=== PATIENT | male | born 1950 | race Caucasian/White ===

== ENCOUNTER 2023-11-27 14:43 | Inpatient (IN) | payer OTHER, SELFPAY ==
[2023-11-27] VITALS (32 sets, daily range): BP systolic 98–154; BP diastolic 52–114; PULSE 2–65; BMI 34.0
[2023-11-27 12:25] LABS: % Basophils 0.5 % (0-2); % Eosinophils 2.1 % (0-6); % Monocytes 8.3 % (1.7-9.3); % Neutrophils 71.1 % (42.2-75.2); Absolute Basophils 0.1 10^3/uL (0-0.2); Absolute Eosinophils 0.2 10^3/uL (0-0.7); Absolute Immature Granulocytes 0.1 10^3/uL (0-0.05); Absolute Neutrophils 8.3 10^3/uL (1.4-6.5); Hematocrit 33.4 % (39.0-52.0); Hemoglobin 11.3 g/dL (13.0-18.0); Mean Corp Hgb Conc. 33.8 g/dL (33.0-37.0); Mean Corpuscular Hgb 31.6 pg (27.0-31.0); Mean Corpuscular Volume 93.3 fL (80.0-94.0); Nucleated Red Blood Cells % 0 % (-); Red Blood Cell Count 3.58 10^6/uL (4.70-6.10); Red Cell Dist. Width 14.1 % (11.5-14.5); White Blood Cell Count 11.6 10^3/uL (4.8-10.8)
--- NOTE | 2023-11-27 12:26 | ED.GENMED ---
History of Present Illness
<Chuckie Livingston PA-C - Last Filed: 11/27/23 17:22>
General
Chief Complaint: Change in Mental Status
Time Seen by Provider: 11/27/23 12:07
Travel History
Have you had any contact with someone who has COVID-19?: No
Do you have any symptoms of coronavirus? Fever > 100 degrees, chills, cough, shortness of breath, sore throat, loss of taste or smell, muscle aches, or headache?: No
History of Present Illness
History of Present Illness:
73-year-old male with history of COPD, complete heart block status post pacemaker, hypertension, and CHF presents the emergency department via EMS due to cough for the past several days. He apparently had an episode of slurred speech and lateral
tingling at 11:00 this morning and the facility was concerned for stroke. On arrival the patient is oriented fully and states he has no tingling, does feel fatigued however. He reports a wet cough for the past several days, had an outpatient chest
x-ray apparently earlier this week that was negative. He denies any fevers or shortness of breath but was noted to have saturations in the low 80% range on room air. He denies any leg swelling or known weight gain.
Past History
<Chuckie Livingston PA-C - Last Filed: 11/27/23 17:22>
Past History
ED Past Medical History: Arrthythmia (Atrial fib), Asthma, CHF, COPD, HTN, IDDM and Other (Sleep apnea uses CPAP, )
ED Past Surgical History: Cardiac (Pacemaker), Orthopedic (Right hip surgery, Back surgery, ) and Tonsilectomy
Social History
Tobacco: Non-smoker
Alcohol: None
Personal: Single
Living: with family (Sister)
Family History
Family History: Unable to obtain
Review of Systems
<Chuckie Livingston PA-C - Last Filed: 11/27/23 17:22>
Review of Systems
Allergies reviewed?: Yes
All Other Systems: ROS reviewed and negative except as documented in HPI and ROS
Phy Exam
<Chuckie Livingston PA-C - Last Filed: 11/27/23 17:22>
Physical Exam
Physical Exam:
GEN: Fatigued but easily aroused, no distress
Eyes: PERRLA, EOMs intact, no scleral icterus
HENT: NCAT, oral mucosa moist
Lungs: Bibasilar rhonchi, some transmitted upper airway sounds, no wheezes
Cardiac: RRR, no M/R/G, no peripheral edema. Radial pulses 2+ bilat
Abdomen: S, NT, ND, NABS, no masses or hepatosplenomegaly
Neuro: Lethargic but easily aroused, oriented fully
MSK: No gross deformity or ecchymosis. No edema. No digital clubbing
Skin: No rashes, petechiae. Normal color, no pallor or jaundice.
Psych: Calm, cooperative, proper hygiene
Course
<Chuckie Livingston PA-C - Last Filed: 11/27/23 17:22>
Orders/Labs/Results
Orders:
Orders
11/27/23 12:05
Electrocardiogram (*1) Urgent
Reason for Study: Fatigue / Weakness
EKG- Treatment ONCE
11/27/23 12:13
Basic Metabolic Panel Urgent
Complete Blood Count/With Diff Urgent
Pro-BNP [NT-proBNP] Urgent
11/27/23 12:23
COVID-19 Antigen Urgent
Source: Nasal Swab
Lactic Acid Urgent
Blood Culture Routine
CHAD Source: Blood/Venous
Specimen Description:
Influenza A+B Rapid Molecular Urgent
CHAD Source: Nasal Swab
Specimen Description:
11/27/23 12:24
Venous Blood Gas Urgent
%Oxygen/Room Air: 4L
11/27/23 12:47
CR Chest - 2 Views Urgent
Comment:
Reason For Exam: SOB
11/27/23 13:15
Azithromycin 500 mg/250 ml [Zithromax Infusion] 500 mg in 250 ml IV NOW
CefTRIAXone [Rocephin] 1,000 mg IV NOW STA
11/27/23 13:18
Bipap [RESP] Urgent
Patient to use own unit?: No
Inspiratory Pressure (cm H2O): 14
Expiratory Pressure (cm H2O): 6
11/27/23 13:44
MethylPREDNISolone PF [Solu-Medrol Pf] 125 mg IV NOW STA
11/27/23 13:56
Blood Culture Routine
CHAD Source: Blood/Venous
Specimen Description:
11/27/23 13:57
CT Chest W/o Iv Contrast Urgent
Comment:
Reason For Exam: hypoxia
11/27/23 14:12
Urinalysis Reflex To Culture Routine
Sputum Culture [Respiratory Culture/Gram Stain] Routine
CHAD Source: Sputum
Specimen Description:
11/27/23 14:14
Admit/Transfer Patient As Directed
Co-Sign Provider:
Level of Care: Inpatient admission
Assign to:: ICU
Physician / Group: ambrose baker
Diagnosis: hypoxic resp failure confusion concern pna, hypercarbia,johanne/ckd 3b
Reason for Hospitalization: hypoxic resp failure concern pna, hypercarbia,johanne/ckd 3b
Expected length of stay greater than two midnights?: Yes
ELOS- Estimated Length of Stay in days: 4
I certify the patient meets the requirements for IP care: Yes
Code Status As Directed
Resuscitation Status: Full Code
11/27/23 14:17
Procalcitonin Urgent
PCT Algorithmm Indication: Respiratory
11/27/23 14:19
0.9% Sodium Chloride 1000 ml [Nss] 1,000 ml IV BOLUS
11/27/23 14:30
PULMONARY CONSULT Routine
Consulting Provider: Jhoan Kaba
Was physician already notified: Yes
Reason for consult: hyerpcapnic hypoxic resp failure
11/27/23 15:15
ABG [Arterial Blood Gas] Urgent
%Oxygen/Room Air: bipap
Comment: hypoxia
11/27/23 16:00
Cefepime HCl [Maxipime] 1,000 mg IV Q12H
VANCOMYCIN Pharmacy to Dose [VANCOCIN Pharmacy to Dose] 1 each Pharmacy To Prepare [Call Pharmacy To Prepare] 0 ml IV PER PROTOCOL
Abnormal Lab Results
11/27/23 11/27/23
12:13 12:24
WBC 11.6 H 10^3/uL
(4.8-10.8)
RBC 3.58 L 10^6/uL
(4.70-6.10)
Hgb 11.3 L g/dL
(13.0-18.0)
Hct 33.4 L %
(39.0-52.0)
MCH 31.6 H pg
(27.0-31.0)
Abs Immat Gran (auto) 0.1 H 10^3/uL
(0-0.05)
Absolute Neuts (auto) 8.3 H 10^3/uL
(1.4-6.5)
Absolute Monos (auto) 1.0 H 10^3/uL
(0.1-0.6)
Immature Gran % 1.0 H %
(0-0.5)
Lymphocytes % 17.0 L %
(20.5-51.1)
VBG pH 7.29 L
(7.32-7.43)
VBG pCO2 67 H mmHg
(35-48)
VBG pO2 61 H mmHg
(30-50)
VBG HCO3 32.2 H mmol/L
(27)
BUN 46 H mg/dl
(9-20)
Creatinine 1.9 H mg/dL
(0.7-1.3)
Glucose 201 H mg/dl
(70-99)
11/27/23 12:13
11/27/23 12:13
Vital Signs
Initial and Last Documented VS:
Initial Vital Signs
Pulse Resp Pulse Ox
64 21 96
11/27/23 12:04 11/27/23 12:04 11/27/23 12:04
Last Documented Vital Signs
Temp Pulse Resp BP Pulse Ox
99.3 F 58 16 120/62 98
11/27/23 12:06 11/27/23 17:07 11/27/23 17:07 11/27/23 17:07 11/27/23 17:07
<Keith Paulino MD - Last Filed: 11/27/23 16:45>
Orders/Labs/Results
Orders:
Orders
11/27/23 12:05
Electrocardiogram (*1) Urgent
Reason for Study: Fatigue / Weakness
EKG- Treatment ONCE
11/27/23 12:13
Basic Metabolic Panel Urgent
Complete Blood Count/With Diff Urgent
Pro-BNP [NT-proBNP] Urgent
11/27/23 12:23
COVID-19 Antigen Urgent
Source: Nasal Swab
Lactic Acid Urgent
Blood Culture Routine
CHAD Source: Blood/Venous
Specimen Description:
Influenza A+B Rapid Molecular Urgent
CHAD Source: Nasal Swab
Specimen Description:
11/27/23 12:24
Venous Blood Gas Urgent
%Oxygen/Room Air: 4L
11/27/23 12:47
CR Chest - 2 Views Urgent
Comment:
Reason For Exam: SOB
11/27/23 13:15
Azithromycin 500 mg/250 ml [Zithromax Infusion] 500 mg in 250 ml IV NOW
CefTRIAXone [Rocephin] 1,000 mg IV NOW STA
11/27/23 13:18
Bipap [RESP] Urgent
Patient to use own unit?: No
Inspiratory Pressure (cm H2O): 14
Expiratory Pressure (cm H2O): 6
11/27/23 13:44
MethylPREDNISolone PF [Solu-Medrol Pf] 125 mg IV NOW STA
11/27/23 13:56
Blood Culture Routine
CHAD Source: Blood/Venous
Specimen Description:
11/27/23 13:57
CT Chest W/o Iv Contrast Urgent
Comment:
Reason For Exam: hypoxia
11/27/23 14:12
Urinalysis Reflex To Culture Routine
Sputum Culture [Respiratory Culture/Gram Stain] Routine
CHAD Source: Sputum
Specimen Description:
11/27/23 14:14
Admit/Transfer Patient As Directed
Co-Sign Provider:
Level of Care: Inpatient admission
Assign to:: ICU
Physician / Group: ambrose baker
Diagnosis: hypoxic resp failure confusion concern pna, hypercarbia,johanne/ckd 3b
Reason for Hospitalization: hypoxic resp failure concern pna, hypercarbia,johanne/ckd 3b
Expected length of stay greater than two midnights?: Yes
ELOS- Estimated Length of Stay in days: 4
I certify the patient meets the requirements for IP care: Yes
Code Status As Directed
Resuscitation Status: Full Code
11/27/23 14:17
Procalcitonin Urgent
PCT Algorithmm Indication: Respiratory
11/27/23 14:19
0.9% Sodium Chloride 1000 ml [Nss] 1,000 ml IV BOLUS
11/27/23 14:30
PULMONARY CONSULT Routine
Consulting Provider: Jhoan Kaba
Was physician already notified: Yes
Reason for consult: hyerpcapnic hypoxic resp failure
11/27/23 15:15
ABG [Arterial Blood Gas] Urgent
%Oxygen/Room Air: bipap
Comment: hypoxia
11/27/23 16:00
Cefepime HCl [Maxipime] 1,000 mg IV Q12H
VANCOMYCIN Pharmacy to Dose [VANCOCIN Pharmacy to Dose] 1 each Pharmacy To Prepare [Call Pharmacy To Prepare] 0 ml IV PER PROTOCOL
Abnormal Lab Results
11/27/23 11/27/23
12:13 12:24
WBC 11.6 H 10^3/uL
(4.8-10.8)
RBC 3.58 L 10^6/uL
(4.70-6.10)
Hgb 11.3 L g/dL
(13.0-18.0)
Hct 33.4 L %
(39.0-52.0)
MCH 31.6 H pg
(27.0-31.0)
Abs Immat Gran (auto) 0.1 H 10^3/uL
(0-0.05)
Absolute Neuts (auto) 8.3 H 10^3/uL
(1.4-6.5)
Absolute Monos (auto) 1.0 H 10^3/uL
(0.1-0.6)
Immature Gran % 1.0 H %
(0-0.5)
Lymphocytes % 17.0 L %
(20.5-51.1)
VBG pH 7.29 L
(7.32-7.43)
VBG pCO2 67 H mmHg
(35-48)
VBG pO2 61 H mmHg
(30-50)
VBG HCO3 32.2 H mmol/L
(22-27)
BUN 46 H mg/dl
(9-20)
Creatinine 1.9 H mg/dL
(0.7-1.3)
Glucose 201 H mg/dl
(70-99)
11/27/23 12:13
11/27/23 12:13
Vital Signs
Initial and Last Documented VS:
Initial Vital Signs
Pulse Resp Pulse Ox
64 21 96
11/27/23 12:04 11/27/23 12:04 11/27/23 12:04
Last Documented Vital Signs
Temp Pulse Resp BP Pulse Ox
99.3 F 58 16 120/62 98
11/27/23 12:06 11/27/23 17:07 11/27/23 17:07 11/27/23 17:07 11/27/23 17:07
Procedures
<Chuckie Livingston PA-C - Last Filed: 11/27/23 17:22>
Intubations
Procedure completed by: Chuckie Livingston PA-C
Method of Intubation: glidescope
Tube size (cm): 8.0
Placement confirmed by: auscutation, CXR, capnography and direct visualization
Breath sounds after intubation: equal
Intubation complications: no complications
<Chuckie Livingstno PA-C - Last Filed: 11/27/23 17:22>
MDM/Problems Addressed
MDM/Problems Addressed:
Patient presenting from nursing facility with several days of URI type symptoms. On arrival [facility] notes that he had slurred speech and unilateral paresthesias however the patient denies this, states that he has felt fatigued for several
days. Apparently had an outpatient chest x-ray that was negative for pneumonia. Patient's lung exam is limited by poor inspiration however no overt wheezing is heard, VBG notes slight acidosis with hypercapnia thus the patient is initiated on
BiPAP. Empiric IV antibiotics and steroids initiated due to the patient's significant hypoxemia. He is anticoagulated thus I do not suspect PE. Does not appear volume overloaded to suggest acute CHF. After patient was admitted to the hospital
service he became increasingly attended while remaining in the emergency department and ultimately required intubation. Upgraded to ICU level of care
<Chuckie Livingston PA-C - Last Filed: 11/27/23 17:22>
*Critical Care Note
Total Time (30-74mins, 75-104mins- exclusive of procedures): 90 minutes
comment:
Critical care time: 90 minutes
Critical care time was exclusive of: Separately billable procedures, treating other patients, and teaching time
Critical care was necessary to treat or prevent imminent or life-threatening deterioration of the following conditions: Acute respiratory failure with hypoxia and hypercapnia
Critical care time spent personally by me on the following activities:
[x] Review of old charts
[x] Obtaining history from patient or surrogate
[x] Ordering and review of the laboratory studies
[x] Ordering and review of radiographic studies
[x] Ordering and performing treatments and interventions
[x] Patient patient's response to treatment
[x] Development of treatment plan with patient or surrogate
<Chuckie Livingston PA-C - Last Filed: 11/27/23 17:22>
Update Note
Update Note:
1615: Called, patient increasingly obtunded compared to prior. Already has been admitted to the hospitalist service to the IMU however awaiting bed placement. Patient is now minimally arousable to sternal rub. Respiratory notified, will obtain
ABG but will plan for intubation
1645: Patient intubated successfully on first pass, chest x-ray shows good placement however repeat imaging reviewed by myself shows left upper lobe/retrocardiac density that is new compared to prior. Would be atypical for aspiration however this
is considered in the setting of BiPAP use. Patient's sister updated by phone regarding his status
ED Attending Note
<Chuckie Livingston PA-C - Last Filed: 11/27/23 17:22>
-
Portions of this chart may have been created with voice recognition software.� Occasional wrong word or��sound alike� substitutions may have occurred due to the inherent limitations of voice recognition software.
<Keith Paulino MD - Last Filed: 11/27/23 16:45>
ED Attending Note
Patient seen and examined by attending physician: Yes
ED Attending Note:
I have seen and evaluated the patient with a [id number] encounter. I have spoken to the advance practicer provider and involved in the medical history, the physical exam, medical decision making.
Evaluation and management service: agree unless noted differently below.
Results interpretation: agree unless noted differently below.
Focused HPI: 73-year-old male with history as documented presents from SNF for slurred speech and fatigue, cough for the past few days. Reported generalized fatigue.
Physical exam: Somewhat lethargic but arousable, vital signs normal. Rhonchorous breath sounds. No notable edema.
Medical Decision Makin-year-old male presents for cough and slurred speech and lethargy. Labs sent off including a CBC which shows a slight leukocytosis, CMP which shows baseline renal function with a creatinine of 1.9. He had a VBG which
showed CO2 retention, suspect some element of COPD. He was placed on BiPAP and admitted to hospital service. After admission mental status work is worsening becoming increasingly lethargic and difficult to arouse. Decision made to
intubate�patient intubated by physicians workers compensation claims assistant with me at the bedside. Pulmonology, surface lay out technician, hospitalist all came to bedside to assess and level of care upgraded.
Discharge Plan
Departure
Patient Disposition: Admit
Date of Disposition: 11/27/23
Time of Disposition: 13:48
Admit to: IMU
Presentation/result/management discussed w/ accepting MD/DO: Hospitalist
Discharge Problem:
Acute respiratory failure with hypoxia and hypercapnia
Interventions
Interventions:
*Risk Screen - Suicide Last Done: 11/27/23 12:11
*General Assessment Last Done: 11/27/23 12:49
*Neglect/Abuse Screening Last Done: 11/27/23 12:11
ED- Fall Risk Assessment Last Done: 11/27/23 12:48
ED- Pulmonary Assessment Last Done: 11/27/23 17:17
ED-Psychological Assessment Last Done: 11/27/23 12:50
ED- Neurological Assessment Last Done: 11/27/23 12:07
ED- Cardiac Assessment Last Done: 11/27/23 12:09
[2023-11-27 12:42] LABS: Venous Blood Gas HCO3 32.2 mmol/L (22-27); Venous Blood Gas O2 Sat % 86.8 %; Venous Blood Gas pCO2 67 mmHg (35-48); Venous Blood Gas pH 7.29 (7.32-7.43); Venous Blood Gas pO2 61 mmHg (30-50)
[2023-11-27 12:47] LABS: NT-proBNP 319 pg/ml
[2023-11-27 12:48] LABS: Blood Urea Nitrogen 46 mg/dl (9-20); Calcium 8.4 mg/dl (8.4-10.2); Carbon Dioxide 29 mmol/L (22-30); Chloride 104 mmol/L (98-107); Glucose 201 mg/dl (70-99); Sodium 138 mmol/L (135-145); eGFR 36.33
[2023-11-27 12:56] LABS: Lactic Acid 0.9 mmol/L (0.7-2.0)
[2023-11-27 12:59] LABS: COVID-19 Antigen Negative (Negative)
--- NOTE | 2023-11-27 13:54 | HPS.HSE ---
Addendum entered and electronically signed by Ramon Betts MD 11/27/23 14:48:
I saw and examined the patient.
The SLEEVE MAKER or PA's note was reviewed and I agree with the note.
Comment: 73-year-old male who presents with cough and hypoxia.
127/56, 57, 24, 99.3 F, 96% bipap 14/6, 4L O2
NAD, lethargic but arousable, NCAT
RRR, normal S1/S2
CTAB anteriorly
WBC 11.6, Hb 11.3
Cr 1.9
VB.29/67/61
CXR: Low lung volumes with moderate elevation of the right hemidiaphragm. No focal airspace disease. No pleural effusions.
Acute hypoxemic and hypercapnic respiratory failure:
-No obvious source of infection. For now we will continue antibiotics.
-Check CT scan of the chest (w/o IV contrast with NAOMI and PE being less likely as pt on therapeutic anticoagulation)
-Check ABG
-Consult pulmonary
Original Note:
Family Physician
-
Family Physician: Woody Rodney
Chief Complaint
-
Cough times several days, hypoxia
History of Present Illness
73-year-old male [facility] a [facility] cough for the past several days he was noted to have O2 saturation in the low 80%. He also reported episode of slurred speech with tingling at 11 AM this morning and his facility was
concerned about a stroke he however denies current symptoms but does report fatigue along with a headache for the past few days a wet productive cough of unclear color and short of breath. He reports he is too tired to answer more questions. He
denies sore throat, chest pain, palpitations, abdominal pain, nausea, vomiting, diarrhea, urinary symptoms.
PMH left retroperitoneal hematoma June 2023 with blood loss anemia, CKD 3B, DM 2, diabetic neuropathy, combined diastolic/systolic CHF, COPD, asthma, sleep apnea, third-degree heart block status post permanent pacemaker, paroxysmal A-fib, HTN,
chronic constipation obesity, nonambulatory
Medical History
Past Medical History
Past Medical History: Reports Other (diabetes, left hip pain with ambulatory dysfunction, chronic back pain, third-degree heart block status post permanent pacemaker, paroxysmal atrial fibrillation, hypertension, combined diastolic/systolic CHF,
COPD, asthma, sleep apnea, chronic constipation)
Additional Past Medical History:
left retroperitoneal hematoma June 2023 with blood loss anemia
Past Surgical History: Reports Other
Additional Past Surgical History:
Pacemaker�third-degree heart block
Right hip surgery
L4-L5 laminectomy
Tonsillectomy
Social History
Tobacco: Non-smoker
Alcohol: None
Drug: None
Family History
Family History: Unable to Obtain
Allergies / Home Medications
Allergies reflects when Allergies were last updated in [facility].
Home Medications with original date entered in [facility]
Allergy/Medication List:
Allergies
Allergy/AdvReac Type Severity Reaction Status Date / Time
No Known Allergies Allergy Verified 05/21/23 11:51
Home Medications
atorvastatin 10 mg tablet (Lipitor) 10 mg PO HS High cholesterol 09/04/22
escitalopram oxalate 20 mg tablet (Lexapro) 20 mg PO DAILY Depression 09/04/22
fluticasone 100 mcg-salmeterol 50 mcg/dose blistr powdr for inhalation (Wixela Inhub) 1 inh inhalation R BID Lung/breathing issues 09/05/22
loperamide 2 mg tablet (Imodium A-D) 2 mg PO BID PRN diarrhea 09/05/22
furosemide 40 mg tablet 40 mg PO DAILY #0 tabs 09/10/22
apixaban 5 mg tablet (Eliquis) 5 mg PO BID Blood thinner #30 tabs 05/06/23
gabapentin 300 mg capsule 300 mg PO BID Pain 06/12/23
docusate sodium 100 mg capsule 100 mg PO BID #0 caps 06/24/23
polyethylene glycol 3350 17 gram oral powder packet (HealthyLax) 17 g PO DAILY #0 ea 06/24/23
oxycodone 5 mg tablet 5 mg PO BID #4 tabs 06/26/23
acetaminophen 325 mg tablet (Tylenol) 650 mg PO Q4HPRN PRN mild pain 11/27/23
aluminum-mag hydroxide-simethicone 225 mg-200 mg-25 mg/5 mL oral susp 30 ml PO DAILYPRN PRN reflux 11/27/23
bisacodyl 10 mg rectal suppository (Dulcolax (bisacodyl)) 10 mg UT DAILYPRN PRN if no bm afte mom 11/27/23
buspirone 10 mg tablet 10 mg PO BID 11/27/23
carboxymethylcellulose 0.5 %-glycerin 0.9 % eye drops (Refresh Optive) 2 drp BOTH EYES BID 11/27/23
carvedilol 3.125 mg tablet 6.25 mg PO BID 11/27/23
hydralazine 25 mg tablet 25 mg PO TID 11/27/23
magnesium hydroxide 400 mg/5 mL oral suspension (Milk of Magnesia) 2,400 mg PO DAILYPRN PRN constipation 11/27/23
ondansetron HCl 4 mg tablet 4 mg PO Q6HPRN PRN nausea 11/27/23
pantoprazole 40 mg tablet,delayed release (Protonix) 40 mg PO DAILY 11/27/23
sennosides 8.6 mg tablet (senna) 17.2 mg PO BIDPRN PRN constipation 11/27/23
sodium phosphates 19 gram-7 gram/118 mL enema (Fleet Enema) 118 ml UT DAILYPRN PRN if no bm aftr dulcolax 11/27/23
valsartan 80 mg tablet 80 mg PO BID 11/27/23
Review of Systems
-
History Source: Patient
A 12 point ROS was completed and negative except as noted: Yes
Constitutional: Reports Fatigue; Denies Fever or Chills
EENT: Denies Sore Throat or Runny Nose
Respiratory: Reports Cough and Trouble Breathing
Cardiac: Denies Chest Pain, Diaphoresis, Palpitations or Syncope
Abdomen/GI: Denies Abdominal Pain, Nausea, Vomiting, Diarrhea, Constipated, Bloody Stools or Black Stools
: Denies Dysuria, Frequency, Flank Pain, Incontinence, Difficulty Voiding or Urgency
Musculoskeletal: Denies Joint Pain or Edema
Skin: Denies Itching or Rash
Neurological: Reports Weakness (Generalized); Denies Dizzy or Headache
Endocrine: Reports No Symptoms
Hematologic/Lymphatic: Reports No Symptoms
Psych: Reports Calm
Physical Exam
Vital Signs
Vital Signs
Temp Pulse Resp BP Pulse Ox
99.3 F 57 24 127/56 96
11/27/23 12:06 11/27/23 12:30 11/27/23 12:30 11/27/23 12:06 11/27/23 12:30
Physical Exam
General: Obese and Other (Lethargic male); No Pain or Fever
HEENT: NormoCephalic, Anicteric, PERRLA, Shell Conjunctivae, No Ptosis and Oxygen (BiPAP in place)
Respiratory: Rhonchi (Right upper/right middle lobe); No Wheezes or Rales
Cardiac: S1/S2 and Other (Paced on the monitor); No Murmur, Rub, Gallop or Peripheral Edema
Breast: Deferred by me
GI: Soft, Non Tender, Non Distended, Normal Bowel Sounds and No Hepatosplenomegaly
Rectal: Deferred by Provider
Genito-urinary: Deferred by me
Musculoskeletal: No Clubbing, No Cyanosis and No Edema
Skin: Warm and Dry; No Rash
Neuro: No Sensory Deficits and Other (Drowsy but oriented to name does answer some questions but states he is too tired to answer any more); No Slurred Speech, Facial Droop or Tremors
Psych: Calm
Laboratory Results
-
11/27/23 12:13
02/22/24 12:13
Laboratory Results
Lactic Acid 0.9 mmol/L (0.7-2.0) 11/27/23 12:23
Total Bilirubin Cancelled 11/27/23 12:13
AST Cancelled 11/27/23 12:13
ALT Cancelled 11/27/23 12:13
Alkaline Phosphatase Cancelled 11/27/23 12:13
Data Reviewed
-
CT Scan: Report Reviewed by me
Lab Data: Labs Reviewed by me
Impression/Plan
-
Impression/plan:
Admit to IMU
#Acute hypoxic hypercapnic respiratory failure unclear etiology concern poss PNa
Reported low 80% RA, 96% on BiPAP support, afebrile 99.3
COVID�flu negative
-Check CT chest
-Continue BiPAP support
-Consult pulmonary
-Blood cultures x 2, sputum culture, UA WORKFORCE DEVELOPMENT SPECIALIST
-IV Rocephin, IV Zithromax given in ER will change to IV vancomycin IV cefepime
-Speech swallow eval
PT/OT/case management eval
CXR: Low lung volumes with moderate elevation of the right hemidiaphragm
#Hypotension/Benign HTN 2/2 to volume depletion from diuretics
98/65 > 107/68
Hold carvedilol, Lasix 40 mg daily, hydralazine 25 mg 3 times daily, valsartan 80 mg twice daily
#NAOMI on CKD stage IIIb 2/2 to volume depletion from diuretics
Creat 1.9/bun 46 baseline creat 1.08 June 2023
Hold Lasix 40 mg daily
-IV NSS 1 L in ER then continue IV NSS 60 cc/h monitor LYNDON
#Combined diastolic/systolic CHF
I/O, daily weights
Follows with [facility]
2D echo 09/06/2022: EF 55 to 60%, normal LVS LVSF, trace MR, trace TR
#Paroxysmal A-fib
-Continue Eliquis
-Continue carvedilol 3.125 mg twice daily
EKG atrial sensed ventricular paced rhythm 59 bpm, QTc 485 MS no change from June 2023
#Permanent pacemaker�third-degree heart block
#DM2 with diabetic neuropathy
Accu-Cheks with SSI, check HgbA1c
-Continue gabapentin 300 mg twice daily
#COPD�no acute exacerbation
-Continue inhalers
#Asthma�no acute exacerbation
-cont inhalers
#Sleep apnea
-Patient uses BiPAP
#Fall with left retroperitoneal hematoma June 2023/blood loss anemia
Did receive 1 unit of blood at that time
#Hx back pain
#Spinal stimulator, laminectomies L4-L5
-Hold oxycodone 5 mg twice daily for drowsiness
#Chronic constipation
-Continue bowel regimen
#Depression
-Continue Lexapro 20 mg daily
#Obesity due to excess calorie consumption
-Weight loss recommended
DVT prophylaxis
Continue HOUSEKEEPER HEAD Eliquis
Full code
[2023-11-27] MEDS: ROCEPHIN 1000 MG IV (14:02)
[2023-11-27] MEDS: ZITHROMAX INFUSION 250 IV (14:05)
[2023-11-27] MEDS: SOLU-MEDROL PF 125 MG IV (14:12)
[2023-11-27] MEDS: NSS 1000 IV ×2 (14:45→19:52)
[2023-11-27 14:58] LABS: Procalcitonin 0.08 ng/ml (0.0-0.25)
[2023-11-27 15:25] LABS: B.E. 3.5 mmol/L; HCO3 29.1 mmol/L (21-28); O2 Saturation % 98.9 % (94-98); PCO2 48 mmHg (35-48); PO2 154 mmHg (83-108); pH 7.39 (7.35-7.45)
--- NOTE | 2023-11-27 15:36 | PHA.VAN.IN ---
Assessment
- Assessment
Renal Function: Appears elevated from baseline (SCR 1.3 in Jun 2023)
Plan
- Plan
Initial / Loading Dose: 2000mg - administration pending
Maintenance Regimen: dosing by level
Monitoring: random 11/28 0600
MRSA Screen: Ordered per protocol
Pharmacokinetics Vancomycin I
- -
Patient Age: 73
Patient Sex: Male
Vancomycin Day #: 1
Indication: Pulmonary/Respiratory
Requesting Provider: Jaguar Rojo
Pertinent Antimicrobial Allergies:
NKDA
Height / Weight:
Height 5 ft 11 in
Actual Weight 113.2 kg
Pertinent Past Medical History: BMI ~35
- Vital Signs / Lab Results
Temp Pulse Resp BP Pulse Ox
99.3 F 53 18 110/72 96
11/27/23 12:06 11/27/23 15:35 11/27/23 15:35 11/27/23 15:35 11/27/23 15:35
Lab Results - Hematology
11/27/23
12:13
WBC 11.6 H
Lab Results - Chemistry
11/27/23
12:13
BUN 46 H
Creatinine 1.9 H
Albumin Cancelled
11/27/23
12:23
Lactic Acid 0.9
Microbiology Results
11/27/23 12:23 Influenza Types A & B (RAJ) - Final
Nasal Swab Negative for Influenza A & B, NAAT
Negative results must be combined with clinical observations
and patient history.
Nucleic Acid Amplification test (NAAT)performed on the
[employer] platform.
--- NOTE | 2023-11-27 15:46 | CM ---
Addendum entered by Lesly Echeverria 11/27/23 15:52:
Per chart review as recently as 2022 patient had been at [facility] and was verbalizing that he was Short term care and wanted to return home with his sister. When patient able to discuss wishes will need to review.
Original Note:
Patient is a LTC patient at [facility]. CM spoke with the admissions person at [facility] to confirm. Patient was at [facility] in 2022 and did need auth at that time. No transfer form available for review at this time. Patient has
CPAP at facility. Plan is for patient to return to SNF when medically appropriate. CM will continue to follow for discharge planning needs.
Plan; return to SNF pending auth
[2023-11-27] MEDS: MAXIPIME 1000 MG IV (15:52)
[2023-11-27] MEDS: STERILE WATER FOR INJECTION 10 ML IV (15:52)
[2023-11-27] MEDS: VANCOCIN 540 MG IV (15:57)
[2023-11-27] MEDS: SUBLIMAZE 100 MCG IV ×2 (16:43→16:58)
--- NOTE | 2023-11-27 16:43 | CON.INTV ---
Addendum entered and electronically signed by Nima Dejesus MD 11/27/23 17:19:
Ventilator setting reviewed
Wean FiO2 down to 40%
Repeat ABG upon arrival to ICU and in a.m.
Avoid overventilation
Send tracheal culture
Original Note:
Consultation
Consultation Request
Date/Time Consultation Requested: 11/27
Date/Time Consultation Performed: 11/27
Reason for Consultation: Critical care
Medical History
-
History of Present Illness:
History obtained from the chart, patient currently being intubated. 73-year-old male with history of underlying asthma, sleep apnea on CPAP, atrial fibrillation with heart failure, history of multiple falls who presents with increased upper
respiratory symptoms for the past few days and hypoxia from the snf. ED records suggest slurred speech, tingling. Patient developed progressive obtundation, lethargy despite noninvasive ventilation and pCO2 level of 48. Patient was
intubated in the ED. Upon arrival to the ED, pulse 64, breathing at 21, 96%. Cultures were obtained, patient was given antibiotics and methylprednisolone. Chest x-ray revealed chronically elevated right hemidiaphragm with no obvious acute
findings. We are asked to help from critical care standpoint
.
PMH: Diabetes, atrial fibrillation, heart failure, third-degree heart block with pacemaker, hypertension, history of asthma, sleep apnea on CPAP in the past, history of multiple falls, retroperitoneal hematoma with anemia 2022, right hip surgery,
laminectomy, tonsillectomy
Past Medical History
Past Medical History: None (See above)
Past Surgical History: None (See above)
Social History
Tobacco: Non-smoker
Alcohol: None
Drug: None
Living: Care Home
Family History
Family History: Unable to Obtain
Allergies / Home Medications
Allergies
Allergy/AdvReac Type Severity Reaction Status Date / Time
No Known Allergies Allergy Verified 05/21/23 11:51
Home Medications
Medication Instructions Recorded Confirmed Last Taken Type
atorvastatin 10 mg tablet (Lipitor) 10 mg PO HS High cholesterol 09/04/22 11/27/23 Unknown History
escitalopram oxalate 20 mg tablet 20 mg PO DAILY Depression 09/04/22 11/27/23 Unknown History
(Lexapro)
fluticasone 100 mcg-salmeterol 50 1 inh inhalation R BID 09/05/22 11/27/23 Unknown History
mcg/dose blistr powdr for Lung/breathing issues
inhalation (Wixela Inhub)
loperamide 2 mg tablet (Imodium 2 mg PO BID PRN diarrhea 09/05/22 11/27/23 Unknown History
A-D)
furosemide 40 mg tablet 40 mg PO DAILY #0 tabs 09/10/22 11/27/23 Unknown Rx
apixaban 5 mg tablet (Eliquis) 5 mg PO BID Blood thinner #30 tabs 05/06/23 11/27/23 Unknown Rx
gabapentin 300 mg capsule 300 mg PO BID Pain 06/12/23 11/27/23 Unknown History
docusate sodium 100 mg capsule 100 mg PO BID #0 caps 06/24/23 11/27/23 Unknown Rx
polyethylene glycol 3350 17 gram 17 g PO DAILY #0 ea 06/24/23 11/27/23 Unknown Rx
oral powder packet (HealthyLax)
oxycodone 5 mg tablet 5 mg PO BID #4 tabs 06/26/23 11/27/23 Unknown Rx
acetaminophen 325 mg tablet 650 mg PO Q4HPRN PRN mild pain 11/27/23 11/27/23 Unknown History
(Tylenol)
aluminum-mag hydroxide-simethicone 30 ml PO DAILYPRN PRN reflux 11/27/23 11/27/23 Unknown History
225 mg-200 mg-25 mg/5 mL oral susp
bisacodyl 10 mg rectal suppository 10 mg [place] DAILYPRN PRN if no bm 11/27/23 11/27/23 Unknown History
(Dulcolax (bisacodyl)) afte mom
buspirone 10 mg tablet 10 mg PO BID 11/27/23 11/27/23 Unknown History
carboxymethylcellulose 0.5 2 drp BOTH EYES BID 11/27/23 11/27/23 Unknown History
%-glycerin 0.9 % eye drops
(Refresh Optive)
carvedilol 3.125 mg tablet 6.25 mg PO BID 11/27/23 11/27/23 Unknown History
hydralazine 25 mg tablet 25 mg PO TID 11/27/23 11/27/23 Unknown History
magnesium hydroxide 400 mg/5 mL 2,400 mg PO DAILYPRN PRN 11/27/23 11/27/23 Unknown History
oral suspension (Milk of Magnesia) constipation
ondansetron HCl 4 mg tablet 4 mg PO Q6HPRN PRN nausea 11/27/23 11/27/23 Unknown History
pantoprazole 40 mg tablet,delayed 40 mg PO DAILY 11/27/23 11/27/23 Unknown History
release (Protonix)
sennosides 8.6 mg tablet (senna) 17.2 mg PO BIDPRN PRN constipation 11/27/23 11/27/23 Unknown History
sodium phosphates 19 gram-7 118 ml [place] DAILYPRN PRN if no bm 11/27/23 11/27/23 Unknown History
gram/118 mL enema (Fleet Enema) aftr dulcolax
valsartan 80 mg tablet 80 mg PO BID 11/27/23 11/27/23 Unknown History
Review of Systems
-
Unable to Obtain full review of systems at this time due to: Patient Intubation
Vitals / Labs / Diagnostic Testing
Vital Signs
Temp Pulse Resp BP Pulse Ox
99.3 F 65 18 110/65 99
11/27/23 12:06 11/27/23 16:35 11/27/23 16:35 11/27/23 16:35 11/27/23 16:35
Lab Data
11/27/23 12:13
11/27/23 12:13
Laboratory Results
11/27/23
15:15
pH 7.39
pCO2 48
pO2 154 H
HCO3 29.1 H
O2 Delivery Level
Microbiology
11/27/23 12:23 Nasal Swab Influenza Types A & B (RAJ) - Final
Negative for Influenza A & B, NAAT
Negative results must be combined with clinical observations
and patient history.
Nucleic Acid Amplification test (NAAT)performed on the
[employer] platform.
Diagnostic Testing:
Physical Exam
-
HEENT: Normocephalic
Cardiovascular: S1/S2, Regular Rhythm, Murmur (n), Rub (n) and Peripheral Edema (tr)
Respiratory: Wheeze (n), Rales (n), Rhonchi (n), Non-Labored Respirations, Other (Decreased at base) and Other (ET tube)
GI: Soft and Non Distended
Neurology: Other (Sedated, post intubation)
Skin: Other (No rash, no clubbing, no cyanosis)
General: Comfortable (Lying flat)
Assessment
-
73-year-old male with history of hypertension, atrial fibrillation on anticoagulation, asthma, sleep apnea on CPAP therapy snf resident who presents with URI symptoms for few days. Patient was also noted to be hypoxic, lethargic,
progressive lethargy despite BiPAP therapy. Patient was intubated in the ER. We are asked to help from critical care standpoint 11/27/2023
Acute respiratory failure
Intubated in ED, 11/27/2023
Hypercapnia suspected
Leukocytosis
Questionable left lower lobe pneumonia on repeat imaging
Renal insufficiency, creatinine 1.9
CKD
Hyperglycemia
Conditions present prior to admission
History of Retroperitoneal hematoma June 2023
Hemorrhagic shock
Recurrent falls/ambulatory dysfunction
Chronic atrial fibrillation on Eliquis
Hypertension/hyperlipidemia
Diabetes type 2.�
Heart failure-diastolic and systolic
Third-degree heart block status post PPM
EARL on CPAP 9 cm.�
Chronic constipation.
Cholelithiasis
Right hip surgery.� Spinal stimulator.� Laminectomy.� Right shakir femur.� Tonsillectomy
[facility] resident
Plan/recommendations
At this time, patient remains critically ill
Presented with increased lethargy, upper respiratory symptoms, questionable hypoxia.
Became progressively lethargic despite noninvasive ventilation and pCO2 level of 48 which is likely compensated
Patient was intubated at the bedside in the ED
Follow-up chest x-ray revealed questionable left lower lobe pneumonia per my review, appropriate ET tube
Moving forward
Continue with current management including antibiotics for pneumonia. Patient resides at snf
Received Zithromax, Rocephin, vancomycin, cefepime
Influenza negative, blood cultures pending
Will send tracheal culture postintubation
Repeat potassium levels, received succinylcholine/etomidate for intubation
Initial sample hemolyzed
Patient with chronically elevated right hemidiaphragm per prior imaging
Target 6 cc/kg Vt
Following airway pressures
Avoid overventilation
Await head imaging to rule out intracranial process
Less likely thromboembolic disease, remains on Eliquis for atrial fibrillation
Reviewed with primary service, critical care nursing, respiratory care, ED nurse
Reviewed with pharmacy
TCCT 35 min
[2023-11-27] MEDS: DIPRIVAN 100 IV ×3 (17:00→23:56)
[2023-11-27 18:33] LABS: INR 1.89; PT 21.9 Sec (11.4-14.6); Potassium 4.2 mmol/L (3.5-5.1)
[2023-11-27 18:34] LABS: APTT 42.5 Sec (23.4-35.0)
[2023-11-27 19:49] LABS: Urine Albumin Trace (Neg - Trace); Urine Bilirubin Negative (Negative); Urine Character Clear (Clear); Urine Color Yellow; Urine Glucose Negative (Negative); Urine Ketone Negative (Negative); Urine Leukocyte Negative (Negative); Urine Nitrite Negative (Negative); Urine Occult Blood Negative (Negative); Urine Urobilinogen Negative (Neg - 1+)
[2023-11-27 20:04] LABS: Glucose - Point of Care 202 mg/dl (70-99)
[2023-11-27] MEDS: ADVAIR HFA 45/21 MCG INHALER 4 PUFF INH (20:08)
[2023-11-27] MEDS: NOVOLOG FLEXPEN 3 UNITS SC (20:11)
--- NOTE | 2023-11-27 20:15 | PTCARENOTE ---
Addendum entered by Debra Harper RN 11/27/23 21:39:
ICU SPEECH THERAPIST confirmed OGT placement via CXR.
Original Note:
received patient from ER at change of shift. pupils b/l 2mm brisk. propofol gtt infusing through PIV. V paced on monitor, HR in 60s. BP stable, see VS. temp 98F. #8 ETT, 24 at lip. AC 16-500-5-60%. rhonchi breath sounds noted. blood tinged
secretions through ETT. + bowel sounds.
1930- b/l soft wrist restraints placed. OGT inserted, CXR ordered by ICU SPEECH THERAPIST. temp sensing silverman catheter inserted, 500ml initial output. UA, MRSA, sputum sent. labs sent. CHG bath. plan of care ongoing.
[2023-11-27 20:39] LABS: Triglycerides 81 mg/dl (10-149)
[2023-11-27] MEDS: SUBLIMAZE 50 MCG IV ×2 (22:35→23:56)
[2023-11-27] MEDS: BUSPAR 10 MG TUBE (22:44)
[2023-11-27] MEDS: LIPITOR 10 MG TUBE (22:44)
[2023-11-27] MEDS: NEURONTIN 300 MG TUBE (22:44)
[2023-11-27] MEDS: ELIQUIS 5 MG TUBE (22:44)
[2023-11-27] MEDS: COLACE LIQUID 100 MG TUBE (22:44)
[2023-11-27] MEDS: REFRESH EYE DROPS (PF) 2 DROPS BOTH EYES (22:44)
[2023-11-27 23:36] LABS: Glucose - Point of Care 235 mg/dl (70-99)
[2023-11-27] MEDS: SUBLIMAZE 100 IV (23:57)
[2023-11-28] VITALS (25 sets, daily range): BP systolic 89–148; BP diastolic 42–77; BMI 34.0
[2023-11-28] MEDS: NOVOLOG FLEXPEN-MODERATE RESISTANCE 3 UNITS SC ×3 (00:16→17:32)
--- NOTE | 2023-11-28 00:19 | PTCARENOTE ---
Addendum entered by Debra Harper RN 11/28/23 02:04:
ICU FARM MACHINERY ENGINE MECHANIC updated sister via phone. [place] updated as well.
Original Note:
patient reassessed. prop and fent gtts infusing. vent settings unchanged, moderate amount of blood tinged secretions. oral care and suction provided. patient repositioned. plan of care ongoing.
[2023-11-28] MEDS: DIPRIVAN 100 IV ×5 (03:18→20:00)
[2023-11-28] MEDS: STERILE WATER FOR INJECTION 10 ML IV ×2 (03:18→15:09)
[2023-11-28] MEDS: MAXIPIME 2000 MG IV ×2 (03:18→15:09)
[2023-11-28 03:51] LABS: % Basophils 0.3 % (0-2); % Immature Granulocytes 3.1 % (0-0.5); % Lymphocytes 9.7 % (20.5-51.1); % Monocytes 1.9 % (1.7-9.3); Absolute Immature Granulocytes 0.3 10^3/uL (0-0.05); Absolute Lymphocytes 0.9 10^3/uL (1.2-3.4); Absolute Monocytes 0.2 10^3/uL (0.1-0.6); Absolute Neutrophils 7.7 10^3/uL (1.4-6.5); Hematocrit 30.5 % (39.0-52.0); Hemoglobin 10.8 g/dL (13.0-18.0); Mean Corp Hgb Conc. 35.4 g/dL (33.0-37.0); Mean Corpuscular Volume 87.6 fL (80.0-94.0); Mean Platelet Volume 13.4 fL (7.4-10.4); Nucleated Red Blood Cells % 0 % (-); Platelet Count 145 10^3/uL (130-400); Red Blood Cell Count 3.48 10^6/uL (4.70-6.10); Red Cell Dist. Width 13.7 % (11.5-14.5)
[2023-11-28 04:08] LABS: ALT (SGPT) 11 U/L (0-50); AST (SGOT) 14 U/L (17-59); Albumin 2.9 g/dl (3.5-5.0); Alkaline Phosphatase 68 U/L (38-126); Blood Urea Nitrogen 48 mg/dl (9-20); Calcium 8.6 mg/dl (8.4-10.2); Carbon Dioxide 24 mmol/L (22-30); Chloride 106 mmol/L (98-107); Estimated Creatinine Clearance 47 ml/min; Glucose 254 mg/dl (70-99); Potassium 3.6 mmol/L (3.5-5.1); Sodium 139 mmol/L (135-145); Total Bilirubin 0.8 mg/dl (0.2-1.3); Total Protein 6.3 g/dl (6.3-8.2); eGFR 41.52
[2023-11-28 04:18] LABS: B.E. 1.5 mmol/L; HCO3 24.2 mmol/L (21-28); O2 Saturation % 98.6 % (94-98); PCO2 31 mmHg (35-48); PO2 119 mmHg (83-108)
[2023-11-28 04:21] LABS: O2 Therapy 40%
[2023-11-28 04:53] LABS: Vancomycin Random 17.7 ug/ml
--- NOTE | 2023-11-28 05:08 | PTCARENOTE ---
patient reassessed. AM labs and ABG sent. vent settings adjusted: AC 14-500-5-40%. oral care and suction provided. breath sounds clear, slightly diminished. silverman care done. pt repositioned, pillows under extremities, restraints on. plan of care
ongoing.
[2023-11-28] MEDS: NOVOLOG FLEXPEN-MODERATE RESISTANCE 5 UNITS SC (05:23)
--- NOTE | 2023-11-28 07:15 | W.PN.INTV ---
Today's Communication / Plan
Recommendations
Transition to ASV
ABG in a.m.
Increase IV fluids, boluses as needed
May require PICC line
Follow hemoptysis
Replete potassium
Start tube feeds
Assessment
-
73-year-old male with history of hypertension, atrial fibrillation on anticoagulation, asthma, sleep apnea on CPAP therapy custodial resident who presents with URI symptoms for few days. Patient was also noted to be hypoxic, lethargic,
progressive lethargy despite BiPAP therapy. Patient was intubated in the ER. We are asked to help from critical care standpoint 11/27/2023
Acute respiratory failure
Intubated in ED, 11/27/2023
Hypercapnia suspected
Leukocytosis
Left lower lobe pneumonia
Intermittent hemoptysis
Renal insufficiency, creatinine 1.9
CKD
Hyperglycemia
Conditions present prior to admission
History of Retroperitoneal hematoma June 2023
Hemorrhagic shock
Right adrenal mass, stable compared to June 2023
Suspected adenoma per imaging
Recurrent falls/ambulatory dysfunction
Chronic atrial fibrillation on Eliquis
Hypertension/hyperlipidemia
Diabetes type 2.�
Heart failure-diastolic and systolic
Third-degree heart block status post PPM
EARL on CPAP 9 cm.�
Chronic constipation.
Cholelithiasis
Right hip surgery.� Spinal stimulator.� Laminectomy.� Right shakir femur.� Tonsillectomy
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
Plan/recommendations
At this time, patient remains critically ill, ventilator dependent
Marginal blood pressure noted, not requiring pressors
Lactate improved
Presented with increased lethargy, upper respiratory symptoms, questionable hypoxia.
Became progressively lethargic despite noninvasive ventilation and pCO2 level of 48 which is likely compensated
Patient was intubated at the bedside in the ED
Follow-up chest x-ray revealed questionable left lower lobe pneumonia per my review, appropriate ET tube
Moving forward
Continue with current management including antibiotics for pneumonia. Patient resides at custodial
Remains on cefepime/vancomycin. Discontinue vancomycin if MRSA negative
Follow cultures
Hemoptysis noted, on Eliquis
Follow clinically
Currently on volume-cycled ventilation
AC 14/500/5/40%
Plateau pressure 16
ABG 7.50/31/119
Avoid overventilation, transition to ASV 80%
ABG in the a.m.
No plans for weaning/extubation today
Follow electrolytes
Start tube feeds
Head CT without acute findings
Increased lethargy/obtundation likely secondary to sepsis/left lower lobe pneumonia
This is confirmed on CT imaging
Less likely thromboembolic disease, remains on Eliquis for atrial fibrillation
Reviewed with pharmacy, critical care nursing, respiratory care
TCCT 31 min
Subjective Dataa
Subjective Data
Date of Service:
Date of Service: November 28, 2023
Subjective:
Patient remains critically ill, on mechanical ventilation. Mild to moderate secretions through the night noted, bloody at times. Patient awakens with sedation vacation, moves all extremities. Marginal blood pressure noted. Urine output adequate
Objective Data
Data Reviewed
Vital Signs / I&O / Oxygen:
Vital Signs
Temp Pulse Resp BP Pulse Ox
96.8 F L 50 14 109/45 96
11/28/23 03:05 11/28/23 07:00 11/28/23 07:00 11/28/23 07:00 11/28/23 06:45
Intake and Output
11/27/23 11/28/23 11/29/23
06:59 06:59 06:59
Intake Total 1093.2 / 1093.2
Output Total 1300 / 1300
Balance -206.8 / -206.8
SaO2 [A/C] 97
SaO2 96
Nasal Cannula flow liters per 4
minute
Physical Exam
General: Comfortable and Other (Large neck)
HEENT: Normocephalic and Anicteric
Cardiovascular: S1-S2, Regular Rhythm, Murmur (n), Rub (n) and Peripheral Edema (tr)
Respiratory: Wheeze (n), Crackles (n), Rhonchi (n), ET Tube and Other (Decreased breath sounds)
GI: Soft, Non Distended and Other (OG tube)
Neurology: Lethargic (Sedated but moves all extremities during sedation vacation)
Skin: Cyanosis (n), Jaundice (n) and Rash (n)
Labs/Micro/Reports
Lab Data
11/28/23 03:29
11/28/23 03:29
Laboratory Results
11/27/23 11/27/23 11/27/23
15:15 16:22 18:05
PT 21.9 H
INR 1.89
APTT 42.5 H
pH 7.39 Cancelled
pCO2 48 Cancelled
pO2 154 H Cancelled
HCO3 29.1 H Cancelled
O2 Delivery Level Cancelled
11/28/23
04:05
PT
INR
APTT
pH 7.50 H
pCO2 31 L
pO2 119 H
HCO3 24.2
O2 Delivery Level 40%
Microbiology
11/27/23 19:42 Nose Nasal Screen MRSA (PCR) - Final
MRSA not detected - performed by PCR methodology.
11/27/23 12:23 Nasal Swab Influenza Types A & B (RAJ) - Final
Negative for Influenza A & B, NAAT
Negative results must be combined with clinical observations
and patient history.
Nucleic Acid Amplification test (NAAT)performed on the
[employer] platform.
[2023-11-28] MEDS: PROTONIX IV 40 MG IV (07:28)
[2023-11-28] MEDS: REFRESH EYE DROPS (PF) 2 DROPS BOTH EYES ×2 (07:29→20:08)
[2023-11-28] MEDS: BUSPAR 10 MG TUBE ×2 (07:29→20:08)
[2023-11-28] MEDS: NSS (PRESERVATIVE FREE) 10 ML IV (07:29)
[2023-11-28] MEDS: NEURONTIN 300 MG TUBE ×2 (07:29→20:09)
[2023-11-28] MEDS: ELIQUIS 5 MG TUBE ×2 (07:29→20:08)
[2023-11-28] MEDS: LEXAPRO 20 MG TUBE (07:29)
[2023-11-28] MEDS: COLACE LIQUID 100 MG TUBE ×2 (07:30→20:08)
[2023-11-28] MEDS: MIRALAX 17 GRAMS TUBE (07:30)
[2023-11-28] MEDS: ADVAIR HFA 45/21 MCG INHALER 4 PUFF INH ×2 (07:38→20:03)
--- NOTE | 2023-11-28 08:37 | PTCARENOTE ---
Addendum entered by Courtney Botello RN 11/28/23 09:18:
update to patient sister on phone. she was very tearful, states she will not be coming in to visit as 'I cannot see him like that'
Original Note:
report received, assessments per work list. sedated on propofol and fentanyl infusions. diprivan decreased per RASS. no nonverbal pain cues. monitor av pace, ett#8@24. settings adjustment to ASV by RT. ett suctions for thick bloody sputum. coarse
breath sounds anteriorly. diminished posteriorly. OGT placement verified by air auscultation, to LIS draining yellow brown fluid. clamped after medications. abdomen soft. hypoactive bowel sounds. silverman in place draining yellow urine. wrist
restraints maintained for patient safety
[2023-11-28 09:27] LABS: Glycohemoglobin (HgbA1c) 6.5 % (4.0-5.6)
[2023-11-28] MEDS: SUBLIMAZE 50 MCG IV ×3 (09:45→17:36)
--- NOTE | 2023-11-28 11:28 | W.PN.HOSP.TC ---
Today's Communication/Plan
-
see bold
Assessment / Plan
Assessment / Plan
Gen: NAD, intubated/sedated, NCAT
CV: RRR, +S1/S2, no m/r/g.
Resp: CTAB, no rales, wheezes, or rhonchi.
Abd: +BS, soft, NT, ND
Skin: No rashes.
Neuro: sedated
Psych: sedated
11/27/23 19:42 Nose Nasal Screen MRSA (PCR) - Final
MRSA not detected - performed by PCR methodology.
11/27/23 12:23 Nasal Swab Influenza Types A & B (RAJ) - Final
Negative for Influenza A & B, NAAT
Negative results must be combined with clinical observations
and patient history.
Nucleic Acid Amplification test (NAAT)performed on the
[employer] platform.
CXR 11/28/23: Low lung volumes with moderate elevation of the right hemidiaphragm. No focal airspace disease. No pleural effusions.
CT chest: Parenchymal lung opacities within the left lung as described, most likely representing pneumonia. There may also be a component of atelectasis. Radiographic follow-up is advised to assess for clearing and exclude underlying neoplasia.
Patchy groundglass pneumonitis in the right upper lobe, which is likely patchy pneumonia. Confluent and band shaped parenchymal opacity within the right lower lung, most likely atelectasis, although a component of pneumonia in this region is also
possible. Possible trace amount of posterior left pleural fluid. No significant right pleural effusion. Right adrenal gland mass, stable from CT of the abdomen and pelvis of June 23, 2023, and most likely an adenoma.
Acute hypoxemic and hypercapnic respiratory failure due to L-sided PNA:
-Currently on ASV, had sedation vacation today as per discussion with nursing
-sedation with propofol/fentanyl
-Flu/COVID NEG
-Currently on Vanco/Cefepime. With MRSA screen NEG can likely stop Vanco. Procal noted but continue abx for now.
-pulm/CC following
Hypotension:
-h/o essential HTN, home antihypertensives are on hold
NAOMI on CKD stage IIIb:
-Cr improving with IVFs
Chronic HFpEF:
-reasonable to update echo
Paroxysmal A-fib: cont Eliquis
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
DM2 with diabetic neuropathy: a1c 6.5%, Start Lantus 12U, cont SSI/accuchecks
Asthma and COPD: cont Advair
EARL: uses BIPAP HS
Fall with left retroperitoneal hematoma in June 2023
h/o back pain s/p spinal stimulator, laminectomies L4-L5
Chronic constipation: Cont Miralax
Depression: Cont Buspar/Lexapro
Obesity due to excess calories: Affects all aspects of care, encourage weight loss
Discussed with Dr. Dejesus.
FULL/Eliquis
Total critical care time spent = 35 min
Anticipated Discharge: > 48 hours
Subjective/Interval History
-
Date of Service: November 28, 2023
Objective Data
-
Labs:
Laboratory Results
11/28/23 11/28/23
03:29 04:05
WBC 9.0
Hgb 10.8 L
Hct 30.5 L
Plt Count 145
HCO3 24.2
Sodium 139
Potassium 3.6
Chloride 106
Carbon Dioxide 24
BUN 48 H
Creatinine 1.7 H
Glucose 254 H
Calcium 8.6
Total Bilirubin 0.8
AST 14 L
ALT 11
Alkaline Phosphatase 68
Vital Signs:
Vital Signs
Temp Pulse Resp BP Pulse Ox
97.1 F 51 12 113/49 97
11/28/23 08:00 11/28/23 11:15 11/28/23 11:15 11/28/23 10:00 11/28/23 11:15
I&O
11/27/23 11/28/23 11/29/23
06:59 06:59 06:59
Intake Total 1093.2 / 1188.7 918.0 / 918.0
Output Total 1300 / 1300 245 / 245
Balance -206.8 / -111.3 673.0 / 673.0
[2023-11-28] MEDS: LR 1000 IV ×2 (11:30→20:03)
[2023-11-28 11:39] LABS: Glucose - Point of Care 223 mg/dl (70-99)
--- NOTE | 2023-11-28 11:49 | PTCARENOTE ---
sedation vacation per work list documentation. patient followed simple commands, moved arms and legs with strength, but became agitated, attempting to pull out ETT, biting and tonguing tube. unable to redirect. increased nonverbal pain cues. prn
dose fentanyl given. Diprivan resumed per work list. reassessed. continues to suction for thick bloody sputum. repositioned. reviewed AccuCheck results with ICU pharmacist. wrist restraints maintained for patient safety
--- NOTE | 2023-11-28 12:52 | CM ---
CM following re: discharge planning.
Discussed in Rounds, reviewed pt's chart, met with pt and spoke to pt's sister Kyra over the phone. per Rounds meeting, pt is intubated in ED yesterday 11/27/2023 due to Acute respiratory failure, remains intubated, continue supportive care.
CM spoke to pt's sister Kyra and she confirmed that pt is a longterm care resident at [facility], uses a walker during therapy sessions and mostly uses a wheelchair.
CM spoke to [facility] liaison and she confirmed that pt is a [place] supervisor care resident, on Medicaid 15 day bed hold and pt will be accepted back when medically stable. Per [facility] liaison, an auth will require if pt needs skilled
services. Per liaison, an auth can be initiated if skilled services indicated and pt will be accepted with pending auth number.
D/C plan: return back to [facility] when medically stable.
CM will follow with discharge plan updates as hospitalization progresses
--- NOTE | 2023-11-28 13:44 | PTCARENOTE ---
tube feeds initiated as per orders
--- NOTE | 2023-11-28 15:46 | PTCARENOTE ---
Addendum entered by Courtney Botello RN 11/28/23 16:20:
Security Professional updated with decrease in urine output
Original Note:
patient reassessed. fentanyl bolus given for increased nonverbal pain cues. propofol adjustment per RASS. hypothermic, radiation engineer updated. Dmitry hugger applied. wrist restraints maintained for patient safety
[2023-11-28 17:30] LABS: Glucose - Point of Care 219 mg/dl (70-99)
--- NOTE | 2023-11-28 17:48 | PTCARENOTE ---
temp@goal,diprivan per work list. medicated with fentanyl for nonverbal pain cues
--- NOTE | 2023-11-28 20:00 | PTCARENOTE ---
Resumed care of pt laying in bed intubated, sedated on vent. Pt opens eyes to voice and tactile stimulation. Pt able to nod head, and follow simple commands. HR in the 50's AV paced on the monitor. POX 98% with #8.0 ETT to 24cm to right lip on
current vent settings ASV 80%, Peep 5, FIO2 40%. Lungs dec, course anterior. Pt suctioned for mod thick blood tinged secretions, clear secretions orally. OGT in place infusing Osmolite 1.2 @10ml/hr 25ml.flush. 110ml residual noted at this time, will
monitor. + bowel, round obese abd. Temp sensing Lewis in place draining yellow urine. Face flushed. Skin intact. + 1 generalized anasarca. Palpable peripheral pulses present. Right AC int infusing Fentanyl gtt @25mcg/hr, Propofol @20mcg/kg/hr. Left
hand Int infusing LR @100ml/hr. B/L wrist restraints in place per pt safety. Pt repositioned. No issues to report at this time. Will continue to monitor.
[2023-11-28] MEDS: LIPITOR 10 MG TUBE (22:58)
[2023-11-28] MEDS: LANTUS 0.119999999999999996 UNITS SC (23:00)
[2023-11-28] MEDS: NOVOLOG FLEXPEN-MODERATE RESISTANCE 1 UNITS SC (23:01)
[2023-11-28 23:11] LABS: Glucose - Point of Care 153 mg/dl (70-99)
[2023-11-29] VITALS (28 sets, daily range): BP systolic 96–175; BP diastolic 45–83; BMI 35.1
--- NOTE | 2023-11-29 00:30 | PTCARENOTE ---
Urine output dropping off. Bp dropping. Waqar BOYKIN notified. Orders obtained, see MAR. No other changes in assessment noted at this time. Will continue to monitor.
[2023-11-29] MEDS: NSS 1000 IV (01:02)
[2023-11-29] MEDS: DIPRIVAN 100 IV ×3 (01:56→17:37)
[2023-11-29] MEDS: MAXIPIME 2000 MG IV ×2 (03:18→15:50)
[2023-11-29] MEDS: STERILE WATER FOR INJECTION 10 ML IV ×2 (03:18→15:51)
[2023-11-29 03:59] LABS: B.E. 1.2 mmol/L; HCO3 24.9 mmol/L (21-28); O2 Saturation % 98.4 % (94-98); PCO2 35 mmHg (35-48); PO2 107 mmHg (83-108); pH 7.46 (7.35-7.45)
--- NOTE | 2023-11-29 04:00 | PTCARENOTE ---
BP now improved. Urine output has picked up. Complete bed bath provided. Pt continues to follow commands, nods head, denies pain. No other changes in assessment noted at this time. Will continue to monitor.
[2023-11-29 04:01] LABS: O2 Therapy ASV 80%/ 40%
[2023-11-29 04:40] LABS: % Basophils 0.5 % (0-2); % Eosinophils 0.7 % (0-6); % Immature Granulocytes 1.6 % (0-0.5); % Lymphocytes 18.5 % (20.5-51.1); % Monocytes 6.3 % (1.7-9.3); % Neutrophils 72.4 % (42.2-75.2); Absolute Basophils 0.1 10^3/uL (0-0.2); Absolute Eosinophils 0.1 10^3/uL (0-0.7); Absolute Immature Granulocytes 0.2 10^3/uL (0-0.05); Absolute Monocytes 0.7 10^3/uL (0.1-0.6); Absolute Neutrophils 7.8 10^3/uL (1.4-6.5); Hematocrit 28.4 % (39.0-52.0); Hemoglobin 9.8 g/dL (13.0-18.0); Mean Corp Hgb Conc. 34.5 g/dL (33.0-37.0); Mean Corpuscular Volume 89.9 fL (80.0-94.0); Mean Platelet Volume 13.2 fL (7.4-10.4); Nucleated Red Blood Cells % 0 % (-); Platelet Count 151 10^3/uL (130-400); Red Blood Cell Count 3.16 10^6/uL (4.70-6.10); White Blood Cell Count 10.8 10^3/uL (4.8-10.8)
[2023-11-29 05:01] LABS: ALT (SGPT) 10 U/L (0-50); AST (SGOT) 12 U/L (17-59); Albumin 2.6 g/dl (3.5-5.0); Alkaline Phosphatase 58 U/L (38-126); Blood Urea Nitrogen 47 mg/dl (9-20); Carbon Dioxide 24 mmol/L (22-30); Chloride 111 mmol/L (98-107); Estimated Creatinine Clearance 54 ml/min; Glucose 128 mg/dl (70-99); Potassium 3.7 mmol/L (3.5-5.1); Sodium 139 mmol/L (135-145); Total Bilirubin 0.5 mg/dl (0.2-1.3); Total Protein 5.6 g/dl (6.3-8.2); eGFR 48.25
[2023-11-29] MEDS: NOVOLOG FLEXPEN-MODERATE RESISTANCE SC ×4 (05:44→23:04)
[2023-11-29] MEDS: LR 1000 IV ×2 (05:44→15:51)
[2023-11-29 05:56] LABS: Glucose - Point of Care 131 mg/dl (70-99)
--- NOTE | 2023-11-29 07:11 | W.PN.INTV ---
Today's Communication / Plan
Recommendations
CPAP intermittently throughout the day
Continue antibiotics
Continue IV fluids, follow urine output
Follow cultures
Rest on ASV overnight
Chest x-ray, ABG in a.m.
Assessment
-
73-year-old male with history of hypertension, atrial fibrillation on anticoagulation, asthma, sleep apnea on CPAP therapy group home resident who presents with URI symptoms for few days. Patient was also noted to be hypoxic, lethargic,
progressive lethargy despite BiPAP therapy. Patient was intubated in the ER. We are asked to help from critical care standpoint 11/27/2023
Acute respiratory failure
Intubated in ED, 11/27/2023
Hypercapnia suspected
Leukocytosis
Left lower lobe pneumonia
Intermittent hemoptysis
Renal insufficiency, creatinine 1.9
CKD
Hyperglycemia
Conditions present prior to admission
History of Retroperitoneal hematoma June 2023
Hemorrhagic shock
Right adrenal mass, stable compared to June 2023
Suspected adenoma per imaging
Recurrent falls/ambulatory dysfunction
Chronic atrial fibrillation on Eliquis
Hypertension/hyperlipidemia
Diabetes type 2.�
Heart failure-diastolic and systolic
Third-degree heart block status post PPM
EARL on CPAP 9 cm.�
Chronic constipation.
Cholelithiasis
Right hip surgery.� Spinal stimulator.� Laminectomy.� Right shakir femur.� Tonsillectomy
[facility]ail resident
Plan/recommendations
At this time, patient remains critically ill, ventilator dependent
Marginal blood pressure noted, Improved
Urine output improved, continues with IV fluids
Lactate improved
Presented with increased lethargy, upper respiratory symptoms, questionable hypoxia.
Became progressively lethargic despite noninvasive ventilation and pCO2 level of 48 which is likely compensated
Patient was intubated at the bedside in the ED
Tolerating spontaneous breathing
Moving forward
Continue with current management including antibiotics for pneumonia. Patient resides at group home
Remains on cefepime
Follow cultures, negative to date
Hemoptysis noted, on Eliquis. Bloody secretions noted with suction
Follow clinically
Repeat chest x-ray in a.m.
Currently on volume-cycled ventilation
ASV 80% / 5/40%
ABG 7.46/35/107
Intermittent CPAP throughout the day but no plans for extubation given significant secretions
Chest x-ray in a.m., rest on ASV 80%
Follow electrolytes
Continue tube feeds
Head CT without acute findings
Increased lethargy/obtundation likely secondary to sepsis/left lower lobe pneumonia
This is confirmed on CT imaging
Less likely thromboembolic disease, remains on Eliquis for atrial fibrillation
Reviewed with critical care nursing, respiratory care
TCCT 31 min
Subjective Dataa
Subjective Data
Date of Service:
Date of Service: November 29, 2023
Subjective:
Patient remains intubated. Significant secretions noted. Tolerating spontaneous breathing. Remains on ASV mode
Objective Data
Data Reviewed
Vital Signs / I&O / Oxygen:
Vital Signs
Temp Pulse Resp BP Pulse Ox
97.2 F 50 15 166/83 96
11/29/23 04:00 11/29/23 06:00 11/29/23 06:00 11/29/23 06:00 11/29/23 06:00
Intake and Output
11/28/23 11/29/23 11/30/23
06:59 06:59 06:59
Intake Total 1093.2 / 1188.7 4927.6 / 4927.6
Output Total 1300 / 1300 1240 / 1240
Balance -206.8 / -111.3 3687.6 / 3687.6
SaO2 [ASV] 98
SaO2 [A/C] 97
SaO2 96
Nasal Cannula flow liters per 4
minute
Physical Exam
General: Comfortable and Other (Large neck)
HEENT: Normocephalic and Anicteric
Cardiovascular: S1-S2, Regular Rhythm, Murmur (n), Rub (n) and Peripheral Edema (tr)
Respiratory: Wheeze (n), Crackles (n), Rhonchi (n), ET Tube and Other (Decreased breath sounds)
GI: Soft, Non Distended and Other (OG tube)
Neurology: Lethargic (Sedated but moves all extremities during sedation vacation)
Skin: Cyanosis (n), Jaundice (n) and Rash (n)
Labs/Micro/Reports
Lab Data
11/29/23 04:08
11/29/23 04:08
Laboratory Results
11/29/23
03:54
pH 7.46 H
pCO2 35
pO2 107
HCO3 24.9
O2 Delivery Level Asv 80%/ 40%
Microbiology
11/27/23 13:56 Blood/Venous Blood Culture - Preliminary
No Growth in 24 hours- Final report to follow
11/27/23 12:23 Blood/Venous Blood Culture - Preliminary
No Growth in 24 hours- Final report to follow
11/27/23 19:42 Endotracheal Respiratory Culture - Preliminary
NO GROWTH
11/27/23 19:42 Endotracheal Gram Stain - Preliminary
11/27/23 19:42 Nose Nasal Screen MRSA (PCR) - Final
MRSA not detected - performed by PCR methodology.
11/27/23 12:23 Nasal Swab Influenza Types A & B (RAJ) - Final
Negative for Influenza A & B, NAAT
Negative results must be combined with clinical observations
and patient history.
Nucleic Acid Amplification test (NAAT)performed on the
[employer] platform.
[2023-11-29] MEDS: ADVAIR HFA 45/21 MCG INHALER 4 PUFF INH ×2 (07:53→17:53)
[2023-11-29] MEDS: LEXAPRO 20 MG TUBE (07:56)
[2023-11-29] MEDS: BUSPAR 10 MG TUBE ×2 (07:56→19:51)
[2023-11-29] MEDS: NEURONTIN 300 MG TUBE ×2 (07:56→19:50)
[2023-11-29] MEDS: COLACE LIQUID 100 MG TUBE ×2 (07:56→19:50)
[2023-11-29] MEDS: ELIQUIS 5 MG TUBE ×2 (07:56→19:50)
[2023-11-29] MEDS: MIRALAX 17 GRAMS TUBE (07:56)
[2023-11-29] MEDS: PROTONIX IV 40 MG IV (07:56)
[2023-11-29] MEDS: REFRESH EYE DROPS (PF) 2 DROPS BOTH EYES ×2 (07:56→19:51)
[2023-11-29] MEDS: NSS (PRESERVATIVE FREE) 10 ML IV (07:57)
--- NOTE | 2023-11-29 08:19 | W.PN.HOSP.TC ---
Today's Communication/Plan
-
see bold
Assessment / Plan
Assessment / Plan
Gen: NAD, intubated/sedated, NCAT
CV: zafar, reg rhythm, +S1/S2, no m/r/g.
Resp: CTAB anteriorly, no rales, wheezes, or rhonchi.
Abd: remains +BS, soft, NT, ND
Skin: No rashes.
Neuro: sedated
Psych: sedated
11/27/23 13:56 Blood/Venous Blood Culture - Preliminary
No Growth in 24 hours- Final report to follow
11/27/23 12:23 Blood/Venous Blood Culture - Preliminary
No Growth in 24 hours- Final report to follow
11/27/23 19:42 Endotracheal Respiratory Culture - Preliminary
NO GROWTH
11/27/23 19:42 Endotracheal Gram Stain - Preliminary
11/27/23 19:42 Nose Nasal Screen MRSA (PCR) - Final
MRSA not detected - performed by PCR methodology.
11/27/23 12:23 Nasal Swab Influenza Types A & B (RAJ) - Final
Negative for Influenza A & B, NAAT
Negative results must be combined with clinical observations
and patient history.
Nucleic Acid Amplification test (NAAT)performed on the
[employer] platform.
CXR 11/28/23: Low lung volumes with moderate elevation of the right hemidiaphragm. No focal airspace disease. No pleural effusions.
CT chest: Parenchymal lung opacities within the left lung as described, most likely representing pneumonia. There may also be a component of atelectasis. Radiographic follow-up is advised to assess for clearing and exclude underlying neoplasia.
Patchy groundglass pneumonitis in the right upper lobe, which is likely patchy pneumonia. Confluent and band shaped parenchymal opacity within the right lower lung, most likely atelectasis, although a component of pneumonia in this region is also
possible. Possible trace amount of posterior left pleural fluid. No significant right pleural effusion. Right adrenal gland mass, stable from CT of the abdomen and pelvis of June 23, 2023, and most likely an adenoma.
Echo: Left ventricle is mildly dilated mild concentric remodeling and low normal left
�ventricular systolic function. Mild global hypokinesis. Left ventricular
�ejection fraction is 50%. Normal diastolic function.
�Normal right ventricular size and function. Pacer wire seen in right ventricle.
�Normal atria.
�Aortic sclerosis without stenosis.
�No other significant valve abnormalities.
�The IVC is dilated and does not collapse due to mechanical ventilation.
�No evidence of pulmonary hypertension.
�
�Compared to prior study of 09/06/2022, the left ventricle is now mildly dilated
�with global hypokinesis.� The ejection fraction has fallen from 55-60% to 50%.
Acute hypoxemic and hypercapnic respiratory failure due to L-sided PNA:
-Currently on ASV, had sedation vacation today as per discussion with nursing
-sedation with propofol
-Flu/COVID NEG
-Cont Cefepime. Procal noted but continue abx for now.
-pulm/CC following
Hypotension:
-h/o essential HTN, home antihypertensives are on hold
-BP has improved.
-restart Coreg
NAOMI on CKD stage IIIb:
-Cr improving with IVFs
Chronic HFpEF:
-Echo 11/28/23 as above, notable for for mildly dilated LV with global hypokinesis and worsening EF to 50% compared to prior
Paroxysmal A-fib: cont Eliquis
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
DM2 with diabetic neuropathy: a1c 6.5%, cont Lantus/SSI/accuchecks
Asthma and COPD: cont Advair
EARL: uses BIPAP HS
Fall with left retroperitoneal hematoma in June 2023
h/o back pain s/p spinal stimulator, laminectomies L4-L5
Chronic constipation: Cont Miralax
Depression: Cont Buspar/Lexapro
Obesity due to excess calories: Affects all aspects of care, encourage weight loss
FULL/Eliquis
Total critical care time spent = 31 min
Anticipated Discharge: > 48 hours
Subjective/Interval History
-
Date of Service: November 29, 2023
Intubated/sedated.
Objective Data
-
Labs:
Laboratory Results
11/29/23 11/29/23
03:54 04:08
WBC 10.8
Hgb 9.8 L
Hct 28.4 L
Plt Count 151
HCO3 24.9
Sodium 139
Potassium 3.7
Chloride 111 H
Carbon Dioxide 24
BUN 47 H
Creatinine 1.5 H
Glucose 128 H
Calcium 8.0 L
Total Bilirubin 0.5
AST 12 L
ALT 10
Alkaline Phosphatase 58
Vital Signs:
Vital Signs
Temp Pulse Resp BP Pulse Ox
97.0 F 65 11 166/83 98
11/29/23 07:38 11/29/23 08:09 11/29/23 08:09 11/29/23 06:00 11/29/23 08:09
I&O
11/28/23 11/29/23 11/30/23
06:59 06:59 06:59
Intake Total 1093.2 / 1188.7 4927.6 / 4927.6
Output Total 1300 / 1300 1240 / 1240
Balance -206.8 / -111.3 3687.6 / 3687.6
[2023-11-29] MEDS: COREG 6.25 MG PO ×2 (09:00→19:50)
--- NOTE | 2023-11-29 09:20 | PTCARENOTE ---
Rec'd pt at 0700. Pt lightly sedate on vent on Propofol/Fentanyl gtts. Opens eyes to verbal stimuli, nods head appropriately to questions. Follows simple commands, SHELBY with gen weakness. Monitor AV-paced. Lungs sct coarse/dim, pox 98% on 40% fio2.
Abd large/round. +BS. Lewis draining yellow urine. 0820-sedation decreased for SBT. Pt placed on 5/5/40%. Pt's sister updated via phone this am.
[2023-11-29 12:03] LABS: Glucose - Point of Care 130 mg/dl (70-99)
--- NOTE | 2023-11-29 12:41 | PTCARENOTE ---
Pt with increased agitation, banging on siderails and grabbing at nursing staff. TV dropping into 200's. Pt placed back on ASV setting, sedation resumed. Pt nodding appropriately to questions and updated on current situation.
[2023-11-29] MEDS: SUBLIMAZE 100 IV (15:51)
[2023-11-29 18:10] LABS: Glucose - Point of Care 124 mg/dl (70-99)
--- NOTE | 2023-11-29 19:55 | PTCARENOTE ---
Received pt. at 1900. Pt. currently in bed. Intubated and sedated. Arousable. Nods appropriately and following simple commands. Heart rhythm AV paced. BP hypertensive, scheduled dose of Coreg given. Ventilator settings verified. Lungs sound coarse
and diminished. OG tube in place, tube feeds running per order. Lewis catheter in place, draining without urine. Skin as documented. Discussed plan of care. Vital signs stable at this time.
[2023-11-29] MEDS: LIPITOR 10 MG TUBE (21:33)
[2023-11-29] MEDS: LANTUS 0.119999999999999996 UNITS SC (23:08)
[2023-11-29 23:16] LABS: Glucose - Point of Care 103 mg/dl (70-99)
[2023-11-30] VITALS (25 sets, daily range): BP systolic 88–152; BP diastolic 39–92; BMI 35.9
--- NOTE | 2023-11-30 00:07 | PTCARENOTE ---
Pt. assessment unchanged. Appears comfortable at this time. Ventilator settings are unchanged. Hygiene care performed. Vital signs stable at this time.
[2023-11-30] MEDS: DIPRIVAN 100 IV ×2 (01:08→11:42)
[2023-11-30] MEDS: LR 1000 IV ×3 (01:12→20:31)
[2023-11-30] MEDS: MAXIPIME 2000 MG IV ×2 (04:09→16:19)
[2023-11-30] MEDS: STERILE WATER FOR INJECTION 10 ML IV ×2 (04:09→16:19)
--- NOTE | 2023-11-30 04:19 | PTCARENOTE ---
Pt. assessment remains unchanged. AM labs drawn. Vital signs stable at this time.
[2023-11-30 04:24] LABS: % Eosinophils 2.3 % (0-6); % Lymphocytes 30.7 % (20.5-51.1); % Monocytes 7.5 % (1.7-9.3); % Neutrophils 55.5 % (42.2-75.2); Absolute Basophils 0.1 10^3/uL (0-0.2); Absolute Eosinophils 0.2 10^3/uL (0-0.7); Absolute Immature Granulocytes 0.2 10^3/uL (0-0.05); Absolute Lymphocytes 2.5 10^3/uL (1.2-3.4); Absolute Monocytes 0.6 10^3/uL (0.1-0.6); Absolute Neutrophils 4.4 10^3/uL (1.4-6.5); Hematocrit 28.5 % (39.0-52.0); Hemoglobin 9.9 g/dL (13.0-18.0); Mean Corp Hgb Conc. 34.7 g/dL (33.0-37.0); Mean Corpuscular Hgb 30.6 pg (27.0-31.0); Mean Platelet Volume 12.7 fL (7.4-10.4); Nucleated Red Blood Cells % 0 % (-); Platelet Count 147 10^3/uL (130-400); Red Blood Cell Count 3.24 10^6/uL (4.70-6.10); Red Cell Dist. Width 13.8 % (11.5-14.5)
[2023-11-30 04:29] LABS: HCO3 25.1 mmol/L (21-28); O2 Saturation % 98.5 % (94-98); PCO2 33 mmHg (35-48); PO2 101 mmHg (83-108); pH 7.49 (7.35-7.45)
[2023-11-30 05:16] LABS: ALT (SGPT) < 10 U/L (0-50); AST (SGOT) 19 U/L (17-59); Albumin 2.3 g/dl (3.5-5.0); Alkaline Phosphatase 35 U/L (38-126); Blood Urea Nitrogen 45 mg/dl (9-20); Calcium 8.3 mg/dl (8.4-10.2); Carbon Dioxide 25 mmol/L (22-30); Chloride 108 mmol/L (98-107); Estimated Creatinine Clearance 68 ml/min; Glucose 108 mg/dl (70-99); Potassium 3.9 mmol/L (3.5-5.1); Sodium 137 mmol/L (135-145); Total Bilirubin 0.7 mg/dl (0.2-1.3); Total Protein 5.6 g/dl (6.3-8.2); Triglycerides 114 mg/dl (10-149); eGFR > 60.00
[2023-11-30] MEDS: NOVOLOG FLEXPEN-MODERATE RESISTANCE SC ×4 (05:26→23:25)
--- NOTE | 2023-11-30 07:17 | W.PN.INTV ---
Today's Communication / Plan
Recommendations
CPAP wean throughout the day
Continue IV fluids. Creatinine improved
Still with significant secretions
Continue antibiotics
Possible SBT in a.m.
Assessment
-
73-year-old male with history of hypertension, atrial fibrillation on anticoagulation, asthma, sleep apnea on CPAP therapy [facility] who presents with URI symptoms for few days. Patient was also noted to be hypoxic, lethargic,
progressive lethargy despite BiPAP therapy. Patient was intubated in the ER. We are asked to help from critical care standpoint 11/27/2023
Acute respiratory failure
Intubated in ED, 11/27/2023
Hypercapnia suspected
Leukocytosis
Left lower lobe pneumonia
Intermittent hemoptysis
Renal insufficiency, creatinine 1.9
CKD
Hyperglycemia
Anemia
Conditions present prior to admission
History of Retroperitoneal hematoma June 2023
Hemorrhagic shock
Right adrenal mass, stable compared to June 2023
Suspected adenoma per imaging
Recurrent falls/ambulatory dysfunction
Chronic atrial fibrillation on Eliquis
Hypertension/hyperlipidemia
Diabetes type 2.�
Heart failure-diastolic and systolic
Third-degree heart block status post PPM
EARL on CPAP 9 cm.�
Chronic constipation.
Cholelithiasis
Right hip surgery.� Spinal stimulator.� Laminectomy.� Right shakir femur.� Tonsillectomy
intermediate resident
Plan/recommendations
At this time, patient remains critically ill, ventilator dependent
Tolerated CPAP for few hours on 11/29, then became agitated, increase secretions
Marginal blood pressure noted, Improved
Urine output improved, creatinine improved from admission 1.9, down to 1.2
Lactate improved
Presented with increased lethargy, upper respiratory symptoms, questionable hypoxia.
Became progressively lethargic despite noninvasive ventilation and pCO2 level of 48 which is likely compensated
Still with secretions
Moving forward
Continue with current management including antibiotics for pneumonia. [facility]
Remains on cefepime
Follow cultures, negative to date
Hemoptysis noted, on Eliquis. Bloody secretions noted with suction
Chest x-ray with poor lung volumes, left lower lobe pneumonia per my review
Currently on volume-cycled ventilation
Transition to CPAP throughout the day, 8
Rest on ASV 80%/5/40%
ABG 7. 49/33/101
Avoid overventilation
Possible SBT in the a.m.
Follow electrolytes
Continue tube feeds
OG tube in place
Head CT without acute findings
Increased lethargy/obtundation likely secondary to sepsis/left lower lobe pneumonia
This is confirmed on CT imaging
Patient does move all extremities, following commands with sedation vacation
Less likely thromboembolic disease, remains on Eliquis for atrial fibrillation
Reviewed with critical care nursing, respiratory care
TCCT 31 min
Subjective Dataa
Subjective Data
Date of Service:
Date of Service: November 30, 2023
Subjective:
Patient remains critically ill, ventilator dependent. Still with significant secretions, occasionally bloody. Tolerate CPAP for few hours yesterday, transition back to ASV due to rapid shallow breathing, agitation. Patient does open eyes and
follow commands
Objective Data
Data Reviewed
Vital Signs / I&O / Oxygen:
Vital Signs
Temp Pulse Resp BP Pulse Ox
97.9 F 50 11 108/60 99
11/30/23 04:00 11/30/23 06:30 11/30/23 06:30 11/30/23 06:00 11/30/23 06:30
Intake and Output
11/29/23 11/30/23 12/01/23
06:59 06:59 06:59
Intake Total 4927.6 / 5078.3 3547.9 / 3547.9
Output Total 1240 / 1320 1960 / 1960
Balance 3687.6 / 3758.3 1587.9 / 1587.9
SaO2 [CPAP/PSV] 99
SaO2 [ASV] 98
SaO2 [A/C] 97
SaO2 99
Nasal Cannula flow liters per 4
minute
Physical Exam
General: Comfortable and Other (Large neck)
HEENT: Normocephalic and Anicteric
Cardiovascular: S1-S2, Regular Rhythm, Murmur (n), Rub (n) and Peripheral Edema (tr)
Respiratory: Wheeze (n), Crackles (n), Rhonchi (n), ET Tube and Other (Decreased breath sounds)
GI: Soft, Non Distended (Obese), Non Tender and Other (OG tube)
Neurology: No Motor Deficits (Moves all extremities) and Lethargic (Follows commands, opens eyes, nods appropriately)
Skin: Cyanosis (n), Jaundice (n) and Rash (n)
Labs/Micro/Reports
Lab Data
11/30/23 03:55
11/30/23 03:55
Laboratory Results
11/30/23
04:17
pH 7.49 H
pCO2 33 L
pO2 101
HCO3 25.1
O2 Delivery Level
Microbiology
11/27/23 13:56 Blood/Venous Blood Culture - Preliminary
No Growth in 48 hours- Final report to follow
11/27/23 19:42 Endotracheal Respiratory Culture - Preliminary
11/27/23 19:42 Endotracheal Gram Stain - Preliminary
11/27/23 12:23 Blood/Venous Blood Culture - Preliminary
No Growth in 48 hours- Final report to follow
11/27/23 19:42 Nose Nasal Screen MRSA (PCR) - Final
MRSA not detected - performed by PCR methodology.
11/27/23 12:23 Nasal Swab Influenza Types A & B (RAJ) - Final
Negative for Influenza A & B, NAAT
Negative results must be combined with clinical observations
and patient history.
Nucleic Acid Amplification test (NAAT)performed on the
[employer] platform.
[2023-11-30] MEDS: PROTONIX IV 40 MG IV (07:38)
[2023-11-30] MEDS: NSS (PRESERVATIVE FREE) 10 ML IV (07:38)
[2023-11-30] MEDS: COLACE LIQUID 100 MG TUBE ×2 (07:38→20:29)
[2023-11-30] MEDS: NEURONTIN 300 MG TUBE ×2 (07:38→20:29)
[2023-11-30] MEDS: ELIQUIS 5 MG TUBE ×2 (07:39→20:24)
[2023-11-30] MEDS: REFRESH EYE DROPS (PF) 2 DROPS BOTH EYES ×2 (07:39→20:23)
[2023-11-30] MEDS: MIRALAX 17 GRAMS TUBE (07:39)
[2023-11-30] MEDS: BUSPAR 10 MG TUBE ×2 (07:39→20:24)
[2023-11-30] MEDS: LEXAPRO 20 MG TUBE (07:39)
[2023-11-30] MEDS: COREG 6.25 MG PO ×2 (07:39→20:24)
[2023-11-30] MEDS: ADVAIR HFA 45/21 MCG INHALER 4 PUFF INH ×2 (07:54→20:41)
--- NOTE | 2023-11-30 08:14 | W.PN.HOSP.TC ---
Today's Communication/Plan
-
see bold
Assessment / Plan
Assessment / Plan
Gen: NAD, intubated/sedated but opens eyes, NCAT
Eyes: EOMI, no scleral icterus
CV: remains zafar, reg rhythm, +S1/S2, no m/r/g.
Resp: CTAB anteriorly, no rales, wheezes, or rhonchi.
Abd: remains +BS, soft, NT, ND
Skin: No rashes.
Neuro: opens eyes
Psych: sedated
11/27/23 13:56 Blood/Venous Blood Culture - Preliminary
No Growth in 48 hours- Final report to follow
11/27/23 19:42 Endotracheal Respiratory Culture - Preliminary
11/27/23 19:42 Endotracheal Gram Stain - Preliminary
11/27/23 12:23 Blood/Venous Blood Culture - Preliminary
No Growth in 48 hours- Final report to follow
11/27/23 19:42 Nose Nasal Screen MRSA (PCR) - Final
MRSA not detected - performed by PCR methodology.
11/27/23 12:23 Nasal Swab Influenza Types A & B (RAJ) - Final
Negative for Influenza A & B, NAAT
Negative results must be combined with clinical observations
and patient history.
Nucleic Acid Amplification test (NAAT)performed on the
[employer] platform.
CXR 11/28/23: Low lung volumes with moderate elevation of the right hemidiaphragm. No focal airspace disease. No pleural effusions.
CT chest: Parenchymal lung opacities within the left lung as described, most likely representing pneumonia. There may also be a component of atelectasis. Radiographic follow-up is advised to assess for clearing and exclude underlying neoplasia.
Patchy groundglass pneumonitis in the right upper lobe, which is likely patchy pneumonia. Confluent and band shaped parenchymal opacity within the right lower lung, most likely atelectasis, although a component of pneumonia in this region is also
possible. Possible trace amount of posterior left pleural fluid. No significant right pleural effusion. Right adrenal gland mass, stable from CT of the abdomen and pelvis of June 23, 2023, and most likely an adenoma.
Echo: Left ventricle is mildly dilated mild concentric remodeling and low normal left
�ventricular systolic function. Mild global hypokinesis. Left ventricular
�ejection fraction is 50%. Normal diastolic function.
�Normal right ventricular size and function. Pacer wire seen in right ventricle.
�Normal atria.
�Aortic sclerosis without stenosis.
�No other significant valve abnormalities.
�The IVC is dilated and does not collapse due to mechanical ventilation.
�No evidence of pulmonary hypertension.
�
�Compared to prior study of 09/06/2022, the left ventricle is now mildly dilated
�with global hypokinesis.� The ejection fraction has fallen from 55-60% to 50%.
Acute hypoxemic and hypercapnic respiratory failure due to L-sided PNA:
-Currently on ASV, had sedation vacation today as per discussion with nursing
-sedation with propofol
-Flu/COVID NEG
-Cont Cefepime. Procal noted but continue abx for now.
-pulm/CC following
Hypotension:
-h/o essential HTN, home antihypertensives were held on admission
-BP improved and Coreg was restarted. Cont with hold parameters (noting SBPs 80-90s on 11/30/23).
NAOIM on CKD stage IIIb:
-Cr improving with IVFs
Chronic HFpEF:
-Echo 11/28/23 as above, notable for for mildly dilated LV with global hypokinesis and worsening EF to 50% compared to prior
Paroxysmal A-fib: cont Eliquis
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
DM2 with diabetic neuropathy: a1c 6.5%, cont Lantus/SSI/accuchecks
Asthma and COPD: cont Advair
EARL: uses BIPAP HS
Fall with left retroperitoneal hematoma in June 2023
h/o back pain s/p spinal stimulator, laminectomies L4-L5
Chronic constipation: Cont Miralax
Depression: Cont Buspar/Lexapro
Obesity due to excess calories: Affects all aspects of care, encourage weight loss
RN updated
FULL/Eliquis
Total critical care time spent = 32 min
Anticipated Discharge: > 48 hours
Subjective/Interval History
-
Date of Service: November 30, 2023
Intubated, sedated but opens eyes.
Objective Data
-
Labs:
Laboratory Results
11/30/23 11/30/23
03:55 04:17
WBC 8.0
Hgb 9.9 L
Hct 28.5 L
Plt Count 147
HCO3 25.1
Sodium 137
Potassium 3.9
Chloride 108 H
Carbon Dioxide 25
BUN 45 H
Creatinine 1.2
Glucose 108 H
Calcium 8.3 L
Total Bilirubin 0.7
AST 19
ALT < 10
Alkaline Phosphatase 35 L
Vital Signs:
Vital Signs
Temp Pulse Resp BP Pulse Ox
97.9 F 76 25 152/92 98
11/30/23 07:56 11/30/23 07:40 11/30/23 07:40 11/30/23 07:40 11/30/23 07:47
I&O
11/29/23 11/30/23 12/01/23
06:59 06:59 06:59
Intake Total 4927.6 / 5078.3 3547.9 / 3547.9
Output Total 1240 / 1320 1959 / 1960
Balance 3687.6 / 3758.3 1587.9 / 1587.9
--- NOTE | 2023-11-30 09:26 | PTCARENOTE ---
Rec'd pt at 0700. Pt lightly sedate on Propofol/Fentanyl gtts on vent. Eyes are open, pt anxious and attempting to pull at ETT. Able to verbally calm pt, instructed not to pull at any tubes/wires. Reoriented pt to current situation. Pt nods head
appropriately. Monitor AV-paced 50's. Lungs dim right base, few fine rales left base. Pox 97% on 40% fio2. Pt desaturated to 86% with repositioning/turning, recovered quickly once HOB elevated. Pt suctioned for large amts thick greene, blood tinged
secretions via ETT. +BS, abd soft/nt. Tolerating tube feeds via OGT. Lewis draining yellow urine. 08-Pt placed on SBT 5/5/40%.
[2023-11-30 11:54] LABS: Glucose - Point of Care 117 mg/dl (70-99)
--- NOTE | 2023-11-30 12:53 | PTCARENOTE ---
Pt continues on SBT without issue, no changes in assessment. Pt's sister updated via phone.
--- NOTE | 2023-11-30 16:17 | PTCARENOTE ---
~1330-pt placed back on ASV setting d/t apnea ventilation
[2023-11-30 17:11] LABS: Glucose - Point of Care 108 mg/dl (70-99)
[2023-11-30] MEDS: LIPITOR 10 MG TUBE (20:23)
--- NOTE | 2023-11-30 21:13 | PTCARENOTE ---
Pt received at 19:00. Intubated and sedated on propofol and fentanyl as ordered. RASS = 0 to -1, Ox1-2. Nods head appropriately and follows simple commands. 100% AV paced, HR 50. #8 ETT @ 24cm, repositioned from R to L. Breath sounds coarse,
thick/greene/blood tinged secretions via ETT. ASV 80%, 40% FiO2, +5. OGT in place, infusing TF as ordered, no residuals. Lewis in place, clear yellow urine. Safe environment maintained, plan of care ongoing.
[2023-11-30] MEDS: LANTUS 0.119999999999999996 UNITS SC (22:36)
[2023-11-30 23:29] LABS: Glucose - Point of Care 135 mg/dl (70-99)
[2023-12-01] VITALS (30 sets, daily range): BP systolic 110–188; BP diastolic 55–92; PULSE 2–75; BMI 36.4
[2023-12-01] MEDS: DIPRIVAN 100 IV (00:19)
[2023-12-01] MEDS: STERILE WATER FOR INJECTION 10 ML IV ×2 (04:11→16:53)
[2023-12-01] MEDS: MAXIPIME 2000 MG IV ×2 (04:12→16:53)
[2023-12-01] MEDS: SUBLIMAZE 50 MCG IV (04:23)
--- NOTE | 2023-12-01 04:28 | PTCARENOTE ---
Pt agitated, CPOT = 8. Suctioned for large amount of thick greene/blood tinged secretions via ETT. PRN fentanyl given and gtt titrated as ordered.
[2023-12-01 04:31] LABS: % Basophils 0.7 % (0-2); % Eosinophils 4.2 % (0-6); % Immature Granulocytes 6.1 % (0-0.5); % Lymphocytes 23.2 % (20.5-51.1); % Monocytes 7.3 % (1.7-9.3); % Neutrophils 58.5 % (42.2-75.2); Absolute Basophils 0.1 10^3/uL (0-0.2); Absolute Eosinophils 0.3 10^3/uL (0-0.7); Absolute Immature Granulocytes 0.4 10^3/uL (0-0.05); Absolute Lymphocytes 1.7 10^3/uL (1.2-3.4); Absolute Monocytes 0.5 10^3/uL (0.1-0.6); Absolute Neutrophils 4.2 10^3/uL (1.4-6.5); Hematocrit 27.6 % (39.0-52.0); Hemoglobin 9.7 g/dL (13.0-18.0); Mean Corp Hgb Conc. 35.1 g/dL (33.0-37.0); Mean Corpuscular Hgb 31.2 pg (27.0-31.0); Mean Corpuscular Volume 88.7 fL (80.0-94.0); Mean Platelet Volume 12.6 fL (7.4-10.4); Nucleated Red Blood Cells % 0 % (-); Platelet Count 145 10^3/uL (130-400); Red Blood Cell Count 3.11 10^6/uL (4.70-6.10); Red Cell Dist. Width 13.8 % (11.5-14.5); White Blood Cell Count 7.2 10^3/uL (4.8-10.8)
[2023-12-01 04:48] LABS: ALT (SGPT) < 10 U/L (0-50); AST (SGOT) 13 U/L (17-59); Albumin 2.3 g/dl (3.5-5.0); Alkaline Phosphatase 55 U/L (38-126); Blood Urea Nitrogen 39 mg/dl (9-20); Calcium 8.2 mg/dl (8.4-10.2); Carbon Dioxide 25 mmol/L (22-30); Chloride 106 mmol/L (98-107); Estimated Creatinine Clearance 69 ml/min; Glucose 117 mg/dl (70-99); Potassium 3.7 mmol/L (3.5-5.1); Sodium 137 mmol/L (135-145); Total Bilirubin 0.7 mg/dl (0.2-1.3); Total Protein 5.3 g/dl (6.3-8.2); eGFR > 60.00
[2023-12-01] MEDS: SUBLIMAZE 100 IV (04:57)
[2023-12-01] MEDS: NOVOLOG FLEXPEN-MODERATE RESISTANCE SC ×4 (05:00→23:32)
[2023-12-01] MEDS: LR 1000 IV ×2 (06:31→16:53)
[2023-12-01] MEDS: ADVAIR HFA 45/21 MCG INHALER 4 PUFF INH (07:28)
--- NOTE | 2023-12-01 08:20 | W.PN.INTV ---
Today's Communication / Plan
Recommendations
CPAP wean throughout the day
Still with significant secretions --> start chest PT with mucomyst and DuoNebs TID
Continue antibiotics
outpatient sleep study
Assessment
-
73-year-old male with history of hypertension, atrial fibrillation on anticoagulation, asthma, sleep apnea on CPAP therapy assisted resident who presents with URI symptoms for few days. Patient was also noted to be hypoxic, lethargic,
progressive lethargy despite BiPAP therapy. Patient was intubated in the ER. We are asked to help from critical care standpoint 11/27/2023
Acute respiratory failure on mechanical ventilation
Intubated in ED, 11/27/2023
Hypercapnia suspected
Leukocytosis
Left lower lobe pneumonia with spuutm Cx growing H flu (beta-lactamase negative)
Intermittent hemoptysis
Renal insufficiency, creatinine 1.9 - improving
CKD
Hyperglycemia
Anemia
Obesity and at risk for EARL
Conditions present prior to admission
History of Retroperitoneal hematoma June 2023
Hemorrhagic shock
Right adrenal mass, stable compared to June 2023
Suspected adenoma per imaging
Recurrent falls/ambulatory dysfunction
Chronic atrial fibrillation on Eliquis
Hypertension/hyperlipidemia
Diabetes type 2.�
Heart failure-diastolic and systolic
Third-degree heart block status post PPM
EARL on CPAP 9 cm.�
Chronic constipation.
Cholelithiasis
Right hip surgery.� Spinal stimulator.� Laminectomy.� Right shakir femur.� Tonsillectomy
group home resident
Plan/recommendations
At this time, patient remains critically ill, ventilator dependent --> will perform SAT/SBT today with plans to extubate to BiPAP
Titrate FiO2 to maintain SpO2 >90-94%
Once extubated, extubate to BiPAP and continue BiPAP with sleep
Presented with increased lethargy, upper respiratory symptoms, questionable hypoxia.
Became progressively lethargic despite noninvasive ventilation and pCO2 level of 48 which is likely compensated
Still with secretions albeit much improved
Moving forward
Continue with current management including antibiotics for pneumonia. Patient resides at assisted
Remains on cefepime - would give 7-10 days worth
Follow cultures - blood CX showing NGTD; sputum Cx grew H flu with negative beta lactamase
Hemoptysis noted, on Eliquis. Bloody secretions (mild) noted with suction
Chest x-ray with poor lung volumes, left lower lobe pneumonia
Once extubated, start mucomyst with chest PT and Duonebs TID
Currently on volume-cycled ventilation
Drop PS from 8/5 to 5/5 and plan to extubate to BiPAP 12/5
Follow electrolytes and replete K>4, Mg>2
Continue tube feeds
OG tube in place
Head CT without acute findings
Increased lethargy/obtundation likely secondary to sepsis/lower lobe pneumonia
This is confirmed on CT imaging
Patient does move all extremities, following commands with sedation vacation
Less likely thromboembolic disease, remains on Eliquis for atrial fibrillation
Reviewed with critical care nursing, respiratory care and patient's bedside RN.
Critical care statement: A total of 40 minutes of critical care time was provided for this patient today. This includes management of unstable vital signs, evaluation of the patient at bedside, reviewing the patient's pertinent medical records
including radiographs, microbiology, laboratory evaluations, and discussion with primary team, consultants, pharmacy, nutrition, physical therapy, case management, charge nurse, critical care nursing, and respiratory therapy.
Data:
CXR 11-30-2023:
1. � Large bilateral lower lobe airspace consolidations consistent with SEVERE BILATERAL LOWER LOBE PNEUMONIA which appears unchanged.
2. � Moderately decreased bilateral lung volumes.
3. � Mild cardiomegaly.
4. � Endotracheal and nasogastric tubes remaining in normal position.
5. � Left-sided cardiac pacemaker in place.
CT Chest without IV contrast 11-27-2023:
Parenchymal lung opacities within the left lung as described, most likely representing pneumonia. There may also be a component of atelectasis. Radiographic follow-up is advised to assess for clearing and exclude underlying neoplasia.
Patchy groundglass pneumonitis in the right upper lobe, which is likely patchy pneumonia.
Confluent and band shaped parenchymal opacity within the right lower lung, most likely atelectasis, although a component of pneumonia in this region is also possible.
Possible trace amount of posterior left pleural fluid. No significant right pleural effusion.
Right adrenal gland mass, stable from CT of the abdomen and pelvis of June 23, 2023, and most likely an adenoma.
Subjective Dataa
Subjective Data
Date of Service:
Date of Service: December 01, 2023
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
Subjective:
Seen this AM. Sedation off since at - prop off at 9AM, fentanyl off at 915AM. On pressure support now (05/10) since 10:14AM. Secretions are moderate, greene/blood-tinged and thick. He is answering my questions appropriately but sometimes stares
into my face without responding to my yes/no questions. He is following commands though. Denies chest pain, denies shortness of breath, denies fevers or chills.
Review of Systems
General: Other (Negative unless mentioned above)
Objective Data
Data Reviewed
Vital Signs / I&O / Oxygen:
Vital Signs
Temp Pulse Resp BP Pulse Ox
99.1 F 50 15 110/55 98
12/01/23 07:22 12/01/23 07:48 12/01/23 07:48 12/01/23 06:00 12/01/23 07:48
Intake and Output
11/30/23 12/01/23 12/02/23
06:59 06:59 06:59
Intake Total 3547.9 / 3692.0 3463.4 / 3463.4
Output Total 1959 / 1999 1135 / 1135
Balance 1587.9 / 1692.0 2328.4 / 2328.4
SaO2 [CPAP/PSV] 97
SaO2 [ASV] 99
SaO2 [A/C] 97
SaO2 98
Nasal Cannula flow liters per 4
minute
Physical Exam
General: Comfortable and Other (Thick neck)
HEENT: Normocephalic and Anicteric
Cardiovascular: S1-S2, Murmur (n), Rub (n) and Peripheral Edema (no LE edema b/l)
Respiratory: Wheeze (n), Crackles (n), Rhonchi (bilaterally), Non-Labored Respirations, ET Tube and Other (Decreased breath sounds with reduced inspiratory effort)
GI: Soft, Non Distended (Obese), Non Tender and Other (OG tube)
Neurology: No Motor Deficits (Moves all extremities) and Lethargic (Follows commands, opens eyes, nods appropriately)
Skin: Warm, Dry, Cyanosis (n), Jaundice (n) and Rash (n)
Labs/Micro/Reports
Lab Data
12/01/23 04:15
12/01/23 04:15
Microbiology
11/27/23 13:56 Blood/Venous Blood Culture - Preliminary
No Growth in 72 hours- Final report to follow
11/27/23 19:42 Endotracheal Respiratory Culture - Final
Haemophilus influenzae
11/27/23 19:42 Endotracheal Gram Stain - Final
11/27/23 12:23 Blood/Venous Blood Culture - Preliminary
No Growth in 72 hours- Final report to follow
11/27/23 19:42 Nose Nasal Screen MRSA (PCR) - Final
MRSA not detected - performed by PCR methodology.
[2023-12-01] MEDS: BUSPAR 10 MG TUBE (09:03)
[2023-12-01] MEDS: COREG 6.25 MG PO (09:03)
[2023-12-01] MEDS: MIRALAX 17 GRAMS TUBE (09:03)
[2023-12-01] MEDS: COLACE LIQUID 100 MG TUBE (09:04)
[2023-12-01] MEDS: ELIQUIS 5 MG TUBE (09:04)
[2023-12-01] MEDS: NEURONTIN 300 MG TUBE (09:04)
[2023-12-01] MEDS: LEXAPRO 20 MG TUBE (09:04)
[2023-12-01] MEDS: PROTONIX IV 40 MG IV (09:05)
[2023-12-01] MEDS: REFRESH EYE DROPS (PF) 2 DROPS BOTH EYES ×2 (09:05→20:34)
[2023-12-01] MEDS: NSS (PRESERVATIVE FREE) 10 ML IV (09:05)
--- NOTE | 2023-12-01 10:21 | PTCARENOTE ---
Received pt with eyes closed.Eyes open to voice.Pt follows commands.Nods/shakes head appropriately.100% AV paced.IVF infusing.Propofol and Fentanyl gtts on hold for spontaneous awakening and SBT. #8 ETT to vent.Respiratory therapist has placed pt on
SBT 8/5 40%.Coarse breath sounds noted.Suctioned for moderate amount thick greene secretions.POX 98%OGT [place] with tube feedings.No BM.Lewis draining yellow urine.Left upper arm edematous. made aware.Plan of care discussed with pt.
[2023-12-01 11:44] LABS: Glucose - Point of Care 111 mg/dl (70-99)
--- NOTE | 2023-12-01 11:53 | PTCARENOTE ---
Pt assessed.No change in assessment noted.Pt is more awake and interactive with nodding/shaking hi head to questions.Pt placed in chair position to increase pt participation with SBT.
[2023-12-01] MEDS: ROBITUSSIN PO ×3 (12:51→21:27)
[2023-12-01] MEDS: ROBITUSSIN 200 MG PO (12:51)
--- NOTE | 2023-12-01 14:10 | PTCARENOTE ---
Pt's sister Kyra called into ICU requesting update.Plan of care discussed.
--- NOTE | 2023-12-01 14:35 | W.PN.HOSP.TC ---
Today's Communication/Plan
-
continue vent wean
continue IV Abx
Assessment / Plan
Assessment / Plan
Assessment:
Acute hypoxemic and hypercapnic respiratory failure due to severe bilateral LL PNA
- currently on ASV, weaning sedation with possible extubation today.
- wean sedation.
- Flu/COVID NEG.
- cont Cefepime, day 4. Procal noted but continue abx for now.
- pulm/CC following.
Hypotension:
- h/o essential HTN, home antihypertensives were held on admission.
- BP improved and Coreg was restarted. Cont with hold parameters.
NAOMI on CKD stage IIIb:
- Cr improving with IVFs.
Chronic HFpEF:
- echo 11/28/23 as above, notable for for mildly dilated LV with global hypokinesis and worsening EF to 50% compared to prior.
Paroxysmal A-fib: cont Eliquis.
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
DM2 with diabetic neuropathy: a1c 6.5%, cont Lantus/SSI/accu-checks.
Asthma and COPD: cont Advair.
EARL: uses BIPAP HS.
Fall with left retroperitoneal hematoma in June 2023.
h/o back pain s/p spinal stimulator, laminectomies L4-L5.
Chronic constipation: Cont Miralax.
Depression: Cont Buspar/Lexapro.
Obesity due to excess calories: Affects all aspects of care, encourage weight loss.
DVT ppx: Eliquis
Code: Full
Total Critical Care Time 36 minutes. I was immediately available to the patient and staff. I personally examined, reviewed labs, diagnostic images/reports, interpretations, treatment plans, discussed patient care with other providers and family or
caregivers (if patient is unable to make decisions), entered orders as appropriate and documented the medical record.
Anticipated Discharge: > 48 hours
Subjective/Interval History
-
Date of Service: December 01, 2023
remains intubated, plans for weaning continue today
Objective Data
-
Labs:
Laboratory Results
12/01/23
04:15
WBC 7.2
Hgb 9.7 L
Hct 27.6 L
Plt Count 145
Sodium 137
Potassium 3.7
Chloride 106
Carbon Dioxide 25
BUN 39 H
Creatinine 1.2
Glucose 117 H
Calcium 8.2 L
Total Bilirubin 0.7
AST 13 L
ALT < 10
Alkaline Phosphatase 55
Vital Signs:
Vital Signs
Temp Pulse Resp BP Pulse Ox
99.2 F 54 21 159/78 98
12/01/23 11:22 12/01/23 14:05 12/01/23 14:05 12/01/23 14:00 12/01/23 14:05
I&O
11/30/23 12/01/23 12/02/23
06:59 06:59 06:59
Intake Total 3547.9 / 3692.0 3463.4 / 3575.0 832.3 / 832.3
Output Total 1959 1135 / 1185 445 / 445
Balance 1587.9 / 1692.0 2328.4 / 2390.0 387.3 / 387.3
Physical Exam
-
General: No Apparent Distress and Intubated
HEENT: Normocephalic and Atraumatic
Respiratory: Rhonchi
Cardiac: Regular Rhythm and S1/S2
GI: Soft
Neuro: Awake
Psych: Calm
Data Reviewed
-
Critical Care Time (in minutes): 32
Labs: Labs Reviewed by me
--- NOTE | 2023-12-01 15:55 | PTCARENOTE ---
Pt assessed.No change in assessment noted.Incontinent brown soft stool.ABG completed by RT.
[2023-12-01 16:03] LABS: B.E. -0.7 mmol/L; HCO3 25.4 mmol/L (21-28); PCO2 47 mmHg (35-48); PO2 107 mmHg (83-108); pH 7.34 (7.35-7.45)
--- NOTE | 2023-12-01 17:08 | PTCARENOTE ---
1640-Dr Jenkins at bedside.Pt extubated.Oral [place] tube discontinued at this time.Restraints removed.Pt is able to say his name.cough is weak.Pt encouraged to cough and deep breath.Pt is tolerating BiPAP at this time.
[2023-12-01 17:57] LABS: Glucose - Point of Care 114 mg/dl (70-99)
[2023-12-01] MEDS: DUONEB 3 ML INH (19:45)
[2023-12-01] MEDS: ADVAIR HFA 45/21 MCG INHALER 2 PUFF INH (19:45)
[2023-12-01] MEDS: MUCOMYST 10% 2 ML INH (19:46)
--- NOTE | 2023-12-01 20:00 | PTCARENOTE ---
manager assessment, pt oriented to self, unsure of time/place/situation, forgetful. AFSANEH. Vpaced HR 80s, RA IV x 2 WNL- IVF infusing per work list. pt requesting break from bipap- RT at bedside/placed pt on 3LNC. Lewis draining adequate amt yellow urine.
pt extubated earlier today and NGT was removed at same time- Dr Rivas aware pt night time meds will be held tonight & BDoughertyNP placed order for IV labetalol. mouth care done, call jimenez with patient, bed alarm on.
[2023-12-01] MEDS: COLACE LIQUID TUBE (20:33)
[2023-12-01] MEDS: BUSPAR TUBE (20:33)
[2023-12-01] MEDS: COREG PO (20:33)
[2023-12-01] MEDS: TRANDATE 10 MG IV (20:34)
[2023-12-01] MEDS: NEURONTIN TUBE (20:34)
[2023-12-01] MEDS: ELIQUIS TUBE (20:34)
[2023-12-01] MEDS: LIPITOR TUBE (21:27)
[2023-12-01 23:40] LABS: Glucose - Point of Care 107 mg/dl (70-99)
[2023-12-01] MEDS: LANTUS SC (23:42)
[2023-12-02] VITALS (29 sets, daily range): BP systolic 118–156; BP diastolic 56–86; PULSE 2–78; O2SAT 94–95; BMI 35.8
[2023-12-02] MEDS: LANTUS 0.0599999999999999978 UNITS SC (00:35)
--- NOTE | 2023-12-02 04:00 | PTCARENOTE ---
no changes in pt assessment.
[2023-12-02] MEDS: MAXIPIME 2000 MG IV (05:00)
[2023-12-02] MEDS: STERILE WATER FOR INJECTION 10 ML IV (05:00)
[2023-12-02 06:08] LABS: Hematocrit 29.6 % (39.0-52.0); Hemoglobin 10.1 g/dL (13.0-18.0); Mean Corp Hgb Conc. 34.1 g/dL (33.0-37.0); Mean Corpuscular Hgb 31.1 pg (27.0-31.0); Mean Corpuscular Volume 91.1 fL (80.0-94.0); Mean Platelet Volume 12.6 fL (7.4-10.4); Platelet Count 144 10^3/uL (130-400); Red Blood Cell Count 3.25 10^6/uL (4.70-6.10); Red Cell Dist. Width 13.4 % (11.5-14.5); White Blood Cell Count 7.2 10^3/uL (4.8-10.8)
[2023-12-02 06:29] LABS: Blood Urea Nitrogen 27 mg/dl (9-20); Calcium 8.2 mg/dl (8.4-10.2); Carbon Dioxide 26 mmol/L (22-30); Chloride 109 mmol/L (98-107); Estimated Creatinine Clearance 70 ml/min; Glucose 87 mg/dl (70-99); Potassium 4.2 mmol/L (3.5-5.1); Sodium 137 mmol/L (135-145); eGFR > 60.00
[2023-12-02] MEDS: NOVOLOG FLEXPEN-MODERATE RESISTANCE SC ×3 (06:34→15:45)
--- NOTE | 2023-12-02 08:28 | W.PN.INTV ---
Today's Communication / Plan
Recommendations
BiPAP with sleep
Compelte 10 days of Abx
Chest PT with mucomyst and DuoNebs TID
Obtain outpatient pulmonary medical records - physician's he saw were in [place] --> sister in not sure which doctors that the pt was seeing.
Downgrade out of ICU to telemetry. Pulmonary to follow along briefly, mainly to assure smooth transition back to halfway on BiPAP due to obesity hypoventilation syndrome/hypercapneic respiratory failure.
Assessment
-
73-year-old male with history of hypertension, atrial fibrillation on anticoagulation, asthma, sleep apnea on CPAP therapy halfway resident who presents with URI symptoms for few days. Patient was also noted to be hypoxic, lethargic,
progressive lethargy despite BiPAP therapy. Patient was intubated in the ER. We are asked to help from critical care standpoint 11/27/2023
Acute respiratory failure s/p mechanical ventilation
Intubated in ED, 11/27/2023 ---> extubated 12/01/2023
Hypercapnia suspected to be culprit
Leukocytosis
Left lower lobe pneumonia with sputum Cx growing H flu (beta-lactamase negative)
Intermittent hemoptysis
Renal insufficiency, creatinine 1.9 - improving
CKD
Hyperglycemia
Anemia
Obesity and at risk for EARL
Conditions present prior to admission
History of Retroperitoneal hematoma June 2023
Hemorrhagic shock
Right adrenal mass, stable compared to June 2023
Suspected adenoma per imaging
Recurrent falls/ambulatory dysfunction
Chronic atrial fibrillation on Eliquis
Hypertension/hyperlipidemia
Diabetes type 2.�
Heart failure-diastolic and systolic
Third-degree heart block status post PPM
EARL on CPAP 9 cm.�
Chronic constipation.
Cholelithiasis
Right hip surgery.� Spinal stimulator.� Laminectomy.� Right shakir femur.� Tonsillectomy
long-term resident
Plan/recommendations
At this time, patient has markedly improved, was extubated on 12/01/2023 and is on minimal supplemental oxygen, awake, alert with improving cough
Titrate supplemental oxygen flow rate to maintain SpO2 >90-94%
Patient needs to wear BiPAP with sleep for suspected obesity hypoventilation syndrome
I will check repeat venous blood gas in the morning to assess if his pCO2 is stable on BiPAP
Presented with increased lethargy, upper respiratory symptoms, questionable hypoxia.
Became progressively lethargic despite noninvasive ventilation and pCO2 level of 48 which is likely compensated
He apparently has sleep apnea and was previously on CPAP at 9 cmH2O --> he had been seeing physicians that were in [place], but after speaking with him and his sister, patient wants to transition his care to here. The sister, Kyra, did not
know exactly who his physicians were that he was seeing or who was managing his EARL.
I will arrange for outpatient office follow-up with us in the office and we will need his outpatient medical records as well.
Continue with current management including antibiotics for pneumonia. Patient resides at halfway
This AM he remained on cefepime - can narrow ABx down to Amoxicillin and will complete total of 10 days Abx
Follow cultures - blood CX showing NGTD; sputum Cx grew H flu with negative beta lactamase
Hemoptysis noted, on Eliquis. Bloody secretions (mild) noted with suction --> this has improved s/p extubation
Chest x-ray with poor lung volumes, left lower lobe pneumonia
Continue mucomyst with chest PT and Duonebs TID
Follow electrolytes and replete K>4, Mg>2
QUILL LAYER today --> passed; PO diet ordered
Reviewed with critical care nursing, respiratory care and patient's bedside RN.
His 'other doctors' were in [place] - will try to get medical records, caden for his EARL and CPAP.
Dispo: Downgrade out of ICU to telemetry. Pulmonary to follow along briefly, mainly to assure smooth transition back to halfway on BiPAP due to obesity hypoventilation syndrome/hypercapneic respiratory failure. I also spoke with social work
as the patient/sister want to know if the pt can be transferred back to a different facility as they 'hate [facility].'
Data:
CXR 11-30-2023:
1. � Large bilateral lower lobe airspace consolidations consistent with SEVERE BILATERAL LOWER LOBE PNEUMONIA which appears unchanged.
2. � Moderately decreased bilateral lung volumes.
3. � Mild cardiomegaly.
4. � Endotracheal and nasogastric tubes remaining in normal position.
5. � Left-sided cardiac pacemaker in place.
CT Chest without IV contrast 11-27-2023:
Parenchymal lung opacities within the left lung as described, most likely representing pneumonia. There may also be a component of atelectasis. Radiographic follow-up is advised to assess for clearing and exclude underlying neoplasia.
Patchy groundglass pneumonitis in the right upper lobe, which is likely patchy pneumonia.
Confluent and band shaped parenchymal opacity within the right lower lung, most likely atelectasis, although a component of pneumonia in this region is also possible.
Possible trace amount of posterior left pleural fluid. No significant right pleural effusion.
Right adrenal gland mass, stable from CT of the abdomen and pelvis of June 23, 2023, and most likely an adenoma.
Subjective Dataa
Subjective Data
Date of Service:
Date of Service: December 02, 2023
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
Subjective:
Seen this AM. Joshua is out. BP 147/69. He is on 2 L/min nasal cannula, saturating 97%. Heart rate 64. He wore his BiPAP overnight. He is awake, alert, and not confused this morning. Has a minimal cough.
Review of Systems
General: Other (Negative unless mentioned above)
Objective Data
Data Reviewed
Vital Signs / I&O / Oxygen:
Vital Signs
Temp Pulse Resp BP Pulse Ox
98.5 F 58 21 156/68 98
12/02/23 07:44 12/02/23 08:53 12/02/23 08:53 12/02/23 06:00 12/02/23 08:53
Intake and Output
12/01/23 12/02/23 12/03/23
06:59 06:59 06:59
Intake Total 3463.4 / 3575.0 2031.3 / 2031.3
Output Total 1135 / 1185 1994
Balance 2328.4 / 2390.0 37.3 / 37.3
SaO2 [CPAP/PSV] 98
SaO2 [ASV] 98
SaO2 [A/C] 97
SaO2 98
Nasal Cannula flow liters per 2
minute
Physical Exam
General: Comfortable and Other (Thick neck)
HEENT: Normocephalic and Anicteric
Cardiovascular: S1-S2, Murmur (n), Rub (n) and Peripheral Edema (no LE edema b/l)
Respiratory: Wheeze (n), Crackles (bilateral anterior lung sharma), Rhonchi (negative) and Non-Labored Respirations
GI: Soft, Non Distended (Obese) and Non Tender
Neurology: Awake, Alert, Oriented and No Motor Deficits (Moves all extremities)
Skin: Warm, Dry, Cyanosis (n), Jaundice (n) and Rash (n)
Labs/Micro/Reports
Lab Data
12/02/23 05:33
12/02/23 05:33
Laboratory Results
12/01/23
15:55
pH 7.34 L
pCO2 47
pO2 107
HCO3 25.4
O2 Delivery Level
Microbiology
11/27/23 13:56 Blood/Venous Blood Culture - Preliminary
No Growth in 4 days- Final report to follow
11/27/23 12:23 Blood/Venous Blood Culture - Preliminary
No Growth in 4 days- Final report to follow
11/27/23 19:42 Endotracheal Respiratory Culture - Final
Haemophilus influenzae
11/27/23 19:42 Endotracheal Gram Stain - Final
[2023-12-02] MEDS: LR 1000 IV (08:31)
[2023-12-02] MEDS: DUONEB 3 ML INH ×3 (08:38→20:55)
[2023-12-02] MEDS: MUCOMYST 10% 2 ML INH ×3 (08:38→20:56)
[2023-12-02] MEDS: ADVAIR HFA 45/21 MCG INHALER 2 PUFF INH ×2 (08:38→20:55)
[2023-12-02] MEDS: REFRESH EYE DROPS (PF) 2 DROPS BOTH EYES ×2 (08:43→20:25)
[2023-12-02] MEDS: PROTONIX IV 40 MG IV (08:43)
[2023-12-02] MEDS: NSS (PRESERVATIVE FREE) 10 ML IV (08:43)
--- NOTE | 2023-12-02 10:00 | PTCARENOTE ---
Pt awake and alert. Mentation seems to be improving. He is asking appropriate questions regarding his care. Right upper arm #20g protective catheter and right AC#20g protective catheter flushed and patent. Right AC with LR@50ml/hr. Weak pedal
pulses. Trace anasarca. Lungs diminished. Moist non-productive cough. BiPap mask removed and placed on 3 liters nasal cannula by respiratory therapist. He was informed of the plan of care regarding advancing his diet, and discharge planning and
removal of his Lewis catheter. Incontinent of BM, he reports that he does not know when he needs to have a BM but is able to tell when he has to urinate. Partial bath given, repositioned in the bed. He tolerated ice chips and sips of water with
straw. Swallowed 2 small pills whole. He verbalized that he has no problems with eating or swallowing his foods. Safe environment maintained.Will continue supportive care.
[2023-12-02] MEDS: COREG 6.25 MG PO ×2 (10:27→20:26)
[2023-12-02] MEDS: ROBITUSSIN 200 MG PO ×4 (10:28→22:02)
[2023-12-02 12:09] LABS: Glucose - Point of Care 104 mg/dl (70-99)
[2023-12-02] MEDS: LEXAPRO 20 MG PO (12:28)
[2023-12-02] MEDS: ELIQUIS 5 MG PO ×2 (12:28→22:02)
--- NOTE | 2023-12-02 12:43 | PTCARENOTE ---
No changes. Pt's sister has been updated over the phone. He was provided an update regarding his diet and the plan for continuing his medications.
--- NOTE | 2023-12-02 12:57 | PTOTSP ---
ST Dysphagia tx/Follow up session
Mild oral dysphagia
Pt received awake/alert oriented x2-3 with cues. Extubated to BIPAP 12/01 now on nasal cannula 3Lo2. Respirations appear even/unlabored and SPO2 maintained >94% throughout session. Vocal quality is clear with adequate intensity. Per RN took meds
whole with sips of water without difficulty. HOB raised upright for PO trials of puree, regular solids and thin liquids. Demo mildly prolonged yet effective mastication and bolus was orally cleared. Thin liquids by straw serial sips there as subtle
throat clearing after swallow. This was eliminated with small/single sips.
Recommend
1. Regular Solids and Thin liquids - small/single sips only
2. Aspiration precautions and meal set up with feeding assist as needed
3. Small bites, small/single sips and slow rate
4. Meds whole/single with sips of water
5. METAL HANGING HELPER following; monitor diet tolerance, strategy training/education as indicated
Spoke w/ RN re: eval findings and recommendations
[2023-12-02] MEDS: BUSPAR TUBE (13:04)
[2023-12-02] MEDS: ELIQUIS TUBE (13:06)
[2023-12-02] MEDS: COLACE LIQUID TUBE (13:06)
[2023-12-02] MEDS: LEXAPRO TUBE (13:07)
[2023-12-02] MEDS: MIRALAX TUBE (13:07)
[2023-12-02] MEDS: NEURONTIN TUBE (13:07)
--- NOTE | 2023-12-02 15:08 | CM ---
CM following re: discharge planning.
Discussed in Rounds, reviewed pt's chart, met with pt. Per Rounds meeting pt extubated yesterday, currently requires 2L NC of O2, continue supportive care.
Pt is a [facility] care resident, on Medicaid 15 day bed hold and pt will be accepted back when medically stable. Per [facility] liaison, an auth will require if pt needs skilled services. Per liaison, an auth can be initiated if skilled
services indicated and pt will be accepted with pending auth number.
CM faxed pt's clinical to [facility] for a review.
D/C plan: return back to [facility] when medically stable.
CM will follow with discharge plan updates as hospitalization progresses
--- NOTE | 2023-12-02 15:43 | PTCARENOTE ---
Sister Kyra called again for update. She was informed that he is eating, and worked with PT/OT and sat up on the side of the bed. She was also notified that Dr. Rivas was going to call her with a physician update.
[2023-12-02 15:47] LABS: Glucose - Point of Care 107 mg/dl (70-99)
[2023-12-02] MEDS: AMOXIL 1000 MG PO ×2 (16:59→22:02)
--- NOTE | 2023-12-02 16:59 | W.PN.HOSP.TC ---
Today's Communication/Plan
-
transfer OOICU
Assessment / Plan
Assessment / Plan
Assessment:
Acute hypoxemic and hypercapnic respiratory failure due to severe bilateral LL PNA
- s/p extubation 12/01 afternoon
- wean sedation.
- Flu/COVID NEG.
- Cefepime changed to Amox 1 gm po q8h. Procal noted (0.08)but continue abx for now.
- pulm/CC following.
Hypotension:
- h/o essential HTN, home antihypertensives were held on admission.
- BP improved and Coreg was restarted. Cont with hold parameters.
NAOMI on CKD stage IIIb:
- off IVFs. Better 01/11.
Chronic HFpEF:
- echo 11/28/23 as above, notable for for mildly dilated LV with global hypokinesis and worsening EF to 50% compared to prior.
Paroxysmal A-fib: cont Eliquis.
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
DM2 with diabetic neuropathy: a1c 6.5%, cont Lantus/SSI/accu-checks.
Asthma and COPD: cont Advair.
EARL: uses BIPAP HS.
Fall with left retroperitoneal hematoma in June 2023.
h/o back pain s/p spinal stimulator, laminectomies L4-L5.
Chronic constipation: Cont Miralax.
Depression: Cont Buspar/Lexapro.
Obesity due to excess calories: Affects all aspects of care, encourage weight loss.
DVT ppx: Eliquis
Code: Full
transfer OOICU
PT/OT
Call placed to sisterKyra to update
Anticipated Discharge: > 48 hours
Subjective/Interval History
-
Date of Service: December 02, 2023
Pt extubated, appears comfortable
Objective Data
-
Labs:
Laboratory Results
12/02/23
05:33
WBC 7.2
Hgb 10.1 L
Hct 29.6 L
Plt Count 144
Sodium 137
Potassium 4.2
Chloride 109 H
Carbon Dioxide 26
BUN 27 H
Creatinine 1.2
Glucose 87
Calcium 8.2 L
Vital Signs:
Vital Signs
Temp Pulse Resp BP Pulse Ox
99.3 F 58 25 146/73 95
12/02/23 15:11 12/02/23 15:30 12/02/23 15:30 12/02/23 14:01 12/02/23 15:30
I&O
12/01/23 12/02/23 12/03/23
06:59 06:59 06:59
Intake Total 3463.4 / 3575.0 2032.3 / 2082.3 200 / 200
Output Total 1135 / 1185 1994 / 1994 380 / 380
Balance 2328.4 / 2390.0 37.3 / 87.3 -180 / -180
Review of Systems
-
History Source: Patient and Coordinated Provider
Constitutional: Denies Fever (hypothermia resolved)
Respiratory: Reports Cough and Trouble Breathing (much improved)
Cardiac: Reports No Symptoms; Denies Chest Pain
Abdomen/GI: Reports No Symptoms
Musculoskeletal: Reports No Symptoms
Neuro: Reports No Symptoms
Physical Exam
-
General: Well Developed, Well Nourished and No Apparent Distress
HEENT: Normocephalic, Atraumatic and Moist Mucous Membranes
Respiratory: Rales (bibasilar rales); Negative Wheezes or Rhonchi (resolved)
Cardiac: Regular Rhythm and S1/S2
GI: Soft, Nontender and Nondistended
Musculoskeletal: No Clubbing, No Cyanosis and No Edema
--- NOTE | 2023-12-02 20:00 | PTCARENOTE ---
rec`d pt at 1900 laying bed. pt does not know year or place, but knows self and dari RN names. moves all 4 extrem. afebrile. baseline zafar HR. 50-60s. 2 peripheral lines, rt FA 20 and Rt U FA 20. both capped. 2L NC satting at 98% moist non
productive cough. incontinent of BM and urine. immeasurable of both urine and BM. call jimenez in reach. safe environment maintained.
[2023-12-02] MEDS: BUSPAR 10 MG PO (20:26)
[2023-12-02] MEDS: NEURONTIN 300 MG PO (20:26)
[2023-12-02] MEDS: COLACE PO (20:34)
[2023-12-02] MEDS: LIPITOR 10 MG PO (22:02)
[2023-12-03] VITALS (19 sets, daily range): BP systolic 131–157; BP diastolic 57–135; PULSE 2–58; BMI 35.8
--- NOTE | 2023-12-03 00:18 | PTCARENOTE ---
pt reassessed. no changes in pt assessment. pt laying comfortably.
[2023-12-03 04:35] LABS: Venous Blood Gas HCO3 28.6 mmol/L (22-27); Venous Blood Gas O2 Sat % 83.9 %; Venous Blood Gas pCO2 53 mmHg (35-48); Venous Blood Gas pH 7.34 (7.32-7.43); Venous Blood Gas pO2 54 mmHg (30-50)
[2023-12-03 04:44] LABS: Hematocrit 29.6 % (39.0-52.0); Hemoglobin 10.3 g/dL (13.0-18.0); Mean Corp Hgb Conc. 34.8 g/dL (33.0-37.0); Mean Corpuscular Hgb 30.9 pg (27.0-31.0); Mean Corpuscular Volume 88.9 fL (80.0-94.0); Mean Platelet Volume 12.2 fL (7.4-10.4); Platelet Count 139 10^3/uL (130-400); Red Blood Cell Count 3.33 10^6/uL (4.70-6.10); Red Cell Dist. Width 13.4 % (11.5-14.5); White Blood Cell Count 7.8 10^3/uL (4.8-10.8)
[2023-12-03 04:45] LABS: Venous Blood Gas O2 Therapy 2L/MIN
[2023-12-03 05:17] LABS: Blood Urea Nitrogen 25 mg/dl (9-20); Calcium 8.6 mg/dl (8.4-10.2); Carbon Dioxide 27 mmol/L (22-30); Chloride 104 mmol/L (98-107); Estimated Creatinine Clearance 75 ml/min; Glucose 105 mg/dl (70-99); Sodium 136 mmol/L (135-145); eGFR > 60.00
[2023-12-03] MEDS: DUONEB 3 ML INH ×3 (07:39→21:31)
[2023-12-03] MEDS: MUCOMYST 10% 2 ML INH ×3 (07:39→21:31)
[2023-12-03] MEDS: NOVOLOG FLEXPEN-MODERATE RESISTANCE SC ×2 (07:39→16:18)
[2023-12-03] MEDS: ADVAIR HFA 45/21 MCG INHALER 2 PUFF INH ×2 (07:39→21:31)
[2023-12-03] MEDS: COREG 6.25 MG PO ×2 (07:40→19:39)
[2023-12-03] MEDS: LASIX 40 MG PO (07:40)
[2023-12-03] MEDS: ELIQUIS 5 MG PO ×2 (07:40→19:39)
[2023-12-03] MEDS: NEURONTIN 300 MG PO ×2 (07:40→19:39)
[2023-12-03] MEDS: LEXAPRO 20 MG PO (07:40)
[2023-12-03] MEDS: AMOXIL 1000 MG PO ×3 (07:40→20:50)
[2023-12-03] MEDS: PROTONIX 40 MG PO (07:40)
[2023-12-03] MEDS: REFRESH EYE DROPS (PF) 2 DROPS BOTH EYES ×2 (07:40→19:39)
[2023-12-03] MEDS: ROBITUSSIN 200 MG PO ×3 (07:41→20:50)
[2023-12-03] MEDS: BUSPAR 10 MG PO ×2 (07:41→19:39)
[2023-12-03] MEDS: COLACE PO ×2 (07:41→19:43)
[2023-12-03 07:50] LABS: Glucose - Point of Care 112 mg/dl (70-99)
--- NOTE | 2023-12-03 09:05 | PTCARENOTE ---
Pt awake and alert. Mentation seems to be improving. He is asking appropriate questions regarding his care. Right upper arm #20g protective catheter and right AC#20g protective catheter flushed and patent. Weak pedal pulses. Trace anasarca. Lungs
with rhonchi. Moist non-productive cough. BiPap mask removed and placed on 2 liters nasal cannula by respiratory therapist. He was informed of the plan of care regarding advancing his diet, and discharge planning. Incontinent of urine and BM, he
reports that he does not know when he needs to have a BM but is able to tell when he has to urinate. Partial bath given, repositioned in the bed. Requesting consult with cardiology to have PPM interrogated but unable to state why it's necessary.
Hospitalist notified. Safe environment maintained.Will continue supportive care.
--- NOTE | 2023-12-03 09:25 | W.PN.PUL3 ---
Today's Communication / Plan
-
BiPAP with sleep
Complete 10 days of Abx
Chest PT with mucomyst and DuoNebs TID
Obtain outpatient pulmonary medical records�- physician's he saw were apparently in [place] --> sister and patient not sure which doctors that the pt was seeing. I will arrange for outpatient follow up with me in [facility] office
Pulmonary to continue to briefly follow along, mainly to ensure a smooth transition back to assisted on BiPAP due to obesity hypoventilation syndrome/hypercapneic respiratory failure.
Assessment
-
73-year-old male with history of hypertension, atrial fibrillation on anticoagulation, asthma, sleep apnea on CPAP therapy assisted resident who presents with URI symptoms for few days.� Patient was also noted to be hypoxic, lethargic,
progressive lethargy despite BiPAP therapy.� Patient was intubated in the ER.� We are asked to help from critical care standpoint 11/27/2023
Acute respiratory failure s/p mechanical ventilation
Intubated in ED, 11/27/2023 ---> extubated 12/01/2023
Hypercapnia suspected to be culprit
Leukocytosis - resolved
Lower lobe and posterior upper lobe pneumonia with sputum Cx growing H flu (beta-lactamase negative)
Intermittent hemoptysis
Suspected bronchomalacia in lower lobes
Renal insufficiency, creatinine 1.9 - improving
CKD
Hyperglycemia
Anemia
Obesity and at risk for EARL
Conditions present prior to admission
History of Retroperitoneal hematoma June 2023
Hemorrhagic shock
Right adrenal mass, stable compared to June 2023
Suspected adenoma per imaging
Recurrent falls/ambulatory dysfunction
Chronic atrial fibrillation on Eliquis
Hypertension/hyperlipidemia
Diabetes type 2.�
Heart failure-diastolic and systolic
Third-degree heart block status post PPM
EARL on CPAP 9 cmH2O --> he cannot tell me where initial sleep study done or who has been managing his EARL
Chronic constipation.
Cholelithiasis
Right hip surgery.� Spinal stimulator.� Laminectomy.� Right shakir femur.� Tonsillectomy
[facility] resident
Plan/recommendations
Titrate supplemental oxygen flow rate to maintain SpO2 >90-94%
Patient needs to wear BiPAP with sleep�for suspected obesity hypoventilation syndrome
He previously diagnosed obstructive sleep apnea and was previously on CPAP @ 9 cmH2O --> he had been seeing physicians that were in [place], but after speaking with him and his sister, patient wants to transition his care to here.� The sister,
Kyra, nor the patient knows who his physicians were that he was seeing or who was managing his EARL.
I will arrange for outpatient office follow-up with us in the office�and we will need his outpatient medical records as well.
If unable to locate his baseline sleep study then he may need a repeat, perhaps best would be a split-night
Continue with current management including antibiotics for pneumonia.
Yesterday AM he remained on cefepime,and ABx were narrowed to Amoxicillin to�complete total of 10 days Abx
Follow cultures - blood CX showing NGTD; sputum Cx grew H flu with negative beta lactamase
Hemoptysis noted, on Eliquis.� Bloody secretions (mild) noted with suction --> this has improved s/p extubation
Chest x-ray with poor lung volumes, left lower lobe pneumonia
Multifocal PNA seen on Ct chest
Continue mucomyst with chest PT and Duonebs TID
Follow electrolytes and replete K>4, Mg>2
INFLATED PAD BUFFER on 12/02 --> passed; PO diet ordered
Reviewed with critical care nursing, respiratory care and patient's bedside RN.
His 'other doctors' were in [place] - will try to get medical records, caden for his EARL and CPAP.
Pulmonary to follow along briefly, mainly to assure smooth transition back to assisted on BiPAP due to obesity hypoventilation syndrome/hypercapneic respiratory failure.� I also will speak with social work as the patient/sister want to know if
the pt can be transferred back to a different facility as they 'hate [facility].'
Data:
CXR 12-03-2023:
Discontinued endotracheal tube and nasogastric tube.
Improved aeration in the retrocardiac left lower lobe with probable minor residual atelectasis.
CXR 11-30-2023:
1. � Large bilateral lower lobe airspace consolidations consistent with SEVERE BILATERAL LOWER LOBE PNEUMONIA which appears unchanged.
2. � Moderately decreased bilateral lung volumes.
3. � Mild cardiomegaly.
4. � Endotracheal and nasogastric tubes remaining in normal position.
5. � Left-sided cardiac pacemaker in place.
CT Chest without IV contrast 11-27-2023:
Parenchymal lung opacities within the left lung as described, most likely representing pneumonia. There may also be a component of atelectasis. Radiographic follow-up is advised to assess for clearing and exclude underlying neoplasia.
Patchy groundglass pneumonitis in the right upper lobe, which is likely patchy pneumonia.
Confluent and band shaped parenchymal opacity within the right lower lung, most likely atelectasis, although a component of pneumonia in this region is also possible.
Possible trace amount of posterior left pleural fluid. No significant right pleural effusion.
Right adrenal gland mass, stable from CT of the abdomen and pelvis of June 23, 2023, and most likely an adenoma.
Subjective Data
-
Date of Service:
Date of Service: December 03, 2023
Chief Complaint: Pulmonary Follow Up
Subjective:
Patient seen this morning and he is doing well. Wore BiPAP overnight on settings / bled with 3L/min. He is currently on 2 L/min nasal cannula, he says he feels well. No acute events reported overnight.
Review of Systems
General: Other (Negative unless mentioned above)
Objective Data
Data Reviewed
Vital Signs / I&O / Oxygen:
Vital Signs
Temp Pulse Resp BP Pulse Ox
98.7 F 65 22 154/135 96
12/03/23 07:31 12/03/23 08:30 12/03/23 08:30 12/03/23 08:01 12/03/23 08:30
Intake and Output
12/02/23 12/03/23 12/04/23
06:59 06:59 06:59
Intake Total 2.3 / 2.3 440 / 440 240 / 240
Output Total 1994 380 / 380
Balance 37.3 / 87.3 60 / 60 240 / 240
SaO2 [CPAP/PSV] 98
SaO2 [ASV] 98
SaO2 [A/C] 97
SaO2 96
Nasal Cannula flow liters per 2
minute
Physical Exam
General: Comfortable
HEENT: Normocephalic and Anicteric
Cardiovascular: S1-S2 and Peripheral Edema (negative)
Respiratory: Wheeze (negative), Crackles (Bilaterally mainly in posterior lung sharma) and Non-Labored Respirations
GI: Soft, Non Distended, Non Tender, Normal Bowel Sounds and Other (abdominal obesity)
Neurology: Awake, Alert and Tremors (negative)
Skin: Warm and Dry
Labs/Micro/Reports
Lab Data
12/03/23 04:30
12/03/23 04:30
Microbiology
11/27/23 13:56 Blood/Venous Blood Culture - Final
No Growth - Final Report
11/27/23 12:23 Blood/Venous Blood Culture - Final
No Growth - Final Report
11/27/23 19:42 Endotracheal Respiratory Culture - Final
Haemophilus influenzae
11/27/23 19:42 Endotracheal Gram Stain - Final
[2023-12-03 12:17] LABS: Glucose - Point of Care 220 mg/dl (70-99)
[2023-12-03] MEDS: NOVOLOG FLEXPEN-MODERATE RESISTANCE 3 UNITS SC (12:59)
--- NOTE | 2023-12-03 15:36 | W.PN.HOSP.TC ---
Today's Communication/Plan
-
wean O2
continue Abx
DC planning to SNF
Assessment / Plan
Assessment / Plan
Assessment:
Acute hypoxemic and hypercapnic respiratory failure due to severe bilateral LL PNA
- s/p extubation 12/01 afternoon
- Flu/COVID NEG.
- Cefepime changed to Amox 1 gm po q8h. Procal noted (0.08)but continue abx for now.
- repeat CXR improving
- pulm/CC following.
Hypotension:
- h/o essential HTN, home antihypertensives were held on admission.
- BP improved and Coreg was restarted. Cont with hold parameters.
NAOMI on CKD stage IIIb:
- improved on IVF, now stopped
Chronic HFpEF:
- echo 11/28/23 as above, notable for for mildly dilated LV with global hypokinesis and worsening EF to 50% compared to prior.
Paroxysmal A-fib: cont Eliquis.
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
DM2 with diabetic neuropathy: a1c 6.5%, cont Lantus/SSI/accu-checks.
Asthma and COPD: cont Advair.
EARL: uses BIPAP HS.
Fall with left retroperitoneal hematoma in June 2023.
h/o back pain s/p spinal stimulator, laminectomies L4-L5.
Chronic constipation: Cont Miralax.
Depression: Cont Buspar/Lexapro.
Obesity due to excess calories: Affects all aspects of care, encourage weight loss.
DVT ppx: Eliquis
Code: Full
Anticipated Discharge: > 48 hours
Subjective/Interval History
-
Date of Service: December 03, 2023
denies any complaints, on 2L NC
Objective Data
-
Labs:
Laboratory Results
12/03/23
04:30
WBC 7.8
Hgb 10.3 L
Hct 29.6 L
Plt Count 139
Sodium 136
Potassium 4.0
Chloride 104
Carbon Dioxide 27
BUN 25 H
Creatinine 1.1
Glucose 105 H
Calcium 8.6
Vital Signs:
Vital Signs
Temp Pulse Resp BP Pulse Ox
98.2 F 64 25 138/82 96
12/03/23 11:33 12/03/23 14:30 12/03/23 14:30 12/03/23 13:58 12/03/23 14:30
I&O
12/02/23 12/03/23 12/04/23
06:59 06:59 06:59
Intake Total 2.3 / 2.3 440 / 440 240 / 240
Output Total 1994 / 1994 380 / 380
Balance 37.3 / 87.3 60 / 60 240 / 240
Physical Exam
-
General: No Apparent Distress
HEENT: Normocephalic and Atraumatic
Respiratory: Negative Wheezes or Rales
Cardiac: Regular Rhythm and S1/S2
GI: Soft
Genito-urinary: No Costovertebral Tender
Musculoskeletal: No Edema
Neuro: AO x 3
Hematologic / Lymphatic: No Lymphadenopathy
Psych: Calm
Data Reviewed
-
Total Time Spent with Patient (in minutes): 45
Labs: Labs Reviewed by me
--- NOTE | 2023-12-03 16:29 | PTCARENOTE ---
Called Kristen Picharod and requested CPAP belonging to pt to sent to hospital to evaluate for BiPAP mode. Pt and sister notified
[2023-12-03] MEDS: ROBITUSSIN PO (16:57)
--- NOTE | 2023-12-03 17:19 | CM ---
Patient is well known to rn field case manager from previous skilled placements, patient has been at [facility], [facility], [facility] and now patient was admitted from [facility]. Patient has his own CPAP
machine that [facility] will transport to hospital.
Plan; Return to [facility].
[2023-12-03] MEDS: MYCOSTATIN CREAM 1 APPLIC TOPICAL (19:42)
--- NOTE | 2023-12-03 20:00 | PTCARENOTE ---
rec`d pt at 1900, pt resting in bed. pt knows name and birthday, but hard time with where he is at. afebrile. zafar HR, upper 50s. 2 peripheral IVs. Rt FA 20 and Rt U FA 20. 2L NC satting at 97%. moist but non productive cough. incontinent of BM and
urine. 1x saturated pad of urine. skin moisture barrier placed on sacrum. call jimenez in reach, safe environment maintained.
[2023-12-03] MEDS: LIPITOR 10 MG PO (20:50)
[2023-12-03 23:42] LABS: Glucose - Point of Care 169 mg/dl (70-99)
[2023-12-04] VITALS (8 sets, daily range): BP systolic 132–164; BP diastolic 60–85; PULSE 2–55; BMI 35.2; BMI 35.5; BMI 35.9
--- NOTE | 2023-12-04 04:36 | PTCARENOTE ---
Addendum entered by Elizabeth Almaraz RN 12/04/23 04:41:
MD aware of pt`s decision.
Original Note:
pt reassessed. pt refused morning labs. pt educated on importance of blood work. pt still denied.
[2023-12-04] MEDS: PROTONIX 40 MG PO (07:12)
[2023-12-04] MEDS: NOVOLOG FLEXPEN-MODERATE RESISTANCE SC (07:12)
[2023-12-04] MEDS: ELIQUIS 5 MG PO ×2 (07:13→20:20)
[2023-12-04] MEDS: COLACE 100 MG PO ×2 (07:13→20:19)
[2023-12-04] MEDS: BUSPAR 10 MG PO ×2 (07:13→20:20)
[2023-12-04] MEDS: ROBITUSSIN 200 MG PO ×4 (07:13→21:50)
[2023-12-04] MEDS: LASIX 40 MG PO (07:13)
[2023-12-04] MEDS: COREG 6.25 MG PO ×2 (07:13→20:20)
[2023-12-04] MEDS: LEXAPRO 20 MG PO (07:13)
[2023-12-04] MEDS: NEURONTIN 300 MG PO ×2 (07:13→20:19)
[2023-12-04] MEDS: AMOXIL 1000 MG PO ×3 (07:13→21:50)
[2023-12-04] MEDS: REFRESH EYE DROPS (PF) 2 DROPS BOTH EYES ×2 (07:14→20:28)
[2023-12-04] MEDS: MYCOSTATIN CREAM 1 APPLIC TOPICAL ×2 (07:15→20:28)
[2023-12-04 07:23] LABS: Glucose - Point of Care 124 mg/dl (70-99)
[2023-12-04] MEDS: DUONEB 3 ML INH ×3 (07:44→19:17)
[2023-12-04] MEDS: MUCOMYST 10% 2 ML INH ×3 (07:44→19:17)
[2023-12-04] MEDS: ADVAIR HFA 45/21 MCG INHALER 2 PUFF INH ×2 (07:44→19:18)
--- NOTE | 2023-12-04 08:01 | PTCARENOTE ---
Received pt at 0700, pt resting in bed. A&O. afebrile. zafar HR, upper 50s. 2 peripheral IVs. Rt FA 20 and Rt U FA 20. RA with SpO2 94%. moist but non productive cough. incontinent of BM and urine. 1x saturated pad of urine. skin moisture barrier
placed on sacrum. call jimenez in reach, safe environment maintained.
--- NOTE | 2023-12-04 10:52 | CM ---
Addendum entered by Flakito Rainey 12/04/23 15:05:
According to pt will be ready for discharge tomorrow.
CM met with pt again and spoke to pt's sister Kyra and both are aware of pt's discharge to [facility] tomorrow. IMM reviewed, placed in chart, pt has a copy.
CM initiated an auth from [facility], spoke to home health care case manager Marti, pending auth number is [id number]. Requested pt's clinical faxed to provided fax number [phone].
CM spoke to [facility] liaison, pending auth number provided and she confirmed that pt is accepted for admission to [facility] with pending auth number due to pt is a intermediate care resident.
will arrange transportation BLS for tomorrow 12/05/23 with tentative cigar packer and picker time 11:00 a. m. [facility] completed and left with .
[facility] nursing report: [phone]
Discharge instructions fax: [phone]
D/C plan: [facility].
Addendum entered by Flakito Rainey 12/04/23 12:21:
[facility] liaison asked to initiate an auth for SNF level of care at [facility] closer to discharge and pt will be admitted with pending auth.
Original Note:
CM following re: discharge planning.
Reviewed pt's chart, met with pt.
According to Lithoduplicator Operator pt will need Bi-pap at his intermediate and pt does not want to return back to [facility].
CM had a long conversation with the pt. Pt did express his negative feelings regarding being a intermediate resident. pt stated he is hoping and planning to live in an independent apartment. Pt has been informed that this CM spoke to pt's sister
Kyra and she stated she will not be able to bring him home because she has own medical and physical issues. Pt stated he is aware and that's why he is looking for to live in an independent apartment.
Pt expressed to me his understanding that he cannot live in an apartment 'like this' because he needs a lot of care and pt expressed his desire to get better and when he is more independent then he will work on getting back to the community. CM
provided pt with informations regarding intermediate transition program, pt expressed his interest and pt has been notified that a older adult social work specialist at [facility] will start that process after pt stayed at the intermediate for 6 months. Pt stated
he has been living at [facility] since July 2023.
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 Pt stated that [facility]
brought him to [facility] for a tour and pt stated he did not like a 'culture there'. Pt expressed no preferences in nursing homes but pt asked he wants a 'nice one'. Pt mentioned [facility] [place] [facility] and pt was informed that [facility] [place] has no long
term care. Pt mentioned about [facility] and pt has been informed that usually [facility] has a waiting list and pt stated he will talk to his sister Kyra to put him on a waiting list at [facility].
At this point, pt agrees to return back to [facility] with a plan to start the process of intermediate transition program in January of this year and if pt does not qualified to return back to the community then pt will be on a waiting list
to get to [facility].
Updated pt's clinical faxed to [facility].
CM spoke to [facility] liaison regarding pt's concerns and the need of Bi-pap machine with 15/5 setting.
D/C plan: return back to [facility] for a ling term care with plans described above.
CM will follow to assist pt with discharge to [facility].
[2023-12-04 11:08] LABS: Glucose - Point of Care 226 mg/dl (70-99)
[2023-12-04 12:25] LABS: Glucose - Point of Care 135 mg/dl (70-99)
--- NOTE | 2023-12-04 12:39 | W.PN.HOSP.TC ---
Today's Communication/Plan
-
DC planning to SNF in 24 hours
Assessment / Plan
Assessment / Plan
Assessment:
Acute hypoxemic and hypercapnic respiratory failure due to severe bilateral LL PNA
- s/p extubation 12/01 afternoon
- Flu/COVID NEG.
- Cefepime changed to Amox 1 gm po q8h. Procal noted (0.08)but continue abx for now.
- repeat CXR improving
- pulm/CC following.
Hypotension:
- h/o essential HTN, home antihypertensives were held on admission.
- BP improved and Coreg was restarted. Cont with hold parameters.
NAMOI on CKD stage IIIb:
- improved on IVF, now stopped
Chronic HFpEF:
- echo 11/28/23 as above, notable for for mildly dilated LV with global hypokinesis and worsening EF to 50% compared to prior.
Paroxysmal A-fib: cont Eliquis.
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
DM2 with diabetic neuropathy: a1c 6.5%, cont Lantus/SSI/accu-checks.
Asthma and COPD: cont Advair.
EARL: uses BIPAP HS.
Fall with left retroperitoneal hematoma in June 2023.
h/o back pain s/p spinal stimulator, laminectomies L4-L5.
Chronic constipation: Cont Miralax.
Depression: Cont Buspar/Lexapro.
Obesity due to excess calories: Affects all aspects of care, encourage weight loss.
DVT ppx: Eliquis
Code: Full
Anticipated Discharge: Within 24 hours
Subjective/Interval History
-
Date of Service: December 04, 2023
improving, no complaints
Objective Data
-
Vital Signs:
Vital Signs
Temp Pulse Resp BP Pulse Ox
98.2 F 67 20 139/71 92
12/04/23 11:05 12/04/23 11:05 12/04/23 11:05 12/04/23 11:05 12/04/23 11:05
I&O
12/03/23 12/04/23 12/05/23
06:59 06:59 06:59
Intake Total 440 / 440 1290 / 1290
Output Total 380 / 380
Balance 60 / 60 1290 / 1290
Physical Exam
-
General: No Apparent Distress
HEENT: Normocephalic and Atraumatic
Respiratory: Negative Wheezes or Rales
Cardiac: Regular Rhythm and S1/S2
GI: Soft and Nontender
Genito-urinary: No Costovertebral Tender
Musculoskeletal: No Edema
Neuro: AO x 3
Psych: Calm
Data Reviewed
-
Total Time Spent with Patient (in minutes): 45
Labs: Labs Reviewed by me
--- NOTE | 2023-12-04 12:54 | W.PN.PUL3 ---
Today's Communication / Plan
-
Continue nocturnal BiPAP
Complete antibiotic therapy
May continue nebulizers while in the hospital
Continue outpatient inhalers upon discharge sign off
Assessment
-
73-year-old male with history of hypertension, atrial fibrillation on anticoagulation, asthma, sleep apnea on CPAP therapy alf resident who presents with URI symptoms for few days.� Patient was also noted to be hypoxic, lethargic,
progressive lethargy despite BiPAP therapy.� Patient was intubated in the ER.� We are asked to help from critical care standpoint 11/27/2023
Acute respiratory failure s/p mechanical ventilation
Intubated in ED, 11/27/2023 ---> extubated 12/01/2023
Hypercapnia suspected to be culprit
Leukocytosis - resolved
Lower lobe and posterior upper lobe pneumonia with sputum Cx growing H flu (beta-lactamase negative)
Intermittent hemoptysis
Suspected bronchomalacia in lower lobes
Renal insufficiency, creatinine 1.9 - improving
CKD
Hyperglycemia
Anemia
Obesity and at risk for EARL
Conditions present prior to admission
History of Retroperitoneal hematoma June 2023
Hemorrhagic shock
Right adrenal mass, stable compared to June 2023
Suspected adenoma per imaging
Recurrent falls/ambulatory dysfunction
Chronic atrial fibrillation on Eliquis
Hypertension/hyperlipidemia
Diabetes type 2.�
Heart failure-diastolic and systolic
Third-degree heart block status post PPM
EARL on CPAP 9 cmH2O --> he cannot tell me where initial sleep study done or who has been managing his EARL
Chronic constipation.
Cholelithiasis
Right hip surgery.� Spinal stimulator.� Laminectomy.� Right shakir femur.� Tonsillectomy
longterm resident
Plan/recommendations
Patient remains clinically improved since admission
Currently on room air
Afebrile.
-
Patient needs to wear BiPAP with sleep�for suspected obesity hypoventilation syndrome continue the current settings.
He previously diagnosed obstructive sleep apnea and was previously on CPAP @ 9 cmH2O --> he had been seeing physicians that were in [place], but after speaking with him and his sister, patient wants to transition his care to here.�
Prior conversations: The sister, Kyra, nor the patient knows who his physicians were that he was seeing or who was managing his EARL.
Will accommodate locally for further evaluation. May need to repeat a split-night study.
-
Continue antibiotics, seems to be responding well.
Yesterday AM he remained on cefepime,and ABx were narrowed to Amoxicillin to�complete total of 10 days Abx
Follow cultures - blood CX showing NGTD; sputum Cx grew H flu with negative beta lactamase
-
Hemoptysis noted, on Eliquis.� Bloody secretions (mild) noted with suction --> this has improved s/p extubation, denies hemoptysis.
Chest x-ray with poor lung volumes, left lower lobe pneumonia
Multifocal PNA seen on Ct chest
Continue mucomyst with chest PT and Duonebs TID while in the hospital.
-
His 'other doctors' were in [place] - will try to get medical records, caden for his EARL and CPAP.
-
No additional recommendation from the pulmonary perspective.
Continue with current care
Outpatient pulmonary follow-up.
-Sign off
Data:
CXR 12-03-2023:
Discontinued endotracheal tube and nasogastric tube.
Improved aeration in the retrocardiac left lower lobe with probable minor residual atelectasis.
CXR 11-30-2023:
1. � Large bilateral lower lobe airspace consolidations consistent with SEVERE BILATERAL LOWER LOBE PNEUMONIA which appears unchanged.
2. � Moderately decreased bilateral lung volumes.
3. � Mild cardiomegaly.
4. � Endotracheal and nasogastric tubes remaining in normal position.
5. � Left-sided cardiac pacemaker in place.
CT Chest without IV contrast 11-27-2023:
Parenchymal lung opacities within the left lung as described, most likely representing pneumonia. There may also be a component of atelectasis. Radiographic follow-up is advised to assess for clearing and exclude underlying neoplasia.
Patchy groundglass pneumonitis in the right upper lobe, which is likely patchy pneumonia.
Confluent and band shaped parenchymal opacity within the right lower lung, most likely atelectasis, although a component of pneumonia in this region is also possible.
Possible trace amount of posterior left pleural fluid. No significant right pleural effusion.
Right adrenal gland mass, stable from CT of the abdomen and pelvis of June 23, 2023, and most likely an adenoma.
Subjective Data
-
Date of Service:
Date of Service: December 04, 2023
Chief Complaint: Pulmonary Follow Up (Pneumonia/chronic hypercapnic respiratory failure)
Subjective:
No new complaints.
Tolerating BiPAP
Denies significant increased phlegm production
Review of Systems
General: Fever (n)
Cardiopulmonary: Dyspnea (none at rest)
GI: Abdominal Pain (n) and Nausea (n)
Neuro: Headache
Objective Data
Data Reviewed
Vital Signs / I&O / Oxygen:
Vital Signs
Temp Pulse Resp BP Pulse Ox
98.2 F 67 20 139/71 92
12/04/23 11:05 12/04/23 11:05 12/04/23 11:05 12/04/23 11:05 12/04/23 11:05
Intake and Output
12/03/23 12/04/23 12/05/23
06:59 06:59 06:59
Intake Total 440 / 440 1290 / 1290
Output Total 380 / 380
Balance 60 / 60 1290 / 1290
SaO2 [CPAP/PSV] 98
SaO2 [ASV] 98
SaO2 [A/C] 97
SaO2 92
Nasal Cannula flow liters per 2
minute
Physical Exam
General: Comfortable
HEENT: Normocephalic and Anicteric
Cardiovascular: S1-S2 and Peripheral Edema (negative)
Respiratory: Wheeze (negative), Crackles (Bilaterally mainly in posterior lung sharma) and Non-Labored Respirations
GI: Soft, Non Distended, Non Tender, Normal Bowel Sounds and Other (abdominal obesity)
Neurology: Awake, Alert and Tremors (negative)
Skin: Warm and Dry
Labs/Micro/Reports
Microbiology
11/27/23 13:56 Blood/Venous Blood Culture - Final
No Growth - Final Report
11/27/23 12:23 Blood/Venous Blood Culture - Final
No Growth - Final Report
[2023-12-04] MEDS: NOVOLOG FLEXPEN-MODERATE RESISTANCE 3 UNITS SC (13:02)
[2023-12-04 16:33] LABS: Hematocrit 30.5 % (39.0-52.0); Hemoglobin 10.6 g/dL (13.0-18.0); Mean Corp Hgb Conc. 34.8 g/dL (33.0-37.0); Mean Corpuscular Hgb 30.7 pg (27.0-31.0); Mean Corpuscular Volume 88.4 fL (80.0-94.0); Mean Platelet Volume 12.6 fL (7.4-10.4); Platelet Count 161 10^3/uL (130-400); Red Blood Cell Count 3.45 10^6/uL (4.70-6.10); Red Cell Dist. Width 13.5 % (11.5-14.5)
[2023-12-04 16:52] LABS: Blood Urea Nitrogen 21 mg/dl (9-20); Calcium 8.5 mg/dl (8.4-10.2); Carbon Dioxide 31 mmol/L (22-30); Chloride 101 mmol/L (98-107); Estimated Creatinine Clearance 64 ml/min; Glucose 117 mg/dl (70-99); Potassium 4.2 mmol/L (3.5-5.1); Sodium 135 mmol/L (135-145); eGFR 57.29
--- NOTE | 2023-12-04 17:29 | CM ---
Discharge Plan of Care: Return to [facility], anticipate on 12/05/23.
[2023-12-04 17:32] LABS: Glucose - Point of Care 184 mg/dl (70-99)
[2023-12-04] MEDS: NOVOLOG FLEXPEN-MODERATE RESISTANCE 1 UNITS SC (17:52)
--- NOTE | 2023-12-04 18:35 | PTCARENOTE ---
Received Cpap machine from [facility] and currently in pt's room. No cell phone was sent from [facility] as per ICU.
[2023-12-04] MEDS: LIPITOR 10 MG PO (21:50)
[2023-12-04 21:58] LABS: Glucose - Point of Care 140 mg/dl (70-99)
[2023-12-05 00:03] VITALS: PULSE 2; PULSE 61
--- NOTE | 2023-12-05 00:27 | RESPNOTE ---
pt very concerned about not being able to get own cpap machine converted to bipap before discharge
[2023-12-05 03:24] VITALS: BP 154/71
[2023-12-05 04:58] LABS: Hematocrit 28.3 % (39.0-52.0); Hemoglobin 9.8 g/dL (13.0-18.0); Mean Corp Hgb Conc. 34.6 g/dL (33.0-37.0); Mean Corpuscular Hgb 30.8 pg (27.0-31.0); Platelet Count 126 10^3/uL (130-400); Red Blood Cell Count 3.18 10^6/uL (4.70-6.10); Red Cell Dist. Width 13.2 % (11.5-14.5); White Blood Cell Count 7.1 10^3/uL (4.8-10.8)
[2023-12-05 05:18] LABS: Blood Urea Nitrogen 25 mg/dl (9-20); Calcium 8.3 mg/dl (8.4-10.2); Carbon Dioxide 31 mmol/L (22-30); Chloride 103 mmol/L (98-107); Estimated Creatinine Clearance 69 ml/min; Glucose 129 mg/dl (70-99); Potassium 3.8 mmol/L (3.5-5.1); Sodium 135 mmol/L (135-145); eGFR > 60.00
[2023-12-05 05:49] VITALS: BMI 35.6
[2023-12-05 06:00] VITALS: BMI 35.6
[2023-12-05] MEDS: DUONEB 3 ML INH (07:30)
[2023-12-05] MEDS: ADVAIR HFA 45/21 MCG INHALER 2 PUFF INH (07:30)
[2023-12-05 07:31] LABS: Glucose - Point of Care 118 mg/dl (70-99)
[2023-12-05] MEDS: MUCOMYST 10% 2 ML INH (07:31)
[2023-12-05] MEDS: NOVOLOG FLEXPEN-MODERATE RESISTANCE SC (07:59)
[2023-12-05] MEDS: ROBITUSSIN 200 MG PO (08:06)
[2023-12-05] MEDS: AMOXIL 1000 MG PO (08:06)
[2023-12-05] MEDS: COLACE 100 MG PO (08:06)
[2023-12-05] MEDS: COREG 6.25 MG PO (08:07)
[2023-12-05] MEDS: ELIQUIS 5 MG PO (08:08)
[2023-12-05] MEDS: BUSPAR 10 MG PO (08:08)
[2023-12-05] MEDS: LASIX 40 MG PO (08:08)
[2023-12-05] MEDS: PROTONIX 40 MG PO (08:08)
[2023-12-05] MEDS: NEURONTIN 300 MG PO (08:08)
[2023-12-05] MEDS: REFRESH EYE DROPS (PF) 2 DROPS BOTH EYES (08:08)
[2023-12-05] MEDS: LEXAPRO 20 MG PO (08:08)
[2023-12-05 08:12] VITALS: BP 186/93
[2023-12-05] MEDS: MYCOSTATIN CREAM 1 APPLIC TOPICAL (08:19)
--- NOTE | 2023-12-05 10:02 | W.PN.HOSP.TC ---
Today's Communication/Plan
-
dc back to SNF
Assessment / Plan
Assessment / Plan
Assessment:
Acute hypoxemic and hypercapnic respiratory failure due to severe bilateral LL PNA (H. Influenzae)
- s/p extubation 12/01 afternoon
- Flu/COVID NEG.
- finish Amoxicillin 1 gm po q8h x 10 total days
- repeat CXR improving
- pulmonary/CC following
Hypotension:
- h/o essential HTN, home antihypertensives were held on admission.
- BP improved and Coreg was restarted. Cont with hold parameters.
NAOMI on CKD stage IIIb:
- improved on IVF, now stopped
Chronic HFpEF:
- echo 11/28/23 as above, notable for for mildly dilated LV with global hypokinesis and worsening EF to 50% compared to prior.
Paroxysmal A-fib: cont Eliquis.
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
DM2 with diabetic neuropathy: a1c 6.5%, cont Lantus/SSI/accu-checks.
Asthma and COPD: cont Advair.
EARL: uses CPAP originally, now transition to BIPAP.
Fall with left retroperitoneal hematoma in June 2023.
h/o back pain s/p spinal stimulator, laminectomies L4-L5.
Chronic constipation: Cont Miralax.
Depression: Cont Buspar/Lexapro.
Obesity due to excess calories: Affects all aspects of care, encourage weight loss.
DVT ppx: Eliquis
Code: Full
More than 30 minutes spent in discharge including
Final examination of the patient
Summarizing hospital stay
Instructions for continuing care to all relevant caregivers
Preparation of discharge records, prescriptions, and referral forms
Total time spent (in minutes): 42
Anticipated Discharge: Today
Subjective/Interval History
-
Date of Service: December 05, 2023
no overnight events
Objective Data
-
Labs:
Laboratory Results
12/05/23
04:17
WBC 7.1
Hgb 9.8 L
Hct 28.3 L
Plt Count 126 L D
Sodium 135
Potassium 3.8
Chloride 103
Carbon Dioxide 31 H
BUN 25 H
Creatinine 1.2
Glucose 129 H
Calcium 8.3 L
Vital Signs:
Vital Signs
Temp Pulse Resp BP Pulse Ox
97.4 F 63 15 186/93 96
12/05/23 08:12 12/05/23 08:12 12/05/23 08:12 12/05/23 08:12 12/05/23 08:12
I&O
12/04/23 12/05/23 12/06/23
06:59 06:59 06:59
Intake Total 1290 / 1290 1600 / 1600
Balance 1290 / 1290 1600 / 1600
Physical Exam
-
General: No Apparent Distress
HEENT: Normocephalic and Atraumatic
Respiratory: Negative Wheezes or Rales
Cardiac: Regular Rhythm and S1/S2
GI: Soft
Genito-urinary: No Costovertebral Tender
Neuro: AO x 3
Hematologic / Lymphatic: No Lymphadenopathy
Psych: Calm
Data Reviewed
-
Total Time Spent with Patient (in minutes): 42
Labs: Labs Reviewed by me
--- NOTE | 2023-12-05 10:40 | W.DS.TRANS ---
DC Summary - [employer]
-
Discharge Instructions:
Discharge Diagnosis/Procedures H. Influenzae pneumonia requiring intubation
Diet 2 Gram Sodium,Low Fat
Activity As tolerated
Bathing Restrictions None
Instructions:
Stand-Alone Forms:
Changes to Home Medications: No
Discharge Medications:
DC Medications w/original date entered in [facility]
atorvastatin 10 mg tablet (Lipitor) 10 mg PO HS High cholesterol 09/04/22
escitalopram oxalate 20 mg tablet (Lexapro) 20 mg PO DAILY Depression 09/04/22
fluticasone 100 mcg-salmeterol 50 mcg/dose blistr powdr for inhalation (Wixela Inhub) 1 inh inhalation R BID Lung/breathing issues 09/05/22
loperamide 2 mg tablet (Imodium A-D) 2 mg PO BID PRN diarrhea 09/05/22
furosemide 40 mg tablet 40 mg PO DAILY #0 tabs 09/10/22
apixaban 5 mg tablet (Eliquis) 5 mg PO BID Blood thinner #30 tabs 05/06/23
gabapentin 300 mg capsule 300 mg PO BID Pain 06/12/23
docusate sodium 100 mg capsule 100 mg PO BID #0 caps 06/24/23
polyethylene glycol 3350 17 gram oral powder packet (HealthyLax) 17 g PO DAILY #0 ea 06/24/23
acetaminophen 325 mg tablet (Tylenol) 650 mg PO Q4HPRN PRN mild pain 11/27/23
aluminum-mag hydroxide-simethicone 225 mg-200 mg-25 mg/5 mL oral susp 30 ml PO DAILYPRN PRN reflux 11/27/23
bisacodyl 10 mg rectal suppository (Dulcolax (bisacodyl)) 10 mg WI DAILYPRN PRN if no bm afte mom 11/27/23
buspirone 10 mg tablet 10 mg PO BID Mental Health/Anxiety 11/27/23
carboxymethylcellulose 0.5 %-glycerin 0.9 % eye drops (Refresh Optive) 2 drp BOTH EYES BID Eye Condition 11/27/23
carvedilol 3.125 mg tablet 6.25 mg PO BID Blood Pressure 11/27/23
hydralazine 25 mg tablet 25 mg PO TID Blood Pressure 11/27/23
magnesium hydroxide 400 mg/5 mL oral suspension (Milk of Magnesia) 2,400 mg PO DAILYPRN PRN constipation 11/27/23
ondansetron HCl 4 mg tablet 4 mg PO Q6HPRN PRN nausea 11/27/23
pantoprazole 40 mg tablet,delayed release (Protonix) 40 mg PO DAILY Gastrointestinal Issue 11/27/23
sennosides 8.6 mg tablet (senna) 17.2 mg PO BIDPRN PRN constipation 11/27/23
sodium phosphates 19 gram-7 gram/118 mL enema (Fleet Enema) 118 ml WI DAILYPRN PRN if no bm aftr dulcolax 11/27/23
valsartan 80 mg tablet 80 mg PO BID Blood Pressure 11/27/23
amoxicillin 500 mg capsule 1,000 mg PO TID #12 caps 12/05/23
guaifenesin 100 mg/5 mL oral liquid (Siltussin SA) 200 mg (10 mL) PO QID PRN Congestion #473 mL 12/05/23
ipratropium 0.5 mg-albuterol 3 mg (2.5 mg base)/3 mL nebulization soln 3 ml inhalation R TID #90 mL 12/05/23
nystatin 100,000 unit/gram topical cream 1 applic topical BID #30 grams 12/05/23
oxycodone 5 mg tablet 5 mg PO BID #6 tabs 12/05/23
Home Medication Changes
Pending Results: No
Total time spent discharging patient (in min): 41
--- NOTE | 2023-12-05 12:29 | CM ---
Patient has been medically cleared for discharge back to [facility] for LTC. Transport scheduled.
== END 2023-12-05 11:48 | DRG 208 ==
LOC: 2 NORTH 14:43
PROVIDERS: Clinical Nurse Specialist Family Health; Internal Medicine Critical Care Medicine; Nurse Practitioner Primary Care; Physician Assistant; Radiology Diagnostic Radiology; ADMITTING PHYSICIAN Internal Medicine; ATTENDING PHYSICIAN Internal Medicine; CONSULT PHYSICIAN Internal Medicine Critical Care Medicine; EMERGENCY PHYSICIAN Emergency Medicine; FAMILY PHYSICIAN Internal Medicine
PROC: 5A1945Z Respiratory Ventilation, 24-96 Consecutive Hours (ICD-10-PCS; 2023-11-27)
PROC: 0BH17EZ Insertion of Endotracheal Airway into Trachea, Via Natural or Artificial Opening (ICD-10-PCS; 2023-11-27)
DX: J10.08 Influenza due to other identified influenza virus with other specified pneumonia (principal); J96.01 Acute respiratory failure with hypoxia; J96.02 Acute respiratory failure with hypercapnia; N17.9 Acute kidney failure, unspecified; I13.0 Hypertensive heart and chronic kidney disease with heart failure and stage 1 through stage 4 chronic kidney disease, or unspecified chronic kidney disease; J44.0 Chronic obstructive pulmonary disease with (acute) lower respiratory infection; N18.32 Chronic kidney disease, stage 3b; E11.22 Type 2 diabetes mellitus with diabetic chronic kidney disease; I48.0 Paroxysmal atrial fibrillation; E11.40 Type 2 diabetes mellitus with diabetic neuropathy, unspecified; E11.65 Type 2 diabetes mellitus with hyperglycemia; G47.33 Obstructive sleep apnea (adult) (pediatric); E66.09 Other obesity due to excess calories; Z79.01 Long term (current) use of anticoagulants; Z95.0 Presence of cardiac pacemaker; Z68.35 Body mass index [BMI] 35.0-35.9, adult; Z79.4 Long term (current) use of insulin
CPT/HCPCS: 36600; 70450; 71045; 71046; 71250; 74018; 80048; 80053; 80202; 81003; 82805; 82962; 83036; 83605; 83880; 84132; 84145; 84478; 85025; 85027; 85610; 85730; 87040; 87070; 87077; 87185; 87205; 87502; 87641; 87811; 92526; 92610; 93005; 93306; 93971; 94002; 94003; 94640; 94660; 94667; 94668; 96365; 96375; 97163; 97167; 99291; 99292

== ENCOUNTER 2024-01-22 19:22 | Inpatient (IN) | payer OTHER, SELFPAY ==
[2024-01-22] VITALS (8 sets, daily range): BP systolic 113–147; BP diastolic 57–91; PULSE 2–89; BMI 32.9
[2024-01-22 13:20] LABS: % Basophils 0.7 % (0-2); % Eosinophils 0.6 % (0-6); % Immature Granulocytes 0.7 % (0-0.5); % Lymphocytes 21.2 % (20.5-51.1); % Monocytes 9.9 % (1.7-9.3); % Neutrophils 66.9 % (42.2-75.2); Absolute Basophils 0.1 10^3/uL (0-0.2); Absolute Immature Granulocytes 0.1 10^3/uL (0-0.05); Absolute Lymphocytes 1.5 10^3/uL (1.2-3.4); Absolute Monocytes 0.7 10^3/uL (0.1-0.6); Absolute Neutrophils 4.9 10^3/uL (1.4-6.5); Hematocrit 38.9 % (39.0-52.0); Hemoglobin 13.8 g/dL (13.0-18.0); Mean Corp Hgb Conc. 35.5 g/dL (33.0-37.0); Mean Corpuscular Hgb 30.8 pg (27.0-31.0); Mean Corpuscular Volume 86.8 fL (80.0-94.0); Nucleated Red Blood Cells % 0 % (-); Platelet Count 222 10^3/uL (130-400); Red Blood Cell Count 4.48 10^6/uL (4.70-6.10); Red Cell Dist. Width 14.1 % (11.5-14.5); White Blood Cell Count 7.3 10^3/uL (4.8-10.8)
[2024-01-22 13:35] LABS: COVID-19 Antigen Negative (Negative)
[2024-01-22 13:38] LABS: Blood Urea Nitrogen 27 mg/dl (9-20); Calcium 9.3 mg/dl (8.4-10.2); Carbon Dioxide 29 mmol/L (22-30); Chloride 103 mmol/L (98-107); Glucose 152 mg/dl (70-99); Sodium 136 mmol/L (135-145); eGFR 57.29
--- NOTE | 2024-01-22 15:09 | ED.GENMED ---
History of Present Illness
General
Chief Complaint: Cough
Source: patient
Exam Limitations: none
Time Seen by Provider: 01/22/24 15:04
Nursing documentation reviewed up to this point in time: agreed with
Travel History
Have you had any contact with someone who has COVID-19?: No
Do you have any symptoms of coronavirus? Fever > 100 degrees, chills, cough, shortness of breath, sore throat, loss of taste or smell, muscle aches, or headache?: Yes
Symptoms:: cough
History of Present Illness
History of Present Illness:
Patient is a 73-year-old male has a past medical history of paroxysmal A-fib on Eliquis chronic heart failure chronic kidney disease asthma/COPD on Advair depression recently admitted in December 04 for acute hypoxic hypercapnic respiratory failure
due to bilateral pneumonia and was intubated. Patient presents today complaining of weakness diarrhea cough wheezing shortness of breath subjective fevers. Patient reports he was recently discharged from [facility] on Friday and went home to
his own apartment on Friday but since then has been very weak not able to get around and not feeling well.
Past History
Past History
ED Past Medical History: Arrthythmia (Atrial fib), Asthma, CHF, COPD, HTN, IDDM and Other (Sleep apnea uses CPAP, )
ED Past Surgical History: Cardiac (Pacemaker), Orthopedic (Right hip surgery, Back surgery, ) and Tonsilectomy
Social History
Tobacco: Non-smoker
Alcohol: None
Personal: Single
Living: with family (Sister)
Family History
Family History: Unable to obtain
Phy Exam
General Physical Exam
General Presentation: no apparent distress
General age: appears stated age
General Skin: warm and dry
General Habitus: normal
General Mental: alert
General Hydration: dry mucous membranes
Course
Orders/Labs/Results
Orders:
Orders
01/22/24 13:03
COVID-19 Antigen Urgent
Source: Nasal Swab
INF RAPID [Influenza A+B Rapid Molecular] Urgent
CHAD Source: Nasal Swab
Specimen Description:
01/22/24 13:14
Basic Metabolic Panel Urgent
Complete Blood Count/With Diff Urgent
NT-proBNP Urgent
Comment: ADD ON
01/22/24 Dinner
Cholesterol Lowering
At Your Request: Full Participation
Cholesterol Lowering: Sodium, 2 Gram
1800 greta/15 CHO Diabetic
01/22/24 15:47
Chest [CR Chest - 2 Views ] Urgent
Comment:
Reason For Exam: sob
01/22/24 15:49
Albuterol Nebs [Ventolin Nebules] 2.5 mg INH R NOW STA
01/22/24 15:50
Add On- LAB Urgent
Tests Added?: cardiac BNP
01/22/24 18:02
Dexamethasone Sod Phosphate [Decadron] 10 mg IV NOW STA
01/22/24 18:05
0.9% Sodium Chloride 250 ml [Nss] 250 ml IV BOLUS
01/22/24 18:11
Electrocardiogram (*1) Stat
Reason for Study: Other
Other Reason for Exam: chest pain
EKG- Treatment ONCE
01/22/24 18:17
Potassium Urgent
01/22/24 18:45
Admit/Transfer Patient As Directed
Co-Sign Provider:
Level of Care: Inpatient admission
Assign to:: Telemetry
Physician / Group: bahay mae
Diagnosis: acute asthmatic bronchitis
Reason for Telemetry: Arrhythmia
Date to Stop Telemetry: 01/25/24
Time to Stop Telemetry: 11:00
Reason for Hospitalization: acute asthmatic bronchitis
Expected length of stay greater than two midnights?: Yes
ELOS- Estimated Length of Stay in days: 3
I certify the patient meets the requirements for IP care: Yes
Code Status As Directed
Resuscitation Status: Full Code
01/22/24 18:51
PULMONARY CONSULT Routine
Consulting Provider: Jhoan Kaba
Was physician already notified: Yes
Reason for consult: ashtmatic bronchitis
01/22/24 18:54
STOOL [C difficile Antigen & Toxins] Routine
CHAD Source: Feces/Stool
Specimen Description:
Stool Culture Routine
CHAD Source: Feces/Stool
Specimen Description:
Stool For WBC Routine
CHAD Source: Feces/Stool
Specimen Description:
01/22/24 19:52
Acetaminophen [Tylenol] 650 mg PO Q4HPRN PRN
Bisacodyl [Dulcolax] 10 mg RECTAL [id number] PRN
Dextrose 50%-Water [Dextrose 50% Syringe] 12.5 grams IV [id number] PRN
Docusate W/Senna [Senokot-S] 1 tablet PO BIDPRN PRN
Glucagon [GlucaGen] 1 mg IM PRN PRN
Polyethylene Glycol Powder [Miralax] 17 grams PO DAILYPRN PRN
Tramadol HCl [Ultram] 50 mg PO BIDPRN PRN
01/22/24 19:52
Activity As Directed
Activity Level: With Assistance
Bedside Glucose Monitoring As Directed
Frequency: AC&HS
Additional Instructions:: Change to q6h if pt on TPN, tube feeding or not eating
Intake/ Output As Directed
Frequency: Per unit guidelines
Vital Signs As Directed
Frequency: Per unit guidelines
Weight As Directed
Frequency: Daily
Pulse Ox/spot Check [RESP] Routine
Quantity: 1
Ot Eval And Treat Routine
Pt Eval And Treat Routine
Activity Level: As Tolerated
01/22/24 20:00
Apixaban [Eliquis] 5 mg PO BID
Buspirone [Buspar] 10 mg PO BID
Carvedilol [Coreg] 6.25 mg PO BID
Fluticasone/Salmeterol 45/21 [Advair Hfa 45/21 Mcg Inhaler] 2 puff INH R BID
Gabapentin [Neurontin] 300 mg PO BID
Ipratropium/Albuterol Sulfate [Duoneb] 3 ml INH R QID
Valsartan [Diovan] 80 mg PO BID
01/22/24 22:00
Atorvastatin [Lipitor] 10 mg PO HS
HydrALAZINE [Apresoline] 25 mg PO TID
Bipap [RESP] Routine
Patient to use own unit?: No
Inspiratory Pressure (cm H2O): 15
Expiratory Pressure (cm H2O): 5
01/22/24 22:25
UA Reflex to Culture [Urinalysis Reflex To Culture] Urgent
Date Specimen was Collected: 01/22/24
Time Specimen was Collected: 22:23
01/23/24 02:00
Dexamethasone Sod Phosphate [Decadron] 4 mg IV Q8H
01/23/24 07:30
Insulin Aspart Corrective Low [Novolog Flexpen-Low Resistance] See Protocol SC AC
01/23/24 08:00
Escitalopram Oxalate [Lexapro] 20 mg PO DAILY
Furosemide [Lasix] 40 mg PO DAILY
Pantoprazole [Protonix] 40 mg PO DAILY
01/23/24 10:12
Basic Metabolic Panel IN AM
Complete Blood Count/With Diff IN AM
01/24/24 06:00
Basic Metabolic Panel IN AM
Complete Blood Count/With Diff IN AM
01/25/24 06:00
Basic Metabolic Panel IN AM
Complete Blood Count/With Diff IN AM
01/25/24 11:00
DC Protocol for Telemetry ONCE
Abnormal Lab Results
01/22/24
13:14
RBC 4.48 L 10^6/uL
(4.70-6.10)
Hct 38.9 L %
(39.0-52.0)
MPV 12.0 H fL
(7.4-10.4)
Abs Immat Gran (auto) 0.1 H 10^3/uL
(0-0.05)
Absolute Monos (auto) 0.7 H 10^3/uL
(0.1-0.6)
Immature Gran % 0.7 H %
(0-0.5)
Monocytes % 9.9 H %
(1.7-9.3)
BUN 27 H mg/dl
(9-20)
Glucose 152 H mg/dl
(70-99)
01/22/24 13:14
01/22/24 18:17
Vital Signs
Initial and Last Documented VS:
Initial Vital Signs
Temp Pulse Resp BP Pulse Ox
98.9 F 98 18 130/86 92
01/22/24 12:52 01/22/24 12:52 01/22/24 12:52 01/22/24 12:52 01/22/24 12:52
Last Documented Vital Signs
Temp Pulse Resp BP Pulse Ox
97.7 F 76 20 154/82 93
01/23/24 17:44 01/23/24 20:33 01/23/24 20:33 01/23/24 20:04 01/23/24 20:33
MDM/Problems Addressed
Differential Diagnosis Includes:
Not limited to viral syndrome, COVID, influenza, dehydration, CHF, COPD, electrolyte abnormality
MDM/Problems Addressed:
73 Y male presented to the ER for evaluation. Patient recently was in rehab discharged to an apartment on Friday but complains of feeling very weak cough chest tightness nausea vomiting diarrhea. He does have a history of COPD and on arrival has
some mild expiratory wheezing.
He complained of subjective fevers but was afebrile here with a normal white count chest x-ray done no acute findings consistent with pneumonia. X-ray reviewed with ED physician. Patient was given a nebulizer treatment here with steroids. Will
check urine BUN elevated at 27 however BNP also elevated we will hold off on fluids at this time. Will require admission likely COPD, viral syndrome, weakness. COPD CHF A-fib on anticoagulation
Chronic conditions affecting care:
afib on anticoagulation(), history of CHF on diuretics
*Critical Care Note
Total Time (30-74mins, 75-104mins- exclusive of procedures): Not Applicable
ED Attending Note
-
Portions of this chart may have been created with voice recognition software.� Occasional wrong word or��sound alike� substitutions may have occurred due to the inherent limitations of voice recognition software.
Discharge Plan
Departure
Patient Disposition: Admit
Date of Disposition: 01/22/24
Time of Disposition: 18:16
Admit to: Telemetry
Admit to doctor: hospitalist
Presentation/result/management discussed w/ accepting MD/DO: Hospitalist
Patient with high blood pressure during this ER visit?: Yes
Condition: Fair
Covid-19: Negative COVID-19
Discharge Problem:
Weakness, copd exacerbation
Interventions
Interventions:
*Risk Screen - Suicide Last Done: 01/22/24 16:10
*General Assessment Last Done: 01/22/24 16:10
*Neglect/Abuse Screening Last Done: 01/22/24 12:52
ED- Fall Risk Assessment Last Done: 01/23/24 17:02
*ED COVID-19 Vaccine History Last Done: 01/22/24 12:52
*Nursing Disposition Last Done: 01/23/24 17:02
ED- Pulmonary Assessment Last Done: 01/22/24 16:13
Discharge Date and Time
Discharge Date/Time: 01/23/24 17:03
[2024-01-22 16:20] LABS: NT-proBNP 8130 pg/ml
[2024-01-22] MEDS: VENTOLIN NEBULES 2.5 MG INH (16:22)
[2024-01-22] MEDS: DECADRON 10 MG IV (18:20)
--- NOTE | 2024-01-22 18:21 | HPS.HSE ---
Family Physician
-
Family Physician: Enrico Mar MD
Chief Complaint
-
Wheezing, productive cough, shortness of breath, nausea, diarrhea x 3 days
History of Present Illness
73-year-old male complaining of productive yellow cough, wheezing, shortness of breath, nausea, diarrhea x 3 days with subjective fevers. He was discharged from [facility] on Friday 3 days ago 01/19/2024 to his apartment but has not been
able to get around. He denies headache, sore throat, chest pain, palpitations, abdominal pain, vomiting, urinary symptoms. He had recent admission to 11/27/23- 12/05/23 for hypoxic/hypercapnic respiratory failure requiring brief episode of intubation
x 4 days, broad-spectrum antibiotics for haemophilus influenza respiratory cultures he completed 9-day course of amoxicillin was sent to [facility] on 2 L of oxygen, but is no longer on. He has past medical history of paroxysmal A-fib on Eliquis, chronic
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
constipation, depression, obesity
Medical History
Past Medical History
Past Medical History: Reports Other
Additional Past Medical History:
Hypoxic respiratory failure requiring intubation November 2023 with respiratory culture haemophilus influenza
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
Paroxysmal atrial fibrillation
Combined diastolic/systolic CHF
COPD
Asthma
Sleep apnea
HTN
DM2-diet controlled
left hip pain with ambulatory dysfunction
chronic back pain
chronic constipation
left retroperitoneal hematoma June 2023 with blood loss anemia
Past Surgical History: Reports Other
Additional Past Surgical History:
Pacemaker�third-degree heart block
Right hip surgery
L4-L5 laminectomy
Tonsillectomy
Social History
Tobacco: Non-smoker
Alcohol: None
Drug: None
Personal: Single
Living: Alone (Apartment)
Employment: Retired
Family History
Family History: Unable to Obtain
Allergies / Home Medications
Allergies reflects when Allergies were last updated in [employer].
Home Medications with original date entered in [employer]
Allergy/Medication List:
Allergies
Allergy/AdvReac Type Severity Reaction Status Date / Time
No Known Allergies Allergy Verified 05/21/23 11:51
Home Medications
atorvastatin 10 mg tablet (Lipitor) 10 mg PO HS High cholesterol 09/04/22
escitalopram oxalate 20 mg tablet (Lexapro) 20 mg PO DAILY Depression 09/04/22
fluticasone 100 mcg-salmeterol 50 mcg/dose blistr powdr for inhalation (Wixela Inhub) 1 inh inhalation R BID Lung/breathing issues 09/05/22
furosemide 40 mg tablet 40 mg PO DAILY #0 tabs 09/10/22
apixaban 5 mg tablet (Eliquis) 5 mg PO BID Blood thinner #30 tabs 05/06/23
gabapentin 300 mg capsule 300 mg PO BID Pain 06/12/23
buspirone 10 mg tablet 10 mg PO BID Mental Health/Anxiety 11/27/23
carvedilol 3.125 mg tablet 6.25 mg PO BID Blood Pressure 11/27/23
hydralazine 25 mg tablet 25 mg PO TID Blood Pressure 11/27/23
pantoprazole 40 mg tablet,delayed release (Protonix) 40 mg PO DAILY Gastrointestinal Issue 11/27/23
valsartan 80 mg tablet 80 mg PO BID Blood Pressure 11/27/23
polyethylene glycol 3350 17 gram oral powder packet (Miralax) 17 g PO DAILYPRN PRN constipation 01/22/24
tramadol 50 mg tablet 50 mg PO BIDPRN PRN moderate pains 01/22/24
Review of Systems
-
History Source: Patient
A 12 point ROS was completed and negative except as noted: Yes
Constitutional: Reports Fatigue; Denies Fever or Chills
EENT: Denies Sore Throat or Runny Nose
Respiratory: Reports Cough (Productive yellow in color) and Trouble Breathing (Shortness of breath, GODDARD)
Cardiac: Denies Chest Pain, Diaphoresis, Palpitations or Syncope
Abdomen/GI: Reports Nausea and Diarrhea (X 3 days); Denies Abdominal Pain, Vomiting, Constipated, Bloody Stools or Black Stools
: Denies Dysuria, Frequency, Flank Pain, Incontinence or Difficulty Voiding
Musculoskeletal: Denies Joint Pain or Edema
Skin: Denies Itching or Rash
Neurological: Reports Weakness (Generalized); Denies Dizzy or Headache
Endocrine: Reports No Symptoms
Hematologic/Lymphatic: Reports No Symptoms
Psych: Reports Calm
Physical Exam
Vital Signs
Vital Signs
Temp Pulse Resp BP Pulse Ox
98.9 F 98 18 130/86 96
01/22/24 12:52 01/22/24 12:52 01/22/24 12:52 01/22/24 12:52 01/22/24 16:13
Physical Exam
General: Conversant; No Pain, Fever or Chills
HEENT: NormoCephalic, Anicteric, Moist mucous membranes, PERRLA, [place] Conjunctivae and No Ptosis
Respiratory: Wheezes (Expiratory bilaterally throughout both lung sharma); No Rales or Rhonchi
Cardiac: S1/S2 and Regular Rhythm; No Murmur, Rub, Gallop or Peripheral Edema
GI: Soft, Non Tender, Non Distended, Normal Bowel Sounds and No Hepatosplenomegaly
Rectal: Deferred by Provider
Genito-urinary: Deferred by me
Musculoskeletal: No Clubbing, No Cyanosis and No Edema
Skin: Warm and Dry; No Rash
Neuro: AO x 3, No Motor Deficits, Nonfocal/grossly intact, Cranial Nerves Intact and No Sensory Deficits; No Slurred Speech, Facial Droop or Tremors
Psych: Calm
Laboratory Results
-
01/22/24 13:14
Laboratory Results
Total Bilirubin Cancelled 01/22/24 13:14
AST Cancelled 01/22/24 13:14
ALT Cancelled 01/22/24 13:14
Alkaline Phosphatase Cancelled 01/22/24 13:14
Impression/Plan
-
Impression/plan:
Inpatient telemetry
#Acute asthmatic bronchitis
COVID/flu negative
98.9, 130/86, 96% RA
-IV Decadron 4 mg every 8 hours
-Consult pulmonary
-DuoNebs scheduled and as needed
PT/OT/registered nurse hh case manager consult
#Reported diarrhea x 3 days
-If patient has diarrhea check stool WBC, stool culture, C. difficile
#Chronic CHF�combined/cardiomyopathy
BNP 8130, weight 110 kg <115 kg on 12/05/2023
I/O, daily weights
#COPD Hx no acute exacerbation
-Continue Wixela or equivalent
#HTN-benign
-Continue hydralazine, Coreg, valsartan
#Hx haemophilus influenza positive endotracheal source 11/27/2023
#Hx of hypoxic hypercapnic respiratory failure requiring 4 days intubation
-Completed course of broad-spectrum antibiotics, 9-day course of amoxicillin
#DM2-diet controlled
HgbA1c 6.10 November 2023
#CKD 3B
Creat 1.3 follow BMP
#HLD
-Continue atorvastatin 10 mg at bedtime
#Permanent Hnmmpoxym-Ksguo-lnsbrt heart block status post
#Pulmonary HTN
#Paroxysmal atrial fibrillation
-Continue Eliquis 5 mg twice daily, carvedilol 6.25 mg twice daily
#Sleep apnea
-On current BiPAP unclear settings was on prior CPAP setting 9
#Anxiety
-Continue Lexapro, BuSpar
#Chronic back pain
-Continue gabapentin 300 mg twice daily, tramadol 50 mg twice daily as needed
Obesity due to excess calorie consumption�BMI 32.9 kg
Weight loss recommended, healthy heart diet watch carbohydrates
Other PMH:
Left hip pain with Chronic ambulatory dysfunction
Chronic constipation-stool softeners
Left retroperitoneal bleed with hemorrhagic shock June 2023
DVT prophylaxis
Continue CH[facility] C[employer] SPECIALIST Eliquis 5 mg twice daily
Full code
--- NOTE | 2024-01-22 18:35 | PHANOTE ---
med rec note- patient does not know his medication and does not care for himself, he said his sister does most of given him his medication and helping. he stated that none of his medication changed his he left the residential couple days ago, but
amoxicillin 500mg tid with a on the list with a started date of 12/05/23 #12. he sated he does not have a Nebulizer or treatment meds for it. and does not recall if he has an inhaler.
--- NOTE | 2024-01-22 18:40 | W.PN.UPDATE ---
Update Note
Progress Note Update
Seen and examined by me independently in collaboration with the nurse practitioner Blanka.
Past medical history/social history/medication/allergies reviewed.
Lab data and imaging data reviewed.
Patient presents with progressive cough which he describes as bronchial cough. Associated phlegm which is mostly yellow in color. He started become short of breath with exertion and sometimes at rest. No orthopnea. No leg edema. Denies any
chest pain. He has pain in his abdomen from coughing.
He has got audible wheeze as well as expiratory wheeze on auscultation. No JVD. Trace lower extremity edema. His weight is lower than recent hospital stay( elevated BNP noted). Noted to have normal EF with LVH. No evidence of pneumonia.
Clinically sounds like asthma exacerbation. Start on steroids and nebulizers. Consult pulmonary.
Continue with his daily Lasix and home medication.
Follow weights closely.
[2024-01-22 18:44] LABS: Potassium 4.4 mmol/L (3.5-5.1)
[2024-01-22] MEDS: ADVAIR HFA 45/21 MCG INHALER 2 PUFF INH (21:05)
[2024-01-22] MEDS: DUONEB 3 ML INH (21:05)
[2024-01-22] MEDS: LIPITOR 10 MG PO (21:24)
[2024-01-22] MEDS: ELIQUIS 5 MG PO (21:24)
[2024-01-22] MEDS: NEURONTIN 300 MG PO (21:24)
[2024-01-22] MEDS: COREG 6.25 MG PO (21:25)
[2024-01-22] MEDS: DIOVAN 80 MG PO (21:25)
[2024-01-22 21:34] LABS: Glucose - Point of Care 225 mg/dl (70-99)
[2024-01-22] MEDS: TYLENOL 650 MG PO (21:46)
[2024-01-22] MEDS: APRESOLINE 25 MG PO (22:15)
[2024-01-22] MEDS: BUSPAR 10 MG PO (22:15)
[2024-01-22 22:41] LABS: Urine Albumin Trace (Neg - Trace); Urine Bilirubin Negative (Negative); Urine Character Clear (Clear); Urine Color Yellow; Urine Glucose Negative (Negative); Urine Ketone Negative (Negative); Urine Leukocyte Negative (Negative); Urine Nitrite Negative (Negative); Urine Occult Blood Negative (Negative); Urine Urobilinogen Negative (Neg - 1+)
[2024-01-23] VITALS (24 sets, daily range): BP systolic 93–154; BP diastolic 35–82; PULSE 2–85; BMI 32.7; BMI 33.0
[2024-01-23] MEDS: DECADRON 4 MG IV ×3 (01:49→16:51)
[2024-01-23 07:41] LABS: Glucose - Point of Care 240 mg/dl (70-99)
[2024-01-23] MEDS: ULTRAM 50 MG PO (07:45)
[2024-01-23] MEDS: NEURONTIN 300 MG PO ×2 (07:45→20:05)
[2024-01-23] MEDS: PROTONIX 40 MG PO (07:46)
[2024-01-23] MEDS: LEXAPRO 20 MG PO (07:46)
[2024-01-23] MEDS: APRESOLINE 25 MG PO ×3 (08:12→21:48)
[2024-01-23] MEDS: LASIX 40 MG PO (08:13)
[2024-01-23] MEDS: DIOVAN 80 MG PO ×2 (08:13→20:05)
[2024-01-23] MEDS: ELIQUIS 5 MG PO ×2 (08:13→20:06)
[2024-01-23] MEDS: NOVOLOG FLEXPEN-LOW RESISTANCE 2 UNITS SC ×2 (08:13→16:52)
[2024-01-23] MEDS: COREG 6.25 MG PO ×2 (08:13→20:05)
--- NOTE | 2024-01-23 09:43 | CON.PUL ---
Consultation
Consultation Request
Date/Time Consultation Requested: 01/22/2024 - 185
Date/Time Consultation Performed: 01/23/2024 - 939
Requesting Provider: LUCRETIA Edgar
Performing Provider: Rashel Rivas MD
Reason for Consultation: Asthmatic bronchitis
Medical History
-
Chief Complaint: SOB, wheezing and diarrhea x 3 days
History of Present Illness:
73-year-old male never smoker with past medical history of asthma with suspected COPD, EARL/OHS on nocturnal BiPAP, depression/anxiety and CAD who presents with cough, shortness of breath, abdominal discomfort with nausea/vomiting and diarrhea for
about 3 days. Significant vitals in the ER were SpO2 92% on room air and he was afebrile to 98.9 �F. Labs showed normal WBC of 7.3, eosinophils were 0, BUN 27, creatinine 1.3, glucose 152, proBNP elevated at 8130 (was 319 on 11/27/2023), urinalysis
was negative for evidence of UTI, COVID antigen was also negative. CXR was suggestive of left-sided pneumonia vs dense atelectasis. He was given nebulized albuterol + Decadron in the ER and admitted to the hospitalist service where he was started
on antibiotics. He has required between 0 and 2L/min since admission. Pulmonary service now consulted for additional management/recommendations.
Patient was seen in the ER and he was sitting in chair no acute distress. No diarrhea since admission. He currently feels okay breathing on room air, breathing comfortably. Still short of breath with exertion. He says that after he left his
correction that he went to his own apartment and was trying to live so low but he was unable to take care of himself due to severe shortness of breath with exertion and he was unable to bathe himself/do activities of daily living. He currently
denies chest pain, headache, abdominal pain, fevers or chills.
Of note patient follows with me in the [facility] office � last office visit on 01/08/2024 which was a post hospitalization visit. He was recently hospitalized from 11/2710/2023fter being intubated in the ER due to lethargy with hypoxia and suspected
hypercapnia. He was extubated 4 days later treated for multifocal pneumonia and sputum culture grew haemophilus influenza. He was started on BiPAP with sleep (changed from CPAP which he was doing at his correction prior to arrival), and in the
office he felt well but tired with persistent cough. He was taken Wixela at the time and still using his PAP at his correction. His plan was to leave his correction and go to a condo. Plan was also to repeat CT chest in several weeks as well
as PFTs prior to next visit in addition to 6MWT.
PMHx: History of pneumonia, ?COPD/asthma, chronic allergic conjunctivitis, EARL on BiPAP, CKD, depression, anxiety disorder
PSHx: Laminectomy, hip fracture repair, tonsillectomy, pacemaker implantation
Past Medical History
Past Medical History: Other (Above as per HPI)
Past Surgical History: Other (Above as per HPI)
Social History
Tobacco: Non-smoker
Alcohol: None
Drug: None
Family History
Family History: CAD (Mother), Diabetes (Follow), Hypertension (Father) and Other (Mother: CHF)
Allergies / Home Medications
Allergies
Allergy/AdvReac Type Severity Reaction Status Date / Time
No Known Allergies Allergy Verified 01/22/24 19:15
Home Medications
�Medication �Instructions �Recorded �Confirmed �Last Taken �Type
atorvastatin 10 mg tablet (Lipitor) 10 mg PO HS High cholesterol 09/04/22 01/22/24 01/21/24 History
escitalopram oxalate 20 mg tablet 20 mg PO DAILY Depression 09/04/22 01/22/24 01/22/24 History
(Lexapro)
fluticasone 100 mcg-salmeterol 50 1 inh inhalation R BID 09/05/22 01/22/24 01/21/24 History
mcg/dose blistr powdr for Lung/breathing issues
inhalation (Wixela Inhub)
furosemide 40 mg tablet 40 mg PO DAILY #0 tabs 12/06/22 04/18/24 04/18/24 Rx
apixaban 5 mg tablet (Eliquis) 5 mg PO BID Blood thinner #30 tabs 05/06/23 01/22/24 01/22/24 Rx
gabapentin 300 mg capsule 300 mg PO BID Pain 06/12/23 01/22/24 01/22/24 History
buspirone 10 mg tablet 10 mg PO BID Mental Health/Anxiety 11/27/23 01/22/24 01/22/24 History
carvedilol 3.125 mg tablet 6.25 mg PO BID Blood Pressure 11/27/23 01/22/24 01/22/24 History
hydralazine 25 mg tablet 25 mg PO TID Blood Pressure 11/27/23 01/22/24 01/22/24 History
pantoprazole 40 mg tablet,delayed 40 mg PO DAILY Gastrointestinal 11/27/23 01/22/24 01/22/24 History
release (Protonix) Issue
valsartan 80 mg tablet 80 mg PO BID Blood Pressure 11/27/23 01/22/24 01/22/24 History
polyethylene glycol 3350 17 gram 17 g PO DAILYPRN PRN constipation 01/22/24 01/22/24 Unknown History
oral powder packet (Miralax)
tramadol 50 mg tablet 50 mg PO BIDPRN PRN moderate pains 01/22/24 01/22/24 Unknown History
Review of Systems
-
History Source: Patient
All other systems: Negative unless noted
Vitals / Labs / Diagnostic Testing
Vital Signs
Temp Pulse Resp BP Pulse Ox
98.2 F 64 18 139/72 92
01/23/24 07:58 01/23/24 10:07 01/23/24 10:07 01/23/24 08:12 01/23/24 07:58
Lab Data
01/23/24 10:12
01/23/24 10:12
Microbiology
01/22/24 13:03 Nasal Swab Influenza Types A & B (RAJ) - Final
Negative for Influenza A & B, NAAT
Negative results must be combined with clinical observations
and patient history.
Nucleic Acid Amplification test (NAAT)performed on the
[employer] NOW platform.
Diagnostic Testing:
Physical Exam
-
HEENT: Normocephalic and Anicteric
Cardiovascular: S1/S2 and Peripheral Edema (trace ILIANA b/l)
Respiratory: Wheeze (Negative), Rales (Negative), Rhonchi (Bibasilar (L >R)), Non-Labored Respirations and Other (Turbulent airflow appreciated bilaterally)
GI: Soft, Non Tender, Normal Bowel Sounds and Other (Abdominal obesity)
Neurology: AO x 3 and Tremors (Negative)
Skin: Warm and Dry
General: Comfortable and Chills (Negative)
Assessment
-
Assessment: 73-year-old male never smoker with past medical history of asthma with suspected COPD, EARL/OHS on nocturnal BiPAP, depression/anxiety and CAD who presents with cough, shortness of breath, abdominal discomfort with nausea/vomiting and
diarrhea for about 3 days. Significant vitals in the ER were SpO2 92% on room air and he was afebrile to 98.9 �F. Labs showed normal WBC of 7.3, eosinophils were 0, BUN 27, creatinine 1.3, glucose 152, proBNP elevated at 8130 (was 319 on
11/27/2023), urinalysis was negative for evidence of UTI, COVID antigen was also negative. CXR was suggestive of left-sided pneumonia vs dense atelectasis. He was given nebulized albuterol + Decadron in the ER and admitted to the hospitalist
service where he was started on antibiotics. He has required between 0 and 2L/min since admission. Pulmonary service now consulted for additional management/recommendations.
Chronic conditions PRN PHYSICAL THERAPIST: History of pneumonia, ?COPD/asthma, chronic allergic conjunctivitis, EARL on BiPAP, CKD, depression, anxiety disorder, history of retroperitoneal hematoma c/b hemorrhagic shock (06/2023), right adrenal mass stable compared to
June 2023, recurrent falls/ambulatory dysfunction, chronic A-fib on Eliquis, hypertension/hyperlipidemia, DM type II, history of combined systolic and diastolic heart failure, third-degree heart block s/p PPM, EARL on CPAP at 9 cmH2O, chronic
constipation, cholelithiasis, spinal stimulator
Impression:
#Acute hypoxic respiratory failure due to suspected left-sided HAP with ADHF (markedly elevated pro-BNP compared to prior values) with suspected asthma exacerbation
#Left-sided HAP
#Hyperglycemia
#Diarrhea
#EARL/OHS on nocturnal BiPAP
#DM type II
#Hx of CHB s/p PPM
#A-fib on Eliquis
Plan:
- Continue Decadron and wean as tolerated � currently on 4 mg IV q8hr
- Continue with LABA/ICS with Advair 45/21mcg (rinse mouth afterwards)
- Currently on rocephin and doxy - considering his recent hospitalization, would cover Pseudomonas and check blood and sputum Cx, as well as urine antigens for legionella + Strep PNA
- Check MRSA swab and if negative then would change dxy to zithromax for coverage of atypical pathogens and anti-inflammatory effect
- Continue nocturnal BiPAP and can use during day if needed
- Considering pt has suspected PNA, would aim to keep net neutral for first 24-48 hrs, then would diurese more aggressively
- Maintain SpO2 >90-94% with supplemental O2 as needed
- Incentive spirometer
- Replete electrolytes with K>4, Mg>2
- Maintain euglycemia with goal BG >100 and <180
- prn nebulized bronchodilators
- DVT ppx: Eliquis
Pulmonary service will continue to follow along.
Total time spent today was 75 minutes for this encounter. Time includes reviewing laboratory test/imaging results, reviewing pertinent medical records, obtaining and reviewing medical history, performing an appropriate exam, ordering medications,
tests and procedures. Time also includes documentation of this encounter, coordinating patient care and communicating with other healthcare professionals. Total time does not include separately billed tests performed on this date of service.
Data:
CXR 01-22-2024:
1. Moderate-sized dense airspace consolidation in the posterior basilar segment of the left lower lobe. Diagnostic possibilities are (1) chronic or recurrent pneumonia or (2) dense atelectasis.
2. Severe elevation of the right hemidiaphragm which appears unchanged.
3. Mild cardiomegaly.
4. Left-sided cardiac pacemaker in place.
[2024-01-23] MEDS: ADVAIR HFA 45/21 MCG INHALER 2 PUFF INH ×2 (10:00→20:28)
[2024-01-23] MEDS: DUONEB 3 ML INH ×4 (10:00→20:28)
--- NOTE | 2024-01-23 10:14 | CM ---
Addendum entered by Ros Garcia RN 01/23/24 15:37:
CM received call from Kristal at [facility]. As per her discussions with [facility], patient had planned to to be LTC at . The facility found out that patient has a LTC policy. was requesting that the LTC policy be used to retro pay for his time
at . Patient and sister were not in agreement with that plan therefore patient was discharged to an apartment. Further, the LTC policy is paying patient's sister to stay with patient 9-5 as a caregiver. As per Kristal, sister was not available during
that time while Chaya was in the home.
Addendum entered by Ros Garcia RN 01/23/24 15:31:
CM confirmed that patient has been at [facility], [facility].
Addendum entered by Ros Garcia RN 01/23/24 15:27:
As per Portia at [facility], he was at for almost 6 months. He was abusive verbally to staff his entire stay. Social work/personal financial planner did feel that he cannot live on his own, but assisted him in finding the apartment he currently lives
in now. He was previously living with his sister, but was not able to return there at discharge.
Addendum entered by Ros Garcia RN 01/23/24 13:42:
[facility] will not accept back.
Original Note:
CM reviewed medical records. Patient is well known to this CM. NILDA spoke with SEGUNDO Giraldopractice physician from [facility] regarding patient's functional status at home. Field RN and PT feel that patient at this [facility] requires 24 hour supervision. Patient is
wheelchair bound and unable to safely transfer. Patient's sister is providing support, but is unable to provide 24 hour supervision. Chaya RN recommended home health aid services. Patient and sister declined services.
CM will plan for additional SNF stay.
[2024-01-23 10:23] LABS: % Basophils 0.2 % (0-2); % Lymphocytes 19.3 % (20.5-51.1); % Monocytes 5.6 % (1.7-9.3); % Neutrophils 73.9 % (42.2-75.2); Absolute Immature Granulocytes 0.1 10^3/uL (0-0.05); Absolute Monocytes 0.3 10^3/uL (0.1-0.6); Absolute Neutrophils 3.8 10^3/uL (1.4-6.5); Hematocrit 34.3 % (39.0-52.0); Hemoglobin 11.8 g/dL (13.0-18.0); Mean Corp Hgb Conc. 34.4 g/dL (33.0-37.0); Nucleated Red Blood Cells % 0 % (-); Platelet Count 166 10^3/uL (130-400); Red Blood Cell Count 3.81 10^6/uL (4.70-6.10); Red Cell Dist. Width 13.9 % (11.5-14.5); White Blood Cell Count 5.2 10^3/uL (4.8-10.8)
[2024-01-23 10:36] LABS: Blood Urea Nitrogen 31 mg/dl (9-20); Calcium 9.1 mg/dl (8.4-10.2); Carbon Dioxide 28 mmol/L (22-30); Chloride 101 mmol/L (98-107); Estimated Creatinine Clearance 58 ml/min; Glucose 225 mg/dl (70-99); Potassium 4.1 mmol/L (3.5-5.1); Sodium 137 mmol/L (135-145); eGFR 52.41
[2024-01-23 11:31] LABS: Glucose - Point of Care 261 mg/dl (70-99)
[2024-01-23] MEDS: NOVOLOG FLEXPEN-LOW RESISTANCE 3 UNITS SC (11:33)
[2024-01-23] MEDS: BUSPAR 10 MG PO ×2 (11:36→20:06)
[2024-01-23 11:47] LABS: Hepatitis C Antibody Negative (Negative)
--- NOTE | 2024-01-23 11:59 | W.PN.HOSP.TC ---
Today's Communication/Plan
-
add rocephin/doxy
cont steroids/nebs
await pulm
Assessment / Plan
Assessment / Plan
pt is a 73 year old male
Acute asthmatic bronchitis--likely due to pna--cont steroids--add cough med--add rocephin/doxy--CXR with LLL pna--COVID/flu negative--await pulm input--cont nebs--consider CT scan--pna could be residual from previous episode?
Reported diarrhea x 3 days--If patient has diarrhea check stool WBC, stool culture, C. difficile
Chronic CHF�combined/cardiomyopathy--does not appear to be in acute exacerbation--I/O, daily weights
COPD Hx no acute exacerbation--Continue Wixela or equivalent
Essential HTN--Continue hydralazine, Coreg, valsartan
Hx haemophilus influenza positive endotracheal source 11/27/2023/Hx of hypoxic hypercapnic respiratory failure requiring 4 days intubation--Completed course of broad-spectrum antibiotics, 9-day course of amoxicillin
DM2-diet controlled--HgbA1c 6.10 November 2023
CKD 3B--Creat 1.3 follow BMP
HLD--Continue atorvastatin 10 mg at bedtime
Permanent Pacemaker--Third-degree heart block status post
Pulmonary HTN
Paroxysmal atrial fibrillation---Continue Eliquis 5 mg twice daily, carvedilol 6.25 mg twice daily
Sleep apnea--On current BiPAP unclear settings was on prior CPAP setting 9
Anxiety--Continue Lexapro, BuSpar
Chronic back pain--Continue gabapentin 300 mg twice daily, tramadol 50 mg twice daily as needed
Obesity due to excess calorie consumption�BMI 32.9 kg--Weight loss recommended, healthy heart diet watch carbohydrates
Left hip pain with Chronic ambulatory dysfunction
Chronic constipation-stool softeners
Left retroperitoneal bleed with hemorrhagic shock June 2023
DVT prophylaxis--Continue PATIENT CONSUMER MARKETER Eliquis 5 mg twice daily
Code status--Full code
Anticipated Discharge: > 48 hours
Subjective/Interval History
-
Date of Service: January 23, 2024
pt not feeling well--coughing
Objective Data
-
Labs:
Laboratory Results
01/23/24
10:12
WBC 5.2
Hgb 11.8 L
Hct 34.3 L
Plt Count 166 D
Sodium 137
Potassium 4.1
Chloride 101
Carbon Dioxide 28
BUN 31 H
Creatinine 1.4 H
Glucose 225 H
Calcium 9.1
Vital Signs:
max temp for 24 hours
01/22/24
22:58
Temp 100 F
Vital Signs
Temp Pulse Resp BP Pulse Ox
98.6 F 62 18 121/60 94
01/23/24 11:41 01/23/24 11:45 01/23/24 11:45 01/23/24 11:41 01/23/24 11:41
I&O
01/22/24 01/23/24 01/24/24
06:59 06:59 06:59
Output Total 200 / 200
Balance -200 / -200
Review of Systems
-
All other systems: Reviewed and negative
Respiratory: Reports Cough and Trouble Breathing
Physical Exam
-
General: Well Developed, Well Nourished and No Apparent Distress
HEENT: Normocephalic, Atraumatic and Oxygen
Respiratory: Wheezes and Decreased Breath Sounds (left lower lung field)
Cardiac: Regular Rhythm, S1/S2 and Murmur
GI: Soft, Nontender, Nondistended and Normal Bowel Sounds
Musculoskeletal: No Clubbing, No Cyanosis and No Edema
Skin: Warm
Neuro: Awake
Psych: Calm
[2024-01-23] MEDS: VIBRAMYCIN 100 MG PO ×2 (13:55→20:05)
[2024-01-23] MEDS: ROCEPHIN 1000 MG IV (13:55)
[2024-01-23] MEDS: STERILE WATER FOR INJECTION 10 ML IV (13:56)
[2024-01-23 16:47] LABS: Glucose - Point of Care 231 mg/dl (70-99)
--- NOTE | 2024-01-23 17:55 | PTCARENOTE ---
Pt received from ED and placed on tele monitor. Pt is in a-fib, v-paced in 70's. Pt denies pain and SOB, in bed conversing with PCT and nurse.
[2024-01-23] MEDS: HYCODAN SYRUP 5 ML PO (20:06)
[2024-01-23 20:30] LABS: Procalcitonin 0.08 ng/ml (0.0-0.25)
[2024-01-23 21:15] LABS: Glucose - Point of Care 264 mg/dl (70-99)
[2024-01-23] MEDS: LIPITOR 10 MG PO (21:48)
[2024-01-24] VITALS (8 sets, daily range): BP systolic 123–166; BP diastolic 65–79; PULSE 2–72; BMI 33.3
[2024-01-24] MEDS: MELATONIN 5 MG PO (01:11)
[2024-01-24] MEDS: DECADRON 4 MG IV ×2 (01:11→10:17)
[2024-01-24] MEDS: HYCODAN SYRUP 5 ML PO (01:11)
[2024-01-24] MEDS: DUONEB 3 ML INH ×4 (07:56→19:24)
[2024-01-24] MEDS: ADVAIR HFA 45/21 MCG INHALER 2 PUFF INH ×2 (07:57→19:24)
[2024-01-24 08:14] LABS: Glucose - Point of Care 203 mg/dl (70-99)
[2024-01-24 08:31] LABS: % Basophils 0.1 % (0-2); % Eosinophils 0.1 % (0-6); % Immature Granulocytes 0.7 % (0-0.5); % Lymphocytes 12.9 % (20.5-51.1); % Monocytes 4.3 % (1.7-9.3); % Neutrophils 81.9 % (42.2-75.2); Absolute Immature Granulocytes 0.1 10^3/uL (0-0.05); Absolute Lymphocytes 1.1 10^3/uL (1.2-3.4); Absolute Monocytes 0.4 10^3/uL (0.1-0.6); Hematocrit 32.4 % (39.0-52.0); Hemoglobin 11.3 g/dL (13.0-18.0); Mean Corp Hgb Conc. 34.9 g/dL (33.0-37.0); Mean Corpuscular Hgb 30.7 pg (27.0-31.0); Mean Platelet Volume 12.2 fL (7.4-10.4); Nucleated Red Blood Cells % 0 % (-); Platelet Count 149 10^3/uL (130-400); Red Blood Cell Count 3.68 10^6/uL (4.70-6.10); Red Cell Dist. Width 13.6 % (11.5-14.5); White Blood Cell Count 8.6 10^3/uL (4.8-10.8)
[2024-01-24] MEDS: VIBRAMYCIN 100 MG PO (08:31)
[2024-01-24] MEDS: NEURONTIN 300 MG PO ×2 (08:31→20:12)
[2024-01-24] MEDS: DIOVAN 80 MG PO ×2 (08:35→20:12)
[2024-01-24] MEDS: LEXAPRO 20 MG PO (08:35)
[2024-01-24] MEDS: PROTONIX 40 MG PO (08:36)
[2024-01-24] MEDS: LASIX 40 MG PO (08:37)
[2024-01-24] MEDS: ELIQUIS 5 MG PO ×2 (08:37→20:13)
[2024-01-24] MEDS: BUSPAR 10 MG PO ×2 (08:37→20:13)
[2024-01-24] MEDS: APRESOLINE 25 MG PO ×3 (08:38→22:24)
[2024-01-24] MEDS: COREG 6.25 MG PO ×2 (08:38→20:13)
[2024-01-24] MEDS: NOVOLOG FLEXPEN-LOW RESISTANCE 2 UNITS SC ×2 (08:38→13:26)
[2024-01-24 08:39] LABS: ALT (SGPT) 14 U/L (0-50); AST (SGOT) 22 U/L (17-59); Albumin 3.6 g/dl (3.5-5.0); Alkaline Phosphatase 52 U/L (38-126); Blood Urea Nitrogen 42 mg/dl (9-20); Calcium 9.1 mg/dl (8.4-10.2); Carbon Dioxide 24 mmol/L (22-30); Chloride 101 mmol/L (98-107); Estimated Creatinine Clearance 63 ml/min; Glucose 192 mg/dl (70-99); Magnesium 1.8 mg/dl (1.6-2.3); Potassium 4.6 mmol/L (3.5-5.1); Sodium 133 mmol/L (135-145); Total Bilirubin 0.6 mg/dl (0.2-1.3); Total Protein 6.7 g/dl (6.3-8.2); eGFR 57.29
[2024-01-24 11:31] LABS: Glucose - Point of Care 229 mg/dl (70-99)
[2024-01-24] MEDS: ROCEPHIN 1000 MG IV (13:25)
[2024-01-24] MEDS: STERILE WATER FOR INJECTION 10 ML IV (13:26)
--- NOTE | 2024-01-24 15:07 | W.PN.HOSP.TC ---
Today's Communication/Plan
-
change abx per pulm
cont PT/OT
pt NOT on O2
d/c planning--may need SNF
Assessment / Plan
Assessment / Plan
pt is a 73 year old male
Acute asthmatic bronchitis--likely due to pna--cont steroids--add cough med--change rocephin/doxy to zosyn/zithromax per pulm to cover for pseudomonas and atypicals (MRSA negative)--CXR with LLL pna--COVID/flu negative--apprec pulm input--cont
nebs--consider CT scan
Chronic CHF�combined/cardiomyopathy--does not appear to be in acute exacerbation--I/O, daily weights
COPD Hx no acute exacerbation--Continue Wixela or equivalent
Essential HTN--Continue hydralazine, Coreg, valsartan
Hx haemophilus influenza positive endotracheal source 11/27/2023/Hx of hypoxic hypercapnic respiratory failure requiring 4 days intubation--Completed course of broad-spectrum antibiotics, 9-day course of amoxicillin
DM2-diet controlled--HgbA1c 6.10 November 2023
CKD 3B--Creat 1.3 follow BMP
HLD--Continue atorvastatin 10 mg at bedtime
Permanent Pacemaker--Third-degree heart block status post
Pulmonary HTN
Paroxysmal atrial fibrillation---Continue Eliquis 5 mg twice daily, carvedilol 6.25 mg twice daily
Sleep apnea--On current BiPAP unclear settings was on prior CPAP setting 9
Anxiety--Continue Lexapro, BuSpar
Chronic back pain--Continue gabapentin 300 mg twice daily, tramadol 50 mg twice daily as needed
Obesity due to excess calorie consumption�BMI 32.9 kg--Weight loss recommended, healthy heart diet watch carbohydrates
Left hip pain with Chronic ambulatory dysfunction
Chronic constipation-stool softeners
Left retroperitoneal bleed with hemorrhagic shock June 2023
Reported diarrhea x 3 days--none here --cancel check stool WBC, stool culture, C. difficile
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
Code status--Full code
Anticipated Discharge: > 48 hours
Subjective/Interval History
-
Date of Service: January 24, 2024
pt states he is 'not good' but spent at least 10 minutes on the phone while I was waiting to speak and exam him
Objective Data
-
Labs:
Laboratory Results
01/24/24
08:04
WBC 8.6
Hgb 11.3 L
Hct 32.4 L
Plt Count 149
Sodium 133 L
Potassium 4.6
Chloride 101
Carbon Dioxide 24
BUN 42 H
Creatinine 1.3
Glucose 192 H
Calcium 9.1
Total Bilirubin 0.6
AST 22
ALT 14
Alkaline Phosphatase 52
Vital Signs:
max temp for 24 hours
01/24/24
11:00
Temp 98.4 F
Vital Signs
Temp Pulse Resp BP Pulse Ox
98.4 F 72 18 123/67 94
01/24/24 11:00 01/24/24 11:44 01/24/24 11:44 01/24/24 11:00 01/24/24 11:00
I&O
01/23/24 01/24/24 01/25/24
06:59 06:59 06:59
Intake Total 240 / 240
Output Total 200 / 200
Balance -200 / -200 240 / 240
Review of Systems
-
All other systems: Reviewed and negative
Respiratory: Reports Cough
Physical Exam
-
General: Well Developed, Well Nourished and No Apparent Distress
HEENT: Normocephalic and Atraumatic; Negative Oxygen
Respiratory: Rhonchi
Cardiac: Regular Rhythm and S1/S2; Negative Murmur
GI: Soft, Nontender, Nondistended and Normal Bowel Sounds
Musculoskeletal: No Clubbing and No Cyanosis; Negative No Edema (2+ LE edema bilaterally)
Neuro: Awake
Psych: Calm
--- NOTE | 2024-01-24 15:36 | W.PN.PUL3 ---
Today's Communication / Plan
-
Atbs
BDs
CS
Assessment
-
Assessment: 73-year-old male never smoker with past medical history of asthma with suspected COPD, EARL/OHS on nocturnal BiPAP, depression/anxiety and CAD who presents with cough, shortness of breath, abdominal discomfort with nausea/vomiting and
diarrhea for about 3 days. Significant vitals in the ER were SpO2 92% on room air and he was afebrile to 98.9 �F. Labs showed normal WBC of 7.3, eosinophils were 0, BUN 27, creatinine 1.3, glucose 152, proBNP elevated at 8130 (was 319 on
11/27/2023), urinalysis was negative for evidence of UTI, COVID antigen was also negative. CXR was suggestive of left-sided pneumonia vs dense atelectasis. He was given nebulized albuterol + Decadron in the ER and admitted to the hospitalist
service where he was started on antibiotics. He has required between 0 and 2L/min since admission. Pulmonary service now consulted for additional management/recommendations.
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
June 2023, recurrent falls/ambulatory dysfunction, chronic A-fib on Eliquis, hypertension/hyperlipidemia, DM type II, history of combined systolic and diastolic heart failure, third-degree heart block s/p PPM, EARL on CPAP at 9 cmH2O, chronic
constipation, cholelithiasis, spinal stimulator
Impression:
#Acute hypoxic respiratory failure due to suspected left-sided HAP with ADHF (markedly elevated pro-BNP compared to prior values) with suspected asthma exacerbation
#Left-sided HAP
#Hyperglycemia
#Diarrhea
#EARL/OHS on nocturnal BiPAP
#DM type II
#Hx of CHB s/p PPM
#A-fib on Eliquis
Nonsmoker
Plan:
- On Decadron and wean as tolerated � currently on 4 mg IV q8hr, change to prednisone 40 mg starting 01-24, taper by 10 mg q3 d to off
- Continue with LABA/ICS with Advair 45/21mcg (rinse mouth afterwards)
- Initially on ceftriaxone/doxy - considering his recent hospitalization, would cover Pseudomonas and check blood cx (pending) and sputum Cx (not collected), as well as urine antigens for legionella + Strep PNA (not collected)
- MRSA swab negative, changed doxy to zithromax for coverage of atypical pathogens and anti-inflammatory effect
Complete 5 d course of atbs and d/c
Noted normal PCT on 01-22
- Continue nocturnal BiPAP and can use during day if needed. Already on BPAP at home for last 2 m, reports good compliance
- Considering pt has suspected PNA, would aim to keep net neutral for first 24-48 hrs, then would diurese more aggressively
- Maintain SpO2 >90-94% with supplemental O2 as needed
- Incentive spirometry
- Replete electrolytes with K>4, Mg>2
- Maintain euglycemia with goal BG >100 and <180
- prn nebulized bronchodilators
- DVT ppx: Eliquis
Reassured, per record review he is progressing well, explained to him that he does not need to be completely recovered and asymptomatic to be d/c
Will follow with [facility], office information left in chart
D/w patient in presence of RT
Data:
CXR 01-22-2024:
1. Moderate-sized dense airspace consolidation in the posterior basilar segment of the left lower lobe. Diagnostic possibilities are (1) chronic or recurrent pneumonia or (2) dense atelectasis.
2. Severe elevation of the right hemidiaphragm which appears unchanged.
3. Mild cardiomegaly.
4. Left-sided cardiac pacemaker in place.
Subjective Data
-
Date of Service:
Date of Service: January 24, 2024
Chief Complaint: Pulmonary Follow Up
Subjective:
Multiple complaints, does not feel well enough to go home yet
Able to speak in almost full sentences
Pulse oximetry at 97% on room air after nebulization treatment during my visit
Uses BiPAP at home for the last 2 months
Review of Systems
General: Fever (n), Sweats (n) and Chills
Cardiopulmonary: Dyspnea, Cough, Wheezing (n) and Hemoptysis (n)
GI: Abdominal Pain (n), Nausea (n) and Vomiting (n)
Neuro: Weakness
Objective Data
Data Reviewed
Vital Signs / I&O / Oxygen:
Vital Signs
Temp Pulse Resp BP Pulse Ox
98.4 F 72 18 123/67 94
01/24/24 11:00 01/24/24 11:44 01/24/24 11:44 01/24/24 11:00 01/24/24 11:00
Intake and Output
01/23/24 01/24/24 01/25/24
06:59 06:59 06:59
Intake Total 240 / 240
Output Total 200 / 200
Balance -200 / -200 240 / 240
SaO2 94
Nasal Cannula flow liters per 2
minute
Physical Exam
General: Respiratory Distress (trace)
HEENT: Normocephalic and Moist Mucous Membranes
Cardiovascular: Regular Rhythm, Murmur (n) and Peripheral Edema (trace pedal)
Respiratory: Wheeze (n), Rhonchi, Accessory Resp Muscle Use and Stridor (n)
GI: Soft, Non Distended and Non Tender
Neurology: Awake, AO x 3 and No Motor Deficits
Skin: Warm
Labs/Micro/Reports
Lab Data
01/24/24 08:04
01/24/24 08:04
Microbiology
01/22/24 22:25 Nose MRSA Screen - Final
No Methicillin Resistant Staphylococcus aureus isolated.
01/22/24 13:03 Nasal Swab Influenza Types A & B (RAJ) - Final
Negative for Influenza A & B, NAAT
Negative results must be combined with clinical observations
and patient history.
Nucleic Acid Amplification test (NAAT)performed on the
[employer] platform.
[2024-01-24] MEDS: ZITHROMAX 500 MG PO (16:24)
[2024-01-24] MEDS: ZOSYN 50 IV ×2 (16:24→22:23)
[2024-01-24 16:27] LABS: Glucose - Point of Care 329 mg/dl (70-99)
[2024-01-24] MEDS: NOVOLOG FLEXPEN-LOW RESISTANCE 4 UNITS SC (16:28)
[2024-01-24 21:37] LABS: Glucose - Point of Care 202 mg/dl (70-99)
[2024-01-24] MEDS: LIPITOR 10 MG PO (22:24)
[2024-01-25] MEDS: ZOSYN 50 IV ×4 (03:10→20:56)
[2024-01-25] MEDS: DUONEB 3 ML INH ×5 (03:32→19:28)
[2024-01-25 03:37] VITALS: BP 155/69
[2024-01-25] MEDS: LASIX 20 MG IV (04:44)
[2024-01-25] MEDS: HYCODAN SYRUP 5 ML PO ×2 (04:44→22:50)
--- NOTE | 2024-01-25 04:45 | PTCARENOTE ---
Pt calls and complains of shortness of breath. POX 94% on RA. On auscultation rhonchi is heard throughout, pt sounds congested. DENSITOMETRIST Kristal notified. Duoneb x1 ordered and pt experienced some relief from the treatment. Soon after pt calls again and
complains that he is choking and cannot breath. POX 93% on RA. SUSANA Giraldo notified again. Lasix 20mg IV given and CXR ordered for AM.
[2024-01-25 06:00] VITALS: BMI 33.3
[2024-01-25 07:21] LABS: Glucose - Point of Care 225 mg/dl (70-99)
[2024-01-25] MEDS: ZITHROMAX 500 MG PO (07:38)
[2024-01-25] MEDS: NEURONTIN 300 MG PO ×2 (07:38→20:49)
[2024-01-25] MEDS: LEXAPRO 20 MG PO (07:39)
[2024-01-25] MEDS: DIOVAN 80 MG PO ×2 (07:39→20:49)
[2024-01-25] MEDS: LASIX 40 MG PO (07:39)
[2024-01-25] MEDS: BUSPAR 10 MG PO ×2 (07:40→20:49)
[2024-01-25] MEDS: APRESOLINE 25 MG PO ×3 (07:40→20:55)
[2024-01-25] MEDS: ELIQUIS 5 MG PO ×2 (07:40→20:49)
[2024-01-25] MEDS: PROTONIX 40 MG PO (07:40)
[2024-01-25] MEDS: COREG 6.25 MG PO ×2 (07:41→20:49)
[2024-01-25] MEDS: DELTASONE 40 MG PO (07:41)
[2024-01-25] MEDS: NOVOLOG FLEXPEN-LOW RESISTANCE 2 UNITS SC ×2 (07:42→12:17)
[2024-01-25 07:48] LABS: % Basophils 0.2 % (0-2); % Eosinophils 0.2 % (0-6); % Immature Granulocytes 0.9 % (0-0.5); % Lymphocytes 17.3 % (20.5-51.1); % Monocytes 6.2 % (1.7-9.3); % Neutrophils 75.2 % (42.2-75.2); Absolute Immature Granulocytes 0.1 10^3/uL (0-0.05); Absolute Lymphocytes 1.7 10^3/uL (1.2-3.4); Absolute Monocytes 0.6 10^3/uL (0.1-0.6); Absolute Neutrophils 7.5 10^3/uL (1.4-6.5); Hematocrit 32.2 % (39.0-52.0); Mean Corp Hgb Conc. 34.2 g/dL (33.0-37.0); Mean Corpuscular Hgb 30.1 pg (27.0-31.0); Mean Corpuscular Volume 88.2 fL (80.0-94.0); Mean Platelet Volume 12.5 fL (7.4-10.4); Nucleated Red Blood Cells % 0 % (-); Platelet Count 161 10^3/uL (130-400); Red Blood Cell Count 3.65 10^6/uL (4.70-6.10); Red Cell Dist. Width 13.7 % (11.5-14.5)
[2024-01-25 07:51] LABS: NT-proBNP 726 pg/ml
[2024-01-25] MEDS: ADVAIR HFA 45/21 MCG INHALER 2 PUFF INH ×2 (07:53→19:28)
[2024-01-25 07:59] VITALS: BP 139/71
[2024-01-25 08:11] LABS: Blood Urea Nitrogen 44 mg/dl (9-20); Calcium 8.9 mg/dl (8.4-10.2); Carbon Dioxide 28 mmol/L (22-30); Chloride 98 mmol/L (98-107); Estimated Creatinine Clearance 59 ml/min; Glucose 206 mg/dl (70-99); Magnesium 1.6 mg/dl (1.6-2.3); Sodium 130 mmol/L (135-145); eGFR 52.41
[2024-01-25 12:14] LABS: Glucose - Point of Care 237 mg/dl (70-99)
[2024-01-25 13:09] VITALS: BP 151/76
--- NOTE | 2024-01-25 14:38 | W.PN.HOSP.TC ---
Today's Communication/Plan
-
await pulm
consider CT scan
Assessment / Plan
Assessment / Plan
pt is a 73 year old male
Acute asthmatic bronchitis--likely due to pna--cont steroids--add cough med--change rocephin/doxy to zosyn/zithromax per pulm to cover for pseudomonas and atypicals (MRSA negative)--CXR with LLL pna--COVID/flu negative--apprec pulm input--cont
nebs--consider CT scan, pt states he is no better
Chronic CHF�combined/cardiomyopathy--does not appear to be in acute exacerbation--I/O, daily weights
COPD Hx with acute exacerbation--Continue Wixela or equivalent
Essential HTN--Continue hydralazine, Coreg, valsartan
Hx haemophilus influenza positive endotracheal source 11/27/2023/Hx of hypoxic hypercapnic respiratory failure requiring 4 days intubation--Completed course of broad-spectrum antibiotics, 9-day course of amoxicillin
DM2-diet controlled--HgbA1c 6.10 November 2023
CKD 3B--Creat 1.3 follow BMP
HLD--Continue atorvastatin 10 mg at bedtime
Permanent Pacemaker--Third-degree heart block status post
Pulmonary HTN
Paroxysmal atrial fibrillation---Continue Eliquis 5 mg twice daily, carvedilol 6.25 mg twice daily
Sleep apnea--On current BiPAP unclear settings was on prior CPAP setting 9
Anxiety--Continue Lexapro, BuSpar
Chronic back pain--Continue gabapentin 300 mg twice daily, tramadol 50 mg twice daily as needed
Obesity due to excess calorie consumption�BMI 32.9 kg--Weight loss recommended, healthy heart diet watch carbohydrates
Left hip pain with Chronic ambulatory dysfunction
Chronic constipation-stool softeners
Left retroperitoneal bleed with hemorrhagic shock June 2023
Reported diarrhea x 3 days--none here --cancel check stool WBC, stool culture, C. difficile
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
Code status--Full code
Anticipated Discharge: > 48 hours
Subjective/Interval History
-
Date of Service: January 25, 2024
pt had episode of coughing and could not catch his breath
Objective Data
-
Labs:
Laboratory Results
01/25/24
07:09
WBC 10.0
Hgb 11.0 L
Hct 32.2 L
Plt Count 161
Sodium 130 L
Potassium 4.0
Chloride 98
Carbon Dioxide 28
BUN 44 H
Creatinine 1.4 H
Glucose 206 H
Calcium 8.9
Vital Signs:
max temp for 24 hours
01/24/24
22:22
Temp 98.2 F
Vital Signs
Temp Pulse Resp BP Pulse Ox
97.7 F 61 16 151/76 95
01/25/24 13:09 01/25/24 13:09 01/25/24 13:09 01/25/24 13:09 01/25/24 13:09
I&O
01/24/24 01/25/24 01/26/24
06:59 06:59 06:59
Intake Total 240 / 240 530 / 530
Balance 240 / 240 530 / 530
Review of Systems
-
All other systems: Reviewed and negative
Respiratory: Reports Cough and Trouble Breathing
Physical Exam
-
General: Well Developed, Well Nourished, No Apparent Distress and Obese
HEENT: Normocephalic and Atraumatic
Respiratory: Wheezes and Rhonchi
Cardiac: Regular Rhythm and S1/S2; Negative Murmur
GI: Soft, Nontender, Nondistended and Normal Bowel Sounds
Musculoskeletal: No Clubbing, No Cyanosis and No Edema
Neuro: Awake
[2024-01-25 16:00] VITALS: BP 164/80
[2024-01-25 16:34] LABS: Glucose - Point of Care 354 mg/dl (70-99)
[2024-01-25] MEDS: NOVOLOG FLEXPEN-LOW RESISTANCE 5 UNITS SC (16:41)
--- NOTE | 2024-01-25 17:02 | W.PN.PUL3 ---
Today's Communication / Plan
-
Atbs
CS
IS
AC
Assessment
-
Assessment: 73-year-old male never smoker with past medical history of asthma with suspected COPD, EARL/OHS on nocturnal BiPAP, depression/anxiety and CAD who presents with cough, shortness of breath, abdominal discomfort with nausea/vomiting and
diarrhea for about 3 days. Significant vitals in the ER were SpO2 92% on room air and he was afebrile to 98.9 �F. Labs showed normal WBC of 7.3, eosinophils were 0, BUN 27, creatinine 1.3, glucose 152, proBNP elevated at 8130 (was 319 on
11/27/2023), urinalysis was negative for evidence of UTI, COVID antigen was also negative. CXR was suggestive of left-sided pneumonia vs dense atelectasis. He was given nebulized albuterol + Decadron in the ER and admitted to the hospitalist
service where he was started on antibiotics. He has required between 0 and 2L/min since admission. Pulmonary service now consulted for additional management/recommendations.
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
June 2023, recurrent falls/ambulatory dysfunction, chronic A-fib on Eliquis, hypertension/hyperlipidemia, DM type II, history of combined systolic and diastolic heart failure, third-degree heart block s/p PPM, EARL on CPAP at 9 cmH2O, chronic
constipation, cholelithiasis, spinal stimulator
Impression:
#Acute hypoxic respiratory failure due to suspected left-sided HAP with ADHF (markedly elevated pro-BNP compared to prior values) with suspected asthma exacerbation
#Left-sided HAP
#Hyperglycemia
#Diarrhea
#EARL/OHS on nocturnal BiPAP
#DM type II
#Hx of CHB s/p PPM
#A-fib on Eliquis
Nonsmoker
Plan:
- On Decadron till changed to prednisone 40 mg starting 01-24, taper by 10 mg q3 d to off
- Continue with LABA/ICS with Advair 45/21mcg (rinse mouth afterwards)
- Initially on ceftriaxone/doxy -
Blood cx (NTD) and sputum Cx (not collected), as well as urine antigens for legionella + Strep PNA (not collected)
- MRSA swab negative
Currently on zosyn/azithromycin po since 01-23
Complete 5 d course of atbs, evaluate response
Noted normal PCT on 01-22
- Continue nocturnal BiPAP and can use during day if needed. Already on BPAP at home for last 2 m, reports good compliance
TTE 11-28-23: LVEF 50% with mild global hypokinesia, normal DD (LVEF was 55-60% on Sep 2022)
Continue diuresis
F/u CXR 01-24 with no acute changes, no clear cut infiltrate to my eye, moderate elevation R diaphragm which is chronic since at least Jul 2020
No major events reported overnight in spite of multiple complaints from patient: Feels very weak, intermittent cough still occurs with some difficulty tolerating, he is concerned about the results of the repeat chest x-ray, he is concerned by the
father that he had a pneumonia in late November into intubation
Review of records indicated patient remains afebrile, he is on room air, he is not hypotensive, He does not present leukocytosis. Answered all his questions and reassured him, will follow closely. No current indication for chest CT at this juncture
- Incentive spirometry
- Replete electrolytes with K>4, Mg>2
- Maintain euglycemia with goal BG >100 and <180
- prn nebulized bronchodilators
- DVT ppx: Eliquis AC
Reassured, per record review he is progressing well, explained to him that he does not need to be completely recovered and asymptomatic to be d/c
Will follow with [facility], office information left in chart
D/w patient in presence of RT
Data:
CXR 01-22-2024:
1. Moderate-sized dense airspace consolidation in the posterior basilar segment of the left lower lobe. Diagnostic possibilities are (1) chronic or recurrent pneumonia or (2) dense atelectasis.
2. Severe elevation of the right hemidiaphragm which appears unchanged.
3. Mild cardiomegaly.
4. Left-sided cardiac pacemaker in place.
Subjective Data
-
Date of Service:
Date of Service: January 25, 2024
Chief Complaint: Pulmonary Follow Up
Subjective:
No major events reported overnight in spite of multiple complaints from patient: Feels very weak, intermittent cough still occurs with some difficulty tolerating, he is concerned about the results of the repeat chest x-ray, he is concerned by the
father that he had a pneumonia in late November into intubation
Review of records indicated patient remains afebrile, he is on room air, he is not hypotensive, He does not present leukocytosis
Review of Systems
General: Fever (n), Sweats (n), Chills and Satisfactory Appetite
Cardiopulmonary: Dyspnea (n), Cough, Sputum Production, Wheezing and Orthopnea (n)
GI: Abdominal Pain (n), Nausea (n) and Vomiting
Neuro: Weakness
Genitourinary: Hematuria (n)
Objective Data
Data Reviewed
Vital Signs / I&O / Oxygen:
Vital Signs
Temp Pulse Resp BP Pulse Ox
97.3 F 62 16 164/80 96
01/25/24 16:00 01/25/24 16:00 01/25/24 16:00 01/25/24 16:37 01/25/24 16:00
Intake and Output
01/24/24 01/25/24 01/26/24
06:59 06:59 06:59
Intake Total 240 / 240 530 / 530
Balance 240 / 240 530 / 530
SaO2 96
Nasal Cannula flow liters per 2
minute
Physical Exam
General: Respiratory Distress (trace)
HEENT: Normocephalic and Moist Mucous Membranes
Cardiovascular: Regular Rhythm, Murmur (n) and Peripheral Edema (trace pedal)
Respiratory: Wheeze (n), Rhonchi, Accessory Resp Muscle Use and Stridor (n)
GI: Soft, Non Distended, Non Tender and Normal Bowel Sounds
Neurology: Awake, AO x 3 and No Motor Deficits
Skin: Warm
Labs/Micro/Reports
Lab Data
01/25/24 07:09
01/25/24 07:09
Microbiology
01/23/24 19:38 Blood/Venous Blood Culture - Preliminary
No Growth in 24 hours- Final report to follow
01/22/24 22:25 Nose MRSA Screen - Final
No Methicillin Resistant Staphylococcus aureus isolated.
01/22/24 13:03 Nasal Swab Influenza Types A & B (RAJ) - Final
Negative for Influenza A & B, NAAT
Negative results must be combined with clinical observations
and patient history.
Nucleic Acid Amplification test (NAAT)performed on the
[employer] platform.
[2024-01-25] MEDS: LIPITOR 10 MG PO (20:55)
[2024-01-25 21:35] LABS: Glucose - Point of Care 314 mg/dl (70-99)
[2024-01-25] MEDS: XANAX 0.25 MG PO (22:50)
[2024-01-25 23:07] VITALS: PULSE 2; PULSE 66
[2024-01-25 23:18] VITALS: BP 118/66
[2024-01-26] VITALS (8 sets, daily range): BP systolic 119–163; BP diastolic 53–86; PULSE 2–73; O2SAT 93; BMI 32.9
[2024-01-26] MEDS: ZOSYN 50 IV ×4 (03:05→21:23)
[2024-01-26] MEDS: DUONEB 3 ML INH ×4 (07:54→19:59)
[2024-01-26] MEDS: ADVAIR HFA 45/21 MCG INHALER 2 PUFF INH (07:55)
[2024-01-26 08:14] LABS: Glucose - Point of Care 198 mg/dl (70-99)
[2024-01-26] MEDS: NEURONTIN 300 MG PO ×2 (08:29→19:43)
[2024-01-26] MEDS: ZITHROMAX 500 MG PO (08:29)
[2024-01-26] MEDS: DIOVAN 80 MG PO ×2 (08:30→19:43)
[2024-01-26] MEDS: PROTONIX 40 MG PO (08:30)
[2024-01-26] MEDS: NOVOLOG FLEXPEN-LOW RESISTANCE 1 UNITS SC (08:30)
[2024-01-26] MEDS: DELTASONE 40 MG PO (08:30)
[2024-01-26] MEDS: ELIQUIS 5 MG PO ×2 (08:30→19:44)
[2024-01-26] MEDS: LEXAPRO 20 MG PO (08:31)
[2024-01-26] MEDS: APRESOLINE 25 MG PO ×3 (08:31→21:23)
[2024-01-26] MEDS: BUSPAR 10 MG PO ×2 (08:31→19:43)
[2024-01-26] MEDS: LASIX 40 MG PO (08:31)
[2024-01-26] MEDS: COREG 6.25 MG PO ×2 (08:31→19:44)
[2024-01-26] MEDS: HYCODAN SYRUP 5 ML PO ×2 (08:47→21:23)
--- NOTE | 2024-01-26 09:30 | PTCARENOTE ---
01/25- Patient is anxious and states, 'I want you to come in every so often to say hi and see how I'm doing.' Advised we will come in to see how our patients are doing, however please understand on a [facility] Floor we have 5-6 patients, so we will
come in as often as we can, but I cannot guarantee the regularity if it is for a checkin with no immediate need. Patient stated, 'well Jose A was kind and caring and was in my room at least every 15 minutes checking on me.' I stated, 'I
acknowledge that, but in Critical Care, a Nurse has a 1:2 patient ratio on average, as opposed to [facility]. I absolutely do care about you and will check on you, but amongst other patients needs as well.' He stated, 'Fuck other patients. Fuck 'em.'
I stated that's inappropriate, and let's try to understand eachother a little better. He stated, 'what happened to you? You were so sweet earlier, and now you're giving me difficulty. I want Jose A back.' Advised I'm sorry he feels that way, and
again, I will absolutely try my best to come in to check on him with regularity, but I don't want to make false promises as to time expectations. At that time, CM came in, and patient waved me away and started talking to CM.
[2024-01-26 10:44] LABS: Hematocrit 34.7 % (39.0-52.0); Hemoglobin 12.2 g/dL (13.0-18.0); Mean Corp Hgb Conc. 35.2 g/dL (33.0-37.0); Mean Corpuscular Volume 88.1 fL (80.0-94.0); Mean Platelet Volume 12.3 fL (7.4-10.4); Platelet Count 163 10^3/uL (130-400); Red Blood Cell Count 3.94 10^6/uL (4.70-6.10); Red Cell Dist. Width 13.9 % (11.5-14.5)
--- NOTE | 2024-01-26 12:24 | CM ---
account manager sales representative reviewed patient's chart and met with patient and reviewed physical therapy recommendations and provided a list of Medicare.gov options for rehab placement. Physical therapy are recommending skilled rehab for patient. Patient has
selected [facility], [facility], [facility] and [facility], caseworker protective services will send referrals to all of these facilities.
Plan; Skilled placement referrals sent, patient will need Auth from [facility].
[2024-01-26 13:15] LABS: Glucose - Point of Care 343 mg/dl (70-99)
[2024-01-26] MEDS: NOVOLOG FLEXPEN-LOW RESISTANCE 4 UNITS SC (13:16)
[2024-01-26 13:20] LABS: Blood Urea Nitrogen 41 mg/dl (9-20); Calcium 9.3 mg/dl (8.4-10.2); Carbon Dioxide 27 mmol/L (22-30); Chloride 99 mmol/L (98-107); Estimated Creatinine Clearance 51 ml/min; Glucose 161 mg/dl (70-99); Magnesium 1.7 mg/dl (1.6-2.3); Sodium 137 mmol/L (135-145); eGFR 44.65
--- NOTE | 2024-01-26 14:08 | W.PN.HOSP.TC ---
Today's Communication/Plan
-
cont current management
await pulm input
Assessment / Plan
Assessment / Plan
pt is a 73 year old male
Acute asthmatic bronchitis--likely due to pna--cont steroids--add cough med--change rocephin/doxy to zosyn/zithromax per pulm to cover for pseudomonas and atypicals (MRSA negative)--CXR with LLL pna--COVID/flu negative--apprec pulm input--cont
nebs--consider CT scan, pt states he is no better, will defer to pulm
Chronic CHF�combined/cardiomyopathy--does not appear to be in acute exacerbation--I/O, daily weights
COPD Hx with acute exacerbation--Continue Wixela or equivalent
Essential HTN--Continue hydralazine, Coreg, valsartan
Hx haemophilus influenza positive endotracheal source 11/27/2023/Hx of hypoxic hypercapnic respiratory failure requiring 4 days intubation--Completed course of broad-spectrum antibiotics, 9-day course of amoxicillin
DM2-diet controlled--HgbA1c 6.10 November 2023
CKD 3B--Creat 1.3 follow BMP
HLD--Continue atorvastatin 10 mg at bedtime
Permanent Pacemaker--Third-degree heart block status post
Pulmonary HTN
Paroxysmal atrial fibrillation---Continue Eliquis 5 mg twice daily, carvedilol 6.25 mg twice daily
Sleep apnea--On current BiPAP unclear settings was on prior CPAP setting 9
Anxiety--Continue Lexapro, BuSpar
Chronic back pain--Continue gabapentin 300 mg twice daily, tramadol 50 mg twice daily as needed
Obesity due to excess calorie consumption�BMI 32.9 kg--Weight loss recommended, healthy heart diet watch carbohydrates
Left hip pain with Chronic ambulatory dysfunction
Chronic constipation-stool softeners
Left retroperitoneal bleed with hemorrhagic shock June 2023
Reported diarrhea x 3 days--none here --cancel check stool WBC, stool culture, C. difficile
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
Code status--Full code
Anticipated Discharge: > 48 hours
Subjective/Interval History
-
Date of Service: January 26, 2024
pt c/o breathing is not good--not on O2
Objective Data
-
Labs:
Laboratory Results
01/26/24
10:27
WBC 11.0 H
Hgb 12.2 L
Hct 34.7 L
Plt Count 163
Sodium 137
Potassium 4.0
Chloride 99
Carbon Dioxide 27
BUN 41 H
Creatinine 1.6 H
Glucose 161 H
Calcium 9.3
Vital Signs:
max temp for 24 hours
01/25/24
23:18
Temp 98.4 F
Vital Signs
Temp Pulse Resp BP Pulse Ox
98.3 F 83 20 126/58 92
01/26/24 11:30 01/26/24 11:32 01/26/24 11:32 01/26/24 11:30 01/26/24 11:32
I&O
01/25/24 01/26/24 01/27/24
06:59 06:59 06:59
Intake Total 530 / 530 480 / 480
Balance 530 / 530 480 / 480
Review of Systems
-
All other systems: Reviewed and negative
Physical Exam
-
General: Well Developed, Well Nourished and No Apparent Distress
HEENT: Normocephalic and Atraumatic
Respiratory: Rhonchi
Cardiac: Regular Rhythm and S1/S2; Negative Murmur
GI: Soft, Nontender, Nondistended and Normal Bowel Sounds
Musculoskeletal: No Clubbing, No Cyanosis and No Edema
Neuro: Awake
--- NOTE | 2024-01-26 15:28 | W.PN.PUL3 ---
Today's Communication / Plan
-
Transition to nebulized therapy: Doubt good inhaler technique
Pulmicort/DuoNeb-May discharge on this medication.
Acapella device
Complete 5 days of antibiotics.
Will discharge on low-dose azithromycin 250 mg every other day for anti-inflammatory properties for 2 weeks after discharge.
Incentive spirometry
Increase activity as able
Continue BiPAP
No indication for CT of the chest, unlikely to shredding machine knife changer at this point. Currently not requiring oxygen supplementation. Discussed with patient.
Assessment
-
Assessment: 73-year-old male never smoker with past medical history of asthma with suspected COPD, EARL/OHS on nocturnal BiPAP, depression/anxiety and CAD who presents with cough, shortness of breath, abdominal discomfort with nausea/vomiting and
diarrhea for about 3 days. Significant vitals in the ER were SpO2 92% on room air and he was afebrile to 98.9 �F. Labs showed normal WBC of 7.3, eosinophils were 0, BUN 27, creatinine 1.3, glucose 152, proBNP elevated at 8130 (was 319 on
11/27/2023), urinalysis was negative for evidence of UTI, COVID antigen was also negative. CXR was suggestive of left-sided pneumonia vs dense atelectasis. He was given nebulized albuterol + Decadron in the ER and admitted to the hospitalist
service where he was started on antibiotics. He has required between 0 and 2L/min since admission. Pulmonary service now consulted for additional management/recommendations.
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
June 2023, recurrent falls/ambulatory dysfunction, chronic A-fib on Eliquis, hypertension/hyperlipidemia, DM type II, history of combined systolic and diastolic heart failure, third-degree heart block s/p PPM, EARL on CPAP at 9 cmH2O, chronic
constipation, cholelithiasis, spinal stimulator
Impression:
#Acute hypoxic respiratory failure due to suspected left-sided HAP with ADHF (markedly elevated pro-BNP compared to prior values) with suspected asthma exacerbation
#Left-sided HAP
#Hyperglycemia
#Diarrhea
#EARL/OHS on nocturnal BiPAP
#DM type II
#Hx of CHB s/p PPM
#A-fib on Eliquis
Nonsmoker
Plan:
Patient complaining that he does not feel back to baseline. Feels tired, debilitated, chest tightness due to coughing.
Short of breath.
Objectively: Patient hemodynamically stable, not requiring supplemental oxygen. Does not appear toxic.
Mild leukocytosis noted likely due to steroids.
Afebrile
chest x-ray 01/25/2024: Low lung volumes, right hemidiaphragm elevation. No large infiltrate.
-
Continue with current care for now:
Likely there is residual deconditioning on top of his morbid obesity, due to his recent hospital stay requiring intubation.
Continue prednisone 40 mg starting 01-24, taper by 10 mg q3 d to off
Will transition to nebulizer therapy: DuoNebs/Pulmicort-May discharge on this medication. I doubt this patient has good inhaler technique.
Holdold LABA/ICS with Advair 45/21mcg
Incentive spirometry
Physical therapy as tolerated.
-
continue antibiotics: All cultures negative.
Noted normal PCT on 01-22
- Initially on ceftriaxone/doxy -
Blood cx (NTD) and sputum Cx (not collected), as well as urine antigens for legionella + Strep PNA (not collected)
- MRSA swab negative
Currently on zosyn/azithromycin po since 01-23
Complete 5 d course of atbs, evaluate response
-
Continue nocturnal BiPAP and can use during day if needed. Already on BPAP at home for last 2 m, reports good compliance
Mentating well.
Decompensation of hypercapnia.
-
TTE 11-28-23: LVEF 50% with mild global hypokinesia, normal DD (LVEF was 55-60% on Sep 2022)
Continue diuresis
F/u CXR 01-24 with no acute changes, no clear cut infiltrate to my eye, moderate elevation R diaphragm which is chronic since at least Jul 2020
No major events reported overnight in spite of multiple complaints from patient: Feels very weak, intermittent cough still occurs with some difficulty tolerating, he is concerned about the results of the repeat chest x-ray, he is concerned by the
fact that he had a pneumonia in late November into intubation.
Review of records indicated patient remains afebrile, he is on room air, he is not hypotensive, He does not present leukocytosis. Answered all his questions and reassured him, will follow closely. No current indication for chest CT at this juncture,
unlikely to shredding machine knife changer at this point.
-
DVT ppx: Eliquis AC
Physical therapy/Occupational Therapy. As tolerated.
-
Dr. Lion updated patient in detail.
I doubt he will be able to live independently.
-
Dr. Thomson -Reassured, per record review he is progressing well, explained to him that he does not need to be completely recovered and asymptomatic to be d/c
Will follow with [facility], office information left in chart
D/w patient in presence of RT

Data:
CXR 01-22-2024:
1. Moderate-sized dense airspace consolidation in the posterior basilar segment of the left lower lobe. Diagnostic possibilities are (1) chronic or recurrent pneumonia or (2) dense atelectasis.
2. Severe elevation of the right hemidiaphragm which appears unchanged.
3. Mild cardiomegaly.
4. Left-sided cardiac pacemaker in place.
Subjective Data
-
Date of Service:
Date of Service: January 26, 2024
Chief Complaint: Pulmonary Follow Up
Subjective:
Patient reports that he still does not feel back to baseline.
Oxygen has been weaned off.
He remains afebrile.
Continues to have coughing. He feels debilitated.
Feels some chest tightness due to coughing.
No hemoptysis.
Review of Systems
Cardiopulmonary: Dyspnea, Dyspnea on Exertion and Cough
Objective Data
Data Reviewed
Vital Signs / I&O / Oxygen:
Vital Signs
Temp Pulse Resp BP Pulse Ox
98.3 F 83 20 126/58 92
01/26/24 11:30 01/26/24 11:32 01/26/24 11:32 01/26/24 11:30 01/26/24 11:32
Intake and Output
01/25/24 01/26/24 01/27/24
06:59 06:59 06:59
Intake Total 530 / 530 480 / 480
Balance 530 / 530 480 / 480
SaO2 92
Nasal Cannula flow liters per 2
minute
Physical Exam
General: Respiratory Distress (trace)
HEENT: Normocephalic and Moist Mucous Membranes
Cardiovascular: Regular Rhythm, Murmur (n) and Peripheral Edema (trace pedal)
Respiratory: Wheeze (n), Rhonchi, Accessory Resp Muscle Use and Stridor (n)
GI: Soft, Non Distended, Non Tender and Normal Bowel Sounds
Neurology: Awake, AO x 3 and No Motor Deficits
Skin: Warm
Labs/Micro/Reports
Lab Data
01/26/24 10:27
01/26/24 10:27
Microbiology
01/23/24 19:38 Blood/Venous Blood Culture - Preliminary
No Growth in 48 hours- Final report to follow
01/22/24 22:25 Nose MRSA Screen - Final
No Methicillin Resistant Staphylococcus aureus isolated.
[2024-01-26 16:07] LABS: Glucose - Point of Care 392 mg/dl (70-99)
[2024-01-26] MEDS: NOVOLOG FLEXPEN-LOW RESISTANCE 5 UNITS SC (16:11)
[2024-01-26] MEDS: ULTRAM 50 MG PO (16:13)
[2024-01-26] MEDS: PULMICORT 0.5 MG INH (19:59)
[2024-01-26] MEDS: REFRESH EYE DROPS (PF) 1 DROPS OPHTH (21:23)
[2024-01-26] MEDS: LIPITOR 10 MG PO (21:23)
[2024-01-26 21:30] LABS: Glucose - Point of Care 392 mg/dl (70-99)
[2024-01-26] MEDS: MELATONIN 5 MG PO (22:22)
[2024-01-27] VITALS (7 sets, daily range): BP systolic 124–165; BP diastolic 66–81; PULSE 2–55; BMI 33.1
[2024-01-27] MEDS: ZOSYN 50 IV ×4 (03:12→21:04)
[2024-01-27] MEDS: DUONEB 3 ML INH ×4 (07:16→19:56)
[2024-01-27] MEDS: PULMICORT 0.5 MG INH ×2 (07:16→19:55)
[2024-01-27 08:24] LABS: Glucose - Point of Care 280 mg/dl (70-99)
[2024-01-27 08:34] LABS: Hematocrit 31.7 % (39.0-52.0); Hemoglobin 11.1 g/dL (13.0-18.0); Mean Corpuscular Hgb 31.1 pg (27.0-31.0); Mean Corpuscular Volume 88.8 fL (80.0-94.0); Mean Platelet Volume 12.8 fL (7.4-10.4); Platelet Count 114 10^3/uL (130-400); Red Blood Cell Count 3.57 10^6/uL (4.70-6.10); Red Cell Dist. Width 13.8 % (11.5-14.5); White Blood Cell Count 8.7 10^3/uL (4.8-10.8)
[2024-01-27 09:26] LABS: Blood Urea Nitrogen 39 mg/dl (9-20); Calcium 8.9 mg/dl (8.4-10.2); Carbon Dioxide 27 mmol/L (22-30); Chloride 97 mmol/L (98-107); Estimated Creatinine Clearance 63 ml/min; Glucose 222 mg/dl (70-99); Magnesium 1.8 mg/dl (1.6-2.3); Potassium 3.9 mmol/L (3.5-5.1); Sodium 133 mmol/L (135-145); eGFR 57.29
[2024-01-27] MEDS: NOVOLOG FLEXPEN-LOW RESISTANCE 3 UNITS SC ×2 (10:33→12:40)
[2024-01-27] MEDS: ZITHROMAX 500 MG PO (10:35)
[2024-01-27] MEDS: LEXAPRO 20 MG PO (10:35)
[2024-01-27] MEDS: COREG 6.25 MG PO ×2 (10:35→19:50)
[2024-01-27] MEDS: BUSPAR 10 MG PO ×2 (10:35→19:44)
[2024-01-27] MEDS: ELIQUIS 5 MG PO ×2 (10:35→19:44)
[2024-01-27] MEDS: NEURONTIN 300 MG PO ×2 (10:35→19:44)
[2024-01-27] MEDS: DELTASONE 40 MG PO (10:35)
[2024-01-27] MEDS: PROTONIX 40 MG PO (10:35)
[2024-01-27] MEDS: LASIX 40 MG PO (10:35)
[2024-01-27] MEDS: APRESOLINE 25 MG PO ×3 (10:36→21:03)
[2024-01-27] MEDS: DIOVAN 80 MG PO ×2 (10:36→19:50)
[2024-01-27] MEDS: HYCODAN SYRUP 5 ML PO (10:56)
--- NOTE | 2024-01-27 11:39 | W.PN.PUL3 ---
Today's Communication / Plan
-
Continue nebulizer therapy after discharge budesonide/DuoNebs.
Hold inhalers
Continue secretion clearance interventions
Complete antibiotics tomorrow
After discharge okay to continue azithromycin 250 mg every other day for anti-inflammatory properties for 3 weeks.
Continue prednisone taper.
Continue BiPAP therapy
Physical therapy/Occupational Therapy-patient may need placement.
Hopefully discharge planning soon.
Assessment
-
Assessment: 73-year-old male never smoker with past medical history of asthma with suspected COPD, EARL/OHS on nocturnal BiPAP, depression/anxiety and CAD who presents with cough, shortness of breath, abdominal discomfort with nausea/vomiting and
diarrhea for about 3 days. Significant vitals in the ER were SpO2 92% on room air and he was afebrile to 98.9 �F. Labs showed normal WBC of 7.3, eosinophils were 0, BUN 27, creatinine 1.3, glucose 152, proBNP elevated at 8130 (was 319 on
11/27/2023), urinalysis was negative for evidence of UTI, COVID antigen was also negative. CXR was suggestive of left-sided pneumonia vs dense atelectasis. He was given nebulized albuterol + Decadron in the ER and admitted to the hospitalist
service where he was started on antibiotics. He has required between 0 and 2L/min since admission. Pulmonary service now consulted for additional management/recommendations.
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
June 2023, recurrent falls/ambulatory dysfunction, chronic A-fib on Eliquis, hypertension/hyperlipidemia, DM type II, history of combined systolic and diastolic heart failure, third-degree heart block s/p PPM, EARL on CPAP at 9 cmH2O, chronic
constipation, cholelithiasis, spinal stimulator
Impression:
#Acute hypoxic respiratory failure due to suspected left-sided HAP with ADHF (markedly elevated pro-BNP compared to prior values) with suspected asthma exacerbation
#Left-sided HAP
#Hyperglycemia
#Diarrhea
#EARL/OHS on nocturnal BiPAP
#DM type II
#Hx of CHB s/p PPM
#A-fib on Eliquis
Nonsmoker
Plan:
Patient complaining that he does not feel back to baseline. Feels tired, debilitated, chest tightness due to coughing.
Short of breath. Suspect deconditioning component.
Objectively: Continues to be hemodynamically stable, not requiring supplemental oxygen. Does not appear toxic.
Mild leukocytosis noted likely due to steroids.
Afebrile
Not significantly bronchospastic on exam.
chest x-ray 01/25/2024: Low lung volumes, right hemidiaphragm elevation. No large infiltrate.
-
Continue with current care for now:
Likely there is residual deconditioning on top of his morbid obesity, due to his recent hospital stay requiring intubation.
Continue prednisone 40 mg starting 01-24, taper by 10 mg q3 d to off
Continue nebulizer therapy: DuoNebs/Pulmicort-May discharge on this medication. I doubt this patient has good inhaler technique.
Holdold LABA/ICS with Advair 45/21mcg until he is significantly improved in the outpatient setting.
Incentive spirometry
Acapella devecie usage encoraged.
Physical therapy as tolerated.
Given ongoing coughing, will continue azithromycin 250 mg every other day for anti-inflammatory properties for about 3 weeks after discharge. For anti-inflammatory properties.
-
continue antibiotics: All cultures negative.
Noted normal PCT on 01-22
- Initially on ceftriaxone/doxy -
Blood cx (NTD) and sputum Cx (not collected), as well as urine antigens for legionella + Strep PNA (not collected)
- MRSA swab negative
Currently on zosyn/azithromycin po since 01-23
Complete 5 d course of atbs, evaluate response
-
Continue nocturnal BiPAP and can use during day if needed. Already on BPAP at home for last 2 m, reports good compliance
Mentating well.
-
TTE 11-28-23: LVEF 50% with mild global hypokinesia, normal DD (LVEF was 55-60% on Sep 2022)
Continue diuresis as able.
F/u CXR 01-24 with no acute changes, no clear cut infiltrate to my eye, moderate elevation R diaphragm which is chronic since at least Jul 2020
No major events reported overnight in spite of multiple complaints from patient: Feels very weak, intermittent cough still occurs with some difficulty tolerating Bipap, he is concerned about the results of the repeat chest x-ray, he is concerned by
the fact that he had a pneumonia in late November into intubation.
No current indication for chest CT at this juncture, unlikely to pack changer at this point.
Dr. Garcia and Dr. Lion have discussed this with patient in detail
-
DVT ppx: Eliquis AC
Physical therapy/Occupational Therapy. As tolerated.
-
Dr. Lion updated patient in detail. 01/27/2024
I doubt he will be able to live independently. May need placement.
-
Dr. Thomson -Reassured, per record review he is progressing well, explained to him that he does not need to be completely recovered and asymptomatic to be d/c
Will follow with [facility], office information left in chart.
At this point no additional recommendations.
Discussed with Dr. Wagner. Ready for discharge from the pulmonary perspective in the next 24 hours after antibiotics are completed.
Discussed with case managers 01/27/2024.
-

Data:
CXR 01-22-2024:
1. Moderate-sized dense airspace consolidation in the posterior basilar segment of the left lower lobe. Diagnostic possibilities are (1) chronic or recurrent pneumonia or (2) dense atelectasis.
2. Severe elevation of the right hemidiaphragm which appears unchanged.
3. Mild cardiomegaly.
4. Left-sided cardiac pacemaker in place.
Subjective Data
-
Date of Service:
Date of Service: January 27, 2024
Chief Complaint: Pulmonary Follow Up (Exertional dyspnea.)
Subjective:
Continues to complain coughing, short of breath. Feels debilitated.
Review of Systems
General: Fever (n)
Cardiopulmonary: Dyspnea, Dyspnea on Exertion and Cough
GI: Abdominal Pain (n), Nausea (n) and Vomiting (n)
Objective Data
Data Reviewed
Vital Signs / I&O / Oxygen:
Vital Signs
Temp Pulse Resp BP Pulse Ox
98.8 F 56 20 143/71 94
01/27/24 11:31 01/27/24 11:31 01/27/24 11:31 01/27/24 11:31 01/27/24 11:31
Intake and Output
01/26/24 01/27/24 01/28/24
06:59 06:59 06:59
Intake Total 480 / 480 1300 / 1300
Balance 480 / 480 1300 / 1300
SaO2 94
Nasal Cannula flow liters per 2
minute
Physical Exam
General: Respiratory Distress (trace)
HEENT: Normocephalic and Moist Mucous Membranes
Cardiovascular: Regular Rhythm, Murmur (n) and Peripheral Edema (trace pedal)
Respiratory: Wheeze (n), Rhonchi, Accessory Resp Muscle Use and Stridor (n)
GI: Soft, Non Distended, Non Tender and Normal Bowel Sounds
Neurology: Awake, AO x 3 and No Motor Deficits
Skin: Warm
Labs/Micro/Reports
Lab Data
01/27/24 08:04
01/27/24 08:04
Microbiology
01/23/24 19:38 Blood/Venous Blood Culture - Preliminary
No Growth in 72 hours- Final report to follow
01/22/24 22:25 Nose MRSA Screen - Final
No Methicillin Resistant Staphylococcus aureus isolated.
[2024-01-27 12:26] LABS: Glucose - Point of Care 228 mg/dl (70-99)
--- NOTE | 2024-01-27 14:29 | W.PN.HOSP.TC ---
Today's Communication/Plan
-
anticipate d/c
abx finish tomorrow
medically stable for d/c to SNF
Assessment / Plan
Assessment / Plan
pt is a 73 year old male
Acute asthmatic bronchitis--likely due to pna--cont steroids--add cough med--change rocephin/doxy to zosyn/zithromax per pulm to cover for pseudomonas and atypicals (MRSA negative)--CXR with LLL pna--COVID/flu negative--apprec pulm input--cont nebs--
Chronic CHF�combined/cardiomyopathy--does not appear to be in acute exacerbation--I/O, daily weights
COPD Hx with acute exacerbation--Continue Wixela or equivalent
Essential HTN--Continue hydralazine, Coreg, valsartan
Hx haemophilus influenza positive endotracheal source 11/27/2023/Hx of hypoxic hypercapnic respiratory failure requiring 4 days intubation--Completed course of broad-spectrum antibiotics, 9-day course of amoxicillin
DM2-diet controlled--HgbA1c 6.10 November 2023
CKD 3B--Creat 1.3 follow BMP
HLD--Continue atorvastatin 10 mg at bedtime
Permanent Pacemaker--Third-degree heart block status post
Pulmonary HTN
Paroxysmal atrial fibrillation---Continue Eliquis 5 mg twice daily, carvedilol 6.25 mg twice daily
Sleep apnea--On current BiPAP unclear settings was on prior CPAP setting 9
Anxiety--Continue Lexapro, BuSpar
Chronic back pain--Continue gabapentin 300 mg twice daily, tramadol 50 mg twice daily as needed
Obesity due to excess calorie consumption�BMI 32.9 kg--Weight loss recommended, healthy heart diet watch carbohydrates
Left hip pain with Chronic ambulatory dysfunction
Chronic constipation-stool softeners
Left retroperitoneal bleed with hemorrhagic shock June 2023
Reported diarrhea x 3 days--none here --cancel check stool WBC, stool culture, C. difficile
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
Code status--Full code
Anticipated Discharge: 24 - 48 hours
Subjective/Interval History
-
Date of Service: January 27, 2024
explained d/c --explained nothing further to offer here in hospital--ready to move to next level
Objective Data
-
Labs:
Laboratory Results
01/27/24
08:04
WBC 8.7
Hgb 11.1 L
Hct 31.7 L
Plt Count 114 L D
Sodium 133 L
Potassium 3.9
Chloride 97 L
Carbon Dioxide 27
BUN 39 H
Creatinine 1.3
Glucose 222 H
Calcium 8.9
Vital Signs:
max temp for 24 hours
01/26/24
19:30
Temp 99.6 F
Vital Signs
Temp Pulse Resp BP Pulse Ox
98.8 F 56 20 143/71 94
01/27/24 11:31 01/27/24 11:31 01/27/24 11:31 01/27/24 11:31 01/27/24 11:31
I&O
01/26/24 01/27/24 01/28/24
06:59 06:59 06:59
Intake Total 480 / 480 1300 / 1300
Balance 480 / 480 1300 / 1300
Review of Systems
-
All other systems: Reviewed and negative
Physical Exam
-
General: Well Developed, Well Nourished, No Apparent Distress and Obese
HEENT: Normocephalic and Atraumatic; Negative Oxygen
Respiratory: Clear to Auscultation; Negative Wheezes, Rales or Rhonchi
Cardiac: Regular Rhythm and S1/S2; Negative Murmur
GI: Soft, Nontender, Nondistended and Normal Bowel Sounds
Musculoskeletal: No Clubbing, No Cyanosis and No Edema
Neuro: Awake and Alert
Psych: Calm
--- NOTE | 2024-01-27 15:37 | CM ---
horse racing manager met with patient this am along with fire coordinator this am and reviewed discharge window caser also spoke with patient's physician and plan is for skilled placement on , window caser reached out to physical therapy and patient
will be seen tomorrow by physical therapy and window caser will submit Auth for [facility], window caser will also reach out to Brittany Bass as requested by patient, Patient has been at [facility] in past, along with Miryam caban,
[facility] and [facility], patient has been denied at [facility] due to insurance, patient made aware. Per [facility] patient has used 36 days at their facility window caser will updated Keri at [facility].
Plan; Skilled placement at [facility].
--- NOTE | 2024-01-27 16:00 | PN.CDI ---
CDI
- -
CDI:
Physician Documentation Request
Admit Date: 01/22/24 19:22
Dear Doctor Kristy ,
Please review the following and provide your response in the progress notes.
Clinical Indicators:
Pt admitted with LL Pneumonia / Acute asthmatic bronchitis
Sodium labs below/did get IVFs and has been on Lasix
Laboratory Tests
01/24/24 01/25/24 01/27/24
08:04 07:09 08:04
Sodium 133 L 130 L 133 L
Based on the above, could you clarify in the progress notes, the appropriate diagnosis, if significant, that supports the above abnormalities and additional evaluation, monitoring and/or treatment rendered:
Hyponatremia
Abnormal lab value only
Other
Use of terms such as suspected, likely, concern for, or probable (associated with a specific diagnosis that is being evaluated, monitored, or treated as if it exists) are acceptable and can be coded in the inpatient setting, when documented at the
time of discharge.
Thank you,
China Boyle RN
CDI Specialist
[place] [facility]
Please use your independent medical judgment in providing your response.
[2024-01-27 17:33] LABS: Glucose - Point of Care 246 mg/dl (70-99)
[2024-01-27] MEDS: NOVOLOG FLEXPEN-LOW RESISTANCE 2 UNITS SC (18:32)
[2024-01-27] MEDS: LIPITOR 10 MG PO (21:03)
[2024-01-27 21:34] LABS: Glucose - Point of Care 445 mg/dl (70-99)
[2024-01-27 22:12] LABS: Glucose 414 mg/dl (70-99)
[2024-01-27] MEDS: NOVOLOG FLEXPEN 6 UNITS SC (22:35)
[2024-01-27] MEDS: MELATONIN 5 MG PO (22:36)
[2024-01-28 00:45] LABS: Glucose - Point of Care 338 mg/dl (70-99)
[2024-01-28] MEDS: NOVOLOG FLEXPEN 4 UNITS SC (01:07)
[2024-01-28] MEDS: ZOSYN 50 IV ×4 (03:09→21:20)
[2024-01-28 04:16] VITALS: PULSE 4
[2024-01-28 06:00] VITALS: BMI 33.0
[2024-01-28 07:00] VITALS: BP 188/83
[2024-01-28 08:03] LABS: Glucose - Point of Care 234 mg/dl (70-99)
[2024-01-28] MEDS: PULMICORT 0.5 MG INH ×2 (08:10→19:58)
[2024-01-28] MEDS: DUONEB 3 ML INH ×4 (08:10→19:58)
[2024-01-28 08:41] VITALS: PULSE 72; O2SAT 98
[2024-01-28] MEDS: NOVOLOG FLEXPEN-LOW RESISTANCE 2 UNITS SC (09:06)
[2024-01-28] MEDS: NEURONTIN 300 MG PO ×2 (09:07→19:38)
[2024-01-28] MEDS: DIOVAN 80 MG PO ×2 (09:07→19:38)
[2024-01-28] MEDS: ELIQUIS 5 MG PO ×2 (09:07→19:38)
[2024-01-28] MEDS: PROTONIX 40 MG PO (09:07)
[2024-01-28] MEDS: BUSPAR 10 MG PO ×2 (09:08→19:38)
[2024-01-28] MEDS: APRESOLINE 25 MG PO ×3 (09:08→21:20)
[2024-01-28] MEDS: LEXAPRO 20 MG PO (09:08)
[2024-01-28] MEDS: COREG 6.25 MG PO (09:08)
[2024-01-28] MEDS: ZITHROMAX 500 MG PO (09:09)
[2024-01-28] MEDS: DELTASONE 40 MG PO (09:09)
[2024-01-28] MEDS: LASIX 40 MG PO (09:09)
[2024-01-28 10:54] LABS: Hematocrit 34.8 % (39.0-52.0); Hemoglobin 12.3 g/dL (13.0-18.0); Mean Corp Hgb Conc. 35.3 g/dL (33.0-37.0); Mean Corpuscular Hgb 30.7 pg (27.0-31.0); Mean Corpuscular Volume 86.8 fL (80.0-94.0); Mean Platelet Volume 12.5 fL (7.4-10.4); Platelet Count 175 10^3/uL (130-400); Red Blood Cell Count 4.01 10^6/uL (4.70-6.10); Red Cell Dist. Width 13.7 % (11.5-14.5); White Blood Cell Count 15.1 10^3/uL (4.8-10.8)
--- NOTE | 2024-01-28 11:28 | W.PN.PUL3 ---
Today's Communication / Plan
-
Plan for discharge:
Pulmicort twice a day
DuoNebs 3-4 times a day
Hold inhalers
Low-dose azithromycin 250 mg every other day.
BiPAP therapy
Antitussives
Mucolytic's
Outpatient pulmonary follow-up
Assessment
-
Assessment: 73-year-old male never smoker with past medical history of asthma with suspected COPD, EARL/OHS on nocturnal BiPAP, depression/anxiety and CAD who presents with cough, shortness of breath, abdominal discomfort with nausea/vomiting and
diarrhea for about 3 days. Significant vitals in the ER were SpO2 92% on room air and he was afebrile to 98.9 �F. Labs showed normal WBC of 7.3, eosinophils were 0, BUN 27, creatinine 1.3, glucose 152, proBNP elevated at 8130 (was 319 on
11/27/2023), urinalysis was negative for evidence of UTI, COVID antigen was also negative. CXR was suggestive of left-sided pneumonia vs dense atelectasis. He was given nebulized albuterol + Decadron in the ER and admitted to the hospitalist
service where he was started on antibiotics. He has required between 0 and 2L/min since admission. Pulmonary service now consulted for additional management/recommendations.
Chronic conditions COMMUTATOR PRESSER: History of pneumonia, ?COPD/asthma, chronic allergic conjunctivitis, EARL on BiPAP, CKD, depression, anxiety disorder, history of retroperitoneal hematoma c/b hemorrhagic shock (06/2023), right adrenal mass stable compared to
June 2023, recurrent falls/ambulatory dysfunction, chronic A-fib on Eliquis, hypertension/hyperlipidemia, DM type II, history of combined systolic and diastolic heart failure, third-degree heart block s/p PPM, EARL on CPAP at 9 cmH2O, chronic
constipation, cholelithiasis, spinal stimulator
Impression:
#Acute hypoxic respiratory failure due to suspected left-sided HAP with ADHF (markedly elevated pro-BNP compared to prior values) with suspected asthma exacerbation
#Left-sided HAP
#Hyperglycemia
#Diarrhea
#EARL/OHS on nocturnal BiPAP
#DM type II
#Hx of CHB s/p PPM
#A-fib on Eliquis
Nonsmoker
Plan:
Patient complaining that he does not feel back to baseline. Feels tired, debilitated, chest tightness due to coughing.
Short of breath. Suspect deconditioning component.
Patient was explained that the coughing and occasional chest tightness will persist for several days to weeks.
Not bronchospastic on exam 01/28/2024
Objectively: Continues to be hemodynamically stable, not requiring supplemental oxygen. Does not appear toxic.
Mild leukocytosis noted likely due to steroids.
Afebrile
chest x-ray 01/25/2024: Low lung volumes, right hemidiaphragm elevation. No large infiltrate.
-
Continue with current care for now:
Likely there is residual deconditioning on top of his morbid obesity, due to his recent hospital stay requiring intubation.
-
Continue prednisone 40 mg starting 01-24, taper by 10 mg q3 d to off
Continue nebulizer therapy: DuoNebs/Pulmicort-May discharge on this medication. I doubt this patient has good inhaler technique.
Holdold LABA/ICS with Advair 45/21mcg until he is significantly improved in the outpatient setting.
Incentive spirometry
Acapella devecie usage encoraged.
Physical therapy as tolerated.
Discharge on azithromycin 250 mg every other day for anti-inflammatory properties for about 3 weeks after discharge. For anti-inflammatory properties.
-
continue antibiotics: All cultures negative.
Noted normal PCT on 01-22
- Initially on ceftriaxone/doxy -
Blood cx (NTD) and sputum Cx (not collected), as well as urine antigens for legionella + Strep PNA (not collected)
- MRSA swab negative
Currently on zosyn/azithromycin po since 01-23
Complete antibiotics today 01/28/2024.
-
Continue nocturnal BiPAP and can use during day if needed. Already on BPAP at home for last 2 m, reports good compliance
Mentating well.
-
TTE 11-28-23: LVEF 50% with mild global hypokinesia, normal DD (LVEF was 55-60% on Sep 2022)
Continue diuresis as able.
F/u CXR 01-24 with no acute changes, no clear cut infiltrate to my eye, moderate elevation R diaphragm which is chronic since at least Jul 2020
No major events reported overnight in spite of multiple complaints from patient: Feels very weak, intermittent cough still occurs with some difficulty tolerating Bipap, he is concerned about the results of the repeat chest x-ray, he is concerned by
the fact that he had a pneumonia in late November into intubation.
No current indication for chest CT at this juncture, unlikely to chemical cell changer at this point.
Dr. Garcia and Dr. Lion have discussed this with patient in detail
-
DVT ppx: Eliquis AC
Physical therapy/Occupational Therapy. As tolerated.
-
Dr. Thomson -Reassured, per record review he is progressing well, explained to him that he does not need to be completely recovered and asymptomatic to be d/c
Will follow with [facility], office information left in chart.
At this point no additional recommendations.
Discussed with Dr. Wagner. Ready for discharge from the pulmonary perspective in the next 24 hours after antibiotics are completed.
Discussed with onsite case manager 01/27/2024.
-
Agree with discharge planning for
No additional recommendation from the pulmonary perspective
Outpatient pulmonary follow-up
Sign off

Data:
CXR 01-22-2024:
1. Moderate-sized dense airspace consolidation in the posterior basilar segment of the left lower lobe. Diagnostic possibilities are (1) chronic or recurrent pneumonia or (2) dense atelectasis.
2. Severe elevation of the right hemidiaphragm which appears unchanged.
3. Mild cardiomegaly.
4. Left-sided cardiac pacemaker in place.
Subjective Data
-
Date of Service:
Date of Service: January 28, 2024
Chief Complaint: Pulmonary Follow Up (Exertional dyspnea.)
Subjective:
Continues to report intermittent coughing
No significant phlegm production
Continues to feel debilitated
Discharge planning ongoing.
Review of Systems
Cardiopulmonary: Dyspnea (Chronic) and Cough (stable)
Objective Data
Data Reviewed
Vital Signs / I&O / Oxygen:
Vital Signs
Temp Pulse Resp BP Pulse Ox
97.8 F 60 17 188/83 94
01/28/24 07:00 01/28/24 09:07 01/28/24 08:13 01/28/24 09:07 01/28/24 08:40
Intake and Output
01/27/24 01/28/24 01/29/24
06:59 06:59 06:59
Intake Total 1300 / 1300 580 / 580
Balance 1300 / 1300 580 / 580
SaO2 94
Nasal Cannula flow liters per 2
minute
Physical Exam
General: Respiratory Distress (trace)
HEENT: Normocephalic and Moist Mucous Membranes
Cardiovascular: Regular Rhythm, Murmur (n) and Peripheral Edema (trace pedal)
Respiratory: Wheeze (n), Rhonchi, Accessory Resp Muscle Use and Stridor (n)
GI: Soft, Non Distended, Non Tender and Normal Bowel Sounds
Neurology: Awake, AO x 3 and No Motor Deficits
Skin: Warm
Labs/Micro/Reports
Lab Data
01/28/24 10:45
Microbiology
01/23/24 19:38 Blood/Venous Blood Culture - Preliminary
No Growth in 4 days- Final report to follow
[2024-01-28 12:02] LABS: Glucose - Point of Care 330 mg/dl (70-99)
[2024-01-28 12:07] LABS: Blood Urea Nitrogen 39 mg/dl (9-20); Calcium 9.2 mg/dl (8.4-10.2); Carbon Dioxide 28 mmol/L (22-30); Chloride 98 mmol/L (98-107); Estimated Creatinine Clearance 63 ml/min; Glucose 206 mg/dl (70-99); Magnesium 1.8 mg/dl (1.6-2.3); Potassium 4.2 mmol/L (3.5-5.1); Sodium 132 mmol/L (135-145); eGFR 57.29
[2024-01-28] MEDS: NOVOLOG FLEXPEN-LOW RESISTANCE 4 UNITS SC (12:25)
--- NOTE | 2024-01-28 13:43 | CM ---
Addendum entered by Portia Rehman 01/28/24 17:16:
Bed is available at [facility] tomorrow or Friday, submitted Auth to [employer] Pending ref # [id number] .
[facility] will not accept patient.
Original Note:
food and beverage operations manager reviewed patient's chart and spoke with patient today, patient asked for referrals to [facility] and [facility], per Renea at [facility] she has no beds available, no answer from [facility]. Patient refuses referrals
to [facility], [facility] and [facility], patient has been denied at [facility] due to insurance, patient aware, patient is not agreeable to [facility].
Per admissions at [facility] they can provide patient with a private room, tomorrow, bottle caser will proceed with obtaining auth.
Plan; Hopefully [facility] Pending approval
[2024-01-28 15:00] VITALS: BP 148/85
[2024-01-28 16:46] LABS: Glucose - Point of Care 421 mg/dl (70-99)
--- NOTE | 2024-01-28 16:57 | W.PN.HOSP.TC ---
Today's Communication/Plan
-
d/c Friday
Assessment / Plan
Assessment / Plan
pt is a 73 year old male
Acute asthmatic bronchitis--likely due to pna--cont steroids, wean as able--add cough med--change rocephin/doxy to zosyn/zithromax per pulm to cover for pseudomonas and atypicals (MRSA negative)--CXR with LLL pna--COVID/flu negative--apprec pulm
input--cont nebs--
Chronic CHF�combined/cardiomyopathy--does not appear to be in acute exacerbation--I/O, daily weights
COPD Hx with acute exacerbation--Continue Wixela or equivalent
Essential HTN--Continue hydralazine, Coreg, valsartan--adjust as needed
hyponatremia--not significant
Hx haemophilus influenza positive endotracheal source 11/27/2023/Hx of hypoxic hypercapnic respiratory failure requiring 4 days intubation--Completed course of broad-spectrum antibiotics, 9-day course of amoxicillin
DM2-diet controlled--HgbA1c 6.10 November 2023--blood sugars elevated due to steroids--add 5 units Lantus and increase to SS high dose
CKD 3B--Creat 1.3 follow BMP
HLD--Continue atorvastatin 10 mg at bedtime
Permanent Pacemaker--Third-degree heart block status post
Pulmonary HTN
Paroxysmal atrial fibrillation---Continue Eliquis 5 mg twice daily, carvedilol 6.25 mg twice daily
Sleep apnea--On current BiPAP unclear settings was on prior CPAP setting 9
Anxiety--Continue Lexapro, BuSpar
Chronic back pain--Continue gabapentin 300 mg twice daily, tramadol 50 mg twice daily as needed
Obesity due to excess calorie consumption�BMI 32.9 kg--Weight loss recommended, healthy heart diet watch carbohydrates
Left hip pain with Chronic ambulatory dysfunction
Chronic constipation-stool softeners
Left retroperitoneal bleed with hemorrhagic shock June 2023
Reported diarrhea x 3 days--none here --cancel check stool WBC, stool culture, C. difficile
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
Code status--Full code
Anticipated Discharge: 24 - 48 hours
Subjective/Interval History
-
Date of Service: January 28, 2024
pt obstinate about leaving when he is ready--says he is SOB despite talking nonstop
Objective Data
-
Labs:
Laboratory Results
01/28/24 01/28/24
10:45 16:50
WBC 15.1 H
Hgb 12.3 L
Hct 34.8 L
Plt Count 175 D
Sodium 132 L
Potassium 4.2
Chloride 98
Carbon Dioxide 28
BUN 39 H
Creatinine 1.3
Glucose 206 H Pending
Calcium 9.2
Vital Signs:
max temp for 24 hours
01/27/24
23:29
Temp 98.1 F
Vital Signs
Temp Pulse Resp BP Pulse Ox
98.3 F 96 16 148/85 93
01/28/24 15:00 01/28/24 16:44 01/28/24 16:22 01/28/24 16:44 01/28/24 15:00
I&O
01/27/24 01/28/24 01/29/24
06:59 06:59 06:59
Intake Total 1300 / 1300 580 / 580
Balance 1300 / 1300 580 / 580
Review of Systems
-
All other systems: Reviewed and negative
Respiratory: Reports Trouble Breathing
Physical Exam
-
General: Well Developed, Well Nourished and No Apparent Distress
HEENT: Normocephalic and Atraumatic; Negative Oxygen
Respiratory: Clear to Auscultation; Negative Wheezes, Rales, Rhonchi or Crackles
Cardiac: Regular Rhythm and S1/S2; Negative Murmur
GI: Soft, Nontender, Nondistended and Normal Bowel Sounds
Musculoskeletal: No Clubbing, No Cyanosis and No Edema
Neuro: Awake
[2024-01-28] MEDS: NOVOLOG FLEXPEN-LOW RESISTANCE 14 UNITS SC (17:36)
[2024-01-28 17:48] LABS: Glucose 439 mg/dl (70-99)
[2024-01-28 19:35] VITALS: BP 127/67
[2024-01-28] MEDS: COREG 12.5 MG PO (19:38)
[2024-01-28 20:47] LABS: Glucose - Point of Care 318 mg/dl (70-99)
[2024-01-28] MEDS: LANTUS 0.0500000000000000028 UNITS SC (21:21)
[2024-01-28] MEDS: LIPITOR 10 MG PO (21:21)
[2024-01-28 23:06] VITALS: BP 146/63
[2024-01-28] MEDS: HYCODAN SYRUP 5 ML PO (23:07)
[2024-01-28] MEDS: MELATONIN 5 MG PO (23:10)
[2024-01-29] VITALS (7 sets, daily range): BP systolic 125–174; BP diastolic 56–84; PULSE 2–71; O2SAT 98; BMI 33.0
[2024-01-29] MEDS: ZOSYN 50 IV ×4 (03:46→22:06)
[2024-01-29] MEDS: HYCODAN SYRUP 5 ML PO ×2 (05:44→20:27)
[2024-01-29 07:52] LABS: Glucose - Point of Care 225 mg/dl (70-99)
[2024-01-29] MEDS: DUONEB 3 ML INH ×4 (08:02→19:36)
[2024-01-29] MEDS: PULMICORT 0.5 MG INH ×2 (08:02→19:36)
[2024-01-29 08:31] LABS: Hematocrit 31.6 % (39.0-52.0); Mean Corp Hgb Conc. 34.8 g/dL (33.0-37.0); Mean Corpuscular Hgb 30.7 pg (27.0-31.0); Mean Corpuscular Volume 88.3 fL (80.0-94.0); Mean Platelet Volume 12.7 fL (7.4-10.4); Platelet Count 139 10^3/uL (130-400); Red Blood Cell Count 3.58 10^6/uL (4.70-6.10); Red Cell Dist. Width 13.9 % (11.5-14.5); White Blood Cell Count 12.2 10^3/uL (4.8-10.8)
[2024-01-29 09:00] LABS: Blood Urea Nitrogen 39 mg/dl (9-20); Calcium 8.9 mg/dl (8.4-10.2); Carbon Dioxide 32 mmol/L (22-30); Chloride 98 mmol/L (98-107); Estimated Creatinine Clearance 58 ml/min; Glucose 210 mg/dl (70-99); Magnesium 1.8 mg/dl (1.6-2.3); Potassium 4.1 mmol/L (3.5-5.1); Sodium 132 mmol/L (135-145); eGFR 52.41
[2024-01-29] MEDS: NOVOLOG FLEXPEN-HIGH RESISTANCE 4 UNITS SC ×2 (09:39→12:12)
[2024-01-29] MEDS: ZITHROMAX 500 MG PO (09:40)
[2024-01-29] MEDS: DELTASONE 30 MG PO (09:41)
[2024-01-29] MEDS: APRESOLINE 25 MG PO ×3 (09:42→22:06)
[2024-01-29] MEDS: DIOVAN 80 MG PO ×2 (09:43→19:34)
[2024-01-29] MEDS: PROTONIX 40 MG PO (09:43)
[2024-01-29] MEDS: NEURONTIN 300 MG PO ×2 (09:43→19:34)
[2024-01-29] MEDS: LASIX 40 MG PO (09:43)
[2024-01-29] MEDS: ELIQUIS 5 MG PO ×2 (09:44→19:33)
[2024-01-29] MEDS: COREG 12.5 MG PO ×2 (09:44→19:34)
[2024-01-29] MEDS: LEXAPRO 20 MG PO (09:44)
[2024-01-29] MEDS: BUSPAR 10 MG PO ×2 (09:44→19:34)
[2024-01-29 11:30] LABS: Glucose - Point of Care 213 mg/dl (70-99)
--- NOTE | 2024-01-29 13:36 | W.PN.HOSP.TC ---
Today's Communication/Plan
-
anticipate d/c to [facility] tomorrow
Assessment / Plan
Assessment / Plan
pt is a 73 year old male
Acute asthmatic bronchitis--likely due to pna--cont steroids, wean as able--add cough med--change rocephin/doxy to zosyn/zithromax per pulm to cover for pseudomonas and atypicals (MRSA negative)--CXR with LLL pna--COVID/flu negative--apprec pulm
input--cont nebs--
Chronic CHF�combined/cardiomyopathy--does not appear to be in acute exacerbation--I/O, daily weights
COPD Hx with acute exacerbation--Continue Wixela or equivalent
Essential HTN--Continue hydralazine, Coreg, valsartan--adjust as needed
hyponatremia--not significant
Hx haemophilus influenza positive endotracheal source 11/27/2023/Hx of hypoxic hypercapnic respiratory failure requiring 4 days intubation--Completed course of broad-spectrum antibiotics, 9-day course of amoxicillin
DM2-diet controlled--HgbA1c 6.10 November 2023--blood sugars elevated due to steroids--added 5 units Lantus and increase to SS high dose--sugars better
CKD 3B--Creat 1.3 follow BMP
HLD--Continue atorvastatin 10 mg at bedtime
Permanent Pacemaker--Third-degree heart block status post
Pulmonary HTN
Paroxysmal atrial fibrillation---Continue Eliquis 5 mg twice daily, carvedilol 6.25 mg twice daily
Sleep apnea--On current BiPAP unclear settings was on prior CPAP setting 9
Anxiety--Continue Lexapro, BuSpar
Chronic back pain--Continue gabapentin 300 mg twice daily, tramadol 50 mg twice daily as needed
Obesity due to excess calorie consumption�BMI 32.9 kg--Weight loss recommended, healthy heart diet watch carbohydrates
Left hip pain with Chronic ambulatory dysfunction
Chronic constipation-stool softeners
Left retroperitoneal bleed with hemorrhagic shock June 2023
Reported diarrhea x 3 days--none here --cancel check stool WBC, stool culture, C. difficile
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
Code status--Full code
Anticipated Discharge: Within 24 hours
Subjective/Interval History
-
Date of Service: January 29, 2024
no c/o
Objective Data
-
Labs:
Laboratory Results
01/29/24
07:47
WBC 12.2 H
Hgb 11.0 L
Hct 31.6 L
Plt Count 139 D
Sodium 132 L
Potassium 4.1
Chloride 98
Carbon Dioxide 32 H
BUN 39 H
Creatinine 1.4 H
Glucose 210 H
Calcium 8.9
Vital Signs:
max temp for 24 hours
01/28/24
15:00
Temp 98.3 F
Vital Signs
Temp Pulse Resp BP Pulse Ox
97.7 F 92 16 148/57 94
01/29/24 07:30 01/29/24 09:42 01/29/24 08:05 01/29/24 09:42 01/29/24 08:05
I&O
01/28/24 01/29/24 01/30/24
06:59 06:59 06:59
Intake Total 580 / 580 1220 / 1220
Balance 580 / 580 1220 / 1220
Review of Systems
-
All other systems: Reviewed and negative
Physical Exam
-
General: Well Developed, Well Nourished and No Apparent Distress
HEENT: Normocephalic and Atraumatic
Respiratory: Clear to Auscultation; Negative Wheezes or Rhonchi
Cardiac: Regular Rhythm and S1/S2; Negative Murmur
GI: Soft, Nontender, Nondistended and Normal Bowel Sounds
Musculoskeletal: No Clubbing, No Cyanosis and No Edema
Neuro: Awake and Alert
[2024-01-29 15:28] LABS: Glucose - Point of Care 332 mg/dl (70-99)
--- NOTE | 2024-01-29 16:04 | CM ---
TC viri Buckner at [facility], authorization still pending.
ref # [id number] .
Plan: [facility] Tomorrow
[2024-01-29] MEDS: NOVOLOG FLEXPEN-HIGH RESISTANCE 10 UNITS SC (16:16)
[2024-01-29 21:39] LABS: Glucose - Point of Care 400 mg/dl (70-99)
[2024-01-29] MEDS: MELATONIN 5 MG PO (22:06)
[2024-01-29] MEDS: LIPITOR 10 MG PO (22:06)
[2024-01-29] MEDS: LANTUS 0.0500000000000000028 UNITS SC (22:07)
[2024-01-29] MEDS: NOVOLOG FLEXPEN 10 UNITS SC (22:10)
[2024-01-30 00:25] LABS: Glucose - Point of Care 337 mg/dl (70-99)
[2024-01-30 03:31] VITALS: PULSE 2
[2024-01-30] MEDS: ZOSYN 50 IV ×4 (04:13→21:38)
[2024-01-30 05:36] VITALS: BMI 32.6
[2024-01-30 07:27] LABS: Hematocrit 32.7 % (39.0-52.0); Hemoglobin 11.2 g/dL (13.0-18.0); Mean Corp Hgb Conc. 34.3 g/dL (33.0-37.0); Mean Corpuscular Hgb 31.1 pg (27.0-31.0); Mean Corpuscular Volume 90.8 fL (80.0-94.0); Mean Platelet Volume 12.9 fL (7.4-10.4); Platelet Count 123 10^3/uL (130-400); Red Cell Dist. Width 13.9 % (11.5-14.5); White Blood Cell Count 11.3 10^3/uL (4.8-10.8)
[2024-01-30 07:30] VITALS: BP 190/90
[2024-01-30 07:47] LABS: Glucose - Point of Care 255 mg/dl (70-99)
[2024-01-30 07:57] LABS: Blood Urea Nitrogen 37 mg/dl (9-20); Calcium 8.8 mg/dl (8.4-10.2); Carbon Dioxide 31 mmol/L (22-30); Chloride 99 mmol/L (98-107); Estimated Creatinine Clearance 63 ml/min; Glucose 257 mg/dl (70-99); Magnesium 1.8 mg/dl (1.6-2.3); Potassium 4.1 mmol/L (3.5-5.1); Sodium 131 mmol/L (135-145); eGFR 57.29
[2024-01-30] MEDS: PULMICORT 0.5 MG INH ×2 (08:27→19:58)
[2024-01-30] MEDS: DUONEB 3 ML INH ×4 (08:27→19:58)
--- NOTE | 2024-01-30 09:06 | W.PN.HOSP.TC ---
Today's Communication/Plan
-
pt is medically stable to move to next level (SNF)
Assessment / Plan
Assessment / Plan
pt is a 73 year old male
Acute asthmatic bronchitis--likely due to pna--cont steroids, wean as able--add cough med--change rocephin/doxy to zosyn/zithromax per pulm to cover for pseudomonas and atypicals (MRSA negative), last dose of ABX today, transition to every other day
zithromax---COVID/flu negative--apprec pulm input--cont nebs--
Chronic CHF�combined/cardiomyopathy--does not appear to be in acute exacerbation--I/O, daily weights
COPD Hx with acute exacerbation--Continue Wixela or equivalent
Essential HTN--Continue hydralazine, Coreg, valsartan--adjust as needed, usually high in AM before meds
hyponatremia--not significant
Hx haemophilus influenza positive endotracheal source 11/27/2023/Hx of hypoxic hypercapnic respiratory failure requiring 4 days intubation--Completed course of broad-spectrum antibiotics, 9-day course of amoxicillin
DM2-diet controlled--HgbA1c 6.10 November 2023--blood sugars elevated due to steroids--increased lantus to 10 units SQ and added Aspart 5 units with meals--will need adjustments based on steroid wean and sugars
CKD 3B--Creat 1.3 follow BMP
HLD--Continue atorvastatin 10 mg at bedtime
Permanent Pacemaker--Third-degree heart block status post
Pulmonary HTN
Paroxysmal atrial fibrillation---Continue Eliquis 5 mg twice daily, carvedilol 6.25 mg twice daily
Sleep apnea--On current BiPAP unclear settings was on prior CPAP setting 9
Anxiety--Continue Lexapro, BuSpar
Chronic back pain--Continue gabapentin 300 mg twice daily, tramadol 50 mg twice daily as needed
Obesity due to excess calorie consumption�BMI 32.9 kg--Weight loss recommended, healthy heart diet watch carbohydrates
Left hip pain with Chronic ambulatory dysfunction
Chronic constipation-stool softeners
Left retroperitoneal bleed with hemorrhagic shock June 2023
Reported diarrhea x 3 days--none here --cancel check stool WBC, stool culture, C. difficile
DVT prophylaxis--Continue PUTTER IN Eliquis 5 mg twice daily
Code status--Full code
Anticipated Discharge: Today
Subjective/Interval History
-
Date of Service: January 30, 2024
pt finding excuses not to go to rehab
Objective Data
-
Labs:
Laboratory Results
01/30/24
06:41
WBC 11.3 H
Hgb 11.2 L
Hct 32.7 L
Plt Count 123 L
Sodium 131 L
Potassium 4.1
Chloride 99
Carbon Dioxide 31 H
BUN 37 H
Creatinine 1.3
Glucose 257 H
Calcium 8.8
Vital Signs:
max temp for 24 hours
01/29/24
23:22
Temp 98.6 F
Vital Signs
Temp Pulse Resp BP Pulse Ox
97.3 F 54 17 190/90 93
01/30/24 07:30 01/30/24 07:30 01/30/24 07:30 01/30/24 07:30 01/30/24 07:30
I&O
01/29/24 01/30/24 01/31/24
06:59 06:59 06:59
Intake Total 1220 / 1220 820 / 820
Balance 1220 / 1220 820 / 820
Review of Systems
-
All other systems: Reviewed and negative
Physical Exam
-
General: Well Developed, Well Nourished and No Apparent Distress
HEENT: Normocephalic, Atraumatic and Other (getting breathing treatment)
Respiratory: Clear to Auscultation; Negative Wheezes or Rhonchi
Cardiac: Regular Rhythm and S1/S2; Negative Murmur
GI: Soft, Nontender, Nondistended and Normal Bowel Sounds
Musculoskeletal: No Clubbing, No Cyanosis and No Edema
Neuro: Awake
Psych: Calm
[2024-01-30] MEDS: NOVOLOG FLEXPEN-HIGH RESISTANCE 7 UNITS SC ×2 (09:27→17:27)
[2024-01-30] MEDS: PROTONIX 40 MG PO (09:28)
[2024-01-30] MEDS: BUSPAR 10 MG PO ×2 (09:28→20:17)
[2024-01-30] MEDS: COREG 12.5 MG PO ×2 (09:29→20:18)
[2024-01-30] MEDS: APRESOLINE 25 MG PO ×3 (09:29→21:39)
[2024-01-30] MEDS: DIOVAN 80 MG PO ×2 (09:29→20:18)
[2024-01-30] MEDS: LASIX 40 MG PO (09:29)
[2024-01-30] MEDS: LEXAPRO 20 MG PO (09:30)
[2024-01-30] MEDS: ELIQUIS 5 MG PO ×2 (09:30→20:17)
[2024-01-30] MEDS: DELTASONE 30 MG PO (09:30)
[2024-01-30] MEDS: ZITHROMAX 500 MG PO (09:31)
[2024-01-30] MEDS: NEURONTIN 300 MG PO ×2 (09:31→20:18)
--- NOTE | 2024-01-30 09:35 | CM ---
Addendum entered by Portia Rehman 01/30/24 10:57:
Per physician advisor patient maybe denied skilled placement, therefore bottle caser will offer patient private pay options, (these options were offered to patient in past but patient refused to pay and provide financial information). Another
option will be for patient to return to home with visiting nurses and caregivers.
Original Note:
manufacturing finance manager reviewed patient's chart and received a call from patient's [facility] requesting a peer to peer, bottle caser provided peer to peer information to to physician advisor, Option 5 with a 1pm deadline for appeal.
Plan; Waiting on Auth for skilled placement at [facility] today.
[2024-01-30 12:17] LABS: Glucose - Point of Care 305 mg/dl (70-99)
[2024-01-30] MEDS: NOVOLOG FLEXPEN 5 UNITS SC ×2 (12:44→17:26)
[2024-01-30] MEDS: NOVOLOG FLEXPEN-HIGH RESISTANCE 10 UNITS SC (12:45)
[2024-01-30 15:30] VITALS: BP 150/84
--- NOTE | 2024-01-30 15:43 | CM ---
Call placed to [facility] Expedited Member Appeals ( prompt 3) in order to initiate an expedited member appeal on behalf of the patient. Spoke to Tara. Demographic information provided. She asked that clinical records be faxed to
, Number was read back and confirmed with Tara. Tara stated that a determination will be made within 72 hours of receipt of the record. Update to . Clinical record being faxed currently.
[2024-01-30 16:34] LABS: Glucose - Point of Care 268 mg/dl (70-99)
--- NOTE | 2024-01-30 17:05 | W.DCSUMMARY ---
Addendum entered and electronically signed by Lazarus Gray MD 02/04/24 10:28:
As noted below in discharge summary by Dr. Wagner is an addendum as the patient was required to stay until authorization for his rehab to [facility] [place] we continue to treat him for his bronchitic symptoms with expectorants for his harsh cough he
will need continued vigilance to make sure he uses incentive spirometry as he does have persisting atelectasis in his right lung but x-ray shows improvement and was obtain day prior to his discharge today otherwise. He should continue on a steroid
taper and every 48 hour Zithromax
Original Note:
Discharge Summary
Discharge Data
Date of Admission: 01/22/24
Date of Discharge: 01/30/24
-
Pending Results: No
Hospital Course
Primary care physician : Enrico Mar
Principal Discharge diagnosis : Acute asthmatic bronchitis and chronic obstructive pulmonary disease with exacerbation due to pneumonia, type 2 diabetes mellitus with elevated blood sugars due to steroids
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
pacemaker, pulmonary hypertension, paroxysmal atrial fibrillation, obstructive sleep apnea, anxiety, chronic back pain, obesity due to excess calories, chronic constipation, history of left retroperitoneal bleed in the past, left hip pain with
chronic ambulatory dysfunction
Hospital Course : Patient was a 73-year-old male complaining of productive yellow cough, wheezing, shortness of breath, nausea, diarrhea x 3 days with subjective fevers. He was discharged from [facility] on Friday01/19/2024 to his apartment
but has not been able to get around. He denied headache, sore throat, chest pain, palpitations, abdominal pain, vomiting, urinary symptoms. He had recent admission to 11/27/23- 12/05/23 for hypoxic/hypercapnic respiratory failure requiring brief
episode of intubation x 4 days, broad-spectrum antibiotics for haemophilus influenza respiratory cultures he completed 9-day course of amoxicillin was sent to [facility] on 2 L of oxygen, but is no longer on O2. Patient was admitted.
Problem #1: Acute asthmatic bronchitis with chronic obstructive pulmonary disease exacerbation due to pneumonia. Patient was admitted and seen in consultation by pulmonary. He was started on broad-spectrum antibiotics which included Rocephin and
doxycycline. He was then transitioned to Zosyn and Zithromax per pulmonary to cover for Pseudomonas and atypical coverage given his recent hospitalization and [facility] stay. Patient was weaned off oxygen. He was given nebulizers
and cough medications. COVID and flu were checked and were negative. He was started on steroids and he will continue his taper of steroids to off. His last dose of antibiotics was the day of discharge, 01/30/2024 with transition to every other day
Zithromax 250 mg.
Problem #2: Type 2 diabetes mellitus with elevated blood sugars due to steroids. Patient's blood sugars have been erratic due to his steroids. We had a long discussion regarding his steroid taper and the fact that I have started him on insulin at
this time. He is on standing nighttime Lantus and insulin 5 units with meals to assist management of the blood sugars in the range of 300s to 400s due to the steroids. I did explain to the patient that at the penitentiary facility they can
continue to cover his blood sugars with insulin if needed and likely he would come off insulin once his steroid taper was finished. Adjustments will need to be made to the insulin as he tapers his steroids.
Problem #3: All other medical issues. 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
hyperlipidemia, permanent pacemaker, pulmonary hypertension, paroxysmal atrial fibrillation, obstructive sleep apnea, anxiety, chronic back pain, obesity due to excess calories, chronic constipation, history of left retroperitoneal bleed in the
past, left hip pain with chronic ambulatory dysfunction. These medical issues were stable during his hospitalization. Medications were continued as able.
Patient was seen in consultation by physical therapy and Occupational Therapy. He has been told by pulmonary that he is no longer able to live alone as he was just discharged home from the [facility] facility and promptly returned. He has
been accepted at [facility] and is stable for discharge to go to [facility] at this time. Case management involved obtaining authorizations. If there are any questions regarding this dictation or his hospital stay, please not hesitate to call. Our
office number is [phone].
Time for discharge 40 minutes.
Discharge Plan
-
Patient Disposition: Alf/SNF
Discharge Diagnosis/Procedures: Acute asthmatic bronchitis from pneumonia, chronic mixed congestive heart failure without exacerbation, chronic obstructive pulmonary disease with exacerbation, essential hypertension, hyponatremia, type 2 diabetes
mellitus, chronic kidney disease stage IIIb, hyperlipidemia, permanent pacemaker, pulmonary hypertension, paroxysmal atrial fibrillation, sleep apnea, anxiety, chronic back pain, obesity due to excess calories, chronic constipation, history of left
retroperitoneal bleed
Condition: Good
Diet: Low Sodium and Diabetic, Carb Controlled
Activity: As tolerated
Driving Restrictions: As prior to admission
Bathing Restrictions: None
Referrals:
Rashel Rivas MD [Active] - in three to four weeks
Enrico Mar MD [Family Provider] - in less than 1 week
Prescriptions:
New
acetaminophen 325 mg Tablet
650 mg PO Q4HPRN PRN (Reason: mild pain/MALDONADO/temp> 100.4F) Qty: 0 0RF
carvedilol 12.5 mg Tablet
12.5 mg PO BID Qty: 10 0RF
ipratropium-albuterol 0.5 mg-3 mg(2.5 mg base)/3 mL Solution For Nebulization
3 ml inhalation R QID Qty: 0 0RF
hydralazine 25 mg Tablet
37.5 mg PO TID Qty: 0 0RF
sennosides-docusate sodium [Stool Softener-Stimulant Laxat] 8.6-50 mg Tablet
1 tab PO BIDPRN PRN (Reason: constipation) Qty: 0 0RF
bisacodyl 10 mg Suppository
10 mg NC [id number] PRN (Reason: constipation) Qty: 0 0RF
Refresh Classic (PF) 1.4-0.6 % Dropperette
1 drops ophthalmic (eye) QIDPRN PRN (Reason: dry eyes) Qty: 0 0RF
insulin aspart U-100 100 unit/mL (3 mL) Insulin Pen
5 unit SC AC Qty: 0 0RF
prednisone 20 mg Tablet
30 mg PO DAILY Qty: 0 0RF
Insulin Glargine Lantus [Lantus] 10 UNITS
Subcutaneous Insulin Syringe [Syringe-Insulin] 0 UNIT
As Directed mls/hr SC HS
Reason for use: Diabetes
Ordered By: Renetta Wagner MD
Last Taken: 01/29/24 22:07 0.05 mls
budesonide 0.5 mg/2 mL Suspension For Nebulization
0.5 mg inhalation R BID Qty: 0 0RF
melatonin 5 mg Tablet
5 mg PO HS Qty: 0 0RF
azithromycin 250 mg tablet
250 mg PO Q48H Qty: 6 0RF
Continued
atorvastatin [Lipitor] 10 mg Tablet
10 mg PO HS
escitalopram oxalate [Lexapro] 20 mg Tablet
20 mg PO DAILY
fluticasone propion-salmeterol [Wixela Inhub] 100-50 mcg/dose Blister With Device
1 inh INHALATION R BID
Eliquis 5 mg tablet
5 mg PO BID Qty: 30 0RF
gabapentin 300 mg capsule
300 mg PO BID
valsartan 80 mg Tablet
80 mg PO BID
pantoprazole [Protonix] 40 mg Tablet,Delayed Release (Dr/Ec)
40 mg PO DAILY
buspirone 10 mg Tablet
10 mg PO BID
tramadol 50 mg Tablet
50 mg PO BIDPRN PRN (Reason: moderate pains)
polyethylene glycol 3350 [Miralax] 17 gram Powder In Packet
17 g PO DAILYPRN PRN (Reason: constipation)
furosemide 40 mg Tablet
40 mg PO DAILY Qty: 0 0RF
Discontinued
hydralazine 25 mg Tablet
25 mg PO TID
carvedilol 3.125 mg tablet
6.25 mg PO BID
Discharge Orders:
Discharge Patient (As Directed); Ordered 01/30/24
Ordered By: Renetta Wagner
Discharge Date and Time
Print Language: BENGALI
[2024-01-30] MEDS: HYCODAN SYRUP 5 ML PO (20:17)
[2024-01-30] MEDS: LIPITOR 10 MG PO (20:18)
[2024-01-30] MEDS: MELATONIN 5 MG PO (21:38)
[2024-01-30] MEDS: LANTUS 0.100000000000000006 UNITS SC (21:38)
[2024-01-30 21:48] LABS: Glucose - Point of Care 338 mg/dl (70-99)
[2024-01-30] MEDS: NOVOLOG FLEXPEN 10 UNITS SC (22:40)
[2024-01-30 23:00] VITALS: BP 121/58
[2024-01-30 23:46] VITALS: PULSE 2; PULSE 62
[2024-01-31 00:40] VITALS: BP 126/54
[2024-01-31 00:45] LABS: Glucose - Point of Care 273 mg/dl (70-99)
[2024-01-31 03:40] VITALS: PULSE 2
[2024-01-31 06:00] VITALS: BMI 33.1
[2024-01-31 07:02] VITALS: BP 151/76
[2024-01-31 07:35] LABS: Glucose - Point of Care 224 mg/dl (70-99)
[2024-01-31] MEDS: DUONEB 3 ML INH ×4 (08:08→20:38)
[2024-01-31] MEDS: PULMICORT 0.5 MG INH ×2 (08:09→20:41)
[2024-01-31] MEDS: DELTASONE 30 MG PO (08:39)
[2024-01-31] MEDS: ZITHROMAX 250 MG PO (08:39)
[2024-01-31] MEDS: LASIX 40 MG PO (08:39)
[2024-01-31] MEDS: DIOVAN 80 MG PO ×2 (08:39→20:48)
[2024-01-31] MEDS: ELIQUIS 5 MG PO ×2 (08:39→20:49)
[2024-01-31] MEDS: BUSPAR 10 MG PO ×2 (08:39→20:52)
[2024-01-31] MEDS: NEURONTIN 300 MG PO ×2 (08:39→20:48)
[2024-01-31] MEDS: NOVOLOG FLEXPEN 8 UNITS SC ×3 (08:40→18:05)
[2024-01-31] MEDS: NOVOLOG FLEXPEN-HIGH RESISTANCE 4 UNITS SC ×3 (08:40→18:05)
[2024-01-31] MEDS: LEXAPRO 20 MG PO (08:40)
[2024-01-31] MEDS: PROTONIX 40 MG PO (08:40)
[2024-01-31] MEDS: COREG PO (08:41)
[2024-01-31] MEDS: APRESOLINE 25 MG PO ×3 (08:48→22:10)
[2024-01-31] MEDS: NOVOLOG FLEXPEN SC (09:09)
--- NOTE | 2024-01-31 09:36 | CM ---
validation manager continues to follow with patient progress and [employer] Expedited Member Appeal [phone] prompt 3, still in progress. per insurance they have 72 hours to make determination. validation manager will reach out to [facility] and let them
know that appeal is in progress and ask them to keep a bed for patient.
Plan; Await outcome of member appeal.
--- NOTE | 2024-01-31 10:24 | W.PN.HOSP.TC ---
Today's Communication/Plan
-
pt appealed insurance denial to SNF
cont current treatments
Assessment / Plan
Assessment / Plan
pt is a 73 year old male
Acute asthmatic bronchitis--likely due to pna--cont steroids, wean as per pulm--added cough med--change rocephin/doxy to zosyn/zithromax per pulm to cover for pseudomonas and atypicals (MRSA negative) finished, transitioned to every other day
zithromax---COVID/flu negative--apprec pulm input--cont nebs--
Chronic CHF�combined/cardiomyopathy--does not appear to be in acute exacerbation--I/O, daily weights
COPD Hx with acute exacerbation--Continue Wixela or equivalent
Essential HTN--Continue hydralazine, Coreg, valsartan--adjust as needed, usually high in AM before meds
hyponatremia--not significant
Hx haemophilus influenza positive endotracheal source 11/27/2023/Hx of hypoxic hypercapnic respiratory failure requiring 4 days intubation--Completed course of broad-spectrum antibiotics, 9-day course of amoxicillin
DM2-diet controlled--HgbA1c 6.10 November 2023--blood sugars elevated due to steroids--increased lantus to 15 units SQ and added Aspart 8 units with meals--will need adjustments based on steroid wean and sugars
CKD 3B--Creat 1.3 follow BMP
HLD--Continue atorvastatin 10 mg at bedtime
Permanent Pacemaker--Third-degree heart block status post
Pulmonary HTN
Paroxysmal atrial fibrillation---Continue Eliquis 5 mg twice daily, carvedilol 6.25 mg twice daily
Sleep apnea--On current BiPAP unclear settings was on prior CPAP setting 9
Anxiety--Continue Lexapro, BuSpar
Chronic back pain--Continue gabapentin 300 mg twice daily, tramadol 50 mg twice daily as needed
Obesity due to excess calorie consumption�BMI 32.9 kg--Weight loss recommended, healthy heart diet watch carbohydrates
Left hip pain with Chronic ambulatory dysfunction
Chronic constipation-stool softeners
Left retroperitoneal bleed with hemorrhagic shock June 2023
Reported diarrhea x 3 days--none here --cancel check stool WBC, stool culture, C. difficile
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
Code status--Full code
Anticipated Discharge: > 48 hours
Subjective/Interval History
-
Date of Service: January 31, 2024
pt still c/o congestion, cough
Objective Data
-
Vital Signs:
max temp for 24 hours
01/30/24
15:30
Temp 98.0 F
Vital Signs
Temp Pulse Resp BP Pulse Ox
97.8 F 57 16 151/76 96
01/31/24 07:02 01/31/24 08:41 01/31/24 08:14 01/31/24 07:02 01/31/24 08:14
I&O
01/30/24 01/31/24 02/01/24
06:59 06:59 06:59
Intake Total 820 / 820 840 / 840
Balance 820 / 820 840 / 840
Review of Systems
-
All other systems: Reviewed and negative
Respiratory: Reports Cough (congestion)
Physical Exam
-
General: Well Developed, Well Nourished and No Apparent Distress
HEENT: Normocephalic and Atraumatic
Respiratory: Rhonchi (coarse loose sounding)
Cardiac: Regular Rhythm and S1/S2; Negative Murmur
GI: Soft, Nontender, Nondistended and Normal Bowel Sounds
Musculoskeletal: No Clubbing, No Cyanosis and No Edema
[2024-01-31] MEDS: HYCODAN SYRUP 5 ML PO ×2 (10:27→20:52)
[2024-01-31 11:51] LABS: Glucose - Point of Care 249 mg/dl (70-99)
[2024-01-31 15:39] VITALS: BP 118/70
[2024-01-31 18:02] LABS: Glucose - Point of Care 230 mg/dl (70-99)
[2024-01-31] MEDS: MELATONIN 5 MG PO (20:49)
[2024-01-31] MEDS: LIPITOR 10 MG PO (20:49)
[2024-01-31] MEDS: COREG 12.5 MG PO (20:49)
[2024-01-31 21:12] LABS: Glucose - Point of Care 242 mg/dl (70-99)
[2024-01-31] MEDS: LANTUS 0.149999999999999994 UNITS SC (22:10)
[2024-01-31 23:40] VITALS: PULSE 2; PULSE 68
[2024-02-01 03:54] VITALS: PULSE 2
[2024-02-01 06:00] VITALS: BMI 33.1
[2024-02-01] MEDS: DELTASONE 30 MG PO (08:14)
[2024-02-01] MEDS: BUSPAR 10 MG PO ×2 (08:15→19:29)
[2024-02-01] MEDS: ELIQUIS 5 MG PO ×2 (08:15→19:30)
[2024-02-01] MEDS: LEXAPRO 20 MG PO (08:15)
[2024-02-01] MEDS: NEURONTIN 300 MG PO ×2 (08:16→19:29)
[2024-02-01] MEDS: COREG PO (08:16)
[2024-02-01] MEDS: DIOVAN 80 MG PO ×2 (08:16→19:30)
[2024-02-01] MEDS: APRESOLINE 25 MG PO ×3 (08:17→21:57)
[2024-02-01] MEDS: LASIX 40 MG PO (08:17)
[2024-02-01] MEDS: PROTONIX 40 MG PO (08:18)
[2024-02-01] MEDS: DUONEB 3 ML INH ×4 (08:25→20:40)
[2024-02-01] MEDS: PULMICORT 0.5 MG INH ×2 (08:25→20:40)
[2024-02-01 08:27] LABS: Glucose - Point of Care 209 mg/dl (70-99)
[2024-02-01 08:30] VITALS: BP 111/56
[2024-02-01] MEDS: NOVOLOG FLEXPEN 8 UNITS SC ×3 (09:54→17:44)
[2024-02-01] MEDS: NOVOLOG FLEXPEN-HIGH RESISTANCE 4 UNITS SC ×2 (09:54→13:10)
[2024-02-01 10:53] LABS: Blood Urea Nitrogen 35 mg/dl (9-20); Calcium 9.3 mg/dl (8.4-10.2); Carbon Dioxide 29 mmol/L (22-30); Chloride 100 mmol/L (98-107); Estimated Creatinine Clearance 68 ml/min; Glucose 174 mg/dl (70-99); Magnesium 1.8 mg/dl (1.6-2.3); Potassium 4.3 mmol/L (3.5-5.1); Sodium 132 mmol/L (135-145); eGFR > 60.00
--- NOTE | 2024-02-01 11:50 | W.PN.HOSP.TC ---
Today's Communication/Plan
-
waiting for insurance decisions
Assessment / Plan
Assessment / Plan
pt is a 73 year old male
Acute asthmatic bronchitis--likely due to pna--cont steroids, wean as per pulm--added cough med--change rocephin/doxy to zosyn/zithromax per pulm to cover for pseudomonas and atypicals (MRSA negative) finished, transitioned to every other day
zithromax---COVID/flu negative--apprec pulm input--cont nebs
Chronic CHF�combined/cardiomyopathy--does not appear to be in acute exacerbation--I/O, daily weights
COPD Hx with acute exacerbation--Continue Wixela or equivalent
Essential HTN--Continue hydralazine, Coreg, valsartan--adjust as needed, usually high in AM before meds
hyponatremia--not significant
Hx haemophilus influenza positive endotracheal source 11/27/2023/Hx of hypoxic hypercapnic respiratory failure requiring 4 days intubation--Completed course of broad-spectrum antibiotics, 9-day course of amoxicillin
DM2-diet controlled--HgbA1c 6.10 November 2023--blood sugars elevated due to steroids--increased lantus to 15 units SQ and added Aspart 8 units with meals--will need adjustments based on steroid wean and sugars
CKD 3B--Creat 1.3 follow BMP
HLD--Continue atorvastatin 10 mg at bedtime
Permanent Pacemaker--Third-degree heart block status post
Pulmonary HTN
Paroxysmal atrial fibrillation---Continue Eliquis 5 mg twice daily, carvedilol 6.25 mg twice daily
Sleep apnea--On current BiPAP unclear settings was on prior CPAP setting 9
Anxiety--Continue Lexapro, BuSpar
Chronic back pain--Continue gabapentin 300 mg twice daily, tramadol 50 mg twice daily as needed
Obesity due to excess calorie consumption�BMI 32.9 kg--Weight loss recommended, healthy heart diet watch carbohydrates
Left hip pain with Chronic ambulatory dysfunction
Chronic constipation-stool softeners
Left retroperitoneal bleed with hemorrhagic shock June 2023
Reported diarrhea x 3 days--none here --cancel check stool WBC, stool culture, C. difficile
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
Code status--Full code
Anticipated Discharge: 24 - 48 hours
Subjective/Interval History
-
Date of Service: February 01, 2024
pt wants imodium
Objective Data
-
Labs:
Laboratory Results
02/01/24
10:16
Sodium 132 L
Potassium 4.3
Chloride 100
Carbon Dioxide 29
BUN 35 H
Creatinine 1.2
Glucose 174 H
Calcium 9.3
Vital Signs:
max temp for 24 hours
01/31/24
15:39
Temp 97.9 F
Vital Signs
Temp Pulse Resp BP Pulse Ox
97.5 F 51 18 111/56 96
02/01/24 08:30 02/01/24 08:30 02/01/24 08:30 02/01/24 08:30 02/01/24 08:30
I&O
01/31/24 02/01/24 02/02/24
06:59 06:59 06:59
Intake Total 840 / 840 1320 / 1320
Balance 840 / 840 1320 / 1320
Review of Systems
-
All other systems: Reviewed and negative
Physical Exam
-
General: Well Developed, Well Nourished and No Apparent Distress
HEENT: Normocephalic and Atraumatic
Respiratory: Clear to Auscultation; Negative Wheezes or Rhonchi
Cardiac: Regular Rhythm and S1/S2; Negative Murmur
GI: Soft, Nontender, Nondistended and Normal Bowel Sounds
Musculoskeletal: No Clubbing, No Cyanosis and No Edema
Neuro: Awake
[2024-02-01 13:10] LABS: Glucose - Point of Care 234 mg/dl (70-99)
[2024-02-01] MEDS: IMODIUM 2 MG PO ×2 (13:10→19:29)
[2024-02-01 15:20] VITALS: BP 133/74
[2024-02-01 17:42] LABS: Glucose - Point of Care 369 mg/dl (70-99)
[2024-02-01] MEDS: NOVOLOG FLEXPEN-HIGH RESISTANCE 12 UNITS SC (17:43)
[2024-02-01] MEDS: DESENEX/MITRAZOL/ZEASORB 1 APPLIC TOPICAL (19:34)
[2024-02-01] MEDS: COREG 12.5 MG PO (19:34)
[2024-02-01 21:14] LABS: Glucose - Point of Care 262 mg/dl (70-99)
[2024-02-01] MEDS: LIPITOR 10 MG PO (21:51)
[2024-02-01] MEDS: LANTUS 0.149999999999999994 UNITS SC (21:51)
[2024-02-01] MEDS: MELATONIN 5 MG PO (21:52)
[2024-02-01] MEDS: HYCODAN SYRUP 5 ML PO (21:57)
[2024-02-01 22:42] VITALS: PULSE 2; PULSE 59
[2024-02-01 23:40] VITALS: BP 115/57
[2024-02-02 03:51] VITALS: PULSE 2
[2024-02-02 07:19] LABS: Hematocrit 32.9 % (39.0-52.0); Hemoglobin 11.3 g/dL (13.0-18.0); Mean Corp Hgb Conc. 34.3 g/dL (33.0-37.0); Mean Corpuscular Hgb 30.9 pg (27.0-31.0); Mean Corpuscular Volume 89.9 fL (80.0-94.0); Mean Platelet Volume 12.9 fL (7.4-10.4); Platelet Count 153 10^3/uL (130-400); Red Blood Cell Count 3.66 10^6/uL (4.70-6.10); Red Cell Dist. Width 14.3 % (11.5-14.5); White Blood Cell Count 12.6 10^3/uL (4.8-10.8)
[2024-02-02 08:00] VITALS: BP 155/69
[2024-02-02] MEDS: DUONEB 3 ML INH ×4 (08:15→19:54)
[2024-02-02] MEDS: PULMICORT 0.5 MG INH ×2 (08:15→19:54)
[2024-02-02 08:25] LABS: Blood Urea Nitrogen 39 mg/dl (9-20); Calcium 9.1 mg/dl (8.4-10.2); Carbon Dioxide 29 mmol/L (22-30); Chloride 100 mmol/L (98-107); Estimated Creatinine Clearance 63 ml/min; Glucose 186 mg/dl (70-99); Magnesium 1.8 mg/dl (1.6-2.3); Potassium 4.4 mmol/L (3.5-5.1); Sodium 132 mmol/L (135-145); eGFR 57.29
[2024-02-02 08:50] LABS: Glucose - Point of Care 152 mg/dl (70-99)
[2024-02-02] MEDS: NOVOLOG FLEXPEN 8 UNITS SC ×3 (09:18→18:11)
[2024-02-02] MEDS: NOVOLOG FLEXPEN-HIGH RESISTANCE 2 UNITS SC (09:18)
[2024-02-02] MEDS: DELTASONE 20 MG PO (09:19)
[2024-02-02] MEDS: APRESOLINE 25 MG PO ×3 (09:19→22:27)
[2024-02-02] MEDS: COREG 12.5 MG PO ×2 (09:19→20:34)
[2024-02-02] MEDS: BUSPAR 10 MG PO ×2 (09:19→20:26)
[2024-02-02] MEDS: DESENEX/MITRAZOL/ZEASORB 1 APPLIC TOPICAL ×2 (09:20→20:26)
[2024-02-02] MEDS: DIOVAN 80 MG PO (09:22)
[2024-02-02] MEDS: LASIX 40 MG PO (09:23)
[2024-02-02] MEDS: ZITHROMAX 250 MG PO (09:23)
[2024-02-02] MEDS: PROTONIX 40 MG PO (09:23)
[2024-02-02] MEDS: LEXAPRO 20 MG PO (09:23)
[2024-02-02] MEDS: ELIQUIS 5 MG PO ×2 (09:23→20:26)
[2024-02-02] MEDS: NEURONTIN 300 MG PO ×2 (09:23→20:27)
--- NOTE | 2024-02-02 09:49 | CM ---
medical reimbursement manager reviewed patient's chart still waiting on outcome of member appeal, telephonic case manager did reach out to Keri [phone] in admissions at [facility] and she will have a private room, for patient if appeal is successful, referral also
sent to [facility].
Plan; Waiting on the determination from member appeal on skilled placement at [facility].
--- NOTE | 2024-02-02 10:34 | W.PN.HOSP.TC ---
Today's Communication/Plan
-
Will keep 1 more day while awaiting insurance authorization
Add expectorant
Related to him not to be able to do much more in the hospital versus continuation of therapy as he goes to rehab does not require oxygen
Will continue on slow steroid taper
Assessment / Plan
Assessment / Plan
pt is a 73 year old male
Acute asthmatic bronchitis--likely due to pna--cont steroids, wean as per pulm--added cough med--change rocephin/doxy to zosyn/zithromax per pulm to cover for pseudomonas and atypicals (MRSA negative) finished, transitioned to every other day
zithromax---COVID/flu negative--apprec pulm input--cont nebs/add expectorant in the form of guaifenesin as still unable to produce sputum/encourage Acapella
Chronic CHF�combined/cardiomyopathy--does not appear to be in acute exacerbation--I/O, daily weights
COPD Hx with acute exacerbation--Continue Wixela or equivalent
Essential HTN--Continue hydralazine, Coreg, valsartan--adjust as needed, usually high in AM before meds
hyponatremia--not significant
Hx haemophilus influenza positive endotracheal source 11/27/2023/Hx of hypoxic hypercapnic respiratory failure requiring 4 days intubation--Completed course of broad-spectrum antibiotics, 9-day course of amoxicillin
DM2-diet controlled--HgbA1c 6.10 November 2023--blood sugars elevated due to steroids--increased lantus to 15 units SQ and added Aspart 8 units with meals--will need adjustments based on steroid wean and sugars
CKD 3B--Creat 1.3 follow BMP
HLD--Continue atorvastatin 10 mg at bedtime
Permanent Pacemaker--Third-degree heart block status post
Pulmonary HTN
Paroxysmal atrial fibrillation---Continue Eliquis 5 mg twice daily, carvedilol 6.25 mg twice daily
Sleep apnea--On current BiPAP unclear settings was on prior CPAP setting 9
Anxiety--Continue Lexapro, BuSpar
Chronic back pain--Continue gabapentin 300 mg twice daily, tramadol 50 mg twice daily as needed
Obesity due to excess calorie consumption�BMI 32.9 kg--Weight loss recommended, healthy heart diet watch carbohydrates
Left hip pain with Chronic ambulatory dysfunction
Chronic constipation-stool softeners
Left retroperitoneal bleed with hemorrhagic shock June 2023
Reported diarrhea x 3 days--none here --cancel check stool WBC, stool culture, C. difficile
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
Code status--Full code
Anticipated Discharge: Within 24 hours
Subjective/Interval History
-
Date of Service: February 02, 2024
Patient still with very hoarse cough that is remains quite congested but cannot produce sputum/he is anxious and states that he is now basically very to go to rehab I need at least 1 more day'.
Objective Data
-
Labs:
Laboratory Results
02/02/24
06:46
WBC 12.6 H
Hgb 11.3 L
Hct 32.9 L
Plt Count 153 D
Sodium 132 L
Potassium 4.4
Chloride 100
Carbon Dioxide 29
BUN 39 H
Creatinine 1.3
Glucose 186 H
Calcium 9.1
Vital Signs:
Vital Signs
Temp Pulse Resp BP Pulse Ox
97.6 F 57 20 115/57 98
02/01/24 23:40 02/01/24 23:40 02/01/24 23:40 02/01/24 23:40 02/01/24 23:40
I&O
02/01/24 02/02/24 02/03/24
06:59 06:59 06:59
Intake Total 1320 / 1320 1320 / 1320 520 / 520
Balance 1320 / 1320 1320 / 1320 520 / 520
Review of Systems
-
History Source: Patient
Constitutional: Reports No Symptoms
Respiratory: Reports Cough, Wheezing and Pleurisy
Physical Exam
-
General: Well Developed and Obese
HEENT: Normocephalic
Respiratory: Wheezes, Rales, Rhonchi and Crackles
Cardiac: Regular Rhythm
GI: Soft, Nontender and Nondistended
Skin: Warm and Dry
Neuro: Awake
Psych: Calm
Data Reviewed
-
Total Time Spent with Patient (in minutes): 45
Labs: Labs Reviewed by me (56)
[2024-02-02 12:18] LABS: Glucose - Point of Care 200 mg/dl (70-99)
[2024-02-02 12:33] VITALS: BMI 32.9
[2024-02-02] MEDS: NOVOLOG FLEXPEN-HIGH RESISTANCE 4 UNITS SC ×2 (13:06→18:10)
[2024-02-02] MEDS: MUCINEX 1200 MG PO ×2 (13:07→20:26)
[2024-02-02] MEDS: HYCODAN SYRUP 5 ML PO ×2 (13:14→22:27)
[2024-02-02 15:38] VITALS: BP 112/60
[2024-02-02] MEDS: DUONEB INH ×2 (15:39→16:23)
[2024-02-02 17:13] LABS: Glucose - Point of Care 215 mg/dl (70-99)
[2024-02-02] MEDS: DIOVAN PO (20:35)
[2024-02-02 22:26] LABS: Glucose - Point of Care 234 mg/dl (70-99)
[2024-02-02] MEDS: LANTUS 0.149999999999999994 UNITS SC (22:27)
[2024-02-02] MEDS: MELATONIN 5 MG PO (22:27)
[2024-02-02] MEDS: LIPITOR 10 MG PO (22:27)
[2024-02-02 23:00] VITALS: BP 121/59
[2024-02-02 23:45] VITALS: PULSE 2
[2024-02-03 04:16] VITALS: PULSE 2
[2024-02-03 05:59] VITALS: BMI 32.9
[2024-02-03] MEDS: PULMICORT 0.5 MG INH (07:45)
[2024-02-03] MEDS: DUONEB 3 ML INH ×3 (07:45→20:22)
[2024-02-03 07:58] LABS: Glucose - Point of Care 167 mg/dl (70-99)
[2024-02-03] MEDS: APRESOLINE 25 MG PO ×2 (08:24→21:36)
[2024-02-03] MEDS: COREG PO (08:25)
[2024-02-03] MEDS: BUSPAR 10 MG PO ×2 (08:25→19:27)
[2024-02-03] MEDS: DIOVAN 80 MG PO ×2 (08:25→19:32)
[2024-02-03] MEDS: DELTASONE 20 MG PO (08:25)
[2024-02-03] MEDS: LEXAPRO 20 MG PO (08:26)
[2024-02-03] MEDS: LASIX 40 MG PO (08:26)
[2024-02-03] MEDS: ELIQUIS 5 MG PO ×2 (08:26→19:27)
[2024-02-03] MEDS: ULTRAM 50 MG PO (08:26)
[2024-02-03] MEDS: PROTONIX 40 MG PO (08:26)
[2024-02-03] MEDS: MUCINEX 1200 MG PO ×2 (08:26→19:27)
[2024-02-03] MEDS: NEURONTIN 300 MG PO ×2 (08:26→19:27)
[2024-02-03] MEDS: DESENEX/MITRAZOL/ZEASORB 1 APPLIC TOPICAL ×2 (08:29→19:28)
[2024-02-03 08:43] VITALS: BP 149/75
[2024-02-03] MEDS: NOVOLOG FLEXPEN 8 UNITS SC ×3 (09:05→18:02)
[2024-02-03] MEDS: NOVOLOG FLEXPEN-HIGH RESISTANCE 2 UNITS SC ×2 (09:05→13:25)
[2024-02-03] MEDS: HYCODAN SYRUP 5 ML PO ×2 (10:49→21:36)
--- NOTE | 2024-02-03 11:02 | W.PN.HOSP.TC ---
Today's Communication/Plan
-
Still awaiting insurance authorization for his rehab
Continues to have a harsh cough
Latest chest x-ray continues to show improvement in left lower lobe possible pneumonia infiltrate
Will repeat chest x-ray
Assessment / Plan
Assessment / Plan
pt is a 73 year old male
Acute asthmatic bronchitis--likely due to pna--cont steroids, wean as per pulm--added cough med--change rocephin/doxy to zosyn/zithromax per pulm to cover for pseudomonas and atypicals (MRSA negative) finished, transitioned to every other day
zithromax---COVID/flu negative--apprec pulm input--cont nebs/add expectorant in the form of guaifenesin as still unable to produce sputum/encourage Acapella
Chronic CHF�combined/cardiomyopathy--does not appear to be in acute exacerbation--I/O, daily weights
COPD Hx with acute exacerbation--Continue Wixela or equivalent
Essential HTN--Continue hydralazine, Coreg, valsartan--adjust as needed, usually high in AM before meds
hyponatremia--not significant
Hx haemophilus influenza positive endotracheal source 11/27/2023/Hx of hypoxic hypercapnic respiratory failure requiring 4 days intubation--Completed course of broad-spectrum antibiotics, 9-day course of amoxicillin
DM2-diet controlled--HgbA1c 6.10 November 2023--blood sugars elevated due to steroids--increased lantus to 15 units SQ and added Aspart 8 units with meals--will need adjustments based on steroid wean and sugars
CKD 3B--Creat 1.3 follow BMP
HLD--Continue atorvastatin 10 mg at bedtime
Permanent Pacemaker--Third-degree heart block status post
Pulmonary HTN
Paroxysmal atrial fibrillation---Continue Eliquis 5 mg twice daily, carvedilol 6.25 mg twice daily
Sleep apnea--On current BiPAP unclear settings was on prior CPAP setting 9
Anxiety--Continue Lexapro, BuSpar
Chronic back pain--Continue gabapentin 300 mg twice daily, tramadol 50 mg twice daily as needed
Obesity due to excess calorie consumption�BMI 32.9 kg--Weight loss recommended, healthy heart diet watch carbohydrates
Left hip pain with Chronic ambulatory dysfunction
Chronic constipation-stool softeners
Left retroperitoneal bleed with hemorrhagic shock June 2023
Reported diarrhea x 3 days--none here --cancel check stool WBC, stool culture, C. difficile
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
Code status--Full code
Anticipated Discharge: Within 24 hours
Subjective/Interval History
-
Date of Service: February 03, 2024
Beverley is still having very harsh cough and congestion complains of intermittent chest pain when he takes a deep breath or when he coughs
Objective Data
-
Vital Signs:
Vital Signs
Temp Pulse Resp BP Pulse Ox
97.5 F 57 20 149/75 95
02/03/24 08:43 02/03/24 08:43 02/03/24 08:43 02/03/24 08:43 02/03/24 08:43
I&O
02/02/24 02/03/24 02/04/24
06:59 06:59 06:59
Intake Total 1320 / 1320 1900 / 1900
Balance 1320 / 1320 1900 / 1900
Physical Exam
-
General: Well Developed
Respiratory: Rhonchi
Cardiac: Regular Rhythm
GI: Soft
Data Reviewed
-
Total Time Spent with Patient (in minutes): 56
Labs: Labs Reviewed by me
[2024-02-03] MEDS: DUONEB INH (12:01)
[2024-02-03 12:33] LABS: Glucose - Point of Care 178 mg/dl (70-99)
[2024-02-03 15:45] VITALS: BP 106/62
[2024-02-03] MEDS: APRESOLINE PO (16:08)
[2024-02-03 16:57] LABS: Glucose - Point of Care 217 mg/dl (70-99)
[2024-02-03] MEDS: NOVOLOG FLEXPEN-HIGH RESISTANCE 4 UNITS SC (18:02)
[2024-02-03] MEDS: COREG 12.5 MG PO (19:32)
[2024-02-03 21:19] LABS: Glucose - Point of Care 261 mg/dl (70-99)
[2024-02-03] MEDS: LANTUS 0.149999999999999994 UNITS SC (21:35)
[2024-02-03] MEDS: MELATONIN 5 MG PO (21:36)
[2024-02-03] MEDS: LIPITOR 10 MG PO (21:36)
[2024-02-03 22:56] VITALS: PULSE 2; PULSE 75
[2024-02-04] VITALS: BP 130/66
[2024-02-04 02:18] VITALS: PULSE 2
[2024-02-04 06:00] VITALS: BMI 33.4
[2024-02-04 07:30] VITALS: BP 155/71
[2024-02-04 07:34] LABS: Glucose - Point of Care 161 mg/dl (70-99)
[2024-02-04] MEDS: DUONEB 3 ML INH (08:03)
[2024-02-04] MEDS: COREG 12.5 MG PO (09:32)
[2024-02-04] MEDS: LEXAPRO 20 MG PO (09:32)
[2024-02-04] MEDS: DELTASONE 20 MG PO (09:34)
[2024-02-04] MEDS: NEURONTIN 300 MG PO (09:35)
[2024-02-04] MEDS: PROTONIX 40 MG PO (09:35)
[2024-02-04] MEDS: APRESOLINE 25 MG PO (09:35)
[2024-02-04] MEDS: BUSPAR 10 MG PO (09:35)
[2024-02-04] MEDS: LASIX 40 MG PO (09:35)
[2024-02-04] MEDS: ZITHROMAX 250 MG PO (09:36)
[2024-02-04] MEDS: DIOVAN 80 MG PO (09:36)
[2024-02-04] MEDS: MUCINEX 1200 MG PO (09:36)
[2024-02-04] MEDS: NOVOLOG FLEXPEN 8 UNITS SC ×2 (09:36→13:16)
[2024-02-04] MEDS: DESENEX/MITRAZOL/ZEASORB 1 APPLIC TOPICAL (09:37)
[2024-02-04] MEDS: NOVOLOG FLEXPEN-HIGH RESISTANCE 2 UNITS SC ×2 (09:37→13:16)
[2024-02-04] MEDS: ELIQUIS 5 MG PO (09:37)
--- NOTE | 2024-02-04 10:13 | W.DS.TRANS ---
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
-
Discharge Instructions:
Discharge Diagnosis/Procedures Acute asthmatic bronchitis from pneumonia,
chronic mixed congestive heart failure without
exacerbation, chronic obstructive pulmonary
disease with exacerbation, essential
hypertension, hyponatremia, type 2 diabetes
mellitus, chronic kidney disease stage IIIb,
hyperlipidemia, permanent pacemaker, pulmonary
hypertension, paroxysmal atrial fibrillation,
sleep apnea, anxiety, chronic back pain, obesity
due to excess calories, chronic constipation,
history of left retroperitoneal bleed
Diet Diabetic, Carb Controlled,Low Sodium
Activity As tolerated
Driving Restrictions As prior to admission
Bathing Restrictions None
Instructions:
Stand-Alone Forms:
Changes to Home Medications: Yes
Discharge Medications:
DC Medications w/original date entered in [employer]
atorvastatin 10 mg tablet (Lipitor) 10 mg PO HS High cholesterol 09/04/22
escitalopram oxalate 20 mg tablet (Lexapro) 20 mg PO DAILY Depression 09/04/22
fluticasone 100 mcg-salmeterol 50 mcg/dose blistr powdr for inhalation (Wixela Inhub) 1 inh inhalation R BID Lung/breathing issues 09/05/22
apixaban 5 mg tablet (Eliquis) 5 mg PO BID Blood thinner #30 tabs 05/06/23
gabapentin 300 mg capsule 300 mg PO BID Pain 06/12/23
buspirone 10 mg tablet 10 mg PO BID Mental Health/Anxiety 11/27/23
pantoprazole 40 mg tablet,delayed release (Protonix) 40 mg PO DAILY Gastrointestinal Issue 11/27/23
valsartan 80 mg tablet 80 mg PO BID Blood Pressure 11/27/23
polyethylene glycol 3350 17 gram oral powder packet (Miralax) 17 g PO DAILYPRN PRN constipation 01/22/24
tramadol 50 mg tablet 50 mg PO BIDPRN PRN moderate pains 01/22/24
Insulin Glargine Lantus [Lantus] 10 units As Directed mls/hr SC HS Diabetes 01/30/24
acetaminophen 325 mg tablet 650 mg (2 x 325 mg) PO Q4HPRN PRN mild pain/MALDONADO/temp> 100.4F #0 tabs 01/30/24
azithromycin 250 mg tablet 250 mg PO Q48H Lung/breathing issues #6 tabs 01/30/24
bisacodyl 10 mg rectal suppository 10 mg CA [id number] PRN constipation #0 ea 01/30/24
budesonide 0.5 mg/2 mL suspension for nebulization 0.5 mg (2 mL) inhalation R BID #0 mL 01/30/24
carvedilol 12.5 mg tablet 12.5 mg PO BID Blood pressure #10 tabs 01/30/24
furosemide 40 mg tablet 40 mg PO DAILY Fluid retention/Swelling #0 tabs 01/30/24
hydralazine 25 mg tablet 37.5 mg (1.5 x 25 mg) PO TID Blood pressure #0 tabs 01/30/24
insulin aspart U-100 100 unit/mL (3 mL) subcutaneous pen 5 unit (0.05 mL) SC AC Diabetes #0 mL 01/30/24
ipratropium 0.5 mg-albuterol 3 mg (2.5 mg base)/3 mL nebulization soln 3 ml inhalation R QID Lung/breathing issues #0 mL 01/30/24
melatonin 5 mg tablet 5 mg PO HS insomnia #0 tabs 01/30/24
polyvinyl alcohol-povidone (PF) 1.4 %-0.6 % eye drops in a dropperette (Refresh Classic (PF)) 1 drops ophthalmic (eye) QIDPRN PRN dry eyes #0 ea 01/30/24
prednisone 20 mg tablet 30 mg (1.5 x 20 mg) PO DAILY Anti-inflammatory #0 tabs 01/30/24
sennosides 8.6 mg-docusate sodium 50 mg tablet (Stool Softener-Stimulant Laxative) 1 tab PO BIDPRN PRN constipation #0 tabs 01/30/24
Home Medication Changes
prednisone 20 mg tablet 30 mg (1.5 x 20 mg) PO DAILY Anti-inflammatory #0 tabs 01/30/24
sennosides 8.6 mg-docusate sodium 50 mg tablet (Stool Softener-Stimulant Laxative) 1 tab PO BIDPRN PRN constipation #0 tabs 01/30/24
Pending Results: No
[2024-02-04 10:50] LABS: Hematocrit 33.2 % (39.0-52.0); Hemoglobin 11.4 g/dL (13.0-18.0); Mean Corp Hgb Conc. 34.3 g/dL (33.0-37.0); Mean Corpuscular Hgb 30.7 pg (27.0-31.0); Mean Corpuscular Volume 89.5 fL (80.0-94.0); Platelet Count 161 10^3/uL (130-400); Red Blood Cell Count 3.71 10^6/uL (4.70-6.10); Red Cell Dist. Width 14.3 % (11.5-14.5); White Blood Cell Count 12.4 10^3/uL (4.8-10.8)
--- NOTE | 2024-02-04 11:37 | CM ---
Addendum entered by Portia Rehman 02/04/24 16:02:
Patient will need [facility], BiPAP information provided to Keri at [facility].
Original Note:
accounting office manager reached out to the member expedited appeal line and patient has been approved for 7 days skilled, plan is for patient to go to [facility] today, nurse outreach case manager spoke with Keri in admissions at [facility] and they have a private room
available for patient today.
[facility] Auth [phone], 7 days skilled 02/03-02/10
Report [phone]

Plan; 3pm ambulance to [facility] today.
[2024-02-04 12:43] LABS: Glucose - Point of Care 192 mg/dl (70-99)
[2024-02-04 13:28] LABS: Blood Urea Nitrogen 45 mg/dl (9-20); Calcium 8.8 mg/dl (8.4-10.2); Carbon Dioxide 25 mmol/L (22-30); Chloride 101 mmol/L (98-107); Estimated Creatinine Clearance 63 ml/min; Glucose 165 mg/dl (70-99); Potassium 4.7 mmol/L (3.5-5.1); Sodium 133 mmol/L (135-145); eGFR 57.29
[2024-02-04 15:15] VITALS: BP 119/58
== END 2024-02-04 15:28 | DRG 190 ==
LOC: 4 WEST ACU 19:22
PROVIDERS: Clinical Nurse Specialist Family Health; Emergency Medicine; Internal Medicine; Nurse Practitioner; ADMITTING PHYSICIAN Internal Medicine; ATTENDING PHYSICIAN Internal Medicine; CONSULT PHYSICIAN Internal Medicine Pulmonary Disease; EMERGENCY PHYSICIAN Emergency Medicine; FAMILY PHYSICIAN Internal Medicine
DX: J44.1 Chronic obstructive pulmonary disease with (acute) exacerbation (principal); J18.1 Lobar pneumonia, unspecified organism; J18.9 Pneumonia, unspecified organism; J45.902 Unspecified asthma with status asthmaticus; I13.0 Hypertensive heart and chronic kidney disease with heart failure and stage 1 through stage 4 chronic kidney disease, or unspecified chronic kidney disease; I50.42 Chronic combined systolic (congestive) and diastolic (congestive) heart failure; I42.9 Cardiomyopathy, unspecified; E66.2 Morbid (severe) obesity with alveolar hypoventilation; J44.0 Chronic obstructive pulmonary disease with (acute) lower respiratory infection; I48.0 Paroxysmal atrial fibrillation; N18.32 Chronic kidney disease, stage 3b; E11.65 Type 2 diabetes mellitus with hyperglycemia; I27.20 Pulmonary hypertension, unspecified; Z95.0 Presence of cardiac pacemaker; Z68.33 Body mass index [BMI] 33.0-33.9, adult
CPT/HCPCS: 71046; 80048; 80053; 81003; 82947; 82962; 83735; 83880; 84132; 84145; 85025; 85027; 86803; 87040; 87070; 87502; 87811; 93005; 94640; 94660; 96374; 97116; 97530; 97535; 99285

== ENCOUNTER 2024-04-09 21:12 | Observation (INO) | payer MEDICARE, OTHER, SELFPAY ==
[2024-04-09] VITALS (8 sets, daily range): BP systolic 97–140; BP diastolic 42–71; BMI 33.9; BMI 35.0
--- NOTE | 2024-04-09 18:56 | ED.GENMED ---
History of Present Illness
General
Chief Complaint: Abdominal Symptoms
Source: patient
Exam Limitations: none
Time Seen by Provider: 04/09/24 17:48
History of Present Illness
History of Present Illness:
73-year-old male with history of COPD CHF A-fib has a pacemaker presents with 2 days worth of uncontrollable diarrhea. He notes loose watery stools several times a day. He denies any blood in the stool. He lives by himself in an apartment. He
was here recently and discharged to rehab facility. He has been home from the rehab facility for about a week. He was here for pneumonia was on antibiotics. Is not currently on an antibiotic. No urinary symptoms. He also notes increased
swelling of his legs.
Past History
Past History
ED Past Medical History: Arrthythmia (Atrial fib), Asthma, CHF, COPD, HTN, IDDM and Other (Sleep apnea uses CPAP, )
ED Past Surgical History: Cardiac (Pacemaker), Orthopedic (Right hip surgery, Back surgery, ) and Tonsilectomy
Social History
Tobacco: Non-smoker
Alcohol: None
Personal: Single
Living: with family (Sister)
Family History
Family History: Unable to obtain
Phy Exam
Physical Exam
Physical Exam:
General obese unkempt male no acute respiratory distress
HEENT: Normocephalic atraumatic
Heart: Regular rate and rhythm no murmurs lungs: Breath sounds distant bilaterally secondary to body habitus
Extremities: Pitting edema bilateral lower extremity
Abdomen is soft nontender no guarding
Course
Orders/Labs/Results
Orders:
Orders
04/09/24 18:03
Interrogate Pacemaker- Treatment ONCE
STOOL [C difficile Antigen & Toxins] Urgent
CHAD Source: Feces/Stool
Specimen Description:
Stool Culture Urgent
CHAD Source: Feces/Stool
Specimen Description:
CR Chest - 2 Views Urgent
Comment:
Reason For Exam: cough
04/09/24 20:11
Complete Blood Count/With Diff Urgent
Comprehensive Metabolic Panel Urgent
NT-proBNP Urgent
Troponin I Urgent
Abnormal Lab Results
04/09/24
20:11
RBC 3.69 L 10^6/uL
(4.70-6.10)
Hgb 11.5 L g/dL
(13.0-18.0)
Hct 32.6 L %
(39.0-52.0)
MCH 31.2 H pg
(27.0-31.0)
RDW 14.9 H %
(11.5-14.5)
MPV 12.8 H fL
(7.4-10.4)
Absolute Neuts (auto) 7.2 H 10^3/uL
(1.4-6.5)
Lymphocytes % 18.0 L %
(20.5-51.1)
BUN 32 H mg/dl
(9-20)
Creatinine 1.8 H mg/dL
(0.7-1.3)
Glucose 157 H mg/dl
(70-99)
04/09/24 20:11
04/09/24 20:11
Vital Signs
Initial and Last Documented VS:
Initial Vital Signs
Pulse Resp Pulse Ox
64 16 93
04/09/24 15:32 04/09/24 15:32 04/09/24 15:32
Last Documented Vital Signs
Temp Pulse Resp BP Pulse Ox
98 F 62 15 110/55 92
04/09/24 15:33 04/09/24 19:00 04/09/24 19:00 04/09/24 18:00 04/09/24 19:00
MDM/Problems Addressed
Differential Diagnosis Includes:
Fatigue, diarrhea, shortness of breath and leg swelling. Presentation could be multifactorial. Recent hospitalization does put him at risk for C. difficile. Stool cultures will be ordered if provided. Patient does have edema in both legs
consider volume overload or CHF. Chest x-ray pending with BNP.
*Critical Care Note
Total Time (30-74mins, 75-104mins- exclusive of procedures): Not Applicable
Update Note
Update Note:
Patient with creatinine that is worse than usual. He has acute kidney injury. Stool studies not provided at this time. Chest x-ray clear. Patient very weak unable to function at home by himself. Will admit to hospital for acute kidney injury in
the setting of diarrhea. Stool studies pending
ED Attending Note
-
Portions of this chart may have been created with voice recognition software.� Occasional wrong word or��sound alike� substitutions may have occurred due to the inherent limitations of voice recognition software.
Discharge Plan
Departure
Patient Disposition: Admit
Date of Disposition: 04/09/24
Time of Disposition: 20:48
Admit to: Telemetry
Presentation/result/management discussed w/ accepting MD/DO: Hospitalist
Discharge Problem:
Diarrhea, NAOMI (acute kidney injury)
Prescriptions:
No Action
atorvastatin [Lipitor] 10 mg Tablet
10 mg PO HS
escitalopram oxalate [Lexapro] 20 mg Tablet
20 mg PO DAILY
fluticasone propion-salmeterol [Wixela Inhub] 100-50 mcg/dose Blister With Device
1 inh INHALATION R BID
Eliquis 5 mg tablet
5 mg PO BID Qty: 30 0RF
gabapentin 300 mg capsule
300 mg PO BID
valsartan 80 mg Tablet
80 mg PO BID
pantoprazole [Protonix] 40 mg Tablet,Delayed Release (Dr/Ec)
40 mg PO DAILY
buspirone 10 mg Tablet
10 mg PO BID
tramadol 50 mg Tablet
50 mg PO BIDPRN PRN (Reason: moderate pains)
polyethylene glycol 3350 [Miralax] 17 gram Powder In Packet
17 g PO DAILYPRN PRN (Reason: constipation)
acetaminophen 325 mg Tablet
650 mg PO Q4HPRN PRN (Reason: mild pain/MALDONADO/temp> 100.4F) Qty: 0 0RF
carvedilol 12.5 mg Tablet
12.5 mg PO BID Qty: 10 0RF
ipratropium-albuterol 0.5 mg-3 mg(2.5 mg base)/3 mL Solution For Nebulization
3 ml inhalation R QID Qty: 0 0RF
hydralazine 25 mg Tablet
37.5 mg PO TID Qty: 0 0RF
sennosides-docusate sodium [Stool Softener-Stimulant Laxat] 8.6-50 mg Tablet
1 tab PO BIDPRN PRN (Reason: constipation) Qty: 0 0RF
bisacodyl 10 mg Suppository
10 mg VA [id number] PRN (Reason: constipation) Qty: 0 0RF
Refresh Classic (PF) 1.4-0.6 % Dropperette
1 drops ophthalmic (eye) QIDPRN PRN (Reason: dry eyes) Qty: 0 0RF
insulin aspart U-100 100 unit/mL (3 mL) Insulin Pen
5 unit SC AC Qty: 0 0RF
prednisone 20 mg Tablet
30 mg PO DAILY Qty: 0 0RF
Insulin Glargine Lantus [Lantus] 10 UNITS
Subcutaneous Insulin Syringe [Syringe-Insulin] 0 UNIT
As Directed mls/hr SC HS
Reason for use: Diabetes
Ordered By: Renetta Wagner MD
Last Taken: Unknown
budesonide 0.5 mg/2 mL Suspension For Nebulization
0.5 mg inhalation R BID Qty: 0 0RF
melatonin 5 mg Tablet
5 mg PO HS Qty: 0 0RF
furosemide 40 mg Tablet
40 mg PO DAILY Qty: 0 0RF
azithromycin 250 mg tablet
250 mg PO Q48H Qty: 6 0RF
Referrals:
UNKNOWN - PT DOES,NOT KNOW [Family Provider] -
Interventions
Interventions:
*Risk Screen - Suicide Last Done: 04/09/24 15:35
*General Assessment Last Done: 04/09/24 15:35
*Neglect/Abuse Screening Last Done: 04/09/24 15:35
*ED COVID-19 Vaccine History Last Done: 04/09/24 15:35
PA-Ajebke-Xldgbyuona Assessment Last Done: 04/09/24 15:35
Discharge Date and Time
Print Language: FRENCH
[2024-04-09 20:16] LABS: % Basophils 0.6 % (0-2); % Immature Granulocytes 0.4 % (0-0.5); Absolute Basophils 0.1 10^3/uL (0-0.2); Absolute Eosinophils 0.1 10^3/uL (0-0.7); Absolute Lymphocytes 1.7 10^3/uL (1.2-3.4); Absolute Monocytes 0.5 10^3/uL (0.1-0.6); Absolute Neutrophils 7.2 10^3/uL (1.4-6.5); Hematocrit 32.6 % (39.0-52.0); Hemoglobin 11.5 g/dL (13.0-18.0); Mean Corp Hgb Conc. 35.3 g/dL (33.0-37.0); Mean Corpuscular Hgb 31.2 pg (27.0-31.0); Mean Corpuscular Volume 88.3 fL (80.0-94.0); Mean Platelet Volume 12.8 fL (7.4-10.4); Nucleated Red Blood Cells % 0 % (-); Platelet Count 201 10^3/uL (130-400); Red Blood Cell Count 3.69 10^6/uL (4.70-6.10); Red Cell Dist. Width 14.9 % (11.5-14.5); White Blood Cell Count 9.6 10^3/uL (4.8-10.8)
[2024-04-09 20:40] LABS: ALT (SGPT) 14 U/L (0-50); AST (SGOT) 18 U/L (17-59); Albumin 3.8 g/dl (3.5-5.0); Alkaline Phosphatase 76 U/L (38-126); Blood Urea Nitrogen 32 mg/dl (9-20); Calcium 8.8 mg/dl (8.4-10.2); Carbon Dioxide 29 mmol/L (22-30); Chloride 104 mmol/L (98-107); Estimated Creatinine Clearance 46 ml/min; Glucose 157 mg/dl (70-99); Potassium 3.9 mmol/L (3.5-5.1); Sodium 139 mmol/L (135-145); Total Bilirubin 1.2 mg/dl (0.2-1.3); Total Protein 6.4 g/dl (6.3-8.2); eGFR 38.77
[2024-04-09 20:44] LABS: NT-proBNP 312 pg/ml; Troponin I < 0.012 ng/ml
--- NOTE | 2024-04-09 21:06 | HPS.HSE ---
Family Physician
-
Family Physician: NOT KNOW UNKNOWN - PT DOES
Chief Complaint
-
diarrhea
History of Present Illness
73-year-old male past medical history of CHF, atrial fibrillation with pacemaker, COPD, hypertension, pulmonary hypertension, diabetes, sleep apnea, anxiety, chronic back pain, obesity, hyperlipidemia, sciatica presenting with multiple episodes of
watery diarrhea since yesterday night. He denies any blood in the stool. He has chills but denies fever. Nausea without vomiting. He has any abdominal pain apart from stomach rumbling. He denies any cough or shortness of breath. Denies any
urinary symptoms.
He has increased lower extremity edema. He denies gaining any weight and in fact has lost weight.
He complains of neck pain for the past few weeks since going to rehab. He also complains of chronic lower back pain despite laminectomy. He has been taking Tylenol and gabapentin for this.
He denies smoking alcohol use.
Medical History
Past Medical History
Past Medical History: Reports Other (CHF, atrial fibrillation with pacemaker, COPD, hypertension, pulmonary hypertension, diabetes, sleep apnea, anxiety, chronic back pain, obesity, hyperlipidemia, sciatica )
Past Surgical History: Reports Other (Cardiac (Pacemaker), Orthopedic (Right hip surgery, Back surgery, ) and Tonsilectomy)
Social History
Tobacco: Non-smoker
Alcohol: None
Drug: None
Family History
Family History: Not pertinent
Allergies / Home Medications
Allergies reflects when Allergies were last updated in [employer].
Home Medications with original date entered in [employer]
Allergy/Medication List:
Allergies
Allergy/AdvReac Type Severity Reaction Status Date / Time
No Known Allergies Allergy Verified 01/22/24 19:15
Home Medications
atorvastatin 10 mg tablet (Lipitor) 10 mg PO HS High cholesterol 09/04/22
escitalopram oxalate 20 mg tablet (Lexapro) 20 mg PO DAILY Depression 09/04/22
fluticasone 100 mcg-salmeterol 50 mcg/dose blistr powdr for inhalation (Wixela Inhub) 1 inh inhalation R BID Lung/breathing issues 09/05/22
apixaban 5 mg tablet (Eliquis) 5 mg PO BID Blood thinner #30 tabs 05/06/23
gabapentin 300 mg capsule 300 mg PO BID Pain 06/12/23
buspirone 10 mg tablet 10 mg PO BID Mental Health/Anxiety 11/27/23
pantoprazole 40 mg tablet,delayed release (Protonix) 40 mg PO DAILY Gastrointestinal Issue 11/27/23
valsartan 80 mg tablet 80 mg PO BID Blood Pressure 11/27/23
polyethylene glycol 3350 17 gram oral powder packet (Miralax) 17 g PO DAILYPRN PRN constipation 01/22/24
tramadol 50 mg tablet 50 mg PO BIDPRN PRN moderate pains 01/22/24
Insulin Glargine Lantus [Lantus] 10 units As Directed mls/hr SC HS Diabetes 01/30/24
acetaminophen 325 mg tablet 650 mg (2 x 325 mg) PO Q4HPRN PRN mild pain/MALDONADO/temp> 100.4F #0 tabs 01/30/24
azithromycin 250 mg tablet 250 mg PO Q48H Lung/breathing issues #6 tabs 01/30/24
bisacodyl 10 mg rectal suppository 10 mg DE [id number] PRN constipation #0 ea 01/30/24
budesonide 0.5 mg/2 mL suspension for nebulization 0.5 mg (2 mL) inhalation R BID #0 mL 01/30/24
carvedilol 12.5 mg tablet 12.5 mg PO BID Blood pressure #10 tabs 01/30/24
furosemide 40 mg tablet 40 mg PO DAILY Fluid retention/Swelling #0 tabs 01/30/24
hydralazine 25 mg tablet 37.5 mg (1.5 x 25 mg) PO TID Blood pressure #0 tabs 01/30/24
insulin aspart U-100 100 unit/mL (3 mL) subcutaneous pen 5 unit (0.05 mL) SC AC Diabetes #0 mL 01/30/24
ipratropium 0.5 mg-albuterol 3 mg (2.5 mg base)/3 mL nebulization soln 3 ml inhalation R QID Lung/breathing issues #0 mL 01/30/24
melatonin 5 mg tablet 5 mg PO HS insomnia #0 tabs 01/30/24
polyvinyl alcohol-povidone (PF) 1.4 %-0.6 % eye drops in a dropperette (Refresh Classic (PF)) 1 drops ophthalmic (eye) QIDPRN PRN dry eyes #0 ea 01/30/24
prednisone 20 mg tablet 30 mg (1.5 x 20 mg) PO DAILY Anti-inflammatory #0 tabs 01/30/24
sennosides 8.6 mg-docusate sodium 50 mg tablet (Stool Softener-Stimulant Laxative) 1 tab PO BIDPRN PRN constipation #0 tabs 01/30/24
Review of Systems
-
History Source: Patient
A 12 point ROS was completed and negative except as noted: Yes
Constitutional: Reports No Symptoms
EENT: Reports No Symptoms
Respiratory: Reports No Symptoms
Cardiac: Reports No Symptoms
Abdomen/GI: Reports See HPI
: Reports No Symptoms
Musculoskeletal: Reports No Symptoms
Skin: Reports No Symptoms
Neurological: Reports No Symptoms
Endocrine: Reports No Symptoms
Hematologic/Lymphatic: Reports No Symptoms
Psych: Reports No Symptoms
Physical Exam
Vital Signs
Vital Signs
Temp Pulse Resp BP Pulse Ox
98 F 62 15 110/55 92
04/09/24 15:33 04/09/24 19:00 04/09/24 19:00 04/09/24 18:00 04/09/24 19:00
Physical Exam
General: Well Developed, Well Nourished and No Apparent Distress
HEENT: NormoCephalic, Moist mucous membranes and Atraumatic
Respiratory: Clear
Cardiac: S1/S2, Regular Rhythm and Peripheral Edema; No Murmur or Rub
GI: Soft, Non Tender, Non Distended and Normal Bowel Sounds; No Organomegaly
Rectal: Deferred by Provider
Musculoskeletal: No Clubbing, No Cyanosis and No Edema
Skin: No Rash
Neuro: Nonfocal/grossly intact
Laboratory Results
-
04/09/24 20:11
04/09/24 20:11
Laboratory Results
Total Bilirubin 1.2 mg/dl (0.2-1.3) 04/09/24 20:11
AST 18 U/L (17-59) 04/09/24 20:11
ALT 14 U/L (0-50) 04/09/24 20:11
Alkaline Phosphatase 76 U/L (38-126) 04/09/24 20:11
Troponin I < 0.012 ng/ml 04/09/24 20:11
Data Reviewed
-
Lab Data: Labs Reviewed by me
Old Records: Reviewed
Impression/Plan
-
IMPRESSION:
PLAN:
# Acute gastroenteritis
-N.p.o.
-Stool culture, C. difficile pending
-IV fluids
-N.p.o., advance diet in the morning
# Acute kidney injury prerenal on CKD 3B
-IV fluids
-Hold Lasix
-Hold valsartan
COPD
-Continue inhalers
Obstructive sleep apnea
Chronic anemia
-Hemoglobin stable
Paroxysmal atrial fibrillation
-Continue Eliquis
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
Chronic HFpEF
-Cardiac BNP 300
-Not in heart failure despite increased lower extremity
Pulmonary hypertension
Essential hypertension
-Continue Coreg
-Continue hydralazine
Hyponatremia
Type 2 diabetes
-Hold Lantus for now
-Insulin sliding scale
Hyperlipidemia
-Continue statin
Anxiety
-Continue buspirone, Lexapro
Chronic back pain
-Continue tramadol
Obesity secondary to excess calories
Left hip pain with chronic ambulatory dysfunction
Chronic constipation
-Hold bowel regimen
History of left retroperitoneal bleeding hemorrhagic shock
Spinal stenosis/chronic back pain
-Continue Tylenol, gabapentin
Full code
DVT prophylaxis�Eliquis
N.p.o.
--- NOTE | 2024-04-09 21:26 | PHANOTE ---
Addendum entered by Kemar Roberts 04/09/24 22:40:
med rec shahana(04/09/24)-patient's sister called back to confirm medications. Med list confirmed, insulin dosage details were obtained, and confirmed tramadol was no longer taken.
Original Note:
med rec shahana(04/09/24)-patient did not know medications, states there is a list at home. Called sister, she did not know his meds and would not access the list until tomorrow. Med list was compiled using [employer] and [employer].
[2024-04-09] MEDS: NSS 1000 IV (22:41)
--- NOTE | 2024-04-09 23:06 | PTCARENOTE ---
Pt admitted to 2133 from ED. Pulled over to bed x 2. AAOx3, SHELBY. C/o chronic neck and back pain as well as stomach discomfort. Pt denies nausea. Incontinent of urine, pt states scrotum and buttocks 'feel itchy' and on assessment these areas appear
reddened. pt cleaned and new attends placed and barrier cream applied to buttocks, scrotum. Lower legs red with cellulitis R > L. weak pp b/l. Pt forgetful and unsure of medications, states his 'sister gives him his meds and the list should be
there'. Plan of care discussed, pt NPO with meds and sips allowed. Pt using call jimenez to make needs known.
[2024-04-09 23:38] LABS: Glucose - Point of Care 117 mg/dl (70-99)
[2024-04-10] MEDS: ELIQUIS 5 MG PO ×3 (00:31→21:46)
[2024-04-10] MEDS: TYLENOL 650 MG PO (00:31)
[2024-04-10] MEDS: BUSPAR 10 MG PO ×3 (00:31→21:46)
[2024-04-10] MEDS: COREG 12.5 MG PO ×3 (00:34→21:47)
[2024-04-10] MEDS: ADVAIR HFA 45/21 MCG INHALER INH (04:35)
[2024-04-10 06:00] VITALS: BMI 35.0
[2024-04-10 06:29] LABS: Glucose - Point of Care 114 mg/dl (70-99)
[2024-04-10] MEDS: ADVAIR HFA 45/21 MCG INHALER 2 PUFF INH ×2 (07:34→17:59)
[2024-04-10 07:40] VITALS: BP 128/69
[2024-04-10] MEDS: APRESOLINE 50 MG PO (08:33)
[2024-04-10] MEDS: LEXAPRO 20 MG PO (08:34)
[2024-04-10] MEDS: PROTONIX 40 MG PO (08:34)
[2024-04-10] MEDS: NSS 1000 IV (08:36)
[2024-04-10] MEDS: NOVOLOG FLEXPEN-LOW RESISTANCE SC (08:37)
--- NOTE | 2024-04-10 10:11 | W.PN.HOSP.TC ---
Addendum entered and electronically signed by Kemar Veras MD 04/10/24 23:45:
Attending Addendum-
I saw and evaluated the patient. I reviewed the resident�s note and agree with findings and plan as documented in the resident�s note. Sub: complains of pain in chronic back pain. Still with nonbloody diarrhea but improved denies abd pain N/V,
states he is starving Full 12 point ROS reviewed and negative except as documented Exam: Vitals reviewed in chart GEN-NAD heart RRR lungs clear abd soft LE no edema
Plan:
# Acute gastroenteritis
- advance diet
- Stool culture, C. difficile toxin neg ag pos (carrier)
- DC IV fluids
# Acute kidney injury on CKD 3a
- baseline @ 1.3
- IV fluids
- Hold Lasix
- Hold valsartan
# Hypokalemia-
- replete
- repeat BMP in am
# COPD
-Continue inhalers
# Obstructive sleep apnea
# Chronic anemia
-Hemoglobin stable
# Paroxysmal atrial fibrillation
-Continue Eliquis
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
# Chronic HFpEF
- Cardiac BNP 300
- Not in heart failure despite increased lower extremity
- restart lasix in am
- repeat BMP daily
# Pulmonary hypertension
# Essential hypertension
-Continue Coreg
-Continue hydralazine
# Hyponatremia
- resolved
# Type 2 diabetes
-advance diet
-restart lantus
-cont Insulin sliding scale
Hyperlipidemia
-Continue statin
Anxiety
-Continue buspirone, Lexapro
Chronic back pain
-Continue tramadol
Obesity secondary to excess calories
Left hip pain with chronic ambulatory dysfunction
Chronic constipation
-Hold bowel regimen
History of left retroperitoneal bleeding hemorrhagic shock
Spinal stenosis/chronic back pain/spinal stimulator
-Continue Tylenol, gabapentin
Full code
DVT prophylaxis�Eliquis
Dispo- DC home with HC soon
Time spent coordinating care, review of plan of care with resident, personally reviewed records in EMR, med rec, consults, notes, labs, radiology, d/w nursing � 55 mins
Original Note:
Today's Communication/Plan
-
Advance diet, monitor bowel movements
Assessment / Plan
Assessment / Plan
Impression:
Plan:
# Acute gastroenteritis
-Patient was n.p.o. overnight, transition to diabetic diet today at lunch
-Stool culture, C. difficile was negative for toxins but positive for C. difficile.
-Results mean patient does not have C. difficile infection
-Patient lives alone and will require support once discharged
-CM consult
# Acute kidney injury prerenal on CKD 3B
-Creatinine admission was 1.8 patient's baseline is 1.3
-Creatinine 1.6 today, improving
-Hold Lasix
-Hold valsartan
COPD
-Continue home meds
-Fluticasone/salmeterol 45 twice daily
Chronic anemia
-stable
-Hemoglobin was 11.5, 11 is patient's baseline
Paroxysmal atrial fibrillation
-[id number] score 5
-Continue Eliquis
Chronic HFpEF
-Cardiac BNP 300
-Third-degree heart block status post pacemaker
Essential hypertension
-Continue home meds
-Coreg 12.5 mg p.o. twice daily
-Hydralazine 50 mg p.o. 3 times daily
Hyponatremia
-138 resolved
Type 2 diabetes
-Patient restarted on home insulin regimen,
-Insulin glargine 15 units
-Sliding scale initiated
-Patient started on a diabetic diet
Hyperlipidemia
-Continue home meds
-Atorvastatin 10 mg p.o.
Anxiety
-Continue home meds
-Buspirone 10 mg p.o. twice daily, Lexapro 20 mg p.o.
Chronic back pain
-Home meds are tramadol 50 mg p.o. twice daily
-Continue home meds
Obesity secondary to excess calories
-Affects all aspects of care
Spinal stenosis/chronic back pain
-Pt takes Tylenol 650mg PO q4H PRN, gabapentin 300mg p.o BID
-continue home meds
Full code
DVT prophylaxis�Eliquis
Clear liquids
Anticipated Discharge: 24 - 48 hours
Subjective/Interval History
-
Date of Service: April 10, 2024
Patient admitted for observation
Objective Data
-
Labs:
Laboratory Results
04/10/24
06:00
WBC Pending
Hgb Pending
Hct Pending
Plt Count Pending
Sodium Pending
Potassium Pending
Chloride Pending
Carbon Dioxide Pending
BUN Pending
Creatinine Pending
Glucose Pending
Calcium Pending
Total Bilirubin Pending
AST Pending
ALT Pending
Alkaline Phosphatase Pending
Vital Signs:
Vital Signs
Temp Pulse Resp BP Pulse Ox
98.5 F 65 14 128/69 92
04/10/24 07:40 04/10/24 08:33 04/10/24 07:40 04/10/24 08:33 04/10/24 07:40
I&O
04/09/24 04/10/24 04/11/24
06:59 06:59 06:59
Intake Total 120 / 120
Balance 120 / 120
Review of Systems
-
History Source: Patient
Constitutional: Reports Weight Loss, Chills and Weakness; Denies Fever or Night Sweats
Respiratory: Reports No Symptoms; Denies Trouble Breathing
Cardiac: Reports No Symptoms; Denies Chest Pain or Diaphoresis
Abdomen/GI: Reports Nausea and Diarrhea; Denies Abdominal Pain or Vomiting
Genitourinary: Reports No Symptoms
Neuro: Reports No Symptoms
Physical Exam
-
General: Well Developed, Well Nourished, No Apparent Distress and Morbidly Obese
Respiratory: Clear to Auscultation; Negative Wheezes
Cardiac: Regular Rhythm and S1/S2
GI: Soft, Nontender, Nondistended and Normal Bowel Sounds
Skin: Rash (Bilateral rash on lower extremity, patient says chronic)
Neuro: Awake, Alert, Oriented and AO x 3
Psych: Calm
Data Reviewed
-
Diagnostic Radiology: Image personally visualized and interpreted, Report Reviewed by me and Discussed with Physician
Labs: Labs Reviewed by me and Discussed with Physician
[2024-04-10 11:40] LABS: Glucose - Point of Care 166 mg/dl (70-99)
[2024-04-10] MEDS: NOVOLOG FLEXPEN-LOW RESISTANCE 1 UNITS SC ×2 (12:30→17:33)
--- NOTE | 2024-04-10 14:06 | CM ---
Initial assessment completed with patient who lives alone in a 2nd floor apartment in elevator building with no steps to enter. HEAD [employer] GEOGRAPHY patient used a RW and has a W/CH. He requires assistance with chores and cooking. His sister provides services for
errands, chores and she prepares his meals. Patient has no in-home services other than his sister. Patient does not drive or work. No history of Psychiatric hospitalizations. He was recently in [facility]. Pharmacy is [facility] in
[place] and PCP is Dr. Alexander Mar in [place]. Will await PT recommendations for discharge Plan of Care.
[2024-04-10 14:33] LABS: % Basophils 0.9 % (0-2); % Eosinophils 1.6 % (0-6); % Immature Granulocytes 0.3 % (0-0.5); % Lymphocytes 33.2 % (20.5-51.1); % Monocytes 6.2 % (1.7-9.3); % Neutrophils 57.8 % (42.2-75.2); Absolute Basophils 0.1 10^3/uL (0-0.2); Absolute Eosinophils 0.1 10^3/uL (0-0.7); Absolute Lymphocytes 2.3 10^3/uL (1.2-3.4); Absolute Monocytes 0.4 10^3/uL (0.1-0.6); Hematocrit 30.6 % (39.0-52.0); Hemoglobin 10.4 g/dL (13.0-18.0); Mean Corpuscular Volume 91.1 fL (80.0-94.0); Nucleated Red Blood Cells % 0 % (-); Platelet Count 156 10^3/uL (130-400); Red Blood Cell Count 3.36 10^6/uL (4.70-6.10); Red Cell Dist. Width 14.8 % (11.5-14.5); White Blood Cell Count 6.9 10^3/uL (4.8-10.8)
[2024-04-10 14:45] LABS: ALT (SGPT) 14 U/L (0-50); AST (SGOT) 19 U/L (17-59); Albumin 3.4 g/dl (3.5-5.0); Alkaline Phosphatase 64 U/L (38-126); Blood Urea Nitrogen 27 mg/dl (9-20); Calcium 8.6 mg/dl (8.4-10.2); Carbon Dioxide 25 mmol/L (22-30); Chloride 105 mmol/L (98-107); Estimated Creatinine Clearance 50 ml/min; Glucose 205 mg/dl (70-99); Potassium 3.4 mmol/L (3.5-5.1); Sodium 138 mmol/L (135-145); Total Bilirubin 1.1 mg/dl (0.2-1.3); eGFR 44.65
[2024-04-10 15:40] VITALS: BP 105/54
[2024-04-10] MEDS: APRESOLINE PO ×2 (16:38→21:49)
[2024-04-10 16:46] LABS: Glucose - Point of Care 160 mg/dl (70-99)
[2024-04-10 21:03] LABS: Glucose - Point of Care 138 mg/dl (70-99)
[2024-04-10] MEDS: NEURONTIN 300 MG PO (21:46)
[2024-04-10] MEDS: ULTRAM 50 MG PO (21:46)
[2024-04-10] MEDS: LIPITOR 10 MG PO (22:01)
[2024-04-10] MEDS: LANTUS 0.15 UNITS SC (22:01)
[2024-04-10 23:00] VITALS: BP 130/56
[2024-04-10 23:20] VITALS: PULSE 2; PULSE 90
[2024-04-11 05:21] VITALS: PULSE 2; PULSE 91
[2024-04-11 06:00] VITALS: BMI 35.9
[2024-04-11 07:30] VITALS: BP 141/57
[2024-04-11] MEDS: ADVAIR HFA 45/21 MCG INHALER 2 PUFF INH ×2 (07:30→20:13)
[2024-04-11 08:02] LABS: Glucose - Point of Care 127 mg/dl (70-99)
[2024-04-11] MEDS: NOVOLOG FLEXPEN-LOW RESISTANCE SC ×2 (08:18→16:24)
[2024-04-11] MEDS: APRESOLINE 50 MG PO ×3 (08:19→21:52)
[2024-04-11] MEDS: PROTONIX 40 MG PO (08:20)
[2024-04-11] MEDS: NEURONTIN 300 MG PO ×2 (08:20→21:35)
[2024-04-11] MEDS: LEXAPRO 20 MG PO (08:21)
[2024-04-11] MEDS: COREG 12.5 MG PO ×2 (08:21→21:52)
[2024-04-11] MEDS: BUSPAR 10 MG PO ×2 (08:21→21:36)
[2024-04-11] MEDS: ULTRAM 50 MG PO ×2 (08:21→21:35)
[2024-04-11] MEDS: ELIQUIS 5 MG PO ×2 (08:21→21:36)
[2024-04-11] MEDS: REFRESH EYE DROPS (PF) 1 DROPS BOTH EYES (09:58)
--- NOTE | 2024-04-11 10:11 | W.PN.HOSP.TC ---
Addendum entered and electronically signed by Kemar Veras MD 04/12/24 00:05:
Attending Addendum-
I saw and evaluated the patient. I reviewed the resident�s note and agree with findings and plan as documented in the resident�s note. Sub: complains of pain in chronic back pain. Still with nonbloody diarrhea but improved. only 2 episodes, denies
abd pain N/V. 'I wanna stay till Friday. my legs are so swollen' Full 12 point ROS reviewed and negative except as documented Exam: Vitals reviewed in chart GEN-NAD heart RRR lungs clear abd soft LE b/l +1 edema
Plan:
# Acute gastroenteritis
- advance diet
- resolving
- Stool culture, C. difficile toxin neg ag pos (carrier)
- DC IV fluids
# Acute kidney injury on CKD 3a
- resolved
- baseline @ 1.3
- IV fluids
- restart Lasix
- restart valsartan
# Hypokalemia-
- resolved
- repeat BMP in am
# COPD
-Continue inhalers
# Obstructive sleep apnea
- cpap q hs
# Chronic anemia
-Hemoglobin stable
# Paroxysmal atrial fibrillation
-Continue Eliquis
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
# Chronic HFpEF
- Cardiac BNP 300
- Not in AE
- restart lasix
- repeat BMP daily
# Pulmonary hypertension
# Essential hypertension
-Continue Coreg
-Continue hydralazine
# Hyponatremia
- resolved
# Type 2 diabetes
-advance diet
-restarted Lantus
-cont Insulin sliding scale
Hyperlipidemia
-Continue statin
Anxiety
-Continue buspirone, Lexapro
Chronic back pain
-Continue tramadol
Obesity secondary to excess calories
Left hip pain with chronic ambulatory dysfunction
Chronic constipation
-Hold bowel regimen
History of left retroperitoneal bleeding hemorrhagic shock
Spinal stenosis/chronic back pain/spinal stimulator
-Continue Tylenol, gabapentin
Full code
DVT prophylaxis�Eliquis
Dispo- DC home with HC/VN in am d/w CM
Time spent coordinating care, review of plan of care with resident, personally reviewed records in EMR, med rec, consults, notes, labs, radiology, d/w nursing � 52 mins
Original Note:
Today's Communication/Plan
-
Continue to observation
Assessment / Plan
Assessment / Plan
Impression: 73-year-old man who presented with episode of acute gastroenteritis, as well as volume depletion secondary to diarrhea
Plan:
# Acute gastroenteritis
-Patient was n.p.o. first night, transition to diabetic diet. Patient tolerating diet well with no nausea or vomiting
-Stool culture, C. difficile was negative for toxins but positive for C. difficile.
-Results mean patient does not have C. difficile infection
-Patient lives alone and will require support once discharged
-CM consult
# Acute kidney injury, prerenal on CKD 3B
-Creatinine admission was 1.8 patient's baseline is 1.3
-Creatinine 1.6 today, improving
-Restart p.o. Lasix 40 mg p.o. once daily
-Hold valsartan
#Hypokalemia
-Replete
-Trend BMPs in a.m.
COPD
-Continue home meds
-Fluticasone/salmeterol 45 twice daily
Chronic anemia
-stable
-Hemoglobin was 10.4, 11 is patient's baseline
Paroxysmal atrial fibrillation
-[id number] score 5
-Continue Eliquis
Chronic HFpEF
-Cardiac BNP 300
-Third-degree heart block status post pacemaker
-Restart home p.o. Lasix
Essential hypertension
-Continue home meds
-Coreg 12.5 mg p.o. twice daily
-Hydralazine 50 mg p.o. 3 times daily
Hyponatremia
-138 resolved
Type 2 diabetes
-Patient restarted on home insulin regimen,
-Insulin glargine 15 units
-Sliding scale initiated
-Patient started on a diabetic diet
Hyperlipidemia
-Continue home meds
-Atorvastatin 10 mg p.o.
Anxiety
-Continue home meds
-Buspirone 10 mg p.o. twice daily, Lexapro 20 mg p.o.
Chronic back pain
-Home meds are tramadol 50 mg p.o. twice daily
-Continue home meds
Obesity secondary to excess calories
-Affects all aspects of care
Spinal stenosis/chronic back pain
-Pt takes Tylenol 650mg PO q4H PRN, gabapentin 300mg p.o BID
-continue home meds
Full code
DVT prophylaxis�Eliquis
Clear liquids
Anticipated Discharge: 24 - 48 hours
Subjective/Interval History
-
Date of Service: April 11, 2024
Patient tolerating diet well, no episodes of diarrhea this morning
Objective Data
-
Labs:
Laboratory Results
04/10/24 04/11/24
13:52 06:00
WBC 6.9 Pending
Hgb 10.4 L Pending
Hct 30.6 L Pending
Plt Count 156 D Pending
Sodium Pending
Potassium Pending
Chloride Pending
Carbon Dioxide Pending
BUN Pending
Creatinine Pending
Glucose Pending
Calcium Pending
Total Bilirubin Pending
AST Pending
ALT Pending
Alkaline Phosphatase Pending
Vital Signs:
Vital Signs
Temp Pulse Resp BP Pulse Ox
99.4 F 70 16 141/57 95
04/11/24 07:30 04/11/24 08:21 04/11/24 07:34 04/11/24 08:21 04/11/24 07:34
I&O
04/10/24 04/11/24 04/12/24
06:59 06:59 06:59
Intake Total 120 / 120 1080 / 1080
Balance 120 / 120 1080 / 1080
Review of Systems
-
History Source: Patient
Constitutional: Reports No Symptoms
Respiratory: Reports Trouble Breathing; Denies Cough
Cardiac: Reports No Symptoms
Abdomen/GI: Reports Abdominal Pain
Musculoskeletal: Reports Other (Patient reports back and neck pain, chronic)
Skin: Reports Rash
Neuro: Reports No Symptoms
Physical Exam
-
General: No Apparent Distress, Comfortable, Conversant and Morbidly Obese
Respiratory: Clear to Auscultation; Negative Wheezes
Cardiac: Regular Rhythm and S1/S2
GI: Soft, Nondistended, Normal Bowel Sounds and Tender
Skin: Warm, Dry and Rash
Neuro: Awake, Alert, Oriented and AO x 3
Psych: Calm and Intact Judgement/Insight
Data Reviewed
-
Diagnostic Radiology: Report Reviewed by me and Discussed with Physician
Labs: Labs Reviewed by me and Discussed with Physician
[2024-04-11 10:59] LABS: % Basophils 0.8 % (0-2); % Eosinophils 2.2 % (0-6); % Immature Granulocytes 0.3 % (0-0.5); % Lymphocytes 30.4 % (20.5-51.1); % Monocytes 7.3 % (1.7-9.3); Absolute Basophils 0.1 10^3/uL (0-0.2); Absolute Eosinophils 0.1 10^3/uL (0-0.7); Absolute Monocytes 0.5 10^3/uL (0.1-0.6); Absolute Neutrophils 3.8 10^3/uL (1.4-6.5); Hematocrit 28.7 % (39.0-52.0); Hemoglobin 10.1 g/dL (13.0-18.0); Mean Corp Hgb Conc. 35.2 g/dL (33.0-37.0); Mean Corpuscular Hgb 31.5 pg (27.0-31.0); Mean Corpuscular Volume 89.4 fL (80.0-94.0); Mean Platelet Volume 12.6 fL (7.4-10.4); Nucleated Red Blood Cells % 0 % (-); Platelet Count 140 10^3/uL (130-400); Red Blood Cell Count 3.21 10^6/uL (4.70-6.10); Red Cell Dist. Width 14.7 % (11.5-14.5); White Blood Cell Count 6.4 10^3/uL (4.8-10.8)
[2024-04-11 11:25] LABS: ALT (SGPT) 13 U/L (0-50); AST (SGOT) 17 U/L (17-59); Albumin 3.4 g/dl (3.5-5.0); Alkaline Phosphatase 60 U/L (38-126); Blood Urea Nitrogen 24 mg/dl (9-20); Calcium 8.5 mg/dl (8.4-10.2); Carbon Dioxide 26 mmol/L (22-30); Chloride 106 mmol/L (98-107); Estimated Creatinine Clearance 57 ml/min; Glucose 198 mg/dl (70-99); Potassium 4.4 mmol/L (3.5-5.1); Sodium 137 mmol/L (135-145); Total Bilirubin 0.7 mg/dl (0.2-1.3); Total Protein 5.8 g/dl (6.3-8.2); eGFR 52.41
[2024-04-11 12:00] LABS: Glucose - Point of Care 191 mg/dl (70-99)
[2024-04-11] MEDS: NOVOLOG FLEXPEN-LOW RESISTANCE 1 UNITS SC (12:35)
--- NOTE | 2024-04-11 14:57 | CM ---
Addendum entered by Genny Parker RN 04/11/24 16:10:
IMM signed and placed on chart. CM left voice message for the patient's sister with contact information for call back to main cm phone.
Original Note:
Reviewed the chart notes and spoke with the patient at the bedside. Patient would not work with PT today for an evaluation. The patient reports being current with VN. Referral sent to [facility] via [facility]. Patient provided with [facility]
transit brochure and application. Per patient, 'I don't need that. My sister arranges for transportation.' Brochure left at bedside. Per patient, his sister and her spouse assist the patient as needed. CM to reach out to patient's sister to
confirm discharge plan. CM continues to be available to patient/family and is monitoring medical plan for needs at discharge.
Plan: Discharge to home with VN services.
[2024-04-11 15:26] VITALS: BP 152/81
[2024-04-11] MEDS: LASIX 40 MG PO (15:27)
[2024-04-11 16:19] LABS: Glucose - Point of Care 118 mg/dl (70-99)
--- NOTE | 2024-04-11 17:23 | W.DCSUMMARY ---
Addendum entered and electronically signed by Mak De Jesus MD 04/17/24 07:53:
Read, reviewed, and agree. See same day progress note for additional details. Time spent coordinating care, DC planning, review of DC plan of care with resident, transition of care, review of records in EMR, med rec, consults, notes, d/w
consultants, nursing, family, and CM 40 mins
Original Note:
Documented by User: Rosalio Escobedo MD, Resident 04/15/24 16:13
Discharge Summary
Discharge Data
Date of Admission: 04/09/24
Date of Discharge: 04/15/24
-
Pending Results: No
Hospital Course
Discharging Physician :
Disposition :
Primary care physician :
Principal Discharge diagnosis :
Chronic Discharge diagnosis :
Hospital Course : 73-year-old male presented to the ED complaining of multiple episodes of watery diarrhea. His past medical history includes CHF atrial fibrillation with pacemaker COPD hypertension pulmonary hypertension diabetes sleep apnea
anxiety chronic back pain obesity hyperlipidemia and sciatica. Patient was kept n.p.o. his first night, and was transition to a diabetic diet the first day of his stay. Stool culture was positive for C. difficile but negative for C. difficile
toxin indicating that the patient is a carrier and not actively infected. Labs on admission also demonstrated a acute kidney injury, prerenal. Creatinine on admission was 1.8 patient's baseline is 1.3 nephrotoxic agents were held. Creatinine
improved to 1.4 on discharge. Patient also had hyponatremia on admission it has resolved at 138 on discharge. Patient was kept on home medications for COPD, atrial fibrillation, hypertension, type 2 diabetes, chronic back pain and neck pain,
hyperlipidemia, anxiety. Patient spoke to case management regarding setting up a home nurse for him. As well as setting up transport. Case management has finalized these plans and has given the patient all the relevant information he requires.
Patient will be discharged home.
Important imaging findings :
Procedure findings :
Discharge Plan
-
Patient Disposition: Home (Routine Discharge)
Discharge Diagnosis/Procedures: Acute gastroenteritis, acute kidney injury on CKD 3B, hypokalemia, COPD, obstructive sleep apnea, chronic anemia, paroxysmal atrial fibrillation, third-degree heart block SP pacemaker, chronic heart failure preserved
ejection fraction, pulmonary hypertension, essential hypertension, hyponatremia, type 2 diabetes, hyperlipidemia, anxiety, chronic back and neck pain, obesity
Condition: Good
Diet: No restrictions
Activity: No restrictions
Driving Restrictions: As prior to admission
Bathing Restrictions: None
Other Services: VN
Referrals:
Fadi Ha MD, Resident [Family Practice Resident Year2] - in less than 1 week
UNKNOWN - PT DOES,NOT KNOW [Family Provider] -
Prescriptions:
Continued
atorvastatin [Lipitor] 10 mg Tablet
10 mg PO HS
escitalopram oxalate [Lexapro] 20 mg Tablet
20 mg PO DAILY
fluticasone propion-salmeterol [Wixela Inhub] 100-50 mcg/dose Blister With Device
1 inh INHALATION R BID
Eliquis 5 mg tablet
5 mg PO BID Qty: 30 0RF
gabapentin 300 mg capsule
300 mg PO BID
pantoprazole [Protonix] 40 mg Tablet,Delayed Release (Dr/Ec)
40 mg PO DAILY
buspirone 10 mg Tablet
10 mg PO BID
carvedilol 12.5 mg Tablet
12.5 mg PO BID Qty: 10 0RF
furosemide 40 mg Tablet
40 mg PO DAILY Qty: 0 0RF
hydralazine 50 mg Tablet
50 mg PO TID
insulin lispro 100 unit/mL solution
0 sliding scale dose SC AC
Patient Comments:
04/09/24:141-180=4u,181-220=6u,221-260=8u,261-300=10u,301-350=12u,351-400=14u,401-500=16u
losartan 100 mg Tablet
100 mg PO DAILY
insulin glargine [Lantus Solostar U-100 Insulin] 100 unit/mL (3 mL) Insulin Pen
15 unit SC HS
Refresh Classic (PF) 1.4-0.6 % dropperette
1 drops BOTH EYES QIDPRN PRN (Reason: dry eyes)
Discharge Orders:
Discharge Patient (As Directed); Ordered 04/11/24
Ordered By: Rosalio Escobedo
Discharge Date and Time
Discharge Date/Time: 04/15/24 19:43
Print Language: INDONESIAN

Documented by User: Geovanny Hopson DO, Resident 04/14/24 07:18
Discharge Summary
Discharge Data
Date of Admission: 04/09/24
Date of Discharge: 04/14/24
-
Pending Results: No
Hospital Course
Discharging Physician : Rito Hopson
Disposition : rehab
Primary care physician : Dr Ha
Principal Discharge diagnosis : Acute gastroenteritis
Chronic Discharge diagnosis : Acute gastroenteritis, acute kidney injury on CKD 3B, hypokalemia, COPD, obstructive sleep apnea, chronic anemia, paroxysmal atrial fibrillation, third-degree heart block SP pacemaker, chronic heart failure preserved
ejection fraction, pulmonary hypertension, essential hypertension, hyponatremia, type 2 diabetes, hyperlipidemia, anxiety, chronic back and neck pain, obesity
Hospital Course : 73-year-old male presented to the ED complaining of multiple episodes of watery diarrhea. His past medical history includes CHF atrial fibrillation with pacemaker COPD hypertension pulmonary hypertension diabetes sleep apnea
anxiety chronic back pain obesity hyperlipidemia and sciatica. Patient was kept n.p.o. his first night, and was transition to a diabetic diet the first day of his stay. Stool culture was positive for C. difficile but negative for C. difficile
toxin indicating that the patient is a carrier and not actively infected. Labs on admission also demonstrated a acute kidney injury, prerenal. Creatinine on admission was 1.8 patient's baseline is 1.3 nephrotoxic agents were held. Creatinine
improved to 1.4 on discharge. Patient also had hyponatremia on admission it has resolved at 138 on discharge. Patient was kept on home medications for COPD, atrial fibrillation, hypertension, type 2 diabetes, chronic back pain and neck pain,
hyperlipidemia, anxiety. Patient spoke to case management regarding setting up a home nurse for him. As well as setting up transport. However it was decided he would be discharged to a rehab facility. Case management has finalized these plans and
has given the patient all the relevant information he requires. Patient will be discharged to a rehab facility.
Important imaging findings : 04/09/2024 chest x-ray findings are as follows:
Stable moderate elevation of the right hemidiaphragm. No focal consolidation, pleural effusion, or pneumothorax. Left cardiac conduction device. Stable enlargement of the cardiac silhouette. Chronic degenerative changes of the spine.
04/10/2024 abdominal x-ray findings are as follows:
Nonobstructive bowel gas pattern. No disproportionally dilated loops of small bowel or air-fluid levels. No significant colonic stool burden. No appreciable intraperitoneal free air.
A sacral stimulator device is in place. Moderate lumbar dextroscoliosis. Posterior lumbar laminectomy defects.
Procedure findings : Not applicable
Discharge Plan
-
Patient Disposition: Home (Routine Discharge)
Discharge Diagnosis/Procedures: Acute gastroenteritis, acute kidney injury on CKD 3B, hypokalemia, COPD, obstructive sleep apnea, chronic anemia, paroxysmal atrial fibrillation, third-degree heart block SP pacemaker, chronic heart failure preserved
ejection fraction, pulmonary hypertension, essential hypertension, hyponatremia, type 2 diabetes, hyperlipidemia, anxiety, chronic back and neck pain, obesity
Condition: Good
Diet: No restrictions
Activity: No restrictions
Driving Restrictions: As prior to admission
Bathing Restrictions: None
Other Services: VN
Referrals:
Fadi Ha MD, Resident [Family Practice Resident Year2] - in less than 1 week
UNKNOWN - PT DOES,NOT KNOW [Family Provider] -
Prescriptions:
Continued
atorvastatin [Lipitor] 10 mg Tablet
10 mg PO HS
escitalopram oxalate [Lexapro] 20 mg Tablet
20 mg PO DAILY
fluticasone propion-salmeterol [Wixela Inhub] 100-50 mcg/dose Blister With Device
1 inh INHALATION R BID
Eliquis 5 mg tablet
5 mg PO BID Qty: 30 0RF
gabapentin 300 mg capsule
300 mg PO BID
pantoprazole [Protonix] 40 mg Tablet,Delayed Release (Dr/Ec)
40 mg PO DAILY
buspirone 10 mg Tablet
10 mg PO BID
carvedilol 12.5 mg Tablet
12.5 mg PO BID Qty: 10 0RF
furosemide 40 mg Tablet
40 mg PO DAILY Qty: 0 0RF
hydralazine 50 mg Tablet
50 mg PO TID
insulin lispro 100 unit/mL solution
0 sliding scale dose SC AC
Patient Comments:
04/09/24:141-180=4u,181-220=6u,221-260=8u,261-300=10u,301-350=12u,351-400=14u,401-500=16u
losartan 100 mg Tablet
100 mg PO DAILY
insulin glargine [Lantus Solostar U-100 Insulin] 100 unit/mL (3 mL) Insulin Pen
15 unit SC HS
Refresh Classic (PF) 1.4-0.6 % dropperette
1 drops BOTH EYES QIDPRN PRN (Reason: dry eyes)
Discharge Orders:
Discharge Patient (As Directed); Ordered 04/11/24
Ordered By: Rosalio Escobedo
Discharge Date and Time
Discharge Date/Time: 04/15/24 19:43
Print Language: INDONESIAN

Documented by User: Mak De Jesus MD 04/17/24 07:52
Discharge Summary
Discharge Data
Date of Admission: 04/09/24
Date of Discharge: 04/15/24
Discharge Plan
-
Patient Disposition: Home (Routine Discharge)
Discharge Diagnosis/Procedures: Acute gastroenteritis, acute kidney injury on CKD 3B, hypokalemia, COPD, obstructive sleep apnea, chronic anemia, paroxysmal atrial fibrillation, third-degree heart block SP pacemaker, chronic heart failure preserved
ejection fraction, pulmonary hypertension, essential hypertension, hyponatremia, type 2 diabetes, hyperlipidemia, anxiety, chronic back and neck pain, obesity
Condition: Good
Diet: No restrictions
Activity: No restrictions
Driving Restrictions: As prior to admission
Bathing Restrictions: None
Other Services: VN
Referrals:
Fadi Ha MD, Resident [Family Practice Resident Year2] - in less than 1 week
UNKNOWN - PT DOES,NOT KNOW [Family Provider] -
Prescriptions:
Continued
atorvastatin [Lipitor] 10 mg Tablet
10 mg PO HS
escitalopram oxalate [Lexapro] 20 mg Tablet
20 mg PO DAILY
fluticasone propion-salmeterol [Wixela Inhub] 100-50 mcg/dose Blister With Device
1 inh INHALATION R BID
Eliquis 5 mg tablet
5 mg PO BID Qty: 30 0RF
gabapentin 300 mg capsule
300 mg PO BID
pantoprazole [Protonix] 40 mg Tablet,Delayed Release (Dr/Ec)
40 mg PO DAILY
buspirone 10 mg Tablet
10 mg PO BID
carvedilol 12.5 mg Tablet
12.5 mg PO BID Qty: 10 0RF
furosemide 40 mg Tablet
40 mg PO DAILY Qty: 0 0RF
hydralazine 50 mg Tablet
50 mg PO TID
insulin lispro 100 unit/mL solution
0 sliding scale dose SC AC
Patient Comments:
04/09/24:141-180=4u,181-220=6u,221-260=8u,261-300=10u,301-350=12u,351-400=14u,401-500=16u
losartan 100 mg Tablet
100 mg PO DAILY
insulin glargine [Lantus Solostar U-100 Insulin] 100 unit/mL (3 mL) Insulin Pen
15 unit SC HS
Refresh Classic (PF) 1.4-0.6 % dropperette
1 drops BOTH EYES QIDPRN PRN (Reason: dry eyes)
Discharge Orders:
Discharge Patient (As Directed); Ordered 04/11/24
Ordered By: Rosalio Escobedo
Discharge Date and Time
Discharge Date/Time: 04/15/24 19:43
Print Language: INDONESIAN
[2024-04-11] MEDS: LIPITOR 10 MG PO (21:35)
[2024-04-11 21:36] LABS: Glucose - Point of Care 150 mg/dl (70-99)
[2024-04-11] MEDS: LANTUS 0.15 UNITS SC (21:44)
[2024-04-11 22:35] VITALS: PULSE 2; PULSE 88
[2024-04-11 23:02] VITALS: BP 144/67
[2024-04-12 03:46] VITALS: PULSE 2; PULSE 86
[2024-04-12 06:00] VITALS: BMI 36.1
[2024-04-12 07:14] LABS: Glucose - Point of Care 118 mg/dl (70-99)
[2024-04-12] MEDS: NOVOLOG FLEXPEN-LOW RESISTANCE SC ×2 (07:49→16:59)
[2024-04-12] MEDS: ADVAIR HFA 45/21 MCG INHALER 2 PUFF INH ×2 (07:50→18:31)
[2024-04-12 07:55] VITALS: BP 143/58
[2024-04-12] MEDS: ZOFRAN 4 MG IV (08:27)
[2024-04-12] MEDS: NEURONTIN 300 MG PO ×2 (08:27→20:14)
[2024-04-12] MEDS: ULTRAM 50 MG PO ×2 (08:28→20:14)
[2024-04-12] MEDS: PROTONIX 40 MG PO (08:28)
[2024-04-12] MEDS: LASIX 40 MG PO (08:28)
[2024-04-12] MEDS: BUSPAR 10 MG PO ×2 (08:28→20:14)
[2024-04-12] MEDS: ELIQUIS 5 MG PO ×2 (08:28→20:13)
[2024-04-12] MEDS: LEXAPRO 20 MG PO (08:28)
[2024-04-12] MEDS: APRESOLINE 50 MG PO ×3 (08:29→22:06)
[2024-04-12] MEDS: COREG 12.5 MG PO ×2 (08:29→20:14)
[2024-04-12 08:30] LABS: % Basophils 1.1 % (0-2); % Eosinophils 2.4 % (0-6); % Immature Granulocytes 0.7 % (0-0.5); % Lymphocytes 24.6 % (20.5-51.1); % Monocytes 7.2 % (1.7-9.3); Absolute Basophils 0.1 10^3/uL (0-0.2); Absolute Eosinophils 0.2 10^3/uL (0-0.7); Absolute Immature Granulocytes 0.1 10^3/uL (0-0.05); Absolute Lymphocytes 1.8 10^3/uL (1.2-3.4); Absolute Monocytes 0.5 10^3/uL (0.1-0.6); Absolute Neutrophils 4.6 10^3/uL (1.4-6.5); Hematocrit 31.6 % (39.0-52.0); Hemoglobin 11.1 g/dL (13.0-18.0); Mean Corp Hgb Conc. 35.1 g/dL (33.0-37.0); Mean Corpuscular Hgb 31.4 pg (27.0-31.0); Mean Corpuscular Volume 89.5 fL (80.0-94.0); Mean Platelet Volume 12.8 fL (7.4-10.4); Nucleated Red Blood Cells % 0 % (-); Platelet Count 137 10^3/uL (130-400); Red Blood Cell Count 3.53 10^6/uL (4.70-6.10); Red Cell Dist. Width 14.6 % (11.5-14.5); White Blood Cell Count 7.2 10^3/uL (4.8-10.8)
--- NOTE | 2024-04-12 08:46 | PTCARENOTE ---
pt complaining of nausea this am . prn dose of zofran given and breakfast ordered. He was complaining of shortness of breath however his lungs are fairly clear with the exception of a little coarsness in the right base . made aware
[2024-04-12 08:56] LABS: ALT (SGPT) 12 U/L (0-50); AST (SGOT) 19 U/L (17-59); Albumin 3.5 g/dl (3.5-5.0); Alkaline Phosphatase 58 U/L (38-126); Blood Urea Nitrogen 26 mg/dl (9-20); Carbon Dioxide 26 mmol/L (22-30); Chloride 104 mmol/L (98-107); Estimated Creatinine Clearance 67 ml/min; Glucose 122 mg/dl (70-99); Potassium 4.2 mmol/L (3.5-5.1); Sodium 137 mmol/L (135-145); Total Bilirubin 0.7 mg/dl (0.2-1.3); Total Protein 6.2 g/dl (6.3-8.2); eGFR > 60.00
--- NOTE | 2024-04-12 09:36 | W.PN.HOSP.TC ---
Addendum entered and electronically signed by Mak De Jesus MD 04/12/24 17:05:
I saw and evaluated the patient. I reviewed the resident�s note and agree with findings and plan as documented in the resident�s note.
1. Acute gastroenteritis
C. difficile antigen positive
-Stool studies have been negative for any bladder pathology.
-Patient received antigen positive, toxin negative
-Diarrhea is improved no concern of active C. difficile infection. Continue monitoring
-Probiotic/Visbiome daily ordered
2. NAOMI
-cr of 1.8 at admission, down to 1.2 today, GFR of > 60
-presumed pre-renal in nature.
3. Hypokalemia
- Gi loss related
- replace as needed
4. Dyspnea
- patient not hypoxic. Lung exam is clear.
- CXR did not show any acute abnormalities
- possibly related to chronic debility/HF related
5. Chronic diastolic HF
- no signs of exacerbation
- maintain on oral lasix 40mg/d
- follow weight/cr
Awaiting discharge at this point. Discussed with shelter case manager sister who is a caregiver unable to come pick up man patient until tomorrow.
Patient would benefit with SNF/rehab but have declined
Original Note:
Today's Communication/Plan
-
Patient cleared from medical standpoint, patient refusing to leave as he wants to speak with case management. Will arrange
Assessment / Plan
Assessment / Plan
Impression: 73-year-old man who presented with episode of acute gastroenteritis, as well as volume depletion secondary to diarrhea
Plan:
# Viral acute gastroenteritis
-Resolved, no episodes of diarrhea reported
-Patient was n.p.o. first night, transition to diabetic diet. Patient tolerating diet well with no nausea or vomiting
-Stool culture, C. difficile was negative for toxins but positive for C. difficile.
-Results mean patient does not have C. difficile infection
-Patient lives alone and will require support once discharged
-CM consult, regarding transport. However patient states that his insurance will cover transport will ask case management to see patient today as this is the only issue keeping him in the hospital under observation
-Patient states multiple times he does not want to go home as he does not feel he can, all issues have resolved, medically he is cleared to be discharged
-Patient will be discharged tomorrow. His sister is unable to pick him up and care for him until Friday
-hardware engineering manager is working with patient to give him all the resources needed for outpatient follow up and transportation
# Acute kidney injury, prerenal on CKD 3B
-Creatinine admission was 1.8 patient's baseline is 1.3
-Creatinine 1.2 today, resolved
-Restarted p.o. Lasix 40 mg p.o. once daily, edema improving
-Restart valsartan
#Hypokalemia
-Resolved, 4.2 this a.m.
-Trend BMPs .
COPD
-Continue home meds
-Fluticasone/salmeterol 45 twice daily
Chronic anemia
-stable
-Hemoglobin was 10.4, 11 is patient's baseline
Paroxysmal atrial fibrillation
-[id number] score 5
-Continue Eliquis
Chronic HFpEF
-Cardiac BNP 300
-Third-degree heart block status post pacemaker
-Restart home p.o. Lasix
Essential hypertension
-Continue home meds
-Coreg 12.5 mg p.o. twice daily
-Hydralazine 50 mg p.o. 3 times daily
Hyponatremia
-137 resolved
Type 2 diabetes
-Patient restarted on home insulin regimen,
-Insulin glargine 15 units
-Sliding scale initiated
-Patient started on a diabetic diet
Hyperlipidemia
-Continue home meds
-Atorvastatin 10 mg p.o.
Anxiety
-Continue home meds
-Buspirone 10 mg p.o. twice daily, Lexapro 20 mg p.o.
Chronic back pain
-Home meds are tramadol 50 mg p.o. twice daily
-Continue home meds
Obesity secondary to excess calories
-Affects all aspects of care
Spinal stenosis/chronic back pain
-Pt takes Tylenol 650mg PO q4H PRN, gabapentin 300mg p.o BID
-continue home meds
Full code
DVT prophylaxis�Eliquis
Diabetic diet
Anticipated Discharge: Within 24 hours
Subjective/Interval History
-
Date of Service: April 12, 2024
No acute events overnight patient still reports short of breath and nausea, unchanged
Objective Data
-
Labs:
Laboratory Results
04/12/24
08:07
WBC 7.2
Hgb 11.1 L
Hct 31.6 L
Plt Count 137
Sodium 137
Potassium 4.2
Chloride 104
Carbon Dioxide 26
BUN 26 H
Creatinine 1.2
Glucose 122 H
Calcium 9.0
Total Bilirubin 0.7
AST 19
ALT 12
Alkaline Phosphatase 58
Vital Signs:
Vital Signs
Temp Pulse Resp BP Pulse Ox
97.4 F 76 16 143/58 96
04/12/24 07:55 04/12/24 08:29 04/12/24 07:58 04/12/24 08:29 04/12/24 07:58
I&O
04/11/24 04/12/24 04/13/24
06:59 06:59 06:59
Intake Total 1080 / 1080 1380 / 1380
Balance 1080 / 1080 1380 / 1380
Review of Systems
-
History Source: Patient
Constitutional: Reports Fatigue and Weakness
Respiratory: Reports Other (Patient reports subjectively short of breath, sats normal, none oxygen)
Cardiac: Reports No Symptoms
Abdomen/GI: Reports Nausea; Denies Abdominal Pain, Vomiting, Diarrhea or Bloody Stools
Musculoskeletal: Reports Edema
Skin: Reports Rash
Physical Exam
-
General: Well Developed, Well Nourished, No Apparent Distress, Comfortable and Morbidly Obese
Respiratory: Clear to Auscultation
Cardiac: Regular Rhythm and S1/S2
GI: Soft, Nontender, Nondistended and Normal Bowel Sounds
Musculoskeletal: Edema, Right Lower Extrem (+1, improving) and Edema, Left Lower Extrem (+1, improving)
Skin: Warm, Dry and Rash (Chronic cellulitis)
Neuro: Awake, Alert, Oriented and AO x 3
Psych: Intact Judgement/Insight and Depressed
[2024-04-12 11:56] VITALS: BP 107/56; PULSE 62
[2024-04-12 12:03] LABS: Glucose - Point of Care 173 mg/dl (70-99)
[2024-04-12] MEDS: NOVOLOG FLEXPEN-LOW RESISTANCE 1 UNITS SC (12:55)
[2024-04-12] MEDS: REFRESH EYE DROPS (PF) 1 DROPS BOTH EYES (12:58)
[2024-04-12 15:08] VITALS: BP 111/54
--- NOTE | 2024-04-12 16:10 | CM ---
CM reviewed pt with Dr De Jesus- ready for dc
Bedside update to pt and PT facundo balbuena reviewed
Pt refusing SNF placement- [facility]
Multiple calls with sister/Kyra
She is not available to assist with pt at home until tomorrow evening
Pt would be unsafe at home alone today- Dr De Jesus in agreement with dc tomorrow
Transportation discussed with sister
She is requesting BLS arranged- pt does not medically qualify today, Elieser/transport confirms
Sister noting WC van benefit through [facility] and limited availability to pay for WC ride
She will further discuss with family regarding transport
Per Elieser WC van is $90 private pay
Will accept [facility] auth if auth covers full cost of ride- CM will need to obtain, transport will not
Will also be willing to have pt private pay for difference between auth and cost of ride
Pt accepted by [facility] for [facility]
Discharge Disposition- SNF refusal, [facility] TBD
--- NOTE | 2024-04-12 16:54 | PTCARENOTE ---
Pt requesting to speak with case management tomorrow about why SNF was mentioned and if it was his sister that mentioned him to go to a SNF. Informed pt that the plan is to be d/c tomorrow with [facility] services.
[2024-04-12 16:59] LABS: Glucose - Point of Care 110 mg/dl (70-99)
[2024-04-12] MEDS: VISBIOME 1 CAP PO (16:59)
[2024-04-12 22:03] LABS: Glucose - Point of Care 195 mg/dl (70-99)
[2024-04-12] MEDS: LANTUS 0.15 UNITS SC (22:04)
[2024-04-12] MEDS: LIPITOR 10 MG PO (22:04)
[2024-04-12 22:30] VITALS: PULSE 2; PULSE 67
[2024-04-12 23:53] VITALS: BP 118/57
[2024-04-13] MEDS: TYLENOL 650 MG PO (02:01)
[2024-04-13 04:30] VITALS: PULSE 2
[2024-04-13 06:00] VITALS: BMI 36.0
[2024-04-13 07:04] LABS: Glucose - Point of Care 123 mg/dl (70-99)
[2024-04-13 07:35] VITALS: BP 121/57
[2024-04-13] MEDS: ADVAIR HFA 45/21 MCG INHALER 2 PUFF INH ×2 (08:00→20:52)
[2024-04-13] MEDS: NOVOLOG FLEXPEN-LOW RESISTANCE SC ×2 (08:13→16:30)
--- NOTE | 2024-04-13 09:10 | W.PN.HOSP.TC ---
Addendum entered and electronically signed by Mak De Jesus MD 04/13/24 14:44:
I saw and evaluated the patient. I reviewed the resident�s note and agree with findings and plan as documented in the resident�s note.
1. Acute gastroenteritis - resolved
C. difficile antigen positive
-Stool studies have been negative for any pathologic organism
-Patient Cdiff antigen positive, toxin negative
-Diarrhea is improved no concern of active C. difficile infection. Continue monitoring
-Probiotic/Visbiome daily ordered
2. NAOMI
-cr of 1.8 at admission, down to 1.2 today, GFR of > 60
-presumed pre-renal in nature.
3. Hypokalemia
- Gi loss related
- replace as needed
4. Dyspnea
- patient not hypoxic. Lung exam is clear.
- CXR did not show any acute abnormalities
- possibly related to chronic debility/HF related
5. Chronic diastolic HF
- no signs of exacerbation
- maintain on oral lasix 40mg/d
- follow weight/cr
Patient agreed to go SNF rehab before discharged home. Case management working on placement.
Original Note:
Today's Communication/Plan
-
Patient is medically cleared since Friday to leave, has been staying due to social issues. Plan to discharge to rehab facility
Assessment / Plan
Assessment / Plan
Impression: 73-year-old man who presented with episode of acute gastroenteritis, as well as volume depletion secondary to diarrhea
Plan:
# Viral acute gastroenteritis
-Resolved, no episodes of diarrhea reported
-Patient was n.p.o. first night, transition to diabetic diet. Patient tolerating diet well with no nausea or vomiting
-Stool culture, C. difficile was negative for toxins but positive for C. difficile.
-Results mean patient does not have C. difficile infection
-Patient lives alone and will require support once discharged
-CM consult, regarding transport. However patient states that his insurance will cover transport will ask case management to see patient today as this is the only issue keeping him in the hospital under observation
-Patient states multiple times he does not want to go home as he does not feel he can, all issues have resolved, medically he is cleared to be discharged
-Patient decided he would like to be transferred to a rehab facility instead of going
-Case management is working on finding him placement and to give him all the resources needed for outpatient follow up and transportation
# Acute kidney injury, prerenal on CKD 3B
-Creatinine admission was 1.8 patient's baseline is 1.3
-Creatinine 1.2 today, resolved
-Restarted p.o. Lasix 40 mg p.o. once daily, edema improved
-Home valsartan
#Hypokalemia
-Resolved.
COPD
-Continue home meds
-Fluticasone/salmeterol 45 twice daily
Chronic anemia
-stable
Paroxysmal atrial fibrillation
-[id number] score 5
-Continue Eliquis
Chronic HFpEF
-Cardiac BNP 300
-Third-degree heart block status post pacemaker
-home p.o. Lasix
Essential hypertension
-Continue home meds
-Coreg 12.5 mg p.o. twice daily
-Hydralazine 50 mg p.o. 3 times daily
Hyponatremia
- resolved
Type 2 diabetes
-Patient restarted on home insulin regimen,
-Insulin glargine 15 units
-Sliding scale initiated
-Patient started on a diabetic diet
Hyperlipidemia
-Continue home meds
-Atorvastatin 10 mg p.o.
Anxiety
-Continue home meds
-Buspirone 10 mg p.o. twice daily, Lexapro 20 mg p.o.
Chronic back pain
-Home meds are tramadol 50 mg p.o. twice daily
-Continue home meds
Obesity secondary to excess calories
-Affects all aspects of care
Spinal stenosis/chronic back pain
-Pt takes Tylenol 650mg PO q4H PRN, gabapentin 300mg p.o BID
-continue home meds
Full code
DVT prophylaxis�Eliquis
Diabetic diet
Anticipated Discharge: Within 24 hours
Subjective/Interval History
-
Date of Service: April 13, 2024
Patient states he is no longer feeling any symptoms
Objective Data
-
Vital Signs:
Vital Signs
Temp Pulse Resp BP Pulse Ox
98.5 F 62 18 121/57 92
04/13/24 07:35 04/13/24 07:35 04/13/24 07:35 04/13/24 07:35 04/13/24 07:35
I&O
04/12/24 04/13/24 04/14/24
06:59 06:59 06:59
Intake Total 1380 / 1380 1680 / 1680
Balance 1380 / 1380 1680 / 1680
Review of Systems
-
History Source: Patient
Constitutional: Reports No Symptoms
Respiratory: Reports No Symptoms
Cardiac: Reports No Symptoms
Abdomen/GI: Reports No Symptoms
Genitourinary: Reports No Symptoms
Physical Exam
-
General: Well Developed, No Apparent Distress, Comfortable and Morbidly Obese
Respiratory: Clear to Auscultation
Cardiac: Regular Rhythm and S1/S2
GI: Soft, Nontender, Nondistended and Normal Bowel Sounds
Musculoskeletal: Edema, Right Lower Extrem and Edema, Left Lower Extrem
Skin: Warm, Dry and Rash
Neuro: Awake, Alert, Oriented and AO x 3
Psych: Calm and Intact Judgement/Insight
[2024-04-13] MEDS: VISBIOME 1 CAP PO (09:23)
[2024-04-13] MEDS: PROTONIX 40 MG PO (09:23)
[2024-04-13] MEDS: ELIQUIS 5 MG PO ×2 (09:23→21:00)
[2024-04-13] MEDS: COREG 12.5 MG PO ×2 (09:23→21:00)
[2024-04-13] MEDS: APRESOLINE 50 MG PO ×2 (09:23→22:08)
[2024-04-13] MEDS: LASIX 40 MG PO (09:24)
[2024-04-13] MEDS: BUSPAR 10 MG PO ×2 (09:24→21:03)
[2024-04-13] MEDS: NEURONTIN 300 MG PO ×2 (09:24→21:00)
[2024-04-13] MEDS: ULTRAM 50 MG PO ×2 (09:24→21:00)
[2024-04-13] MEDS: LEXAPRO 20 MG PO (09:25)
[2024-04-13] MEDS: REFRESH EYE DROPS (PF) 1 DROPS BOTH EYES (09:28)
--- NOTE | 2024-04-13 10:54 | CM ---
Addendum entered by Genny Parker RN 04/13/24 13:58:
Referrals have been sent to area SNFs. All [facility] facilities will not accept patient; [facility], [facility], [facility] no beds; [facility] no contract; [facility] looking [facility] left on policy; [facility] awaiting response.
Original Note:
Reviewed the chart notes and spoke with the patient at the bedside. Patient was for discharge to home today with [facility], but now patient is requesting SNF/rehab. Referrals sent via [facility]. RN, attending and voice message left for sister with
regards to the above.
[2024-04-13 11:20] LABS: Glucose - Point of Care 224 mg/dl (70-99)
[2024-04-13 11:37] VITALS: BP 99/60
[2024-04-13] MEDS: NOVOLOG FLEXPEN-LOW RESISTANCE 2 UNITS SC (13:27)
[2024-04-13 15:57] VITALS: BP 107/60
[2024-04-13 16:15] LABS: Glucose - Point of Care 129 mg/dl (70-99)
[2024-04-13] MEDS: APRESOLINE PO (18:27)
[2024-04-13] MEDS: LANTUS 0.15 UNITS SC (21:04)
[2024-04-13 21:08] LABS: Glucose - Point of Care 176 mg/dl (70-99)
[2024-04-13] MEDS: LIPITOR 10 MG PO (22:08)
[2024-04-13 22:37] VITALS: PULSE 2; PULSE 83
[2024-04-13 23:25] VITALS: BP 118/54
[2024-04-14 03:40] VITALS: PULSE 2
[2024-04-14 06:00] VITALS: BMI 36.3
[2024-04-14 07:15] VITALS: BP 121/51
[2024-04-14 07:51] LABS: Glucose - Point of Care 121 mg/dl (70-99)
[2024-04-14] MEDS: NOVOLOG FLEXPEN-LOW RESISTANCE SC ×2 (07:53→17:29)
[2024-04-14] MEDS: ADVAIR HFA 45/21 MCG INHALER 2 PUFF INH ×2 (08:11→18:09)
[2024-04-14] MEDS: NEURONTIN 300 MG PO ×2 (08:51→20:13)
[2024-04-14] MEDS: PROTONIX 40 MG PO (08:51)
[2024-04-14] MEDS: ULTRAM 50 MG PO ×2 (08:51→20:13)
[2024-04-14] MEDS: BUSPAR 10 MG PO ×2 (08:51→20:13)
[2024-04-14] MEDS: VISBIOME 1 CAP PO (08:51)
[2024-04-14] MEDS: LEXAPRO 20 MG PO (08:51)
[2024-04-14] MEDS: ELIQUIS 5 MG PO ×2 (08:51→20:13)
[2024-04-14] MEDS: COREG PO (08:57)
[2024-04-14] MEDS: LASIX 40 MG PO (08:59)
[2024-04-14] MEDS: APRESOLINE 50 MG PO ×3 (08:59→21:47)
[2024-04-14] MEDS: REFRESH EYE DROPS (PF) 1 DROPS BOTH EYES (09:02)
[2024-04-14] MEDS: SENOKOT-S 1 TABLET PO (09:57)
[2024-04-14 12:44] LABS: Glucose - Point of Care 188 mg/dl (70-99)
[2024-04-14] MEDS: NOVOLOG FLEXPEN-LOW RESISTANCE 1 UNITS SC (13:03)
--- NOTE | 2024-04-14 13:32 | W.PN.HOSP.TC ---
Addendum entered and electronically signed by Mak De Jesus MD 04/14/24 15:26:
I saw and evaluated the patient. I reviewed the resident�s note and agree with findings and plan as documented in the resident�s note.
Patient complaining of having constipation at this point, last bowel movement was 3 days back.
I saw and evaluated the patient. I reviewed the resident�s note and agree with findings and plan as documented in the resident�s note.
1. Acute gastroenteritis - resolved
C. difficile antigen positive
-Stool studies have been negative for any pathologic organism
-Patient Cdiff antigen positive, toxin negative
-Diarrhea is improved no concern of active C. difficile infection. Continue monitoring
-Probiotic/Visbiome daily ordered
-Patient complaining feeling constipated today, provide Colace and monitor stool output. Avoid laxative.
2. NAOMI - resolved
-cr of 1.8 at admission, down to 1.2 today, GFR of > 60
-presumed pre-renal in nature.
3. Hypokalemia
- Gi loss related
- replace as needed
4. Dyspnea
- patient not hypoxic. Lung exam is clear.
- CXR did not show any acute abnormalities
- possibly related to chronic debility/HF related
5. Chronic diastolic HF
- no signs of exacerbation
- maintain on oral lasix 40mg/d
- follow weight/cr
Awaiting SNF replacement. Patient have been declined by multiple facilities due to previous behavior problems.
Discussed briefly with patient if unable to find SNF rehab will need to go home with home health care.
Original Note:
Today's Communication/Plan
-
Work on finding placement
Assessment / Plan
Assessment / Plan
Impression: 73-year-old man who presented with episode of acute gastroenteritis, as well as volume depletion secondary to diarrhea
Plan:
# Viral acute gastroenteritis
-Resolved, no episodes of diarrhea reported
-Patient was n.p.o. first night, transition to diabetic diet. Patient tolerating diet well with no nausea or vomiting
-Stool culture, C. difficile was negative for toxins but positive for C. difficile.
-Results mean patient does not have C. difficile infection
-Patient lives alone and will require support once discharged
-CM consult, regarding transport. However patient states that his insurance will cover transport will ask case management to see patient today as this is the only issue keeping him in the hospital under observation
-Patient states multiple times he does not want to go home as he does not feel he can, all issues have resolved, medically he is cleared to be discharged
-Patient decided he would like to be transferred to a rehab facility instead of home
-Rehab facilities have been denying him access due to issues he has caused in the past with them
-Case management is working on finding him placement and to give him all the resources needed for outpatient follow up and transportation
#Constipation
-Patient complains of constipation not having a bowel movement last 3 days
-P.o. docusate and senna was ordered as needed
# Acute kidney injury, prerenal on CKD 3B
-Creatinine admission was 1.8 patient's baseline is 1.3
-Creatinine 1.2
-Resolved
-Restarted p.o. Lasix 40 mg p.o. once daily, edema improved
-Home valsartan
#Hypokalemia
-Resolved.
COPD
-Continue home meds
-Fluticasone/salmeterol 45 twice daily
Chronic anemia
-stable
Paroxysmal atrial fibrillation
-[id number] score 5
-Continue Eliquis
Chronic HFpEF
-Cardiac BNP 300
-Third-degree heart block status post pacemaker
-home p.o. Lasix
Essential hypertension
-Continue home meds
-Patient's heart rates have been in the high 50s low 60s, Coreg was held this morning
-Coreg was decreased to 6.5 mg p.o. twice daily, with restrictions to not give if heart rate under 60 or systolics under 100
-Hydralazine 50 mg p.o. 3 times daily
Hyponatremia
- resolved
Type 2 diabetes
-Patient restarted on home insulin regimen,
-Insulin glargine 15 units
-Sliding scale initiated
-Patient started on a diabetic diet
Hyperlipidemia
-Continue home meds
-Atorvastatin 10 mg p.o.
Anxiety
-Continue home meds
-Buspirone 10 mg p.o. twice daily, Lexapro 20 mg p.o.
Chronic back pain
-Home meds are tramadol 50 mg p.o. twice daily
-Continue home meds
Obesity secondary to excess calories
-Affects all aspects of care
Spinal stenosis/chronic back pain
-Pt takes Tylenol 650mg PO q4H PRN, gabapentin 300mg p.o BID
-continue home meds
Full code
DVT prophylaxis�Eliquis
Diabetic diet
Anticipated Discharge: Today
Subjective/Interval History
-
Date of Service: April 14, 2024
Still working on social issues, was denied rehab by rehab facilities
Objective Data
-
Labs:
Checking labs every other day
Vital Signs:
Vital Signs
Temp Pulse Resp BP Pulse Ox
97.6 F 55 16 121/51 92
04/14/24 07:15 04/14/24 08:59 04/14/24 08:13 04/14/24 08:59 04/14/24 08:13
I&O
04/13/24 04/14/24 04/15/24
06:59 06:59 06:59
Intake Total 1679 / 1679
Balance 1680 / 0 2039
Review of Systems
-
History Source: Patient
Constitutional: Reports No Symptoms
Respiratory: Reports No Symptoms
Cardiac: Reports No Symptoms
Abdomen/GI: Reports Constipated
Genitourinary: Reports No Symptoms
Skin: Reports No Symptoms
Psych: Reports Depressed
Physical Exam
-
General: Well Developed, Well Nourished, No Apparent Distress, Comfortable and Morbidly Obese
Respiratory: Clear to Auscultation
Cardiac: Regular Rhythm
GI: Soft, Nontender, Nondistended and Normal Bowel Sounds
Skin: Warm, Dry and Lesions
Psych: Calm and Intact Judgement/Insight
[2024-04-14 15:40] VITALS: BP 124/58
--- NOTE | 2024-04-14 16:05 | CM ---
Reviewed the chart notes and spoke with the patient's sister via telephone and updated the patient at the bedside. [facility] has accepted the patient. Auth started with [facility] Plan [employer] [id number] effective 04/05/24;
Provider # [phone]; Member # [phone]. Received pended auth# [id number]. Per shipping services sales representative, UR team will reach out to for further clinicals. CM requested fax number for clinicals, they are unable to provide. Need to wait until UR
team reaches out to . CM continues to be available to patient/family and is monitoring medical plan for needs at discharge.
Plan: Discharge to [facility] once auth obtained. Per shipping services sales representative, no transport benefit under his policy.
[2024-04-14 16:58] LABS: Glucose - Point of Care 112 mg/dl (70-99)
[2024-04-14] MEDS: COREG 6.25 MG PO (20:13)
[2024-04-14 21:46] LABS: Glucose - Point of Care 158 mg/dl (70-99)
[2024-04-14] MEDS: LIPITOR 10 MG PO (21:46)
[2024-04-14] MEDS: LANTUS 0.15 UNITS SC (21:46)
[2024-04-14 22:15] VITALS: PULSE 2; PULSE 74
[2024-04-14 23:33] VITALS: BP 131/60
[2024-04-15 03:34] VITALS: PULSE 2; PULSE 77
[2024-04-15 05:39] VITALS: BMI 36.5
[2024-04-15 07:35] VITALS: BP 120/50
[2024-04-15] MEDS: ADVAIR HFA 45/21 MCG INHALER 2 PUFF INH (07:37)
[2024-04-15 07:47] LABS: Glucose - Point of Care 98 mg/dl (70-99)
[2024-04-15] MEDS: NOVOLOG FLEXPEN-LOW RESISTANCE SC ×2 (07:52→17:30)
--- NOTE | 2024-04-15 09:28 | W.PN.HOSP.TC ---
Addendum entered and electronically signed by Mak De Jesus MD 04/16/24 08:21:
I saw and evaluated the patient. I reviewed the resident�s note and agree with findings and plan as documented in the resident�s note.
Please see update note from today for further comments.
Original Note:
Today's Communication/Plan
-
Discharge with placement to rehab
Assessment / Plan
Assessment / Plan
Impression: 73-year-old man who presented with episode of acute gastroenteritis, as well as volume depletion secondary to diarrhea
Plan:
# Viral acute gastroenteritis
-Resolved, no episodes of diarrhea reported
-Patient was n.p.o. first night, transition to diabetic diet. Patient tolerating diet well with no nausea or vomiting
-Stool culture, C. difficile was negative for toxins but positive for C. difficile.
-Results mean patient does not have C. difficile infection
-Patient lives alone and will require support once discharged
-CM consult, regarding transport. However patient states that his insurance will cover transport will ask case management to see patient today as this is the only issue keeping him in the hospital under observation
-Patient states multiple times he does not want to go home as he does not feel he can, all issues have resolved, medically he is cleared to be discharged
-Patient decided he would like to be transferred to a rehab facility instead of home
-Placement was found for patient, he will be discharged
-Case management is working on finding him placement and to give him all the resources needed for outpatient follow up and transportation
#Constipation
-Patient complains of constipation not having a bowel movement last 3 days
-P.o. docusate and senna was ordered as needed
# Acute kidney injury, prerenal on CKD 3B
-Creatinine admission was 1.8 patient's baseline is 1.3
-Creatinine 1.2
-Resolved
-Restarted p.o. Lasix 40 mg p.o. once daily, edema improved
-Home valsartan
#Hypokalemia
-Resolved.
COPD
-Continue home meds
-Fluticasone/salmeterol 45 twice daily
Chronic anemia
-stable
Paroxysmal atrial fibrillation
-[id number] score 5
-Continue Eliquis
Chronic HFpEF
-Cardiac BNP 300
-Third-degree heart block status post pacemaker
-home p.o. Lasix
Essential hypertension
-Continue home meds
-Patient's heart rates have been in the high 50s low 60s, Coreg was held this morning
-Coreg was decreased to 6.5 mg p.o. twice daily, with restrictions to not give if heart rate under 60 or systolics under 100
-Hydralazine 50 mg p.o. 3 times daily
Hyponatremia
- resolved
Type 2 diabetes
-Patient restarted on home insulin regimen,
-Insulin glargine 15 units
-Sliding scale initiated
-Patient started on a diabetic diet
Hyperlipidemia
-Continue home meds
-Atorvastatin 10 mg p.o.
Anxiety
-Continue home meds
-Buspirone 10 mg p.o. twice daily, Lexapro 20 mg p.o.
Chronic back pain
-Home meds are tramadol 50 mg p.o. twice daily
-Continue home meds
Obesity secondary to excess calories
-Affects all aspects of care
Spinal stenosis/chronic back pain
-Pt takes Tylenol 650mg PO q4H PRN, gabapentin 300mg p.o BID
-continue home meds
Full code
DVT prophylaxis�Eliquis
Diabetic diet
Anticipated Discharge: Today
Subjective/Interval History
-
Date of Service: April 15, 2024
No acute events overnight, placement has been found
Objective Data
-
Labs:
Laboratory Results
04/15/24
07:17
WBC Pending
Hgb Pending
Hct Pending
Plt Count Pending
Sodium Pending
Potassium Pending
Chloride Pending
Carbon Dioxide Pending
BUN Pending
Creatinine Pending
Glucose Pending
Calcium Pending
Vital Signs:
Vital Signs
Temp Pulse Resp BP Pulse Ox
98.2 F 62 18 120/50 94
04/15/24 07:35 04/15/24 07:39 04/15/24 07:39 04/15/24 07:35 04/15/24 07:39
I&O
04/14/24 04/15/24 04/16/24
06:59 06:59 06:59
Intake Total 2039 1560 / 1560
Balance 2039 1560 / 1560
Review of Systems
-
History Source: Patient
Constitutional: Reports No Symptoms
Respiratory: Reports No Symptoms
Cardiac: Reports No Symptoms
Abdomen/GI: Reports No Symptoms
Skin: Reports No Symptoms
Physical Exam
-
General: Well Developed, Well Nourished, No Apparent Distress, Comfortable and Obese
Respiratory: Clear to Auscultation
Cardiac: Regular Rhythm and S1/S2
GI: Soft, Nontender, Nondistended and Normal Bowel Sounds
Musculoskeletal: No Edema
Skin: Warm and Dry
Neuro: Awake, Alert, Oriented and AO x 3
Psych: Calm and Intact Judgement/Insight
[2024-04-15] MEDS: NEURONTIN 300 MG PO ×2 (09:38→19:13)
[2024-04-15] MEDS: ULTRAM 50 MG PO ×2 (09:39→19:13)
[2024-04-15] MEDS: ELIQUIS 5 MG PO ×2 (09:39→19:13)
[2024-04-15] MEDS: BUSPAR 10 MG PO ×2 (09:39→19:13)
[2024-04-15] MEDS: PROTONIX 40 MG PO (09:39)
[2024-04-15] MEDS: APRESOLINE 50 MG PO ×2 (09:39→15:04)
[2024-04-15] MEDS: VISBIOME 1 CAP PO (09:40)
[2024-04-15] MEDS: COREG 6.25 MG PO ×2 (09:40→19:13)
[2024-04-15] MEDS: LASIX 40 MG PO (09:40)
[2024-04-15] MEDS: LEXAPRO 20 MG PO (09:40)
--- NOTE | 2024-04-15 09:48 | CM ---
Addendum entered by Genny Parker RN 04/15/24 16:40:
Updated patient and his sister Kyra of plan for discharge ciara to [facility].
Addendum entered by Genny Parker RN 04/15/24 16:14:
Auth received from [facility] for [facility] starting 04/15-04/19; NRD 04/19 fax clinicals to [facility] ([phone]); Auth [id number]; Ref# [id number]
Call report to: [phone]
Fax report to: [phone]
Medical necessity and transport form on chart.
Original Note:
Received voice message from [facility] requesting clinicals be faxed to ([phone]). Faxed. Reference #[id number].
Plan: Discharge to [facility] once auth obtained.
[2024-04-15 12:19] LABS: Glucose - Point of Care 210 mg/dl (70-99)
[2024-04-15] MEDS: NOVOLOG FLEXPEN-LOW RESISTANCE 2 UNITS SC (12:19)
--- NOTE | 2024-04-15 13:48 | W.PN.UPDATE ---
Update Note
Progress Note Update
I saw and evaluated the patient. I reviewed the resident�s note and agree with findings and plan as documented in the resident�s note.
Patient had a bowel movement after getting docusate/senna yesterday still have some bloating and feels stool is hard to pass.
1. Acute gastroenteritis - resolved
C. difficile antigen positive
-Stool studies have been negative for any pathologic organism
-Patient C-diff antigen positive, toxin negative
-Diarrhea is improved no concern of active C. difficile infection. Continue monitoring
-Probiotic/Visbiome daily ordered
-Patient had bowel yesterday although still feels not completely relieved. Providing MiraLAX
2. NAOMI - resolved
-cr of 1.8 at admission, down to 1.2 today, GFR of > 60
-presumed pre-renal in nature.
3. Hypokalemia
- Gi loss related
- replace as needed
4. Dyspnea
- patient not hypoxic. Lung exam is clear.
- CXR did not show any acute abnormalities
- possibly related to chronic debility/HF related
5. Chronic diastolic HF
- no signs of exacerbation
- Weight trending upward, 115kg. giving extra dose of IV lasix 40mg x1 for evening.
Awaiting SNF placement. [facility] will accept pending insurance approval
[2024-04-15 15:00] VITALS: BP 145/55
[2024-04-15] MEDS: MIRALAX 17 GRAMS PO (15:04)
[2024-04-15] MEDS: LASIX 40 MG IV (15:07)
[2024-04-15 17:24] LABS: Glucose - Point of Care 115 mg/dl (70-99)
--- NOTE | 2024-04-15 17:45 | PTCARENOTE ---
pt d/c to [facility]. transport to come at 1930 to take patient to [facility]. Called and gave report . Informed nurse 2000 meds will be given prior to transport.
[2024-04-15 18:15] VITALS: BP 137/56
[2024-04-15] MEDS: REFRESH EYE DROPS (PF) 1 DROPS BOTH EYES (19:18)
== END 2024-04-15 19:43 ==
LOC: 2 NORTH 21:12
PROVIDERS: Physician Assistant; ADMITTING PHYSICIAN Hospitalist; ATTENDING PHYSICIAN Hospitalist; EMERGENCY PHYSICIAN Emergency Medicine
DX: K52.9 Noninfective gastroenteritis and colitis, unspecified (principal); N18.32 Chronic kidney disease, stage 3b; D64.9 Anemia, unspecified; I48.0 Paroxysmal atrial fibrillation; I44.2 Atrioventricular block, complete; I50.32 Chronic diastolic (congestive) heart failure; G47.33 Obstructive sleep apnea (adult) (pediatric); J44.9 Chronic obstructive pulmonary disease, unspecified; E11.9 Type 2 diabetes mellitus without complications; I27.20 Pulmonary hypertension, unspecified; E78.5 Hyperlipidemia, unspecified; G89.29 Other chronic pain; F41.9 Anxiety disorder, unspecified; E87.1 Hypo-osmolality and hyponatremia; K59.09 Other constipation; M25.552 Pain in left hip; R26.2 Difficulty in walking, not elsewhere classified; E87.6 Hypokalemia; E66.01 Morbid (severe) obesity due to excess calories; M41.9 Scoliosis, unspecified; M54.50 Low back pain, unspecified; R60.0 Localized edema; N17.9 Acute kidney failure, unspecified; I13.0 Hypertensive heart and chronic kidney disease with heart failure and stage 1 through stage 4 chronic kidney disease, or unspecified chronic kidney disease; E11.22 Type 2 diabetes mellitus with diabetic chronic kidney disease; Z68.36 Body mass index [BMI] 36.0-36.9, adult; Z95.0 Presence of cardiac pacemaker; Z87.01 Personal history of pneumonia (recurrent); Z79.01 Long term (current) use of anticoagulants; Z79.51 Long term (current) use of inhaled steroids; Z79.52 Long term (current) use of systemic steroids; Z79.4 Long term (current) use of insulin; Z75.1 Person awaiting admission to adequate facility elsewhere; Z60.2 Problems related to living alone
CPT/HCPCS: 71046; 74018; 80053; 82962; 83036; 83880; 84484; 85025; 87045; 87046; 87070; 87077; 87324; 87427; 87449; 94640; 94660; 97162; 97530; 99285

== ENCOUNTER 2024-05-16 23:44 | Inpatient (IN) | payer MEDICARE, SELFPAY ==
[2024-05-16 18:39] VITALS: BP 113/45
[2024-05-16 18:56] VITALS: BMI 38.2
--- NOTE | 2024-05-16 19:19 | ED.GENMED ---
History of Present Illness
General
Chief Complaint: Chest Pain
Source: patient
Exam Limitations: none
Time Seen by Provider: 05/16/24 18:43
History of Present Illness
History of Present Illness:
This is a 73 year old male that comes in by EMS with c/o chest pain. States that he was up in the wheelchair today and then he was in bed when he started with chest pain and squeezing. States that he was sweating profusely. States that he feels SOB,
nauseated and had diarrhea. Denies any fever, chills, abd pain, vomiting, headache, dizziness, urinary burning.
Spoke with patient sister Kyra. States that she was there in the morning and gave him his morning medication. When she went back in the afternoon he was in bed and he was out of it. States that he was very lethargic and c/o pain. States that he
was just discharge form the group home on .
Past History
Past History
ED Past Medical History: Arrthythmia (Atrial fib), Asthma, CHF, COPD, HTN, IDDM, VA (Denies) and Other (Sleep apnea uses CPAP, Neuropathy, PNA, )
ED Past Surgical History: Cardiac (Pacemaker for III degree heart blocl), Orthopedic (Right hip surgery, Back surgery, ) and Tonsilectomy
Social History
Tobacco: Non-smoker
Alcohol: None
Personal: Single
Living: with family (Sister)
Family History
Family History: Unable to obtain
Review of Systems
Review of Systems
All Other Systems: ROS reviewed and negative except as documented in HPI and ROS
Constitutional: Reports no symptoms; Denies fever or chills
EENT: Reports no symptoms
Respiratory: Reports trouble breathing; Denies cough
Cardiac: Reports chest pain
ABD/GI: Reports nausea and diarrhea; Denies abdominal pain or vomiting
: Reports no symptoms; Denies dysuria, frequency or urgency
Musculoskeletal: Reports no symptoms
Skin: Reports no symptoms
Neurological: Reports no symptoms; Denies dizzy or headache
Psychiatric: Reports no symptoms
Phy Exam
General Physical Exam
General Presentation: no apparent distress
General age: appears stated age
General Skin: warm and dry
General Habitus: debilitated and elderly
General Mental: alert and other (Patient is very Lethargic, arouses with name called )
General Hydration: dry mucous membranes
ENT Exam
ENT Exam: TM's normal, pharynx normal and neck supple
Eye Exam
Eye Exam: EOMI
Cardiovascular Exam
Cardiovascular Exam: regular rate/rhythm and normal peripheral pulses
Pulmonary Exam
Pulmonary Exam: lungs clear, no respiratory distress, no rales, chest non tender, no crackles, no rhonchi, no wheezing and no cough
Gastrointestinal Exam
Gastrointestinal Exam: normal bowel sounds, non tender, soft, no organomegaly, no pulsatile mass, non distended and other (obese)
Musculoskeletal Exam
Musculoskeletal Exam: full ROM and edema (slight ankle and lower leg nonpitting edema)
Skin Exam
Skin Exam: normal color, warm/dry and no petechia
Psychiatric Exam
Psychiatric Exam: other (Lethargic but arousable. )
Scores
Heart Score for Chest Pain Patients
STEMI patient?: No
History: Moderately Suspicious
ECG: Normal
Age: >/= 65 years
Risk Factors: >/= 3 Risk Factors or History of CAD
Troponin: >1 - <3 x Normal Limit
Heart Score for Chest Pain Patients: 6
Heart Score Risk: 20.3% MACE over next 6 weeks
Course
Orders/Labs/Results
Orders:
Orders
05/16/24 18:51
Electrocardiogram (*1) Urgent
Reason for Study: Chest Pain
EKG- Treatment ONCE
05/16/24 19:18
CR Chest - 2 Views Urgent
Comment:
Reason For Exam: Chest pain, SOB
05/16/24 19:19
0.9% Sodium Chloride 500 ml [Nss] 500 ml IV BOLUS
05/16/24 19:25
Basic Metabolic Panel Urgent
Complete Blood Count/With Diff Urgent
05/16/24 19:45
Lactic Acid Urgent
Hkbuo-Udch-Syaczhz Urgent
Comment: ADD ON
Potassium Urgent
Comment: ADD ON
Procalcitonin Urgent
Troponin I Urgent
05/16/24 20:55
CT Head W/o Iv Contrast Urgent
Comment:
Reason For Exam: Change in mental status
05/16/24 22:24
Urinalysis Reflex To Culture Urgent
Date Specimen was Collected: 05/16/24
Time Specimen was Collected: 22:21
05/16/24 22:45
Electrocardiogram (*1) Urgent
Reason for Study: Chest Pain
Other Reason for Exam: Repeat with Troponin
EKG- Treatment ONCE
Troponin I Urgent
Abnormal Lab Results
05/16/24 05/16/24
19:25 19:45
RBC 3.77 L 10^6/uL
(4.70-6.10)
Hgb 12.1 L g/dL
(13.0-18.0)
Hct 32.7 L %
(39.0-52.0)
MCH 32.1 H pg
(27.0-31.0)
RDW 14.6 H %
(11.5-14.5)
MPV 12.1 H fL
(7.4-10.4)
Abs Immat Gran (auto) 0.1 H 10^3/uL
(0-0.05)
Absolute Neuts (auto) 8.0 H 10^3/uL
(1.4-6.5)
Absolute Lymphs (auto) 1.1 L 10^3/uL
(1.2-3.4)
Immature Gran % 1.1 H %
(0-0.5)
Neutrophils % 81.3 H %
(42.2-75.2)
Lymphocytes % 11.2 L %
(20.5-51.1)
BUN 31 H mg/dl
(9-20)
Troponin I 0.043 H* ng/ml
05/16/24 19:25
05/16/24 19:45
H/H slightly low, Dehydration. Troponin elevation. Lactic acid normal at 0.8, Procalcitonin 0.05
Vital Signs
Initial and Last Documented VS:
Initial Vital Signs
Temp Pulse Resp BP Pulse Ox
97.3 F 72 20 113/45 93
05/16/24 18:39 05/16/24 18:39 05/16/24 18:39 05/16/24 18:39 05/16/24 18:39
Last Documented Vital Signs
Temp Pulse Resp BP Pulse Ox
97.3 F 61 19 139/66 94
05/16/24 18:39 05/16/24 20:00 05/16/24 20:00 05/16/24 20:00 05/16/24 20:00
MDM/Problems Addressed
Differential Diagnosis Includes:
Coronary syndrome,
MDM/Problems Addressed:
This is a 73 year old male that is brought in by EMS. States that he was in bed when he started with chest pain and squeezing. states that he is SOB, nauseated and had diarrhea.
Will check labs, give IV fluids. Chest x-ray and urine. Patient is very lethargic and will fall back to sleep very easily.
Back into see patient. Patent is much more awake at this time. Explained that he will be admitted as his Troponin is elevated. States that he still feels SOB but is not having any chest discomfort. Hospitalist notified about admission.
Repeat ECG- Rate 73, AV paced. left axis.
Chronic conditions affecting care: DM and CAD
Acute Exacerbation and/or Progression of Chronic Illness: CAD
*Radiology
Radiology exam reviewed: preliminary read by ED provider (Chest- cardiomegaly, Negative for acute disease. ) and radiology read reviewed (Chest-stable moderate elevation right hemidiaphragm. Lungs appear clear radiographically. CT head-NO evidence
of acute intracranial abnormality. )
*Pulse Oximetry
Patient hypoxic: no
*EKG
Interpreted by ED Provider?: Yes
Heart Rate: 56
Rate: bradycardiac
Rhythm: ventricular paced
Nichols: left axis deviation
*Adoption Manager Interpretation
Rate: normal
Heart Rate: 67
Rhythm: sinus
*Critical Care Note
Total Time (30-74mins, 75-104mins- exclusive of procedures): Not Applicable
ED Attending Note
-
Portions of this chart may have been created with voice recognition software.� Occasional wrong word or��sound alike� substitutions may have occurred due to the inherent limitations of voice recognition software.
Discharge Plan
Departure
Patient Disposition: Admit
Date of Disposition: 05/16/24
Time of Disposition: 22:33
Admit to: Telemetry
Presentation/result/management discussed w/ accepting MD/DO: Hospitalist
Patient with high blood pressure during this ER visit?: Yes
Condition: Good
Covid-19: Not Applicable
Discharge Problem:
Chest pain, Elevated troponin, Shortness of breath
Prescriptions:
No Action
atorvastatin [Lipitor] 10 mg Tablet
10 mg PO HS
escitalopram oxalate [Lexapro] 20 mg Tablet
20 mg PO DAILY
fluticasone propion-salmeterol [Wixela Inhub] 100-50 mcg/dose Blister With Device
1 inh INHALATION R BID
Eliquis 5 mg tablet
5 mg PO BID Qty: 30 0RF
gabapentin 300 mg capsule
300 mg PO BID
pantoprazole [Protonix] 40 mg Tablet,Delayed Release (Dr/Ec)
40 mg PO DAILY
buspirone 10 mg Tablet
10 mg PO BID
carvedilol 12.5 mg Tablet
12.5 mg PO BID Qty: 10 0RF
furosemide 40 mg Tablet
40 mg PO DAILY Qty: 0 0RF
hydralazine 50 mg Tablet
50 mg PO TID
insulin lispro 100 unit/mL solution
0 sliding scale dose SC AC
Patient Comments:
04/09/24:141-180=4u,181-220=6u,221-260=8u,261-300=10u,301-350=12u,351-400=14u,401-500=16u
losartan 100 mg Tablet
100 mg PO DAILY
insulin glargine [Lantus Solostar U-100 Insulin] 100 unit/mL (3 mL) Insulin Pen
15 unit SC HS
Refresh Classic (PF) 1.4-0.6 % dropperette
1 drops BOTH EYES QIDPRN PRN (Reason: dry eyes)
Referrals:
UNKNOWN - PT DOES,NOT KNOW [Family Provider] -
Interventions
Interventions:
*Risk Screen - Suicide Last Done: 05/16/24 18:39
*General Assessment Last Done: 05/16/24 18:39
*Neglect/Abuse Screening Last Done: 05/16/24 18:39
ED- Fall Risk Assessment Last Done: 05/16/24 19:54
*ED COVID-19 Vaccine History Last Done: 05/16/24 19:56
ED- Cardiac Assessment Last Done: 05/16/24 19:54
Discharge Date and Time
Print Language: ITALIAN
[2024-05-16 19:31] LABS: % Basophils 0.7 % (0-2); % Eosinophils 0.6 % (0-6); % Immature Granulocytes 1.1 % (0-0.5); % Lymphocytes 11.2 % (20.5-51.1); % Monocytes 5.1 % (1.7-9.3); % Neutrophils 81.3 % (42.2-75.2); Absolute Basophils 0.1 10^3/uL (0-0.2); Absolute Eosinophils 0.1 10^3/uL (0-0.7); Absolute Immature Granulocytes 0.1 10^3/uL (0-0.05); Absolute Lymphocytes 1.1 10^3/uL (1.2-3.4); Absolute Monocytes 0.5 10^3/uL (0.1-0.6); Hematocrit 32.7 % (39.0-52.0); Hemoglobin 12.1 g/dL (13.0-18.0); Mean Corpuscular Hgb 32.1 pg (27.0-31.0); Mean Corpuscular Volume 86.7 fL (80.0-94.0); Mean Platelet Volume 12.1 fL (7.4-10.4); Nucleated Red Blood Cells % 0 % (-); Platelet Count 184 10^3/uL (130-400); Red Blood Cell Count 3.77 10^6/uL (4.70-6.10); Red Cell Dist. Width 14.6 % (11.5-14.5); White Blood Cell Count 9.9 10^3/uL (4.8-10.8)
[2024-05-16 19:32] LABS: Glucose - Point of Care 82 mg/dl (70-99)
[2024-05-16 19:48] LABS: Blood Urea Nitrogen 31 mg/dl (9-20); Calcium 9.1 mg/dl (8.4-10.2); Carbon Dioxide 25 mmol/L (22-30); Chloride 106 mmol/L (98-107); Estimated Creatinine Clearance 64 ml/min; Glucose 72 mg/dl (70-99); Sodium 137 mmol/L (135-145); eGFR 57.29
[2024-05-16] MEDS: NSS 500 IV (19:57)
[2024-05-16 20:00] VITALS: BP 139/66
[2024-05-16 20:03] LABS: Lactic Acid 0.8 mmol/L (0.7-2.0)
--- NOTE | 2024-05-16 20:08 | EDRN ---
All blood work obtained. L upper arm #20g unable to infuse ivf. [facility] called for IV access and will be down.
[2024-05-16 20:17] LABS: ALT (SGPT) 13 U/L (0-50); AST (SGOT) 25 U/L (17-59); Albumin 4.1 g/dl (3.5-5.0); Alkaline Phosphatase 72 U/L (38-126); Direct Bilirubin 0.2 mg/dl (0.0-0.4); Potassium 3.9 mmol/L (3.5-5.1); Total Bilirubin 0.9 mg/dl (0.2-1.3); Total Protein 6.8 g/dl (6.3-8.2)
[2024-05-16 20:19] LABS: Troponin I 0.043 ng/ml
[2024-05-16 20:20] LABS: Procalcitonin 0.05 ng/ml (0.0-0.25)
--- NOTE | 2024-05-16 20:57 | EDRN ---
Zoran from [facility] inserted #22g L ACF and restarted IVF. Infiltrated IV removed by Zoran, RN
[2024-05-16 22:27] VITALS: BP 143/64
[2024-05-16 22:32] LABS: Urine Albumin Trace (Neg - Trace); Urine Bilirubin Negative (Negative); Urine Character Clear (Clear); Urine Color Yellow; Urine Glucose Negative (Negative); Urine Ketone Negative (Negative); Urine Leukocyte Negative (Negative); Urine Nitrite Negative (Negative); Urine Occult Blood Negative (Negative); Urine Urobilinogen Negative (Neg - 1+)
[2024-05-16 23:00] VITALS: BP 155/68
--- NOTE | 2024-05-16 23:14 | HPS.HSE ---
Family Physician
-
Family Physician: NOT KNOW UNKNOWN - PT DOES
Chief Complaint
-
SOB
History of Present Illness
73 year old male that comes in by EMS with c/o chest pain. It was Stated that he was up in the wheelchair today and then he was in bed and started to have chest pain and a chest squeezing feeling. He Stated that he was sweating profusely, that he
felt SOB, nauseated and had diarrhea. He Denies any fever, chills, abd pain, vomiting, headache, dizziness, urinary burning. At the time of my interview, he had no chest pain or SOB.
The ED Spoke with patient's sister Kyra. She stated that 'she was there in the morning and gave him his morning medication. When she went back in the afternoon he was in bed and he was out of it. States that he was very lethargic and c/o pain.
States that [facility]'
Medical History
Past Medical History
Past Medical History: Reports Other
Additional Past Medical History:
Arrthythmia (Atrial fib),
Asthma,
CHF,
COPD,
essential HTN,
IDDM,
Sleep apnea uses CPAP,
Neuropathy,
PNA
Pacemaker for III degree heart block
Right hip surgery,
Back surgery,
Tonsilectomy
Past Surgical History: Reports Other
Additional Past Surgical History:
See above
Social History
Tobacco: Non-smoker
Alcohol: None
Drug: None
Family History
Family History: Not pertinent
Allergies / Home Medications
Allergies reflects when Allergies were last updated in [facility].
Home Medications with original date entered in [facility]
Allergy/Medication List:
Allergies
Allergy/AdvReac Type Severity Reaction Status Date / Time
No Known Allergies Allergy Verified 05/16/24 18:50
Home Medications
atorvastatin 10 mg tablet (Lipitor) 10 mg PO HS High cholesterol 09/04/22
escitalopram oxalate 20 mg tablet (Lexapro) 20 mg PO DAILY Depression 09/04/22
fluticasone 100 mcg-salmeterol 50 mcg/dose blistr powdr for inhalation (Wixela Inhub) 1 inh inhalation R BID Lung/breathing issues 09/05/22
apixaban 5 mg tablet (Eliquis) 5 mg PO BID Blood thinner #30 tabs 05/06/23
gabapentin 300 mg capsule 300 mg PO BID Pain 06/12/23
buspirone 10 mg tablet 10 mg PO BID Mental Health/Anxiety 11/27/23
pantoprazole 40 mg tablet,delayed release (Protonix) 40 mg PO DAILY Gastrointestinal Issue 11/27/23
carvedilol 12.5 mg tablet 12.5 mg PO BID Blood pressure #10 tabs 01/30/24
furosemide 40 mg tablet 40 mg PO DAILY Fluid retention/Swelling #0 tabs 01/30/24
hydralazine 50 mg tablet 50 mg PO TID Blood Pressure 04/09/24
insulin glargine 100 unit/mL (3 mL) subcutaneous pen (Lantus Solostar U-100 Insulin) 15 unit SC HS Diabetes 04/09/24
insulin lispro 100 unit/mL subcutaneous solution 0 sliding scale dose SC AC Diabetes 04/09/24
losartan 100 mg tablet 100 mg PO DAILY Blood Pressure 04/09/24
polyvinyl alcohol-povidone (PF) 1.4 %-0.6 % eye drops in a dropperette (Refresh Classic (PF)) 1 drops BOTH EYES QIDPRN PRN dry eyes 04/09/24
Review of Systems
-
History Source: Patient
A 12 point ROS was completed and negative except as noted: Yes
Physical Exam
Vital Signs
Vital Signs
Temp Pulse Resp BP Pulse Ox
97.3 F 99 20 155/68 93
05/16/24 18:39 05/16/24 23:00 05/16/24 23:00 08/11/24 23:00 05/16/24 23:00
Physical Exam
General: Well Developed, Well Nourished, No Apparent Distress, Comfortable and Obese
HEENT: [place] Conjunctivae, Nose Appears Normal and Ears Appear Normal
Respiratory: Clear
Cardiac: S1/S2 and Regular Rhythm
GI: Soft, Non Tender and Non Distended
Musculoskeletal: No Clubbing, No Cyanosis and No Edema
Skin: Warm and Dry; No Rash
Neuro: Awake, Alert and Oriented
Psych: Calm
Laboratory Results
-
05/16/24 19:25
05/16/24 19:45
Laboratory Results
Lactic Acid 0.8 mmol/L (0.7-2.0) 05/16/24 19:45
Total Bilirubin 0.9 mg/dl (0.2-1.3) 05/16/24 19:45
AST 25 U/L (17-59) 05/16/24 19:45
ALT 13 U/L (0-50) 05/16/24 19:45
Alkaline Phosphatase 72 U/L (38-126) 05/16/24 19:45
Troponin I 0.043 ng/ml H* 05/16/24 19:45
Data Reviewed
-
Lab Data: Labs Reviewed by me
Impression/Plan
-
IMPRESSION:
73 man with recent chest pain and SOB, now pain free.
troponin 0.043
H/H 12.1/32.7 (at baseline level)
BUN/Creat 31/1.3 (at baseline)
pro greta low
CXR: Stable moderate elevation right hemidiaphragm. Lungs appear clear radiographically.
ECG: Atrial-sensed ventricular-paced rhythm
Head CT:
Moderate ventricular dilation is present, which appears slightly greater than the degree of sulcal dilation and atrophy.
The callosal angle appears normal. Findings are stable from previous examination.
Please correlate with any clinical signs or symptoms that would suggest normal pressure hydrocephalus.
No abnormal extra-axial collection is identified.
The visualized paranasal sinuses appear clear. The mastoid air cells appear clear.
IMPRESSION:
No evidence of acute intracranial abnormality.
PLAN:
1. Chest pain - now resolved, with elevated troponin
Telemetry
Cycle troponin
Aspirin
Cardiology consult in AM ([facility], Jair)
2. Diabetes - continue insulin
3. CHF - check echo in am
4. Home meds & PMH - continue home meds
Full code
VCD for DVTp
[2024-05-16 23:29] LABS: Troponin I 0.047 ng/ml
[2024-05-17] VITALS (10 sets, daily range): BP systolic 93–171; BP diastolic 49–91; PULSE 2; BMI 35.6
--- NOTE | 2024-05-17 02:10 | PTCARENOTE ---
ax3- no chest pain apaced- afebrile bp wit htn- repeat ekg and troponin done and sent to lab- chf packet given. pt is weak and can take a few steps with walker but mostly wheel chair bound- inc of bowel and bladder- attends on
--- NOTE | 2024-05-17 02:21 | PTCARENOTE ---
pt unable to verify home med list- said he will ask his sister to find it at his apt and bring it in
[2024-05-17 02:29] LABS: Troponin I 0.045 ng/ml
[2024-05-17 04:24] LABS: Hematocrit 30.1 % (39.0-52.0); Hemoglobin 10.6 g/dL (13.0-18.0); Mean Corp Hgb Conc. 35.2 g/dL (33.0-37.0); Mean Corpuscular Hgb 32.2 pg (27.0-31.0); Mean Corpuscular Volume 91.5 fL (80.0-94.0); Mean Platelet Volume 12.2 fL (7.4-10.4); Platelet Count 144 10^3/uL (130-400); Red Blood Cell Count 3.29 10^6/uL (4.70-6.10); Red Cell Dist. Width 14.2 % (11.5-14.5); White Blood Cell Count 8.9 10^3/uL (4.8-10.8)
[2024-05-17 04:41] LABS: Blood Urea Nitrogen 33 mg/dl (9-20); Calcium 8.9 mg/dl (8.4-10.2); Carbon Dioxide 29 mmol/L (22-30); Chloride 103 mmol/L (98-107); Estimated Creatinine Clearance 61 ml/min; Glucose 112 mg/dl (70-99); Potassium 3.5 mmol/L (3.5-5.1); Sodium 136 mmol/L (135-145); eGFR 52.41
[2024-05-17 04:51] LABS: Troponin I 0.049 ng/ml
[2024-05-17] MEDS: ADVAIR HFA 45/21 MCG INHALER 2 PUFF INH ×2 (07:33→20:19)
--- NOTE | 2024-05-17 08:34 | CON.CAR ---
Addendum entered and electronically signed by Kirk Serrano MD 05/18/24 07:48:
I saw and examined the patient.
The SENIOR WRITER's note was reviewed and I agree with the note.
Comment: 73-year-old male (known to Dr. Adam), with CAD, paroxysmal atrial fibrillation, SSS status post PPM (Medtronic), HFrEF with recovered EF, type 2 diabetes mellitus, CKD stage 3, gout, and EARL who presented to the emergency department with
chest pain. It is unclear etiology of CP, however, given increased weight and flat troponin likely nonischemic myocardial injury. We will diurese and see how he feels.
- Diuresis
Original Note:
Consultation
Consultation Request
Date/Time Consultation Requested: 05/17/2024 01:00
Date/Time Consultation Performed: 05/17/2024 08:30
Requesting Provider: Dr. Grubbs
Performing Provider: LUCRETIA Castro for Dr. Serrano
Reason for Consultation: Chest discomfort
Medical History
-
Chief Complaint: Chest pain
History of Present Illness:
Wisam Connolly is a 73-year-old male (known to Dr. Adam), with CAD, paroxysmal atrial fibrillation, SSS status post PPM (Medtronic), HFrEF with recovered EF, type 2 diabetes mellitus, CKD stage 3, gout, and EARL who presented to the emergency
department with chest pain. He was recently discharged from [facility]. His sister, Kyra, was assisting him back to bed from his wheelchair when he endorsed chest pain. He reported it as a squeezing sensation. Later in the afternoon, he was
very lethargic. He had associated diaphoresis, shortness of breath, nausea, and diarrhea. At the time of his arrival to the emergency department he had no chest pain and no shortness of breath. He was found to have an abnormal troponin.
Past Medical History
Past Medical History: Arrhythmias (Paroxysmal atrial fibrillation, SSS status post PPM), CAD, CHF, COPD, HTN, Hypercholesterolemia, IDDM, Renal Failure (Stage III) and Other (EARL)
Past Surgical History: Orthopedic and Tonsilectomy
Social History
Tobacco: Non-Smoker
Alcohol: None
Drug: None
Personal: Single
Living: With Family
Employment: Retired
Family History
Family History: Reviewed & Not Pertinent
Allergies / Home Medications
Allergy/AdvReac Type Severity Reaction Status Date / Time
No Known Allergies Allergy Verified 05/16/24 18:50
�Medication �Instructions �Recorded �Confirmed �Type
atorvastatin 10 mg tablet (Lipitor) 10 mg PO HS High cholesterol 09/04/22 04/09/24 History
escitalopram oxalate 20 mg tablet 20 mg PO DAILY Depression 09/04/22 04/09/24 History
(Lexapro)
fluticasone 100 mcg-salmeterol 50 1 inh inhalation R BID 09/05/22 04/09/24 History
mcg/dose blistr powdr for Lung/breathing issues
inhalation (Wixela Inhub)
apixaban 5 mg tablet (Eliquis) 5 mg PO BID Blood thinner #30 tabs 05/06/23 04/09/24 Rx
gabapentin 300 mg capsule 300 mg PO BID Pain 06/12/23 04/09/24 History
buspirone 10 mg tablet 10 mg PO BID Mental Health/Anxiety 11/27/23 04/09/24 History
pantoprazole 40 mg tablet,delayed 40 mg PO DAILY Gastrointestinal 11/27/23 04/09/24 History
release (Protonix) Issue
carvedilol 12.5 mg tablet 12.5 mg PO BID Blood pressure #10 01/30/24 04/09/24 Rx
tabs
furosemide 40 mg tablet 40 mg PO DAILY Fluid 01/30/24 04/09/24 Rx
retention/Swelling #0 tabs
hydralazine 50 mg tablet 50 mg PO TID Blood Pressure 04/09/24 04/09/24 History
insulin glargine 100 unit/mL (3 15 unit SC HS Diabetes 04/09/24 04/09/24 History
mL) subcutaneous pen (Lantus
Solostar U-100 Insulin)
insulin lispro 100 unit/mL 0 sliding scale dose SC AC Diabetes 04/09/24 04/09/24 History
subcutaneous solution
losartan 100 mg tablet 100 mg PO DAILY Blood Pressure 04/09/24 04/09/24 History
polyvinyl alcohol-povidone (PF) 1 drops BOTH EYES QIDPRN PRN dry 04/09/24 04/09/24 History
1.4 %-0.6 % eye drops in a eyes
dropperette (Refresh Classic (PF))
Review of Systems
-
History Source: Patient
All other systems: Negative unless noted
Constitutional: Weight Gain
EENT: No Symptoms
Respiratory: No Symptoms
Cardiac: No Symptoms
Abdomen/GI: No Symptoms
: No Symptoms
Musculoskeletal: Edema
Skin: No Symptoms
Neurological: No Symptoms
Endocrine: No Symptoms
Hematologic/Lymphatic: No Symptoms
Physical Exam
Vital Signs
Temp Pulse Resp BP Pulse Ox
98.3 F 78 16 171/80 94
05/17/24 07:00 05/17/24 07:35 05/17/24 07:00 05/17/24 07:00 05/17/24 07:35
Lab Results
05/17/24 04:05
05/17/24 04:05
Troponin I 0.049 ng/ml H* 05/17/24 04:05
Physical Exam
General: Well Developed, Well Nourished, No Apparent Distress and Comfortable
HEENT: Normocephalic, Anicteric and Moist Mucous Membranes
Respiratory: Clear and Non Labored Respirations
Cardiac: S1/S2, Regular Rhythm and Peripheral Edema
Breast: Deferred by me
GI: Soft, Non Tender, Non Distended and Normal Bowel Sounds
Rectal: Deferred by Provider
Genito-urinary: No Costovertebral Tender
Musculoskeletal: No Clubbing, No Cyanosis and No Edema
Skin: Warm and Dry
Neuro: AO x 3
Hematologic/Lymphatic: No Lymphadenopathy
Psych: Calm
Impression / Plan
-
BACKGROUND: 73M with CAD, paroxysmal atrial fibrillation, SSS status post PPM (Medtronic), HFrEF with recovered EF, type 2 diabetes mellitus, CKD stage 3, gout, and EARL who presented to the emergency department with chest pain.
Manager Multimedia: Dr. Adam
HFmrEF, acute on chronic
-He is his highest documented weight with LE edema
-Tubgrips
-Case Mgmt to moser SGLT2i
-Furosemide 40mg IV x 1 today and follow
-Daily weight, I/Os, and BMP
-Update TTE
Abnormal troponin,type unknown, perhaps in the setting of acute HF
-Chest pain free
-Troponins remain flat
CAD
-[facility] 2020: There is a 50% lesion in the ostium of a small D1. There is a 90% lesion in the ostium of D2. Both diagonals are sub 2 millimeter vessels.
-Continue medical management
Persistent atrial fibrillation
-No plans for rhythm control for now
-Oral Anticoagulation: Eliquis 5mg BID, denies missed doses and abnormal bleeding
-[id number]: score at least 6 (Heart failure, HTN, age 75 or more, Diabetes Mellitus, Vascular disease)
HTN
-BP elevated this morning, follow
CKD, Stage 3
Type II DM, Hgba1c improved, 6.0% last month
Anemia of chronic disease
SSS, S/p Medtronic PPM
Data Reviewed
-
EKG: Report Reviewed by me (Atrial sensed ventricular paced rhythm, rate 82)
Radiology: Report Reviewed by me (CXR: Stable moderate elevation right hemidiaphragm. Lungs appear clear radiographically.)
CT Scan: Report Reviewed by me (Head: No evidence of acute intracranial abnormality.)
Medical Tests (Nuc Med, Echo etc): Report Reviewed by me (Prior echocardiogram as above)
Labs: Labs Reviewed by me
Old Records: Reviewed
[2024-05-17] MEDS: LASIX 40 MG PO (08:50)
[2024-05-17] MEDS: LOW STRENGTH ASPIRIN 324 MG PO (08:50)
[2024-05-17] MEDS: NEURONTIN 300 MG PO ×2 (08:51→19:28)
[2024-05-17] MEDS: PROTONIX 40 MG PO (08:51)
[2024-05-17] MEDS: APRESOLINE 50 MG PO ×3 (08:51→23:26)
[2024-05-17] MEDS: COZAAR 100 MG PO (08:51)
[2024-05-17] MEDS: BUSPAR 10 MG PO ×2 (08:52→19:28)
[2024-05-17] MEDS: COREG 12.5 MG PO ×2 (08:53→19:31)
[2024-05-17] MEDS: ELIQUIS PO (08:53)
[2024-05-17] MEDS: NOVOLOG FLEXPEN SC (08:53)
[2024-05-17] MEDS: LEXAPRO 20 MG PO (08:53)
[2024-05-17] MEDS: REFRESH EYE DROPS (PF) 1 DROPS BOTH EYES ×2 (08:55→19:31)
--- NOTE | 2024-05-17 09:41 | VNURNOTE ---
Chart reviewed, patient current [facility], PT, OT. Will continue to follow hospital course.
--- NOTE | 2024-05-17 09:57 | W.PN.HOSP.TC ---
Today's Communication/Plan
-
see bold
Assessment / Plan
Assessment / Plan
HPI: 73 year old male that comes in by EMS with c/o chest pain. It was Stated that he was up in the wheelchair today and then he was in bed and started to have chest pain and a chest squeezing feeling. He Stated that he was sweating profusely, that
he felt SOB, nauseated and had diarrhea. He Denies any fever, chills, abd pain, vomiting, headache, dizziness, urinary burning. At the time of my interview, he had no chest pain or SOB.
#Acute on chronic heart failure with preserved ejection fraction
Appreciate cardiology input, treat with IV Lasix, trend creatinine, trend daily weights
Echo EF 60-65%
#Elevated troponin, in the setting of heart failure
Denies chest pain currently, continue to trend
#Coronary artery disease
Continue Eliquis, statin, Coreg
#Persistent atrial fibrillation
Continue Eliquis 5 mg twice a day, Coreg
#Benign essential hypertension
Continue hydralazine, losartan, Coreg
#Hyperlipidemia
Continue statin
#Type 2 diabetes
Continue Jardiance, insulin
#Obesity due to excess calories
Affects all aspects of care
DVT prophylaxis�Eliquis
Full code
Total time spent to see the patient on the floor, examine the patient, review data and lab results, discuss treatment plan with patient, nursing staff around 40 minutes.
Physical Exam
General: Morbidly obese, no acute distress
HEENT: Normocephalic, Atraumatic, EOMI, MMM
Respiratory: Diminished breath sounds at the bases
Cardiac: Normal S1/S2, Regular Rate and Rhythm
GI: Soft, Nontender, Nondistended, Normal Bowel Sounds
Extremities: No Clubbing, Cyanosis
Bilateral lower extremity edema noted
Neuro: Nonfocal/Grossly Intact
Psych: Calm, Cooperative
Derm: No Visible lesions
Anticipated Discharge: > 48 hours
Subjective/Interval History
-
Date of Service: May 17, 2024
Patient denies chest pain. He reports shortness of breath at rest and with activity. No fever, no vomiting, no coughing.
Objective Data
-
Labs:
Laboratory Results
05/17/24
04:05
WBC 8.9
Hgb 10.6 L
Hct 30.1 L
Plt Count 144 D
Sodium 136
Potassium 3.5
Chloride 103
Carbon Dioxide 29
BUN 33 H
Creatinine 1.4 H
Glucose 112 H
Calcium 8.9
Vital Signs:
Vital Signs
Temp Pulse Resp BP Pulse Ox
98.3 F 78 16 171/80 94
05/17/24 07:00 05/17/24 08:50 05/17/24 07:00 05/17/24 08:50 05/17/24 07:35
I&O
05/16/24 05/17/24 05/18/24
06:59 06:59 06:59
Intake Total 720 / 720
Balance 720 / 720
[2024-05-17 10:44] LABS: Glycohemoglobin (HgbA1c) 5.8 % (4.0-5.6)
[2024-05-17 11:42] LABS: Glucose - Point of Care 132 mg/dl (70-99)
[2024-05-17] MEDS: NOVOLOG FLEXPEN 1 UNITS SC ×2 (12:04→17:36)
--- NOTE | 2024-05-17 14:26 | PTCARENOTE ---
Pt called for nurse c/o feeling sob. Breathing is unlabored and he is speaking in full sentences. SPO2 93% room air. BP is 98/54.
--- NOTE | 2024-05-17 15:30 | CM ---
java manager reviewed patient's chart and met with patient and patient lives alone in a 2nd floor apartment at [facility], this is an elevator accessible building. Patient is independent with adl's and uses a walker with ambulation along
with w/c, patient states his sister does all his shopping, and assists him with errands. Kathy is current with [facility]. Patient has been skilled several times in past last facility was [facility]. Patient does not want to return to
skilled patient wants to return to home with [facility] when stable, patient is asking for list of PCP's which employment case manager has provided.
Pharmacy: [facility]
Plan; Home with [facility] when stable.
[2024-05-17 16:40] LABS: Glucose - Point of Care 224 mg/dl (70-99)
[2024-05-17 16:48] LABS: NT-proBNP 2120 pg/ml
[2024-05-17] MEDS: TYLENOL 650 MG PO (19:28)
[2024-05-17] MEDS: ELIQUIS 5 MG PO (19:28)
[2024-05-17] MEDS: TIGAN 200 MG IM (19:54)
[2024-05-17 20:10] LABS: Troponin I 0.034 ng/ml
[2024-05-17] MEDS: LASIX 20 MG IV (21:54)
[2024-05-17] MEDS: LIPITOR 10 MG PO (21:55)
[2024-05-17 22:01] LABS: Glucose - Point of Care 138 mg/dl (70-99)
[2024-05-17] MEDS: LANTUS 0.15 UNITS SC (22:23)
--- NOTE | 2024-05-17 22:51 | PTCARENOTE ---
summary of events- change of shift pt sob nauseas with chest pressure-htn- notified wood flour miller.. wood flour miller ordered ekg troponins -Tigan troponins negative- ekg unchanged- lasix ordered see dec. pt remains with chest pressure-but no longer sob. reported to wood flour miller
--- NOTE | 2024-05-17 23:33 | PTCARENOTE ---
placed on bipap- pt expressed feeling better after Lasix but remains with slight chest pressure
[2024-05-18] VITALS (10 sets, daily range): BP systolic 92–173; BP diastolic 43–83; PULSE 2–64; O2SAT 96; BMI 35.2
--- NOTE | 2024-05-18 05:31 | PTCARENOTE ---
pt sleeping in bed for the last few hours with bipap on - diuresed after lasix- multiple wet attends- arousable . no additional complaints
[2024-05-18 07:01] LABS: Blood Urea Nitrogen 35 mg/dl (9-20); Calcium 8.8 mg/dl (8.4-10.2); Carbon Dioxide 32 mmol/L (22-30); Chloride 102 mmol/L (98-107); Estimated Creatinine Clearance 56 ml/min; Glucose 110 mg/dl (70-99); Potassium 3.5 mmol/L (3.5-5.1); Sodium 138 mmol/L (135-145); eGFR 48.25
[2024-05-18 07:07] LABS: Glucose - Point of Care 117 mg/dl (70-99)
[2024-05-18] MEDS: ADVAIR HFA 45/21 MCG INHALER 2 PUFF INH ×2 (07:26→22:04)
[2024-05-18] MEDS: NOVOLOG FLEXPEN SC (08:48)
[2024-05-18] MEDS: ELIQUIS 5 MG PO ×2 (08:49→20:29)
[2024-05-18] MEDS: LEXAPRO 20 MG PO (08:50)
[2024-05-18] MEDS: BUSPAR 10 MG PO ×2 (08:50→20:28)
[2024-05-18] MEDS: NEURONTIN 300 MG PO ×2 (08:50→20:29)
[2024-05-18] MEDS: JARDIANCE 10 MG PO (08:50)
[2024-05-18] MEDS: COZAAR 100 MG PO (08:50)
[2024-05-18] MEDS: COREG 12.5 MG PO ×2 (08:50→20:54)
[2024-05-18] MEDS: APRESOLINE 50 MG PO ×3 (08:50→22:31)
[2024-05-18] MEDS: PROTONIX 40 MG PO (08:50)
--- NOTE | 2024-05-18 09:21 | W.PN.HOSP.TC ---
Today's Communication/Plan
-
see bold
Assessment / Plan
Assessment / Plan
HPI: 73 year old male that comes in by EMS with c/o chest pain. It was Stated that he was up in the wheelchair today and then he was in bed and started to have chest pain and a chest squeezing feeling. He Stated that he was sweating profusely, that
he felt SOB, nauseated and had diarrhea. He Denies any fever, chills, abd pain, vomiting, headache, dizziness, urinary burning. At the time of my interview, he had no chest pain or SOB.
#Acute on chronic heart failure with preserved ejection fraction
Echo EF 60-65%
Appreciate cardiology input, treat with IV Lasix, trend creatinine, trend daily weights
Compression stockings to the lower extremities
PT rec SNF
#Dysphagia
Consult SPL
#Sore throat
Check COVID
#Elevated troponin, in the setting of heart failure
Denies chest pain currently, continue to trend
#Coronary artery disease
Continue Eliquis, statin, Coreg
#Persistent atrial fibrillation
Continue Eliquis 5 mg twice a day, Coreg
#Benign essential hypertension
Continue hydralazine, losartan, Coreg
#Hyperlipidemia
Continue statin
#Type 2 diabetes
Continue Jardiance, insulin
#Obesity due to excess calories
Affects all aspects of care
DVT prophylaxis�Eliquis
Full code
Total time spent to see the patient on the floor, examine the patient, review data and lab results, discuss treatment plan with patient, nursing staff around 50 minutes.
Physical Exam
General: Morbidly obese, no acute distress
HEENT: Normocephalic, Atraumatic, EOMI, MMM
Respiratory: Diminished breath sounds at the bases
Cardiac: Normal S1/S2, Regular Rate and Rhythm
GI: Soft, Nontender, Nondistended, Normal Bowel Sounds
Extremities: No Clubbing, Cyanosis
Bilateral lower extremity edema noted
Neuro: Nonfocal/Grossly Intact
Psych: Calm, Cooperative
Anticipated Discharge: > 48 hours
Subjective/Interval History
-
Date of Service: May 18, 2024
Patient reports having an episode of feeling food was stuck in his throat this morning. He continues to be short of breath. No fever, no vomiting.
Objective Data
-
Labs:
Laboratory Results
05/18/24
06:13
Sodium 138
Potassium 3.5
Chloride 102
Carbon Dioxide 32 H
BUN 35 H
Creatinine 1.5 H
Glucose 110 H
Calcium 8.8
Vital Signs:
Vital Signs
Temp Pulse Resp BP Pulse Ox
98.0 F 61 18 173/74 96
05/18/24 07:08 05/18/24 07:30 05/18/24 07:30 05/18/24 07:08 05/18/24 07:30
I&O
05/17/24 05/18/24 05/19/24
06:59 06:59 06:59
Intake Total 720 / 720 600 / 600
Balance 720 / 720 600 / 600
[2024-05-18] MEDS: REFRESH EYE DROPS (PF) 1 DROPS BOTH EYES (09:54)
[2024-05-18 11:58] LABS: Glucose - Point of Care 215 mg/dl (70-99)
--- NOTE | 2024-05-18 12:27 | PTOTSP ---
SPEECH THERAPY SWALLOW EVALUATION:
Patient exhibits grossly functional oropharyngeal swallow at this time. Patient remains at risk for aspiration given report of fluctuating respiratory status and intermittent periods of shortness of breath. Reported history of globus sensation with
dry solids, though none indicated at this time. Recommend continue Regular texture solids, with patient to select soft/moist items and avoid hard/dry items, and thin liquids. Medications whole with liquid as best tolerated. Aspiration precautions:
Assist with set-up; Supervision with meals to monitor for signs of aspiration; Upright positioning; Small sips/bites; Slow rate of intake; Do not eat when short of breath; Take breaks for breathing; Alternate textures and intersperse liquids;
Monitor CXR and labs. D/c oral diet if any decline in mental or respiratory status. Could consider Outpatient VSE given occasional complaints of globus sensation with dry solids. ST to follow at the acute care level, assess diet tolerance and modify
as appropriate, determine indication for instrumental assessment of swallowing (VSE) at the acute care level, provide education regarding aspiration risks and precautions.
RECOMMEND:
1) Regular texture solids, with patient to select soft/moist items and avoid hard/dry items, and thin liquids
2) Medications whole with liquid as best tolerated
3) Aspiration precautions: Assist with set-up; Supervision with meals to monitor for signs of aspiration; Upright positioning; Small sips/bites; Slow rate of intake; Do not eat when short of breath; Take breaks for breathing; Alternate textures and
intersperse liquids; Monitor CXR and labs. D/c oral diet if any decline in mental or respiratory status
4) Could consider Outpatient VSE given occasional complaints of globus sensation with dry solids
5) ST to follow at the acute care level, determine indication for instrumental assessment of swallowing (VSE) at the acute care level
[2024-05-18 12:48] LABS: COVID-19 Antigen Negative (Negative)
[2024-05-18] MEDS: NOVOLOG FLEXPEN 1 UNITS SC ×2 (13:11→17:43)
--- NOTE | 2024-05-18 13:18 | W.PN.CD ---
Today's Communication / Plan
-
Continue diuresis
Add SGLT2-I if copay allows
Impression / Plan
-
Background: 73M with CAD, paroxysmal atrial fibrillation, SSS status post PPM (Medtronic), HFrEF with recovered EF, type 2 diabetes mellitus, CKD stage 3, gout, and EARL who presented to the emergency department with chest pain. Seal Mixing Operator:
Jair
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
- Weight down 1.5 kg
-He is his highest documented weight with LE edema
-Tubgrips
-Case Mgmt to moser SGLT2i
-Furosemide 40mg IV x 1 today and follow
-Daily weight, I/Os, and BMP
-Updated TTE 05/17/2024: LVEF 60-65%, mild cLVH, no signif vavle disease, right heart pressure could not be estimated
- Cath 07/2020: PCWP 23, RA 15, PA 60/30. Mild CAD
Abnormal troponin => Nonischemic myocardial injury with heart failure
CAD
-LHC 07/2020: 50% small D1. 90% small D2
-Continue medical management
Persistent atrial fibrillation
-No plans for rhythm control for now
-Oral Anticoagulation: Eliquis 5mg BID, denies missed doses and abnormal bleeding
-[id number]: score at least 6 (Heart failure, HTN, age 75 or more, Diabetes Mellitus, Vascular disease)
HTN
-BP elevated this morning, follow
CKD, Stage 3
Type II DM, Hgba1c improved, 6.0% last month
Anemia of chronic disease
Heart block, S/p Medtronic PPM
Subjective: Feels better
Physical Exam
Vital Signs/Labs
Vital Signs
Temp Pulse Resp BP Pulse Ox
98.1 F 62 16 92/43 99
05/18/24 11:53 05/18/24 11:53 05/18/24 11:53 05/18/24 11:53 05/18/24 11:53
05/17/24 05/18/24 05/19/24
06:59 06:59 06:59
Actual Weight 119.068 kg 117.526 kg
05/17/24 04:05
05/18/24 06:13
05/17/24 05/17/24
04:05 04:05
Moi-S-Oxexgesuvyy Pept 0 Cancelled
LAB Results
05/16/24 05/16/24 05/16/24
19:25 19:45 22:59
Troponin I Cancelled 0.043 H* 0.047 H*
05/17/24 05/17/24 05/17/24
01:46 04:05 07:04
Troponin I 0.045 H* 0.049 H* Cancelled
05/17/24
19:33
Troponin I 0.034
Physical Exam
Constitutional: No acute distress
EENT: Anicteric
Cardiovascular: Rhythm & rate is regular and Pedal edema is absent
Respiratory: Respiratory effort normal and Lungs clear to auscul.
GI: Soft and Distention absent
Neuro/Psych: Alert
Data Reviewed
-
Date of Service: May 18, 2024
--- NOTE | 2024-05-18 13:54 | CM ---
Chart reviewed and patient reports that he plans on returning to home when stable, back to his apartment at [facility], per patient he has [facility] and private care givers at home, patient requested a list of PCP's which renal case manager provided
and also a dentist. manager maritime reached out to [place] [phone].
manager maritime spoke with patient's sister, Kyra who assists with discharge, per patient's sister Kyra patient has transport with [facility] [phone] but transport company needs 3-54 days notice of transport.
Plan; Home with [facility] and private caregivers when stable, will await PT/OT evaluations.
[2024-05-18] MEDS: LASIX 40 MG IV (14:36)
[2024-05-18 16:42] LABS: Glucose - Point of Care 193 mg/dl (70-99)
[2024-05-18 22:26] LABS: Glucose - Point of Care 115 mg/dl (70-99)
[2024-05-18] MEDS: LIPITOR 10 MG PO (22:28)
[2024-05-18] MEDS: LANTUS 0.15 UNITS SC (22:33)
[2024-05-19] VITALS (7 sets, daily range): BP systolic 114–142; BP diastolic 48–79; PULSE 2–68; BMI 35.0
--- NOTE | 2024-05-19 06:40 | PTCARENOTE ---
At change of shift, pt reported 'chest pressure' that felt like 'bricks on my chest' which pt reports is the same 'chest pressure' he has felt since 'before coming into the hospital.' O2 88-89% on RA. Pt placed on O2 2L NC. O2 97% on 2L NC. Notified
LUCRETIA Goetz. No new orders at this time. Reassessed pt's 'chest pressure.' Pt talking on phone. Pt shows no signs of distress. Updated LUCRETIA Goetz. No new orders at this time. Throughout the night, pt reported 'slight chest pressure'
or 'chest discomfort.' Plan of care ongoing.
[2024-05-19] MEDS: ADVAIR HFA 45/21 MCG INHALER 2 PUFF INH ×2 (08:12→20:05)
--- NOTE | 2024-05-19 08:37 | W.PN.HOSP.TC ---
Today's Communication/Plan
-
see bold
Assessment / Plan
Assessment / Plan
HPI: 73 year old male that comes in by EMS with c/o chest pain. It was Stated that he was up in the wheelchair today and then he was in bed and started to have chest pain and a chest squeezing feeling. He Stated that he was sweating profusely, that
he felt SOB, nauseated and had diarrhea. He Denies any fever, chills, abd pain, vomiting, headache, dizziness, urinary burning. At the time of my interview, he had no chest pain or SOB.
#Acute on chronic heart failure with preserved ejection fraction
Echo EF 60-65%
Appreciate cardiology input, treat with IV Lasix as per cards, trend creatinine, trend daily weights
Compression stockings to the lower extremities
PT rec SNF, pt declines
#Dysphagia
Cleared by SPL for regular solids, thin liquids
Patient counseled to select moist/soft foods
#Sore throat
COVID-negative, ordered lozenges
#Elevated troponin, in the setting of heart failure
Denies chest pain currently, continue to trend
#Coronary artery disease
Continue Eliquis, statin, Coreg
#Persistent atrial fibrillation
Continue Eliquis 5 mg twice a day, Coreg
#Benign essential hypertension
Continue losartan, Coreg
Blood pressure drops when getting hydralazine, will change hydralazine to as needed
#Hyperlipidemia
Continue statin
#Type 2 diabetes
Continue Jardiance, insulin
#Obesity due to excess calories
Affects all aspects of care
DVT prophylaxis�Eliquis
Full code
Updated sister on phone 05/19
Total time spent to see the patient on the floor, examine the patient, review data and lab results, discuss treatment plan with patient, nursing staff around 51 minutes.
Physical Exam
General: Morbidly obese, no acute distress
HEENT: Normocephalic, Atraumatic, EOMI, MMM
Respiratory: Diminished breath sounds at the bases
Cardiac: Normal S1/S2, Regular Rate and Rhythm
GI: Soft, Nontender, Nondistended, Normal Bowel Sounds
Extremities: No Clubbing, Cyanosis
Bilateral lower extremity edema noted
Neuro: Nonfocal/Grossly Intact
Psych: Calm, Cooperative
Anticipated Discharge: > 48 hours
Subjective/Interval History
-
Date of Service: May 19, 2024
Patient continues to report shortness of breath, unchanged from admission. He still has a sore throat. No fever, no vomiting.
Objective Data
-
Labs:
Laboratory Results
05/19/24
06:00
Sodium Pending
Potassium Pending
Chloride Pending
Carbon Dioxide Pending
BUN Pending
Creatinine Pending
Glucose Pending
Calcium Pending
Vital Signs:
Vital Signs
Temp Pulse Resp BP Pulse Ox
98.2 F 55 16 114/51 97
05/19/24 03:31 05/19/24 08:13 05/19/24 08:13 05/19/24 03:31 05/19/24 08:13
I&O
05/18/24 05/19/24 05/20/24
06:59 06:59 06:59
Intake Total 600 / 600 1140 / 1140
Balance 600 / 600 1140 / 1140
[2024-05-19] MEDS: NEURONTIN 300 MG PO ×2 (09:01→20:19)
[2024-05-19] MEDS: COZAAR 100 MG PO (09:01)
[2024-05-19] MEDS: PROTONIX 40 MG PO (09:01)
[2024-05-19] MEDS: COREG 12.5 MG PO ×2 (09:02→20:32)
[2024-05-19] MEDS: BUSPAR 10 MG PO ×2 (09:02→20:19)
[2024-05-19] MEDS: LEXAPRO 20 MG PO (09:02)
[2024-05-19] MEDS: ELIQUIS 5 MG PO ×2 (09:02→20:19)
[2024-05-19] MEDS: JARDIANCE 10 MG PO (09:02)
[2024-05-19] MEDS: LASIX 40 MG IV (09:02)
[2024-05-19 09:05] LABS: Glucose - Point of Care 119 mg/dl (70-99)
[2024-05-19] MEDS: NOVOLOG FLEXPEN 1 UNITS SC ×2 (09:06→13:15)
[2024-05-19] MEDS: REFRESH EYE DROPS (PF) 1 DROPS BOTH EYES (09:11)
[2024-05-19] MEDS: APRESOLINE PO (09:18)
[2024-05-19 13:10] LABS: Glucose - Point of Care 203 mg/dl (70-99)
[2024-05-19] MEDS: ANESTHETIC LOZENGE 1 LOZENGE PO (13:15)
[2024-05-19 13:35] LABS: Blood Urea Nitrogen 39 mg/dl (9-20); Calcium 8.8 mg/dl (8.4-10.2); Carbon Dioxide 33 mmol/L (22-30); Chloride 98 mmol/L (98-107); Estimated Creatinine Clearance 53 ml/min; Glucose 182 mg/dl (70-99); Potassium 3.8 mmol/L (3.5-5.1); Sodium 136 mmol/L (135-145); eGFR 44.65
--- NOTE | 2024-05-19 15:09 | CM ---
Chart reviewed and rn case manager discussed with patient's sister skilled placement as recommended by physical therapy. Patient and patient's sister declined skilled placement. Plan is to home with [facility] and private caregivers, patient needs transport
from insurance
Per sister, Kyra, patient has transport with [place] [phone] but transport company needs 3-4 days notice to set up transport.
Plan; Home with [facility] and Private caregivers. closing manager provided patient with a list of PCP's and dentist in area as requested.
[2024-05-19 16:12] LABS: Glucose - Point of Care 117 mg/dl (70-99)
--- NOTE | 2024-05-19 16:43 | W.PN.CD ---
Today's Communication / Plan
-
Let's continue IV diuresis today and tomorrow and then likely move to po
Check cost of SGLT2-I
Impression / Plan
-
Background: 73M with CAD, paroxysmal atrial fibrillation, SSS status post PPM (Medtronic), HFrEF with recovered EF, type 2 diabetes mellitus, CKD stage 3, gout, and EARL who presented to the emergency department with chest pain. Any Commodity Sales Deliverer:
Jair
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
- Admit weight 120.8 kg. Now weight is 117.1 kg
- Case Mgmt to moser SGLT2i => I placed consult today ()
- Furosemide 40mg IV daily
- Daily weight, I/Os, and BMP
- Updated Echo 05/17/2024: LVEF 60-65%, mild cLVH, no signif vavle disease, right heart pressure could not be estimated
- Cath 07/2020: PCWP 23, RA 15, PA 60/30. Mild CAD
Abnormal troponin => Nonischemic myocardial injury with heart failure
CAD
-C 07/2020: 50% small D1. 90% small D2
-Continue medical management
Persistent atrial fibrillation
- No plans for rhythm control for now
- Oral Anticoagulation: Eliquis 5mg BID, denies missed doses and abnormal bleeding
- [id number]: score at least 6 (Heart failure, HTN, age 75 or more, Diabetes Mellitus, Vascular disease)
HTN
-BP elevated this morning, follow
CKD, Stage 3
Type II DM, Hgba1c improved, 6.0% last month
Anemia of chronic disease
Heart block, S/p Medtronic PPM
Subjective: Feels better
Physical Exam
Vital Signs/Labs
Vital Signs
Temp Pulse Resp BP Pulse Ox
98.2 F 68 18 128/65 94
05/19/24 14:52 05/19/24 14:52 05/19/24 14:52 05/19/24 14:52 05/19/24 14:52
05/18/24 05/19/24 05/20/24
06:59 06:59 06:59
Actual Weight 117.526 kg 117.1 kg
05/17/24 04:05
05/19/24 12:31
05/17/24 05/17/24
04:05 04:05
Tmo-D-Obfdfqqmaip Pept 2120 Cancelled
LAB Results
05/16/24 05/16/24 05/16/24
19:25 19:45 22:59
Troponin I Cancelled 0.043 H* 0.047 H*
05/17/24 05/17/24 05/17/24
01:46 04:05 07:04
Troponin I 0.045 H* 0.049 H* Cancelled
05/17/24
19:33
Troponin I 0.034
Physical Exam
Constitutional: No acute distress
Cardiovascular: Rhythm & rate is regular and Pedal edema is absent
Respiratory: Respiratory effort normal and Lungs clear to auscul.
GI: Soft and Distention absent
Neuro/Psych: Alert
Data Reviewed
-
Date of Service: May 19, 2024
[2024-05-19] MEDS: NOVOLOG FLEXPEN 2 UNITS SC (17:17)
[2024-05-19 20:52] LABS: Glucose - Point of Care 137 mg/dl (70-99)
[2024-05-19] MEDS: LANTUS 0.15 UNITS SC (22:25)
[2024-05-19] MEDS: LIPITOR 10 MG PO (22:25)
[2024-05-20] VITALS (9 sets, daily range): BP systolic 110–150; BP diastolic 49–71; PULSE 2–111; O2SAT 97; BMI 35.0
--- NOTE | 2024-05-20 07:46 | W.PN.CD ---
Today's Communication / Plan
-
labs
increase diuretic to IV BID daily
follow labs
Impression / Plan
-
Background: 73M with CAD, paroxysmal atrial fibrillation, SSS status post PPM (Medtronic), HFrEF with recovered EF, type 2 diabetes mellitus, CKD stage 3, gout, and EARL who presented to the emergency department with chest pain. Pediatrics Physician:
Jair
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
- Admit weight 120.8 kg. Now weight is 117.1 kg but no further decline or symptomatic improvement
- Case Mgmt to moser SGLT2i => I placed consult today ()
- Furosemide 40mg IV daily-->Increase to BID---he had been refusing labs, but aggreed today
- Daily weight, I/Os, and BMP
- Updated Echo 05/17/2024: LVEF 60-65%, mild cLVH, no signif vavle disease, right heart pressure could not be estimated
- Cath 07/2020: PCWP 23, RA 15, PA 60/30. Mild CAD
Abnormal troponin => Nonischemic myocardial injury with heart failure
-chronic,atypical constant chest pain (worse when sitting up, plueritic, constant)
-consider noninvasive evaluation when op
CAD
-LHC 07/2020: 50% small D1. 90% small D2
-Continue medical management
Persistent atrial fibrillation
- No plans for rhythm control for now
- Oral Anticoagulation: Eliquis 5mg BID, denies missed doses and abnormal bleeding
- [id number]: score at least 6 (Heart failure, HTN, age 75 or more, Diabetes Mellitus, Vascular disease)
HTN
-BP elevated this morning, follow
CKD, Stage 3
Type II DM, Hgba1c improved, 6.0% last month
Anemia of chronic disease
Heart block, S/p Medtronic PPM
Subjective: Feels no better than arrival, sob cp--(worse when sitting up, plueritic, constant), sputum production.l
Physical Exam
Vital Signs/Labs
Vital Signs
Temp Pulse Resp BP Pulse Ox
97.6 F 57 16 131/49 96
05/20/24 03:13 05/20/24 03:13 05/20/24 03:13 05/20/24 03:13 05/20/24 03:13
05/19/24 05/20/24 05/21/24
06:59 06:59 06:59
Actual Weight 117.1 kg 117.084 kg
05/17/24 04:05
05/17/24 05/17/24
04:05 04:05
Pas-Z-Rdnditvynel Pept 2120 Cancelled
LAB Results
05/17/24 05/17/24
07:04 19:33
Troponin I Cancelled 0.034
Physical Exam
Constitutional: No acute distress
Cardiovascular: Rhythm & rate is regular, JVD pressure is normal, Systolic murmur absent, Diastolic murmur absent and Pedal edema present (trace bl)
Respiratory: Respiratory effort normal, Lungs clear to auscul., Wheeze Absent, Crackles Absent and Rhonchi Absent
Neuro/Psych: AO x 3
Data Reviewed
-
Date of Service: May 20, 2024
EKG: Other (tele paced)
[2024-05-20] MEDS: ADVAIR HFA 45/21 MCG INHALER 2 PUFF INH ×2 (07:53→20:04)
[2024-05-20 08:04] LABS: Glucose - Point of Care 121 mg/dl (70-99)
[2024-05-20] MEDS: NOVOLOG FLEXPEN 2 UNITS SC ×3 (08:27→17:15)
[2024-05-20] MEDS: LASIX 40 MG IV ×2 (08:27→16:28)
[2024-05-20] MEDS: BUSPAR 10 MG PO ×2 (08:28→20:15)
[2024-05-20] MEDS: PROTONIX 40 MG PO (08:28)
[2024-05-20] MEDS: NEURONTIN 300 MG PO ×2 (08:28→20:15)
[2024-05-20] MEDS: ELIQUIS 5 MG PO ×2 (08:28→20:15)
[2024-05-20] MEDS: JARDIANCE 10 MG PO (08:28)
[2024-05-20] MEDS: COREG 12.5 MG PO ×2 (08:28→20:16)
[2024-05-20] MEDS: COZAAR 100 MG PO (08:28)
[2024-05-20] MEDS: LEXAPRO 20 MG PO (08:28)
--- NOTE | 2024-05-20 08:58 | W.PN.HOSP.TC ---
Today's Communication/Plan
-
see bold
Assessment / Plan
Assessment / Plan
HPI: 73 year old male that comes in by EMS with c/o chest pain. It was Stated that he was up in the wheelchair today and then he was in bed and started to have chest pain and a chest squeezing feeling. He Stated that he was sweating profusely, that
he felt SOB, nauseated and had diarrhea. He Denies any fever, chills, abd pain, vomiting, headache, dizziness, urinary burning. At the time of my interview, he had no chest pain or SOB.
#Acute on chronic heart failure with preserved ejection fraction
Echo EF 60-65%
Appreciate cardiology input, Lasix increased to 40 mg IV twice daily as per cardiology
Trend creatinine, trend daily weights
Compression stockings to the lower extremities
PT rec SNF, pt declines
#Dysphagia
Cleared by SPL for regular solids, thin liquids
Patient counseled to select moist/soft foods
#Sore throat
COVID-negative, ordered lozenges
#Elevated troponin, in the setting of heart failure
Denies chest pain currently, continue to trend
#Coronary artery disease
Continue Eliquis, statin, Coreg
#Persistent atrial fibrillation
Continue Eliquis 5 mg twice a day, Coreg
#Benign essential hypertension
Continue losartan, Coreg
Blood pressure drops when getting hydralazine, changed hydralazine to as needed
#Hyperlipidemia
Continue statin
#Type 2 diabetes
Continue Jardiance, insulin
#Obesity due to excess calories
Affects all aspects of care
DVT prophylaxis�Eliquis
Full code
Updated sister on phone 05/19
Total time spent to see the patient on the floor, examine the patient, review data and lab results, discuss treatment plan with patient, nursing staff around 40 minutes.
Physical Exam
General: Morbidly obese, no acute distress
HEENT: Normocephalic, Atraumatic, EOMI, MMM
Respiratory: Diminished breath sounds at the bases
Cardiac: Normal S1/S2, Regular Rate and Rhythm
GI: Soft, Nontender, Nondistended, Normal Bowel Sounds
Extremities: No Clubbing, Cyanosis
Bilateral lower extremity edema noted
Neuro: Nonfocal/Grossly Intact
Psych: Calm, Cooperative
Anticipated Discharge: > 48 hours
Subjective/Interval History
-
Date of Service: May 20, 2024
Patient continues to feel short of breath, minimally improved from prior. He also complains of mucus. No fever, no vomiting.
Objective Data
-
Labs:
Laboratory Results
05/20/24
06:00
Sodium Pending
Potassium Pending
Chloride Pending
Carbon Dioxide Pending
BUN Pending
Creatinine Pending
Glucose Pending
Calcium Pending
Vital Signs:
Vital Signs
Temp Pulse Resp BP Pulse Ox
97.6 F 55 16 150/71 97
05/20/24 03:13 05/20/24 07:58 05/20/24 07:58 05/20/24 08:28 05/20/24 07:58
I&O
05/19/24 05/20/24 05/21/24
06:59 06:59 06:59
Intake Total 1140 / 1140 240 / 240
Balance 1140 / 1140 240 / 240
[2024-05-20 10:30] LABS: Blood Urea Nitrogen 39 mg/dl (9-20); Calcium 8.8 mg/dl (8.4-10.2); Carbon Dioxide 32 mmol/L (22-30); Chloride 100 mmol/L (98-107); Estimated Creatinine Clearance 53 ml/min; Glucose 130 mg/dl (70-99); Potassium 3.8 mmol/L (3.5-5.1); Sodium 137 mmol/L (135-145); eGFR 44.65
[2024-05-20 12:07] LABS: Glucose - Point of Care 192 mg/dl (70-99)
[2024-05-20] MEDS: MUCINEX 600 MG PO ×2 (12:09→20:15)
--- NOTE | 2024-05-20 15:01 | CM ---
Patient seen today.
Increased diuretic to IV BID.
CM consult completed for cost of Farxiga & Jardiance.
Farxiga 10mg & Jardiance 10mg fully covered under patient's benefits-TT to Dr. Keith Adam.
Notified patient of no cost.
PLAN: Discharge when medically stable with [facility], private caregivers.
Per sister, Kyra, patient has transport with [facility] [phone] but transport company needs 3-4 days notice to set up transport.
[2024-05-20 17:02] LABS: Glucose - Point of Care 104 mg/dl (70-99)
[2024-05-20 21:11] LABS: Glucose - Point of Care 160 mg/dl (70-99)
[2024-05-20] MEDS: LANTUS 0.15 UNITS SC (21:36)
[2024-05-20] MEDS: LIPITOR 10 MG PO (21:36)
[2024-05-21] VITALS (7 sets, daily range): BP systolic 96–120; BP diastolic 45–78; PULSE 2; BMI 34.8
[2024-05-21] MEDS: ADVAIR HFA 45/21 MCG INHALER 2 PUFF INH (07:30)
[2024-05-21 08:11] LABS: Glucose - Point of Care 105 mg/dl (70-99)
--- NOTE | 2024-05-21 08:53 | W.PN.HOSP.TC ---
Today's Communication/Plan
-
Increase Mucinex
Capella valve
Consult pulmonology
Assessment / Plan
Assessment / Plan
HPI: 73 year old male that comes in by EMS with c/o chest pain. It was Stated that he was up in the wheelchair today and then he was in bed and started to have chest pain and a chest squeezing feeling. He Stated that he was sweating profusely, that
he felt SOB, nauseated and had diarrhea. He Denies any fever, chills, abd pain, vomiting, headache, dizziness, urinary burning. At the time of my interview, he had no chest pain or SOB.
#Acute on chronic heart failure with preserved ejection fraction
Echo EF 60-65%
Appreciate cardiology input, Lasix increased to 40 mg IV twice daily as per cardiology
Trend creatinine, trend daily weights
Compression stockings to the lower extremities
PT rec SNF, pt declines
#Persistent shortness of breath
#Productive cough
Increase Mucinex to 1200 twice daily, Acapella valve
Check sputum culture, consult pulmonology
#Dysphagia
Cleared by SPL for regular solids, thin liquids, VSE neg
Patient counseled to select moist/soft foods
#Sore throat
COVID-negative, ordered lozenges
#Elevated troponin, in the setting of heart failure
Denies chest pain currently, continue to trend
#Coronary artery disease
Continue Eliquis, statin, Coreg
#Persistent atrial fibrillation
Continue Eliquis 5 mg twice a day, Coreg
#Benign essential hypertension
Continue losartan, Coreg
Blood pressure drops when getting hydralazine, changed hydralazine to as needed
#Hyperlipidemia
Continue statin
#Type 2 diabetes
Continue Jardiance, insulin
#Obesity due to excess calories
Affects all aspects of care
DVT prophylaxis�Eliquis
Full code
Updated sister on phone 05/21
Total time spent to see the patient on the floor, examine the patient, review data and lab results, discuss treatment plan with patient, nursing staff around 50 minutes.
Physical Exam
General: Morbidly obese, no acute distress
HEENT: Normocephalic, Atraumatic, EOMI, MMM
Respiratory: Diminished breath sounds at the bases
Cardiac: Normal S1/S2, Regular Rate and Rhythm
GI: Soft, Nontender, Nondistended, Normal Bowel Sounds
Extremities: No Clubbing, Cyanosis
Bilateral lower extremity edema noted
Neuro: Nonfocal/Grossly Intact
Psych: Calm, Cooperative
Anticipated Discharge: > 48 hours
Subjective/Interval History
-
Date of Service: May 21, 2024
Patient complains that he is having a lot of mucus, and his breathing is worse today. No fever, no vomiting.
Objective Data
-
Labs:
Laboratory Results
05/21/24
06:00
Sodium Pending
Potassium Pending
Chloride Pending
Carbon Dioxide Pending
BUN Pending
Creatinine Pending
Glucose Pending
Calcium Pending
Vital Signs:
Vital Signs
Temp Pulse Resp BP Pulse Ox
97.3 F 60 14 119/78 96
05/21/24 03:20 05/21/24 07:34 05/21/24 07:34 05/21/24 03:20 05/21/24 03:20
I&O
05/20/24 05/21/24 05/22/24
06:59 06:59 06:59
Intake Total 240 / 240 1320 / 1320
Balance 240 / 240 1320 / 1320
[2024-05-21] MEDS: REFRESH EYE DROPS (PF) 1 DROPS BOTH EYES (09:34)
[2024-05-21] MEDS: MUCINEX 600 MG PO (09:36)
[2024-05-21] MEDS: COREG 12.5 MG PO ×2 (09:36→20:27)
[2024-05-21] MEDS: ELIQUIS 5 MG PO ×2 (09:36→20:28)
[2024-05-21] MEDS: BUSPAR 10 MG PO ×2 (09:36→20:27)
[2024-05-21] MEDS: PROTONIX 40 MG PO (09:36)
[2024-05-21] MEDS: NEURONTIN 300 MG PO ×2 (09:36→20:28)
[2024-05-21] MEDS: NOVOLOG FLEXPEN 2 UNITS SC ×3 (09:36→17:08)
[2024-05-21] MEDS: JARDIANCE 10 MG PO (09:37)
[2024-05-21] MEDS: LASIX 40 MG IV ×2 (09:37→17:05)
[2024-05-21] MEDS: LEXAPRO 20 MG PO (09:37)
[2024-05-21] MEDS: COZAAR 100 MG PO (09:37)
[2024-05-21] MEDS: TYLENOL 650 MG PO (09:40)
[2024-05-21 09:56] LABS: Blood Urea Nitrogen 47 mg/dl (9-20); Calcium 8.8 mg/dl (8.4-10.2); Carbon Dioxide 32 mmol/L (22-30); Chloride 99 mmol/L (98-107); Estimated Creatinine Clearance 53 ml/min; Glucose 110 mg/dl (70-99); Magnesium 1.8 mg/dl (1.6-2.3); Phosphorus 3.6 mg/dl (2.5-4.5); Sodium 136 mmol/L (135-145); eGFR 44.65
--- NOTE | 2024-05-21 11:00 | PTOTSP ---
Speech Language Pathology
VIDEOFLUOROSCOPIC SWALLOWING EXAMINATION (VSE) completed. Overall, pt with functional oropharyngeal swallow. Occasionally transient penetration noted, which fully cleared. No aspiration noted. Of note, coughing noted during study in absence of
aspiration.
Recommend:
(1) Continue regular solids/thin liquids
(2) General aspiration precautions
(3) Meds as tolerated
(4) If symptoms persist, can consider OP GI consult
(5) FISH EGG PACKER to sign off. Please reconsult as indicated.
--- NOTE | 2024-05-21 11:29 | W.PN.CD ---
Today's Communication / Plan
-
Consider pulmonary eval
Agree with pBNP check but with climbing BUN/Cr may not be accurate
Continue BID Lasix 60 bid for a bit longer but watch BUN/Cr
Impression / Plan
-
Background: 73M with CAD, paroxysmal atrial fibrillation, SSS status post PPM (Medtronic), HFrEF with recovered EF, type 2 diabetes mellitus, CKD stage 3, gout, and EARL who presented to the emergency department with chest pain. Caddy:
Jair
Dyspnea
- given lack of change in symptoms with 4 kg diuresis I agree with checking CXR
- Consider pulmonary evaluation
- Elevated left hemidiaphragm noted, he is on Eliquis at AFib dose so Pulm Embolus seems less likely
HFmrEF => HFimprovedEF, acute on chronic
- Admit weight 120.8 kg. Now weight is 116.26 but little to no real symptomatic improvement (diuretic increased on 05/20/2024)
- SGLT2i are no cost, he is now on Jardiance
- Furosemide now at 60 IV BID
- Daily weight, I/Os, and BMP
- Updated Echo 05/17/2024: LVEF 60-65%, mild cLVH, no signif vavle disease, right heart pressure could not be estimated
- Cath 07/2020: PCWP 23, RA 15, PA 60/30. Mild CAD
Abnormal troponin => Nonischemic myocardial injury with heart failure
-chronic,atypical constant chest pain (worse when sitting up, plueritic, constant)
-consider noninvasive evaluation when outpatient
CAD
-LHC 07/2020: 50% small D1. 90% small D2
-Continue medical management
Persistent atrial fibrillation
- No plans for rhythm control for now
- Oral Anticoagulation: Eliquis 5mg BID, denies missed doses and abnormal bleeding
- [id number]: score at least 6 (Heart failure, HTN, age 75 or more, Diabetes Mellitus, Vascular disease)
HTN
-BP elevated this morning, follow
CKD, Stage 3
Type II DM, Hgba1c improved, 6.0% last month
Anemia of chronic disease
Heart block, S/p Medtronic PPM
Subjective: Feels no better than arrival, sob cp--(worse when sitting up, plueritic, constant), sputum production.l
Physical Exam
Vital Signs/Labs
Vital Signs
Temp Pulse Resp BP Pulse Ox
97.9 F 60 14 120/58 98
05/21/24 07:00 05/21/24 07:34 05/21/24 07:34 05/21/24 07:00 05/21/24 10:31
05/20/24 05/21/24 05/22/24
06:59 06:59 06:59
Actual Weight 117.084 kg 116.261 kg
05/17/24 04:05
05/21/24 09:13
Magnesium 1.8 mg/dl (1.6-2.3) 05/21/24 09:13
05/17/24 05/17/24
04:05 04:05
Geg-B-Jsujxacmvxx Pept 2119 Cancelled
Physical Exam
Constitutional: No acute distress
EENT: Anicteric
Cardiovascular: Rhythm & rate is regular and Pedal edema is absent
Respiratory: Respiratory effort normal and Lungs clear to auscul.
GI: Soft and Distention absent
Neuro/Psych: Alert
Data Reviewed
-
Date of Service: May 21, 2024
[2024-05-21 12:09] LABS: Glucose - Point of Care 213 mg/dl (70-99)
[2024-05-21 12:37] LABS: NT-proBNP 107 pg/ml
--- NOTE | 2024-05-21 15:27 | CON.PUL ---
Consultation
Consultation Request
Date/Time Consultation Requested: 05/21
Date/Time Consultation Performed: 05/21
Reason for Consultation: COPD
Medical History
-
History of Present Illness:
History obtained from the patient, reviewing both inpatient and outpatient records. Patient is a 73-year-old male with complex medical history, recently discharged 04/15/2024 for renal insufficiency. He returns to the ED with chest pain on
05/16/2024. This was associated with diaphoresis, shortness of breath, nausea. Patient was also lethargic per family. Upon arrival to [facility], afebrile, pulse 72, breathing at 20, blood pressure 113/45, 93%. Patient had elevated
troponin. EKG with paced rhythm. Patient admitted, echocardiogram obtained which was normal and cardiology consulted. Hospital course reviewed. Patient was diuresed with Lasix, aspiration was ruled out. COVID study negative. Due to persistent
shortness of breath, we are asked to comment on his pulmonary process 05/21/2024.
Patient states he has shortness of breath with minimal activity at home. He also feels that his gait is unstable, lightheaded. He gets occasional chest discomfort, denies pleurisy, cough, hemoptysis. He does not have oxygen therapy at home. He
is unaware of any weight changes, admits to increased lower extremity swelling.
.
PMH: History of pneumonia, COPD/asthma, sleep apnea obesity hypoventilation on nocturnal BiPAP, diabetes, complete heart block with pacemaker, atrial fibrillation, CKD, depression/anxiety, history of retroperitoneal hematoma with hemorrhagic shock
June 2023, right adrenal mass, history of multiple falls, hypertension/hyperlipidemia, history of heart failure. History of spinal stimulator, history of laminectomy, hip fracture repair, tonsillectomy
Past Medical History
Past Medical History: None (See above)
Past Surgical History: None (See above)
Social History
Tobacco: Non-smoker
Alcohol: None
Drug: None
Personal: Single
Living: Alone
Employment: Retired
Family History
Family History: Other (Mother with coronary disease, father with hypertension, both . Negative for lung disease. No children. 1 sister healthy)
Allergies / Home Medications
Allergies
Allergy/AdvReac Type Severity Reaction Status Date / Time
No Known Allergies Allergy Verified 05/16/24 18:50
Home Medications
�Medication �Instructions �Recorded �Confirmed �Last Taken �Type
atorvastatin 10 mg tablet (Lipitor) 10 mg PO HS High cholesterol 09/04/22 04/09/24 04/08/24 22:00 History
escitalopram oxalate 20 mg tablet 20 mg PO DAILY Depression 09/04/22 04/09/24 04/09/24 08:00 History
(Lexapro)
fluticasone 100 mcg-salmeterol 50 1 inh inhalation R BID 09/05/22 04/09/24 01/21/24 History
mcg/dose blistr powdr for Lung/breathing issues
inhalation (Wixela Inhub)
apixaban 5 mg tablet (Eliquis) 5 mg PO BID Blood thinner #30 tabs 05/06/23 04/09/24 04/09/24 08:00 Rx
gabapentin 300 mg capsule 300 mg PO BID Pain 06/12/23 04/09/24 04/09/24 08:00 History
buspirone 10 mg tablet 10 mg PO BID Mental Health/Anxiety 11/27/23 04/09/24 04/09/24 08:00 History
pantoprazole 40 mg tablet,delayed 40 mg PO DAILY Gastrointestinal 11/27/23 04/09/24 04/09/24 08:00 History
release (Protonix) Issue
carvedilol 12.5 mg tablet 12.5 mg PO BID Blood pressure #10 01/30/24 04/09/24 04/09/24 08:00 Rx
tabs
furosemide 40 mg tablet 40 mg PO DAILY Fluid 01/30/24 04/09/24 04/09/24 08:00 Rx
retention/Swelling #0 tabs
hydralazine 50 mg tablet 50 mg PO TID Blood Pressure 04/09/24 04/09/24 04/09/24 14:00 History
insulin glargine 100 unit/mL (3 15 unit SC HS Diabetes 04/09/24 04/09/24 Unknown History
mL) subcutaneous pen (Lantus
Solostar U-100 Insulin)
insulin lispro 100 unit/mL 0 sliding scale dose SC AC Diabetes 04/09/24 04/09/24 Unknown History
subcutaneous solution
losartan 100 mg tablet 100 mg PO DAILY Blood Pressure 04/09/24 04/09/24 04/09/24 08:00 History
polyvinyl alcohol-povidone (PF) 1 drops BOTH EYES QIDPRN PRN dry 04/09/24 04/09/24 Unknown History
1.4 %-0.6 % eye drops in a eyes
dropperette (Refresh Classic (PF))
Review of Systems
-
All other systems: Negative unless noted
Vitals / Labs / Diagnostic Testing
Vital Signs
Temp Pulse Resp BP Pulse Ox
99.2 F 58 20 103/48 95
05/21/24 15:00 05/21/24 15:00 05/21/24 15:00 05/21/24 15:00 05/21/24 15:00
Lab Data
05/17/24 04:05
05/21/24 09:13
Diagnostic Testing:
Physical Exam
-
HEENT: Normocephalic, Anicteric and Other (Large neck)
Cardiovascular: S1/S2, Regular Rhythm, Murmur (n), Rub (n) and Peripheral Edema (tr)
Respiratory: Wheeze (n), Rales (Decreased right base, mild crackles right midlung), Rhonchi (n), Non-Labored Respirations and Other (No wheezing)
GI: Soft, Non Distended (Morbidly obese) and Non Tender
Neurology: Awake, Alert and No Motor Deficits (Able to sit up without assistance)
Skin: Good Color and Other (No clubbing, no cyanosis or rash)
General: Comfortable (Speaking comfortably)
Assessment
-
73-year-old male with complex medical history, sleep apnea obesity hypoventilation on nocturnal BiPAP, history of atrial fibrillation, heart failure, bilateral pneumonia November 2023, presents with worsening shortness of breath. Thought to be in
heart failure, diuresed aggressively since hospital stay, weight down 4 kg. Patient with persistent shortness of breath. We are asked to comment on pulmonary process 05/21/2024
Acute hypoxic respiratory insufficiency
Admission saturation 94% on room air
Suspected congestive heart failure
Diastolic dysfunction, normal EF
Elevated proBNP, now improved
Acute renal insufficiency, creatinine 1.6
Likely in the setting of diuresis, admission creatinine 1.3
Anemia
Elevated right hemidiaphragm
Appears to be persistent since 2019, per my review
Recent bilateral pneumonia November 2023
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
COPD/asthma
chronic allergic conjunctivitis
EARL on BiPAP
CKD
Depression/Anxiety disorder
History of retroperitoneal hematoma c/b hemorrhagic shock (06/2023)
Right adrenal mass stable compared to June 2023
Recurrent falls/ambulatory dysfunction
Chronic A-fib on Eliquis
Hypertension/hyperlipidemia
DM type II
Third-degree heart block s/p PPM
Chronic constipation
Cholelithiasis
Spinal stimulator, history of laminectomy
Plan/recommendations
At this time, patient with complex medical history.
I suspect his symptoms are multifactorial
Salient features include persistent subjective dyspnea despite adequate diuresis, chronically elevated right hemidiaphragm, recent bilateral pneumonia November.
Differential is broad
Low suspicion for thromboembolic disease given chronic anticoagulation
Cannot rule out underlying mass, given appearance of prior CT chest in November
Moving forward
Check lower extremity Dopplers
Check bedside spirometry
Will eventually require CT chest to confirm resolution of bilateral nodular/masslike pneumonia from November
Will eventually require SNIFF test to assess diaphragmatic function on the right
There is no wheezing on exam therefore no indication for steroids or aggressive nebulized therapy at this time
Recent echocardiogram with normal biventricular function, normal pressure
The above was reviewed along with the patient and all questions answered. We will follow
[2024-05-21] MEDS: VENTOLIN NEBULES 2.5 MG INH (16:24)
[2024-05-21 16:57] LABS: Glucose - Point of Care 111 mg/dl (70-99)
[2024-05-21] MEDS: MUCINEX 1200 MG PO (20:28)
[2024-05-21] MEDS: LIPITOR 10 MG PO (20:29)
[2024-05-21] MEDS: ADVAIR HFA 45/21 MCG INHALER INH (21:18)
[2024-05-21 22:20] LABS: Glucose - Point of Care 172 mg/dl (70-99)
[2024-05-21] MEDS: LANTUS 0.15 UNITS SC (22:24)
[2024-05-21] MEDS: ANESTHETIC LOZENGE 1 LOZENGE PO (22:30)
[2024-05-22] VITALS (10 sets, daily range): BP systolic 107–143; BP diastolic 50–81; PULSE 2–81; O2SAT 94; BMI 34.8
[2024-05-22] MEDS: BUSPAR 10 MG PO ×2 (07:41→20:50)
[2024-05-22] MEDS: NEURONTIN 300 MG PO ×2 (07:41→20:51)
[2024-05-22] MEDS: PROTONIX 40 MG PO (07:41)
[2024-05-22] MEDS: JARDIANCE 10 MG PO (07:42)
[2024-05-22] MEDS: COZAAR 100 MG PO (07:42)
[2024-05-22] MEDS: MUCINEX 1200 MG PO ×2 (07:42→20:50)
[2024-05-22] MEDS: COREG 12.5 MG PO ×2 (07:42→20:50)
[2024-05-22] MEDS: ELIQUIS 5 MG PO ×2 (07:42→20:50)
[2024-05-22] MEDS: LEXAPRO 20 MG PO (07:43)
[2024-05-22] MEDS: LASIX 40 MG IV (07:43)
[2024-05-22 07:45] LABS: Glucose - Point of Care 129 mg/dl (70-99)
[2024-05-22] MEDS: HYCODAN SYRUP 5 ML PO ×2 (07:54→12:33)
[2024-05-22] MEDS: NOVOLOG FLEXPEN 2 UNITS SC ×3 (07:58→17:48)
[2024-05-22] MEDS: ADVAIR HFA 45/21 MCG INHALER 2 PUFF INH ×2 (08:25→20:17)
--- NOTE | 2024-05-22 11:57 | W.PN.PUL3 ---
Today's Communication / Plan
-
RLD due to obesity, sedentary lifestyle
Add IS, encouraged OOB
PT/OT, patient has been refusing
I reviewed his results with him and answered all questions
Home O2 eval
Assessment
-
73-year-old male with complex medical history, sleep apnea obesity hypoventilation on nocturnal BiPAP, history of atrial fibrillation, heart failure, bilateral pneumonia November 2023, presents with worsening shortness of breath. Thought to be in
heart failure, diuresed aggressively since hospital stay, weight down 4 kg. Patient with persistent shortness of breath. We are asked to comment on pulmonary process 05/21/2024
Acute hypoxic respiratory insufficiency
Admission saturation 94% on room air
Suspected congestive heart failure
Diastolic dysfunction, normal EF
Elevated proBNP, now improved
Acute renal insufficiency, creatinine 1.6
Likely in the setting of diuresis, admission creatinine 1.3
Anemia
Elevated right hemidiaphragm, chronic since 2019
Recent bilateral pneumonia November 2023
SOB, multifactorial
Restrictive lung disease likely related to body habitus
Obesity BMI 34
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
COPD/asthma
Chronic allergic conjunctivitis
EARL on BiPAP
CKD
Depression/Anxiety disorder
History of retroperitoneal hematoma c/b hemorrhagic shock (06/2023)
Right adrenal mass stable compared to June 2023
Recurrent falls/ambulatory dysfunction
Chronic A-fib on Eliquis
Hypertension/hyperlipidemia
DM type II
Third-degree heart block s/p PPM
Chronic constipation
Cholelithiasis
Spinal stimulator, history of laminectomy
Plan/recommendations
At this time, patient with complex medical history.
I suspect his SOB multifactorial
Salient features include persistent subjective dyspnea despite adequate diuresis, chronically elevated right hemidiaphragm, recent bilateral pneumonia November.
Spirometry showing severe restriction
BMI 34
Suspect RLD due to obesity, sedentary lifestyle, deconditioning with chronic elevated RHD
I reviewed this with pateint, has been refusing to get OOB/work with PT
Imaging showing low lung volumes but no acute findings
Lower extremity Dopplers-neg
There is no wheezing on exam therefore no indication for steroids or aggressive nebulized therapy at this time
Continue nebs/inhalers
Repeat PFT as OP
Recent echocardiogram with normal biventricular function, normal pressure
ProBNP neg, procal neg
The above was reviewed along with the patient and all questions answered
Home O2 eval
Diagnostic Data
Chest X-Ray: 05/21/24- Low lung volumes. No active pulmonary process.
CT Scan: CHEST 05/22/24- No CT evidence for an acute cardiopulmonary process. Low lung volumes with scattered mild bilateral subsegmental atelectasis. Moderate elevation of the right hemidiaphragm.
LE duplex 05/21/24- No evidence of deep venous thrombosis bilaterally.
Echo: 05/17/24- LV size and function with no regional wall motion abnormality. LVEF is approximately 60 to 65% by Villalpando's method of discs. Mild concentric LVH. Normal right ventricular size and function. No significant valvular disease. Compared
to prior from November 28, 2023, overall LV function is normal 60-65% previously low normal at approximately 50%.
[place] 05/21/24- FEV1 1.0L 31%, FVC 1.37L 32%, ratio 73. Post FEV1 1.02L 32% no BD response
Reports and relevant images were personally reviewed.
Subjective Data
-
Date of Service:
Date of Service: May 22, 2024
Chief Complaint: Pulmonary Follow Up
Subjective:
no new events ON
remains on 2L NC
still SOB, rarely gets OOB
Objective Data
Data Reviewed
Vital Signs / I&O / Oxygen:
Vital Signs
Temp Pulse Resp BP Pulse Ox
97.7 F 59 18 126/61 94
05/22/24 11:23 05/22/24 11:23 05/22/24 11:23 05/22/24 11:23 05/22/24 11:23
Intake and Output
05/21/24 05/22/24 05/23/24
06:59 06:59 06:59
Intake Total 1320 / 1320 1320 / 1320
Balance 1320 / 1320 1320 / 1320
SaO2 94
Nasal Cannula flow liters per 3
minute
Physical Exam
General: Comfortable and Other (NAD, obese)
HEENT: Normocephalic, Anicteric and Moist Mucous Membranes
Cardiovascular: S1-S2, Regular Rhythm and Peripheral Edema (trace)
Respiratory: Rhonchi and Non-Labored Respirations
GI: Soft, Non Distended and Non Tender
Neurology: Awake, Alert, Oriented, AO x 3 and No Motor Deficits
Skin: Warm, Dry and Good Color
--- NOTE | 2024-05-22 12:19 | W.PN.CD ---
Today's Communication / Plan
-
Home lasix tomorrow
Likely R/LHC on Friday for ongoing breathing and chest heaviness
Impression / Plan
-
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
Dyspnea
- given lack of change in symptoms with 4 kg diuresis I agree with checking CXR
- Consider pulmonary evaluation
- Elevated left hemidiaphragm noted, he is on Eliquis at AFib dose so Pulm Embolus seems less likely
HFmrEF => HFimprovedEF, acute on chronic
Is not clear that his heart failure is contributing to his shortness of breath and chest heaviness. His BNP is now normal which would indicate heart failure has improved. However, given his obesity it is difficult to assess his accurate volume
status. I discussed possible right and left heart cath.
- Admit weight 120.8 kg. Now weight is 116.26 but little to no real symptomatic improvement (diuretic increased on 05/20/2024)
- SGLT2i are no cost, he is now on Jardiance
- Switch to lasix daily, BNP is now normal
- possible R/LHC Friday if ongoing symptoms
- Daily weight, I/Os, and BMP
- Updated Echo 05/17/2024: LVEF 60-65%, mild cLVH, no signif vavle disease, right heart pressure could not be estimated
- Cath 07/2020: PCWP 23, RA 15, PA 60/30. Mild CAD
Abnormal troponin => Nonischemic myocardial injury with heart failure
-chronic,atypical constant chest pain (worse when sitting up, plueritic, constant)
-consider noninvasive evaluation when outpatient
CAD
-LHC 07/2020: 50% small D1. 90% small D2
-Continue medical management
Persistent atrial fibrillation
- No plans for rhythm control for now
- Oral Anticoagulation: Eliquis 5mg BID, denies missed doses and abnormal bleeding
- [id number]: score at least 6 (Heart failure, HTN, age 75 or more, Diabetes Mellitus, Vascular disease)
HTN
-BP elevated this morning, follow
CKD, Stage 3
Type II DM, Hgba1c improved, 6.0% last month
Anemia of chronic disease
Heart block, S/p Medtronic PPM
Subjective: Continues with sputum production and SOB and on/off chest heaviness
Physical Exam
Vital Signs/Labs
Vital Signs
Temp Pulse Resp BP Pulse Ox
97.7 F 59 18 126/61 94
05/22/24 11:23 05/22/24 11:23 05/22/24 11:23 05/22/24 11:23 05/22/24 11:23
05/21/24 05/22/24 05/23/24
06:59 06:59 06:59
Actual Weight 256 lb 5 oz 256 lb 3 oz
Magnesium 1.8 mg/dl (1.6-2.3) 05/21/24 09:13
05/17/24 05/17/24 05/21/24
04:05 04:05 09:13
Czz-R-Fmvwcpyftca Pept 0 Cancelled 107
Physical Exam
Constitutional: No acute distress
Cardiovascular: Rhythm/rate is irregular
Respiratory: Respiratory effort normal and Lungs clear to auscul.
GI: Soft
Neuro/Psych: AO x 3
Data Reviewed
-
Date of Service: May 22, 2024
EKG: Tracing Personally Visualized and interpreted (af)
Echo: Report Reviewed by me
Labs: Labs Reviewed by me
[2024-05-22 12:26] LABS: % Basophils 0.8 % (0-2); % Eosinophils 2.5 % (0-6); % Immature Granulocytes 0.8 % (0-0.5); % Lymphocytes 22.1 % (20.5-51.1); % Monocytes 11.2 % (1.7-9.3); % Neutrophils 62.5 % (42.2-75.2); Absolute Basophils 0.1 10^3/uL (0-0.2); Absolute Eosinophils 0.1 10^3/uL (0-0.7); Absolute Immature Granulocytes 0.1 10^3/uL (0-0.05); Absolute Lymphocytes 1.3 10^3/uL (1.2-3.4); Absolute Monocytes 0.7 10^3/uL (0.1-0.6); Absolute Neutrophils 3.7 10^3/uL (1.4-6.5); Hematocrit 30.6 % (39.0-52.0); Hemoglobin 10.5 g/dL (13.0-18.0); Mean Corp Hgb Conc. 34.3 g/dL (33.0-37.0); Mean Corpuscular Volume 90.4 fL (80.0-94.0); Mean Platelet Volume 12.7 fL (7.4-10.4); Nucleated Red Blood Cells % 0 % (-); Platelet Count 129 10^3/uL (130-400); Red Blood Cell Count 3.35 10^6/uL (4.70-6.10); Red Cell Dist. Width 14.3 % (11.5-14.5)
[2024-05-22 12:26] LABS: Glucose - Point of Care 180 mg/dl (70-99)
--- NOTE | 2024-05-22 12:56 | CM ---
Patient seen bedside.
Continue with oxygen 3 liters.
PT/OT continues to recommend skilled rehab.
Patient declines skilled rehab, agreeable to return home with private care givers and [facility].
CT chest, possible cath Friday.
PLAN: Discharge when medically stable with [facility], private caregivers.
Per sister, Kyra, patient has transport with [place] [phone] but transport company needs 3-4 days notice to set up transport.
--- NOTE | 2024-05-22 13:11 | W.PN.HOSP.TC ---
Today's Communication/Plan
-
see bold
Assessment / Plan
Assessment / Plan
HPI: 73 year old male that comes in by EMS with c/o chest pain. It was Stated that he was up in the wheelchair today and then he was in bed and started to have chest pain and a chest squeezing feeling. He Stated that he was sweating profusely, that
he felt SOB, nauseated and had diarrhea. He Denies any fever, chills, abd pain, vomiting, headache, dizziness, urinary burning. At the time of my interview, he had no chest pain or SOB.
#Persistent shortness of breath
#Productive cough
Increased Mucinex to 1200 twice daily, Acapella valve
Chest CT negative, shows low lung with atelectasis and elevation of the right hemidiaphragm
Appreciate pulmonology input, suspect restrictive lung disease
Recommend ambulation, weight loss
#Acute on chronic heart failure with preserved ejection fraction
#Chest heaviness
05/17/24 Echo EF 60-65%, 07/2020 cath PCWP 23, RA 15, PA 60/30. Mild CAD
Appreciate cardiology input, status post Lasix 40 mg IV twice daily, changed to home Lasix dose 40 mg p.o. daily
Cardiology recommending right and left heart cath on Friday if patient continues to have symptoms
Trend creatinine, trend daily weights
Compression stockings to the lower extremities
PT rec SNF, pt declines
#Dysphagia
Cleared by SPL for regular solids, thin liquids, VSE neg
Patient counseled to select moist/soft foods
#Sore throat
COVID-negative, ordered lozenges
#Elevated troponin, in the setting of heart failure
Denies chest pain currently, continue to trend
#Coronary artery disease
Continue Eliquis, statin, Coreg
#Persistent atrial fibrillation
Continue Eliquis 5 mg twice a day, Coreg
#Benign essential hypertension
Continue losartan, Coreg
Blood pressure drops when getting hydralazine, changed hydralazine to as needed
#Hyperlipidemia
Continue statin
#Type 2 diabetes
Continue Jardiance, insulin
#Obesity due to excess calories
Affects all aspects of care
DVT prophylaxis�Eliquis
Full code
Updated sister on phone 05/22
Total time spent to see the patient on the floor, examine the patient, review data and lab results, discuss treatment plan with patient, nursing staff around 55 minutes.
Physical Exam
General: Morbidly obese, no acute distress
HEENT: Normocephalic, Atraumatic, EOMI, MMM
Respiratory: Diminished breath sounds at the bases
Cardiac: Normal S1/S2, Regular Rate and Rhythm
GI: Soft, Nontender, Nondistended, Normal Bowel Sounds
Extremities: No Clubbing, Cyanosis
Bilateral lower extremity edema noted
Neuro: Nonfocal/Grossly Intact
Psych: Calm, Cooperative
Anticipated Discharge: > 48 hours
Subjective/Interval History
-
Date of Service: May 22, 2024
Patient reports continued shortness of breath and chest heaviness. He also reports hard stools, had a bowel movement yesterday. No fever, no vomiting.
Objective Data
-
Labs:
Laboratory Results
05/22/24
06:00
WBC Pending
Hgb Pending
Hct Pending
Plt Count Pending
Sodium Pending
Potassium Pending
Chloride Pending
Carbon Dioxide Pending
BUN Pending
Creatinine Pending
Glucose Pending
Calcium Pending
Vital Signs:
Vital Signs
Temp Pulse Resp BP Pulse Ox
98.2 F 62 16 119/81 93
05/22/24 03:00 05/22/24 03:00 05/22/24 03:00 05/22/24 03:00 05/22/24 03:00
I&O
05/21/24 05/22/24 05/23/24
06:59 06:59 06:59
Intake Total 1320 / 1320 1320 / 1320
Balance 1320 / 1320 1320 / 1320
[2024-05-22] MEDS: MIRALAX 17 GRAMS PO (16:02)
[2024-05-22 17:48] LABS: Glucose - Point of Care 106 mg/dl (70-99)
[2024-05-22] MEDS: LIPITOR 10 MG PO (20:51)
[2024-05-22 21:02] LABS: Blood Urea Nitrogen 47 mg/dl (9-20); Carbon Dioxide 30 mmol/L (22-30); Chloride 96 mmol/L (98-107); Estimated Creatinine Clearance 52 ml/min; Glucose 149 mg/dl (70-99); Potassium 4.3 mmol/L (3.5-5.1); Sodium 135 mmol/L (135-145); eGFR 44.65
[2024-05-22 21:14] LABS: Procalcitonin 0.06 ng/ml (0.0-0.25)
[2024-05-22 21:27] LABS: Glucose - Point of Care 168 mg/dl (70-99)
[2024-05-22] MEDS: LANTUS 0.15 UNITS SC (22:09)
[2024-05-22] MEDS: ANESTHETIC LOZENGE 1 LOZENGE PO (22:14)
[2024-05-23] VITALS (7 sets, daily range): BP systolic 92–142; BP diastolic 47–68; PULSE 2; BMI 34.8
[2024-05-23] MEDS: PROTONIX 40 MG PO (07:01)
[2024-05-23] MEDS: BUSPAR 10 MG PO ×2 (07:01→19:57)
[2024-05-23] MEDS: ELIQUIS 5 MG PO ×2 (07:01→19:57)
[2024-05-23] MEDS: MUCINEX 1200 MG PO ×2 (07:01→19:57)
[2024-05-23] MEDS: LASIX 40 MG PO (07:01)
[2024-05-23] MEDS: COZAAR 100 MG PO (07:01)
[2024-05-23] MEDS: NEURONTIN 300 MG PO ×2 (07:01→19:57)
[2024-05-23] MEDS: HYCODAN SYRUP 5 ML PO ×2 (07:01→12:15)
[2024-05-23] MEDS: JARDIANCE 10 MG PO (07:02)
[2024-05-23] MEDS: COREG 12.5 MG PO ×2 (07:03→19:57)
[2024-05-23 07:49] LABS: Glucose - Point of Care 125 mg/dl (70-99)
[2024-05-23] MEDS: ADVAIR HFA 45/21 MCG INHALER 2 PUFF INH ×2 (07:54→20:18)
[2024-05-23] MEDS: NOVOLOG FLEXPEN 2 UNITS SC ×2 (08:19→12:15)
[2024-05-23] MEDS: MIRALAX 17 GRAMS PO (08:20)
[2024-05-23] MEDS: LEXAPRO 20 MG PO (08:20)
--- NOTE | 2024-05-23 08:26 | W.PN.HOSP.TC ---
Today's Communication/Plan
-
see bold
Assessment / Plan
Assessment / Plan
HPI: 73 year old male that comes in by EMS with c/o chest pain. It was Stated that he was up in the wheelchair today and then he was in bed and started to have chest pain and a chest squeezing feeling. He Stated that he was sweating profusely, that
he felt SOB, nauseated and had diarrhea. He Denies any fever, chills, abd pain, vomiting, headache, dizziness, urinary burning. At the time of my interview, he had no chest pain or SOB.
#Persistent shortness of breath
#Restrictive lung disease
Multifactorial, due to to restrictive lung disease, deconditioning, obesity
Chest CT negative, shows low lung with atelectasis and elevation of the right hemidiaphragm
Appreciate pulmonology input, recommend PT, incentive spirometry, weight loss
These recommendations were conveyed to patient and his sister, they report understanding
#Acute on chronic heart failure with preserved ejection fraction
#Chest heaviness
05/17/24 Echo EF 60-65%, 07/2020 cath PCWP 23, RA 15, PA 60/30. Mild CAD
Appreciate cardiology input, status post Lasix 40 mg IV twice daily, changed to home Lasix dose 40 mg p.o. daily
Cardiology recommending right and left heart cath on Friday if patient continues to have symptoms
Trend creatinine, trend daily weights
Compression stockings to the lower extremities
#Elevated troponin, in the setting of heart failure
Cardiology suspects nonischemic myocardial injury
#Sore throat
#Productive cough
COVID-negative, ordered lozenges
Increased Mucinex to 1200 twice daily, Acapella valve
#Coronary artery disease
Continue Eliquis, statin, Coreg
#Persistent atrial fibrillation
Continue Eliquis 5 mg twice a day, Coreg
#Benign essential hypertension
Continue losartan, Coreg
Blood pressure drops when getting hydralazine, changed hydralazine to as needed
#Dysphagia
Cleared by SPL for regular solids, thin liquids, VSE neg
Patient counseled to select moist/soft foods
#Constipation
Started MiraLAX
#Hyperlipidemia
Continue statin
#Type 2 diabetes
Continue Jardiance, insulin
#Obesity due to excess calories
Affects all aspects of care
DVT prophylaxis�Eliquis
Full code
Dispo - PT rec SNF, pt declines. Wishes to go home with home care
Updated sister on phone 05/22
Total time spent to see the patient on the floor, examine the patient, review data and lab results, discuss treatment plan with patient, nursing staff around 50 minutes.
Physical Exam
General: Morbidly obese, no acute distress
HEENT: Normocephalic, Atraumatic, EOMI, MMM
Respiratory: Diminished breath sounds at the bases
Cardiac: Normal S1/S2, Regular Rate and Rhythm
GI: Soft, Nontender, Nondistended, Normal Bowel Sounds
Extremities: No Clubbing, Cyanosis
Bilateral lower extremity edema noted
Neuro: Nonfocal/Grossly Intact
Psych: Calm, Cooperative
Anticipated Discharge: 24 - 48 hours
Subjective/Interval History
-
Date of Service: May 22, 2024
Patient reports his shortness of breath is the same, unchanged. Denies chest heaviness. No fever, no vomiting.
Objective Data
-
Labs:
Laboratory Results
05/22/24 05/22/24
12:05 12:22
WBC 6.0
Hgb 10.5 L
Hct 30.6 L
Plt Count 129 L
Sodium Cancelled Pending
Potassium Cancelled Pending
Chloride Cancelled Pending
Carbon Dioxide Cancelled Pending
BUN Cancelled Pending
Creatinine Cancelled Pending
Glucose Cancelled Pending
Calcium Cancelled Pending
Vital Signs:
Vital Signs
Temp Pulse Resp BP Pulse Ox
97.7 F 59 18 126/61 94
05/22/24 11:23 05/22/24 11:23 05/22/24 11:23 05/22/24 11:23 05/22/24 11:23
I&O
05/21/24 05/22/24 05/23/24
06:59 06:59 06:59
Intake Total 1320 / 1320 1320 / 1320
Balance 1320 / 1320 1320 / 1320
--- NOTE | 2024-05-23 10:44 | W.PN.CD ---
Today's Communication / Plan
-
NPO after midnight R/[facility] tomorrow
Impression / Plan
-
Background: 73M with CAD, paroxysmal atrial fibrillation, SSS status post PPM (Medtronic), HFrEF with recovered EF, type 2 diabetes mellitus, CKD stage 3, gout, and EARL who presented to the emergency department with chest pain. 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
Jair
Dyspnea
- given lack of change in symptoms with 4 kg diuresis I agree with checking CXR
- pulm consulted
- Elevated left hemidiaphragm noted, he is on Eliquis at AFib dose so Pulm Embolus seems less likely
HFmrEF => HFimprovedEF, acute on chronic
Is not clear that his heart failure is contributing to his shortness of breath and chest heaviness. His BNP is now normal which would indicate heart failure has improved. However, given his obesity it is difficult to assess his accurate volume
status. I discussed possible right and left heart cath.
- Admit weight 120.8 kg. Now weight is 116.26 but little to no real symptomatic improvement (diuretic increased on 05/20/2024)
- SGLT2i are no cost, he is now on Jardiance
- Switch to lasix daily, BNP is now normal
- R/[facility] Friday
- Daily weight, I/Os, and BMP
- Updated Echo 05/17/2024: LVEF 60-65%, mild cLVH, no signif vavle disease, right heart pressure could not be estimated
- Cath 07/2020: PCWP 23, RA 15, PA 60/30. Mild CAD
Abnormal troponin => Nonischemic myocardial injury with heart failure
-chronic,atypical constant chest pain (worse when sitting up, plueritic, constant)
-consider noninvasive evaluation when outpatient
CAD
-[facility] 07/2020: 50% small D1. 90% small D2
-Continue medical management
Persistent atrial fibrillation
- No plans for rhythm control for now
- Oral Anticoagulation: Eliquis 5mg BID, denies missed doses and abnormal bleeding
- [id number]: score at least 6 (Heart failure, HTN, age 75 or more, Diabetes Mellitus, Vascular disease)
HTN
-BP elevated this morning, follow
CKD, Stage 3
Type II DM, Hgba1c improved, 6.0% last month
Anemia of chronic disease
Heart block, S/p Medtronic PPM
Subjective: No difference in symptoms discussed RHC/LHC tomorrow
Physical Exam
Vital Signs/Labs
Vital Signs
Temp Pulse Resp BP Pulse Ox
99.9 F 63 16 95/59 96
05/23/24 07:57 05/23/24 07:57 05/23/24 07:57 05/23/24 07:57 05/23/24 08:00
05/22/24 05/23/24 05/24/24
06:59 06:59 06:59
Actual Weight 256 lb 3 oz 256 lb 5 oz
05/22/24 12:05
Magnesium 1.8 mg/dl (1.6-2.3) 05/21/24 09:13
05/17/24 05/17/24 05/21/24
04:05 04:05 09:13
Uxk-Z-Fozbttyzljg Pept 2120 Cancelled 107
Physical Exam
Constitutional: No acute distress
Cardiovascular: Rhythm & rate is regular (paced)
Respiratory: Respiratory effort normal and Lungs clear to auscul.
GI: Soft
Neuro/Psych: AO x 3
Data Reviewed
-
Date of Service: May 23, 2024
EKG: Tracing Personally Visualized and interpreted (paced)
Echo: Report Reviewed by me
Labs: Labs Reviewed by me
[2024-05-23] MEDS: REFRESH EYE DROPS (PF) 1 DROPS BOTH EYES (10:49)
--- NOTE | 2024-05-23 11:39 | W.PN.PUL3 ---
Today's Communication / Plan
-
Home O2 eval showing no need for O2 set up, O2 darryn 90%
Encouraged further OOB, PT eval
Cardiac cath planning in AM
Assessment
-
73-year-old male with complex medical history, sleep apnea obesity hypoventilation on nocturnal BiPAP, history of atrial fibrillation, heart failure, bilateral pneumonia November 2023, presents with worsening shortness of breath. Thought to be in
heart failure, diuresed aggressively since hospital stay, weight down 4 kg. Patient with persistent shortness of breath. We are asked to comment on pulmonary process 05/21/2024
Acute hypoxic respiratory insufficiency
Admission saturation 94% on room air
Suspected congestive heart failure
Diastolic dysfunction, normal EF
Elevated proBNP, now improved
Acute renal insufficiency, creatinine 1.6
Likely in the setting of diuresis, admission creatinine 1.3
Anemia
Elevated right hemidiaphragm, chronic since 2019
Recent bilateral pneumonia November 2023
SOB, multifactorial
Restrictive lung disease likely related to body habitus
Obesity BMI 34
Chronic conditions RN ACLS
COPD/asthma
Chronic allergic conjunctivitis
EARL on BiPAP
CKD
Depression/Anxiety disorder
History of retroperitoneal hematoma c/b hemorrhagic shock (06/2023)
Right adrenal mass stable compared to June 2023
Recurrent falls/ambulatory dysfunction
Chronic A-fib on Eliquis
Hypertension/hyperlipidemia
DM type II
Third-degree heart block s/p PPM
Chronic constipation
Cholelithiasis
Spinal stimulator, history of laminectomy
Plan/recommendations
At this time, patient with complex medical history.
I suspect his SOB multifactorial
Salient features include persistent subjective dyspnea despite adequate diuresis, chronically elevated right hemidiaphragm, recent bilateral pneumonia November.
Spirometry showing severe restriction
BMI 34
Suspect RLD due to obesity, sedentary lifestyle, deconditioning with chronic elevated RHD
I reviewed this with pateint, has been refusing to get OOB/work with PT
Did well last 24 hours, tried to get OOB with PT
Home O2 eval showed--92% on RA, 90% on ambulation, total distance was 25 feet
Does not require O2
I encouraged him to continue getting OOB/ambulating everyday
Imaging showing low lung volumes but no acute findings
Lower extremity Dopplers-neg
There is no wheezing on exam therefore no indication for steroids or aggressive nebulized therapy at this time
Continue nebs/inhalers
Repeat PFT as OP
Recent echocardiogram with normal biventricular function, normal pressure
ProBNP neg, procal neg
Plan for cath tomorrow
The above was reviewed along with the patient and all questions answered
Diagnostic Data
Chest X-Ray: 05/21/24- Low lung volumes. No active pulmonary process.
CT Scan: CHEST 05/22/24- No CT evidence for an acute cardiopulmonary process. Low lung volumes with scattered mild bilateral subsegmental atelectasis. Moderate elevation of the right hemidiaphragm.
LE duplex 05/21/24- No evidence of deep venous thrombosis bilaterally.
Echo: 05/17/24- LV size and function with no regional wall motion abnormality. LVEF is approximately 60 to 65% by Villalpando's method of discs. Mild concentric LVH. Normal right ventricular size and function. No significant valvular disease. Compared
to prior from November 28, 2023, overall LV function is normal 60-65% previously low normal at approximately 50%.
[place] 05/21/24- FEV1 1.0L 31%, FVC 1.37L 32%, ratio 73. Post FEV1 1.02L 32% no BD response
Reports and relevant images were personally reviewed.
Subjective Data
-
Date of Service:
Date of Service: May 23, 2024
Chief Complaint: Pulmonary Follow Up
Subjective:
No further events ON, remains on O2
SOB ongoing, but better
Objective Data
Data Reviewed
Vital Signs / I&O / Oxygen:
Vital Signs
Temp Pulse Resp BP Pulse Ox
99.2 F 60 18 100/56 94
05/23/24 11:35 05/23/24 11:35 05/23/24 11:35 05/23/24 11:35 05/23/24 11:35
Intake and Output
05/22/24 05/23/24 05/24/24
06:59 06:59 06:59
Intake Total 1320 / 1320 1040 / 1040
Balance 1320 / 1320 1040 / 1040
SaO2 94
Nasal Cannula flow liters per 2
minute
Physical Exam
General: Comfortable and Other (NAD, obese)
HEENT: Normocephalic, Anicteric and Moist Mucous Membranes
Cardiovascular: S1-S2, Regular Rhythm and Peripheral Edema (trace)
Respiratory: Rhonchi and Non-Labored Respirations
GI: Soft, Non Distended and Non Tender
Neurology: Awake, Alert, Oriented, AO x 3 and No Motor Deficits
Skin: Warm, Dry and Good Color
Labs/Micro/Reports
Lab Data
05/22/24 12:05
[2024-05-23 12:06] LABS: Glucose - Point of Care 169 mg/dl (70-99)
[2024-05-23] MEDS: TYLENOL 650 MG PO ×2 (13:56→19:58)
[2024-05-23] MEDS: NOVOLOG FLEXPEN SC (15:59)
[2024-05-23 17:47] LABS: Glucose - Point of Care 148 mg/dl (70-99)
[2024-05-23 21:09] LABS: Glucose - Point of Care 154 mg/dl (70-99)
[2024-05-23] MEDS: LANTUS 0.15 UNITS SC (21:44)
[2024-05-23] MEDS: LIPITOR 10 MG PO (21:44)
[2024-05-24] VITALS (9 sets, daily range): BP systolic 107–147; BP diastolic 54–82; PULSE 2–71; BMI 35.2
--- NOTE | 2024-05-24 07:39 | W.PN.CD ---
Today's Communication / Plan
-
right and left heart cath today
Impression / Plan
-
Background: 73M with CAD, paroxysmal atrial fibrillation on Eliquis, SSS status post PPM (Medtronic), HFrEF with recovered EF, type 2 diabetes mellitus, CKD stage 3, gout, and EARL who presented to the emergency department with chest pain and
hypoxia, now with persistent symptoms despite diuresis. Protocol Manager: Dr. Adam
Dyspnea
- given lack of change in symptoms with 4 kg diuresis I agree with checking CXR
- pulm consulted - recommendation appreciated
- Elevated left hemidiaphragm noted, he is on Eliquis at AFib dose so Pulm Embolus seems less likely
HFmrEF => HFimprovedEF, acute on chronic
Is not clear that his heart failure is contributing to his shortness of breath and chest heaviness. His BNP is now normal which would indicate heart failure has improved. However, given his obesity it is difficult to assess his accurate volume
status. Will perform right and left heart catheterization to evaluate filling pressures and evaluate progressive CAD as possible contributor to symptoms.
- Admit weight 120.8 kg. Now weight is 116.26 but little to no real symptomatic improvement (diuretic increased on 05/20/2024)
- SGLT2i are no cost, he is now on Jardiance
- continue lasix daily, BNP is now normal
- R/C Friday; continue NPO and hold eliquis
- Daily weight, I/Os, and BMP
- Updated Echo 05/17/2024: LVEF 60-65%, mild cLVH, no significant valve disease, right heart pressure could not be estimated
- Cath 07/2020: PCWP 23, RA 15, PA 60/30. Mild CAD
CAD
Abnormal troponin, likely Type II MD (nonischemic myocardial injury in setting of acute on chronic diastolic heart failure)
-chronic,atypical constant chest pain (worse when sitting up, plueritic, constant)
-given persistent symptoms will evalute with cath today
-[facility] 07/2020: 50% small D1. 90% small D2
-Continue medical management
Persistent atrial fibrillation
- No plans for rhythm control for now
- Oral Anticoagulation: Eliquis 5mg BID, hodling now will resume day after cath
- [id number]: score at least 6 (Heart failure, HTN, age 75 or more, Diabetes Mellitus, Vascular disease)
HTN
-continue GDMT
CKD, Stage 3
-1.6 up from 1.3 at baseline
-plan for use of minimal dye during coronary angiography today
Type II DM, Hgba1c improved, 6.0% last month
Anemia of chronic disease
Heart block, S/p Medtronic PPM
Subjective: No difference in symptoms
Physical Exam
Vital Signs/Labs
Vital Signs
Temp Pulse Resp BP Pulse Ox
36.4 C 52 18 130/54 94
05/24/24 03:00 05/24/24 03:00 05/24/24 03:00 05/24/24 03:00 05/24/24 03:00
05/23/24 05/24/24 05/25/24
06:59 06:59 06:59
Actual Weight 116.261 kg 117.48 kg
05/22/24 12:05
05/23/24 06:00
Magnesium 1.8 mg/dl (1.6-2.3) 05/21/24 09:13
05/17/24 05/17/24 05/21/24
04:05 04:05 09:13
Kuo-K-Oijlszgsgte Pept 2120 Cancelled 107
Physical Exam
Constitutional: No acute distress and Comfortable
Cardiovascular: Rhythm & rate is regular, Pedal edema is absent, Systolic murmur absent, Diastolic murmur absent and Other (JVD unable to be assessed due to habitus)
Respiratory: Wheeze Absent, Crackles Absent, Rhonchi Absent and Other (decreased lung sounds at bases)
Neuro/Psych: Alert, Oriented and AO x 3
Data Reviewed
-
Date of Service: May 24, 2024
Medical Decision Making: Reviewed Test Results
EKG: Tracing Personally Visualized and interpreted
Echo: Tracing Personally Visualized and interpreted
X-Ray/CT/US/MRI/NUC/PET: Image Personally Visualized and interpreted
Labs: Labs Reviewed by me
[2024-05-24 07:45] LABS: Glucose - Point of Care 133 mg/dl (70-99)
[2024-05-24] MEDS: ADVAIR HFA 45/21 MCG INHALER 2 PUFF INH ×2 (08:24→19:23)
[2024-05-24] MEDS: MIRALAX 17 GRAMS PO (08:25)
[2024-05-24] MEDS: LEXAPRO 20 MG PO (08:26)
[2024-05-24] MEDS: NEURONTIN 300 MG PO ×2 (08:26→20:18)
[2024-05-24] MEDS: MUCINEX 1200 MG PO ×2 (08:26→20:17)
[2024-05-24] MEDS: COREG 12.5 MG PO ×2 (08:26→20:20)
[2024-05-24] MEDS: COZAAR 100 MG PO (08:26)
[2024-05-24] MEDS: JARDIANCE 10 MG PO (08:26)
[2024-05-24] MEDS: PROTONIX 40 MG PO (08:26)
[2024-05-24] MEDS: BUSPAR 10 MG PO ×2 (08:26→20:18)
[2024-05-24] MEDS: NOVOLOG FLEXPEN 2 UNITS SC (08:27)
[2024-05-24] MEDS: LASIX 40 MG PO ×2 (08:27→14:32)
[2024-05-24] MEDS: ELIQUIS PO ×2 (08:27→08:38)
--- NOTE | 2024-05-24 09:45 | W.PN.PUL.V3 ---
Today's Communication / Plan
-
BiPAP.
Wean FiO2.
Diuresis.
Right and left heart catheterization.
Outpatient pulmonary follow-up
Assessment
-
73-year-old male with complex medical history, sleep apnea obesity hypoventilation on nocturnal BiPAP, history of atrial fibrillation, heart failure, bilateral pneumonia November 2023, presents with worsening shortness of breath. Thought to be in
heart failure, diuresed aggressively since hospital stay, weight down 4 kg. Patient with persistent shortness of breath. We are asked to comment on pulmonary process 05/21/2024
Acute hypoxic respiratory insufficiency
Admission saturation 94% on room air
Suspected congestive heart failure
Diastolic dysfunction, normal EF
Elevated proBNP, now improved
Acute renal insufficiency, creatinine 1.6
Likely in the setting of diuresis, admission creatinine 1.3
Anemia
Elevated right hemidiaphragm, chronic since 2019
Recent bilateral pneumonia November 2023
SOB, multifactorial
Restrictive lung disease likely related to body habitus
Obesity BMI 34
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
COPD/asthma
Chronic allergic conjunctivitis
EARL on BiPAP
CKD
Depression/Anxiety disorder
History of retroperitoneal hematoma c/b hemorrhagic shock (06/2023)
Right adrenal mass stable compared to June 2023
Recurrent falls/ambulatory dysfunction
Chronic A-fib on Eliquis
Hypertension/hyperlipidemia
DM type II
Third-degree heart block s/p PPM
Chronic constipation
Cholelithiasis
Spinal stimulator, history of laminectomy
Plan/recommendations
Respiratory status is relatively stable.
Continue supplemental option-attempt to wean.
BiPAP at night-tolerating well.
Aspiration precautions-speech therapy followed patient
Nebulizers if needed-currently not bronchospastic.
Cardiology evaluation. Ongoing-correspondence reviewed.
Diuresis as tolerated.
Monitor renal function, electrolytes, weight, and lower extremity edema.
Replacement electrolytes as needed.
Continues with anticoagulation-on Eliquis
Atrial fibrillation. Rate control.
Right and left heart catheterization 05/24/24.
Reviewed with nursing
Outpatient pulmonary [id number]. Figueroa-last seen 01/08/24-no-show April 2024-needs follow-up with PFTs, BiPAP compliance
Diagnostic Data
Chest X-Ray: 05/21/24- Low lung volumes. No active pulmonary process.
CT Scan: CHEST 05/22/24- No CT evidence for an acute cardiopulmonary process. Low lung volumes with scattered mild bilateral subsegmental atelectasis. Moderate elevation of the right hemidiaphragm.
LE duplex 05/21/24- No evidence of deep venous thrombosis bilaterally.
Echo: 05/17/24- LV size and function with no regional wall motion abnormality. LVEF is approximately 60 to 65% by Villalpando's method of discs. Mild concentric LVH. Normal right ventricular size and function. No significant valvular disease. Compared
to prior from November 28, 2023, overall LV function is normal 60-65% previously low normal at approximately 50%.
[place] 05/21/24- FEV1 1.0L 31%, FVC 1.37L 32%, ratio 73. Post FEV1 1.02L 32% no BD response
Reports and relevant images were personally reviewed.
Subjective Data
-
Date of Service:
Date of Service: May 24, 2024
Chief Complaint: Pulmonary Follow Up
Subjective:
Complains of some chest pressure, shortness of breath at rest and minimal exertion, no pleurisy, chest congestion, productive cough, or abdominal pain
Review of Systems
General: Other ( per HPI)
Objective Data
Data Reviewed
Vital Signs / I&O:
Vital Signs
Temp Pulse Resp BP Pulse Ox
98.4 F 69 16 147/74 95
05/24/24 07:05 05/24/24 08:27 05/24/24 08:27 05/24/24 08:27 05/24/24 08:27
Intake and Output
05/23/24 05/24/24 05/25/24
06:59 06:59 06:59
Intake Total 1040 / 1040 480 / 480
Balance 1040 / 1040 480 / 480
SaO2: 95
Nasal Cannula flow liters per minute: 2
Physical Exam
General: Respiratory Distress (n), Comfortable and Other (NAD, obese)
HEENT: Normocephalic, Anicteric and Moist Mucous Membranes
Cardiovascular: Regular Rhythm and Peripheral Edema (trace)
Respiratory: Wheeze (n), Crackles ( rare basilar), Rhonchi, Non-Labored Respirations, Accessory Resp Muscle Use (n) and Stridor (n)
GI: Soft, Non Distended and Non Tender
Neurology: Awake, Alert, Oriented, AO x 3 and No Motor Deficits
Skin: Warm, Good Color, Cyanosis (n), Jaundice (n) and Rash (n)
Labs/Micro/Reports
Lab Data
05/22/24 12:05
05/23/24 06:00
--- NOTE | 2024-05-24 11:26 | CM ---
supply chain development manager reviewed patient's chart and per updated notes patient is for possible right and left heart cath today. Plan remains for patient to return to home with [facility] and private caregivers, per patient's sister, Kyra, , she will be
available on Friday to assist with discharge if patient is discharged on Friday.
Per sister, Kyra, patient has transport with [employer] [phone] but transport company needs 3-4 days notice to set up transport
Plan; Home with [facility] and private duty caregivers.
[2024-05-24 11:46] LABS: Glucose - Point of Care 118 mg/dl (70-99)
[2024-05-24] MEDS: NOVOLOG FLEXPEN SC ×2 (11:52→16:01)
--- NOTE | 2024-05-24 13:58 | W.PN.HOSP.TC ---
Today's Communication/Plan
-
cardiac cath
Assessment / Plan
Assessment / Plan
73yo M with PMHx of EARL, HFpEF, CAD, persistent Afib on eliquis, HTN, HLD, DM, wheelchair dependent 2/2 morbid obesity came with chest pain and dyscomfort, managed for CHF exacerbation, planned for cardiac cath on 05/24/24 Lasix switched to PO on the
same date by Cardio
A/P:
#Acute on chronic HFpEF exacerbation
#Non-ischemic myocardial injury
#Hx of CAD
#persistent Afib s/p PPM
Daily weiught, lasix, follow electrolytes
Echo repeated: preserved EF with pulmonary HTN
Cardiology follows: L and R heart cath for 05/24/24
Cont ELiuqis (held for procedure, restart in 24-48h depending on cardiology), rate control and telemetry
#Mild anemia
#Recurrent mild thrombocytopenia
Follow CBC
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
follow Cr
#R hemidiaphragm elevation
#Restrictive lung disease
#EARL
Pulm follows
cont CPAP
#Small R nephrolithiasis
#R adrenal adenoma
outpatient w/u for hormonal secretion and MRI recommended
#DM type 2 with nephropathy
Insulin SS, DM diet, Accuchecks
#HLD
#Anxiety d/o
#Morbid obesity with BMI
cont home meds
advise to decrease calorie intake
DVT ppx Eliquis
Full code
I have spent at least 37min reviewing chart,test results, direct patient care
Anticipated Discharge: > 48 hours
Subjective/Interval History
-
Date of Service: May 24, 2024
Objective Data
-
Vital Signs:
Vital Signs
Temp Pulse Resp BP Pulse Ox
98.8 F 85 17 143/82 98
05/24/24 11:00 05/24/24 11:00 05/24/24 11:00 05/24/24 11:00 05/24/24 11:00
I&O
05/23/24 05/24/24 05/25/24
06:59 06:59 06:59
Intake Total 1040 / 1040 480 / 480
Balance 1040 / 1040 480 / 480
Review of Systems
-
History Source: Patient
All other systems: Reviewed and negative
Physical Exam
-
General: No Apparent Distress and Obese
HEENT: Moist Mucous Membranes
Respiratory: Clear to Auscultation
GI: Soft, Nontender and Nondistended
Genito-urinary: No Costovertebral Tender
Musculoskeletal: No Clubbing, No Cyanosis and No Edema
Skin: Warm
Neuro: Awake, Alert, Oriented and AO x 3
Psych: Calm
--- NOTE | 2024-05-24 14:59 | ITS.CL.CATH ---
[employer] Medical Assistant - Catheterization
Cardiac Catheterization
Procedure Report:
CARDIAC CATHETERIZATION REPORT
Date of Procedure: 05/24/2024
Referring: Kirk Serrano M.D.
Indication: Chest pressure, determination of volume status.
PROCEDURE:
1. Right heart catheterization.
2. Left heart catheterization.
3. Coronary angiography.
4. Successful IFR of the mid RCA.
ACCESS:
6 Monegasque right radial artery.
5 Monegasque right antecubital vein using a modified Seldinger technique under ultrasound guidance.
CATHETERS:
1. 5 Monegasque balloon wedge.
2. 5 Monegasque JL 3.5.
3. 5 Monegasque JR4.
4. 6 Monegasque JR4 guiding catheter.
HEMODYNAMIC DATA
Weight (kg): 117.5
AO (s/d/x mmHg): 126/60/80
LV (s/x mmHg): 129/21
PCWP (a/v/x mmHg): 26/30/25
PA (s/d/x mmHg): 65/30/42
RV (s/x mmHg): 65/14
RA (a/v/x mmHg): 17/18/15
SVC SvO2 (%): 54.9
PA SvO2 (%): 56.1
SaO2 (%): 85.4
Hbg (g/dL): 10.9
CO (L/min): 6.29
CI (L/min/m2): 2.64
TPG (mmHg): 17
PVR (Petersen Units): 2.70
SVR (dynes*seconds*cm^-5): 827
AVO2 Diff (Volume %): 4.34
AV gradient (x, mmHg): None.
AV area (cm2): Normal.
LEFT VENTRICULOGRAPHY: Not performed.
CORONARY ANGIOGRAPHY
Dominance: Right.
Left Main: Normal size, bifurcating vessel. There is no coronary artery disease.
LAD: Normal size vessel giving rise to 2 diagonals before wrapping around the LAD. The proximal vessel has dense exterior calcification. There are luminal irregularities in the distal LAD there are 70% lesions in the ostia of both diagonals,
relatively improved compared to prior study in 2019.
Ramus: Congenitally absent.
Circumflex: Large size, nondominant vessel giving rise to 1 obtuse marginal. There are minor luminal irregularities with moderate exterior calcification.
RCA: Normal size, dominant vessel. There is a 60-70% lesion in the proximal/mid vessel.
INTERVENTIONS
1. Successful IFR of the 60-70% proximal/mid RCA lesion, demonstrating nonocclusive disease (IFR = 0.93).
Narrative:
The decision was made to perform physiologic testing. The diagnostic catheter was removed over a wire and exchanged for a(n) 6 Monegasque JR4 guiding catheter. The guiding catheter was advanced into the ascending aorta and seated in the right coronary
artery. Additional heparin was given to obtain an ACT greater than 250 seconds. An iFR wire was zeroed outside of the body, then inserted into the guiding sheath. The wire was advanced and the transducer was normalized just outside of the guiding
catheter tip. The wire was advanced into the mid RCA, beyond the 60-70% proximal/mid RCA lesion. Three iFR measurements were taken. The lesion was determined to be nonocclusive (0.93). Pullback was performed, confirming fidelity of measurement.
The IFR wire was withdrawn and the catheter was removed over a standard J-wire.
Closure Device: Vascular band for the right radial artery, manual pressure for the right antecubital vein.
Radiation dose (mGy): 488.44
DAP (cm2.Gy): 41.1942
Fluoroscopy time (minutes): 4.6
Sedation time (minutes): 24
CONCLUSIONS:
1. Right dominant circulation with dense external calcification of the proximal LAD, 70% lesions in the ostia of both diagonals, improved from prior diagnostic study in 2019 and a nonocclusive 60-70% lesion in the proximal/mid RCA (IFR = 0.93).
2. Moderate to severely elevated filling pressures (LVEDP = 21 mmHg, PCWP = 25 mmHg at 117.5 kg).
3. Severe postcapillary pulmonary hypertension (PA = 65/30/42 mmHg, PCWP = 25 mmHg, PVR = 2.70 Petersen units).
RECOMMENDATIONS:
1. Expectant management after cardiac catheterization via right radial/antecubital approach.
2. Limited weight bearing on the right wrist for one week.
3. Increase furosemide to 80 mg p.o. daily and monitor response.
4. Guideline directed medical therapy as hemodynamics will tolerate.
5. Aggressive primary prevention and risk modification given documented atherosclerosis and coronary artery calcification.
6. The patient may benefit from SGLT2 inhibitors.
Copy to: Kirk Serrano M.D., Woody Rodney M.D., Keith Adam M.D.
Jose Adorno DO, FACC, FACP
[2024-05-24 16:00] LABS: Glucose - Point of Care 120 mg/dl (70-99)
[2024-05-24] MEDS: LIPITOR 10 MG PO (20:18)
[2024-05-24] MEDS: ELIQUIS 5 MG PO (20:18)
[2024-05-24 21:39] LABS: Glucose - Point of Care 175 mg/dl (70-99)
[2024-05-24] MEDS: HYCODAN SYRUP 5 ML PO (21:39)
[2024-05-24] MEDS: LANTUS 0.15 UNITS SC (21:40)
[2024-05-25] VITALS (10 sets, daily range): BP systolic 84–124; BP diastolic 42–64; PULSE 2–82; O2SAT 97; BMI 34.2
--- NOTE | 2024-05-25 07:15 | PTCARENOTE ---
Hematoma 10 cm x 1.5 cm noted to side of right brachial site during post cardiac cath site checks. IVU nurses came up to assess site and pressed site for 15 minutes in which afterward area was soft with a small area still hard. RN reached out to
Dr. Adam deputy insurance commissioner for cardiology and informed him of the above. New order for CBC to be drawn at noon. Continue to monitor site.
[2024-05-25] MEDS: ADVAIR HFA 45/21 MCG INHALER 2 PUFF INH ×2 (08:11→20:25)
[2024-05-25 08:23] LABS: Glucose - Point of Care 109 mg/dl (70-99)
[2024-05-25] MEDS: COZAAR 100 MG PO (08:30)
[2024-05-25] MEDS: COREG 12.5 MG PO ×2 (08:30→20:25)
[2024-05-25] MEDS: BUSPAR 10 MG PO ×2 (08:30→20:25)
[2024-05-25] MEDS: LEXAPRO 20 MG PO (08:31)
[2024-05-25] MEDS: MUCINEX 1200 MG PO ×2 (08:31→20:25)
[2024-05-25] MEDS: NEURONTIN 300 MG PO ×2 (08:31→20:25)
[2024-05-25] MEDS: JARDIANCE 10 MG PO (08:31)
[2024-05-25] MEDS: PROTONIX 40 MG PO (08:31)
[2024-05-25] MEDS: MIRALAX 17 GRAMS PO (08:31)
[2024-05-25] MEDS: LASIX 80 MG PO (08:31)
[2024-05-25] MEDS: ELIQUIS 5 MG PO ×2 (08:31→20:26)
--- NOTE | 2024-05-25 09:17 | W.PN.PUL.V3 ---
Today's Communication / Plan
-
BiPAP at night
Diuresis
Wean oxygen
Increase activity
Outpatient pulmonary follow-up
Assessment
-
73-year-old male with complex medical history, sleep apnea obesity hypoventilation on nocturnal BiPAP, history of atrial fibrillation, heart failure, bilateral pneumonia November 2023, presents with worsening shortness of breath. Thought to be in
heart failure, diuresed aggressively since hospital stay, weight down 4 kg. Patient with persistent shortness of breath. We are asked to comment on pulmonary process 05/21/2024
Acute hypoxic respiratory insufficiency
Admission saturation 94% on room air
Suspected congestive heart failure
Diastolic dysfunction, normal EF
Elevated proBNP, now improved
Acute renal insufficiency, creatinine 1.6
Likely in the setting of diuresis, admission creatinine 1.3
Anemia
Elevated right hemidiaphragm, chronic since 2019
Recent bilateral pneumonia November 2023
SOB, multifactorial
Restrictive lung disease likely related to body habitus
Obesity BMI 34
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
COPD/asthma
Chronic allergic conjunctivitis
EARL on BiPAP
CKD
Depression/Anxiety disorder
History of retroperitoneal hematoma c/b hemorrhagic shock (06/2023)
Right adrenal mass stable compared to June 2023
Recurrent falls/ambulatory dysfunction
Chronic A-fib on Eliquis
Hypertension/hyperlipidemia
DM type II
Third-degree heart block s/p PPM
Chronic constipation
Cholelithiasis
Spinal stimulator, history of laminectomy
Plan
Pulmonary condition remained stable
Continue supplemental option-attempt to wean-it does not have home oxygen
Assess discharge supplemental oxygen needs prior to discharge
BiPAP at night-tolerating well.
Aspiration precautions-speech therapy followed patient
Nebulizers if needed-currently not bronchospastic.
Cardiology evaluation ongoing-correspondence reviewed.
Diuresis as tolerated-especially in light of right heart catheterization findings
Monitor renal function, electrolytes, weight, and lower extremity edema.
Replacement electrolytes as needed.
Continues with anticoagulation-on Eliquis
Atrial fibrillation rate control
Right and left heart catheterization 05/24/24-RA 17, PA 65, PCWP-26, 70% distal LAD lesion with successful IFR of the 70% proximal/mid RCA lesion-lesion was determined to be nonocclusive-no intervention performed
Reviewed with nursing
Outpatient pulmonary sratzz-tm-[facility]-last seen 01/08/24-no-show April 2024-needs follow-up with PFTs, BiPAP compliance
Diagnostic Data
Chest X-Ray: 05/21/24- Low lung volumes. No active pulmonary process.
CT Scan: CHEST 05/22/24- No CT evidence for an acute cardiopulmonary process. Low lung volumes with scattered mild bilateral subsegmental atelectasis. Moderate elevation of the right hemidiaphragm.
LE duplex 05/21/24- No evidence of deep venous thrombosis bilaterally.
Echo: 05/17/24- LV size and function with no regional wall motion abnormality. LVEF is approximately 60 to 65% by Villalpando's method of discs. Mild concentric LVH. Normal right ventricular size and function. No significant valvular disease. Compared
to prior from November 28, 2023, overall LV function is normal 60-65% previously low normal at approximately 50%.
[place] 05/21/24- FEV1 1.0L 31%, FVC 1.37L 32%, ratio 73. Post FEV1 1.02L 32% no BD response
Reports and relevant images were personally reviewed.
Subjective Data
-
Date of Service:
Date of Service: May 25, 2024
Chief Complaint: Pulmonary Follow Up and Dyspnea Follow Up
Subjective:
Tolerated BiPAP, no complaints of shortness of breath, productive cough, chest pain, abdominal pain
Review of Systems
General: Other (Per HPI)
Objective Data
Data Reviewed
Vital Signs / I&O:
Vital Signs
Temp Pulse Resp BP Pulse Ox
98.2 F 75 18 123/57 95
05/25/24 03:15 05/25/24 08:12 05/25/24 08:12 05/25/24 07:10 05/25/24 08:12
Intake and Output
05/24/24 05/25/24 05/26/24
06:59 06:59 06:59
Intake Total 480 / 480 480 / 480
Balance 480 / 480 480 / 480
SaO2: 95
Nasal Cannula flow liters per minute: 1.5
Physical Exam
General: Respiratory Distress (n), Comfortable and Other (NAD, obese)
HEENT: Normocephalic, Anicteric and Moist Mucous Membranes
Cardiovascular: Regular Rhythm and Peripheral Edema (trace)
Respiratory: Wheeze (n), Crackles ( rare basilar), Rhonchi, Non-Labored Respirations, Accessory Resp Muscle Use (n) and Stridor (n)
GI: Soft, Non Distended and Non Tender
Neurology: Awake, Alert, Oriented, AO x 3 and No Motor Deficits
Skin: Warm, Good Color, Cyanosis (n), Jaundice (n) and Rash (n)
[2024-05-25] MEDS: NOVOLOG FLEXPEN 2 UNITS SC ×3 (09:18→19:11)
--- NOTE | 2024-05-25 09:19 | W.PN.CD ---
Today's Communication / Plan
-
cont. oral lasix 80 PO with goal 500 cc negative
Impression / Plan
-
Background: 73M with CAD, paroxysmal atrial fibrillation on Eliquis, SSS status post PPM (Medtronic), HFrEF with recovered EF, type 2 diabetes mellitus, CKD stage 3, gout, and EARL who presented to the emergency department with chest pain and
hypoxia, now with persistent symptoms despite diuresis. Cardiac catheterization was performed yesterday which demonstrated no new obstructive coronary artery disease and elevated biventricular filling pressures.
Dyspnea
HFmrEF => HFimprovedEF, acute on chronic
- likely multifactorial with contributions from chronic HFpEF and primary pulmonary disease. His BNP is now normal which would indicate heart failure has improved. His PCWP was 25 on cath yesterday, abnormal but not dramatically elevated for his
degree of symptoms. Will continue diuresis with 80 PO lasix daily for goal 500 negative daily. Appreciate pulmonary recs.
- SGLT2i are no cost, he is now on Jardiance
- Daily weight, I/Os, and BMP
- Updated Echo 05/17/2024: LVEF 60-65%, mild cLVH, no significant valve disease, right heart pressure could not be estimated
- Cath 07/2020: PCWP 23, RA 15, PA 60/30. Mild CAD
- Cath 05/24/2024: PA 15, PCWP 25, no new obstructive CAD
CAD
- Abnormal troponin, likely Type II IA (nonischemic myocardial injury in setting of acute on chronic diastolic heart failure), no new obstructive lesions on cath 05/24/24
- Continue medical management with atorvastatin, no asa in setting of eliquis with chronic cad
- recheck lipid panel (last in system from 2019)
Persistent atrial fibrillation
- No plans for rhythm control for now
- Oral Anticoagulation: Eliquis 5mg BID
- [id number]: score at least 6 (Heart failure, HTN, age 75 or more, Diabetes Mellitus, Vascular disease)
HTN, controlled
-continue GDMT
CKD, Stage 3
-1.6 up from 1.3 at baseline, continue to monitor
Type II DM, Hgba1c improved, 6.0% last month
Anemia of chronic disease
Heart block, S/p Medtronic PPM
Subjective: No difference in symptoms today. Cath site looks intact and clean, some miles hematoma near the brachial vein site that is soft and minimally tender.
Physical Exam
Vital Signs/Labs
Vital Signs
Temp Pulse Resp BP Pulse Ox
36.8 C 75 18 123/57 95
05/25/24 03:15 05/25/24 08:12 05/25/24 08:12 05/25/24 07:10 05/25/24 09:17
05/24/24 05/25/24 05/26/24
06:59 06:59 06:59
Actual Weight 117.48 kg 114.305 kg
Magnesium 1.8 mg/dl (1.6-2.3) 05/21/24 09:13
05/17/24 05/17/24 05/21/24
04:05 04:05 09:13
Rsl-M-Mivfjztsctx Pept 0 Cancelled 107
Physical Exam
Constitutional: No acute distress, Comfortable and Confusion
Cardiovascular: Rhythm & rate is regular
Respiratory: Respiratory effort normal
GI: Soft and Distention absent
Neuro/Psych: Alert, Oriented and AO x 3
Other: Cath Site (cdi, mild hematoma at brachial vein site that is non-tender and soft)
Data Reviewed
-
Date of Service: May 25, 2024
Medical Decision Making: Reviewed Test Results, Tests Ordered and Test Interpretation
EKG: Tracing Personally Visualized and interpreted
Medical Tests (PFT, Pathology etc): Image Personally Visualized and interpreted
Labs: Labs Reviewed by me
[2024-05-25] MEDS: HYCODAN SYRUP 5 ML PO (09:53)
[2024-05-25] MEDS: REFRESH EYE DROPS (PF) 1 DROPS BOTH EYES (09:55)
[2024-05-25 12:22] LABS: Glucose - Point of Care 188 mg/dl (70-99)
--- NOTE | 2024-05-25 13:49 | PTCARENOTE ---
Pt refused to have blood work done today. 'Did you see what they did to my arm? This was not from the cardiac procedure.' Dr. Aguilar made aware.
--- NOTE | 2024-05-25 14:31 | W.PN.HOSP.TC ---
Today's Communication/Plan
-
Repeat XR
labs in AM - today patient declined
Assessment / Plan
Assessment / Plan
73yo M with PMHx of EARL, HFpEF, CAD, persistent Afib on eliquis, HTN, HLD, DM, wheelchair dependent 2/2 morbid obesity came with chest pain and dyscomfort, managed for CHF exacerbation, cardiac cath done on 05/24/24 Lasix switched to PO on the same
date by Cardio due to non-obstructive disease. Due to lack of home support and poor ambulatory performance will need to start with STR.
A/P:
#Acute on chronic HFpEF exacerbation
#Non-ischemic myocardial injury
#Hx of CAD
#persistent Afib s/p PPM
Daily weiught, lasix, follow electrolytes
Echo repeated: preserved EF with pulmonary HTN
Cardiology follows: L and R heart cath for 05/24/24
Cont ELiuqis (held for procedure, restart in 24-48h depending on cardiology), rate control and telemetry
#Mild anemia
#Recurrent mild thrombocytopenia
Follow CBC
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
follow Cr
#Cough
most likely bronchitis
repeat XR
doxy empirically for immunomodulatory and antiinflammatory properties
#R hemidiaphragm elevation
#Restrictive lung disease
#EARL
Pulm follows
cont CPAP
#Small R nephrolithiasis
#R adrenal adenoma
outpatient w/u for hormonal secretion and MRI recommended
#DM type 2 with nephropathy
Insulin SS, DM diet, Accuchecks
#HLD
#Anxiety d/o
#Morbid obesity with BMI
cont home meds
advise to decrease calorie intake
DVT ppx Eliquis
Full code
I have spent at least 37min reviewing chart,test results, direct patient care
Anticipated Discharge: Within 24 hours
Subjective/Interval History
-
Date of Service: May 25, 2024
Objective Data
-
Labs:
Laboratory Results
05/25/24
12:00
WBC Pending
Hgb Pending
Hct Pending
Plt Count Pending
Vital Signs:
Vital Signs
Temp Pulse Resp BP Pulse Ox
97.8 F 54 18 113/53 95
05/25/24 11:00 05/25/24 14:28 05/25/24 14:28 05/25/24 14:28 05/25/24 11:00
I&O
05/24/24 05/25/24 05/26/24
06:59 06:59 06:59
Intake Total 480 / 480 480 / 480
Balance 480 / 480 480 / 480
Review of Systems
-
History Source: Patient
All other systems: Reviewed and negative
Respiratory: Reports Cough
Physical Exam
-
General: Well Nourished and No Apparent Distress
Respiratory: Clear to Auscultation; Negative Wheezes
Cardiac: Regular Rhythm
GI: Soft, Nontender and Nondistended
Genito-urinary: No Costovertebral Tender
Musculoskeletal: No Clubbing, No Cyanosis and No Edema
Skin: Warm
Neuro: Awake, Alert and Oriented
Psych: Calm
--- NOTE | 2024-05-25 15:03 | CM ---
Addendum entered by Lesly Echeverria 05/25/24 15:48:
[facility] indicated patient left on 05/14/24 and requested referral. Pending acceptance patient would need auth. CM will send referral
Original Note:
Patient seen at bedside. Patient requesting transfer to SNF and requested CM call patient sister. Patient sister requested referral to [facility], where he was recently a patient.Patient sister states that the caregivers she had hired may not be
available for approx a week and she is not available this weekend. CM will call and make referral. Patient open to any facility in local area. CM will continue to follow for discharge planning needs.
Plan; home with caregivers/VN vs SNF;pending referrals and auth
[2024-05-25] MEDS: NOVOLOG FLEXPEN SC (17:43)
[2024-05-25 19:04] LABS: Glucose - Point of Care 128 mg/dl (70-99)
[2024-05-25] MEDS: VIBRAMYCIN 100 MG PO (20:25)
[2024-05-25] MEDS: LIPITOR 10 MG PO (20:25)
[2024-05-25 21:12] LABS: Glucose - Point of Care 204 mg/dl (70-99)
[2024-05-25] MEDS: LANTUS 0.15 UNITS SC (21:18)
[2024-05-26] VITALS (8 sets, daily range): BP systolic 117–132; BP diastolic 57–65; PULSE 2–57; BMI 34.7
--- NOTE | 2024-05-26 03:16 | DOWNTIME ---
There was a [employer] Client [employer]s Specialist Downtime on 05/26/2024 from 0100 to 05/26/2024 at 0252. Downtime documentation of patient's care, including medication administrations, has been reconciled in the electronic record per guidelines. Refer to the
patient's paper chart under the miscellaneous tab to see printed paper medication records and downtime forms.
[2024-05-26 08:23] LABS: Glucose - Point of Care 120 mg/dl (70-99)
[2024-05-26] MEDS: ADVAIR HFA 45/21 MCG INHALER 2 PUFF INH ×2 (08:25→20:19)
--- NOTE | 2024-05-26 08:59 | W.PN.PUL.V3 ---
Today's Communication / Plan
-
Wean oxygen
BiPAP at night
Gentle diuresis
Outpatient pulmonary follow-up
Assessment
-
73-year-old male with complex medical history, sleep apnea obesity hypoventilation on nocturnal BiPAP, history of atrial fibrillation, heart failure, bilateral pneumonia November 2023, presents with worsening shortness of breath. Thought to be in
heart failure, diuresed aggressively since hospital stay, weight down 4 kg. Patient with persistent shortness of breath. We are asked to comment on pulmonary process 05/21/2024
Acute hypoxic respiratory insufficiency
Admission saturation 94% on room air
Suspected congestive heart failure
Diastolic dysfunction, normal EF
Elevated proBNP, now improved
Acute renal insufficiency, creatinine 1.6
Likely in the setting of diuresis, admission creatinine 1.3
Anemia
Elevated right hemidiaphragm, chronic since 2019
Recent bilateral pneumonia November 2023
SOB, multifactorial
Restrictive lung disease likely related to body habitus
Obesity BMI 34
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
COPD/asthma
Chronic allergic conjunctivitis
EARL on BiPAP
CKD
Depression/Anxiety disorder
History of retroperitoneal hematoma c/b hemorrhagic shock (06/2023)
Right adrenal mass stable compared to June 2023
Recurrent falls/ambulatory dysfunction
Chronic A-fib on Eliquis
Hypertension/hyperlipidemia
DM type II
Third-degree heart block s/p PPM
Chronic constipation
Cholelithiasis
Spinal stimulator, history of laminectomy
Plan
Pulmonary condition remained stable
Continue supplemental option-attempt to wean-it does not have home oxygen
Assess discharge supplemental oxygen needs prior to discharge
BiPAP at night-tolerating well.
Aspiration precautions-speech therapy followed patient
Nebulizers if needed-currently not bronchospastic.
Chest x-ray 05/25/2024-unchanged, probable atelectasis left lower lobe and marked elevation right hemidiaphragm
Cardiology evaluation ongoing-correspondence reviewed.
Diuresis as tolerated-especially in light of right heart catheterization findings
Monitor renal function, electrolytes, weight, and lower extremity edema.
Replacement electrolytes as needed.
Continues with anticoagulation-on Eliquis
Atrial fibrillation rate control
Right and left heart catheterization 05/24/24-RA 17, PA 65, PCWP-26, 70% distal LAD lesion with successful IFR of the 70% proximal/mid RCA lesion-lesion was determined to be nonocclusive-no intervention performed
Reviewed with nursing
Outpatient pulmonary ilrduc-wt-[facility]e. Figu[facility]-last seen 01/08/24-no-show April 2024-needs follow-up with PFTs, BiPAP compliance
Diagnostic Data
Chest X-Ray: 05/21/24- Low lung volumes. No active pulmonary process.
CT Scan: CHEST 05/22/24- No CT evidence for an acute cardiopulmonary process. Low lung volumes with scattered mild bilateral subsegmental atelectasis. Moderate elevation of the right hemidiaphragm.
LE duplex 05/21/24- No evidence of deep venous thrombosis bilaterally.
Echo: 05/17/24- LV size and function with no regional wall motion abnormality. LVEF is approximately 60 to 65% by Villalpando's method of discs. Mild concentric LVH. Normal right ventricular size and function. No significant valvular disease. Compared
to prior from November 28, 2023, overall LV function is normal 60-65% previously low normal at approximately 50%.
Mj 05/21/24- FEV1 1.0L 31%, FVC 1.37L 32%, ratio 73. Post FEV1 1.02L 32% no BD response
Reports and relevant images were personally reviewed.
Subjective Data
-
Date of Service:
Date of Service: May 26, 2024
Chief Complaint: Pulmonary Follow Up and Dyspnea Follow Up
Subjective:
Tolerated BiPAP, no complaints of increased shortness of breath, chest pain, chest congestion, productive cough or abdominal pain
Review of Systems
General: Other (Per HPI)
Objective Data
Data Reviewed
Vital Signs / I&O:
Vital Signs
Temp Pulse Resp BP Pulse Ox
97.4 F 73 16 119/59 97
05/26/24 07:30 05/26/24 08:27 05/26/24 08:27 05/26/24 07:30 05/26/24 08:27
Intake and Output
05/25/24 05/26/24 05/27/24
06:59 06:59 06:59
Intake Total 480 / 480 400 / 400
Output Total 600 / 600
Balance 480 / 480 -200 / -200
SaO2: 97
Nasal Cannula flow liters per minute: 1.5
Physical Exam
General: Respiratory Distress (n), Comfortable and Other (NAD, obese)
HEENT: Normocephalic, Anicteric and Moist Mucous Membranes
Cardiovascular: Regular Rhythm and Peripheral Edema (trace)
Respiratory: Wheeze (n), Crackles ( rare basilar), Rhonchi, Non-Labored Respirations, Accessory Resp Muscle Use (n) and Stridor (n)
GI: Soft, Non Distended and Non Tender
Neurology: Awake, Alert, Oriented, AO x 3 and No Motor Deficits
Skin: Warm, Good Color, Cyanosis (n), Jaundice (n) and Rash (n)
[2024-05-26] MEDS: VIBRAMYCIN 100 MG PO ×2 (10:02→20:00)
[2024-05-26] MEDS: PROTONIX 40 MG PO (10:02)
[2024-05-26] MEDS: MUCINEX 1200 MG PO ×2 (10:02→19:59)
[2024-05-26] MEDS: MIRALAX 17 GRAMS PO (10:02)
[2024-05-26] MEDS: NEURONTIN 300 MG PO ×2 (10:02→19:59)
[2024-05-26] MEDS: COZAAR 100 MG PO (10:02)
--- NOTE | 2024-05-26 10:02 | W.PN.CD ---
Today's Communication / Plan
-
Continue daily Lasix 80 mg
If weight climbs we will go to Lasix 80 BID
I wont add Aldactone as pt has significant transportation issues and follow up BMP likely challenging
- If he goes to SNF I would add Aldactone and plan for BMP q 2 weeks for 4-6 weeks and then q 3 months
Impression / Plan
-
Background: 73M with CAD, paroxysmal atrial fibrillation on Eliquis, AV block, complete, status post PPM (Medtronic), HFrEF => HFimproved EF/with recovered EF, type 2 diabetes mellitus, CKD stage 3, gout, and EARL who presented to the emergency
department with chest pain and hypoxia, now with persistent symptoms despite diuresis. Cardiac catheterization was performed 05/24/2024 which demonstrated no new obstructive coronary artery disease and elevated biventricular filling pressures.
Dyspnea
- Multifactorial but clearly HF is a significant component
- Left diaphragm elevation
HFmrEF => HFimprovedEF, acute on chronic
- pBNP is now normal which would indicate heart failure has improved.
- His PCWP was 25 on cath 05/24/2024, abnormal
- Lets pick a goal weight of 115.5 kg (hospital scale)
- SGLT2i are no cost, he is now on Jardiance
- Daily weight, I/Os, and BMP
- Wry-A-Goacajwwudq is now normal 2119 => 107!!!
- Updated Echo 05/17/2024: LVEF 60-65%, mild cLVH, no significant valve disease, right heart pressure could not be estimated
- Cath 07/2020: PCWP 23, RA 15, PA 60/30. Mild CAD
- Cath 05/24/2024: Weight (kg):117.5, RA 15, PCWP 25, PA 65/30; no new obstructive CAD
CAD
- Abnormal troponin =>nonischemic myocardial injury in setting of acute on chronic diastolic heart failure
- no new obstructive lesions on cath 05/24/24
- Continue medical management with atorvastatin, no asa in setting of Eliquis with chronic cad
- I ordered a lipid panel
Persistent atrial fibrillation
- He is in Sinus with V tracking, AFib seems paroxysmal
- Oral Anticoagulation: Eliquis 5mg BID
- [id number]: score at least 6 (Heart failure, HTN, age 75 or more, Diabetes Mellitus, Vascular disease)
HTN, controlled
CKD, Stage 3
-1.6 up from 1.3 at baseline, continue to monitor
Type II DM, Hgba1c improved, 6.0% last month
Anemia of chronic disease
Heart block, S/p Medtronic PPM
Subjective: No difference in symptoms today. Cath site looks intact and clean, some miles hematoma near the brachial vein site that is soft and minimally tender.
Physical Exam
Vital Signs/Labs
Vital Signs
Temp Pulse Resp BP Pulse Ox
97.4 F 73 16 119/59 97
05/26/24 07:30 05/26/24 08:27 05/26/24 08:27 05/26/24 07:30 05/26/24 08:59
05/25/24 05/26/24 05/27/24
06:59 06:59 06:59
Actual Weight 114.305 kg 115.893 kg
Magnesium 1.8 mg/dl (1.6-2.3) 05/21/24 09:13
05/17/24 05/17/24 05/21/24
04:05 04:05 09:13
Esh-K-Zdmcqpxchdp Pept 0 Cancelled 107
Physical Exam
Constitutional: No acute distress
Cardiovascular: Rhythm & rate is regular and Pedal edema is absent
Respiratory: Respiratory effort normal and Lungs clear to auscul. (decrease left base)
GI: Soft and Distention absent
Neuro/Psych: Alert
Data Reviewed
-
Date of Service: May 26, 2024
[2024-05-26] MEDS: LASIX 80 MG PO (10:03)
[2024-05-26] MEDS: NOVOLOG FLEXPEN 2 UNITS SC ×3 (10:03→17:13)
[2024-05-26] MEDS: COREG 12.5 MG PO ×2 (10:03→19:59)
[2024-05-26] MEDS: JARDIANCE 10 MG PO (10:03)
[2024-05-26] MEDS: LEXAPRO 20 MG PO (10:03)
[2024-05-26] MEDS: BUSPAR 10 MG PO ×2 (10:03→19:59)
[2024-05-26] MEDS: ELIQUIS 5 MG PO ×2 (10:03→19:59)
[2024-05-26] MEDS: REFRESH EYE DROPS (PF) 1 DROPS BOTH EYES (10:13)
--- NOTE | 2024-05-26 11:42 | W.PN.HOSP.TC ---
Addendum entered and electronically signed by Polo Duran MD 05/26/24 13:08:
Mild recurrent thrombocytopenia - since January 2024 - reasonable outpatient hematology referral
Single episode of leukopenia - monitor
Chronic anemia - outpatient PCP workup
Original Note:
Today's Communication/Plan
-
cont diuresis as per cardio
Assessment / Plan
Assessment / Plan
73yo M with PMHx of EARL, HFpEF, CAD, persistent Afib on eliquis, HTN, HLD, DM, wheelchair dependent 2/2 morbid obesity came with chest pain and discomfort, managed for CHF exacerbation, cardiac cath done on 05/24/24 Lasix switched to PO on the same
date by Cardio due to non-obstructive disease, however no significant weight loss and dyspnea still persists, so diuretics to be adjusted. Due to lack of home support and poor ambulatory performance will need to start with STR.
Most likely patient has multifactorial SOB with CHF, recent pneumonia and restrictive lung disease combination
A/P:
#Acute on chronic HFpEF exacerbation
#Non-ischemic myocardial injury
#Hx of CAD
#persistent Afib s/p PPM
Daily weight, lasix, follow electrolytes
Echo repeated: preserved EF with pulmonary HTN
Cardiology follows: L and R heart cath for 05/24/24
Cont Eliquis (held for procedure, restart in 24-48h depending on cardiology), rate control and telemetry
#Mild anemia
#Recurrent mild thrombocytopenia
Follow CBC
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
follow Cr
#Cough
most likely bronchitis
repeat XR
doxy empirically for immunomodulatory and antiinflammatory properties
#R hemidiaphragm elevation
#Restrictive lung disease
#EARL
Pulm follows
cont CPAP
#Small R nephrolithiasis
#R adrenal adenoma
outpatient w/u for hormonal secretion and MRI recommended
#DM type 2 with nephropathy
Insulin SS, DM diet, Accuchecks
#HLD
#Anxiety d/o
#Morbid obesity with BMI
cont home meds
advise to decrease calorie intake
DVT ppx Eliquis
Full code
I have spent at least 37min reviewing chart,test results, direct patient care
Anticipated Discharge: > 48 hours
Subjective/Interval History
-
Date of Service: May 26, 2024
Objective Data
-
Labs:
Laboratory Results
05/26/24
06:00
WBC Pending
Hgb Pending
Hct Pending
Plt Count Pending
Sodium Pending
Potassium Pending
Chloride Pending
Carbon Dioxide Pending
BUN Pending
Creatinine Pending
Glucose Pending
Calcium Pending
Total Bilirubin Pending
AST Pending
ALT Pending
Alkaline Phosphatase Pending
Vital Signs:
Vital Signs
Temp Pulse Resp BP Pulse Ox
97.8 F 59 16 120/57 97
05/26/24 11:29 05/26/24 11:29 05/26/24 11:29 05/26/24 11:29 05/26/24 08:59
I&O
05/25/24 05/26/24 05/27/24
06:59 06:59 06:59
Intake Total 480 / 480 400 / 400
Output Total 600 / 600
Balance 480 / 480 -200 / -200
Review of Systems
-
History Source: Patient
All other systems: Reviewed and negative
Respiratory: Reports Other (excessive mucus)
Physical Exam
-
General: Well Developed, Well Nourished, No Apparent Distress and Obese
HEENT: Normocephalic and Atraumatic
Respiratory: Clear to Auscultation
Cardiac: Regular Rhythm
GI: Soft, Nontender and Nondistended
Musculoskeletal: No Clubbing, No Cyanosis, Edema, Right Lower Extrem and Edema, Left Lower Extrem
Skin: Warm
Neuro: Awake, Alert, Oriented and AO x 3
[2024-05-26 12:03] LABS: ACT-LR - POC > 397 Seconds (116-155)
[2024-05-26 12:06] LABS: Glucose - Point of Care 204 mg/dl (70-99)
[2024-05-26 12:27] LABS: % Basophils 0.3 % (0-2); % Eosinophils 2.7 % (0-6); % Immature Granulocytes 0.5 % (0-0.5); % Lymphocytes 29.8 % (20.5-51.1); % Monocytes 9.9 % (1.7-9.3); % Neutrophils 56.8 % (42.2-75.2); Absolute Eosinophils 0.1 10^3/uL (0-0.7); Absolute Lymphocytes 1.1 10^3/uL (1.2-3.4); Absolute Monocytes 0.4 10^3/uL (0.1-0.6); Absolute Neutrophils 2.1 10^3/uL (1.4-6.5); Hemoglobin 10.1 g/dL (13.0-18.0); Mean Corp Hgb Conc. 34.8 g/dL (33.0-37.0); Mean Corpuscular Hgb 30.9 pg (27.0-31.0); Mean Corpuscular Volume 88.7 fL (80.0-94.0); Mean Platelet Volume 12.9 fL (7.4-10.4); Nucleated Red Blood Cells % 0 % (-); Platelet Count 122 10^3/uL (130-400); Red Blood Cell Count 3.27 10^6/uL (4.70-6.10); Red Cell Dist. Width 14.3 % (11.5-14.5); White Blood Cell Count 3.7 10^3/uL (4.8-10.8)
[2024-05-26 12:56] LABS: ALT (SGPT) 14 U/L (0-50); AST (SGOT) 19 U/L (17-59); Albumin 3.5 g/dl (3.5-5.0); Alkaline Phosphatase 56 U/L (38-126); Blood Urea Nitrogen 47 mg/dl (9-20); Calcium 8.7 mg/dl (8.4-10.2); Carbon Dioxide 32 mmol/L (22-30); Chloride 99 mmol/L (98-107); Estimated Creatinine Clearance 49 ml/min; Glucose 187 mg/dl (70-99); HDL Cholesterol 31 mg/dl; LDL Cholesterol, Calculated 41 mg/dl; Magnesium 1.9 mg/dl (1.6-2.3); Potassium 4.2 mmol/L (3.5-5.1); Sodium 135 mmol/L (135-145); Total Bilirubin 0.5 mg/dl (0.2-1.3); Total Cholesterol 88 mg/dl (50-199); Total Protein 6.2 g/dl (6.3-8.2); Triglyceride 84 mg/dl (10-149); Very Low Density Lipoprotein 16 mg/dl (0-30); eGFR 41.52
--- NOTE | 2024-05-26 13:14 | CM ---
deployment manager reviewed patient's chart and met with patient and patient is agreeable to skilled placement at [facility], [facility] and [facility], referrals sent.
Plan; Possible skilled placement, needs Auth.
Per sister, Kyra, patient has transport with [place] [phone] but transport company needs 3-4 days notice to set up transport
[2024-05-26 17:03] LABS: Glucose - Point of Care 102 mg/dl (70-99)
[2024-05-26] MEDS: TYLENOL 650 MG PO (18:03)
[2024-05-26] MEDS: LIPITOR 10 MG PO (20:00)
[2024-05-26] MEDS: HYCODAN SYRUP 5 ML PO (20:07)
[2024-05-26 21:27] LABS: Glucose - Point of Care 179 mg/dl (70-99)
[2024-05-26] MEDS: LANTUS 0.15 UNITS SC (21:28)
[2024-05-27 03:39] VITALS: BP 127/65
[2024-05-27 05:11] VITALS: PULSE 2
[2024-05-27 06:00] VITALS: BMI 34.8
[2024-05-27 07:20] LABS: Glucose - Point of Care 84 mg/dl (70-99)
[2024-05-27 07:30] VITALS: BP 124/62
[2024-05-27] MEDS: NOVOLOG FLEXPEN SC (08:19)
[2024-05-27] MEDS: NEURONTIN 300 MG PO ×2 (08:20→19:53)
[2024-05-27] MEDS: LEXAPRO 20 MG PO (08:21)
[2024-05-27] MEDS: VIBRAMYCIN 100 MG PO ×2 (08:21→19:54)
[2024-05-27] MEDS: MUCINEX 1200 MG PO ×2 (08:21→19:53)
[2024-05-27] MEDS: LASIX 80 MG PO (08:21)
[2024-05-27] MEDS: PROTONIX 40 MG PO (08:21)
[2024-05-27] MEDS: ELIQUIS 5 MG PO ×2 (08:22→19:53)
[2024-05-27] MEDS: COREG 12.5 MG PO ×2 (08:22→19:53)
[2024-05-27] MEDS: BUSPAR 10 MG PO ×2 (08:22→19:53)
[2024-05-27] MEDS: COZAAR 100 MG PO (08:22)
[2024-05-27] MEDS: JARDIANCE 10 MG PO (08:22)
[2024-05-27] MEDS: MIRALAX 17 GRAMS PO (08:23)
[2024-05-27 08:25] VITALS: BMI 34.8
[2024-05-27] MEDS: ADVAIR HFA 45/21 MCG INHALER 2 PUFF INH (08:56)
--- NOTE | 2024-05-27 10:11 | W.PN.PUL.V3 ---
Today's Communication / Plan
-
Changed to nebulizers
Increase activity
Diuresis as tolerated
Outpatient pulmonary follow-up
Assessment
-
73-year-old male with complex medical history, sleep apnea obesity hypoventilation on nocturnal BiPAP, history of atrial fibrillation, heart failure, bilateral pneumonia November 2023, presents with worsening shortness of breath. Thought to be in
heart failure, diuresed aggressively since hospital stay, weight down 4 kg. Patient with persistent shortness of breath. We are asked to comment on pulmonary process 05/21/2024
Acute hypoxic respiratory insufficiency
Admission saturation 94% on room air
Suspected congestive heart failure
Diastolic dysfunction, normal EF
Elevated proBNP, now improved
Acute renal insufficiency, creatinine 1.6
Likely in the setting of diuresis, admission creatinine 1.3
Anemia
Elevated right hemidiaphragm, chronic since 2019
Recent bilateral pneumonia November 2023
SOB, multifactorial
Restrictive lung disease likely related to body habitus
Obesity BMI 34
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
COPD/asthma
Chronic allergic conjunctivitis
EARL on BiPAP
CKD
Depression/Anxiety disorder
History of retroperitoneal hematoma c/b hemorrhagic shock (06/2023)
Right adrenal mass stable compared to June 2023
Recurrent falls/ambulatory dysfunction
Chronic A-fib on Eliquis
Hypertension/hyperlipidemia
DM type II
Third-degree heart block s/p PPM
Chronic constipation
Cholelithiasis
Spinal stimulator, history of laminectomy
Plan
Pulmonary condition remained stable
Continue supplemental option-attempt to wean-he does not have home oxygen
Assess discharge supplemental oxygen needs prior to discharge
BiPAP at night-tolerating well.
Aspiration precautions-speech therapy followed patient
Currently on inhalers-would like nebulizers-discontinue Advair
Begin Pulmicort and DuoNebs-reviewed with TRANSPORT TANK TECHNICIAN
Mucinex 1200 mg twice daily
Chest x-ray 05/25/2024-unchanged, probable atelectasis left lower lobe and marked elevation right hemidiaphragm
Cardiology evaluation ongoing-correspondence reviewed.
Diuresis as tolerated-especially in light of right heart catheterization findings
Monitor renal function, electrolytes, weight, and lower extremity edema.
Replacement electrolytes as needed.
Continues with anticoagulation-on Eliquis
Atrial fibrillation rate control
Right and left heart catheterization 05/24/24-RA 17, PA 65, PCWP-26, 70% distal LAD lesion with successful IFR of the 70% proximal/mid RCA lesion-lesion was determined to be nonocclusive-no intervention performed
DVT prophylaxis-on Eliquis
GI prophylaxis-on pantoprazole
Reviewed with nursing
Outpatient pulmonary [id number]-last seen 01/08/24-no-show April 2024-needs follow-up with PFTs, BiPAP compliance
Diagnostic Data
Chest X-Ray: 05/21/24- Low lung volumes. No active pulmonary process.
CT Scan: CHEST 05/22/24- No CT evidence for an acute cardiopulmonary process. Low lung volumes with scattered mild bilateral subsegmental atelectasis. Moderate elevation of the right hemidiaphragm.
LE duplex 05/21/24- No evidence of deep venous thrombosis bilaterally.
Echo: 05/17/24- LV size and function with no regional wall motion abnormality. LVEF is approximately 60 to 65% by Villalpando's method of discs. Mild concentric LVH. Normal right ventricular size and function. No significant valvular disease. Compared
to prior from November 28, 2023, overall LV function is normal 60-65% previously low normal at approximately 50%.
[place] 05/21/24- FEV1 1.0L 31%, FVC 1.37L 32%, ratio 73. Post FEV1 1.02L 32% no BD response
Reports and relevant images were personally reviewed.
Subjective Data
-
Date of Service:
Date of Service: May 27, 2024
Chief Complaint: Pulmonary Follow Up and Dyspnea Follow Up
Subjective:
Tolerating BiPAP at night, no complaints of increasing shortness of breath, still has an annoying cough mostly nonproductive, wants nebulizers instead of inhalers, no chest pain, abdominal pain or increased lower extremity swelling
Review of Systems
General: Other (Per HPI)
Objective Data
Data Reviewed
Vital Signs / I&O:
Vital Signs
Temp Pulse Resp BP Pulse Ox
97.4 F 56 16 124/62 95
05/27/24 07:30 05/27/24 08:56 05/27/24 08:56 05/27/24 07:30 05/27/24 08:56
Intake and Output
05/26/24 05/27/24 05/28/24
06:59 06:59 06:59
Intake Total 400 / 400 840 / 840
Output Total 600 / 600
Balance -200 / -200 840 / 840
SaO2: 95
Nasal Cannula flow liters per minute: 1.5
Physical Exam
General: Respiratory Distress (n), Comfortable and Other (NAD, obese)
HEENT: Normocephalic, Anicteric and Moist Mucous Membranes
Cardiovascular: Regular Rhythm and Peripheral Edema (trace)
Respiratory: Wheeze (n), Crackles ( rare basilar), Rhonchi, Non-Labored Respirations, Accessory Resp Muscle Use (n) and Stridor (n)
GI: Soft, Non Distended and Non Tender
Neurology: Awake, Alert, Oriented, AO x 3 and No Motor Deficits
Skin: Warm, Good Color, Cyanosis (n), Jaundice (n) and Rash (n)
[2024-05-27 11:39] LABS: Glucose - Point of Care 192 mg/dl (70-99)
--- NOTE | 2024-05-27 11:40 | W.PN.HOSP.TC ---
Today's Communication/Plan
-
cont mgmt as per cardiology
Assessment / Plan
Assessment / Plan
73yo M with PMHx of EARL, HFpEF, CAD, persistent Afib on eliquis, HTN, HLD, DM, wheelchair dependent 2/2 morbid obesity came with chest pain and discomfort, managed for CHF exacerbation, cardiac cath done on 05/24/24 Lasix switched to PO on the same
date by Cardio due to non-obstructive disease, however no significant weight loss and dyspnea still persists, so diuretics to be adjusted. Due to lack of home support and poor ambulatory performance will need to start with STR.
Most likely patient has multifactorial SOB with CHF, recent pneumonia and restrictive lung disease combination
A/P:
#Acute on chronic HFpEF exacerbation
#Non-ischemic myocardial injury
#Hx of CAD
#persistent Afib s/p PPM
Daily weight, lasix, follow electrolytes
Echo repeated: preserved EF with pulmonary HTN
Cardiology follows: L and R heart cath for 05/24/24
Cont Eliquis (held for cardiac cath), rate control and telemetry
#Mild anemia
#Recurrent mild thrombocytopenia
Follow CBC
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
follow Cr
#Cough
most likely bronchitis
repeat XR
doxy empirically for immunomodulatory and antiinflammatory properties
#R hemidiaphragm elevation
#Restrictive lung disease
#EARL
Pulm follows
cont CPAP
#Small R nephrolithiasis
#R adrenal adenoma
outpatient w/u for hormonal secretion and MRI recommended
#DM type 2 with nephropathy
Insulin SS, DM diet, Accuchecks
#HLD
#Anxiety d/o
#Morbid obesity with BMI
cont home meds
advise to decrease calorie intake
DVT ppx Eliquis
Full code
I have spent at least 37min reviewing chart,test results, direct patient care
Anticipated Discharge: Within 24 hours
Subjective/Interval History
-
Date of Service: May 27, 2024
Objective Data
-
Labs:
Laboratory Results
05/27/24
06:00
WBC Pending
Hgb Pending
Hct Pending
Plt Count Pending
Sodium Pending
Potassium Pending
Chloride Pending
Carbon Dioxide Pending
BUN Pending
Creatinine Pending
Glucose Pending
Calcium Pending
Total Bilirubin Pending
AST Pending
ALT Pending
Alkaline Phosphatase Pending
Vital Signs:
Vital Signs
Temp Pulse Resp BP Pulse Ox
97.4 F 56 16 124/62 95
05/27/24 07:30 05/27/24 08:56 05/27/24 08:56 05/27/24 07:30 05/27/24 10:12
I&O
05/26/24 05/27/24 05/28/24
06:59 06:59 06:59
Intake Total 400 / 400 840 / 840
Output Total 600 / 600
Balance -200 / -200 840 / 840
Physical Exam
-
General: No Apparent Distress
HEENT: Normocephalic and Atraumatic
Respiratory: Clear to Auscultation
Cardiac: Regular Rhythm
GI: Soft
Musculoskeletal: No Clubbing, No Cyanosis and No Edema
Psych: Calm
--- NOTE | 2024-05-27 12:00 | CM ---
Chart reviewed and recommendation is for skilled placement, patient has been accepted at [facility], case therapist to proceed with Auth, per patient he would also like case therapist to make referrals to [facility] and [facility],
referrals sent to both facilities.
Plan; Hopefully skilled placement at [facility], needs Auth.
[2024-05-27] MEDS: NOVOLOG FLEXPEN 2 UNITS SC ×2 (12:02→16:57)
[2024-05-27] MEDS: DUONEB 3 ML INH ×2 (15:13→19:48)
[2024-05-27 15:43] VITALS: BP 118/52
[2024-05-27 16:36] LABS: Glucose - Point of Care 133 mg/dl (70-99)
[2024-05-27] MEDS: PULMICORT 0.5 MG INH (19:48)
[2024-05-27] MEDS: LIPITOR 10 MG PO (19:54)
[2024-05-27 21:31] LABS: Glucose - Point of Care 191 mg/dl (70-99)
[2024-05-27] MEDS: LANTUS 0.15 UNITS SC (22:01)
[2024-05-27 23:25] VITALS: BP 131/54
[2024-05-28] VITALS (7 sets, daily range): BP systolic 101–150; BP diastolic 39–69; PULSE 2–62; BMI 34.7
[2024-05-28] MEDS: PULMICORT 0.5 MG INH (07:45)
[2024-05-28] MEDS: DUONEB 3 ML INH (07:45)
[2024-05-28 07:57] LABS: Glucose - Point of Care 96 mg/dl (70-99)
[2024-05-28] MEDS: PROTONIX 40 MG PO (09:26)
[2024-05-28] MEDS: VIBRAMYCIN 100 MG PO ×2 (09:26→20:33)
[2024-05-28] MEDS: MUCINEX 1200 MG PO ×2 (09:28→20:33)
[2024-05-28] MEDS: COREG 12.5 MG PO ×2 (09:28→20:33)
[2024-05-28] MEDS: NEURONTIN 300 MG PO ×2 (09:28→20:33)
[2024-05-28] MEDS: LEXAPRO 20 MG PO (09:29)
[2024-05-28] MEDS: LASIX 80 MG PO (09:29)
[2024-05-28] MEDS: BUSPAR 10 MG PO ×2 (09:29→20:33)
[2024-05-28] MEDS: JARDIANCE 10 MG PO (09:29)
[2024-05-28] MEDS: COZAAR 100 MG PO (09:29)
[2024-05-28] MEDS: NOVOLOG FLEXPEN 2 UNITS SC ×3 (09:29→18:31)
[2024-05-28] MEDS: ELIQUIS 5 MG PO ×2 (09:29→20:33)
[2024-05-28] MEDS: MIRALAX 17 GRAMS PO (09:30)
--- NOTE | 2024-05-28 09:56 | W.PN.PUL.V3 ---
Today's Communication / Plan
-
Nebulizers
Wean oxygen
Gentle diuresis
SNF rehab likely
Assessment
-
73-year-old male with complex medical history, sleep apnea obesity hypoventilation on nocturnal BiPAP, history of atrial fibrillation, heart failure, bilateral pneumonia November 2023, presents with worsening shortness of breath. Thought to be in
heart failure, diuresed aggressively since hospital stay, weight down 4 kg. Patient with persistent shortness of breath. We are asked to comment on pulmonary process 05/21/2024
Acute hypoxic respiratory insufficiency
Admission saturation 94% on room air
Suspected congestive heart failure
Diastolic dysfunction, normal EF
Elevated proBNP, now improved
Acute renal insufficiency, creatinine 1.6
Likely in the setting of diuresis, admission creatinine 1.3
Anemia
Elevated right hemidiaphragm, chronic since 2019
Recent bilateral pneumonia November 2023
SOB, multifactorial
Restrictive lung disease likely related to body habitus
Obesity BMI 34
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
COPD/asthma
Chronic allergic conjunctivitis
EARL on BiPAP
CKD
Depression/Anxiety disorder
History of retroperitoneal hematoma c/b hemorrhagic shock (06/2023)
Right adrenal mass stable compared to June 2023
Recurrent falls/ambulatory dysfunction
Chronic A-fib on Eliquis
Hypertension/hyperlipidemia
DM type II
Third-degree heart block s/p PPM
Chronic constipation
Cholelithiasis
Spinal stimulator, history of laminectomy
Plan
Pulmonary condition continues to be stable
Continue supplemental option-attempt to wean-he does not have home oxygen
Assess discharge supplemental oxygen needs prior to discharge
BiPAP at night-tolerating well.
Aspiration precautions-speech therapy followed patient
Currently on inhalers-would like nebulizers-discontinue Advair
Begin Pulmicort and DuoNebs-reviewed with CARE ATTENDANT
Mucinex 1200 mg twice daily
Chest x-ray 05/25/2024-unchanged, probable atelectasis left lower lobe and marked elevation right hemidiaphragm
Cardiology evaluation ongoing-correspondence reviewed.
Diuresis as tolerated-especially in light of right heart catheterization findings
Monitor renal function, electrolytes, weight, and lower extremity edema.
Replacement electrolytes as needed.
Continues with anticoagulation-on Eliquis
Atrial fibrillation rate control
Right and left heart catheterization 05/24/24-RA 17, PA 65, PCWP-26, 70% distal LAD lesion with successful IFR of the 70% proximal/mid RCA lesion-lesion was determined to be nonocclusive-no intervention performed
DVT prophylaxis-on Eliquis
GI prophylaxis-on pantoprazole
Likely will be discharged temporary SNF rehab prior to going back to his apartment-patient somewhat reluctant and wants to stay to see Dr. Rivas - explained he is ICU doc and if patient still here Friday he will see him
Reviewed with nursing as well as case management
Outpatient pulmonary [id number]-last seen 01/08/24-no-show April 2024-needs follow-up with PFTs, BiPAP compliance
Diagnostic Data
Chest X-Ray: 05/21/24- Low lung volumes. No active pulmonary process.
CT Scan: CHEST 05/22/24- No CT evidence for an acute cardiopulmonary process. Low lung volumes with scattered mild bilateral subsegmental atelectasis. Moderate elevation of the right hemidiaphragm.
LE duplex 05/21/24- No evidence of deep venous thrombosis bilaterally.
Echo: 05/17/24- LV size and function with no regional wall motion abnormality. LVEF is approximately 60 to 65% by Villalpando's method of discs. Mild concentric LVH. Normal right ventricular size and function. No significant valvular disease. Compared
to prior from November 28, 2023, overall LV function is normal 60-65% previously low normal at approximately 50%.
[place] 05/21/24- FEV1 1.0L 31%, FVC 1.37L 32%, ratio 73. Post FEV1 1.02L 32% no BD response
Reports and relevant images were personally reviewed.
Subjective Data
-
Date of Service:
Date of Service: May 28, 2024
Chief Complaint: Pulmonary Follow Up and Dyspnea Follow Up
Subjective:
Still feels like he has some wheezing, no chest pain, minimal productive cough, no abdominal pain, wants to stay till Friday
Review of Systems
General: Other (Per HPI)
Objective Data
Data Reviewed
Vital Signs / I&O:
Vital Signs
Temp Pulse Resp BP Pulse Ox
97.7 F 67 18 148/69 95
05/28/24 07:00 05/28/24 09:28 05/28/24 07:49 05/28/24 09:28 05/28/24 07:49
Intake and Output
05/27/24 05/28/24 05/29/24
06:59 06:59 06:59
Intake Total 840 / 840 1140 / 1140
Balance 840 / 840 1140 / 1140
SaO2: 95
Nasal Cannula flow liters per minute: 1.5
Physical Exam
General: Respiratory Distress (n), Comfortable and Other (NAD, obese)
HEENT: Normocephalic, Anicteric and Moist Mucous Membranes
Cardiovascular: Regular Rhythm and Peripheral Edema (trace)
Respiratory: Wheeze (n), Crackles ( rare basilar), Rhonchi, Non-Labored Respirations, Accessory Resp Muscle Use (n) and Stridor (n)
GI: Soft, Non Distended and Non Tender
Neurology: Awake, Alert, Oriented, AO x 3 and No Motor Deficits
Skin: Warm, Good Color, Cyanosis (n), Jaundice (n) and Rash (n)
Labs/Micro/Reports
Lab Data
05/27/24 06:00
05/27/24 06:00
[2024-05-28 10:34] LABS: COVID-19 Antigen Positive (Negative)
--- NOTE | 2024-05-28 11:01 | CM ---
Chart reviewed and caser up spoke with patient and physician, per patient he does not want to go to a skilled facility as he just left [facility], patient wants to return to home with caregivers, per sister caregivers will be
contacted when she returns. Patient resides at [facility]. Physical therapy are recommending skilled and referrals were sent to [facility], [facility] and [facility]. Per [facility] patient's insurance is out of network
and they cannot accept, same with [facility] they cannot accept patient's insurance. [facility] will not accept patient. Per admissions [facility] will accept patient.
Plan; Kathy want's to return to home with caregivers and VN.
[2024-05-28 11:37] LABS: Glucose - Point of Care 219 mg/dl (70-99)
--- NOTE | 2024-05-28 13:17 | W.PN.HOSP.TC ---
Today's Communication/Plan
-
ID for newly positive COVID-19
Assessment / Plan
Assessment / Plan
73yo M with PMHx of EARL, HFpEF, CAD, persistent Afib on eliquis, HTN, HLD, DM, wheelchair dependent 2/2 morbid obesity came with chest pain and discomfort, managed for CHF exacerbation, cardiac cath done on 05/24/24 Lasix switched to PO on the same
date by Cardio due to non-obstructive disease, however no significant weight loss and dyspnea still persists, so diuretics to be adjusted. Due to lack of home support and poor ambulatory performance will need to start with STR.
Most likely patient has multifactorial SOB with CHF, recent pneumonia and restrictive lung disease combination
After roommate tested positive for COVID-19 - patient also was found positive on 05/28/24
A/P:
#COVID-19
Without pneumonia or hypoxia'
follow inflammatory markers
ID for assistance for treatment options as multiple interactions between Paxilovid and patient current meds
No indication for steroids
Monitor for hypoxia
#Acute on chronic HFpEF exacerbation - resolved
#Non-ischemic myocardial injury
#Hx of CAD
#persistent Afib s/p PPM
Daily weight, lasix, follow electrolytes
Echo repeated: preserved EF with pulmonary HTN
Cardiology follows: L and R heart cath for 05/24/24
Cont Eliquis (held for cardiac cath), rate control and telemetry
#Mild anemia
#Recurrent mild thrombocytopenia
Follow CBC
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
follow Cr
#Cough
most likely bronchitis
repeat XR
doxy empirically for immunomodulatory and antiinflammatory properties
#R hemidiaphragm elevation
#Restrictive lung disease
#EARL
Pulm follows
cont CPAP
#Small R nephrolithiasis
#R adrenal adenoma
outpatient w/u for hormonal secretion and MRI recommended
#DM type 2 with nephropathy
Insulin SS, DM diet, AccuCheck
#HLD
#Anxiety d/o
#Morbid obesity with BMI
cont home meds
advise to decrease calorie intake
DVT ppx Eliquis
Full code
I have spent at least 57min reviewing chart,test results, direct patient care and detailed discussion with family
Anticipated Discharge: 24 - 48 hours
Subjective/Interval History
-
Date of Service: May 28, 2024
Objective Data
-
Vital Signs:
Vital Signs
Temp Pulse Resp BP Pulse Ox
97.7 F 67 18 148/69 94
05/28/24 07:00 05/28/24 09:28 05/28/24 07:49 05/28/24 09:28 05/28/24 11:41
I&O
05/27/24 05/28/24 05/29/24
06:59 06:59 06:59
Intake Total 840 / 840 1140 / 1140
Balance 840 / 840 1140 / 1140
Review of Systems
-
History Source: Patient
All other systems: Reviewed and negative
Physical Exam
-
General: No Apparent Distress
HEENT: Moist Mucous Membranes
Respiratory: Clear to Auscultation
Cardiac: Regular Rhythm
GI: Soft and Nondistended
Musculoskeletal: No Clubbing and No Edema
Skin: Warm
Neuro: Awake, Alert, Oriented, AO x 3 and No Motor Deficits
[2024-05-28] MEDS: DUONEB INH (14:19)
[2024-05-28] MEDS: ProAIR HFA INHALER 2 PUFF INH ×2 (15:38→19:59)
--- NOTE | 2024-05-28 15:54 | CON.ID ---
Consultation
-
Date/Time Consultation Requested: 05/28/2024 1038
Date/Time Consultation Performed: 05/28/2024 1515
Requesting Provider: Dr. Duran
Performing Provider: Dr. Garcia
Reason for Consultation: COVID-19
Chief Complaint / Past History
History of Present Illness
Wisam Connolly is a 73-year-old man being evaluated at the request of Dr. Duran regarding positive COVID testing. History is obtained from chart review, along with patient interview.
Patient initially presented to [facility] on 05/16/2024 for evaluation of chest pain following the development of chest discomfort earlier in the day with a squeezing type feeling. At that time, he reported diaphoresis, shortness of breath
and had an episode of diarrhea. He denied any fevers or chills, abdominal pain or vomiting.
Hospital course was significant for workup of this chest pain, and he was felt to have an exacerbation of CHF. During his hospital stay he has remained afebrile. He has had persistent shortness of breath, and today COVID testing was found to be
positive. Infectious Diseases is asked to comment upon any necessary therapy.
Patient reports no fevers since admission, but does have a cough. He has remained afebrile. He notes no change in shortness of breath, cough or sputum production since admission. Nursing reports that his prior roommate (who was discharged either
today or yesterday) developed fever, and was tested for COVID-19, found to be positive, prompting testing for Mr. Connolly.
Past History
Additional Past Medical History:
Sleep apnea (nocturnal BiPAP)
A-fib
CHF
COPD/asthma
CKD
Anxiety/depression
HTN
DM type II
Additional Past Surgical History:
Spinal stimulator placement
Hip fracture repair
Tonsillectomy
Allergy History:
No Known Allergies Allergy (Verified 05/16/24 18:50)
Medications Reviewed: Yes
Current Antibiotics:
Doxycycline
Social History
Tobacco: Non-Smoker
Alcohol: None
Drug: None
Personal: Single
Living: Alone
Employment: Retired
Family History
Family History: Not Pertinent
Review of Systems
Vital Signs
Temp Pulse Resp BP Pulse Ox
97.7 F 67 18 148/69 94
05/28/24 07:00 05/28/24 09:28 05/28/24 07:49 05/28/24 09:28 05/28/24 11:41
Physical Exam
Physical Exam
Constitutional: No Acute Distress, Comfortable, Chronically Ill and Obese
Eyes: No Conjunctival Hemorrhage
Cardiovascular: Regular Rate and S1/S2; Negative S3/S4
Pulmonary: Coarse and Non Labored; Negative Wheezes, Rales or Rhonchi
Gastrointestinal: Soft, Non Tender and Non Distended
Extremities: Negative Cyanosis or Erythema
Skin: Negative Rash or Jaundice
Neurological: Awake and Alert
Psychological: Calm
.
Lab / Diagnostic Study Results
05/27/24 06:00
05/27/24 06:00
Abs Immat Gran (auto) Cancelled 05/27/24 06:00
Absolute Neuts (auto) Cancelled 05/27/24 06:00
Absolute Lymphs (auto) Cancelled 05/27/24 06:00
Absolute Monos (auto) Cancelled 05/27/24 06:00
Absolute Basos (auto) Cancelled 05/27/24 06:00
Immature Gran % Cancelled 05/27/24 06:00
Neutrophils % Cancelled 05/27/24 06:00
Lymphocytes % Cancelled 05/27/24 06:00
Monocytes % Cancelled 05/27/24 06:00
Eosinophils % Cancelled 05/27/24 06:00
Basophils % Cancelled 05/27/24 06:00
Lactic Acid 0.8 mmol/L (0.7-2.0) 05/16/24 19:45
Procalcitonin 0.06 ng/ml (0.0-0.25) 05/22/24 20:37
Microbiology Results
Laboratory Tests
05/28/24
10:07
SARS-CoV-2 Antigen Positive A
Imaging:
05/25/2024 CXR (portable): Marked elevation of the right hemidiaphragm which is unchanged from prior. Heart appears mildly enlarged. Likely atelectasis in left lower lobe. No acute infiltrates noted.
Assessment / Plan
COVID-19 positive
Respiratory insufficiency
CHF exacerbation
NAOMI on CKD
Sleep apnea (nocturnal BiPAP)
A-fib
COPD/asthma
CKD
Anxiety/depression
HTN
DM type II
Recommendations:
Patient relatively asymptomatic, and it is difficult to know when he first turned positive for COVID-19. Overall shortness of breath is not appreciably changed since admission.
I have offered molnupiravir to the patient, and he is accepting. Will initiate today. Continue with COVID-19 isolation.
Monitor respiratory status.
Can likely discontinue further doxycycline.
Given normal pulse ox on room air, I am not sure of any benefit to the addition of steroids, but will defer to the Pulmonary service.
[2024-05-28 16:34] LABS: Glucose - Point of Care 144 mg/dl (70-99)
--- NOTE | 2024-05-28 18:00 | PTCARENOTE ---
Met with patient to discuss inappropriate sexual comments that he is making to staff and about staff. Also discussed inappropriate physical contact with one of the nursing staff. Enforced to patient that these comments, behaviors and physical
contact is impeding the staffs ability to provide care to him and that he is making them uncomfortable and that the behavior is to stop immediately. He initially stated 'yeah, yeah, I have had this conversation before' then he stated ' I guess they
can't keep secrets and have to tell you everything'. He denied physical contact and accused this designer/writer of 'slander'. I asked him if he understood what I was saying and again enforced that he may not make any comments to any staff, male or female to
or about other staff inappropriately. All conversations and behaviors are to be professional and appropriate for patient and caregiver. He stated 'then I want all men to care for me'.
[2024-05-28] MEDS: MOLNUPIRAVIR (EUA) 800 MG PO (18:31)
[2024-05-28] MEDS: LIPITOR 10 MG PO (20:33)
[2024-05-28] MEDS: HYCODAN SYRUP 5 ML PO (20:33)
[2024-05-28 21:14] LABS: Glucose - Point of Care 175 mg/dl (70-99)
[2024-05-28] MEDS: LANTUS 0.15 UNITS SC (21:26)
[2024-05-29 03:45] VITALS: PULSE 2; PULSE 68
[2024-05-29 06:00] VITALS: BMI 34.7
[2024-05-29 07:00] VITALS: BP 112/74
[2024-05-29 07:13] LABS: % Basophils 0.6 % (0-2); % Eosinophils 2.7 % (0-6); % Lymphocytes 38.9 % (20.5-51.1); % Monocytes 7.3 % (1.7-9.3); % Neutrophils 49.5 % (42.2-75.2); Absolute Eosinophils 0.1 10^3/uL (0-0.7); Absolute Immature Granulocytes 0.1 10^3/uL (0-0.05); Absolute Monocytes 0.4 10^3/uL (0.1-0.6); Absolute Neutrophils 2.6 10^3/uL (1.4-6.5); Hematocrit 30.8 % (39.0-52.0); Hemoglobin 10.3 g/dL (13.0-18.0); Mean Corp Hgb Conc. 33.4 g/dL (33.0-37.0); Mean Corpuscular Volume 89.8 fL (80.0-94.0); Mean Platelet Volume 12.8 fL (7.4-10.4); Nucleated Red Blood Cells % 0 % (-); Platelet Count 115 10^3/uL (130-400); Red Blood Cell Count 3.43 10^6/uL (4.70-6.10); White Blood Cell Count 5.2 10^3/uL (4.8-10.8)
[2024-05-29] MEDS: SPIRIVA RESPIMAT 2.5 MCG 2 PUFF INH (07:30)
[2024-05-29] MEDS: ProAIR HFA INHALER 2 PUFF INH ×4 (07:31→20:09)
[2024-05-29 07:45] LABS: ALT (SGPT) 37 U/L (0-50); AST (SGOT) 33 U/L (17-59); Albumin 3.5 g/dl (3.5-5.0); Alkaline Phosphatase 59 U/L (38-126); Blood Urea Nitrogen 43 mg/dl (9-20); Calcium 8.9 mg/dl (8.4-10.2); Carbon Dioxide 33 mmol/L (22-30); Chloride 103 mmol/L (98-107); Estimated Creatinine Clearance 52 ml/min; Glucose 79 mg/dl (70-99); Potassium 4.2 mmol/L (3.5-5.1); Sodium 144 mmol/L (135-145); Total Bilirubin 0.6 mg/dl (0.2-1.3); Total Protein 6.3 g/dl (6.3-8.2); eGFR 44.65
[2024-05-29 07:50] LABS: C-Reactive Protein < 5.00 mg/L (0.0-10.00)
[2024-05-29 07:57] LABS: Erythrocyte Sed Rate 36 mm/hour (0-20)
[2024-05-29 08:02] LABS: Glucose - Point of Care 89 mg/dl (70-99)
[2024-05-29] MEDS: COREG 12.5 MG PO ×2 (09:24→19:54)
[2024-05-29] MEDS: LEXAPRO 20 MG PO (09:24)
[2024-05-29] MEDS: PROTONIX 40 MG PO (09:25)
[2024-05-29] MEDS: NEURONTIN 300 MG PO ×2 (09:25→19:54)
[2024-05-29] MEDS: COZAAR 100 MG PO (09:26)
[2024-05-29] MEDS: BUSPAR 10 MG PO ×2 (09:26→19:54)
[2024-05-29] MEDS: LASIX 80 MG PO (09:26)
[2024-05-29] MEDS: ELIQUIS 5 MG PO ×2 (09:27→19:54)
[2024-05-29] MEDS: MIRALAX 17 GRAMS PO (09:27)
[2024-05-29] MEDS: JARDIANCE 10 MG PO (09:27)
[2024-05-29] MEDS: NOVOLOG FLEXPEN SC (09:35)
[2024-05-29] MEDS: TYLENOL 650 MG PO (09:58)
[2024-05-29] MEDS: VIBRAMYCIN PO (09:58)
[2024-05-29] MEDS: MUCINEX PO (09:58)
[2024-05-29] MEDS: ROBITUSSIN DM 10 ML PO (09:58)
[2024-05-29] MEDS: MOLNUPIRAVIR (EUA) 800 MG PO ×2 (09:59→19:54)
--- NOTE | 2024-05-29 11:07 | W.PN.PUL3 ---
Today's Communication / Plan
-
Symbicort and spiriva
Start prednisone taper
Molnupiravir as per ID
Goal SpO2 88-95%
Mucinex
Gentle diuresis
PT rec'd skilled rehab
Outpatient follow up with Dr. Rivas s/p discharge
Assessment
-
73-year-old male with complex medical history, sleep apnea obesity hypoventilation on nocturnal BiPAP, history of atrial fibrillation, heart failure, bilateral pneumonia November 2023, presents with worsening shortness of breath. Thought to be in
heart failure, diuresed aggressively since hospital stay, weight down 4 kg. Patient with persistent shortness of breath. We are asked to comment on pulmonary process 05/21/2024
Impression:
Acute hypoxic respiratory insufficiency
Admission saturation 94% on room air
COVID-19 pneumonia
Suspected congestive heart failure
Diastolic dysfunction, normal EF
Elevated proBNP, now improved
Acute renal insufficiency, creatinine 1.6
Likely in the setting of diuresis, admission creatinine 1.3
Anemia
Elevated right hemidiaphragm, chronic since 2019
Recent bilateral pneumonia November 2023
SOB, multifactorial likely due to COPD/asthma exacerbation in the setting of COVID-19 pneumonia infection
Restrictive lung disease likely related to body habitus
Obesity BMI 34
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
COPD/asthma
Chronic allergic conjunctivitis
EARL on BiPAP
CKD
Depression/Anxiety disorder
History of retroperitoneal hematoma c/b hemorrhagic shock (06/2023)
Right adrenal mass stable compared to June 2023
Recurrent falls/ambulatory dysfunction
Chronic A-fib on Eliquis
Hypertension/hyperlipidemia
DM type II
Third-degree heart block s/p PPM
Chronic constipation
Cholelithiasis
Spinal stimulator, history of laminectomy
Plan
Pulmonary condition continues to be stable, and he is on room air breathing comfortably currently, although still has cough with productive phlegm and shortness of breath with activity
Keep SpO2 88-95%
Assess discharge supplemental oxygen needs prior to discharge via ambulatory pulse oximetry
BiPAP at 16/8cmH2O at with sleep
Aspiration precautions-speech therapy followed patient
Currently on inhalers- start Symbicort and continue Spiriva; unable to do nebs given recent Dx of Covid-19
Mucinex 1200 mg twice daily
Start prednisone taper
ID consulted given recent diagnosis of COVID-19
- Continue with molnupiravir
Cardiology evaluation ongoing-correspondence reviewed.
Diuresis as tolerated-especially in light of right heart catheterization findings showing PCWP: 25mmHg with PVR 2.7, TP (indicating pre and post capillary PH)
Monitor renal function, electrolytes, weight, and lower extremity edema.
Replacement electrolytes as needed.
Continues with anticoagulation-on Eliquis
Atrial fibrillation rate control
Right and left heart catheterization 05/24/24-RA 17, PA 65, PCWP-26, 70% distal LAD lesion with successful IFR of the 70% proximal/mid RCA lesion-lesion was determined to be nonocclusive-no intervention performed
DVT prophylaxis-on Eliquis
GI prophylaxis-on pantoprazole
Likely will be discharged temporary SNF rehab prior to going back to his apartment-patient somewhat reluctant and wants to stay to see Dr. Rivas - explained he is ICU doc and if patient still here Friday he will see him
Reviewed with nursing as well as case management
Outpatient pulmonary [id number]. Figueroa-last seen 01/08/24-no-show April 2024-needs follow-up with PFTs, BiPAP compliance
Pulmonary service will continue to follow along while patient remains hospitalized.
Total time spent today was 35 minutes for this encounter. Time includes reviewing laboratory test/imaging results, reviewing pertinent medical records, obtaining and reviewing medical history, performing an appropriate exam, ordering medications,
tests and procedures. Time also includes documentation of this encounter, coordinating patient care and communicating with other healthcare professionals. Total time does not include separately billed tests performed on this date of service.
Diagnostic Data
Chest X-Ray: 05/21/24- Low lung volumes. No active pulmonary process.
CT Scan: CHEST 05/22/24- No CT evidence for an acute cardiopulmonary process. Low lung volumes with scattered mild bilateral subsegmental atelectasis. Moderate elevation of the right hemidiaphragm.
LE duplex 05/21/24- No evidence of deep venous thrombosis bilaterally.
Echo: 05/17/24- LV size and function with no regional wall motion abnormality. LVEF is approximately 60 to 65% by Villalpando's method of discs. Mild concentric LVH. Normal right ventricular size and function. No significant valvular disease. Compared
to prior from November 28, 2023, overall LV function is normal 60-65% previously low normal at approximately 50%.
[place] 05/21/24- FEV1 1.0L 31%, FVC 1.37L 32%, ratio 73. Post FEV1 1.02L 32% no BD response
Reports and relevant images were personally reviewed.
Subjective Data
-
Date of Service:
Date of Service: May 29, 2024
Chief Complaint: Pulmonary Follow Up and Dyspnea Follow Up
Subjective:
Seen and evaluated today. Has a barking cough with mucus production; still feels chest heaviness. Wore BiPAP overnight on 21/05. He denies MALDONADO, abdominal pain, fevers or chills.
Review of Systems
General: Other (Negative unless mentioned above)
Objective Data
Data Reviewed
Vital Signs / I&O / Oxygen:
Vital Signs
Temp Pulse Resp BP Pulse Ox
98.2 F 53 18 112/74 96
05/29/24 07:00 05/29/24 09:26 05/29/24 07:41 05/29/24 09:26 05/29/24 07:41
Intake and Output
05/28/24 05/29/24 05/30/24
06:59 06:59 06:59
Intake Total 1140 / 1140 1620 / 1620
Balance 1140 / 1140 1620 / 1620
SaO2 96
Nasal Cannula flow liters per 1.5
minute
Physical Exam
General: Respiratory Distress (n), Comfortable and Other (NAD, obese)
HEENT: Normocephalic, Anicteric and Moist Mucous Membranes
Cardiovascular: S1-S2 and Peripheral Edema (trace)
Respiratory: Wheeze (n), Crackles ( rare basilar), Non-Labored Respirations, Accessory Resp Muscle Use (n), Stridor (n) and Other (Coarse BS bilaterally)
GI: Soft, Distended (Abdominal obesity), Non Tender and Normal Bowel Sounds
Neurology: AO x 3 and Tremors (n)
Skin: Warm, Dry, Cyanosis (n), Jaundice (n) and Rash (n)
Labs/Micro/Reports
Lab Data
05/29/24 06:48
05/29/24 06:48
[2024-05-29 11:33] LABS: Glucose - Point of Care 162 mg/dl (70-99)
[2024-05-29] MEDS: MYCOSTATIN ORAL SUSPENSION 5 ML PO ×3 (12:23→21:03)
--- NOTE | 2024-05-29 13:11 | W.PN.HOSP.TC ---
Today's Communication/Plan
-
COnt diuresis
start Robitussin
If cough worsens - repeat imaging
watch for hypoxia
CM cont attempts to place
Assessment / Plan
Assessment / Plan
73yo M with PMHx of EARL, HFpEF, CAD, persistent Afib on eliquis, HTN, HLD, DM, wheelchair dependent 2/2 morbid obesity came with chest pain and discomfort, managed for CHF exacerbation, cardiac cath done on 05/24/24 Lasix switched to PO on the same
date by Cardio due to non-obstructive disease, however no significant weight loss and dyspnea still persists, so diuretics to be adjusted. Due to lack of home support and poor ambulatory performance will need to start with STR.
Most likely patient has multifactorial SOB with CHF, recent pneumonia and restrictive lung disease combination
After roommate tested positive for COVID-19 - patient also was found positive on 05/28/24. molnupiravir started by ID
A/P:
#COVID-19
Without pneumonia or hypoxia'
follow inflammatory markers
ID started molnupiravir
No indication for steroids
Monitor for hypoxia
#Acute on chronic HFpEF exacerbation - resolved
#Non-ischemic myocardial injury
#Hx of CAD
#persistent Afib s/p PPM
Daily weight, lasix, follow electrolytes
Echo repeated: preserved EF with pulmonary HTN
Cardiology follows: L and R heart cath for 05/24/24
Cont Eliquis (held for cardiac cath), rate control and telemetry
#Mild anemia
#Recurrent mild thrombocytopenia
Follow CBC
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
follow Cr
#Cough
most likely bronchitis
repeat XR
doxy empirically for immunomodulatory and antiinflammatory properties
#R hemidiaphragm elevation
#Restrictive lung disease
#EARL
Pulm follows
cont CPAP
#Small R nephrolithiasis
#R adrenal adenoma
outpatient w/u for hormonal secretion and MRI recommended
#DM type 2 with nephropathy
Insulin SS, DM diet, AccuCheck
#HLD
#Anxiety d/o
#Morbid obesity with BMI
cont home meds
advise to decrease calorie intake
DVT ppx Eliquis
Full code
I have spent at least 57min reviewing chart,test results, direct patient care and detailed discussion with family
Anticipated Discharge: 24 - 48 hours
Subjective/Interval History
-
Date of Service: May 29, 2024
Objective Data
-
Labs:
Laboratory Results
05/29/24
06:48
WBC 5.2
Hgb 10.3 L
Hct 30.8 L
Plt Count 115 L
Sodium 144 D
Potassium 4.2
Chloride 103
Carbon Dioxide 33 H
BUN 43 H
Creatinine 1.6 H
Glucose 79
Calcium 8.9
Total Bilirubin 0.6
AST 33
ALT 37
Alkaline Phosphatase 59
Vital Signs:
Vital Signs
Temp Pulse Resp BP Pulse Ox
98.2 F 53 18 112/74 96
05/29/24 07:00 05/29/24 09:26 05/29/24 07:41 05/29/24 09:26 05/29/24 07:41
I&O
05/28/24 05/29/24 05/30/24
06:59 06:59 06:59
Intake Total 1140 / 1140 1620 / 1620
Balance 1140 / 1140 1620 / 1620
Review of Systems
-
History Source: Patient
All other systems: Reviewed and negative
Respiratory: Reports Cough
Physical Exam
-
General: No Apparent Distress
HEENT: Normocephalic and Atraumatic
Respiratory: Clear to Auscultation
Cardiac: Regular Rhythm
GI: Soft, Nontender and Nondistended
Genito-urinary: No Costovertebral Tender
Musculoskeletal: No Clubbing, No Cyanosis and No Edema
Neuro: Awake, Alert, Oriented and AO x 3
Psych: Calm
[2024-05-29] MEDS: NOVOLOG FLEXPEN 2 UNITS SC ×2 (13:15→18:11)
[2024-05-29 15:31] VITALS: BP 118/64
[2024-05-29 16:55] LABS: Glucose - Point of Care 122 mg/dl (70-99)
[2024-05-29 19:50] VITALS: BP 140/65
[2024-05-29] MEDS: MUCINEX 1200 MG PO (21:03)
[2024-05-29] MEDS: DELTASONE 50 MG PO (21:03)
[2024-05-29] MEDS: LIPITOR 10 MG PO (21:03)
[2024-05-29] MEDS: LANTUS 0.15 UNITS SC (21:03)
[2024-05-29 21:13] LABS: Glucose - Point of Care 203 mg/dl (70-99)
[2024-05-29 23:00] VITALS: BP 135/59
[2024-05-29 23:35] VITALS: PULSE 2; PULSE 70
[2024-05-30 02:27] VITALS: PULSE 2
[2024-05-30 06:00] VITALS: BMI 34.5
[2024-05-30 07:05] VITALS: BP 181/89
[2024-05-30] MEDS: ProAIR HFA INHALER 2 PUFF INH ×4 (07:19→20:25)
[2024-05-30] MEDS: SYMBICORT 160/4.5 MCG INHALER 2 PUFF INH ×2 (07:20→20:25)
[2024-05-30] MEDS: ROBITUSSIN DM 10 ML PO (07:28)
[2024-05-30 07:36] LABS: Glucose - Point of Care 186 mg/dl (70-99)
[2024-05-30] MEDS: SPIRIVA RESPIMAT 2.5 MCG 2 PUFF INH (08:00)
[2024-05-30] MEDS: MUCINEX 1200 MG PO ×2 (10:26→19:36)
[2024-05-30] MEDS: PROTONIX 40 MG PO (10:26)
[2024-05-30] MEDS: DELTASONE 50 MG PO (10:26)
[2024-05-30] MEDS: NEURONTIN 300 MG PO ×2 (10:26→19:36)
[2024-05-30] MEDS: MYCOSTATIN ORAL SUSPENSION 5 ML PO ×4 (10:26→21:32)
[2024-05-30] MEDS: LASIX 80 MG PO (10:27)
[2024-05-30] MEDS: ELIQUIS 5 MG PO ×2 (10:27→19:37)
[2024-05-30] MEDS: BUSPAR 10 MG PO ×2 (10:27→19:36)
[2024-05-30] MEDS: JARDIANCE 10 MG PO (10:28)
[2024-05-30] MEDS: LEXAPRO 20 MG PO (10:28)
[2024-05-30] MEDS: NOVOLOG FLEXPEN 2 UNITS SC ×3 (10:29→17:19)
[2024-05-30] MEDS: COZAAR 100 MG PO (10:29)
[2024-05-30] MEDS: COREG 12.5 MG PO ×2 (10:29→19:37)
[2024-05-30] MEDS: MIRALAX 17 GRAMS PO (10:32)
[2024-05-30] MEDS: MOLNUPIRAVIR (EUA) 800 MG PO ×2 (10:38→19:36)
--- NOTE | 2024-05-30 10:46 | W.PN.PUL3 ---
Today's Communication / Plan
-
Symbicort and spiriva
Continue prednisone taper
Molnupiravir as per ID
Goal SpO2 88-95%
Mucinex
Gentle diuresis
PT rec'd skilled rehab
Outpatient follow up with Dr. Rivas s/p discharge
Assessment
-
73-year-old male with complex medical history, sleep apnea obesity hypoventilation on nocturnal BiPAP, history of atrial fibrillation, heart failure, bilateral pneumonia November 2023, presents with worsening shortness of breath. Thought to be in
heart failure, diuresed aggressively since hospital stay, weight down 4 kg. Patient with persistent shortness of breath. We are asked to comment on pulmonary process 05/21/2024
Impression:
Acute hypoxic respiratory insufficiency
Admission saturation 94% on room air
COVID-19 pneumonia
Suspected congestive heart failure
Diastolic dysfunction, normal EF
Elevated proBNP, now improved
Acute renal insufficiency, creatinine 1.6
Likely in the setting of diuresis, admission creatinine 1.3
Anemia
Elevated right hemidiaphragm, chronic since 2019
Recent bilateral pneumonia November 2023
SOB, multifactorial likely due to COPD/asthma exacerbation in the setting of COVID-19 pneumonia infection
Restrictive lung disease likely related to body habitus
Obesity BMI 34
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
COPD/asthma
Chronic allergic conjunctivitis
EARL on BiPAP
CKD
Depression/Anxiety disorder
History of retroperitoneal hematoma c/b hemorrhagic shock (06/2023)
Right adrenal mass stable compared to June 2023
Recurrent falls/ambulatory dysfunction
Chronic A-fib on Eliquis
Hypertension/hyperlipidemia
DM type II
Third-degree heart block s/p PPM
Chronic constipation
Cholelithiasis
Spinal stimulator, history of laminectomy
Plan
Pulmonary condition continues to be stable, and he is on room air breathing comfortably currently, although still has cough with productive phlegm and shortness of breath with activity
Keep SpO2 88-95%
Assess discharge supplemental oxygen needs prior to discharge via ambulatory pulse oximetry
BiPAP at 16/8cmH2O at with sleep
Aspiration precautions-speech therapy followed patient
Currently on inhalers- continue Symbicort and Spiriva; unable to do nebs given recent Dx of Covid-19
Mucinex 1200 mg twice daily
Continue prednisone taper
ID consulted given recent diagnosis of COVID-19
- Continue with molnupiravir
Cardiology evaluation ongoing-correspondence reviewed.
Diuresis as tolerated-especially in light of right heart catheterization findings showing PCWP: 25mmHg with PVR 2.7, TP (indicating pre and post capillary PH)
Monitor renal function, electrolytes, weight, and lower extremity edema.
Replacement electrolytes as needed.
Continues with anticoagulation-on Eliquis
Atrial fibrillation rate control
Right and left heart catheterization 05/24/24-RA 17, PA 65, PCWP-26, 70% distal LAD lesion with successful IFR of the 70% proximal/mid RCA lesion-lesion was determined to be nonocclusive-no intervention performed
DVT prophylaxis-on Eliquis
GI prophylaxis-on pantoprazole
Likely will be discharged to temporary SNF rehab prior to going back to his apartment-patient somewhat reluctant.
Reviewed with nursing as well as case management
Outpatient pulmonary [id number]. Figueroa-last seen 01/08/24-no-show April 2024-needs follow-up with PFTs, BiPAP compliance
Pulmonary service will continue to follow along while patient remains hospitalized.
Total time spent today was 35 minutes for this encounter. Time includes reviewing laboratory test/imaging results, reviewing pertinent medical records, obtaining and reviewing medical history, performing an appropriate exam, ordering medications,
tests and procedures. Time also includes documentation of this encounter, coordinating patient care and communicating with other healthcare professionals. Total time does not include separately billed tests performed on this date of service.
Diagnostic Data
Chest X-Ray: 05/21/24- Low lung volumes. No active pulmonary process.
CT Scan: CHEST 05/22/24- No CT evidence for an acute cardiopulmonary process. Low lung volumes with scattered mild bilateral subsegmental atelectasis. Moderate elevation of the right hemidiaphragm.
LE duplex 05/21/24- No evidence of deep venous thrombosis bilaterally.
Echo: 05/17/24- LV size and function with no regional wall motion abnormality. LVEF is approximately 60 to 65% by Villalpando's method of discs. Mild concentric LVH. Normal right ventricular size and function. No significant valvular disease. Compared
to prior from November 28, 2023, overall LV function is normal 60-65% previously low normal at approximately 50%.
[place] 05/21/24- FEV1 1.0L 31%, FVC 1.37L 32%, ratio 73. Post FEV1 1.02L 32% no BD response
Reports and relevant images were personally reviewed.
Subjective Data
-
Date of Service:
Date of Service: May 30, 2024
Chief Complaint: Pulmonary Follow Up and Dyspnea Follow Up
Subjective:
Seen and evaluated today at bedside. Sleeping in no acute distress. Easily arousable and answering questions appropriately. Wore BiPAP overnight on 21/05. On room air breathing comfortably, saturating 96%. Afebrile overnight. Still has cough,
denies chest pain. Also denies MALDONADO, abdominal pain, fevers or chills.
Review of Systems
General: Other (Negative unless mentioned above)
Objective Data
Data Reviewed
Vital Signs / I&O / Oxygen:
Vital Signs
Temp Pulse Resp BP Pulse Ox
98.1 F 60 16 181/89 96
05/30/24 07:05 05/30/24 10:27 05/30/24 07:28 05/30/24 10:27 05/30/24 07:28
Intake and Output
05/29/24 05/30/24 05/31/24
06:59 06:59 06:59
Intake Total 1620 / 1620 1080 / 1080 480 / 480
Balance 1620 / 1620 1080 / 1080 480 / 480
SaO2 96
Nasal Cannula flow liters per 1.5
minute
Physical Exam
General: Respiratory Distress (n), Comfortable and Other (NAD, obese)
HEENT: Normocephalic, Anicteric and Moist Mucous Membranes
Cardiovascular: S1-S2 and Peripheral Edema (trace)
Respiratory: Wheeze (n), Crackles (Rare basilar), Non-Labored Respirations, Accessory Resp Muscle Use (n), Stridor (n) and Other (Coarse BS bilaterally)
GI: Soft, Distended (Abdominal obesity), Non Tender and Normal Bowel Sounds
Neurology: AO x 3 and Tremors (n)
Skin: Warm, Dry, Cyanosis (n), Jaundice (n) and Rash (n)
[2024-05-30 11:09] LABS: ALT (SGPT) 35 U/L (0-50); AST (SGOT) 30 U/L (17-59); Albumin 4.2 g/dl (3.5-5.0); Alkaline Phosphatase 64 U/L (38-126); Blood Urea Nitrogen 41 mg/dl (9-20); Calcium 9.5 mg/dl (8.4-10.2); Carbon Dioxide 28 mmol/L (22-30); Chloride 102 mmol/L (98-107); Estimated Creatinine Clearance 60 ml/min; Glucose 189 mg/dl (70-99); Potassium 4.9 mmol/L (3.5-5.1); Sodium 140 mmol/L (135-145); Total Bilirubin 0.8 mg/dl (0.2-1.3); eGFR 52.41
[2024-05-30 11:16] LABS: Hematocrit 33.9 % (39.0-52.0); Hemoglobin 12.3 g/dL (13.0-18.0); Mean Corp Hgb Conc. 36.3 g/dL (33.0-37.0); Mean Corpuscular Volume 85.4 fL (80.0-94.0); Mean Platelet Volume 12.4 fL (7.4-10.4); Platelet Count 134 10^3/uL (130-400); Red Blood Cell Count 3.97 10^6/uL (4.70-6.10); Red Cell Dist. Width 13.6 % (11.5-14.5); White Blood Cell Count 5.5 10^3/uL (4.8-10.8)
[2024-05-30 11:21] LABS: Procalcitonin < 0.05 ng/ml (0.0-0.25)
[2024-05-30 11:41] LABS: % Basophils 0.4 % (0-2); % Immature Granulocytes 2.2 % (0-0.5); % Lymphocytes 13.5 % (20.5-51.1); % Monocytes 1.6 % (1.7-9.3); % Neutrophils 82.3 % (42.2-75.2); Absolute Immature Granulocytes 0.1 10^3/uL (0-0.05); Absolute Lymphocytes 0.7 10^3/uL (1.2-3.4); Absolute Monocytes 0.1 10^3/uL (0.1-0.6); Absolute Neutrophils 4.5 10^3/uL (1.4-6.5); Nucleated Red Blood Cells % 0 % (-)
[2024-05-30 12:14] LABS: Glucose - Point of Care 244 mg/dl (70-99)
[2024-05-30] MEDS: REFRESH EYE DROPS (PF) 1 DROPS BOTH EYES (12:25)
--- NOTE | 2024-05-30 12:51 | W.PN.HOSP.TC ---
Today's Communication/Plan
-
staroid taper and CM for d/c - still attempting STR placement
Assessment / Plan
Assessment / Plan
73yo M with PMHx of EARL, HFpEF, CAD, persistent Afib on eliquis, HTN, HLD, DM, wheelchair dependent 2/2 morbid obesity came with chest pain and discomfort, managed for CHF exacerbation, cardiac cath done on 05/24/24 Lasix switched to PO on the same
date by Cardio due to non-obstructive disease, however no significant weight loss and dyspnea still persists, so diuretics to be adjusted. Due to lack of home support and poor ambulatory performance will need to start with STR.
Most likely patient has multifactorial SOB with CHF, recent pneumonia and restrictive lung disease combination
After roommate tested positive for COVID-19 - patient also was found positive on 05/28/24. molnupiravir started by ID
A/P:
#COVID-19
Without pneumonia or hypoxia
follow inflammatory markers - no significant elevation, Procalcitonin WNL
ID started molnupiravir
Monitor for hypoxia
#Acute on chronic HFpEF exacerbation - resolved
#Non-ischemic myocardial injury
#Hx of CAD
#persistent Afib s/p PPM
Daily weight, lasix, follow electrolytes
Echo repeated: preserved EF with pulmonary HTN
Cardiology follows: L and R heart cath for 05/24/24
Cont Eliquis (held for cardiac cath), rate control and telemetry
#Mild anemia
#Recurrent mild thrombocytopenia
Follow CBC
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
follow Cr
#Cough
most likely bronchitis
repeat XR
doxy empirically for immunomodulatory and antiinflammatory properties
#R hemidiaphragm elevation
#Restrictive lung disease
#EARL
Pulm follows: started steroid taper
cont CPAP
#Small R nephrolithiasis
#R adrenal adenoma
outpatient w/u for hormonal secretion and MRI recommended
#DM type 2 with nephropathy
Insulin SS, DM diet, AccuCheck
#HLD
#Anxiety d/o
#Morbid obesity with BMI
cont home meds
advise to decrease calorie intake
DVT ppx Eliquis
Full code
I have spent at least 57min reviewing chart,test results, direct patient care and detailed discussion with family
Anticipated Discharge: Within 24 hours
Subjective/Interval History
-
Date of Service: May 30, 2024
Objective Data
-
Labs:
Laboratory Results
05/30/24
10:39
WBC 5.5
Hgb 12.3 L
Hct 33.9 L
Plt Count 134
Sodium 140
Potassium 4.9
Chloride 102
Carbon Dioxide 28
BUN 41 H
Creatinine 1.4 H
Glucose 189 H
Calcium 9.5
Total Bilirubin 0.8
AST 30
ALT 35
Alkaline Phosphatase 64
Vital Signs:
Vital Signs
Temp Pulse Resp BP Pulse Ox
98.1 F 67 16 181/89 96
05/30/24 07:05 05/30/24 11:10 05/30/24 11:10 05/30/24 10:27 05/30/24 11:10
I&O
05/29/24 05/30/24 05/31/24
06:59 06:59 06:59
Intake Total 1620 / 1620 1080 / 1080 480 / 480
Balance 1620 / 1620 1080 / 1080 480 / 480
Review of Systems
-
History Source: Patient
All other systems: Reviewed and negative
Physical Exam
-
General: Well Developed
HEENT: Normocephalic and Atraumatic
Respiratory: Clear to Auscultation
Cardiac: Regular Rhythm
GI: Soft, Nontender and Nondistended
Musculoskeletal: No Clubbing, No Cyanosis and No Edema
Neuro: Awake, Alert, Oriented and AO x 3
Psych: Calm
[2024-05-30 15:05] VITALS: BP 145/59
[2024-05-30 16:40] LABS: Glucose - Point of Care 272 mg/dl (70-99)
[2024-05-30 19:30] VITALS: BP 159/65
[2024-05-30 21:01] LABS: Glucose - Point of Care 280 mg/dl (70-99)
[2024-05-30] MEDS: LIPITOR 10 MG PO (21:32)
[2024-05-30] MEDS: LANTUS 0.15 UNITS SC (21:33)
[2024-05-30] MEDS: APRESOLINE 50 MG PO (22:43)
[2024-05-30 23:00] VITALS: BP 164/74
[2024-05-31] VITALS (7 sets, daily range): BP systolic 140–169; BP diastolic 59–82; PULSE 2; O2SAT 95; BMI 35.9
[2024-05-31 07:33] LABS: Glucose - Point of Care 185 mg/dl (70-99)
[2024-05-31] MEDS: MOLNUPIRAVIR (EUA) 800 MG PO ×2 (08:03→20:30)
[2024-05-31] MEDS: NOVOLOG FLEXPEN 2 UNITS SC ×3 (08:03→17:18)
[2024-05-31] MEDS: MYCOSTATIN ORAL SUSPENSION 5 ML PO ×4 (08:03→22:17)
[2024-05-31] MEDS: BUSPAR 10 MG PO ×2 (08:04→20:20)
[2024-05-31] MEDS: PROTONIX 40 MG PO (08:04)
[2024-05-31] MEDS: ELIQUIS 5 MG PO ×2 (08:04→20:20)
[2024-05-31] MEDS: JARDIANCE 10 MG PO (08:04)
[2024-05-31] MEDS: MUCINEX 1200 MG PO ×2 (08:04→20:20)
[2024-05-31] MEDS: NEURONTIN 300 MG PO ×2 (08:04→20:20)
[2024-05-31] MEDS: MIRALAX 17 GRAMS PO (08:05)
[2024-05-31] MEDS: DELTASONE 40 MG PO (08:05)
[2024-05-31] MEDS: LEXAPRO 20 MG PO (08:05)
[2024-05-31] MEDS: LASIX 80 MG PO (08:05)
[2024-05-31] MEDS: COZAAR 100 MG PO (08:06)
[2024-05-31] MEDS: COREG 12.5 MG PO ×2 (08:06→20:24)
--- NOTE | 2024-05-31 08:16 | W.PN.HOSP.TC ---
Today's Communication/Plan
-
Cleared by pulmonology for discharge today
Assessment / Plan
Assessment / Plan
73yo M with PMHx of EARL, HFpEF, CAD, persistent Afib on eliquis, HTN, HLD, DM, wheelchair dependent 2/2 morbid obesity came with chest pain and discomfort, managed for CHF exacerbation, cardiac cath done on 05/24/24 Lasix switched to PO on the same
date by Cardio due to non-obstructive disease, however no significant weight loss and dyspnea still persists, so diuretics to be adjusted. Due to lack of home support and poor ambulatory performance will need to start with STR.
Most likely patient has multifactorial SOB with CHF, recent pneumonia and restrictive lung disease combination
After roommate tested positive for COVID-19 - patient also was found positive on 05/28/24. molnupiravir started by ID
A/P:
#COVID-19
Without pneumonia or hypoxia
follow inflammatory markers - no significant elevation, Procalcitonin WNL
ID started molnupiravir through 06/01
Monitor for hypoxia
#Acute on chronic HFpEF exacerbation - resolved
#Non-ischemic myocardial injury
#Hx of CAD
#persistent Afib s/p PPM
Daily weight, lasix, follow electrolytes
Echo repeated: preserved EF with pulmonary HTN
Cardiology follows: L and R heart cath for 05/24/24 showing elevated filling pressures, pulmonary hypertension
Cardiology recommends increasing Lasix 80 mg p.o. daily, started Jardiance
Cont Eliquis, rate control and telemetry
#Mild anemia
#Recurrent mild thrombocytopenia
Follow CBC
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
follow Cr
#Cough
most likely bronchitis
repeat XR
doxy empirically for immunomodulatory and antiinflammatory properties
#R hemidiaphragm elevation
#Restrictive lung disease
#EARL
Pulm follows: started steroid taper
cont CPAP
#Small R nephrolithiasis
#R adrenal adenoma
outpatient w/u for hormonal secretion and MRI recommended
#DM type 2 with nephropathy
Insulin SS, DM diet, AccuCheck
#HLD
#Anxiety d/o
#Morbid obesity with BMI
cont home meds
advise to decrease calorie intake
DVT prophylaxis�Eliquis
Full code
Total time spent to see the patient on the floor, examine the patient, review data and lab results, discuss treatment plan with patient, nursing staff around 38 minutes.
Physical Exam
General: Morbidly obese, no acute distress
HEENT: Normocephalic, Atraumatic, EOMI, MMM
Respiratory: Diminished breath sounds at the bases
Cardiac: Normal S1/S2, Regular Rate and Rhythm
GI: Soft, Nontender, Nondistended, Normal Bowel Sounds
Extremities: No Clubbing, Cyanosis
Bilateral lower extremity edema noted
Neuro: Nonfocal/Grossly Intact
Psych: Calm, Cooperative
Anticipated Discharge: Within 24 hours
Subjective/Interval History
-
Date of Service: May 31, 2024
Patient's breathing is overall improved. No fever, no vomiting.
Objective Data
-
Vital Signs:
Vital Signs
Temp Pulse Resp BP Pulse Ox
98.3 F 88 19 169/82 95
05/31/24 07:34 05/31/24 08:06 05/31/24 07:34 05/31/24 08:06 05/31/24 07:34
I&O
05/30/24 05/31/24 06/01/24
06:59 06:59 06:59
Intake Total 1080 / 1080 720 / 720
Balance 1080 / 1080 720 / 720
[2024-05-31] MEDS: SPIRIVA RESPIMAT 2.5 MCG 2 PUFF INH (08:41)
[2024-05-31] MEDS: SYMBICORT 160/4.5 MCG INHALER 2 PUFF INH ×2 (08:41→19:22)
[2024-05-31] MEDS: ProAIR HFA INHALER 2 PUFF INH ×4 (08:41→19:21)
--- NOTE | 2024-05-31 10:32 | W.PN.PUL3 ---
Today's Communication / Plan
-
Remain stable on RA, off O2
PT/OT continued
COVID treatment/isolation, from my perspective can continue supportive care at home/quarantine per guidelines
Discharge planning per team, explained to patient appropriateness of discharge/he does not wish to leave
Further OP pulmonary FU with Dr Rivas
We will sign off at this time, please call with questions
Assessment
-
73-year-old male with complex medical history, sleep apnea obesity hypoventilation on nocturnal BiPAP, history of atrial fibrillation, heart failure, bilateral pneumonia November 2023, presents with worsening shortness of breath. Thought to be in
heart failure, diuresed aggressively since hospital stay, weight down 4 kg. Patient with persistent shortness of breath. We are asked to comment on pulmonary process 05/21/2024
Impression:
Acute hypoxic respiratory insufficiency
Admission saturation 94% on room air
COVID-19 pneumonia
Suspected congestive heart failure
Diastolic dysfunction, normal EF
Elevated proBNP, now improved
Acute renal insufficiency, creatinine 1.6
Likely in the setting of diuresis, admission creatinine 1.3
Anemia
Elevated right hemidiaphragm, chronic since 2019
Recent bilateral pneumonia November 2023
SOB, multifactorial likely due to COPD/asthma exacerbation in the setting of COVID-19 pneumonia infection
Restrictive lung disease likely related to body habitus
Obesity BMI 34
Chronic conditions TERMINAL GAUGER:
COPD/asthma
Chronic allergic conjunctivitis
EARL on BiPAP
CKD
Depression/Anxiety disorder
History of retroperitoneal hematoma c/b hemorrhagic shock (06/2023)
Right adrenal mass stable compared to June 2023
Recurrent falls/ambulatory dysfunction
Chronic A-fib on Eliquis
Hypertension/hyperlipidemia
DM type II
Third-degree heart block s/p PPM
Chronic constipation
Cholelithiasis
Spinal stimulator, history of laminectomy
Plan
Pulmonary condition continues to be stable, and he is on room air breathing comfortably currently, although still has cough with productive phlegm and shortness of breath with activity
Keep SpO2 88-95%
Assess discharge supplemental oxygen needs prior to discharge via ambulatory pulse oximetry
BiPAP at 16/8cmH2O at with sleep
Aspiration precautions-speech therapy followed patient
Currently on inhalers- continue Symbicort and Spiriva; unable to do nebs given recent Dx of Covid-19
Mucinex 1200 mg twice daily
Continue prednisone taper
ID consulted given recent diagnosis of COVID-19
Continue with molnupiravir
Cardiology evaluation ongoing-correspondence reviewed.
Diuresis as tolerated-especially in light of right heart catheterization findings showing PCWP: 25mmHg with PVR 2.7, TP (indicating pre and post capillary PH)
Monitor renal function, electrolytes, weight, and lower extremity edema.
Replacement electrolytes as needed.
Continues with anticoagulation-on Eliquis
Atrial fibrillation rate control
Right and left heart catheterization 05/24/24-RA 17, PA 65, PCWP-26, 70% distal LAD lesion with successful IFR of the 70% proximal/mid RCA lesion-lesion was determined to be nonocclusive-no intervention performed
DVT prophylaxis-on Eliquis
GI prophylaxis-on pantoprazole
Likely will be discharged to temporary SNF rehab prior to going back to his apartment-patient somewhat reluctant.
Reviewed with nursing as well as case management
Outpatient pulmonary [facility]-last seen 01/08/24-no-show April 2024-needs follow-up with PFTs, BiPAP compliance
Discharge planning per team
Diagnostic Data
Chest X-Ray: 05/21/24- Low lung volumes. No active pulmonary process.
CT Scan: CHEST 05/22/24- No CT evidence for an acute cardiopulmonary process. Low lung volumes with scattered mild bilateral subsegmental atelectasis. Moderate elevation of the right hemidiaphragm.
LE duplex 05/21/24- No evidence of deep venous thrombosis bilaterally.
Echo: 05/17/24- LV size and function with no regional wall motion abnormality. LVEF is approximately 60 to 65% by Villalpando's method of discs. Mild concentric LVH. Normal right ventricular size and function. No significant valvular disease. Compared
to prior from November 28, 2023, overall LV function is normal 60-65% previously low normal at approximately 50%.
[place] 05/21/24- FEV1 1.0L 31%, FVC 1.37L 32%, ratio 73. Post FEV1 1.02L 32% no BD response
Reports and relevant images were personally reviewed.
-----
Total time spent today was 45 minutes for this encounter. Time includes reviewing laboratory test/imaging results, reviewing pertinent medical records, obtaining and reviewing medical history, performing an appropriate exam, ordering medications,
tests and procedures. Time also includes documentation of this encounter, coordinating patient care and communicating with other healthcare professionals. Total time does not include separately billed tests performed on this date of service.
Subjective Data
-
Date of Service:
Date of Service: May 31, 2024
Chief Complaint: Pulmonary Follow Up and Dyspnea Follow Up
Subjective:
no new complaints, issues
remains stable on RA
Objective Data
Data Reviewed
Vital Signs / I&O / Oxygen:
Vital Signs
Temp Pulse Resp BP Pulse Ox
98.3 F 89 20 169/82 95
05/31/24 07:34 05/31/24 08:55 05/31/24 08:55 05/31/24 08:06 05/31/24 08:55
Intake and Output
05/30/24 05/31/24 06/01/24
06:59 06:59 06:59
Intake Total 1080 / 1080 720 / 720
Balance 1080 / 1080 720 / 720
SaO2 95
Nasal Cannula flow liters per 1.5
minute
Physical Exam
General: Respiratory Distress (n), Comfortable and Other (NAD, obese)
HEENT: Normocephalic, Anicteric and Moist Mucous Membranes
Cardiovascular: S1-S2 and Peripheral Edema (trace)
Respiratory: Clear, Wheeze (n), Non-Labored Respirations, Accessory Resp Muscle Use (n), Stridor (n) and Other (Coarse BS bilaterally)
GI: Soft, Distended (Abdominal obesity), Non Tender and Normal Bowel Sounds
Neurology: AO x 3 and Tremors (n)
Skin: Warm, Dry, Cyanosis (n), Jaundice (n) and Rash (n)
Labs/Micro/Reports
Lab Data
05/30/24 10:39
05/30/24 10:39
[2024-05-31] MEDS: REFRESH EYE DROPS (PF) 1 DROPS BOTH EYES (11:19)
[2024-05-31 11:25] LABS: Glucose - Point of Care 263 mg/dl (70-99)
--- NOTE | 2024-05-31 13:11 | CM ---
assistant community manager reached out to patient's sister who stated that patient needs to go to a skilled facility as she is unable to set up caregivers given that patient is now COVID+ options were reviewed and patient cannot go to [facility] or [facility] due
to patient's insurance, Kathy is refusing referrals to [facility] will not accept patient back, referrals sent to [facility], [facility] and will await determination.
Plan; Skilled placement.
--- NOTE | 2024-05-31 13:46 | W.PN.ID1 ---
Date of Service
Date of Service: May 31, 2024
Today's Communication
Complete current course of molnupiravir
Assessment / Plan
COVID-19 positive
Respiratory insufficiency
CHF exacerbation
NAOMI on CKD
Sleep apnea (nocturnal BiPAP)
A-fib
COPD/asthma
CKD
Anxiety/depression
HTN
DM type II
Recommendations:
Patient has overall relatively minimal COVID-19 disease symptomatology.
Complete a 5-day course of molnupiravir (on 06/02/2024)
Monitor respiratory status.
Little more to offer from a Infectious Disease standpoint at this time.
Will follow along with you peripherally while the patient remains hospitalized.
Chief Complaint
-: Other (Covid-19)
Subjective / Review of Systems
Review of Systems: No Fever, No Chills, Cough and No Sputum Production
Vital Signs / Physical Exam
Vital Signs
Vital Signs
Temp Pulse Resp BP Pulse Ox
98.3 F 57 20 153/62 95
05/31/24 07:34 05/31/24 11:35 05/31/24 08:55 05/31/24 11:35 05/31/24 08:55
Physical Exam
Constitutional: No Acute Distress, Comfortable and Non-toxic
Eyes: No Conjunctival Hemorrhage and Sclera Anicteric
Cardiovascular: Regular Rate and S1/S2; Negative S3/S4
Pulmonary: Clear and Non Labored
Neurological: Awake and Alert
Psychological: Calm
Objective Data
Lab Data
Lab Results
05/30/24 10:39
05/30/24 10:39
ESR 36 mm/hour (0-20) H 05/29/24 06:48
Estimated Creat Clear 60 ml/min 05/30/24 10:39
Lactic Acid 0.8 mmol/L (0.7-2.0) 05/16/24 19:45
Total Bilirubin 0.8 mg/dl (0.2-1.3) 05/30/24 10:39
AST 30 U/L (17-59) 05/30/24 10:39
ALT 35 U/L (0-50) 05/30/24 10:39
Alkaline Phosphatase 64 U/L (38-126) 05/30/24 10:39
C-Reactive Protein < 5.00 mg/L (0.0-10.00) 05/29/24 06:48
Most recent labs reviewed.
Laboratory Tests
05/28/24
10:07
SARS-CoV-2 Antigen Positive A
Imaging:
05/25/2024 CXR (portable): Marked elevation of the right hemidiaphragm which is unchanged from prior. Heart appears mildly enlarged. Likely atelectasis in left lower lobe. No acute infiltrates noted.
[2024-05-31 17:12] LABS: Glucose - Point of Care 277 mg/dl (70-99)
[2024-05-31 21:12] LABS: Glucose - Point of Care 299 mg/dl (70-99)
[2024-05-31] MEDS: LIPITOR 10 MG PO (22:15)
[2024-05-31] MEDS: LANTUS 0.15 UNITS SC (22:18)
[2024-06-01 00:37] VITALS: PULSE 2
[2024-06-01 05:50] VITALS: BMI 36.3
[2024-06-01 07:36] VITALS: BP 177/86
[2024-06-01] MEDS: SPIRIVA RESPIMAT 2.5 MCG 2 PUFF INH (08:17)
[2024-06-01] MEDS: ProAIR HFA INHALER 2 PUFF INH ×4 (08:17→21:39)
[2024-06-01] MEDS: SYMBICORT 160/4.5 MCG INHALER 2 PUFF INH ×2 (08:18→21:39)
[2024-06-01 08:36] LABS: Glucose - Point of Care 137 mg/dl (70-99)
[2024-06-01] MEDS: NOVOLOG FLEXPEN 2 UNITS SC ×3 (08:40→16:19)
[2024-06-01] MEDS: COREG 12.5 MG PO ×2 (08:41→22:44)
[2024-06-01] MEDS: DELTASONE 40 MG PO (08:41)
[2024-06-01] MEDS: LEXAPRO 20 MG PO (08:41)
[2024-06-01] MEDS: MOLNUPIRAVIR (EUA) 800 MG PO ×2 (08:41→22:40)
[2024-06-01] MEDS: PROTONIX 40 MG PO (08:41)
[2024-06-01] MEDS: MYCOSTATIN ORAL SUSPENSION 5 ML PO ×4 (08:41→22:41)
[2024-06-01] MEDS: NEURONTIN 300 MG PO ×2 (08:41→22:40)
[2024-06-01] MEDS: BUSPAR 10 MG PO ×2 (08:42→22:39)
[2024-06-01] MEDS: MUCINEX 1200 MG PO ×2 (08:42→22:40)
[2024-06-01] MEDS: ELIQUIS 5 MG PO ×2 (08:42→22:39)
[2024-06-01] MEDS: MIRALAX 17 GRAMS PO (08:42)
[2024-06-01] MEDS: JARDIANCE 10 MG PO (08:42)
[2024-06-01] MEDS: COZAAR 100 MG PO (08:42)
[2024-06-01] MEDS: LASIX 80 MG PO (08:42)
--- NOTE | 2024-06-01 09:08 | W.PN.HOSP.TC ---
Today's Communication/Plan
-
Discharge to short-term rehab when bed available
Assessment / Plan
Assessment / Plan
73yo M with PMHx of EARL, HFpEF, CAD, persistent Afib on eliquis, HTN, HLD, DM, wheelchair dependent 2/2 morbid obesity came with chest pain and discomfort, managed for CHF exacerbation, cardiac cath done on 05/24/24 Lasix switched to PO on the same
date by Cardio due to non-obstructive disease, however no significant weight loss and dyspnea still persists, so diuretics to be adjusted. Due to lack of home support and poor ambulatory performance will need to start with STR.
Most likely patient has multifactorial SOB with CHF, recent pneumonia and restrictive lung disease combination
After roommate tested positive for COVID-19 - patient also was found positive on 05/28/24. molnupiravir started by ID
A/P:
#COVID-19
Without pneumonia or hypoxia
follow inflammatory markers - no significant elevation, Procalcitonin WNL
ID started molnupiravir through 06/01
Monitor for hypoxia
#Acute on chronic HFpEF exacerbation - resolved
#Non-ischemic myocardial injury
#Hx of CAD
#persistent Afib s/p PPM
Daily weight, lasix, follow electrolytes
Echo repeated: preserved EF with pulmonary HTN
Cardiology follows: L and R heart cath for 05/24/24 showing elevated filling pressures, pulmonary hypertension
Cardiology recommends increasing Lasix 80 mg p.o. daily, started Jardiance
Cont Eliquis, rate control and telemetry
#Mild anemia
#Recurrent mild thrombocytopenia
Follow CBC
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
follow Cr
#Cough
most likely bronchitis
repeat XR
doxy empirically for immunomodulatory and antiinflammatory properties
#R hemidiaphragm elevation
#Restrictive lung disease
#EARL
Appreciate pulmonology input, continue CPAP, continue steroid taper
#Small R nephrolithiasis
#R adrenal adenoma
Outpatient w/u for hormonal secretion and MRI recommended
#DM type 2 with nephropathy
Insulin SS, DM diet, AccuCheck
#HLD
#Anxiety d/o
#Morbid obesity with BMI
cont home meds
advise to decrease calorie intake
DVT prophylaxis�Eliquis
Full code
Total time spent to see the patient on the floor, examine the patient, review data and lab results, discuss treatment plan with patient, nursing staff around 36 minutes.
Physical Exam
General: Morbidly obese, no acute distress
HEENT: Normocephalic, Atraumatic, EOMI, MMM
Respiratory: Diminished breath sounds at the bases
Cardiac: Normal S1/S2, Regular Rate and Rhythm
GI: Soft, Nontender, Nondistended, Normal Bowel Sounds
Extremities: No Clubbing, Cyanosis
Bilateral lower extremity edema noted
Neuro: Nonfocal/Grossly Intact
Psych: Calm, Cooperative
Anticipated Discharge: Within 24 hours
Subjective/Interval History
-
Date of Service: June 01, 2024
Patient's shortness of breath is at baseline. No fever, no vomiting.
Objective Data
-
Vital Signs:
Vital Signs
Temp Pulse Resp BP Pulse Ox
98.2 F 51 18 177/86 94
06/01/24 07:36 06/01/24 08:42 06/01/24 08:20 06/01/24 08:42 06/01/24 08:20
I&O
05/31/24 06/01/24 06/02/24
06:59 06:59 06:59
Intake Total 720 / 720 1800 / 1800
Balance 720 / 720 1800 / 1800
--- NOTE | 2024-06-01 10:44 | CM ---
Addendum entered by Portia Rehman 06/01/24 16:49:
Patient has been accepted by [facility] and [facility], patient is asking for referral to [facility].
Original Note:
field party manager reviewed patient's chart and spoke with patient by phone, patient continues on isolation, case folder reviewed options for skilled placement as patient states he needs skilled placement and sister says that caregivers cannot care for
patient while COVID +, multiple referrals sent including [facility], [facility], [facility], [facility], [facility], [facility] [place], [facility] and [facility] and they have all denied patient, case
field party manager offered to make referrals to [facility] and [place] however patient declined, case folder reached out to [facility], [facility] and [facility] and faxed a referrals.
Patient has been accepted at [facility], private room, patient is not sure about facility and wants to review.
Plan; To follow for skilled placement prior to returning to home to his apartment.
[2024-06-01] MEDS: APRESOLINE 50 MG PO (11:24)
[2024-06-01] MEDS: REFRESH EYE DROPS (PF) 1 DROPS BOTH EYES (11:24)
[2024-06-01 11:31] LABS: Glucose - Point of Care 257 mg/dl (70-99)
[2024-06-01 13:15] VITALS: BP 118/64; PULSE 60; O2SAT 94
[2024-06-01 16:19] LABS: Glucose - Point of Care 322 mg/dl (70-99)
[2024-06-01 16:22] VITALS: BP 144/65
[2024-06-01 20:49] LABS: Glucose - Point of Care 331 mg/dl (70-99)
[2024-06-01] MEDS: LANTUS 0.15 UNITS SC (22:39)
[2024-06-01] MEDS: LIPITOR 10 MG PO (22:39)
[2024-06-01 23:30] VITALS: BP 165/67
[2024-06-02 00:32] VITALS: PULSE 2
[2024-06-02 05:44] VITALS: BMI 36.7
[2024-06-02 07:50] VITALS: BP 153/75
[2024-06-02 08:19] LABS: Glucose - Point of Care 139 mg/dl (70-99)
[2024-06-02] MEDS: SYMBICORT 160/4.5 MCG INHALER 2 PUFF INH ×2 (08:26→20:55)
[2024-06-02] MEDS: SPIRIVA RESPIMAT 2.5 MCG 2 PUFF INH (08:26)
[2024-06-02] MEDS: ProAIR HFA INHALER 2 PUFF INH ×4 (08:26→20:55)
--- NOTE | 2024-06-02 09:15 | W.PN.HOSP.TC ---
Today's Communication/Plan
-
Discharge to short-term rehab when bed available
Assessment / Plan
Assessment / Plan
73yo M with PMHx of EARL, HFpEF, CAD, persistent Afib on eliquis, HTN, HLD, DM, wheelchair dependent 2/2 morbid obesity came with chest pain and discomfort, managed for CHF exacerbation, cardiac cath done on 05/24/24 Lasix switched to PO on the same
date by Cardio due to non-obstructive disease, however no significant weight loss and dyspnea still persists, so diuretics to be adjusted. Due to lack of home support and poor ambulatory performance will need to start with STR.
Most likely patient has multifactorial SOB with CHF, recent pneumonia and restrictive lung disease combination
After roommate tested positive for COVID-19 - patient also was found positive on 05/28/24. molnupiravir started by ID
A/P:
#COVID-19
Without pneumonia or hypoxia
follow inflammatory markers - no significant elevation, Procalcitonin WNL
ID started molnupiravir through 06/01
Continue isolation for 10 days through 06/06
Medically stable for discharge to short-term rehab when bed available
#Acute on chronic HFpEF exacerbation - resolved
#Non-ischemic myocardial injury
#Hx of CAD
#persistent Afib s/p PPM
Daily weight, lasix, follow electrolytes
Echo repeated: preserved EF with pulmonary HTN
Cardiology follows: L and R heart cath for 05/24/24 showing elevated filling pressures, pulmonary hypertension
Cardiology recommends increasing Lasix 80 mg p.o. daily, started Jardiance
Cont Eliquis, rate control and telemetry
#Mild anemia
#Recurrent mild thrombocytopenia
Follow CBC
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
follow Cr
#Cough
most likely bronchitis
repeat XR
doxy empirically for immunomodulatory and antiinflammatory properties
#R hemidiaphragm elevation
#Restrictive lung disease
#EARL
Appreciate pulmonology input, continue CPAP, continue steroid taper
#Small R nephrolithiasis
#R adrenal adenoma
Outpatient w/u for hormonal secretion and MRI recommended
#DM type 2 with nephropathy
Insulin SS, DM diet, Lantus, novolog, AccuCheck
Increase NovoLog
#HLD
#Anxiety d/o
#Morbid obesity with BMI
cont home meds
advise to decrease calorie intake
DVT prophylaxis�Eliquis
Full code
Total time spent to see the patient on the floor, examine the patient, review data and lab results, discuss treatment plan with patient, nursing staff around 39 minutes.
Physical Exam
General: Morbidly obese, no acute distress
HEENT: Normocephalic, Atraumatic, EOMI, MMM
Respiratory: Diminished breath sounds at the bases
Cardiac: Normal S1/S2, Regular Rate and Rhythm
GI: Soft, Nontender, Nondistended, Normal Bowel Sounds
Extremities: No Clubbing, Cyanosis
Bilateral lower extremity edema noted
Neuro: Nonfocal/Grossly Intact
Psych: Calm, Cooperative
Anticipated Discharge: Within 24 hours
Subjective/Interval History
-
Date of Service: June 02, 2024
Patient complains of continued cough and congestion. No fever, no vomiting.
Objective Data
-
Vital Signs:
Vital Signs
Temp Pulse Resp BP Pulse Ox
98.0 F 60 16 153/75 95
06/02/24 07:50 06/02/24 08:35 06/02/24 08:35 06/02/24 07:50 06/02/24 08:35
I&O
06/01/24 06/02/24 06/03/24
06:59 06:59 06:59
Intake Total 1800 / 1800 1440 / 1440
Balance 1800 / 1800 1440 / 1440
[2024-06-02] MEDS: MOLNUPIRAVIR (EUA) 800 MG PO (09:47)
[2024-06-02] MEDS: PROTONIX 40 MG PO (09:48)
[2024-06-02] MEDS: MUCINEX 1200 MG PO ×2 (09:48→20:33)
[2024-06-02] MEDS: LASIX 80 MG PO (09:48)
[2024-06-02] MEDS: MYCOSTATIN ORAL SUSPENSION 5 ML PO ×5 (09:48→21:35)
[2024-06-02] MEDS: NEURONTIN 300 MG PO ×2 (09:49→20:33)
[2024-06-02] MEDS: DELTASONE 30 MG PO (09:49)
[2024-06-02] MEDS: JARDIANCE 10 MG PO (09:49)
[2024-06-02] MEDS: ELIQUIS 5 MG PO ×2 (09:50→20:33)
[2024-06-02] MEDS: COZAAR 100 MG PO (09:50)
[2024-06-02] MEDS: COREG 12.5 MG PO ×2 (09:50→20:40)
[2024-06-02] MEDS: BUSPAR 10 MG PO ×2 (09:50→20:51)
[2024-06-02] MEDS: LEXAPRO 20 MG PO (09:51)
[2024-06-02] MEDS: MIRALAX 17 GRAMS PO (09:51)
[2024-06-02] MEDS: NOVOLOG FLEXPEN 2 UNITS SC ×2 (09:53→12:00)
--- NOTE | 2024-06-02 11:36 | CM ---
merchandise team manager continues to follow with patient progress and patient has been accepted at 2 skilled facilities, admissions at [facility] have been following patient and can provide a private room. Patient's other option is to return to home with
[facility], and private caregivers, when patient reached his therapy goals and is off COVID isolation.
Plan; Home with [facility] and private caregivers v's skilled placement at [facility], patient is refusing [facility] as an option alone with [facility] at according to Medicare.gov compare they both have one star.
[2024-06-02 11:48] LABS: Glucose - Point of Care 318 mg/dl (70-99)
[2024-06-02] MEDS: REFRESH EYE DROPS (PF) 1 DROPS BOTH EYES ×2 (14:06→20:34)
[2024-06-02 15:24] VITALS: BP 131/67
[2024-06-02 17:10] LABS: Glucose - Point of Care 242 mg/dl (70-99)
[2024-06-02] MEDS: NOVOLOG FLEXPEN 4 UNITS SC (17:54)
[2024-06-02] MEDS: NOVOLOG FLEXPEN-MODERATE RESISTANCE 3 UNITS SC (17:55)
--- NOTE | 2024-06-02 19:55 | PTCARENOTE ---
Pt had an episode of vomiting. STAPLING MACHINE OPERATOR was contacted (Abad Goetz) for nausea medications. IV medication ordered, however, pt refused to have IV placed pt stated 'They just took this out, the IV hurts too much'. PO nausea meds ordered and given (tums
and reglan). Pt also complains of Left sided chest pressure, respiratory therapist at bedside to administer breathing treatment. Pt also appears upset, calling nursing station multiple times stating he only wants Jim RN to be his nurse. Pt educated
on why he is not able to choose a specific nurse. Pt comfortable in bed, chest pressure resolved after breathing treatment, vomiting subsided.
[2024-06-02 20:00] VITALS: BMI 36.7
[2024-06-02] MEDS: TUMS EX (EXTRA STRENGTH) CHEWABLE 1 TABLET PO (20:50)
[2024-06-02] MEDS: LIPITOR 10 MG PO (20:54)
[2024-06-02] MEDS: LANTUS 0.15 UNITS SC (21:00)
[2024-06-02 21:02] LABS: Glucose - Point of Care 224 mg/dl (70-99)
[2024-06-02] MEDS: REGLAN 5 MG PO (21:23)
[2024-06-02 23:28] VITALS: PULSE 2; PULSE 71
[2024-06-02 23:53] VITALS: BP 140/69
[2024-06-03 06:00] VITALS: BMI 36.5
[2024-06-03] MEDS: ProAIR HFA INHALER 2 PUFF INH (06:27)
[2024-06-03] MEDS: SPIRIVA RESPIMAT 2.5 MCG 2 PUFF INH (06:27)
[2024-06-03] MEDS: SYMBICORT 160/4.5 MCG INHALER 2 PUFF INH ×2 (06:27→20:37)
[2024-06-03 07:50] VITALS: BP 145/69
--- NOTE | 2024-06-03 08:12 | W.PN.HOSP.TC ---
Today's Communication/Plan
-
Discharge to short-term rehab
Assessment / Plan
Assessment / Plan
73yo M with PMHx of EARL, HFpEF, CAD, persistent Afib on eliquis, HTN, HLD, DM, wheelchair dependent 2/2 morbid obesity came with chest pain and discomfort, managed for CHF exacerbation, cardiac cath done on 05/24/24 Lasix switched to PO on the same
date by Cardio due to non-obstructive disease, however no significant weight loss and dyspnea still persists, so diuretics to be adjusted. Due to lack of home support and poor ambulatory performance will need to start with STR.
Most likely patient has multifactorial SOB with CHF, recent pneumonia and restrictive lung disease combination
After roommate tested positive for COVID-19 - patient also was found positive on 05/28/24. molnupiravir started by ID
A/P:
#COVID-19
Without pneumonia or hypoxia
follow inflammatory markers - no significant elevation, Procalcitonin WNL
Seen by ID, patient has completed molnupiravir
Continue isolation for 10 days through 06/06
Medically stable for discharge to short-term rehab today
#Acute on chronic HFpEF exacerbation - resolved
#Non-ischemic myocardial injury
#Hx of CAD
#Persistent Afib s/p PPM
Daily weight, lasix, follow electrolytes
Echo repeated: preserved EF with pulmonary HTN
Cardiology follows: L and R heart cath for 05/24/24 showing elevated filling pressures, pulmonary hypertension
Cardiology recommends increasing Lasix 80 mg p.o. daily, started Jardiance
Cont Eliquis, coreg
#Mild anemia
#Recurrent mild thrombocytopenia
Follow CBC
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
follow Cr
#Cough
most likely bronchitis
repeat XR
doxy empirically for immunomodulatory and antiinflammatory properties
#R hemidiaphragm elevation
#Restrictive lung disease
#EARL
Appreciate pulmonology input, continue CPAP, continue steroid taper
#Small R nephrolithiasis
#R adrenal adenoma
Outpatient w/u for hormonal secretion and MRI recommended
#DM type 2 with nephropathy
Insulin SS, DM diet, Lantus, novolog, AccuCheck
Increased NovoLog
#HLD
#Anxiety d/o
#Morbid obesity with BMI
cont home meds
advise to decrease calorie intake
DVT prophylaxis�Eliquis
Full code
Anticipated Discharge: Today
Subjective/Interval History
-
Date of Service: June 03, 2024
Objective Data
-
Vital Signs:
Vital Signs
Temp Pulse Resp BP Pulse Ox
98 F 77 18 140/69 92
06/02/24 23:53 06/03/24 06:32 06/03/24 06:32 06/02/24 23:53 06/03/24 06:32
I&O
06/02/24 06/03/24 06/04/24
06:59 06:59 06:59
Intake Total 1440 / 1440 1140 / 1140
Balance 1440 / 1440 1140 / 1140
[2024-06-03 08:31] LABS: Glucose - Point of Care 139 mg/dl (70-99)
[2024-06-03] MEDS: NOVOLOG FLEXPEN 4 UNITS SC ×3 (09:40→17:39)
[2024-06-03] MEDS: NOVOLOG FLEXPEN-MODERATE RESISTANCE SC (09:40)
[2024-06-03] MEDS: DELTASONE 30 MG PO (09:41)
[2024-06-03] MEDS: COREG 12.5 MG PO ×2 (09:42→20:30)
[2024-06-03] MEDS: MUCINEX 1200 MG PO (09:42)
[2024-06-03] MEDS: MIRALAX 17 GRAMS PO (09:42)
[2024-06-03] MEDS: LASIX 80 MG PO (09:43)
[2024-06-03] MEDS: LEXAPRO 20 MG PO (09:44)
[2024-06-03] MEDS: BUSPAR 10 MG PO ×2 (09:44→20:31)
[2024-06-03] MEDS: COZAAR 100 MG PO (09:44)
[2024-06-03] MEDS: PROTONIX 40 MG PO (09:45)
[2024-06-03] MEDS: ELIQUIS 5 MG PO ×2 (09:46→20:31)
[2024-06-03] MEDS: JARDIANCE 10 MG PO (09:46)
[2024-06-03] MEDS: NEURONTIN 300 MG PO ×2 (09:47→20:31)
--- NOTE | 2024-06-03 10:01 | CM ---
Addendum entered by Portia Rehman 06/03/24 10:35:
IMM completed and signed at 10am, 06/03/24, waiting on determination from [facility].
Original Note:
membership manager reviewed patient's chart and reached out to physician to confirm that patient is cleared for discharge, egg caser spoke with patient and spoke with admissions at [facility] and they can accept patient. Patient is now asking for
egg caser to recontact [facility], egg caser spoke with Elza in admissions at [facility] and will await confirmation that there is a bed available for patient today. membership manager will then need to obtain Auth.
Plan; Skilled placement at [facility] or [facility] today.
--- NOTE | 2024-06-03 10:32 | W.DCSUMMARY ---
Discharge Summary
Discharge Data
Date of Admission: 05/16/24
Date of Discharge: 06/05/24
-
Pending Results: No
Hospital Course
Discharge diagnosis:
Chronic shortness of breath, multifactorial in nature
Acute hypoxic respiratory insufficiency
Acute coronavirus infection
Restrictive lung disease
Obstructive sleep apnea
Acute heart failure with preserved ejection fraction
Persistent atrial fibrillation on Eliquis
Nonischemic myocardial injury
Coronary artery disease
Type 2 diabetes
Mild anemia
Mild thrombocytopenia
Stage III chronic kidney disease
Right adrenal adenoma
Anxiety
Obesity due to excess calories
Consults: Pulmonology, cardiology, ID
Procedures:
05/24/2024
1. Right dominant circulation with dense external calcification of the proximal LAD, 70% lesions in the ostia of both diagonals, improved from prior diagnostic study in 2019 and a nonocclusive 60-70% lesion in the proximal/mid RCA (IFR = 0.93).
2. Moderate to severely elevated filling pressures (LVEDP = 21 mmHg, PCWP = 25 mmHg at 117.5 kg).
3. Severe postcapillary pulmonary hypertension (PA = 65/30/42 mmHg, PCWP = 25 mmHg, PVR = 2.70 Petersen units).
RECOMMENDATIONS:
1. Expectant management after cardiac catheterization via right radial/antecubital approach.
2. Limited weight bearing on the right wrist for one week.
3. Increase furosemide to 80 mg p.o. daily and monitor response.
4. Guideline directed medical therapy as hemodynamics will tolerate.
5. Aggressive primary prevention and risk modification given documented atherosclerosis and coronary artery calcification.
6. The patient may benefit from SGLT2 inhibitors.
Hospital course:
73-year-old male with a past medical history of persistent atrial fibrillation on Eliquis, heart failure with a preserved ejection fraction, stage III chronic kidney disease, restrictive lung disease, obstructive sleep apnea, coronary artery
disease, type 2 diabetes, and obesity was admitted for shortness of breath.
Patient was seen in conjunction with cardiology, and treated for acute heart failure with a preserved ejection fraction. He was diuresed with IV Lasix. Patient's hypoxia resolved. He had an elevated troponin from nonischemic myocardial injury.
He has a history of coronary artery disease. He underwent right and left heart catheterization on 05/24/2024, showing stable coronary artery disease and elevated filling pressures. He is usually on Lasix 40 mg p.o. daily at home. Cardiology
recommends increasing his home Lasix dose to 80 mg p.o. daily, and adding Jardiance.
Patient also has obstructive sleep apnea, and restrictive lung disease. He was seen in conjunction with pulmonology. His roommate was found to have acute coronavirus. He tested positive for coronavirus on 05/28/2024. Pulmonology started him on a
steroid taper. Patient was seen in conjunction with ID, and treated with molnupiravir.
Patient completed his course of molnupiravir in the hospital. He needs to isolate through 06/06/24.
Patient's multiple medical conditions have been optimized. Pulmonology recommends he be discharged on a steroid taper. He is to continue using his BiPAP at night. He needs to follow-up with his primary care doctor in 1 week, pulmonology in the
office in 2-3 weeks, and cardiology as well.
Disposition: Short-term rehab
Discharge planning: Required 65 minutes
Discharge Plan
-
Patient Disposition: Senior Living/SNF
Discharge Diagnosis/Procedures: Acute coronavirus infection, acute heart failure with a preserved ejection fraction, coronary artery disease, restrictive lung disease, obstructive sleep apnea, right adrenal adenoma, type 2 diabetes, obesity due to
excess calories, anxiety, atrial fibrillation on Eliquis
Condition: Fair
Diet: 2 Gram Sodium and Diabetic, Carb Controlled
Activity: As tolerated
Specialty Instructions: Weigh Daily- Call MD for wt gain/loss 3 lbs overnight/5 lbs in 1 week
Activity Restrictions/Additional Instructions:
Continue isolation for 10 days through 06/06.
Continue nystatin through 06/11.
Take prednisone 20mg daily x2 days, 10mg daily x3days.
Continue using your BiPAP at night, settings 21/05.
You have a right adrenal adenoma, this is usually a benign mass.
We recommend adrenal MRI outpatient, this can be done with your primary care doctor.
Follow-up with your primary care doctor 1 week after you leave rehab.
Stand Alone Forms: DC Instructions- Cath/EP Lab
Referrals:
Chelo Stanley NP [Specified Professional Personl] - 06/22/24 11:00 am (Cardiology followup appointment)
Rashel Rivas MD [Active] - in two to three weeks
(or DIRECTOR OF EARLY CHILDHOOD
needs PFT)
Woody Rodney MD [Non-Admitting Privileges] - in one week
UNKNOWN - PT DOES,NOT KNOW [Family Provider] -
Prescriptions:
New
Jardiance 10 mg Tablet
10 mg PO DAILY Qty: 0 0RF
polyethylene glycol 3350 [HealthyLax] 17 gram Powder In Packet
17 g PO DAILY Qty: 0 0RF
furosemide 80 mg Tablet
80 mg PO DAILY Qty: 0 0RF
nystatin 100,000 unit/mL Suspension
5 ml PO QID 9 Days Qty: 180 0RF
prednisone 10 mg tablet
10 mg PO .TAPER Qty: 14 0RF
Rx Instructions:
20mg daily x3days, 10mg daily x3days.
Continued
atorvastatin [Lipitor] 10 mg Tablet
10 mg PO HS
escitalopram oxalate [Lexapro] 20 mg Tablet
20 mg PO DAILY
fluticasone propion-salmeterol [Wixela Inhub] 100-50 mcg/dose Blister With Device
1 inh INHALATION R BID
Eliquis 5 mg tablet
5 mg PO BID Qty: 30 0RF
gabapentin 300 mg capsule
300 mg PO BID
pantoprazole [Protonix] 40 mg Tablet,Delayed Release (Dr/Ec)
40 mg PO DAILY
buspirone 10 mg Tablet
10 mg PO BID
carvedilol 12.5 mg Tablet
12.5 mg PO BID Qty: 10 0RF
hydralazine 50 mg Tablet
50 mg PO TID
insulin lispro 100 unit/mL solution
0 sliding scale dose SC AC
Patient Comments:
04/09/24:141-180=4u,181-220=6u,221-260=8u,261-300=10u,301-350=12u,351-400=14u,401-500=16u
losartan 100 mg Tablet
100 mg PO DAILY
insulin glargine [Lantus Solostar U-100 Insulin] 100 unit/mL (3 mL) Insulin Pen
15 unit SC HS
Refresh Classic (PF) 1.4-0.6 % dropperette
1 drops BOTH EYES QIDPRN PRN (Reason: dry eyes)
Discontinued
furosemide 40 mg Tablet
40 mg PO DAILY Qty: 0 0RF
Discharge Orders:
Discharge Patient (As Directed); Ordered 06/03/24
Ordered By: Maurisio Edgar
Discharge Date and Time
Discharge Date/Time: 06/05/24 20:07
Print Language: POLISH
[2024-06-03] MEDS: ProAIR HFA INHALER INH (10:53)
[2024-06-03] MEDS: MYCOSTATIN ORAL SUSPENSION 5 ML PO ×3 (12:06→21:06)
[2024-06-03] MEDS: REFRESH EYE DROPS (PF) 1 DROPS BOTH EYES ×2 (12:06→20:31)
[2024-06-03 12:10] LABS: Glucose - Point of Care 235 mg/dl (70-99)
[2024-06-03] MEDS: NOVOLOG FLEXPEN-MODERATE RESISTANCE 3 UNITS SC (12:32)
--- NOTE | 2024-06-03 15:32 | PTCARENOTE ---
patient shaved by Director of [facility].
[2024-06-03 15:44] VITALS: BP 145/67
[2024-06-03 16:34] LABS: Glucose - Point of Care 256 mg/dl (70-99)
[2024-06-03] MEDS: NOVOLOG FLEXPEN-MODERATE RESISTANCE 5 UNITS SC (17:40)
[2024-06-03] MEDS: LIPITOR 10 MG PO (21:04)
[2024-06-03] MEDS: REGLAN 5 MG PO (21:04)
[2024-06-03 21:12] LABS: Glucose - Point of Care 267 mg/dl (70-99)
[2024-06-03] MEDS: LANTUS 0.15 UNITS SC (21:13)
[2024-06-03 23:10] VITALS: PULSE 2; PULSE 67
[2024-06-03] MEDS: APRESOLINE 50 MG PO (23:13)
[2024-06-03 23:22] VITALS: BP 162/88
[2024-06-04 01:01] VITALS: BP 146/75
[2024-06-04 04:50] VITALS: BMI 35.6
[2024-06-04 07:30] VITALS: BP 164/76
[2024-06-04] MEDS: SPIRIVA RESPIMAT 2.5 MCG 2 PUFF INH (08:10)
[2024-06-04] MEDS: SYMBICORT 160/4.5 MCG INHALER 2 PUFF INH ×2 (08:10→20:07)
--- NOTE | 2024-06-04 08:42 | W.PN.HOSP.TC ---
Today's Communication/Plan
-
Discharge to short-term rehab tomorrow
Assessment / Plan
Assessment / Plan
73yo M with PMHx of EARL, HFpEF, CAD, persistent Afib on eliquis, HTN, HLD, DM, wheelchair dependent 2/2 morbid obesity came with chest pain and discomfort, managed for CHF exacerbation, cardiac cath done on 05/24/24 Lasix switched to PO on the same
date by Cardio due to non-obstructive disease, however no significant weight loss and dyspnea still persists, so diuretics to be adjusted. Due to lack of home support and poor ambulatory performance will need to start with STR.
Most likely patient has multifactorial SOB with CHF, recent pneumonia and restrictive lung disease combination
After roommate tested positive for COVID-19 - patient also was found positive on 05/28/24. molnupiravir started by ID
A/P:
#COVID-19
Without pneumonia or hypoxia
follow inflammatory markers - no significant elevation, Procalcitonin WNL
Seen by ID, patient has completed molnupiravir
Continue isolation for 10 days through 06/06
Medically stable for discharge to short-term rehab
#Acute on chronic HFpEF exacerbation - resolved
#Non-ischemic myocardial injury
#Hx of CAD
#Persistent Afib s/p PPM
Daily weight, lasix, follow electrolytes
Echo repeated: preserved EF with pulmonary HTN
Cardiology follows: L and R heart cath for 05/24/24 showing elevated filling pressures, pulmonary hypertension
Cardiology recommends increasing Lasix 80 mg p.o. daily, started Jardiance
Cont Eliquis, coreg
#Mild anemia
#Recurrent mild thrombocytopenia
Follow CBC
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
follow Cr
#Cough
most likely bronchitis
repeat XR
doxy empirically for immunomodulatory and antiinflammatory properties
#R hemidiaphragm elevation
#Restrictive lung disease
#EARL
Appreciate pulmonology input, continue CPAP, continue steroid taper
#Small R nephrolithiasis
#R adrenal adenoma
Outpatient w/u for hormonal secretion and MRI recommended
#DM type 2 with nephropathy
Insulin SS, DM diet, Lantus, novolog, AccuCheck
Increased NovoLog
#HLD
#Anxiety d/o
#Morbid obesity with BMI
cont home meds
advise to decrease calorie intake
DVT prophylaxis�Eliquis
Full code
Total time spent to see the patient on the floor, examine the patient, review data and lab results, discuss treatment plan with patient, nursing staff around 35 minutes.
Physical Exam
General: Obese, no acute distress
HEENT: Normocephalic, Atraumatic, EOMI, MMM
Respiratory: Diminished breath sounds at the bases
Cardiac: Normal S1/S2, Regular Rate and Rhythm
GI: Soft, Nontender, Nondistended, Normal Bowel Sounds
Extremities: No Clubbing, Cyanosis
Bilateral lower extremity edema noted
Neuro: Nonfocal/Grossly Intact
Psych: Calm, Cooperative
Derm: No Visible lesions
Anticipated Discharge: Within 24 hours
Subjective/Interval History
-
Date of Service: June 04, 2024
No acute events. Continues to have chest congestion and cough. No fever, no vomiting.
Objective Data
-
Vital Signs:
Vital Signs
Temp Pulse Resp BP Pulse Ox
98.2 F 53 16 146/75 95
06/03/24 23:22 06/04/24 08:30 06/04/24 08:30 06/04/24 01:01 06/04/24 08:30
I&O
06/03/24 06/04/24 06/05/24
06:59 06:59 06:59
Intake Total 1140 / 1140 1140 / 1140
Balance 1140 / 1140 1140 / 1140
[2024-06-04 09:10] LABS: Glucose - Point of Care 123 mg/dl (70-99)
[2024-06-04 09:31] VITALS: BP 164/76
[2024-06-04] MEDS: NEURONTIN 300 MG PO ×2 (09:59→21:42)
[2024-06-04] MEDS: MYCOSTATIN ORAL SUSPENSION 5 ML PO ×4 (09:59→21:42)
[2024-06-04] MEDS: PROTONIX 40 MG PO (09:59)
[2024-06-04] MEDS: COZAAR 100 MG PO (09:59)
[2024-06-04] MEDS: DELTASONE 20 MG PO (09:59)
[2024-06-04] MEDS: COREG 12.5 MG PO ×2 (10:00→21:46)
[2024-06-04] MEDS: LEXAPRO 20 MG PO (10:00)
[2024-06-04] MEDS: BUSPAR 10 MG PO ×2 (10:00→21:42)
[2024-06-04] MEDS: ELIQUIS 5 MG PO ×2 (10:00→21:42)
[2024-06-04] MEDS: NOVOLOG FLEXPEN-MODERATE RESISTANCE SC (10:00)
[2024-06-04] MEDS: JARDIANCE 10 MG PO (10:00)
[2024-06-04] MEDS: LASIX 80 MG PO (10:00)
[2024-06-04] MEDS: NOVOLOG FLEXPEN 4 UNITS SC ×2 (10:01→13:00)
[2024-06-04] MEDS: MIRALAX 17 GRAMS PO (10:01)
[2024-06-04] MEDS: REFRESH EYE DROPS (PF) 1 DROPS BOTH EYES ×2 (10:02→17:58)
--- NOTE | 2024-06-04 12:01 | CM ---
Addendum entered by Portia Rehman 06/04/24 15:10:
Auth received from [facility] and per Magdy in admissions at [facility] isolation room available for patient tomorrow. Per Magdy they have wireless patient phones.
Auth is for 5 days 06/04/24-06/08/24 Auth [id number], follow up with Chelo Maza [phone], . Auth provided to Magdy in admissions at [facility].
[facility]
Report [phone]

Original Note:
desktop support manager continues to follow with patient and after many conversations with [facility] Angel Valdez, their decision from their cooperate office is that they cannot accept patient, porter sample case spoke with patient and had a long conversation on skilled
options, and at this time the only facility that will accept patient is [facility] in [place], patient is agreeable to this facility. desktop support manager reached out to Magdy at [facility] and he can accept patient tomorrow with private room,
Magdy will need patient's BiPAP settings which will be provided, porter sample case reached out to [facility] and faxed all clinicals to , Pending ref # [id number].
Plan; Skilled placement at [facility], pending Auth ref # [id number]
[2024-06-04 12:27] LABS: Glucose - Point of Care 248 mg/dl (70-99)
[2024-06-04] MEDS: NOVOLOG FLEXPEN-MODERATE RESISTANCE 3 UNITS SC (13:03)
[2024-06-04 15:00] VITALS: BP 110/62
[2024-06-04 17:25] LABS: Glucose - Point of Care 348 mg/dl (70-99)
[2024-06-04] MEDS: NOVOLOG FLEXPEN 5 UNITS SC (17:56)
[2024-06-04] MEDS: NOVOLOG FLEXPEN-MODERATE RESISTANCE 7 UNITS SC (17:57)
[2024-06-04 21:22] LABS: Glucose - Point of Care 228 mg/dl (70-99)
[2024-06-04] MEDS: LIPITOR 10 MG PO (21:42)
[2024-06-04] MEDS: LANTUS 0.15 UNITS SC (21:43)
[2024-06-04 21:47] VITALS: BP 133/67
[2024-06-04 23:36] VITALS: PULSE 2; PULSE 62
[2024-06-05 06:00] VITALS: BMI 35.3
--- NOTE | 2024-06-05 08:13 | W.PN.HOSP.TC ---
Today's Communication/Plan
-
Has SNF bed and authorization for today, medically stable for discharge since Thursday 05/31
Over 70 referrals have been sent, multiple nursing facilities will not take patient back due to inappropriate behavior
Patient has been informed that he has been discharged, he can appeal if he wishes
Assessment / Plan
Assessment / Plan
73yo M with PMHx of EARL, HFpEF, CAD, persistent Afib on eliquis, HTN, HLD, DM, wheelchair dependent 2/2 morbid obesity came with chest pain and discomfort, managed for CHF exacerbation, cardiac cath done on 05/24/24 Lasix switched to PO on the same
date by Cardio due to non-obstructive disease, however no significant weight loss and dyspnea still persists, so diuretics to be adjusted. Due to lack of home support and poor ambulatory performance will need to start with STR.
Most likely patient has multifactorial SOB with CHF, recent pneumonia and restrictive lung disease combination
After roommate tested positive for COVID-19 - patient also was found positive on 05/28/24. molnupiravir started by ID
A/P:
#COVID-19
Without pneumonia or hypoxia
follow inflammatory markers - no significant elevation, Procalcitonin WNL
Seen by ID, patient has completed molnupiravir
Continue isolation for 10 days through 06/06
Has SNF bed and authorization for today, medically stable for discharge since Thursday 05/31
Over 70 referrals have been sent, multiple nursing facilities will not take patient back due to inappropriate behavior
Patient has been informed that he has been discharged, he can appeal if he wishes
#Acute on chronic HFpEF exacerbation - resolved
#Non-ischemic myocardial injury
#Hx of CAD
#Persistent Afib s/p PPM
Daily weight, lasix, follow electrolytes
Echo repeated: preserved EF with pulmonary HTN
Cardiology follows: L and R heart cath for 05/24/24 showing elevated filling pressures, pulmonary hypertension
Cardiology recommends increasing Lasix 80 mg p.o. daily, started Jardiance
Cont Eliquis, coreg
#Mild anemia
#Recurrent mild thrombocytopenia
Follow CBC
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
follow Cr
#Cough
most likely bronchitis
repeat XR
doxy empirically for immunomodulatory and antiinflammatory properties
#R hemidiaphragm elevation
#Restrictive lung disease
#EARL
Appreciate pulmonology input, continue CPAP, continue steroid taper
#Small R nephrolithiasis
#R adrenal adenoma
Outpatient w/u for hormonal secretion and MRI recommended
#DM type 2 with nephropathy
Insulin SS, DM diet, Lantus, novolog, AccuCheck
Increased NovoLog
#HLD
#Anxiety d/o
#Morbid obesity with BMI
cont home meds
advise to decrease calorie intake
DVT prophylaxis�Eliquis
Full code
Total time spent to see the patient on the floor, examine the patient, review data and lab results, discuss treatment plan with patient, nursing staff around 45 minutes.
Physical Exam
General: Obese, no acute distress
HEENT: Normocephalic, Atraumatic, EOMI, MMM
Respiratory: Diminished breath sounds at the bases
Cardiac: Normal S1/S2, Regular Rate and Rhythm
GI: Soft, Nontender, Nondistended, Normal Bowel Sounds
Extremities: No Clubbing, Cyanosis
Bilateral lower extremity edema noted, much improved from admission
Neuro: Nonfocal/Grossly Intact
Anticipated Discharge: Today
Subjective/Interval History
-
Date of Service: June 05, 2024
Continues to cough, and report mild shortness of breath. No fever, no vomiting.
Objective Data
-
Vital Signs:
Vital Signs
Temp Pulse Resp BP Pulse Ox
97.8 F 62 16 133/67 96
06/04/24 21:47 06/04/24 21:47 06/04/24 21:47 06/04/24 21:47 06/04/24 21:47
I&O
06/04/24 06/05/24 06/06/24
06:59 06:59 06:59
Intake Total 1140 / 1140 1440 / 1440
Balance 1140 / 1140 1440 / 1440
[2024-06-05 08:22] LABS: Glucose - Point of Care 131 mg/dl (70-99)
[2024-06-05] MEDS: SPIRIVA RESPIMAT 2.5 MCG 2 PUFF INH (08:35)
[2024-06-05] MEDS: SYMBICORT 160/4.5 MCG INHALER 2 PUFF INH (08:35)
[2024-06-05 09:02] VITALS: BP 184/86
--- NOTE | 2024-06-05 09:04 | CM ---
Addendum entered by Flakito Rainey 06/05/24 15:10:
After long meetings and discussions with the pt all long day and with the great support of SEGUNDO Archer, pt made the decision not to go with an [facility] process and pt agrees with going to [facility]. Pt expressed his appreciation and he stated he
will need help with navigation of his next level of care soon because per pt physically is not that great, his apartment lease is up in January 2025 and he is not planning to renew his lease and he will looking for to move to a senior citizen
apartment. 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 Per pt, his sister will not be able to help him and he will need some community based services. CM explained to the pt that social director at [facility] will be working with him on
community based living options.
Again, pt freely expressed his agreement to go to [facility] today and he requested to leave the hospital around 8:00 p.m.
CM spoke to [facility] information technology coordinator Zane [phone] and he is aware of pt's decision to go to [facility] and it confirmed that pt is accepted for admission.
arranged transportation with Acute care ambulance BLS with picking tech time 8:00 p.m. [facility] completed and left with
[facility] nursing report: [phone]
Discharge instructions fax: [phone]
D/C plan: [facility] today
Addendum entered by Flakito Rainey 06/05/24 10:32:
Per RN pt made a strong request to see a bottle caser.
CM met with the pt. From first minutes pt yelled: 'i never gave my permission to go to [facility], that place is garbage, all negative reviews, don's even try to convince me to go to that place, I deserve a better one'. CM attempted to explain
to the pt regarding people's perceptions of SNFs but pt irritability has been increased to the highest level and pt's did not accept any approaches that can make him calmer and in a very angry way pt stated again: 'I will not to go to that [facility]
'.
In a very polite way, CM asked which SNF he would prefer to go. Pt requested following SNFs: [facility], [facility] SNF and [facility] SNF.
CM spoke to [facility] SN[facility] information technology coordinator Oriana and she stated that pt was before at [facility] and they will not accept the pt for a new admission and a referral has been denied.
CM spoke to [facility] SN[facility] information technology coordinator Angelo and she stated that a referral has been denied.
From [facility] SNF denied a referral.
CM met with prt again to explaine that all requested SNFs have denied a referral. pt expressed to me his high frustration, yelled with a threat to [facility] those SNF that denied him. CM explained to the pt that SNFs have a right to deny a referral. Pt
expressed again his very unhappy feelings. During my meeting with the pt, [facility] sales consulting director called and asked to talk to the pt to promise that pt will get nice care at [facility], he will have a private room and pt yelled:
'Do not try to convince me, I am not going to that place'.
Pt stated he was before at [facility] and he will not go there.
In a very frustrated way pt requested to send a referral to any SNFs around [facility].
A referral made to following SNFs: [facility], [facility], [facility], [facility], [facility], [facility], [facility], [facility] SNF.
Awaiting for determination.
CM will follow to assist the pt with discharge to a preferred SNF.
Original Note:
CM following re: discharge planning.
Reviewed pt's chart.
Discharge order noted. Pt is aware, expressed his agreement with discharge. IMM reviewed with the pt over the phone due to pt positive for COVID 19, placed on chart, pt stated he has a copy.
An auth from [employer] for SNF level of care at [facility] noted: Auth is for 5 days 06/04/24-06/08/24 Auth [id number], follow up with Chelo Maza [phone], .
NILDA spoke to nursing supervisor word processing at [facility] [phone] and she confirmed that pt is on a list for admission to their facility today and she confirmed that pt is accepted for admission.
[facility] to arrange transportation with [facility] B[facility]. [facility] completed and left with [facility] nursing report: [phone]
Discharge instructions fax: [phone]
D/C plan: [facility] today
[2024-06-05] MEDS: NOVOLOG FLEXPEN-MODERATE RESISTANCE SC (09:37)
[2024-06-05] MEDS: LASIX 80 MG PO (09:38)
[2024-06-05] MEDS: ELIQUIS 5 MG PO ×2 (09:38→19:33)
[2024-06-05] MEDS: MYCOSTATIN ORAL SUSPENSION 5 ML PO ×3 (09:38→17:03)
[2024-06-05] MEDS: DELTASONE 20 MG PO (09:38)
[2024-06-05] MEDS: PROTONIX 40 MG PO (09:38)
[2024-06-05] MEDS: JARDIANCE 10 MG PO (09:39)
[2024-06-05] MEDS: COZAAR 100 MG PO (09:39)
[2024-06-05] MEDS: NEURONTIN 300 MG PO ×2 (09:39→19:33)
[2024-06-05] MEDS: BUSPAR 10 MG PO ×2 (09:39→19:27)
[2024-06-05] MEDS: COREG 12.5 MG PO (09:40)
[2024-06-05] MEDS: NOVOLOG FLEXPEN 5 UNITS SC ×2 (09:40→12:46)
[2024-06-05] MEDS: MIRALAX 17 GRAMS PO (09:40)
[2024-06-05] MEDS: LEXAPRO 20 MG PO (09:40)
[2024-06-05 12:31] LABS: Glucose - Point of Care 249 mg/dl (70-99)
[2024-06-05] MEDS: NOVOLOG FLEXPEN-MODERATE RESISTANCE 3 UNITS SC (12:46)
[2024-06-05] MEDS: PHENERGAN 25 MG PO (13:27)
[2024-06-05 16:38] LABS: Glucose - Point of Care 197 mg/dl (70-99)
[2024-06-05] MEDS: NOVOLOG FLEXPEN 6 UNITS SC (16:40)
[2024-06-05] MEDS: NOVOLOG FLEXPEN-MODERATE RESISTANCE 1 UNITS SC (16:40)
--- NOTE | 2024-06-05 18:23 | PTCARENOTE ---
verbal report called into [facility] at [phone]. Report provided to Ronnie at [phone]. Acute care ambulance due to pick pt up at 1999.
[2024-06-05 19:30] VITALS: BP 95/53
--- NOTE | 2024-06-05 19:34 | W.PN.UPDATE ---
Update Note
Progress Note Update
BP 95/53, HR 77. asymptomatic. will hold the Coreg dose now.
== END 2024-06-05 20:07 | DRG 286 ==
LOC: 4 WEST ACU 23:44
PROVIDERS: Clinical Nurse Specialist Family Health; Internal Medicine; Internal Medicine Cardiovascular Disease; Nurse Practitioner Gerontology; ADMITTING PHYSICIAN Internal Medicine; ATTENDING PHYSICIAN Family Medicine; CONSULT PHYSICIAN Internal Medicine Critical Care Medicine; CONSULT PHYSICIAN Internal Medicine Infectious Disease; EMERGENCY PHYSICIAN Emergency Medicine; OTHER PHYSICIAN Internal Medicine Cardiovascular Disease
PROC: 5A09357 Assistance with Respiratory Ventilation, Less than 24 Consecutive Hours, Continuous Positive Airway Pressure (ICD-10-PCS; 2024-05-18)
PROC: 4A033BC Measurement of Arterial Pressure, Coronary, Percutaneous Approach (ICD-10-PCS; 2024-05-24)
PROC: B2111ZZ Fluoroscopy of Multiple Coronary Arteries using Low Osmolar Contrast (ICD-10-PCS; 2024-05-24)
PROC: 4A023N8 Measurement of Cardiac Sampling and Pressure, Bilateral, Percutaneous Approach (ICD-10-PCS; 2024-05-24)
DX: I13.0 Hypertensive heart and chronic kidney disease with heart failure and stage 1 through stage 4 chronic kidney disease, or unspecified chronic kidney disease (principal); I50.33 Acute on chronic diastolic (congestive) heart failure; U07.1 COVID-19; J12.82 Pneumonia due to coronavirus disease 2019; I48.19 Other persistent atrial fibrillation; I44.2 Atrioventricular block, complete; E66.2 Morbid (severe) obesity with alveolar hypoventilation; J44.0 Chronic obstructive pulmonary disease with (acute) lower respiratory infection; J44.1 Chronic obstructive pulmonary disease with (acute) exacerbation; D69.6 Thrombocytopenia, unspecified; I27.29 Other secondary pulmonary hypertension; D63.1 Anemia in chronic kidney disease; E11.22 Type 2 diabetes mellitus with diabetic chronic kidney disease; E11.40 Type 2 diabetes mellitus with diabetic neuropathy, unspecified; N18.30 Chronic kidney disease, stage 3 unspecified; F32.A Depression, unspecified; Z68.34 Body mass index [BMI] 34.0-34.9, adult; I49.5 Sick sinus syndrome; I5A Non-ischemic myocardial injury (non-traumatic); J98.6 Disorders of diaphragm; J98.4 Other disorders of lung; E78.00 Pure hypercholesterolemia, unspecified; R06.89 Other abnormalities of breathing; R09.02 Hypoxemia; R06.02 Shortness of breath; D35.01 Benign neoplasm of right adrenal gland; F41.9 Anxiety disorder, unspecified; I25.10 Atherosclerotic heart disease of native coronary artery without angina pectoris; K59.09 Other constipation; K80.20 Calculus of gallbladder without cholecystitis without obstruction; M10.9 Gout, unspecified; H10.45 Other chronic allergic conjunctivitis; R53.81 Other malaise; R19.7 Diarrhea, unspecified; R29.6 Repeated falls; Z79.01 Long term (current) use of anticoagulants; Z79.4 Long term (current) use of insulin; Z79.899 Other long term (current) drug therapy; Z87.01 Personal history of pneumonia (recurrent); Z95.0 Presence of cardiac pacemaker; Z87.19 Personal history of other diseases of the digestive system; Z91.81 History of falling; Z82.49 Family history of ischemic heart disease and other diseases of the circulatory system
CPT/HCPCS: 70450; 71045; 71046; 71250; 74230; 80048; 80053; 80061; 80076; 81003; 82728; 82962; 83036; 83605; 83735; 83880; 84100; 84132; 84145; 84484; 85025; 85027; 85347; 85652; 86140; 87811; 92526; 92610; 92611; 93005; 93306; 93460; 93571; 93970; 94060; 94640; 94660; 96360; 96361; 97116; 97163; 97530; 99285; C1769; C1894; Q9967

== ENCOUNTER 2024-07-29 18:33 | Inpatient (IN) | payer MEDICARE, SELFPAY ==
[2024-07-29] VITALS (9 sets, daily range): BP systolic 88–149; BP diastolic 45–131; PULSE 2–88; BMI 36.1; BMI 35.5
--- NOTE | 2024-07-29 15:25 | ED.GENMED ---
History of Present Illness
General
Chief Complaint: Musculo-Skeletal Complaint
Source: patient and ambulance crew
Exam Limitations: none
Time Seen by Provider: 07/29/24 14:41
Nursing documentation reviewed up to this point in time: agreed with
History of Present Illness
History of Present Illness:
73-year-old male presents emergency room complaining of a trip and fall that happened around 10 AM. Initially refused EMS. He got worse and called EMS again due to pain in his left lower extremity. EMS noted they was hypotensive in 80s/50s. He
has a history of CHF.
Past History
Past History
ED Past Medical History: Arrthythmia (Atrial fib), Asthma, CHF, COPD, HTN, IDDM, MD (Denies) and Other (Sleep apnea uses CPAP, Neuropathy, PNA, )
ED Past Surgical History: Cardiac (Pacemaker for III degree heart blocl), Orthopedic (Right hip surgery, Back surgery, ) and Tonsilectomy
Social History
Tobacco: Non-smoker
Alcohol: None
Personal: Single
Living: with family (Sister)
Family History
Family History: Unable to obtain
Review of Systems
Review of Systems
Allergies reviewed?: Yes
All Other Systems: Not applicable
Constitutional: Reports no symptoms
EENT: Reports no symptoms
Respiratory: Reports no symptoms
Cardiac: Reports no symptoms
ABD/GI: Reports no symptoms
: Reports no symptoms
Musculoskeletal: Reports joint pain and neck pain
Skin: Reports no symptoms
Neurological: Reports weakness
Endocrine: Reports no symptoms
Hematologic/Lymphatic: Reports no symptoms
Psychiatric: Reports no symptoms
Phy Exam
Physical Exam
Physical Exam:
Physical Exam
General: BP 93/55
Neck: supple. no meningeal signs. normal posterior pharynx
Heart: s1/s2 regular rate and rhythm, no murmur. equal radial
pulses.
HEENT: Pupils equal round reactive to light, EOMI
Lungs: no acute respiratory distress. clear bilaterally
Abdomen: normal bowel sounds. not tender. no CVAT
Neuro: alert and oriented. no focal neurological deficits cranial nerves II through XII intact
Skin: no rash
Psychiatric: well kept. interactive and cooperative
Extremities: Bilateral tibial edema. no calf tenderness. negative homans. good distal pulses, mild tenderness to palpation at left medial malleolus, right leg full range of motion, left leg limited range of motion at hip and
knee
Course
Orders/Labs/Results
Orders:
Orders
07/29/24 Dinner
1800 calorie (15 carb) Diabetic
At Your Request: Limited Participation
Does patient need a safe tray?: No
07/29/24 15:12
CT Cervical Spine W/o Iv Contr Urgent
Comment:
Reason For Exam: neck pain after fall
Ankle, left 3 view CR [CR Ankle - Left Min 3 Views ] Urgent
Comment:
Reason For Exam: fall, left ankle pain
CR Leg Tibia/fibula Left 2 Vw Urgent
Comment:
Reason For Exam: fall, left leg pain
Pelvis, 1 or 2 Views CR [CR Pelvis - 1 Or 2 Views ] Urgent
Comment:
Reason For Exam: fall
07/29/24 15:14
CT Head W/o Iv Contrast Urgent
Comment:
Reason For Exam: fall
07/29/24 15:40
Basic Metabolic Panel Urgent
Complete Blood Count/With Diff Urgent
NT-proBNP Urgent
Troponin I Urgent
07/29/24 15:57
Type And Crossmatch Urgent
BBK Wristband Number:
07/29/24 18:05
Admit/Transfer Patient As Directed
Co-Sign Provider:
Level of Care: Inpatient admission
Assign to:: Telemetry
Physician / Group: martin
Diagnosis: naomi
Reason for Telemetry: Arrhythmia
Date to Stop Telemetry: 08/01/24
Time to Stop Telemetry: 11:00
Reason for Hospitalization: NAOMI
Expected length of stay greater than two midnights?: Yes
ELOS- Estimated Length of Stay in days: 3
I certify the patient meets the requirements for IP care: Yes
07/29/24 18:06
PRN Pain Medication Management As Directed
May give lesser potent ordered pain med per pt: Yes
preference::
Protocol:: Medication orders for pain may be administered in a
manner that supports deferring to patient preference
when the pt is:
- Requesting an ordered lesser potent pain medication.
Least to most potent pain medications are defined
as: acetaminophen < NSAID < tramadol < opioids
(morphine, oxycodone, hydromorphone).
- Requesting a lesser dose of the same medication IF
ORDERED.
- Requesting a less intrusive route of administration
if both routes are prescribed by the provider (PO <
IV).
07/29/24 18:08
Code Status As Directed
Resuscitation Status: Full Code
07/29/24 18:15
Urinalysis Reflex To Culture Routine
CR Chest - 2 Views Stat
Comment:
Reason For Exam: sob
07/29/24 20:07
Acetaminophen [Tylenol] 650 mg PO Q4HPRN PRN
Apixaban [Eliquis] 5 mg PO BID
Artificial Tears (Pf) [Refresh Eye Drops (Pf)] 1 drops BOTH EYES QIDPRN PRN
Bisacodyl [Dulcolax] 10 mg RECTAL [id number] PRN
Buspirone [Buspar] 10 mg PO BID
Carvedilol [Coreg] 12.5 mg PO BID
Dextrose 50%-Water [Dextrose 50% Syringe] 12.5 grams IV [id number] PRN
Docusate W/Senna [Senokot-S] 1 tablet PO BIDPRN PRN
Gabapentin [Neurontin] 300 mg PO BID
Glucagon [GlucaGen] 1 mg IM PRN PRN
Polyethylene Glycol Powder [Miralax] 17 grams PO DAILYPRN PRN
fluticasone propion-salmeterol [Wixela Inhub] 1 inh INH R BID
07/29/24 20:07
Activity As Directed
Activity Level: As Tolerated
Bedside Glucose Monitoring As Directed
Frequency: AC&HS
Additional Instructions:: Change to q6h if pt on TPN, tube feeding or not eating
Intake/ Output As Directed
Frequency: Per unit guidelines
Vital Signs As Directed
Frequency: Per unit guidelines
Weight As Directed
Frequency: Daily
Bipap [RESP] Routine
Patient to use own unit?: No
Inspiratory Pressure (cm H2O): 16
Expiratory Pressure (cm H2O): 8
07/29/24 22:00
Atorvastatin [Lipitor] 10 mg PO HS
insulin glargine [Lantus Solostar U-100 Insulin] 7 unit SC HS
07/30/24 06:00
Basic Metabolic Panel IN AM
Complete Blood Count/No Diff IN AM
Glycohemoglobin (HgbA1c) IN AM
Occupational Therapy Consult [Ot Eval And Treat] IN AM
Physical Therapy Consult [Pt Eval And Treat] IN AM
Activity Level: As Tolerated
07/30/24 07:30
Insulin Aspart Corrective Low [Novolog Flexpen-Low Resistance] See Protocol SC AC
07/30/24 08:00
Escitalopram Oxalate [Lexapro] 20 mg PO DAILY
Pantoprazole [Protonix] 40 mg PO DAILY
Polyethylene Glycol Powder [Miralax] 17 grams PO DAILY
07/31/24 06:00
Basic Metabolic Panel IN AM
Complete Blood Count/No Diff IN AM
08/01/24 06:00
Basic Metabolic Panel IN AM
Complete Blood Count/No Diff IN AM
08/01/24 11:00
DC Protocol for Telemetry ONCE
08/02/24 06:00
Basic Metabolic Panel IN AM
Complete Blood Count/No Diff IN AM
08/03/24 06:00
Basic Metabolic Panel IN AM
Complete Blood Count/No Diff IN AM
Abnormal Lab Results
07/29/24
15:40
WBC 14.2 H 10^3/uL
(4.8-10.8)
RBC 3.68 L 10^6/uL
(4.70-6.10)
Hgb 11.2 L g/dL
(13.0-18.0)
Hct 33.4 L %
(39.0-52.0)
RDW 15.9 H %
(11.5-14.5)
MPV 13.0 H fL
(7.4-10.4)
Abs Immat Gran (auto) 0.2 H 10^3/uL
(0-0.05)
Absolute Neuts (auto) 10.7 H 10^3/uL
(1.4-6.5)
Absolute Monos (auto) 0.9 H 10^3/uL
(0.1-0.6)
Immature Gran % 1.5 H %
(0-0.5)
Neutrophils % 75.5 H %
(42.2-75.2)
Lymphocytes % 14.9 L %
(20.5-51.1)
Carbon Dioxide 32 H mmol/L
(22-30)
BUN 44 H mg/dl
(9-20)
Creatinine 2.2 H mg/dL
(0.7-1.3)
Glucose 152 H mg/dl
(70-99)
07/29/24 15:40
07/29/24 15:40
Vital Signs
Initial and Last Documented VS:
Initial Vital Signs
Temp Pulse Resp BP Pulse Ox
98.1 F 76 18 93/46 95
07/29/24 14:22 07/29/24 14:22 07/29/24 14:22 07/29/24 14:22 07/29/24 14:22
Last Documented Vital Signs
Temp Pulse Resp BP Pulse Ox
98.1 F 85 21 115/45 92
07/29/24 14:22 07/29/24 20:00 07/29/24 20:00 07/29/24 19:16 07/29/24 18:15
MDM/Problems Addressed
Differential Diagnosis Includes:
Left ankle fracture, left tibia fracture, intracranial hemorrhage, C-spine fracture
MDM/Problems Addressed:
73-year-old male with fall, acute renal failure, left proximal fibula fracture. Admit to hospitalist.
Chronic conditions affecting care: Arrhythmia
Acute Exacerbation and/or Progression of Chronic Illness: CAD and Cardiomyopathy
*Radiology
Radiology exam reviewed: radiology read reviewed (Head CT no acute findings, cervical spine x-ray no acute findings, left tib-fib x-ray proximal left fibula fracture, pelvics x-ray no acute findings, left ankle no acute findings)
*Pulse Oximetry
Patient hypoxic: no
*EKG
Interpreted by ED Provider?: NA
*Critical Care Note
Total Time (30-74mins, 75-104mins- exclusive of procedures): Not Applicable
ED Attending Note
-
Portions of this chart may have been created with voice recognition software.� Occasional wrong word or��sound alike� substitutions may have occurred due to the inherent limitations of voice recognition software.
Discharge Plan
Departure
Patient Disposition: Admit
Date of Disposition: 07/29/24
Time of Disposition: 17:18
Admit to: IMU
Presentation/result/management discussed w/ accepting MD/DO: Hospitalist
Patient with high blood pressure during this ER visit?: No
Condition: Fair
Discharge Problem:
NAOMI (acute kidney injury), Cardiomyopathy, Closed fracture of fibula, proximal, left
Interventions
Interventions:
*Risk Screen - Suicide Last Done: 07/29/24 14:22
*General Assessment Last Done: 07/29/24 14:22
*Neglect/Abuse Screening Last Done: 07/29/24 14:22
ED- Fall Risk Assessment Last Done: 07/29/24 20:18
*Nursing Disposition Last Done: 07/29/24 20:18
ED-Musculoskeletal Assessment Last Done: 07/29/24 17:14
Discharge Date and Time
Discharge Date/Time: 07/29/24 20:19
[2024-07-29 15:46] LABS: % Basophils 0.5 % (0-2); % Eosinophils 1.4 % (0-6); % Immature Granulocytes 1.5 % (0-0.5); % Lymphocytes 14.9 % (20.5-51.1); % Monocytes 6.2 % (1.7-9.3); % Neutrophils 75.5 % (42.2-75.2); Absolute Basophils 0.1 10^3/uL (0-0.2); Absolute Eosinophils 0.2 10^3/uL (0-0.7); Absolute Immature Granulocytes 0.2 10^3/uL (0-0.05); Absolute Lymphocytes 2.1 10^3/uL (1.2-3.4); Absolute Monocytes 0.9 10^3/uL (0.1-0.6); Absolute Neutrophils 10.7 10^3/uL (1.4-6.5); Hematocrit 33.4 % (39.0-52.0); Hemoglobin 11.2 g/dL (13.0-18.0); Mean Corp Hgb Conc. 33.5 g/dL (33.0-37.0); Mean Corpuscular Hgb 30.4 pg (27.0-31.0); Mean Corpuscular Volume 90.8 fL (80.0-94.0); Nucleated Red Blood Cells % 0 % (-); Platelet Count 210 10^3/uL (130-400); Red Blood Cell Count 3.68 10^6/uL (4.70-6.10); Red Cell Dist. Width 15.9 % (11.5-14.5); White Blood Cell Count 14.2 10^3/uL (4.8-10.8)
[2024-07-29 16:13] LABS: NT-proBNP 381 pg/ml; Troponin I < 0.012 ng/ml
[2024-07-29 16:20] LABS: Blood Urea Nitrogen 44 mg/dl (9-20); Carbon Dioxide 32 mmol/L (22-30); Chloride 99 mmol/L (98-107); Estimated Creatinine Clearance 37 ml/min; Glucose 152 mg/dl (70-99); Sodium 140 mmol/L (135-145); eGFR 30.47
--- NOTE | 2024-07-29 17:23 | HPS.HSE ---
Family Physician
-
Family Physician: * NONE
Chief Complaint
-
Left leg pain
History of Present Illness
73-year-old male with past medical history for obstructive sleep apnea, pneumonia, CHF, complete heart block, lung disease, A-fib, coronary artery disease, hypertension presented to us with fall .patient stated he fell from the bed .since then his
left leg and tailbone hurts .patient cannot put any weight on his left leg. Patient stated chronic lower extremities edema and short of breath. Patient denies any chest pain.patient denied any headache, dizziness, syncopal episode .patient denied
any fever.patient denied any abdominal pain, nausea, vomiting, diarrhea. Patient denied dysuria,hematuria.
X-ray with femur shaft fracture. Admitting for further management
On arrival patient was hypotensive.
Medical History
Past Medical History
Past Medical History: Reports Other
Additional Past Medical History:
Obstructive sleep apnea
Pneumonia
CHF
Pacemaker
Complete heart block
Lung disease
Paroxysmal A-fib
Coronary artery disease
Hypertension
Past Surgical History: Reports Other
Additional Past Surgical History:
Laminectomy
Hip fracture repair
Tonsillectomy
Social History
Tobacco: Non-smoker
Alcohol: None
Drug: None
Personal: Single
Living: Alone
Family History
Family History: Not pertinent
Allergies / Home Medications
Allergies reflects when Allergies were last updated in [email or web address].
Home Medications with original date entered in [email or web address]
Allergy/Medication List:
Allergies
Allergy/AdvReac Type Severity Reaction Status Date / Time
No Known Allergies Allergy Verified 05/16/24 18:50
Home Medications
atorvastatin 10 mg tablet (Lipitor) 10 mg PO HS High cholesterol 09/04/22
escitalopram oxalate 20 mg tablet (Lexapro) 20 mg PO DAILY Depression 09/04/22
fluticasone 100 mcg-salmeterol 50 mcg/dose blistr powdr for inhalation (Wixela Inhub) 1 inh inhalation R BID Lung/breathing issues 09/05/22
apixaban 5 mg tablet (Eliquis) 5 mg PO BID Blood thinner #30 tabs 05/06/23
gabapentin 300 mg capsule 300 mg PO BID Pain 06/12/23
buspirone 10 mg tablet 10 mg PO BID Mental Health/Anxiety 11/27/23
pantoprazole 40 mg tablet,delayed release (Protonix) 40 mg PO DAILY Gastrointestinal Issue 11/27/23
carvedilol 12.5 mg tablet 12.5 mg PO BID Blood pressure #10 tabs 01/30/24
hydralazine 50 mg tablet 50 mg PO TID Blood Pressure 04/09/24
insulin glargine 100 unit/mL (3 mL) subcutaneous pen (Lantus Solostar U-100 Insulin) 15 unit SC HS Diabetes 04/09/24
insulin lispro 100 unit/mL subcutaneous solution 0 sliding scale dose SC AC Diabetes 04/09/24
losartan 100 mg tablet 100 mg PO DAILY Blood Pressure 04/09/24
polyvinyl alcohol-povidone (PF) 1.4 %-0.6 % eye drops in a dropperette (Refresh Classic (PF)) 1 drops BOTH EYES QIDPRN PRN dry eyes 04/09/24
empagliflozin 10 mg tablet (Jardiance) 10 mg PO DAILY #0 tabs 06/03/24
furosemide 80 mg tablet 80 mg PO DAILY #0 tabs 06/03/24
polyethylene glycol 3350 17 gram oral powder packet (HealthyLax) 17 g PO DAILY #0 ea 06/03/24
Review of Systems
-
Constitutional: Reports No Symptoms
EENT: Reports No Symptoms
Respiratory: Reports Trouble Breathing (Chronic)
Cardiac: Reports No Symptoms
Abdomen/GI: Reports No Symptoms
: Reports No Symptoms
Musculoskeletal: Reports Other (Left lower extremities pain)
Skin: Reports No Symptoms
Neurological: Reports No Symptoms
Endocrine: Reports No Symptoms
Hematologic/Lymphatic: Reports No Symptoms
Psych: Reports No Symptoms
Physical Exam
Vital Signs
Vital Signs
Temp Pulse Resp BP Pulse Ox
98.1 F 73 23 133/97 95
07/29/24 14:22 07/29/24 17:15 07/29/24 17:15 07/29/24 17:00 07/29/24 17:15
Physical Exam
General: Well Developed, Well Nourished and No Apparent Distress
HEENT: NormoCephalic, Moist mucous membranes and Atraumatic
Respiratory: Clear
Cardiac: S1/S2 and Regular Rhythm; No Murmur or Rub
GI: Soft, Non Tender, Non Distended and Normal Bowel Sounds; No Organomegaly
Rectal: Deferred by Provider
Musculoskeletal: No Clubbing, No Cyanosis and Other (Bilateral lower extremities edema, right greater than left)
Skin: No Rash
Neuro: AO x 3 and Nonfocal/grossly intact
Psych: Calm
Laboratory Results
-
07/29/24 15:40
07/29/24 15:40
Laboratory Results
Total Bilirubin Cancelled 07/29/24 15:40
AST Cancelled 07/29/24 15:40
ALT Cancelled 07/29/24 15:40
Alkaline Phosphatase Cancelled 07/29/24 15:40
Troponin I < 0.012 ng/ml 07/29/24 15:40
Data Reviewed
-
Diagnostic Radiology: Report Reviewed by me
CT Scan: Report Reviewed by me
Lab Data: Labs Reviewed by me
Impression/Plan
-
# Acute renal failure on chronic kidney disease stage III
-Creatinine 2.2
-Continue to monitor
# Fall with left proximal fibula fracture
-As per orthopedics-use crutches or walker, weight-bear as tolerated
-Follow-up with orthopedics in 4 weeks for x-rays
-Tib-fib x-ray with impression of Minimally displaced proximal fibular shaft fracture.
-Head CT no acute intracranial abnormality noted
-Pelvis x-ray with impression of right femur intramedullary shakir and screw fixation without evidence of hardware complication. There is no evidence of acute fracture.
-Cervical spine CT wth no acute findings.
-Ankle x-ray with impression of Slight irregularity along the medial and lateral malleolus however no discrete fracture is visualized.
# Leukocytosis likely stress reaction
-WBCs 14.2
-Patient is afebrile
-Continue to monitor
# Anemia of chronic disease
-Creatinine 11.2
-No active bleeding
-Continue to monitor
#acute hypoxic likely CHF exacerbation
-BNP 381
-obtain chest x ray
-strict I *O
-daily weight
- recent Echo with preserved EF with pulmonary HTN
-Lasix continued
#Non-ischemic myocardial injury
#Hx of CAD
#Persistent Afib s/p PPM
- L and R heart cath for 05/24/24 showing elevated filling pressures, pulmonary hypertension
-Jardiance continued
-Cont Eliquis, Coreg
-hold losartan and hydralzine due to NAOMI and soft BP
#Restrictive lung disease
#EARL
-BiPap continued
#DM type 2 with nephropathy
-Insulin SS, DM diet, Lantus
#HLD
-statin continued
#Anxiety
-Lexapro,buspirone continued
#GERD
-PPI continued
#Morbid obesity with BMI
cont home meds
advise to decrease calorie intake
DVT prophylaxis�Eliquis
Full code
--- NOTE | 2024-07-29 17:44 | PHANOTE ---
Med Rec Note:
Pt stated to call his sister about his medications. Called pt's sister Kyra, sister stated she did not know his medications 'i'm not at his apartment', then stated it should be the same as his recent discharge (pt discharged in May 2024). Pt's
sister stated EMT's took a photo of pt's medication list. Advised pt's sister that we do not receive that photo and it is for EMS' record. Pt's sister stated we should have his list because [facility] was just at his apartment today.
Called [facility], office closed.
Home med list compiled from Discharge in May, EMS face sheet (no dosage or frequency provided) and Dr Whitt. Home med list left unconfirmed.
--- NOTE | 2024-07-29 18:12 | W.PN.UPDATE ---
Update Note
Progress Note Update
This is an addendum to H&P written by FOLDER HAND Tara Null
I saw and examined the patient.
The FOLDER HAND's note was reviewed and I agree with the note.
Comment:
Mr. Wisam Connolly is a 73 yo man with hx persistent afib on Eliquis, HFpEF, CKD III, restrictive lung disease, EARL, DM II presents post fall resulting in left leg pain. Patient has been feeling weak over past couple of days with increased swelling
lower extremities. He lives alone.
Triage VS: T 98.1, P 76, RR 18, BP 98/46, SpO2 95%
On exam patient is tachypneic, + rales, obese, b/l LE swelling R > L
LABS: WBC 14.2, Hg 11.2, PLT 210, Na 140, K+ hemolyzed, BUN 44, Cr 2.2, Glucose 152, BNP 381
Tibia/Fibula
IMPRESSION:
Minimally displaced proximal fibular shaft fracture.
Left Leg pain
Minimally Displaced Proximal Fibular Shaft Fracture
Reactive leukocytosis from above
-case discussed with ortho - OK for weight bearing as tolerated with crutches or walker
-follow up in office in 4 weeks for x-rays (per Dr. Franklin)
-PT/OT
Heart Failure preserved EF Acute Exacerbation
-he is on lasix 80mg PO QD
-obtaining CXR
-admit to telemetry
-want to give IV Lasix but need to wait for repeat K - then will order lasix 80mg IV BID
-monitor renal function closely
-strict I/O, daily weights
Acute on chronic kidney injury
-in setting of volume overload
-monitor closely with diuresis
-renal consult if no improvement
-hold Losartan
-bladder scans with PRN straight cath
Permanent Atrial Fibrillation on Eliquis
-INDUSTRIAL SPECIALIST Coreg
Essential HTN
-patient was hypotensive in beginning of ER say
-hold INDUSTRIAL SPECIALIST Losartan
-hold Hydralazine for now - resume if hypertensive
-Coreg with hold parameters
IDDM
-lantus 7 units qhs (home dose 15) - adjust as needed
-ISS
Remainder of plan per FOLDER HAND note
76 minutes on patient evaluation
[2024-07-29] MEDS: ADVAIR HFA 45/21 MCG INHALER 2 PUFF INH (20:50)
[2024-07-29 21:13] LABS: ALT (SGPT) 16 U/L (0-50); AST (SGOT) 17 U/L (17-59); Albumin 3.3 g/dl (3.5-5.0); Alkaline Phosphatase 56 U/L (38-126); Direct Bilirubin 0.2 mg/dl (0.0-0.4); Total Bilirubin 1.3 mg/dl (0.2-1.3)
[2024-07-29 21:22] LABS: Total Protein 5.9 g/dl (6.3-8.2)
[2024-07-29 21:52] LABS: Glucose - Point of Care 202 mg/dl (70-99)
[2024-07-29] MEDS: NEURONTIN 300 MG PO (21:54)
[2024-07-29] MEDS: ELIQUIS 5 MG PO (21:54)
[2024-07-29] MEDS: LANTUS 0.07 UNITS SC (21:54)
[2024-07-29] MEDS: LASIX 80 MG IV (21:54)
[2024-07-29] MEDS: LIPITOR 10 MG PO (21:54)
[2024-07-29] MEDS: COREG 12.5 MG PO (21:54)
[2024-07-29] MEDS: BUSPAR 10 MG PO (21:54)
[2024-07-29] MEDS: TYLENOL 650 MG PO (21:59)
--- NOTE | 2024-07-29 22:00 | PTCARENOTE ---
Patient admitted from ED. Patient AAO x3, on 2LNC, complaining of left leg pain. Patient placed on telemetry monitoring. Vitals stable. Patient oriented to room and call jimenez within reach.
[2024-07-30] VITALS (21 sets, daily range): BP systolic 64–127; BP diastolic 32–88; PULSE 2–68; O2SAT 95; BMI 35.8
[2024-07-30] MEDS: ProAmatine 5 MG PO ×2 (00:22→00:36)
[2024-07-30] MEDS: NSS 250 IV (00:37)
--- NOTE | 2024-07-30 00:44 | W.PN.UPDATE ---
Addendum entered and electronically signed by LUCRETIA Crowell 07/30/24 04:52:
BP started to trending down gradually after fluids and midodrine that were given earlier, currently SBP in 80s and MAP in 50s. Will start Levophed and transfer the patient to IMU for med administration.
Original Note:
Update Note
Progress Note Update
Patient is hypotension with bp 64/32, hr in 60s. Patient received earlier IV Lasix 80mg, and carvedilol 12.5mg. Will give one time order of IVF 250cc of NSS and midodrine 10mg one dose.
Will hold Coreg, Lasix and add cardiology consult as recommended by the admitting physician.
--- NOTE | 2024-07-30 02:15 | PTCARENOTE ---
Patient became hypotensive - BPs reading 60s/30s with doppler. Patient staes he is asymptomatic. [facility] came to see patient. Patient given 10 mg Midrodrine and a 250 mL bolus. Patient's BP improved to 96/47. Will continue to monitor.
--- NOTE | 2024-07-30 05:54 | PTCARENOTE ---
Report given to SEGUNDO [place]. Patient transferred to IMU.
--- NOTE | 2024-07-30 06:00 | PTCARENOTE ---
Pt arrived to floor via transfer from . Pt transferred to IMU level care for continued hypotention. BP upon arrival 122/56, once settled in bed 116/79, No need to initiate levophed at this time. Pt 100% V-Paced on the monitor with HR in the 50's.
Pt AAOx3. POX 92% on BIpap 16/. Lungs dec T/o. Round obese abd. Pt inc of urine upon arrival, Fatmata care provided. +2 B/L LE edema noted. Weak pedal pulses. Left leg pain noted. Heels elevated on pillows. Pale skin. Right forearm int capped at this
time. Pt positioned per comfort. Will continue to monitor.
[2024-07-30] MEDS: ADVAIR HFA 45/21 MCG INHALER 2 PUFF INH ×2 (07:55→19:37)
[2024-07-30] MEDS: PROTONIX 40 MG PO (08:46)
[2024-07-30] MEDS: NEURONTIN 300 MG PO ×2 (08:46→20:21)
[2024-07-30] MEDS: MIRALAX 17 GRAMS PO (08:47)
[2024-07-30] MEDS: BUSPAR 10 MG PO ×2 (08:47→20:21)
[2024-07-30] MEDS: LEXAPRO 20 MG PO (08:47)
[2024-07-30] MEDS: ELIQUIS 5 MG PO ×2 (08:47→20:21)
[2024-07-30] MEDS: NOVOLOG FLEXPEN-LOW RESISTANCE SC ×2 (08:48→18:32)
[2024-07-30 08:49] LABS: Glucose - Point of Care 133 mg/dl (70-99)
--- NOTE | 2024-07-30 08:52 | WOUNDNOTE ---
[facility] RN note: Patient admitted with minimally displaced L femur fracture, patient slipped and fell when he was trying to get OOB to get his phone which had fallen onto the floor. Patient lives alone in [place].
See H&P for complete history.
PMH: a fib, CHF, CKD3, restrictive lung disease, EARL, DM.
Wound Location and type/assessment: Patient admitted with: R great toenail bed base dried blood from traumatic removal of his L great toenail with his fall. No erythema. No drainage noted. +1 LE edema. Patient stated LE edema is not new. +Pedal
pulses heard via portable Doppler. Toes warm. Coccyx with healing MASD. Penis/scrotal skin MASD.
Appetite: good.
Pressure redistribution devices in place: Centrella Max air bed. Patient cannot to turn self in bed.
Plan: Dressing applied to R great toe. Protective silicone border foam applied to sacral/buttocks. Patient turned to R semi side lying position with help from RN/PCT Mariela. Heels off bed with pillow. Air chair cushion given. t/c SPD and ordered
TruVue lite boots. Discussed with SEGUNDO Prince.
Will confirm orders with hospitalist service.
Care plan to be updated and will follow as needed.
Note to case management of equipment requested for discharge: Air mattress at SNF/rehab if mobility doesn't improve.
Recommend follow up with media operator.
--- NOTE | 2024-07-30 09:34 | CON.CAR ---
Addendum entered and electronically signed by Saroj Lal MD 07/30/24 16:10:
I saw and examined the patient.
The SUPERVISOR [employer]'s note was reviewed and I agree with the note.
Comment: 73-year-old gentleman with past medical history of CAD, PAF on Eliquis, Medtronic pacemaker and heart failure reduced EF with an improved ejection fraction on last check, type 2 diabetes CKD stage III EARL and gout presents after falling out
of bed for weakness. He is noted to have a femur fibula fracture. We are asked to comment whether or not he has heart failure. He thinks his leg is very painful. He feels short of breath but it does not seem that that is a new issue for him. On
exam he is morbidly obese, but I do not appreciate any JVP. Lungs are clear to auscultation. He had a regular rate and rhythm. Extremities have trace edema. Chest x-ray does not show acute pulmonary edema. Labs show worsening anemia. Review of
his rates show that it is close to his baseline. He says it has been stable at home. Overall, I do not think he has an acute CHF exacerbation. He has chronic heart failure and is almost at his baseline weight. I would not pursue aggressive IV
diuresis. Would continue p.o. Lasix as blood pressure allows. Will lay her back on GDMT as able. Currently Coreg and Jardiance on hold I am not sure why he has NAOMI and hypotension. For his PAF, he is on Eliquis, we will need to monitor this as
his hemoglobin dropped over the last 24 hours. Unclear why he has an NAOMI. I discussed my concerns of his anemia and NAOMI with Dr. Betts. He will evaluate further. We will follow.
Original Note:
Consultation
Consultation Request
Date/Time Consultation Requested: 07/30/24 2a
Date/Time Consultation Performed: 07/30/24 9a
Requesting Provider: LUCRETIA Crowell
Performing Provider: LUCRETIA Fofana for Dr. Lal
Reason for Consultation: SOB
Medical History
-
Chief Complaint: fall out of bed, weakness
History of Present Illness:
Mr. Connolly is a 73 yo male with CAD, paroxysmal atrial fibrillation on Eliquis, AV block status post PPM (Medtronic), HFrEF => HFimproved EF/with recovered EF, type 2 diabetes mellitus, CKD stage 3, gout, and EARL on BiPAP, who presented to the ER
with c/o falling out of bed, left leg pain and weakness. He is admitted to the hospitalist service and we are consulted for heart failure, proBNP 381. He became hypotensive last night 64/32 in the ER and was given Midodrine and 250ml IV fluid
bolus, admitted to the IMU. He did not require Levophed and BP is now stable. His Coreg, losartan, hydralazine, and Lasix are all held for hypotension and NAOMI. Xrays show a left minimally displaced proximal fibular shaft fracture. He c/o SOB.
Past Medical History
Past Medical History: Other (as above)
Past Surgical History: Other (as above)
Social History
Personal: Single
Living: Alone
Family History
Family History: Reviewed & Not Pertinent
Allergies / Home Medications
Allergy/AdvReac Type Severity Reaction Status Date / Time
No Known Allergies Allergy Verified 05/16/24 18:50
�Medication �Instructions �Recorded �Confirmed �Type
atorvastatin 10 mg tablet (Lipitor) 10 mg PO HS High cholesterol 09/04/22 07/29/24 History
escitalopram oxalate 20 mg tablet 20 mg PO DAILY Depression 09/04/22 07/29/24 History
(Lexapro)
fluticasone 100 mcg-salmeterol 50 1 inh inhalation R BID 09/05/22 07/29/24 History
mcg/dose blistr powdr for Lung/breathing issues
inhalation (Wixela Inhub)
apixaban 5 mg tablet (Eliquis) 5 mg PO BID Blood thinner #30 tabs 05/06/23 07/29/24 Rx
gabapentin 300 mg capsule 300 mg PO BID Pain 06/12/23 07/29/24 History
buspirone 10 mg tablet 10 mg PO BID Mental Health/Anxiety 11/27/23 07/29/24 History
pantoprazole 40 mg tablet,delayed 40 mg PO DAILY Gastrointestinal 11/27/23 07/29/24 History
release (Protonix) Issue
carvedilol 12.5 mg tablet 12.5 mg PO BID Blood pressure #10 01/30/24 07/29/24 Rx
tabs
hydralazine 50 mg tablet 50 mg PO TID Blood Pressure 04/09/24 07/29/24 History
insulin glargine 100 unit/mL (3 15 unit SC HS Diabetes 04/09/24 07/29/24 History
mL) subcutaneous pen (Lantus
Solostar U-100 Insulin)
insulin lispro 100 unit/mL 0 sliding scale dose SC AC Diabetes 04/09/24 07/29/24 History
subcutaneous solution
losartan 100 mg tablet 100 mg PO DAILY Blood Pressure 04/09/24 07/29/24 History
polyvinyl alcohol-povidone (PF) 1 drops BOTH EYES QIDPRN PRN dry 04/09/24 07/29/24 History
1.4 %-0.6 % eye drops in a eyes
dropperette (Refresh Classic (PF))
empagliflozin 10 mg tablet 10 mg PO DAILY #0 tabs 06/03/24 07/29/24 Rx
(Jardiance)
furosemide 80 mg tablet 80 mg PO DAILY #0 tabs 06/03/24 07/29/24 Rx
polyethylene glycol 3350 17 gram 17 g PO DAILY #0 ea 06/03/24 07/29/24 Rx
oral powder packet (HealthyLax)
Review of Systems
-
History Source: Patient
All other systems: Negative unless noted
Physical Exam
Vital Signs
Temp Pulse Resp BP Pulse Ox
98.1 F 52 18 127/88 95
07/30/24 07:30 07/30/24 08:00 07/30/24 08:00 07/30/24 08:00 07/30/24 08:00
Lab Results
Troponin I < 0.012 ng/ml 07/29/24 15:40
Kkc-N-Zawgnnwmizv Pept 381 pg/ml 07/29/24 15:40
Physical Exam
General: Well Developed
HEENT: Normocephalic, Anicteric and Moist Mucous Membranes
Respiratory: Clear and Non Labored Respirations
Cardiac: S1/S2, Regular Rhythm and Peripheral Edema (mild b/l LE)
Breast: Deferred by me
GI: Soft, Non Tender, Non Distended and Normal Bowel Sounds
Rectal: Deferred by Provider
Genito-urinary: No Costovertebral Tender
Musculoskeletal: No Clubbing and No Cyanosis
Skin: Warm and Dry
Neuro: AO x 3
Psych: Calm
Impression / Plan
-
HFpEF - acute on chronic.
- his weight is up mildly from last admission, d/c 06/05/24 weight 246 lbs and admit weight 07/29/24 251 lbs now down to 249 lbs.
- he states weight at home is 246 lbs on Lasix 80mg daily.
- agree with IV Lasix as BP tolerates; he was hypotensive and Lasix is held.
- proBNP 381.
- he is on Jardiance as an outpatient.
- daily weight, I/Os, and follow BMP.
- Echo 05/17/2024: LVEF 60-65%, mild cLVH, no significant valve disease, right heart pressure could not be estimated.
- Cath 07/2020: PCWP 23, RA 15, PA 60/30. Mild CAD.
- Cath 05/24/2024: Weight 258 lbs, RA 15, PCWP 25, PA 65/30; no new obstructive CAD.
NAOMI - acute on CKD 3.
- Losartan, Lasix and Jardiance are held.
- monitor BMP, baseline creatinine 1.3.
CAD - stable w/o angina.
- no new obstructive lesions on cath 05/24/24.
- continue Lipitor and Eliquis.
Persistent atrial fibrillation - rate controlled.
- A sense, V paced on tele.
- denies palpitations.
- Oral Anticoagulation: Eliquis 5mg BID, continue.
- [id number]: score at least 6 (Heart failure, HTN, age 75 or more, Diabetes Mellitus, Vascular disease).
HTN - stable.
- had hypotension in the ER improved with Midodrine and 250ml IV fluid bolus.
- monitor and resume outpatient meds as able.
Heart block - S/p Medtronic PPM.
- stable with normal function.
Type II DM - per hospitalist.
Fall sustained left tib/fib fracture - per hospitalist.
Data Reviewed
-
EKG: Tracing Personally Visualized and interpreted (Asensed, Vpaced 83 bpm )
Radiology: Report Reviewed by me (CXR: No acute cardiopulmonary abnormality. ) and Other (left tib/fib: Minimally displaced proximal fibular shaft fracture.)
CT Scan: Report Reviewed by me (head negative)
Labs: Labs Reviewed by me
Old Records: Reviewed
--- NOTE | 2024-07-30 09:35 | CM ---
Addendum entered by Lesly Echeverria 07/30/24 13:48:
CM called to review discharge plan with patient sister, Kyra. Patient sister states that she has arranged for a private aide 7/8 hours daily - and she and her take care of the weekends at patient home in [facility]. Patient has
had [facility] in the past and requested [facility] when discharged. Patient will not have any aides available this weekend until Friday. CM will update physician and patient sister is requesting a phone call. Patient will need transportation home; ambulance is
requested by family. CM will continue to follow for discharge planning needs.
Plan; home with [facility] pending acceptance.
Addendum entered by Lesly Echeverria 07/30/24 10:08:
additional stay at [facility] 05/29
Addendum entered by Lesly Echeverria 07/30/24 10:01:
Review of patient chart from [id number]; Patient has been in the following SNF's or family stated that he has been in them previous to this time frame. 2022- [facility], [facility], [facility] 07/28, [facility] was [facility] 11/29, [facility]
06/28,01/27, and [facility] 06/29.
Addendum entered by Lesly Echeverria 07/30/24 09:41:
Per chart review; Patient indicates that he lives alone in a 2nd floor apartment in elevator building with no steps to enter. GRIDDLE ATTENDANT patient used a RW and has a W/CH. His sister provides services for errands, chores and she prepares his meals. Patient
has no in-home services other than his sister. Patient does not drive or work. He was recently in [facility]. Pharmacy is [facility] in [facility] and PCP is Dr. Alexander Mar in [place].
Original Note:
Patient seen at bedside. Patient on phone with sister. Patient stated that SNF; [facility] was terrible and he now was planning to go to his home with his sister to help care for him. Patient in agreement with but declined SNF consideration.
Patient stated he left SNF approx 2 weeks ago. Patient stated that he does not have PCP in [place] and agreed to consider resident clinic for care. Patient aware that he would have to go to the clinic but was asking about physicians that visit home. CM
will continue to follow for discharge planning needs.
Plan; home with VN and sister vs SNF
--- NOTE | 2024-07-30 09:47 | W.PN.UPDATE ---
Update Note
Progress Note Update
73 y/o M with PMHx persistent afib on Eliquis, HFpEF, CKD III, restrictive lung disease, EARL, DM II presents post fall resulting in left leg pain. Patient has been feeling weak over past couple of days with increased swelling lower extremities. He
lives alone.
Gen: NAD, Awake and alert, NCAT
Eyes: EOMI, PERRLA, no scleral icterus.
Neck: supple.
CV: RRR, +S1/S2, no m/r/g.
Resp: Faint rales in the right base, otherwise clear to auscultation bilaterally
Abd: +BS, soft, NT, ND
Skin: No rashes. Trace bilateral lower extremity edema
Neuro: CN 2-12 intact, non-focal.
Psych: Normal mood and affect.
Tibia/Fibula Xray: Minimally displaced proximal fibular shaft fracture.
Left Leg pain due to minimally Displaced Proximal Fibular Shaft Fracture:
-Reactive leukocytosis
-case discussed with ortho, OK for weight bearing as tolerated with crutches or walker
-follow up in office in 4 weeks for x-rays (per Dr. Franklin)
-PT/OT
Acute on chronic HFpEF:
-CXR: No acute cardiopulmonary abnormality. Low lung volumes with elevation of the right hemidiaphragm and likely bibasilar atelectasis.
-proBNP 381
-Initial cardiology consult is recommending IV Lasix. Personally am not seeing evidence of decompensated heart failure at this time. Will discuss with cardiology attending.
-daily wts, I/Os
NAOMI on CKD3:
-holding Losartan
-AM Cr pending
-bladder scans with PRN straight cath
Permanent Atrial Fibrillation:
-cont Coreg/Eliquis
Essential HTN
-patient was hypotensive in beginning of ER say
-hold HEAD OPERATOR SULFIDE Losartan
-holding Hydralazine for now - resume if hypertensive
-Coreg with hold parameters
DM2:
-cont Lantus/SSI/accuchecks
Obesity due to excess calories:
-Encourage weight loss
-Affects all aspects of care
FULL/Eliquis
Total time spent on today's encounter was 50 minutes which included time spent in counseling the patient/family regarding diagnosis and treatment plan as listed above, goals of care, and symptom management. Case was discussed with nursing staff,
specialists, and care coordinators/case management. All labs and imaging personally reviewed by me. Remainder the time spent in detailed review of previous records, lab data, imaging, and other medical provider documentation.
[2024-07-30 13:38] LABS: Hematocrit 26.9 % (39.0-52.0); Hemoglobin 9.3 g/dL (13.0-18.0); Mean Corp Hgb Conc. 34.6 g/dL (33.0-37.0); Mean Corpuscular Hgb 30.9 pg (27.0-31.0); Mean Corpuscular Volume 89.4 fL (80.0-94.0); Mean Platelet Volume 13.5 fL (7.4-10.4); Platelet Count 144 10^3/uL (130-400); Red Blood Cell Count 3.01 10^6/uL (4.70-6.10); Red Cell Dist. Width 15.9 % (11.5-14.5); White Blood Cell Count 9.3 10^3/uL (4.8-10.8)
[2024-07-30 13:41] LABS: Blood Urea Nitrogen 49 mg/dl (9-20); Calcium 8.4 mg/dl (8.4-10.2); Carbon Dioxide 29 mmol/L (22-30); Chloride 99 mmol/L (98-107); Estimated Creatinine Clearance 32 ml/min; Glucose 199 mg/dl (70-99); Potassium 3.7 mmol/L (3.5-5.1); Sodium 136 mmol/L (135-145); eGFR 26.14
[2024-07-30] MEDS: TYLENOL 650 MG PO (13:48)
[2024-07-30 14:02] LABS: Glucose - Point of Care 200 mg/dl (70-99)
--- NOTE | 2024-07-30 14:31 | W.PN.HOSP.TC ---
Today's Communication/Plan
-
Continue PT/OT for lower extremity. Possible CHF, continue to trend daily weights and I/O, Cr. Discuss future discharge planning with embedded case manager.
Assessment / Plan
Assessment / Plan
1. Proximal Fibular Shaft Fracture
- Pt seen and cleared by ortho
- Pt is OK to bear weight as tolerated; can use crutches or walker as needed
- Pt advised to follow up with ortho outpatient in 4 weeks.
- PT/OT as tolerated
2. History of CHF
- CXR shows no acute cardiopulmonary abnormality and bibasilar atelectasis.
- ProBNP 381
- Pt seen by cards; recommend Lasix.
- Daily weights/I/Os
3. Stage 3 Chronic Kidney Disease
- Creatinine 2.2 today; trend Cr in AM
4. HTN
- Hold Losartan and Hydralazine due to hypotensive episode.
- Continue Coreg with hold parameters SBP < 110 or HR < 60
5. A-fib
- Continue Coreg and Eliquis
6. Type 2 DM
- Continue Lantus/ Sliding Scale Insulins
- Accucheck AC/HS
7. Misc
- Follow up with social issues; pt may need to be d/c to terminal worker care facility as he was living alone, and his apartment lease recently ended.
Anticipated Discharge: > 48 hours
Subjective/Interval History
-
Date of Service: July 30, 2024
73M PMhx A-fib on anticoagulation, CKD III, obstructive sleep apnea, type 2 DM, who was admitted last night status post fall and pain to the LLE. Prior to the fall, the patient notes 2 days of weakness and swelling in legs. Pt only complained of
pain in his affected lower extremity.
Objective Data
-
Labs:
Laboratory Results
07/30/24
13:19
WBC 9.3
Hgb 9.3 L
Hct 26.9 L
Plt Count 144 D
Sodium 136
Potassium 3.7
Chloride 99
Carbon Dioxide 29
BUN 49 H
Creatinine 2.5 H
Glucose 199 H
Calcium 8.4
Vital Signs:
Vital Signs
Temp Pulse Resp BP Pulse Ox
98.2 F 75 21 104/56 94
07/30/24 12:25 07/30/24 12:01 07/30/24 12:01 07/30/24 12:01 07/30/24 12:01
I&O
07/29/24 07/30/24 07/31/24
06:59 06:59 06:59
Intake Total 250 / 250 525 / 525
Balance 250 / 250 525 / 525
Review of Systems
-
History Source: Patient
Constitutional: Reports No Symptoms
Respiratory: Reports No Symptoms
Cardiac: Reports No Symptoms
Abdomen/GI: Reports No Symptoms
Musculoskeletal: Reports Joint Pain
Neuro: Reports No Symptoms
Physical Exam
-
General: Well Developed, Well Nourished and No Apparent Distress
HEENT: Normocephalic and Atraumatic
Respiratory: Clear to Auscultation
Cardiac: Regular Rhythm and S1/S2
Musculoskeletal: Other (trace to 1+ bilateral LE edema)
Skin: Warm and Dry
Neuro: Awake and Alert
Psych: Calm
Data Reviewed
-
Diagnostic Radiology: Report Reviewed by me
Labs: Labs Reviewed by me
[2024-07-30] MEDS: NOVOLOG FLEXPEN-LOW RESISTANCE 2 UNITS SC (15:11)
--- NOTE | 2024-07-30 17:12 | W.CON.NEPH ---
Addendum entered and electronically signed by Alla Saavedra MD 07/30/24 19:15:
correction, pt on 2lit O2
Original Note:
Consultation
-
Date/Time Consultation Requested: 07/30/24 1602
Date/Time Consultation Performed: 07/30/24 1715
Requesting Provider: Ramon Bedoya
Performing Provider: Alla Hill
Reason for Consultation: NAOMI with CKD
Medical History
-
Chief Complaint: left leg pain
History of Present Illness:
73-year-old M with past medical history of CAD, PAF on Eliquis, BB, Medtronic pacemaker and heart failure recovered EF on lasix, type 2 diabetes on insulin and Jardiance, CKD stage III baseline cr mid 1 range follows nephro in [place], h/o K stone , HTN
on BB, hydralazine, losartan, anxiety on lexapro, buspirone, EARL on BIPAP and gout presents after falling out of bed on 07/29 and unable to get up. He is noted to have a femur fibula fracture. Patient has chronic lower extremities edema and short
of breath. Patient denies any chest pain, dizziness, syncopal episode .no fever or abdominal pain or nausea or vomiting or diarrhea. Patient denied dysuria. Denies NSAIDs use.
His BPs were low on admit, cr increasing trend from 2.2 to 2.5 hence nephrology consulted. His lasix on hold today. He had CT abd today which rule out any bleed.
Past Medical History
Obstructive sleep apnea
CHF recovered EF
Pacemaker
Complete heart block s/p PPM
Lung disease
Paroxysmal A-fib
Coronary artery disease
Hypertension
IDDM with neuropathy
Past Surgical History: Tonsilectomy and Other (Laminectomy Hip fracture repair Tonsillectomy)
Social History
Tobacco: Non-Smoker
Alcohol: None
Drug: None
Personal: Single
Living: Alone
Family History
no CKD in family
Family History: Not Pertinent
Allergies / Home Medications
Allergy/AdvReac Type Severity Reaction Status Date / Time
No Known Allergies Allergy Verified 05/16/24 18:50
�Medication �Instructions �Recorded �Confirmed �Type
atorvastatin 10 mg tablet (Lipitor) 10 mg PO HS High cholesterol 09/04/22 07/29/24 History
escitalopram oxalate 20 mg tablet 20 mg PO DAILY Depression 09/04/22 07/29/24 History
(Lexapro)
fluticasone 100 mcg-salmeterol 50 1 inh inhalation R BID 09/05/22 07/29/24 History
mcg/dose blistr powdr for Lung/breathing issues
inhalation (Wixela Inhub)
apixaban 5 mg tablet (Eliquis) 5 mg PO BID Blood thinner #30 tabs 05/06/23 07/29/24 Rx
gabapentin 300 mg capsule 300 mg PO BID Pain 06/12/23 07/29/24 History
buspirone 10 mg tablet 10 mg PO BID Mental Health/Anxiety 11/27/23 07/29/24 History
pantoprazole 40 mg tablet,delayed 40 mg PO DAILY Gastrointestinal 11/27/23 07/29/24 History
release (Protonix) Issue
carvedilol 12.5 mg tablet 12.5 mg PO BID Blood pressure #10 01/30/24 07/29/24 Rx
tabs
hydralazine 50 mg tablet 50 mg PO TID Blood Pressure 04/09/24 07/29/24 History
insulin glargine 100 unit/mL (3 15 unit SC HS Diabetes 04/09/24 07/29/24 History
mL) subcutaneous pen (Lantus
Solostar U-100 Insulin)
insulin lispro 100 unit/mL 0 sliding scale dose SC AC Diabetes 04/09/24 07/29/24 History
subcutaneous solution
losartan 100 mg tablet 100 mg PO DAILY Blood Pressure 04/09/24 07/29/24 History
polyvinyl alcohol-povidone (PF) 1 drops BOTH EYES QIDPRN PRN dry 04/09/24 07/29/24 History
1.4 %-0.6 % eye drops in a eyes
dropperette (Refresh Classic (PF))
empagliflozin 10 mg tablet 10 mg PO DAILY #0 tabs 06/03/24 07/29/24 Rx
(Jardiance)
furosemide 80 mg tablet 80 mg PO DAILY #0 tabs 06/03/24 07/29/24 Rx
polyethylene glycol 3350 17 gram 17 g PO DAILY #0 ea 06/03/24 07/29/24 Rx
oral powder packet (HealthyLax)
Review of Systems
-
All complete 12 point ROS have been inquired and found negative other than stated in HPI
Physical Exam
Vital Signs
Vital Signs
Temp Pulse Resp BP Pulse Ox
99.0 F 75 21 104/56 94
07/30/24 16:30 07/30/24 12:01 07/30/24 12:01 07/30/24 12:01 07/30/24 16:43
Lab Results
WBC 9.3 10^3/uL (4.8-10.8) 07/30/24 13:19
RBC 3.01 10^6/uL (4.70-6.10) L 07/30/24 13:19
Hgb 9.3 g/dL (13.0-18.0) L 07/30/24 13:19
Hct 26.9 % (39.0-52.0) L 07/30/24 13:19
Plt Count 144 10^3/uL (130-400) D 07/30/24 13:19
Sodium 136 mmol/L (135-145) 07/30/24 13:19
Potassium 3.7 mmol/L (3.5-5.1) 07/30/24 13:19
Chloride 99 mmol/L (98-107) 07/30/24 13:19
Carbon Dioxide 29 mmol/L (22-30) 07/30/24 13:19
BUN 49 mg/dl (9-20) H 07/30/24 13:19
Creatinine 2.5 mg/dL (0.7-1.3) H 07/30/24 13:19
eGFR 26.14 07/30/24 13:19
Glucose 199 mg/dl (70-99) H 07/30/24 13:19
Calcium 8.4 mg/dl (8.4-10.2) 07/30/24 13:19
Klu-V-Yapjaooyyvv Pept 381 pg/ml 07/29/24 15:40
Albumin 3.3 g/dl (3.5-5.0) L 07/29/24 20:39
CT abd with out contrast:
Findings:
Evaluation is limited by lack of intravenous contrast.
Visualized portion of the lung bases are unremarkable.
Stable right adrenal lipid rich adenoma. Subcentimeter nonobstructing upper pole right renal calculus. No hydronephrosis. The liver, spleen, left kidney, left adrenal gland and pancreas are unremarkable. Gallbladder present.
No abdominal aortic aneurysm.
No enlarged lymph nodes, free fluid, or free air. The bowel is without evidence of obstruction or adjacent inflammatory changes.
Bladder unremarkable. Fat only containing left inguinal hernia redemonstrated.
No suspicious osseous lesions.
IMPRESSION:
1. No significant acute abnormality identified in the abdomen or pelvis, within the limits of unenhanced CT, as described above.
CXR:
IMPRESSION:
No acute cardiopulmonary abnormality.
Low lung volumes with elevation of the right hemidiaphragm and likely bibasilar atelectasis.
leg Xray:
IMPRESSION:
Minimally displaced proximal fibular shaft fracture.
Physical Exam
General: Awake, Alert, Oriented, AOx3, No Distress and Nontoxic
HEENT: EOMI, Anicteric and Conjunctivae Clear
Respiratory: Clear, Normal Excursion and Nonlabored Respirations
Cardiac: S1/S2 and Regular Rate/Rhythm
Breast: Deferred by me
Abdomen: Soft, Nontender and Nondistended
Musculoskeletal: No Cyanosis and Edema (2+chronic more on left pe rpt)
Skin: No Rash
Neuro: Nonfocal/Grossly Intact
Psych: Insight/judgement good and Appropriate
Data Reviewed
-
Radiology: Report Reviewed by me and Discussed with Patient
Labs: Labs Reviewed by me and Discussed with Patient
Assessment/Plan
-
IMP:
Left Leg pain due to minimally Displaced Proximal Fibular Shaft Fracture
Reactive leukocytosis
chronic HFpEF: recovered EF
NAOMI on CKD3
Permanent Atrial Fibrillation
Essential HTN
IDDM2
Obesity due to excess calories
CAD
s/p PPM
h/o K stone
Plan:
A/w fall, left leg fibular fx
NAOMI-likely prerenal specially with hypotension
check UA, no hydro on CT non obst stone of right kidney
follow bladder scan
agree to hold lasix as vol status seem stable and on RA
I am not finding clear source of hypotension, leucocytosis is better
hb low but no bleeding on CT, check cortisol
may need to repeat echo if bP did not improve
cont to hold ARB, Jardiance and other BP meds
labs in am
d/w pt
[2024-07-30 18:05] LABS: Glucose - Point of Care 144 mg/dl (70-99)
[2024-07-30 18:44] LABS: Iron 46 ug/dl (49-181)
[2024-07-30 18:53] LABS: Percent Saturation 21 % (20-50); Total Iron Binding Capacity 217 ug/dl (261-462)
--- NOTE | 2024-07-30 19:22 | PTCARENOTE ---
Cat scan completed, labs added on . Ox3, LC/ 2L NC. 100% Vpaced on tele, +2 le edema. Tubigrip compression placed and fiber filled boots on. Grossly incontinent bowel and bladder. Bladder scanned earlier random 130ml. Unsuccessful at obtaining
Urine specimen. Pleasant, cooperative with care. Complains of pain in the left leg- finally accepted Tylenol dose after several offerings. Sleeping intermittently.
[2024-07-30 20:17] LABS: Folate 6.4 ng/ml (2.76-20); Vitamin B12 400 pg/ml (239-931)
[2024-07-30] MEDS: LIPITOR 10 MG PO (20:21)
[2024-07-30] MEDS: DESENEX/MITRAZOL/ZEASORB 1 APPLIC TOPICAL (20:23)
[2024-07-30] MEDS: LANTUS 0.07 UNITS SC (21:51)
[2024-07-30 21:59] LABS: Glucose - Point of Care 178 mg/dl (70-99)
[2024-07-30 22:13] LABS: Urine Albumin Negative (Neg - Trace); Urine Bilirubin Negative (Negative); Urine Character Clear (Clear); Urine Color Yellow; Urine Glucose Trace (Negative); Urine Ketone Negative (Negative); Urine Leukocyte Negative (Negative); Urine Nitrite Negative (Negative); Urine Occult Blood Negative (Negative); Urine Urobilinogen Negative (Neg - 1+)
[2024-07-30 22:30] LABS: Urine Sodium < 5 mmol/L (30-90)
[2024-07-31] VITALS (16 sets, daily range): BP systolic 90–139; BP diastolic 47–75; PULSE 2–71; O2SAT 98; BMI 35.9; BMI 36.3
[2024-07-31 05:00] LABS: Hematocrit 26.6 % (39.0-52.0); Mean Corp Hgb Conc. 33.8 g/dL (33.0-37.0); Mean Corpuscular Hgb 30.6 pg (27.0-31.0); Mean Corpuscular Volume 90.5 fL (80.0-94.0); Platelet Count 135 10^3/uL (130-400); Red Blood Cell Count 2.94 10^6/uL (4.70-6.10); Red Cell Dist. Width 15.7 % (11.5-14.5); White Blood Cell Count 8.4 10^3/uL (4.8-10.8)
[2024-07-31 05:13] LABS: Blood Urea Nitrogen 47 mg/dl (9-20); Calcium 8.3 mg/dl (8.4-10.2); Carbon Dioxide 33 mmol/L (22-30); Chloride 99 mmol/L (98-107); Estimated Creatinine Clearance 37 ml/min; Glucose 194 mg/dl (70-99); Potassium 4.3 mmol/L (3.5-5.1); Sodium 139 mmol/L (135-145); eGFR 30.47
--- NOTE | 2024-07-31 05:15 | PTCARENOTE ---
Pt verbally and physically inappropriate with women staff. Pt informed his behavior is unacceptable and will not be tolerated. Pt constantly telling this RN that he is in love with this RN. When applying purewick pt made inappropriate comment
requesting a 'sexual act while you are down there.' Pt's behavior was corrected immediately by informing him behavioral misconduct is unacceptable and unprofessional.
[2024-07-31 05:43] LABS: Cortisol, Random 12.4 ug/dl
[2024-07-31] MEDS: ADVAIR HFA 45/21 MCG INHALER 2 PUFF INH ×2 (08:06→19:49)
[2024-07-31] MEDS: BACTROBAN 2% OINTMENT 1 APPLIC TOPICAL (08:51)
[2024-07-31] MEDS: MIRALAX 17 GRAMS PO (08:51)
[2024-07-31] MEDS: NEURONTIN 300 MG PO ×2 (08:55→22:10)
[2024-07-31] MEDS: LEXAPRO 20 MG PO (08:55)
[2024-07-31] MEDS: DESENEX/MITRAZOL/ZEASORB 1 APPLIC TOPICAL ×2 (08:55→22:10)
[2024-07-31] MEDS: ELIQUIS 5 MG PO ×2 (08:55→22:10)
[2024-07-31] MEDS: PROTONIX 40 MG PO (08:55)
[2024-07-31] MEDS: BUSPAR 10 MG PO ×2 (08:55→22:10)
[2024-07-31] MEDS: LASIX 80 MG PO (08:55)
[2024-07-31] MEDS: NOVOLOG FLEXPEN-LOW RESISTANCE 2 UNITS SC ×2 (09:11→17:57)
[2024-07-31 09:18] LABS: Glucose - Point of Care 206 mg/dl (70-99)
[2024-07-31 10:22] LABS: Glycohemoglobin (HgbA1c) 6.6 % (4.0-5.6)
--- NOTE | 2024-07-31 10:34 | W.PN.HOSP.TC ---
Today's Communication/Plan
-
Cr trending in the right direction. Likely pre-renal. Follow up case management for placement.
Assessment / Plan
Assessment / Plan
1. Proximal Fibular Shaft Fracture
- Pt seen and cleared by ortho
- Pt is OK to bear weight as tolerated; can use crutches or walker as needed
- Pt advised to follow up with ortho outpatient in 4 weeks.
- PT/OT as tolerated
2. History of CHF
- CXR shows no acute cardiopulmonary abnormality and bibasilar atelectasis.
- ProBNP 381
- Pt seen by cards; agree that likely not acute exacerbation of HFpEF
- Continue Home Dose Lasix
- Daily weights/I/Os
3. Stage 3 Chronic Kidney Disease
- Creatinine 2.2 today; improved from 2.5.
- Repeat Cr in AM
4. HTN
- Hold Losartan and Hydralazine due to hypotensive episode.
- Continue Coreg with hold parameters SBP < 110 or HR < 60
5. A-fib
- Continue Coreg and Eliquis
6. Type 2 DM
- Continue Lantus/ Sliding Scale Insulins
- Accucheck AC/HS
7. Misc
- Follow up with social issues; pt [facility] need [facility] as he was living alone, and his apartment lease recently ended.
Anticipated Discharge: 24 - 48 hours
Subjective/Interval History
-
Date of Service: July 31, 2024
No overnight events; resting comfortably.
Objective Data
-
Labs:
Laboratory Results
07/31/24
04:34
WBC 8.4
Hgb 9.0 L
Hct 26.6 L
Plt Count 135
Sodium 139
Potassium 4.3
Chloride 99
Carbon Dioxide 33 H
BUN 47 H
Creatinine 2.2 H
Glucose 194 H
Calcium 8.3 L
Vital Signs:
Vital Signs
Temp Pulse Resp BP Pulse Ox
97.5 F 60 16 114/67 96
07/31/24 07:55 07/31/24 08:10 07/31/24 08:10 07/31/24 08:00 07/31/24 08:10
I&O
07/30/24 07/31/24 08/01/24
06:59 06:59 06:59
Intake Total 250 / 250 2374 / 237
Output Total 300 / 300
Balance 250 / 250 2074
Review of Systems
-
History Source: Patient
All other systems: Reviewed and negative
Physical Exam
-
General: Well Developed and No Apparent Distress
HEENT: Normocephalic and Atraumatic
Respiratory: Clear to Auscultation
Cardiac: Regular Rhythm and S1/S2
GI: Soft and Nontender
Neuro: Awake and Alert
Psych: Calm
Data Reviewed
-
Labs: Labs Reviewed by me
--- NOTE | 2024-07-31 11:48 | W.PN.UPDATE ---
Update Note
Progress Note Update
73 y/o M with PMHx persistent afib on Eliquis, HFpEF, CKD III, restrictive lung disease, EARL, DM II presents post fall resulting in left leg pain. Patient has been feeling weak over past couple of days with increased swelling lower extremities. He
lives alone.
Gen: NAD, Awake and alert, NCAT
Eyes: EOMI, PERRLA, no scleral icterus.
Neck: supple.
CV: RRR, +S1/S2, no m/r/g.
Resp: CTAB anteriorly
Abd: +BS, soft, NT, ND
Skin: No rashes. Trace bilateral lower extremity edema
Neuro: remains CN 2-12 intact, non-focal.
Psych: Normal mood and affect.
Tibia/Fibula Xray: Minimally displaced proximal fibular shaft fracture.
Left Leg pain due to minimally Displaced Proximal Fibular Shaft Fracture:
-Reactive leukocytosis
-case discussed with ortho, OK for weight bearing as tolerated with crutches or walker
-follow up in office in 4 weeks for x-rays (per Dr. Franklin)
-PT/OT
Chronic HFpEF:
-CXR: No acute cardiopulmonary abnormality. Low lung volumes with elevation of the right hemidiaphragm and likely bibasilar atelectasis.
-proBNP 381
-cont home dose Lasix
-no evidence of acute exacerbaction of HFpEF
-daily wts, I/Os
NAOMI on CKD3:
-likely due to hypotension
-holding Losartan
-Cr improving from yesterday
-bladder scans with PRN straight cath
Permanent Atrial Fibrillation:
-cont Coreg/Eliquis
Essential HTN
-patient was hypotensive in beginning of ER say
-holding ORCHESTRATOR Losartan/Coreg
DM2:
-cont Lantus/SSI/accuchecks
Obesity due to excess calories:
-Encourage weight loss
-Affects all aspects of care
FULL/Eliquis
[2024-07-31 13:06] LABS: Glucose - Point of Care 197 mg/dl (70-99)
--- NOTE | 2024-07-31 13:10 | W.PN.NEPH.PH ---
Today's Communication / Plan
-
cotn po lasix
follow labs
Assessment/Plan
-
IMP:
Left Leg pain due to minimally Displaced Proximal Fibular Shaft Fracture
Reactive leukocytosis
chronic HFpEF: recovered EF
NAOMI on CKD3
Permanent Atrial Fibrillation
Essential HTN
IDDM2
Obesity due to excess calories
CAD
s/p PPM
h/o K stone
Plan:
A/w fall, left leg fibular fx
NAOMI-likely prerenal specially with hypotension, cr better at 2.2
bland UA with U na <5, no hydro on CT non obst stone of right kidney
follow bladder scan, PVR 130cc
now BP are better ok to resume lasix as wts are up , start FR 48 ounces/day
I am not finding clear source of hypotension, leucocytosis is better
hb stable, no bleeding on CT, cortisol was ok
may need to repeat echo if hypotension persists
cont to hold ARB, Jardiance and other BP meds
labs in am
d/w pt and primary
-
-
Date of Service: July 31, 2024
CC / HPI / ROS
-
Chief Complaint:
NAOMI
CKD
History of Present Illness:
cr better at 2.2, UOP not measured
BP stable now
no fever
hb stable 9
Review of Systems:
no cp or chr sob no change
no n/v
on O2 2lit
Labs
-
Labs:
WBC 8.4 10^3/uL (4.8-10.8) 07/31/24 04:34
RBC 2.94 10^6/uL (4.70-6.10) L 07/31/24 04:34
Hgb 9.0 g/dL (13.0-18.0) L 07/31/24 04:34
Hct 26.6 % (39.0-52.0) L 07/31/24 04:34
Plt Count 135 10^3/uL (130-400) 07/31/24 04:34
Sodium 139 mmol/L (135-145) 07/31/24 04:34
Potassium 4.3 mmol/L (3.5-5.1) 07/31/24 04:34
Chloride 99 mmol/L (98-107) 07/31/24 04:34
Carbon Dioxide 33 mmol/L (22-30) H 07/31/24 04:34
BUN 47 mg/dl (9-20) H 07/31/24 04:34
Creatinine 2.2 mg/dL (0.7-1.3) H 07/31/24 04:34
eGFR 30.47 07/31/24 04:34
Glucose 194 mg/dl (70-99) H 07/31/24 04:34
Calcium 8.3 mg/dl (8.4-10.2) L 07/31/24 04:34
Uvs-K-Wnibarigydk Pept 381 pg/ml 07/29/24 15:40
Albumin 3.3 g/dl (3.5-5.0) L 07/29/24 20:39
Physical Exam
-
Vital Signs:
Vital Signs
Temp Pulse Resp BP Pulse Ox
97.5 F 60 16 114/67 96
07/31/24 07:55 07/31/24 08:10 07/31/24 08:10 07/31/24 08:00 07/31/24 10:30
Cardiovascular:: Regular rate and rhythm
Respiratory:: Bilateral: CTA (decreased)
Lung Excursion:: Normal
Abdomen:: Nontender and Soft
Extremity Edema:: +2: Bilateral: (TEDs)
Lewis Catheter: No
[2024-07-31] MEDS: NOVOLOG FLEXPEN-LOW RESISTANCE 1 UNITS SC (13:36)
--- NOTE | 2024-07-31 15:15 | W.PN.CD ---
Today's Communication / Plan
-
I am OK with his Lasix is held for a day or two to see if Cr improves
Ultimately I do want him back on his outpatient HF/BP/CAD meds.
Impression / Plan
-
HFimpEF - acute on chronic.
- his weight is up mildly from last admission, d/c 06/05/24 weight 246 lbs and admit weight 07/29/24 251 lbs now down to 249 lbs.
- he states weight at home is 246 lbs on Lasix 80mg daily.
- Continue usual Lasix, but he seems compensated so if needed could hold and watch carefully
- proBNP 381.
- he is on Jardiance as an outpatient.
- daily weight, I/Os, and follow BMP.
- Echo 05/17/2024: LVEF 60-65%, mild cLVH, no significant valve disease, right heart pressure could not be estimated.
- Cath 07/2020: PCWP 23, RA 15, PA 60/30. Mild CAD.
- Cath 05/24/2024: Weight 258 lbs, RA 15, PCWP 25, PA 65/30; no new obstructive CAD. pBNP at that time was 381 and 116 kg
- At discharge I hope he is back on his usual medical regimen
NAOMI - acute on CKD 3. Baseline Cr 1.3-1.7, admit 2.2, peak 2.5
- Losartan, Coreg and Jardiance are held. Still on Lasix
- monitor BMP, 3.
Anemia
- Likely multifactorial
- Orthopedic fracture
- CKD
CAD - stable w/o angina.
- 2 V CAD at cath 05/24/24: 70% in two Diag, 60-70% pRCA,
- continue Lipitor and Eliquis.
Persistent atrial fibrillation - rate controlled.
- A sense, V paced on tele.
- denies palpitations.
- Oral Anticoagulation: Eliquis 5mg BID, continue.
- [id number]: score at least 6 (Heart failure, HTN, age 75 or more, Diabetes Mellitus, Vascular disease).
HTN - stable.
- had hypotension in the ER improved with Midodrine and 250ml IV fluid bolus.
- monitor and resume outpatient meds as able.
Heart block - S/p Medtronic PPM.
- stable with normal function.
Type II DM - per hospitalist.
Fall sustained left fib fracture, minimally displaced
- Fall, mechanical, no syncope
Subjective:
No angina, no dyspnea
Doing
Physical Exam
Vital Signs/Labs
Vital Signs
Temp Pulse Resp BP Pulse Ox
97.5 F 60 16 114/67 96
07/31/24 07:55 07/31/24 08:10 07/31/24 08:10 07/31/24 08:00 07/31/24 10:30
07/30/24 07/31/24 08/01/24
06:59 06:59 06:59
Actual Weight 113.1 kg 113.483 kg 114.7 kg
07/31/24 04:34
07/31/24 04:34
07/29/24
15:40
Pja-Y-Quqbsnbbekx Pept 381
LAB Results
07/29/24
15:40
Troponin I < 0.012
Physical Exam
Constitutional: No acute distress
EENT: Anicteric
Cardiovascular: Rhythm & rate is regular and Pedal edema is absent
Respiratory: Respiratory effort normal and Lungs clear to auscul.
GI: Soft and Distention absent
Neuro/Psych: Alert
Data Reviewed
-
Date of Service: July 31, 2024
[2024-07-31 17:59] LABS: Glucose - Point of Care 218 mg/dl (70-99)
[2024-07-31] MEDS: LIPITOR 10 MG PO (22:10)
[2024-07-31] MEDS: LANTUS 0.07 UNITS SC (22:19)
[2024-07-31] MEDS: TYLENOL 650 MG PO (22:20)
[2024-07-31 22:23] LABS: Glucose - Point of Care 177 mg/dl (70-99)
[2024-08-01] VITALS (16 sets, daily range): BP systolic 112–147; BP diastolic 56–98; PULSE 2–78; O2SAT 95; BMI 36.8
--- NOTE | 2024-08-01 05:49 | PTCARENOTE ---
Pt confrontational when another RN attempted to obtain labs this am. Much appeasing needed to obtain am labs. AM weight up at 256.2. Continues wearing BIPAP 18/6/4L POX 98% at present time. Pt c/o sore throat at beginning of shift medicated with
Tylenol with good relief. 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 LS clear but diminished. Purewick in place draining approx 1L. VSS. Remains 100% VPaced on CM. Only c/o discomfort to left leg with movement. Fiber boots remain on. No change from previous
assessment. Maintained on Q2hr turns. Call jimenez remains within reach. Will continue to monitor.
[2024-08-01 05:53] LABS: Hematocrit 26.8 % (39.0-52.0); Hemoglobin 9.1 g/dL (13.0-18.0); Mean Corpuscular Hgb 30.8 pg (27.0-31.0); Mean Corpuscular Volume 90.8 fL (80.0-94.0); Mean Platelet Volume 12.3 fL (7.4-10.4); Platelet Count 123 10^3/uL (130-400); Red Blood Cell Count 2.95 10^6/uL (4.70-6.10); Red Cell Dist. Width 15.6 % (11.5-14.5); White Blood Cell Count 7.5 10^3/uL (4.8-10.8)
[2024-08-01 06:11] LABS: Blood Urea Nitrogen 40 mg/dl (9-20); Calcium 8.5 mg/dl (8.4-10.2); Carbon Dioxide 33 mmol/L (22-30); Chloride 101 mmol/L (98-107); Estimated Creatinine Clearance 48 ml/min; Glucose 118 mg/dl (70-99); Potassium 4.3 mmol/L (3.5-5.1); Sodium 138 mmol/L (135-145); eGFR 41.52
[2024-08-01] MEDS: ADVAIR HFA 45/21 MCG INHALER 2 PUFF INH ×2 (08:21→19:39)
[2024-08-01] MEDS: DESENEX/MITRAZOL/ZEASORB 1 APPLIC TOPICAL ×2 (09:19→19:19)
[2024-08-01] MEDS: ELIQUIS 5 MG PO ×2 (09:19→19:18)
[2024-08-01] MEDS: BACTROBAN 2% OINTMENT 1 APPLIC TOPICAL (09:19)
[2024-08-01] MEDS: BUSPAR 10 MG PO ×2 (09:19→19:18)
[2024-08-01] MEDS: LEXAPRO 20 MG PO (09:19)
[2024-08-01] MEDS: LASIX 80 MG PO (09:19)
[2024-08-01] MEDS: NEURONTIN 300 MG PO ×2 (09:20→19:18)
[2024-08-01] MEDS: PROTONIX 40 MG PO (09:20)
[2024-08-01] MEDS: MIRALAX PO (09:20)
[2024-08-01] MEDS: NOVOLOG FLEXPEN-LOW RESISTANCE SC ×2 (09:25→18:32)
[2024-08-01 09:36] LABS: Glucose - Point of Care 142 mg/dl (70-99)
[2024-08-01 11:56] LABS: Glucose - Point of Care 264 mg/dl (70-99)
--- NOTE | 2024-08-01 12:00 | W.PN.NEPH.PH ---
Today's Communication / Plan
-
extra lasix if repeat wt is up
Assessment/Plan
-
IMP:
Left Leg pain due to minimally Displaced Proximal Fibular Shaft Fracture
Reactive leukocytosis
chronic HFpEF: recovered EF
NAOMI on CKD3-mid 1 range
Permanent Atrial Fibrillation
Essential HTN
IDDM2
Obesity due to excess calories
CAD
s/p PPM
h/o K stone
Plan:
A/w fall, left leg fibular fx
NAOMI-likely prerenal specially with hypotension, cr better at 1.7 close to baseline
bland UA with U na <5, no hydro on CT non obst stone of right kidney
follow bladder scan, PVR 130cc
BP stable, back on BB, ok to resume hydralazine, ARB if needed
cont lasix, may dose extra for after recheck wt since increasing trend. FR 48 ounces/day
hb stable, no bleeding on CT, cortisol was ok
ok to resume Jardiance
labs in am
d/w pt and nursing
-
-
Date of Service: August 01, 2024
CC / HPI / ROS
-
Chief Complaint:
NAOMI
CKD
History of Present Illness:
cr better at 1.7, UOP non oliguric
BP stable now
no fever
hb stable 9
Review of Systems:
no cp or c/o chr sob no change
no n/v
on O2 2lit
Labs
-
Labs:
WBC 7.5 10^3/uL (4.8-10.8) 08/01/24 05:31
RBC 2.95 10^6/uL (4.70-6.10) L 08/01/24 05:31
Hgb 9.1 g/dL (13.0-18.0) L 08/01/24 05:31
Hct 26.8 % (39.0-52.0) L 08/01/24 05:31
Plt Count 123 10^3/uL (130-400) L 08/01/24 05:31
Sodium 138 mmol/L (135-145) 08/01/24 05:31
Potassium 4.3 mmol/L (3.5-5.1) 08/01/24 05:31
Chloride 101 mmol/L (98-107) 08/01/24 05:31
Carbon Dioxide 33 mmol/L (22-30) H 08/01/24 05:31
BUN 40 mg/dl (9-20) H 08/01/24 05:31
Creatinine 1.7 mg/dL (0.7-1.3) H 08/01/24 05:31
eGFR 41.52 08/01/24 05:31
Glucose 118 mg/dl (70-99) H 08/01/24 05:31
Calcium 8.5 mg/dl (8.4-10.2) 08/01/24 05:31
Fbi-S-Tcftnwbczwd Pept 381 pg/ml 07/29/24 15:40
Albumin 3.3 g/dl (3.5-5.0) L 07/29/24 20:39
Physical Exam
-
Vital Signs:
Vital Signs
Temp Pulse Resp BP Pulse Ox
98.0 F 66 16 143/64 93
08/01/24 07:45 08/01/24 08:28 08/01/24 08:28 08/01/24 06:00 08/01/24 08:28
Cardiovascular:: Regular rate and rhythm
Respiratory:: Bilateral: CTA (decreased)
Lung Excursion:: Normal
Abdomen:: Nontender and Soft
Extremity Edema:: None: Bilateral: (trace)
Lewis Catheter: No
--- NOTE | 2024-08-01 12:25 | W.PN.UPDATE ---
Update Note
Progress Note Update
73 y/o M with PMHx persistent afib on Eliquis, HFpEF, CKD III, restrictive lung disease, EARL, DM II presents post fall resulting in left leg pain. Patient has been feeling weak over past couple of days with increased swelling lower extremities. He
lives alone.
c/o SOB and LLE pain due to fx.
Gen: NAD, Awake and alert, NCAT
Eyes: EOMI, PERRLA, no scleral icterus.
Neck: supple.
CV: remains RRR, +S1/S2, no m/r/g.
Resp: remains CTAB anteriorly
Abd: +BS, soft, NT, ND
Skin: No rashes.
Neuro: remains CN 2-12 intact, non-focal.
Psych: Normal mood and affect.
Tibia/Fibula Xray: Minimally displaced proximal fibular shaft fracture.
Acute hypoxemic respiratory failiure:
-pt currently on 5L NC O2
-etiology unclear
-c/s pulm
-check CT chest
NAOMI on CKD3:
-likely due to hypotension
-holding Losartan
-Cr continues to improve
-bladder scans with PRN straight cath
Left Leg pain due to minimally Displaced Proximal Fibular Shaft Fracture:
-Reactive leukocytosis
-case discussed with ortho, OK for weight bearing as tolerated with crutches or walker
-follow up in office in 4 weeks for x-rays (per Dr. Franklin)
-PT/OT
Chronic HFpEF:
-CXR: No acute cardiopulmonary abnormality. Low lung volumes with elevation of the right hemidiaphragm and likely bibasilar atelectasis.
-proBNP 381
-cont home dose Lasix
-no evidence of acute exacerbation of HFpEF
-daily wts (wt up 2Kg since admission), I/Os
Permanent Atrial Fibrillation:
-cont Coreg/Eliquis
Essential HTN
-patient was hypotensive in beginning of ER say, BPs have improved
-holding SUPPORT CLERK Losartan/Coreg
DM2:
-cont Lantus/SSI/accuchecks
Obesity due to excess calories:
-Encourage weight loss
-Affects all aspects of care
FULL/Eliquis
Total time spent on today's encounter was 50 minutes which included time spent in counseling the patient/family regarding diagnosis and treatment plan as listed above, goals of care, and symptom management. Case was discussed with nursing staff,
specialists, and care coordinators/case management. All labs and imaging personally reviewed by me. Remainder the time spent in detailed review of previous records, lab data, imaging, and other medical provider documentation.
[2024-08-01] MEDS: NOVOLOG FLEXPEN-LOW RESISTANCE 3 UNITS SC (13:33)
--- NOTE | 2024-08-01 13:40 | CON.PUL ---
Consultation
Consultation Request
Date/Time Consultation Requested: 08/01/2024 - 1242
Date/Time Consultation Performed: 08/01/2024 - 0
Requesting Provider: Dr. Betts
Performing Provider: Dr. Rivas
Reason for Consultation: Hypoxia/SOB
Medical History
-
Chief Complaint: Fell with left lower extremity pain
History of Present Illness:
73-year-old male non-smoker with a past medical history of COPD/asthma, EARL/OHS on nocturnal BiPAP, history of pneumonia, DM type II, CHB s/p PPM, A-fib on Eliquis, depression/anxiety, CKD, right adrenal mass, history of recurrent falls and chronic
HFpEF who presents with a trip and fall that happened at home prior to arrival. He had initially refused EMS but then he developed pain in his left lower extremity. When EMS arrived his pressure was low in the 80s/50s. When he was here in the
hospital he said that his left leg and his tailbone hurt and he cannot put any weight on his left leg. He had no chest pain however he did endorse chronic lower extremity edema with shortness of breath. In the ER he was afebrile to 98.1 �F, pulse
rate 76, breathing at 18 breaths/min, BP 93/46 and saturating 95% on room air. Initial labs showed leukocytosis to 14.2, anemia 11.2, creatinine 2.2, serum bicarbonate level 32, troponin negative at <0.012, proBNP 381, and glucose 202. Imaging
with left tibia/fibula XR showed a minimally displaced proximal fibular shaft fracture. CXR showed no acute cardiopulmonary abnormality with low lung volumes and elevated right hemidiaphragm. He was admitted to the hospitalist service and
orthopedics recommended to be weightbearing as tolerated with crutches or walker with no urgent need for surgical intervention. He developed an NAOMI and nephrology was consulted. He has required between room air and 2 L/min for majority of his
hospitalization, however on the morning of 08/01, he required 5 L/min. Pulmonary service now consulted for additional management/recommendations.
Of note, patient follows with me in the [facility] office with last visit on 01/08/2024. At that time he was seeing me after having a multifocal pneumonia seen on CT chest from November 2023. PFTs were ordered for next visit that was scheduled for 3
months later however he was unable to make that appointment. He was advised to continue with BiPAP at night on 15/5 cmH2O, and to continue his Wixela 100mcg.
When I saw the patient today he was resting in bed in no acute distress on 5 L/min saturating 97%. Heart rate 74 and BP 122/58. He is breathing comfortably, has an intermittent cough but it is not bothersome. He denies chest pain, MALDONADO, abdominal
pain, nausea, fevers or chills. He is getting wound care to his right lower extremity. He tell me that when he first came in that he slipped on something on the floor onto the bed and did not lose consciousness prior to falling, and had no
preceding chest pain or shortness of breath.
PMHx: COPD/asthma, EARL/obesity hypoventilation syndrome on nocturnal BiPAP, history of pneumonia, DM type II, complete heart block s/p PPM, A-fib on Eliquis, CKD, depression/anxiety, obesity, history of retroperitoneal hematoma with hemorrhagic
shock (June 2023), right adrenal mass, history of multiple falls, hypertension/hyperlipidemia, chronic HFpEF, moderate-severity PH (mPAP: 42mmHg with PVR: 2.7 LOO via RHC in May 2024)
PSHx: Spinal stimulator, laminectomy, hip fracture repair, tonsillectomy
Past Medical History
Past Medical History: Other (Above as per HPI)
Past Surgical History: Other (Above as per HPI)
Social History
Tobacco: Non-smoker
Alcohol: None
Drug: None
Personal: Single
Living: Alone
Employment: Retired
Family History
Family History: Other (Mother with coronary disease, father with hypertension, both . Negative for lung disease. No children. 1 sister healthy))
Allergies / Home Medications
Allergies
Allergy/AdvReac Type Severity Reaction Status Date / Time
No Known Allergies Allergy Verified 05/16/24 18:50
Home Medications
�Medication �Instructions �Recorded �Confirmed �Last Taken �Type
atorvastatin 10 mg tablet (Lipitor) 10 mg PO HS High cholesterol 09/04/22 07/29/24 04/08/24 22:00 History
escitalopram oxalate 20 mg tablet 20 mg PO DAILY Depression 09/04/22 07/29/24 04/09/24 08:00 History
(Lexapro)
fluticasone 100 mcg-salmeterol 50 1 inh inhalation R BID 09/05/22 07/29/24 01/21/24 History
mcg/dose blistr powdr for Lung/breathing issues
inhalation (Wixela Inhub)
apixaban 5 mg tablet (Eliquis) 5 mg PO BID Blood thinner #30 tabs 05/06/23 07/29/24 04/09/24 08:00 Rx
gabapentin 300 mg capsule 300 mg PO BID Pain 06/12/23 07/29/24 04/09/24 08:00 History
buspirone 10 mg tablet 10 mg PO BID Mental Health/Anxiety 11/27/23 07/29/24 04/09/24 08:00 History
pantoprazole 40 mg tablet,delayed 40 mg PO DAILY Gastrointestinal 11/27/23 07/29/24 04/09/24 08:00 History
release (Protonix) Issue
carvedilol 12.5 mg tablet 12.5 mg PO BID Blood pressure #10 01/30/24 07/29/24 04/09/24 08:00 Rx
tabs
hydralazine 50 mg tablet 50 mg PO TID Blood Pressure 04/09/24 07/29/24 04/09/24 14:00 History
insulin glargine 100 unit/mL (3 15 unit SC HS Diabetes 04/09/24 07/29/24 Unknown History
mL) subcutaneous pen (Lantus
Solostar U-100 Insulin)
insulin lispro 100 unit/mL 0 sliding scale dose SC AC Diabetes 04/09/24 07/29/24 Unknown History
subcutaneous solution
losartan 100 mg tablet 100 mg PO DAILY Blood Pressure 04/09/24 07/29/24 04/09/24 08:00 History
polyvinyl alcohol-povidone (PF) 1 drops BOTH EYES QIDPRN PRN dry 04/09/24 07/29/24 Unknown History
1.4 %-0.6 % eye drops in a eyes
dropperette (Refresh Classic (PF))
empagliflozin 10 mg tablet 10 mg PO DAILY #0 tabs 06/03/24 07/29/24 Unknown Rx
(Jardiance)
furosemide 80 mg tablet 80 mg PO DAILY #0 tabs 06/03/24 07/29/24 Unknown Rx
polyethylene glycol 3350 17 gram 17 g PO DAILY #0 ea 06/03/24 07/29/24 Unknown Rx
oral powder packet (HealthyLax)
Review of Systems
-
History Source: Patient
All other systems: Negative unless noted
Vitals / Labs / Diagnostic Testing
Vital Signs
Temp Pulse Resp BP Pulse Ox
98.5 F 70 14 139/69 97
08/01/24 11:45 08/01/24 14:39 08/01/24 14:39 08/01/24 14:39 08/01/24 14:39
Lab Data
08/01/24 05:31
08/01/24 05:31
Diagnostic Testing:
Physical Exam
-
HEENT: Normocephalic, Anicteric and Moist Mucous Membranes
Cardiovascular: Peripheral Edema (negative) and Other (Normal rate; V paced)
Respiratory: Clear, Wheeze (negative), Rales (negative), Rhonchi (negative) and Non-Labored Respirations
GI: Soft, Distended (Abdominal obesity), Non Tender and Normal Bowel Sounds
Neurology: AO x 3 and Tremors (negative)
Skin: Warm, Dry and Other (Wound on the anterior right lower extremity)
General: Respiratory Distress (negative), Comfortable, Fever (negative) and Chills (negative)
Assessment
-
Assessment: 73-year-old male non-smoker with a past medical history of COPD/asthma, EARL/OHS on nocturnal BiPAP, history of pneumonia, DM type II, CHB s/p PPM, A-fib on Eliquis, depression/anxiety, CKD, right adrenal mass, history of recurrent falls
and chronic HFpEF who presents with a trip and fall that happened at home prior to arrival. He had initially refused EMS but then he developed pain in his left lower extremity. When EMS arrived his pressure was low in the 80s/50s. When he was
here in the hospital he said that his left leg and his tailbone hurt and he cannot put any weight on his left leg. He had no chest pain however he did endorse chronic lower extremity edema with shortness of breath. In the ER he was afebrile to
98.1 �F, pulse rate 76, breathing at 18 breaths/min, BP 93/46 and saturating 95% on room air. Initial labs showed leukocytosis to 14.2, anemia 11.2, creatinine 2.2, serum bicarbonate level 32, troponin negative at <0.012, proBNP 381, and glucose
202. Imaging with left tibia/fibula XR showed a minimally displaced proximal fibular shaft fracture. CXR showed no acute cardiopulmonary abnormality with low lung volumes and elevated right hemidiaphragm. He was admitted to the hospitalist
service and orthopedics recommended to be weightbearing as tolerated with crutches or walker with no urgent need for surgical intervention. He developed an NAOMI and nephrology was consulted. He has required between room air and 2 L/min for majority
of his hospitalization, however on the morning of 08/01, he required 5 L/min. Pulmonary service now consulted for additional management/recommendations.
Chronic conditions MANAGER TRANSFUSION: COPD/asthma, EARL/obesity hypoventilation syndrome on nocturnal BiPAP, history of pneumonia, DM type II, complete heart block s/p PPM, A-fib on Eliquis, CKD, depression/anxiety, obesity, history of retroperitoneal hematoma
with hemorrhagic shock (June 2023), right adrenal mass, history of multiple falls, hypertension/hyperlipidemia, chronic HFpEF, moderate-severity PH (mPAP: 42mmHg with PVR: 2.7 LOO via RHC in May 2024)
Impression:
#Acute respiratory failure with hypoxia on supplemental oxygen -most likely due to hypoventilation as CXR on 07/29/2024 showed low lung volumes with elevated right hemidiaphragm and bibasilar atelectasis
#Fall with left minimally displaced proximal fibular shaft fracture
#Anemia (baseline Hb 10�11.5g/dL)
#Thrombocytopenia
#NAOMI on CKD (baseline Cr approximately 1.6) - improving
#DM type II c/b hyperglycemia
#Chronic right lower lobe subsegmental atelectasis (seen on prior CT chest from 05/22/2024, as well as CT chest from 11/2023)
#Chronic HFpEF with mild concentric LVH
#Multivessel CAD involving proximal LAD, ostia of both diagonals, and proximal�mid RCA with history of severe pulmonary hypertension and chronic HFpEF
#A-fib on Eliquis
#History of hypertension
Plan:
- Seems he has required between room air and 2 L/min nasal cannula since admission, however today he required up to 5L/min with no preceding inciting event
- CT chest is pending ---> follow up results
- It does not appear that he has acute pulmonary edema as a cause of concern for his hypoxia, and he sounds clear on exam
- He is already on Eliquis so doubtful that he is experiencing an acute PE, however in the setting of a fibular shaft fracture he is at increased risk of a fat embolism; consider CTA chest instead of non-con CT chest
- Continue supplemental O2 and titrate down to maintain SpO2 88-95%
- Incentive spirometer encouraged
- Continue Advair 45mcg with prn Duonebs
- Diuresis with his home dose of lasix 80mg PO daily
- Cardiology on board and recommendations appreciated
- Continue with nocturnal BiPAP and prn during the day during naps
- Adjust O2 flow rate bled into machine to keep sats as above
- Check morning VBG to ensure that pCO2 + pH are stable
- PT/OT
- Pain control
- Replete electrolytes with K>4, Mg>2
- Maintain euglycemia with goal BG >100 and <180
- prn nebulized bronchodilators
- DVT ppx: Eliquis
Pulmonary service will continue to follow along. He is encouraged to continue following up with us in the office as last visit was with Dr. Rivas in January 2024.
Data:
Tibia/fibula left XR 07/29/2024: Minimally displaced proximal fibular shaft fracture.
Total time spent today was 58 minutes for this encounter. Time includes reviewing laboratory test/imaging results, reviewing pertinent medical records, obtaining and reviewing medical history, performing an appropriate exam, ordering medications,
tests and procedures. Time also includes documentation of this encounter, coordinating patient care and communicating with other healthcare professionals. Total time does not include separately billed tests performed on this date of service.
--- NOTE | 2024-08-01 13:49 | W.PN.CD ---
Today's Communication / Plan
-
His weight is up to where 2 months ago we found PCWP of 25
May need to increase diuretic
Follow BMP
Add meds back, likely tomorrow
Impression / Plan
-
HFimpEF - acute on chronic.
- his weight is up mildly from last admission, d/c 06/05/24 weight 111.8 kg lb now 116.2 kg
- he states weight at home is 246 lbs on Lasix 80mg daily.
- Continue usual Lasix. May need more Lasix given weight gain, monitor for now
- proBNP 381.
- he is on Jardiance as an outpatient.
- daily weight, I/Os, and follow BMP.
- Echo 05/17/2024: LVEF 60-65%, mild cLVH, no significant valve disease, right heart pressure could not be estimated.
- Cath 07/2020: PCWP 23, RA 15, PA 60/30. Mild CAD.
- Cath 05/24/2024: Weight 258 lbs, RA 15, PCWP 25, PA 65/30; no new obstructive CAD. pBNP at that time was 381 and 116 kg
- At discharge I hope he is back on his usual medical regimen
NAOMI - acute on CKD 3. Baseline Cr 1.3-1.7, admit 2.2, peak 2.5
- Losartan, Coreg and Jardiance are held. Still on Lasix
- monitor BMP, 3.
Anemia
- Likely multifactorial
- Orthopedic fracture
- CKD
CAD - stable w/o angina.
- 2 V CAD at cath 05/24/24: 70% in two Diag, 60-70% pRCA,
- continue Lipitor and Eliquis.
Persistent atrial fibrillation - rate controlled.
- A sense, V paced on tele.
- denies palpitations.
- Oral Anticoagulation: Eliquis 5mg BID, continue.
- [id number]: score at least 6 (Heart failure, HTN, age 75 or more, Diabetes Mellitus, Vascular disease).
HTN - stable.
- had hypotension in the ER improved with Midodrine and 250ml IV fluid bolus.
- monitor and resume outpatient meds as able.
Heart block - S/p Medtronic PPM.
- stable with normal function.
Type II DM - per hospitalist.
Fall sustained left fib fracture, minimally displaced
- Fall, mechanical, no syncope
Subjective:
No angina, no dyspnea
Doing
Physical Exam
Vital Signs/Labs
Vital Signs
Temp Pulse Resp BP Pulse Ox
98.0 F 66 16 143/64 93
08/01/24 07:45 08/01/24 08:28 08/01/24 08:28 08/01/24 06:00 08/01/24 08:28
07/31/24 08/01/24 08/02/24
06:59 06:59 06:59
Actual Weight 113.483 kg 116.2 kg
08/01/24 05:31
08/01/24 05:31
07/29/24
15:40
[id number] Pept 381
LAB Results
07/29/24
15:40
Troponin I < 0.012
Physical Exam
Constitutional: No acute distress
EENT: Anicteric
Cardiovascular: Pedal edema is absent
Respiratory: Respiratory effort normal and Lungs clear to auscul.
GI: Soft and Distention absent
Neuro/Psych: Alert
Data Reviewed
-
Date of Service: August 01, 2024
--- NOTE | 2024-08-01 14:10 | PTCARENOTE ---
pt yelling at staff stating that 'no one has been in room all day'. However, different staff has been in and out of pt room all day for various tasks. Pt continues to make inappropriate comments to RN despite being told numerous times that it is
unacceptable. Pt is able to make needs known. Call jimenez is within reach and has been within reach throughout shift.
--- NOTE | 2024-08-01 15:08 | PTCARENOTE ---
this RN explained that certain behaviors while hospitalized are not considered appropriate. Pt became aggravated w/ RN for using the word 'appropriate'. Pt now understanding that it isn't acceptable to 'joke around' regarding symptoms of conditions,
followed by speaking with staff in a degrading manner as these are both things that impede the ability to provide adequate and quality care. Pt admits understanding. Call jimenez within reach.
[2024-08-01] MEDS: NOVOLOG FLEXPEN 2 UNITS SC (18:32)
[2024-08-01 18:42] LABS: Glucose - Point of Care 146 mg/dl (70-99)
[2024-08-01 21:43] LABS: Glucose - Point of Care 152 mg/dl (70-99)
[2024-08-01] MEDS: LIPITOR 10 MG PO (21:50)
[2024-08-01] MEDS: LASIX 40 MG IV (21:50)
[2024-08-01] MEDS: LANTUS 0.1 UNITS SC (21:56)
--- NOTE | 2024-08-01 22:43 | PTCARENOTE ---
Pt resting comfortably in bed, repositioning provided per protocol to prevent skin breakdown. Pt continues with pain in LLE with movement, but denies constant pain. Able to swallow pills whole without complication. Continues to request water and
rebecca bob despite fluid restriction. Pt educated on importance of maintaining FR. OTD IV lasix given per ordering provider. Call jimenez within reach. Pt able to ring as needed.
[2024-08-02] VITALS (11 sets, daily range): BP systolic 111–169; BP diastolic 58–84; PULSE 2–72; O2SAT 92–93; BMI 35.6
[2024-08-02 05:37] LABS: Venous Blood Gas B.E. 12.5 mmol/L (-4 to +4); Venous Blood Gas HCO3 38.2 mmol/L (22-27); Venous Blood Gas O2 Sat % 98.4 %; Venous Blood Gas pCO2 55 mmHg (35-48); Venous Blood Gas pH 7.45 (7.32-7.43); Venous Blood Gas pO2 116 mmHg (30-50)
[2024-08-02 05:56] LABS: Hematocrit 26.6 % (39.0-52.0); Hemoglobin 9.1 g/dL (13.0-18.0); Mean Corp Hgb Conc. 34.2 g/dL (33.0-37.0); Mean Corpuscular Hgb 30.7 pg (27.0-31.0); Mean Corpuscular Volume 89.9 fL (80.0-94.0); Mean Platelet Volume 13.4 fL (7.4-10.4); Platelet Count 150 10^3/uL (130-400); Red Blood Cell Count 2.96 10^6/uL (4.70-6.10); Red Cell Dist. Width 15.3 % (11.5-14.5); White Blood Cell Count 7.9 10^3/uL (4.8-10.8)
[2024-08-02 06:17] LABS: Blood Urea Nitrogen 41 mg/dl (9-20); Calcium 8.4 mg/dl (8.4-10.2); Carbon Dioxide 35 mmol/L (22-30); Chloride 97 mmol/L (98-107); Estimated Creatinine Clearance 47 ml/min; Glucose 153 mg/dl (70-99); Magnesium 1.5 mg/dl (1.6-2.3); Phosphorus 2.8 mg/dl (2.5-4.5); Potassium 4.1 mmol/L (3.5-5.1); Sodium 141 mmol/L (135-145); eGFR 41.52
[2024-08-02] MEDS: ADVAIR HFA 45/21 MCG INHALER 2 PUFF INH ×2 (07:22→19:10)
--- NOTE | 2024-08-02 08:06 | W.PN.HOSP.TC ---
Addendum entered and electronically signed by Ralph Bagley DO, Resident 08/02/24 15:51:
Pt diagnosis is persistent atrial fibrillation.
Original Note:
Today's Communication/Plan
-
See PN.
Assessment / Plan
Assessment / Plan
1. Proximal Fibular Shaft Fracture
- Pt seen and cleared by ortho
- Pt is OK to bear weight as tolerated; can use crutches or walker as needed
- Pt able to tolerate PT
- Pt advised to follow up with ortho outpatient in 4 weeks.
2. History of CHF
- CXR shows no acute cardiopulmonary abnormality and bibasilar atelectasis.
- ProBNP 381
- Pt seen by cards; noted pt gaining weight.
- May need more Lasix given weight, monitor for now.
- Daliy weights/Naga
- Monitor CMP; replete K to 4, Mg to 2, per pulm reccs. Mg 1.8 today, 500mg Mg given.
3. Stage 3 Chronic Kidney Disease
- Creatinine 1.7 today; improved from 2.5.
- Repeat Cr in AM
4. HTN
- 127/66, stable today.
- Per card reccs, consider restarting home meds.
5. A-fib
- Continue Eleiquis, Coreg held.
6. Type 2 DM
- Continue Lantus/ Sliding Scale Insulins
- Accucheck AC/HS
7. Misc
- Follow up with social issues; pt may need to be d/c to fdc care facility as he was living alone, and his apartment lease recently ended.
Anticipated Discharge: 24 - 48 hours
Subjective/Interval History
-
Date of Service: August 02, 2024
Pt still states he feels as if he is not getting enough air, though resting comfortably and not in respiratory distress. Denies CP, cough.
Pt continues to feel pain in left lower extremity secondary to injury. Notes he has been doing PT without issue, but otherwise finds it hard to get out of bed due to inability to bear weight.
Objective Data
-
Labs:
Laboratory Results
08/02/24
05:31
WBC 7.9
Hgb 9.1 L
Hct 26.6 L
Plt Count 150 D
Sodium 141
Potassium 4.1
Chloride 97 L
Carbon Dioxide 35 H
BUN 41 H
Creatinine 1.7 H
Glucose 153 H
Calcium 8.4
Vital Signs:
Vital Signs
Temp Pulse Resp BP Pulse Ox
98.7 F 67 20 127/66 94
08/02/24 03:05 08/02/24 07:26 08/02/24 07:26 08/02/24 06:00 08/02/24 07:26
I&O
08/01/24 08/02/24 08/03/24
06:59 06:59 06:59
Intake Total 400 / 400 1200 / 1200
Output Total 1800 / 1800 2000 / 2000
Balance -1400 / -1400 -800 / -800
Review of Systems
-
History Source: Patient
Constitutional: Reports No Symptoms
Respiratory: Reports Trouble Breathing
Cardiac: Reports No Symptoms
Abdomen/GI: Reports No Symptoms
Musculoskeletal: Reports Joint Pain
Neuro: Reports No Symptoms
Physical Exam
-
General: No Apparent Distress, Conversant (speaks in full sentences. ) and Obese
HEENT: Normocephalic and Atraumatic
Respiratory: Clear to Auscultation
Cardiac: Regular Rhythm and S1/S2
GI: Soft and Nontender
Musculoskeletal: Other (some bruising, tender to palpation left ankle )
Skin: Warm
Neuro: Awake and Alert
Psych: Calm
Data Reviewed
-
Labs: Labs Reviewed by me and Discussed with Patient
--- NOTE | 2024-08-02 08:10 | W.PN.UPDATE ---
Update Note
Progress Note Update
I saw and evaluated the patient. I reviewed the resident�s note and agree with findings and plan as documented in the resident�s note.
continues to c/o SOB and LLE pain due to fx.
Gen: NAD, Awake and alert, NCAT
Eyes: EOMI, PERRLA, no scleral icterus.
Neck: supple.
CV: continues to remain RRR, +S1/S2, no m/r/g.
Resp: faint expiratory wheezes anterior R chest
Abd: +BS, soft, NT, ND
Skin: No rashes.
Neuro: continues to remain CN 2-12 intact, non-focal.
Psych: Normal mood and affect.
Tibia/Fibula Xray: Minimally displaced proximal fibular shaft fracture.
Acute hypoxemic respiratory insufficiency:
-clarification/correction from yesterday's note. After yesterday's note was placed it was discovered that the 5L O2 was running to the BIPAP machine and not the pt's nasal cannula tubing
-Appreciate pulmonary. Patient's acute hypoxemic respiratory failure is likely due to hypoventilation, ERAL/OHS, low lung volumes with elevated hemidiaphragm and bibasilar atelectasis.
-check CT chest. Cannot use IV contrast at this time with current Cr.
NAOMI on CKD3:
-likely due to hypotension
-holding Losartan
-Cr had improved to 1.7
-bladder scans with PRN straight cath
Left Leg pain due to minimally Displaced Proximal Fibular Shaft Fracture:
-Reactive leukocytosis
-case discussed with ortho on admission, OK for weight bearing as tolerated with crutches or walker
-follow up in office in 4 weeks for x-rays (per Dr. Franklin)
-PT/OT
Chronic HFpEF:
-CXR: No acute cardiopulmonary abnormality. Low lung volumes with elevation of the right hemidiaphragm and likely bibasilar atelectasis.
-proBNP 381
-cont home dose Lasix
-no evidence of acute exacerbation of HFpEF
-daily wts, I/Os
Permanent Atrial Fibrillation:
-cont Eliquis
Essential HTN
-patient was hypotensive in beginning of ER say, BPs have improved
-holding FUSE COILER Losartan/Coreg
DM2:
-cont Lantus/SSI/accuchecks
Obesity due to excess calories:
-Encourage weight loss
-Affects all aspects of care
FULL/Eliquis
--- NOTE | 2024-08-02 08:18 | PTCARENOTE ---
Pt AAOx3, on 4l O2 at 95%. vpaced +2 BLE edema. incont with a purewick in place. Pt needs encouragement with fluid restriction.
[2024-08-02] MEDS: BUSPAR 10 MG PO ×2 (08:29→20:40)
[2024-08-02] MEDS: LEXAPRO 20 MG PO (08:29)
[2024-08-02] MEDS: LASIX 80 MG PO (08:30)
[2024-08-02] MEDS: ELIQUIS 5 MG PO ×2 (08:30→20:39)
[2024-08-02] MEDS: NEURONTIN 300 MG PO ×2 (08:30→20:39)
[2024-08-02] MEDS: MIRALAX 17 GRAMS PO (08:31)
[2024-08-02] MEDS: PROTONIX 40 MG PO (08:31)
[2024-08-02] MEDS: MAGNESIUM OXIDE 500 MG PO (08:31)
[2024-08-02] MEDS: NOVOLOG FLEXPEN-LOW RESISTANCE 2 UNITS SC ×2 (08:36→13:15)
[2024-08-02] MEDS: NOVOLOG FLEXPEN 2 UNITS SC ×3 (08:36→17:05)
--- NOTE | 2024-08-02 08:44 | VNURNOTE ---
Chart reviewed. Patient is current with [facility] nursing, PT, OT. Will continue to follow hospital course and DC plans.
[2024-08-02 08:51] LABS: Glucose - Point of Care 233 mg/dl (70-99)
--- NOTE | 2024-08-02 09:25 | W.PN.PUL3 ---
Today's Communication / Plan
-
Remains on 4L NC, wean as tolerated
Needs OOB but limited due to fractures, can add IS
Further management per ortho, OK for weight bearing as tolerated with crutches or walker
PT/OT, evals
Will likely need rehab placement
Assessment
-
73-year-old male non-smoker with a past medical history of COPD/asthma, EARL/OHS on nocturnal BiPAP, history of pneumonia, DM type II, CHB s/p PPM, A-fib on Eliquis, depression/anxiety, CKD, right adrenal mass, history of recurrent falls and chronic
HFpEF who presents with a trip and fall that happened at home prior to arrival. When EMS arrived his pressure was low in the 80s/50s. In the ER he was afebrile to 98.1 �F, pulse rate 76, breathing at 18 breaths/min, BP 93/46 and saturating 95% on
room air. Initial labs showed leukocytosis to 14.2, anemia 11.2, creatinine 2.2, serum bicarbonate level 32, troponin negative at <0.012, proBNP 381, and glucose 202. Imaging with left tibia/fibula XR showed a minimally displaced proximal fibular
shaft fracture. CXR showed no acute cardiopulmonary abnormality with low lung volumes and elevated right hemidiaphragm. He was admitted to the hospitalist service and orthopedics recommended no urgent need for surgical intervention. He developed
an NAOMI and nephrology was consulted. He has required between room air and 2 L/min for majority of his hospitalization, however on the morning of 08/01, he required 5 L/min. Pulmonary service now consulted for additional management/recommendations.
Impression:
#Acute respiratory failure with hypoxia on supplemental oxygen -most likely due to hypoventilation as CXR on 07/29/2024 showed low lung volumes with elevated right hemidiaphragm and bibasilar atelectasis
#Fall with left minimally displaced proximal fibular shaft fracture
#Anemia (baseline Hb 10�11.5g/dL)
#Thrombocytopenia
#NAOMI on CKD (baseline Cr approximately 1.6) - improving
#DM type II c/b hyperglycemia
#Chronic right lower lobe subsegmental atelectasis (seen on prior CT chest from 05/22/2024, as well as CT chest from 11/2023)
Chronic conditions [employer] MA[employer]GER:
COPD/asthma
Chronic allergic conjunctivitis
EARL on BiPAP
CKD
Depression/Anxiety disorder
History of retroperitoneal hematoma c/b hemorrhagic shock (06/2023)
Right adrenal mass stable compared to June 2023
Recurrent falls/ambulatory dysfunction
Chronic A-fib on Eliquis
Hypertension/hyperlipidemia
DM type II
CAD s/p recent stent to RCA
Third-degree heart block s/p PPM
Chronic constipation
Cholelithiasis
Spinal stimulator, history of laminectomy
Right adrenal mass
Chronic HFpEF with mild concentric LVH
Moderate-severity PH (mPAP: 42mmHg with PVR: 2.7 LOO via RHC in May 2024)
Plan:
Seems he has required between room air and 2 L/min nasal cannula since admission, however today he required up to 5L/min with no preceding inciting event
Currently on 94% on 4L NC
Continue supplemental O2 and titrate down to maintain SpO2 88-95%
Incentive spirometer encouraged
Continue Advair 45mcg with prn Duonebs
prn nebulized bronchodilators
I suspect his SOB multifactorial--this has been noted on prior admissions for similar (May 2024)
Spirometry showing severe restriction; BMI 34
Suspect RLD due to obesity, sedentary lifestyle, deconditioning with chronic elevated RHD
Prior Home O2 eval showed--92% on RA, 90% on ambulation, total distance was 25 feet/did not require O2 on discharge
He is now limited due to fractures, rehab will be beneficial
Will order IS bedside as well
CT chest showing mostly subsegmental atelectasis or pneumonia
It does not appear that he has acute pulmonary edema as a cause of concern for his hypoxia, and he sounds clear on exam
He is already on Eliquis so doubtful that he is experiencing an acute PE, resume on home Eliquis when able
History of chronic HF
Diuresis with his home dose of lasix 80mg PO daily
Cardiology on board and recommendations appreciated
Replete electrolytes with K>4, Mg>2
Continue with nocturnal BiPAP and prn during the day during naps
Adjust O2 flow rate bled into machine to keep sats as above
Check morning VBG to ensure that pCO2 + pH are stable--7.45/55/116/38.2 (alkalotic likely mixed)
PT/OT, OOB
Pain control
Maintain euglycemia with goal BG >100 and <180
DVT ppx: Eliquis
Pulmonary service will continue to follow along.
He is encouraged to continue following up with us in the office as last visit was with Dr. Rivas in January 2024.
Diagnostic Data
CXR 07/29/24- No acute cardiopulmonary abnormality. Low lung volumes with elevation of the right hemidiaphragm and likely bibasilar atelectasis.
Chest X-Ray: 05/21/24- Low lung volumes. No active pulmonary process.
Tibia/fibula left XR 07/29/2024: Minimally displaced proximal fibular shaft fracture.
CTA 08/02/24- 1. Minimal airspace consolidation and air bronchograms at the right medial lung base, most suggestive of subsegmental atelectasis or pneumonia.
2. Minimal linear opacity at the left lung base, suggestive of scarring or subsegmental atelectasis.
3. Severe coronary arterial calcification. Please correlate with symptoms of and risk factors for coronary artery disease, with further workup as clinically appropriate.
4. 2.5 cm right adrenal nodule, likely representing a benign adenoma.
CT Scan: CHEST 05/22/24- No CT evidence for an acute cardiopulmonary process. Low lung volumes with scattered mild bilateral subsegmental atelectasis. Moderate elevation of the right hemidiaphragm.
LE duplex 05/21/24- No evidence of deep venous thrombosis bilaterally.
Echo: 05/17/24- LV size and function with no regional wall motion abnormality. LVEF is approximately 60 to 65% by Villalpando's method of discs. Mild concentric LVH. Normal right ventricular size and function. No significant valvular disease. Compared
to prior from November 28, 2023, overall LV function is normal 60-65% previously low normal at approximately 50%.
LHC 05/24/24- irregularities in the distal LAD there are 70% lesions in the ostia of both diagonals, relatively improved compared to prior study in 2019. 60-70% RCA lesion in the proximal/mid vessel.
INTERVENTIONS: 1. Successful IFR of the 60-70% proximal/mid RCA lesion, demonstrating nonocclusive disease (IFR = 0.93).
Mj 05/21/24- FEV1 1.0L 31%, FVC 1.37L 32%, ratio 73. Post FEV1 1.02L 32% no BD response
Reports and relevant images were personally reviewed.
-----
Total time spent today was 51 minutes for this encounter. Time includes reviewing laboratory test/imaging results, reviewing pertinent medical records, obtaining and reviewing medical history, performing an appropriate exam, ordering medications,
tests and procedures. Time also includes documentation of this encounter, coordinating patient care and communicating with other healthcare professionals. Total time does not include separately billed tests performed on this date of service.
Subjective Data
-
Date of Service:
Date of Service: August 02, 2024
Chief Complaint: Pulmonary Follow Up
Subjective:
SOB is stable, no worsening
Remains on 4L NC
Objective Data
Data Reviewed
Vital Signs / I&O / Oxygen:
Vital Signs
Temp Pulse Resp BP Pulse Ox
98.2 F 64 20 126/76 94
08/02/24 07:05 08/02/24 08:30 08/02/24 07:26 08/02/24 08:30 08/02/24 08:00
Intake and Output
08/01/24 08/02/24 08/03/24
06:59 06:59 06:59
Intake Total 400 / 400 1200 / 1200 120 / 120
Output Total 1800 / 1800 2000 / 1999
Balance -1400 / -1400 -800 / -800 120 / 120
SaO2 94
Nasal Cannula flow liters per 4
minute
Physical Exam
General: Comfortable and Other (NAD)
HEENT: Normocephalic, Anicteric and Moist Mucous Membranes
Cardiovascular: S1-S2 and Regular Rhythm
Respiratory: Clear and Non-Labored Respirations
GI: Soft, Non Distended and Non Tender
Neurology: Awake, Alert and Other (immobilized in boots)
Skin: Warm, Dry and Good Color
Labs/Micro/Reports
Lab Data
08/02/24 05:31
08/02/24 05:31
[2024-08-02] MEDS: DESENEX/MITRAZOL/ZEASORB 1 APPLIC TOPICAL ×2 (10:33→23:06)
[2024-08-02] MEDS: BACTROBAN 2% OINTMENT 1 APPLIC TOPICAL (10:34)
--- NOTE | 2024-08-02 11:01 | CM ---
Addendum entered by Rosalva Hopkins RN 08/02/24 14:04:
Message to Resident Ralph Bagley asking if patient needs Ortho Boot --> patient will need CAM Boot which will be ordered.
Addendum entered by Rosalva Hopkins RN 08/02/24 11:44:
Seen by wound care nurse.
Case discussed with EBER Hurt Liaison.
Original Note:
Patient with Dx Proximal Fibular Shaft Fracture after fall, Acute respiratory failure with hypoxia, anemia, NAOMI. CT Chest today. O2 4L. WBAT left leg. PT/OT; requires assist of 2, recommend skilled rehab.
Spoke with patient's sister Kyra; the private caregiver is in place for 8hrs/day M-F and possibly some weekend hours. Kyra and brother in law will check in on the patient as able. There will not be a caregiver at night. Per Kyra, patient
was over income per the [facility] so doesn't receive caregivers through the Waiver program. Kyra needs 24 hr notice of d/c in order to line up the caregiver. She is unsure if she is available to help her brother before 08/05. The patient
doesn't have home O2. The sister is aware that [facility] will resume service.
Plan continue to follow patient's progress with PT/OT.
Plan watch for any home O2 needs.
Plan home with [facility], with caregiver & family support.
--- NOTE | 2024-08-02 11:03 | W.PN.CD ---
Addendum entered and electronically signed by Jose Adorno DO 08/03/24 09:14:
Correction: Atrial fibrillation is paroxysmal, not persistent.
Original Note:
Today's Communication / Plan
-
Start metoprolol succinate 25 mg daily.
Start albuterol q4h.
Change furosemide to 80 mg PO daily tomorrow. Increase to 80 mg PO BID PRN weight gain.
Hold ARB.
Start dapagliflozin 10 mg daily.
Impression / Plan
-
Impression/Plan: 73 y/o male with HTN, IDDM, anemia, CKDIII, PAF on apixaban, medically managed CAD and HFimpEF admitted with fall with fibular shaft fracture.
#HFimpEF
-Acute on chronic.
-Weight is up mildly from last admission, d/c 06/05/24 weight 111.8 kg lb now 112.6 kg.
-He states weight at home is 246 lbs on Lasix 80mg daily.
-Continue empagliflozin and furosemide 80 mg IV.
-Daily weight, I/Os, and follow BMP. He does not appear grossly volume overloaded on exam.
-Change for furosemide 80 mg PO daily (BID PRN weight gain) tomorrow.
-Start metoprolol succinate 25 mg daily.
-Replace magnesium (done).
#Pulmonary disease/hypoxic respiratory failure
-Chronic.
-PFT's show significant COPD (FEV1/FVC = 0.67; FEV1 = 1.0 L, 31% predicted, GOLD stage III/IV).
-Possibly exacerbated by non-selective beta smooth? Expiratory wheezes/rhonchi throughout.
-Start bronchodilators.
-Cardioselective beta blockers only.
#NAOMI
-Acute on CKD 3.
-Baseline Cr 1.3-1.7, admit 2.2, peak 2.5, back to 1.7.
-Continue to hold SGLT2i, ARB.
-Start metoprolol succinate 25 mg daily.
-Furosemide to 80 mg PO daily tomorrow (BID PRN weight gain).
-Restart SGLT2i (dapagliflozin 10 mg daily while admitted, empagliflozin 10 mg daily as an outpatient).
#Anemia
-Acute on chronic.
-Normal MCV.
-Likely multifactorial (orthopedic fracture, AoCD, CKD).
-Ferritin > 100. This is NOT Fe deficiency.
#CAD
-Stable w/o angina.
-2V CAD at cath 05/24/24: 70% in two Diag, 60-70% pRCA.
-Continue atorvastatin and apixaban.
#Persistent atrial fibrillation
-Currently in AF.
-Not currently rate controlled (underlying CHB with PPM) due to tenuous blood pressure.
-A sense, V paced on tele.
-[id number]: score at least 6 (Heart failure, HTN, age 75 or more, Diabetes Mellitus, Vascular disease).
-Oral Anticoagulation: Eliquis 5mg BID, continue.
#HTN
-Chronic, stable.
-Had hypotension in the ER improved with Midodrine and 250ml IV fluid bolus.
-No longer requiring midodrine, but he is not hypertensive off of all medications.
#Heart block
-Chronic, stable.
-S/p Medtronic PPM.
#IDDM Type II
-Chronic, stable.
-HbA1c = 6.6%.
-Per hospitalist.
-He is appropriately on SGLT2i as an outpatient.
#Fall sustained left fib fracture, minimally displaced
- Fall, mechanical, no syncope
Subjective/Interval History:
Hospitalist is getting a CT chest (non-contrast).
Weight is down 3.6 kg from yesterday (112.6 <-- 116.2).
Blood pressures are better.
SaO2 95% on 4LNC.
Not requiring midodrine.
DATA:
CT Chest, 08/02/2024:
IMPRESSION:
1. Minimal airspace consolidation and air bronchograms at the right medial lung base, most suggestive of subsegmental atelectasis or pneumonia.
2. Minimal linear opacity at the left lung base, suggestive of scarring or subsegmental atelectasis.
3. Severe coronary arterial calcification. Please correlate with symptoms of and risk factors for coronary artery disease, with further workup as clinically appropriate.
4. 2.5 cm right adrenal nodule, likely representing a benign adenoma.
CT Abdomen, 07/30/2024:
IMPRESSION:
1. No significant acute abnormality identified in the abdomen or pelvis, within the limits of unenhanced CT, as described above.
Cardiac Catheterization, 05/24/2024:
CONCLUSIONS:
1. Right dominant circulation with dense external calcification of the proximal LAD, 70% lesions in the ostia of both diagonals, improved from prior diagnostic study in 2019 and a nonocclusive 60-70% lesion in the proximal/mid RCA (IFR = 0.93).
2. Moderate to severely elevated filling pressures (LVEDP = 21 mmHg, PCWP = 25 mmHg at 117.5 kg).
3. Severe postcapillary pulmonary hypertension (PA = 65/30/42 mmHg, PCWP = 25 mmHg, PVR = 2.70 Petersen units).
PFT's, 05/21/2024:
Physical Exam
Vital Signs/Labs
Vital Signs
Temp Pulse Resp BP Pulse Ox
36.8 C 75 20 126/76 95
08/02/24 07:05 08/02/24 10:21 08/02/24 10:21 08/02/24 08:30 08/02/24 08:00
07/31/24 08/01/24 08/02/24
11:59 11:59 11:59
Actual Weight 114.7 kg 116.2 kg 112.6 kg
08/02/24 05:31
08/02/24 05:31
Magnesium 1.5 mg/dl (1.6-2.3) L 08/02/24 05:31
07/29/24
15:40
Uzk-O-Eunvusymfrm Pept 381
Physical Exam
Constitutional: No acute distress and Comfortable
EENT: Anicteric and Moist mucous membranes
Cardiovascular: Pedal edema is absent, JVD pressure is normal, Rhythm/rate is irregular, S1S2 is normal and Murmur/rub/gallop absent
Respiratory: Respiratory effort normal, Crackles Absent, Wheeze Present and Rhonchi Present
GI: Soft, Distention absent, Flat, Non tender and Normal bowel sounds
Neuro/Psych: AO x 3
Data Reviewed
-
Date of Service: August 02, 2024
Medical Decision Making: Reviewed Test Results, Independent Historian Assessment, Test Interpretation and Review of Case with other Provider
EKG: Tracing Personally Visualized and interpreted and Report Reviewed by me
Echo: Report Reviewed by me
X-Ray/CT/US/MRI/NUC/PET: Image Personally Visualized and interpreted and Report Reviewed by me
Medical Tests (PFT, Pathology etc): Image Personally Visualized and interpreted and Report Reviewed by me
Labs: Labs Reviewed by me
--- NOTE | 2024-08-02 11:21 | PTCARENOTE ---
Addendum entered by Lopez Johnson RN 08/02/24 12:22:
Report to 3rd floor nurse
Original Note:
Report to 4th floor
--- NOTE | 2024-08-02 12:22 | PTCARENOTE ---
Pt sent to [address] [facility]
[2024-08-02 12:52] LABS: Glucose - Point of Care 218 mg/dl (70-99)
--- NOTE | 2024-08-02 13:15 | PN.CDI ---
CDI
- -
CDI:
Physician Documentation Request
Admit Date: 07/29/24 18:33
Dear Doctor Yudi,
Patient has history of atrial fibrillation.
H&P states 'Past medical history... paroxysmal atrial fib' Further down in H&P it is referred to as 'Persistent Afib...'
07/30 cardio consultation states 'past medical history of CAD, PAF on Eliquis, ....' further down in their note it is 'persistent atrial fibrillation -rate controlled'
08/02 hospitalist note 'permanent atrial fibrillation'
In an attempt to clarify potentially conflicting documentation, please clarify the type of atrial fibrillation:
Paroxysmal atrial fibrillation - terminates spontaneously or with intervention within 7 days of onset
Persistent atrial fibrillation - episodes of continuous AF that last more than 7 days and do not self-terminate
Permanent atrial fibrillation - when a decision has been made to accept the presence of AF and there is no further attempt to restore or maintain sinus rhythm
Other - please specify
Use of terms such as suspected, likely, concern for, or probable (associated with a specific diagnosis that is being evaluated, monitored, or treated as if it exists) are acceptable and can be coded in the inpatient setting, when documented at the
time of discharge.
Thank you,
Elza Davila RN, BSN
CDI Specialist
tiger text
Please use your independent medical judgment in providing your response.
[2024-08-02] MEDS: FARXIGA 10 MG PO (13:18)
[2024-08-02] MEDS: TOPROL XL 25 MG PO (13:18)
--- NOTE | 2024-08-02 13:29 | W.PN.NEPH.PH ---
Today's Communication / Plan
-
diurese
Assessment/Plan
-
IMP:
Left Leg pain due to minimally Displaced Proximal Fibular Shaft Fracture
Reactive leukocytosis
chronic HFpEF: recovered EF
NAOMI on CKD3-mid 1 range
Permanent Atrial Fibrillation
Essential HTN
IDDM2
Obesity due to excess calories
CAD
s/p PPM
h/o K stone
Plan:
follow BMP
continue IV lasix, weight decreasing
restarted farxiga
no ARB for now while actively diuresing
-
-
Date of Service: August 02, 2024
CC / HPI / ROS
-
Chief Complaint:
NAOMI
CKD
History of Present Illness:
NAOMI/Cr down to 1.7 stable
BP stable
no fever
hb stable low
Review of Systems:
SOB still, on supplemental O2
no n/v
on O2 2lit
Labs
-
Labs:
WBC 7.9 10^3/uL (4.8-10.8) 08/02/24 05:31
RBC 2.96 10^6/uL (4.70-6.10) L 08/02/24 05:31
Hgb 9.1 g/dL (13.0-18.0) L 08/02/24 05:31
Hct 26.6 % (39.0-52.0) L 08/02/24 05:31
Plt Count 150 10^3/uL (130-400) D 08/02/24 05:31
Sodium 141 mmol/L (135-145) 08/02/24 05:31
Potassium 4.1 mmol/L (3.5-5.1) 08/02/24 05:31
Chloride 97 mmol/L (98-107) L 08/02/24 05:31
Carbon Dioxide 35 mmol/L (22-30) H 08/02/24 05:31
BUN 41 mg/dl (9-20) H 08/02/24 05:31
Creatinine 1.7 mg/dL (0.7-1.3) H 08/02/24 05:31
eGFR 41.52 08/02/24 05:31
Glucose 153 mg/dl (70-99) H 08/02/24 05:31
Calcium 8.4 mg/dl (8.4-10.2) 08/02/24 05:31
Phosphorus 2.8 mg/dl (2.5-4.5) 08/02/24 05:31
Zvj-G-Sxpimhsdeef Pept 381 pg/ml 07/29/24 15:40
Albumin 3.3 g/dl (3.5-5.0) L 07/29/24 20:39
Physical Exam
-
Vital Signs:
Vital Signs
Temp Pulse Resp BP Pulse Ox
99 F 64 20 111/63 95
08/02/24 12:28 08/02/24 12:28 08/02/24 12:28 08/02/24 12:28 08/02/24 12:28
Cardiovascular:: Regular rate and rhythm
Respiratory:: Bilateral: Coarse and Bilateral: Rales
Lung Excursion:: Normal
Abdomen:: Nontender and Soft
Bowel Sounds:: Normal
Extremity Edema:: +2: Bilateral:
[2024-08-02] MEDS: DUONEB 3 ML INH ×2 (15:40→19:10)
[2024-08-02 16:59] LABS: Glucose - Point of Care 172 mg/dl (70-99)
[2024-08-02] MEDS: NOVOLOG FLEXPEN-LOW RESISTANCE 1 UNITS SC (17:03)
--- NOTE | 2024-08-02 17:46 | CM ---
Patient asked to speak with CM. He stated that he feels he will need SNF and would like referrals sent to: [facility], [facility], [facility], and [facility].
Will review therapy notes and send referrals to admissions.
Plan: Case management will continue to follow and assist with discharge planning. Tentative transfer to a SNF. Will need auth.
--- NOTE | 2024-08-02 17:52 | WOUNDNOTE ---
[facility] RN note: t/c 3W front and spoke with Blanka RN/law clerk who stated patient is on a [employer] Accumax. Blanka to let SEGUNDO Vega know patient should be on an air mattress and this feature writer will call county supervisor for an air bed. T/C Spoke with
supervisor newspaper deliveries Nelson and requested an Centrella Max air or Centrella Max Wide air bed for room 317-1.
[2024-08-02 21:47] LABS: Glucose - Point of Care 229 mg/dl (70-99)
[2024-08-02] MEDS: LANTUS 0.1 UNITS SC (23:06)
[2024-08-02] MEDS: LIPITOR 10 MG PO (23:07)
[2024-08-03 00:25] VITALS: PULSE 2; PULSE 74
[2024-08-03 04:00] VITALS: PULSE 2; PULSE 71
[2024-08-03 06:00] VITALS: BMI 35.5
[2024-08-03 06:46] VITALS: BP 115/56
[2024-08-03] MEDS: ADVAIR HFA 45/21 MCG INHALER 2 PUFF INH ×2 (07:13→19:30)
[2024-08-03] MEDS: DUONEB 3 ML INH ×4 (07:13→19:30)
[2024-08-03 07:29] LABS: Glucose - Point of Care 157 mg/dl (70-99)
[2024-08-03 08:37] LABS: Hematocrit 27.8 % (39.0-52.0); Hemoglobin 9.5 g/dL (13.0-18.0); Mean Corp Hgb Conc. 34.2 g/dL (33.0-37.0); Mean Corpuscular Hgb 31.7 pg (27.0-31.0); Mean Corpuscular Volume 92.7 fL (80.0-94.0); Mean Platelet Volume 12.9 fL (7.4-10.4); Platelet Count 124 10^3/uL (130-400); Red Cell Dist. Width 15.6 % (11.5-14.5); White Blood Cell Count 6.8 10^3/uL (4.8-10.8)
[2024-08-03] MEDS: NOVOLOG FLEXPEN-LOW RESISTANCE 1 UNITS SC (08:47)
[2024-08-03] MEDS: NOVOLOG FLEXPEN 2 UNITS SC ×3 (08:47→17:36)
[2024-08-03] MEDS: LEXAPRO 20 MG PO (08:48)
[2024-08-03] MEDS: MIRALAX PO ×2 (08:48→09:10)
[2024-08-03] MEDS: NEURONTIN 300 MG PO ×2 (08:48→20:42)
[2024-08-03] MEDS: LASIX 80 MG PO (08:48)
[2024-08-03] MEDS: FARXIGA 10 MG PO (08:48)
[2024-08-03] MEDS: BUSPAR 10 MG PO ×2 (08:49→20:42)
[2024-08-03] MEDS: ELIQUIS 5 MG PO ×2 (08:49→20:48)
[2024-08-03] MEDS: TOPROL XL 25 MG PO (08:50)
[2024-08-03] MEDS: PROTONIX 40 MG PO (08:52)
[2024-08-03 09:07] LABS: Blood Urea Nitrogen 44 mg/dl (9-20); Calcium 8.7 mg/dl (8.4-10.2); Carbon Dioxide 36 mmol/L (22-30); Chloride 98 mmol/L (98-107); Estimated Creatinine Clearance 53 ml/min; Glucose 142 mg/dl (70-99); Magnesium 1.5 mg/dl (1.6-2.3); Potassium 4.5 mmol/L (3.5-5.1); Sodium 140 mmol/L (135-145); eGFR 48.25
--- NOTE | 2024-08-03 09:31 | W.PN.PUL3 ---
Addendum entered and electronically signed by Sulema Romano DO 08/04/24 11:48:
Patient is discharged and now appealing
We will sign off at this time, please call with questions
Original Note:
Today's Communication / Plan
-
Weaning down on O2, now on 2L which will likely be able to wean to RA
Continue home inhalers, IS
Needs aggressive rehab, agree with discharge planning to SNF
Further ortho recs per team
OP pulmonary FU recommended
Assessment
-
73-year-old male non-smoker with a past medical history of COPD/asthma, EARL/OHS on nocturnal BiPAP, history of pneumonia, DM type II, CHB s/p PPM, A-fib on Eliquis, depression/anxiety, CKD, right adrenal mass, history of recurrent falls and chronic
HFpEF who presents with a trip and fall that happened at home prior to arrival. When EMS arrived his pressure was low in the 80s/50s. In the ER he was afebrile to 98.1 �F, pulse rate 76, breathing at 18 breaths/min, BP 93/46 and saturating 95% on
room air. Initial labs showed leukocytosis to 14.2, anemia 11.2, creatinine 2.2, serum bicarbonate level 32, troponin negative at <0.012, proBNP 381, and glucose 202. Imaging with left tibia/fibula XR showed a minimally displaced proximal fibular
shaft fracture. CXR showed no acute cardiopulmonary abnormality with low lung volumes and elevated right hemidiaphragm. He was admitted to the hospitalist service and orthopedics recommended no urgent need for surgical intervention. He developed
an NAOMI and nephrology was consulted. He has required between room air and 2 L/min for majority of his hospitalization, however on the morning of 08/01, he required 5 L/min. Pulmonary service now consulted for additional management/recommendations.
Impression:
#Acute respiratory failure with hypoxia on supplemental oxygen -most likely due to hypoventilation as CXR on 07/29/2024 showed low lung volumes with elevated right hemidiaphragm and bibasilar atelectasis
#Fall with left minimally displaced proximal fibular shaft fracture
#Anemia (baseline Hb 10�11.5g/dL)
#Thrombocytopenia
#NAOMI on CKD (baseline Cr approximately 1.6) - improving
#DM type II c/b hyperglycemia
#Chronic right lower lobe subsegmental atelectasis (seen on prior CT chest from 05/22/2024, as well as CT chest from 11/2023)
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
COPD/asthma
Chronic allergic conjunctivitis
EARL on BiPAP
CKD
Depression/Anxiety disorder
History of retroperitoneal hematoma c/b hemorrhagic shock (06/2023)
Right adrenal mass stable compared to June 2023
Recurrent falls/ambulatory dysfunction
Chronic A-fib on Eliquis
Hypertension/hyperlipidemia
DM type II
CAD s/p recent stent to RCA
Third-degree heart block s/p PPM
Chronic constipation
Cholelithiasis
Spinal stimulator, history of laminectomy
Right adrenal mass
Chronic HFpEF with mild concentric LVH
Moderate-severity PH (mPAP: 42mmHg with PVR: 2.7 LOO via RHC in May 2024)
Plan:
Currently 96% on 2L NC, improving, likely can be weaned to RA
Continue supplemental O2 and titrate down to maintain SpO2 88-95%
Incentive spirometer encouraged
Continue Advair 45mcg with prn Duonebs
prn nebulized bronchodilators
I suspect his SOB multifactorial--this has been noted on prior admissions for similar (May 2024)
Spirometry showing severe restriction; BMI 34
Suspect RLD due to obesity, sedentary lifestyle, deconditioning with chronic elevated RHD
Prior Home O2 eval showed--92% on RA, 90% on ambulation, total distance was 25 feet/did not require O2 on discharge
He is now limited due to fractures, rehab will be beneficial
Continue IS at bedside
CT chest showing mostly subsegmental atelectasis or pneumonia
It does not appear that he has acute pulmonary edema as a cause of concern for his hypoxia, and he sounds clear on exam
He is already on Eliquis so doubtful that he is experiencing an acute PE, resume on home Eliquis when able
History of chronic HF
Diuresis with his home dose of lasix 80mg PO daily
Cardiology on board and recommendations appreciated
Replete electrolytes with K>4, Mg>2
Continue with nocturnal BiPAP and prn during the day during naps
Adjust O2 flow rate bled into machine to keep sats as above
Check morning VBG to ensure that pCO2 + pH are stable--7.45/55/116/38.2 (alkalotic likely mixed)
PT/OT, OOB
Pain control
Maintain euglycemia with goal BG >100 and <180
DVT ppx: Eliquis
He is encouraged to continue following up with us in the office as last visit was with Dr. Rivas in January 2024
Discharge planning to SNF per team
Diagnostic Data
CXR 07/29/24- No acute cardiopulmonary abnormality. Low lung volumes with elevation of the right hemidiaphragm and likely bibasilar atelectasis.
Chest X-Ray: 05/21/24- Low lung volumes. No active pulmonary process.
Tibia/fibula left XR 07/29/2024: Minimally displaced proximal fibular shaft fracture.
CTA 08/02/24- 1. Minimal airspace consolidation and air bronchograms at the right medial lung base, most suggestive of subsegmental atelectasis or pneumonia.
2. Minimal linear opacity at the left lung base, suggestive of scarring or subsegmental atelectasis.
3. Severe coronary arterial calcification. Please correlate with symptoms of and risk factors for coronary artery disease, with further workup as clinically appropriate.
4. 2.5 cm right adrenal nodule, likely representing a benign adenoma.
CT Scan: CHEST 05/22/24- No CT evidence for an acute cardiopulmonary process. Low lung volumes with scattered mild bilateral subsegmental atelectasis. Moderate elevation of the right hemidiaphragm.
LE duplex 05/21/24- No evidence of deep venous thrombosis bilaterally.
Echo: 05/17/24- LV size and function with no regional wall motion abnormality. LVEF is approximately 60 to 65% by Villalpando's method of discs. Mild concentric LVH. Normal right ventricular size and function. No significant valvular disease. Compared
to prior from November 28, 2023, overall LV function is normal 60-65% previously low normal at approximately 50%.
LHC 05/24/24- irregularities in the distal LAD there are 70% lesions in the ostia of both diagonals, relatively improved compared to prior study in 2019. 60-70% RCA lesion in the proximal/mid vessel.
INTERVENTIONS: 1. Successful IFR of the 60-70% proximal/mid RCA lesion, demonstrating nonocclusive disease (IFR = 0.93).
Mj 05/21/24- FEV1 1.0L 31%, FVC 1.37L 32%, ratio 73. Post FEV1 1.02L 32% no BD response
Reports and relevant images were personally reviewed.
-----
Total time spent today was 51 minutes for this encounter. Time includes reviewing laboratory test/imaging results, reviewing pertinent medical records, obtaining and reviewing medical history, performing an appropriate exam, ordering medications,
tests and procedures. Time also includes documentation of this encounter, coordinating patient care and communicating with other healthcare professionals. Total time does not include separately billed tests performed on this date of service.
Subjective Data
-
Date of Service:
Date of Service: August 03, 2024
Chief Complaint: Pulmonary Follow Up
Subjective:
Doing well today, on 2L O2
Angry about leaving
Objective Data
Data Reviewed
Vital Signs / I&O / Oxygen:
Vital Signs
Temp Pulse Resp BP Pulse Ox
97.5 F 64 16 115/56 96
08/03/24 06:46 08/03/24 07:13 08/03/24 07:13 08/03/24 06:46 08/03/24 06:46
Intake and Output
10/08/03/24 08/04/24
06:59 06:59 06:59
Intake Total 1200 / 1200 480 / 480
Output Total 2000 / 1999 450 / 450
Balance -800 / -800
SaO2 96
Nasal Cannula flow liters per 2
minute
Physical Exam
General: Comfortable and Other (NAD)
HEENT: Normocephalic, Anicteric and Moist Mucous Membranes
Cardiovascular: S1-S2 and Regular Rhythm
Respiratory: Clear and Non-Labored Respirations
GI: Soft, Non Distended and Non Tender
Neurology: Awake, Alert and Other (immobilized in boots)
Skin: Warm, Dry and Good Color
Labs/Micro/Reports
Lab Data
08/03/24 08:15
08/03/24 08:15
--- NOTE | 2024-08-03 09:59 | W.PN.UPDATE ---
Addendum entered and electronically signed by Ramon Betts MD 08/03/24 10:26:
Clarifying statements: The patient has paroxysmal atrial fibrillation. Also, during this hospitalization, the patient has never had acute decompensation of his chronic heart failure with preserved ejection fraction.
Original Note:
Update Note
Progress Note Update
I saw and evaluated the patient. I reviewed the resident�s note and agree with findings and plan as documented in the resident�s note.
Pt states 'now I have a cough' productive of sputum
Gen: remains NAD, Awake and alert, NCAT
Eyes: EOMI, PERRLA, no scleral icterus.
Neck: supple.
CV: RRR, +S1/S2, no m/r/g.
Resp: CTAB anteriorly
Abd: +BS, soft, NT, ND
Skin: No rashes.
Neuro: CN 2-12 intact, non-focal.
Psych: Normal mood and affect.
Tibia/Fibula Xray: Minimally displaced proximal fibular shaft fracture.
CT chest:
1. Minimal airspace consolidation and air bronchograms at the right medial lung base, most suggestive of subsegmental atelectasis or pneumonia.
2. Minimal linear opacity at the left lung base, suggestive of scarring or subsegmental atelectasis.
3. Severe coronary arterial calcification. Please correlate with symptoms of and risk factors for coronary artery disease, with further workup as clinically appropriate.
4. 2.5 cm right adrenal nodule, likely representing a benign adenoma.
Acute hypoxemic respiratory insufficiency:
-clarification/correction from yesterday's note. After yesterday's note was placed it was discovered that the 5L O2 was running to the BIPAP machine and not the pt's nasal cannula tubing
-Appreciate pulmonary. Patient's acute hypoxemic respiratory failure is likely due to hypoventilation, EARL/OHS, low lung volumes with elevated hemidiaphragm and bibasilar atelectasis, and restrictive lung disease due to obesity.
-CT chest above
-case discussed with pulmonary. CT chest reports reviewed with Dr. Romano and she feels bacterial PNA unlikely. She has cleared the pt for discharge from her standpoint.
NAOMI on CKD3:
-likely due to hypotension
-holding Losartan
-Cr has improved to 1.5
-bladder scans with PRN straight cath
Left Leg pain due to minimally Displaced Proximal Fibular Shaft Fracture:
-Reactive leukocytosis
-case discussed with ortho on admission, OK for weight bearing as tolerated with crutches or walker
-follow up in office in 4 weeks for x-rays (per Dr. Franklin)
-PT/OT
Chronic HFpEF:
-CXR: No acute cardiopulmonary abnormality. Low lung volumes with elevation of the right hemidiaphragm and likely bibasilar atelectasis.
-proBNP 381
-cont home dose Lasix
-no evidence of acute exacerbation of HFpEF
-daily wts, I/Os
Permanent Atrial Fibrillation:
-cont Eliquis
Essential HTN
-patient was hypotensive in beginning of ER say, BPs have improved
-holding ELEV[employer] EXAMIN[employer] Losartan/Coreg
DM2:
-cont Lantus/premeal Novolog/SSI/accuchecks
Obesity due to excess calories:
-Encourage weight loss
-Affects all aspects of care
FULL/Eliquis
Medically cleared for d/c. Case management aware.
--- NOTE | 2024-08-03 10:34 | W.PN.HOSP.TC ---
Today's Communication/Plan
-
Pt clinically improved. Cough not thought to be infectious in nature. To be discharged today.
Assessment / Plan
Assessment / Plan
1. Proximal Fibular Shaft Fracture
- Pt seen and cleared by ortho
- Pt is OK to bear weight as tolerated; can use crutches or walker as needed
- Pt given CAM walking boot rx prior to d/c
- Pt advised to follow up with ortho outpatient in 4 weeks.
2. History of CHF
- CXR shows no acute cardiopulmonary abnormality and bibasilar atelectasis.
- ProBNP 381
- Only trace edema today.
- Continue home dose Lasix
3. Stage 3 Chronic Kidney Disease
- Creatinine 1.5 today; steadily improving.
- Repeat Cr in AM
4. HTN
- 127/66, stable today.
- Per card reccs, consider restarting home meds.
5. A-fib
- Continue Eleiquis, Coreg held.
6. Type 2 DM
- Continue Lantus/ Sliding Scale Insulins
- Accucheck AC/HS
7. Misc
- Follow up with social issues; pt may need to be [facility]c [facility] as he was living alone, and his apartment lease recently ended.
8. Cough
- Dr. Betts discussed CT chest with pulm. Pulm feels bacteria pneumonia is unlikely and pt cleared for d/c.
Anticipated Discharge: Today
Subjective/Interval History
-
Date of Service: August 03, 2024
Pt notes interval improvement in his shortness of breath but notes he has cough, productive of white/whitish yellow sputum. Was able to do PT on side of bed yesterday, still pain in left ankle.
Objective Data
-
Labs:
Laboratory Results
08/03/24
08:15
WBC 6.8
Hgb 9.5 L
Hct 27.8 L
Plt Count 124 L
Sodium 140
Potassium 4.5
Chloride 98
Carbon Dioxide 36 H
BUN 44 H
Creatinine 1.5 H
Glucose 142 H
Calcium 8.7
Vital Signs:
Vital Signs
Temp Pulse Resp BP Pulse Ox
97.5 F 64 16 115/56 96
08/03/24 06:46 08/03/24 07:13 08/03/24 07:13 08/03/24 06:46 08/03/24 06:46
I&O
08/02/24 08/03/24 08/04/24
06:59 06:59 06:59
Intake Total 1200 / 1200 480 / 480
Output Total 2000 / 2000 450 / 450
Balance -800 / -800
Review of Systems
-
History Source: Patient
Constitutional: Reports No Symptoms
Respiratory: Reports Cough
Cardiac: Reports No Symptoms
Abdomen/GI: Reports No Symptoms
Neuro: Reports No Symptoms
Physical Exam
-
General: No Apparent Distress, Comfortable and Obese
HEENT: Normocephalic and Atraumatic
Respiratory: Clear to Auscultation
Cardiac: Regular Rhythm and S1/S2
GI: Soft and Nontender
Skin: Warm
Neuro: Awake and Alert
Psych: Calm
Data Reviewed
-
CT Scan: Report Reviewed by me
Labs: Labs Reviewed by me and Discussed with Patient
--- NOTE | 2024-08-03 10:40 | W.PN.CD ---
Today's Communication / Plan
-
Cardiology will sign off
Please resume usual meds as he approaches discharge as able
F/u with me as planned 09/13/2024 at 2 pm
Impression / Plan
-
Impression/Plan: 73 y/o male with HTN, IDDM, anemia, CKDIII, PAF on apixaban, medically managed CAD and HFimpEF admitted with fall with fibular shaft fracture.
Chronic HFimpEF
- Today's weight is good for him at 112 kg
- At discharge resume usual meds as able
AFib
- Rate control is PERFECT as he has complete heart block
- Currently in sinus
- On Eliquis
- At discharge I hope he is back on his usual medical regimen
CKD, Cr improved to 1.5
Anemia
CAD,2 V CAD at cath 05/24/24: 70% in two Diag, 60-70% pRCA,
HTN
Heart block - S/p [employer] PPM.
Type II DM - per hospitalist.
Fall sustained left fib fracture, minimally displaced
- Fall, mechanical, no syncope
Lung disease, meds added yesterday, sees pulmonary routinely
Subjective/Interval History:
Feeling well. + some cough
DATA:
CT Chest, 08/02/2024:
IMPRESSION:
1. Minimal airspace consolidation and air bronchograms at the right medial lung base, most suggestive of subsegmental atelectasis or pneumonia.
2. Minimal linear opacity at the left lung base, suggestive of scarring or subsegmental atelectasis.
3. Severe coronary arterial calcification. Please correlate with symptoms of and risk factors for coronary artery disease, with further workup as clinically appropriate.
4. 2.5 cm right adrenal nodule, likely representing a benign adenoma.
CT Abdomen, 07/30/2024:
IMPRESSION:
1. No significant acute abnormality identified in the abdomen or pelvis, within the limits of unenhanced CT, as described above.
Cardiac Catheterization, 05/24/2024:
CONCLUSIONS:
1. Right dominant circulation with dense external calcification of the proximal LAD, 70% lesions in the ostia of both diagonals, improved from prior diagnostic study in 2019 and a nonocclusive 60-70% lesion in the proximal/mid RCA (IFR = 0.93).
2. Moderate to severely elevated filling pressures (LVEDP = 21 mmHg, PCWP = 25 mmHg at 117.5 kg).
3. Severe postcapillary pulmonary hypertension (PA = 65/30/42 mmHg, PCWP = 25 mmHg, PVR = 2.70 Petersen units).
PFT's, 05/21/2024:
Physical Exam
Vital Signs/Labs
Vital Signs
Temp Pulse Resp BP Pulse Ox
97.5 F 64 16 115/56 96
08/03/24 06:46 08/03/24 07:13 08/03/24 07:13 08/03/24 06:46 08/03/24 06:46
08/02/24 08/03/24 08/04/24
06:59 06:59 06:59
Actual Weight 112.6 kg 112.128 kg
08/03/24 08:15
08/03/24 08:15
Magnesium 1.5 mg/dl (1.6-2.3) L 08/03/24 08:15
07/29/24
15:40
[id number] Pept 381
Physical Exam
Constitutional: No acute distress
EENT: Anicteric
Cardiovascular: Rhythm & rate is regular and Pedal edema is absent
Respiratory: Respiratory effort normal, Lungs clear to auscul. and Crackles Absent
GI: Soft and Distention absent
Neuro/Psych: AO x 3
Data Reviewed
-
Date of Service: August 03, 2024
--- NOTE | 2024-08-03 11:40 | CM ---
Addendum entered by Cesilia Jaramillo 08/03/24 12:02:
Additional referrals sent via [facility] to [facility], [facility], [facility], and [facility] per Wisam's request.
CM to follow for bed availability and will need to obtain authorization once facility of choice is identified.
Original Note:
CM following for discharge to SNF. Referrals sent to [facility], [facility] and [facility]. [facility] will get back to me about bed availability.
left for Wisam's sister with update regarding referrals that were made, asking that she contact me with preferences.
CM to continue to follow for discharge to SNF pending pt/family input.
[2024-08-03 11:45] LABS: Glucose - Point of Care 270 mg/dl (70-99)
--- NOTE | 2024-08-03 11:57 | W.PN.NEPH.PH ---
Today's Communication / Plan
-
follow BMP
Assessment/Plan
-
IMP:
Left Leg pain due to minimally Displaced Proximal Fibular Shaft Fracture
Reactive leukocytosis
chronic HFpEF: recovered EF
NAOMI on CKD3-mid 1 range
Permanent Atrial Fibrillation
Essential HTN
IDDM2
Obesity due to excess calories
CAD
s/p PPM
h/o K stone
Plan:
follow BMP
on po lasix
restarted farxiga
no ARB for now while BP on low side
could consider 25mg losartan on dc
-
-
Date of Service: August 03, 2024
CC / HPI / ROS
-
Chief Complaint:
NAOMI
CKD
History of Present Illness:
NAOMI/Cr down to 1.5 stable
BP stable
no fever
hb stable 9.5
Review of Systems:
mild SOB
no n/v
Labs
-
Labs:
WBC 6.8 10^3/uL (4.8-10.8) 08/03/24 08:15
RBC 3.00 10^6/uL (4.70-6.10) L 08/03/24 08:15
Hgb 9.5 g/dL (13.0-18.0) L 08/03/24 08:15
Hct 27.8 % (39.0-52.0) L 08/03/24 08:15
Plt Count 124 10^3/uL (130-400) L 08/03/24 08:15
Sodium 140 mmol/L (135-145) 08/03/24 08:15
Potassium 4.5 mmol/L (3.5-5.1) 08/03/24 08:15
Chloride 98 mmol/L (98-107) 08/03/24 08:15
Carbon Dioxide 36 mmol/L (22-30) H 08/03/24 08:15
BUN 44 mg/dl (9-20) H 08/03/24 08:15
Creatinine 1.5 mg/dL (0.7-1.3) H 08/03/24 08:15
eGFR 48.25 08/03/24 08:15
Glucose 142 mg/dl (70-99) H 08/03/24 08:15
Calcium 8.7 mg/dl (8.4-10.2) 08/03/24 08:15
Phosphorus 2.8 mg/dl (2.5-4.5) 08/02/24 05:31
Lts-Z-Dwyiwkbfvfa Pept 381 pg/ml 07/29/24 15:40
Albumin 3.3 g/dl (3.5-5.0) L 07/29/24 20:39
Physical Exam
-
Vital Signs:
Vital Signs
Temp Pulse Resp BP Pulse Ox
97.5 F 66 16 115/56 96
08/03/24 06:46 08/03/24 11:29 08/03/24 11:29 08/03/24 06:46 08/03/24 11:29
Cardiovascular:: Regular rate and rhythm
Respiratory:: Bilateral: Coarse
Lung Excursion:: Normal
Abdomen:: Nontender and Soft
Bowel Sounds:: Normal
Extremity Edema:: None: Bilateral:
--- NOTE | 2024-08-03 14:21 | CM ---
NILDA spoke with Wisam's sister earlier today to discuss discharge. She advsied that Wisam wants to return home and does not want to go to SNF. Per Wisam's sister, she has hired assistance in the home, however due to Wisam's hospitalization, the
person who was providing the care/assistance is not available until Friday. She would like Wisam to remain in the hospital until night.
NILDA notified Dr. Betts of same; pt provided with IMM. He 'did not feel up to it' at the time, would not accept the form, and told me to call his sister. I did call his sister and left a voicemail, providing her the telephone number to call to appeal
prior to 4:30 today.
NILDA returned to the room to provide the form to Wisam, as he was asking for it because he is now willing to call. Apparently his sister would not call on his behalf.
I reiterated that the call must be made today and made sure he understood that not calling would result in him being responsible for the cost of the hospitalization moving forward. Wisam understood and advised he would call today.
[2024-08-03] MEDS: BACTROBAN 2% OINTMENT 1 APPLIC TOPICAL (14:25)
[2024-08-03] MEDS: DESENEX/MITRAZOL/ZEASORB 1 APPLIC TOPICAL ×2 (14:25→20:42)
[2024-08-03] MEDS: NOVOLOG FLEXPEN-LOW RESISTANCE 3 UNITS SC (14:26)
[2024-08-03 15:00] VITALS: BP 138/68
--- NOTE | 2024-08-03 16:48 | W.DCSUMMARY ---
Addendum entered and electronically signed by Renetta Wagner MD 08/06/24 16:44:
Read, reviewed, and agree. See same day progress note for additional details. Time spent coordinating care, DC planning, review of DC plan of care with resident, transition of care, review of records in EMR, med rec, consults, notes, d/w
consultants, nursing, family, and CM = 45 minutes as previously documented.
Addendum entered and electronically signed by Ralph Bagley DO, Resident 08/06/24 16:38:
The patient was medically cleared for discharge on 08/03/2024. However the discharge was appealed by the patient and ultimately denied. Upon denial, the patient is to be discharged today, 08/06/2024. In the interim, the patient complained of cough
which was worked up with a chest X-ray that only exhibited signs of subsegmental atelectasis. The patient remained afebrile and stable symptomatically. The patient was assessed for home O2 and the assessment suggested the patient should be using 2
liters of oxygen at home. Although the patient seemed amenable to the prospect, the patient's sister denied delivery of the home O2 apparatus when it showed up at the their doorstep. The need for home O2 and the therapeutic benefits of home O2 were
discussed with the patient at length. The need for home O2 should be re-discussed with the patient's primary care provider at follow up visit.
Original Note:
Discharge Summary
Discharge Data
Date of Admission: 07/29/24
Date of Discharge: 08/03/24
Total time spent discharging patient (in min): 45
-
Pending Results: No
Hospital Course
Keith Connolly is a 73-year-old male with a past medical history of atrial fibrillation, asthma, congestive heart failure, chronic obstructive pulmonary disease, hypertension, insulin requiring diabetes mellitus, coronary artery disease, sleep
apnea, and cardiac pacemaker for third-degree heart block who presented to the emergency department at [facility] on July 29, 2024 due to a trip and fall that occurred around 6 hours prior to arrival. The patient states that he was in
bed and reached out of bed to collect something when he fell and injured his left leg and tailbone. After the injury the patient stated that he could not bear weight on his left leg. The patient also noted chronic lower extremity edema and
shortness of breath. He denied any headaches dizziness syncopal episodes chest pain or loss of consciousness during the episode. Initially he refused EMS, but the pain to his left lower extremity became worse and so he contacted EMS. While en
route, patient was noted to be hypotensive with systolic blood pressures in the 80s.
On examination in the emergency department, the patient was mildly tachypneic, had positive Rales, and had bilateral lower extremity swelling, right greater than left. The patient was worked up in the emergency department where he was found to have
a left nondisplaced proximal fibular fracture. Head CT, cervical spine x-ray, pelvic x-ray, left ankle film did not show any acute findings. In addition to radiographic studies, labs showed an elevated white count of 14.2 and a creatinine of 2.2.
The patient was thus admitted to [facility] that night for left proximal fibular fracture and acute kidney injury. He did not seem to be having an acute exacerbation of his congestive heart failure with reduced ejection fraction.
With regards to his nondisplaced left fibular fracture, the patient was evaluated by the orthopedist Dr. Franklin who stated that the patient was okay for weightbearing as tolerated with crutches or a walker and was to follow-up in his office in 4
weeks for repeat x-rays. While in the hospital the patient was cleared for physical and Occupational Therapy.
The patient's acute kidney injury followed a more complex course. The patient's home dose of Lasix of 80 mg p.o. was initially followed. However due to hypotension on admission, and a trend in increasing creatinine, with a maximum value of 2.5,
Lasix was ultimately held. For similar reasons, the patient's losartan, coreg, Jardiance, and hydralazine were also held, with plans to continue if the patient became hypertensive. As the patient began to maintain his blood pressures, Lasix was
continued on his home dose, with the hope that his home medications could be added back to his usual medical regimen at discharge. Over the course of his stay, the patient's creatinine gradually improved to 1.5 on day of discharge, and daily
weights trended down signifying sufficient diuresis.
During the patient's stay he was also worked up for acute respiratory failure with hypoxia on supplemental oxygen. The patient was between being on room air and 2 L by nasal cannula for the majority of his hospitalization. However at one point it
was thought that he was using 5 L nasal cannula. Because of this finding a CT of the chest was ordered which showed mostly subsegmental atelectasis. The patient was treated with Advair and as needed DuoNebs as well as as needed nebulized
bronchodilators. The dietetic tech suspected that the shortness of breath was multifactorial as this had been noted on prior admissions. His spirometry showed severe restriction and his BMI is 34 thus the dietetic tech suspected obesity
hypoventilation syndrome, sedentary lifestyle, deconditioning. As a supplemental oxygen was continued he was titrated down to maintain oxygen saturation between 88 and 95%. The patient was encouraged to follow-up with the dietetic tech
Rob outpatient as his last office visit was in January 2024.
Keith Connolly's discharge was complicated by the fact that, although the patient's sister had hired assistance for Keith at home, the person was providing the care was not able to be with the patient until Friday. Since the patient had been
admitted to the hospital, his fitness professional had other obligations. The decision was made to discharge the patient to a retirement facility temporarily until the situation was rectified. Keith Connolly was medically cleared for discharge on
August 03, 2024.
Discharge Plan
-
Patient Disposition: Home (Routine Discharge)
Discharge Diagnosis/Procedures: Minimally Displaced Proximal Fibular Shaft Fracture
Acute Kidney Injury in the Setting of CKD Stage 3
Persistent Atrial Fibrillation
Essential Hypertension
Diabetes Mellitus Type 2
Obesity
Condition: Fair
Diet: Diabetic, Carb Controlled
Activity: As tolerated
Additional Activity: Pt being discharged with CAM boot with instructions to bear weight as tolerated with crutches or walker.
Activity Restrictions/Additional Instructions:
Wound Care Instructions
L great toe-clean with saline, Bactroban ointment, cover with non stick dressing, change daily.
Bilateral knee high Tubigrip as tolerated; remove at bedtime; reapply every morning.
Air mattress
Turning schedule
Soft heel relief boots as tolerated (i.e. TruVue lite boots); elevate heels off bed with pillows while boots off.
Pressure redistributing chair cushion (i.e. air chair cushion).
Follow up with feed and farm management adviser.
Follow up with orthopedic surgeon.
Referrals:
Rashel Rivas MD [Active] - in four to six weeks (full PFTs on day of office visit)
Chasidy Franklin DO [Active] - in three to four weeks
NONE,* [Family Provider] - in less than 1 week
Keith Adam MD [Active] - 09/13/24 2:00 pm
Prescriptions:
New
mupirocin 2 % Ointment
1 applic topical DAILY Qty: 2 0RF
metoprolol succinate 25 mg Tablet Extended Release 24 Hr
25 mg PO DAILY Qty: 30 0RF
Continued
atorvastatin [Lipitor] 10 mg Tablet
10 mg PO HS
escitalopram oxalate [Lexapro] 20 mg Tablet
20 mg PO DAILY
fluticasone propion-salmeterol [Wixela Inhub] 100-50 mcg/dose Blister With Device
1 inh INHALATION R BID
Eliquis 5 mg tablet
5 mg PO BID Qty: 30 0RF
gabapentin 300 mg capsule
300 mg PO BID
pantoprazole [Protonix] 40 mg Tablet,Delayed Release (Dr/Ec)
40 mg PO DAILY
buspirone 10 mg Tablet
10 mg PO BID
insulin lispro 100 unit/mL solution
0 sliding scale dose SC AC
Patient Comments:
04/09/24:141-180=4u,181-220=6u,221-260=8u,261-300=10u,301-350=12u,351-400=14u,401-500=16u
insulin glargine [Lantus Solostar U-100 Insulin] 100 unit/mL (3 mL) Insulin Pen
15 unit SC HS
Refresh Classic (PF) 1.4-0.6 % dropperette
1 drops BOTH EYES QIDPRN PRN (Reason: dry eyes)
Jardiance 10 mg Tablet
10 mg PO DAILY Qty: 0 0RF
polyethylene glycol 3350 [HealthyLax] 17 gram Powder In Packet
17 g PO DAILY Qty: 0 0RF
furosemide 80 mg Tablet
80 mg PO DAILY Qty: 0 0RF
Discontinued
carvedilol 12.5 mg Tablet
12.5 mg PO BID Qty: 10 0RF
hydralazine 50 mg Tablet
50 mg PO TID
losartan 100 mg Tablet
100 mg PO DAILY
Discharge Orders:
Discharge Patient (As Directed); Ordered 08/03/24
Ordered By: Ralph Bagley
Discharge Date and Time
Print Language: KOSOVAN
[2024-08-03 17:23] LABS: Glucose - Point of Care 218 mg/dl (70-99)
[2024-08-03] MEDS: NOVOLOG FLEXPEN-LOW RESISTANCE 2 UNITS SC (17:34)
[2024-08-03] MEDS: LIPITOR 10 MG PO (20:49)
[2024-08-03] MEDS: LANTUS 0.1 UNITS SC (20:49)
[2024-08-03 20:58] LABS: Glucose - Point of Care 180 mg/dl (70-99)
[2024-08-03 23:56] VITALS: PULSE 2
[2024-08-03 23:58] VITALS: BP 129/58
[2024-08-04] VITALS (7 sets, daily range): BP systolic 116–125; BP diastolic 46–52; PULSE 2–69; BMI 35.7
[2024-08-04] MEDS: ADVAIR HFA 45/21 MCG INHALER 2 PUFF INH ×2 (07:19→20:47)
[2024-08-04] MEDS: DUONEB 3 ML INH ×4 (07:19→20:48)
[2024-08-04 08:03] LABS: Glucose - Point of Care 177 mg/dl (70-99)
[2024-08-04] MEDS: NEURONTIN 300 MG PO ×2 (08:24→21:33)
[2024-08-04] MEDS: LASIX 80 MG PO (08:24)
[2024-08-04] MEDS: PROTONIX 40 MG PO (08:24)
[2024-08-04] MEDS: ELIQUIS 5 MG PO ×2 (08:24→21:33)
[2024-08-04] MEDS: LEXAPRO 20 MG PO (08:24)
[2024-08-04] MEDS: BUSPAR 10 MG PO ×2 (08:24→21:34)
[2024-08-04] MEDS: TOPROL XL 25 MG PO (08:25)
[2024-08-04] MEDS: NOVOLOG FLEXPEN-LOW RESISTANCE 1 UNITS SC ×2 (08:25→18:16)
[2024-08-04] MEDS: MIRALAX 17 GRAMS PO (08:25)
[2024-08-04] MEDS: BACTROBAN 2% OINTMENT 1 APPLIC TOPICAL (08:26)
[2024-08-04] MEDS: DESENEX/MITRAZOL/ZEASORB 1 APPLIC TOPICAL ×2 (08:26→21:36)
[2024-08-04] MEDS: FARXIGA 10 MG PO (08:26)
[2024-08-04] MEDS: NOVOLOG FLEXPEN 2 UNITS SC ×3 (08:26→18:16)
--- NOTE | 2024-08-04 09:12 | W.PN.UPDATE ---
Update Note
Progress Note Update
I saw and evaluated the patient. I reviewed the resident�s note and agree with findings and plan as documented in the resident�s note.
Pt awake and talking but states she feels lethargic.
Gen: continues to remain NAD, Awake and alert, NCAT
Eyes: EOMI, PERRLA, no scleral icterus.
Neck: supple.
CV: RRR, +S1/S2, no m/r/g.
Resp: continues to remain CTAB anteriorly
Abd: remains +BS, soft, NT, ND
Skin: No rashes.
Neuro: CN 2-12 intact, non-focal.
Psych: Normal mood and affect.
Tibia/Fibula Xray: Minimally displaced proximal fibular shaft fracture.
CT chest:
1. Minimal airspace consolidation and air bronchograms at the right medial lung base, most suggestive of subsegmental atelectasis or pneumonia.
2. Minimal linear opacity at the left lung base, suggestive of scarring or subsegmental atelectasis.
3. Severe coronary arterial calcification. Please correlate with symptoms of and risk factors for coronary artery disease, with further workup as clinically appropriate.
4. 2.5 cm right adrenal nodule, likely representing a benign adenoma.
Acute hypoxemic respiratory insufficiency:
-clarification/correction from yesterday's note. After yesterday's note was placed it was discovered that the 5L O2 was running to the BIPAP machine and not the pt's nasal cannula tubing
-Appreciate pulmonary. Patient's acute hypoxemic respiratory failure is likely due to hypoventilation, EARL/OHS, low lung volumes with elevated hemidiaphragm and bibasilar atelectasis, and restrictive lung disease due to obesity.
-CT chest above
-case discussed with pulmonary. CT chest reports reviewed with Dr. Romano and she feels bacterial PNA unlikely. She has cleared the pt for discharge from her standpoint.
NAOMI on CKD3:
-likely due to hypotension
-holding Losartan
-Cr has improved to 1.5
-bladder scans with PRN straight cath
Left Leg pain due to minimally Displaced Proximal Fibular Shaft Fracture:
-Reactive leukocytosis
-case discussed with ortho on admission, OK for weight bearing as tolerated with crutches or walker
-follow up in office in 4 weeks for x-rays (per Dr. Franklin)
-PT/OT
Chronic HFpEF:
-CXR: No acute cardiopulmonary abnormality. Low lung volumes with elevation of the right hemidiaphragm and likely bibasilar atelectasis.
-proBNP 381
-cont home dose Lasix
-no evidence of acute exacerbation of HFpEF
-daily wts, I/Os
Permanent Atrial Fibrillation:
-cont Eliquis
Essential HTN
-patient was hypotensive in beginning of ER say, BPs have improved
-holding [employer] RE[employer] Losartan/Coreg
DM2:
-cont Lantus/premeal Novolog/SSI/accuchecks
Obesity due to excess calories:
-Encourage weight loss
-Affects all aspects of care
FULL/Eliquis
Pt was discharged yesterday and appealed discharge. Remains medically stable for discharge.
--- NOTE | 2024-08-04 09:50 | CM ---
CM notified via fax by [facility] on 08/03/2024 at 10:24:57 PM that the Medicare health plan has determined that coverage should end. Notice provided to [employer] this am at 9:50am.
CM still awaiting pt's appeal determination from Donna BARGER at this time.
CM to continue to follow to assist with all discharge planning needs. Family has previously hired 'private home assistance' that will resume starting on 08/06/2024.
[2024-08-04 11:20] LABS: Glucose - Point of Care 290 mg/dl (70-99)
--- NOTE | 2024-08-04 12:44 | W.PN.NEPH.PH ---
Today's Communication / Plan
-
ok for d/c
Assessment/Plan
-
IMP:
Left Leg pain due to minimally Displaced Proximal Fibular Shaft Fracture
Reactive leukocytosis
chronic HFpEF: recovered EF
NAOMI on CKD3-mid 1 range
Permanent Atrial Fibrillation
Essential HTN
IDDM2
Obesity due to excess calories
CAD
s/p PPM
h/o K stone
Plan:
cr was at baseline
wt relatively stable on po lasix
cont farxiga
ok for 25mg losartan on dc
BMP in 1week with PCP
f/u nephro in [place]
-
-
Date of Service: August 04, 2024
CC / HPI / ROS
-
Chief Complaint:
NAOMI
CKD
History of Present Illness:
NAOMI/Cr down to 1.5 stable, no labs today
BP stable
no fever
hb stable 9.5
Review of Systems:
mild SOB-seem chronic
no n/v
no cp
Labs
-
Labs:
eGFR 48.25 08/03/24 08:15
Phosphorus 2.8 mg/dl (2.5-4.5) 08/02/24 05:31
Dqh-V-Qoyybwwklgu Pept 381 pg/ml 07/29/24 15:40
Albumin 3.3 g/dl (3.5-5.0) L 07/29/24 20:39
Physical Exam
-
Vital Signs:
Vital Signs
Temp Pulse Resp BP Pulse Ox
98.8 F 66 16 119/49 97
08/04/24 07:00 08/04/24 11:16 08/04/24 11:16 08/04/24 08:25 08/04/24 07:00
Cardiovascular:: Regular rate and rhythm
Respiratory:: Bilateral: CTA
Lung Excursion:: Normal
Abdomen:: Nontender and Soft
Extremity Edema:: None: Bilateral: (trace, TEDs present)
Lewis Catheter: No
--- NOTE | 2024-08-04 13:06 | VNURNOTE ---
Spoke with sister Kyra. She confirms they would like to resume [facility] services upon DC. Resumption referral in [facility]. [facility] Intake aware.
[2024-08-04] MEDS: NOVOLOG FLEXPEN-LOW RESISTANCE 3 UNITS SC (13:30)
--- NOTE | 2024-08-04 14:29 | W.PN.HOSP.TC ---
Today's Communication/Plan
-
Pt medically cleared for d/c awaiting placement.
Assessment / Plan
Assessment / Plan
Pt still medically cleared for discharge; awaiting placement.
1. Proximal Fibular Shaft Fracture
- Pt seen and cleared by ortho
- Pt is OK to bear weight as tolerated; can use crutches or walker as needed
- Pt given CAM walking boot rx prior to d/c
- Pt advised to follow up with ortho outpatient in 4 weeks.
2. History of CHF
- CXR shows no acute cardiopulmonary abnormality and bibasilar atelectasis.
- ProBNP 381
- Only trace edema today.
- Continue home dose Lasix
3. Stage 3 Chronic Kidney Disease
- Creatinine 1.5 today; steadily improving.
- Repeat Cr in AM
4. HTN
- 127/66, stable today.
- Per card reccs, consider restarting home meds.
5. A-fib
- Continue Eleiquis, Coreg held.
6. Type 2 DM
- Continue Lantus/ Sliding Scale Insulins
- Accucheck AC/HS
7. Misc
- Follow up with social issues; pt may need to be d/c to termite helper care facility as he was living alone, and his apartment lease recently ended.
8. Cough
- Dr. Betts discussed CT chest with pulm. Pulm feels bacteria pneumonia is unlikely and pt cleared for d/c.
Anticipated Discharge: Today
Subjective/Interval History
-
Date of Service: August 04, 2024
Pt nots some residual cough and ankle pain, but denies SOB, CP, abdominal pain, n/v/d, lower extremity edema. Pt resting comfortably, speaking in full sentences and eating his lunch as I spoke with him.
Objective Data
-
Vital Signs:
Vital Signs
Temp Pulse Resp BP Pulse Ox
98.8 F 66 16 119/49 97
08/04/24 07:00 08/04/24 11:16 08/04/24 11:16 08/04/24 08:25 08/04/24 07:00
I&O
08/03/24 08/04/24 08/05/24
06:59 06:59 06:59
Intake Total 480 / 480 1560 / 1560
Output Total 450 / 450
Balance 1560 / 1560
Review of Systems
-
History Source: Patient
Constitutional: Reports No Symptoms
Respiratory: Reports Cough (residual)
Cardiac: Reports No Symptoms
Abdomen/GI: Reports No Symptoms
Musculoskeletal: Reports No Symptoms
Physical Exam
-
General: Well Developed, No Apparent Distress, Comfortable and Obese
HEENT: Normocephalic and Atraumatic
Respiratory: Clear to Auscultation
Cardiac: Regular Rhythm and S1/S2
GI: Soft and Nontender
Musculoskeletal: No Edema
Skin: Warm and Dry
Neuro: Awake and Alert
Psych: Calm
[2024-08-04 18:03] LABS: Glucose - Point of Care 189 mg/dl (70-99)
[2024-08-04] MEDS: LIPITOR 10 MG PO (21:34)
[2024-08-04] MEDS: LANTUS 0.1 UNITS SC (21:37)
[2024-08-04 21:43] LABS: Glucose - Point of Care 198 mg/dl (70-99)
--- NOTE | 2024-08-04 23:33 | PTCARENOTE ---
Patient continues to make sexually inappropriate comments to this RN and PCT. Patient asked to stop making inappropriate comments by this RN. Patient became angry and stated 'You don't talk to me like that'. Patient began yelling and stating that he
has never spoken to anyone inappropriately and told this RN to 'Get the hell out of my room'. Care ongoing.
[2024-08-05 05:12] VITALS: PULSE 2
[2024-08-05 06:00] VITALS: BMI 35.5
[2024-08-05 07:00] VITALS: BP 153/65
[2024-08-05] MEDS: DUONEB 3 ML INH ×4 (07:26→20:23)
[2024-08-05] MEDS: ADVAIR HFA 45/21 MCG INHALER 2 PUFF INH ×2 (07:26→20:23)
[2024-08-05 08:13] LABS: Glucose - Point of Care 160 mg/dl (70-99)
--- NOTE | 2024-08-05 08:30 | W.PN.UPDATE ---
Update Note
Progress Note Update
I saw and evaluated the patient. I reviewed the resident�s note and agree with findings and plan as documented in the resident�s note.
No new complaints.
Gen: NAD, Awake and alert, NCAT
Eyes: remains EOMI, PERRLA, no scleral icterus.
Neck: supple.
CV: RRR, +S1/S2, no m/r/g.
Resp: CTAB anteriorly
Abd: continues to remain +BS, soft, NT, ND
Skin: No rashes.
Neuro: CN 2-12 intact, non-focal.
Psych: Normal mood and affect.
Tibia/Fibula Xray: Minimally displaced proximal fibular shaft fracture.
CT chest:
1. Minimal airspace consolidation and air bronchograms at the right medial lung base, most suggestive of subsegmental atelectasis or pneumonia.
2. Minimal linear opacity at the left lung base, suggestive of scarring or subsegmental atelectasis.
3. Severe coronary arterial calcification. Please correlate with symptoms of and risk factors for coronary artery disease, with further workup as clinically appropriate.
4. 2.5 cm right adrenal nodule, likely representing a benign adenoma.
Acute hypoxemic respiratory insufficiency:
-clarification/correction from yesterday's note. After yesterday's note was placed it was discovered that the 5L O2 was running to the BIPAP machine and not the pt's nasal cannula tubing
-Appreciate pulmonary. Patient's acute hypoxemic respiratory failure is likely due to hypoventilation, EARL/OHS, low lung volumes with elevated hemidiaphragm and bibasilar atelectasis, and restrictive lung disease due to obesity.
-CT chest above
-case discussed with pulmonary. CT chest reports reviewed with Dr. Romano and she feels bacterial PNA unlikely. She has cleared the pt for discharge from her standpoint.
NAOMI on CKD3:
-likely due to hypotension
-holding Losartan
-Cr improved to 1.5
-bladder scans with PRN straight cath
Left Leg pain due to minimally Displaced Proximal Fibular Shaft Fracture:
-Reactive leukocytosis
-case discussed with ortho on admission, OK for weight bearing as tolerated with crutches or walker
-follow up in office in 4 weeks for x-rays (per Dr. Franklin)
-PT/OT
Chronic HFpEF:
-CXR: No acute cardiopulmonary abnormality. Low lung volumes with elevation of the right hemidiaphragm and likely bibasilar atelectasis.
-proBNP 381
-cont home dose Lasix
-no evidence of acute exacerbation of HFpEF
-daily wts, I/Os
Paroxysmal Atrial Fibrillation:
-cont Eliquis
Essential HTN
-patient was hypotensive in beginning of ER say, BPs have improved
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
DM2:
-cont Lantus/premeal Novolog/SSI/accuchecks
Obesity due to excess calories:
-Encourage weight loss
-Affects all aspects of care
FULL/Eliquis
Pt was discharged 08/03/24 and appealed discharge. Remains medically stable for discharge.
[2024-08-05] MEDS: MIRALAX 17 GRAMS PO (08:40)
[2024-08-05] MEDS: PROTONIX 40 MG PO (08:40)
[2024-08-05] MEDS: ELIQUIS 5 MG PO ×2 (08:40→20:05)
[2024-08-05] MEDS: BUSPAR 10 MG PO ×2 (08:41→20:05)
[2024-08-05] MEDS: LEXAPRO 20 MG PO (08:41)
[2024-08-05] MEDS: NEURONTIN 300 MG PO ×2 (08:41→20:05)
[2024-08-05] MEDS: FARXIGA 10 MG PO (08:41)
[2024-08-05] MEDS: LASIX 80 MG PO (08:45)
[2024-08-05] MEDS: TOPROL XL 25 MG PO (08:45)
[2024-08-05] MEDS: NOVOLOG FLEXPEN-LOW RESISTANCE 1 UNITS SC ×2 (08:46→17:10)
[2024-08-05] MEDS: NOVOLOG FLEXPEN 2 UNITS SC ×3 (08:52→17:10)
[2024-08-05] MEDS: BACTROBAN 2% OINTMENT 1 APPLIC TOPICAL (08:53)
[2024-08-05] MEDS: DESENEX/MITRAZOL/ZEASORB 1 APPLIC TOPICAL ×2 (08:53→20:16)
--- NOTE | 2024-08-05 10:54 | PTCARENOTE ---
attempted to wean pt off O2 after he reported he felt like he didn't need it. Removed O2 at 0950, checked SaO2 @ 1020, pt was 84% on RA. Put pt back on 2LO2, SaO2 up to 95% on 2L. Resp therapist and home care nurse notified.
--- NOTE | 2024-08-05 11:01 | RESPNOTE ---
assess pt for home 02 assessment. he is a 2 person assist to get out of bed and unable to walk.
on room air his 02 sat was 84% at rest
placed back on 2 lpm with 2l with sats increased to 96% at rest.
ordering MD notified via TT
--- NOTE | 2024-08-05 12:09 | W.PN.HOSP.TC ---
Today's Communication/Plan
-
O2 Assessment done; pt is in need of home O2 at 2L. Follow up with Donna.
Assessment / Plan
Assessment / Plan
Pt still medically cleared for discharge; awaiting placement.
Home O2 assessment performed today; pt is in need of continuous home O2 at 2L.
1. Proximal Fibular Shaft Fracture
- Pt seen and cleared by ortho
- Pt is OK to bear weight as tolerated; can use crutches or walker as needed
- Pt given CAM walking boot rx prior to d/c
- Pt advised to follow up with ortho outpatient in 4 weeks.
2. History of CHF
- CXR shows no acute cardiopulmonary abnormality and bibasilar atelectasis.
- ProBNP 381
- Only trace edema today.
- Continue home dose Lasix
3. Stage 3 Chronic Kidney Disease
- Creatinine 1.5 today; steadily improving.
- Repeat Cr in AM
4. HTN
- 127/66, stable today.
- Per card reccs, consider restarting home meds.
5. A-fib
- Continue Eleiquis, Coreg held.
6. Type 2 DM
- Continue Lantus/ Sliding Scale Insulins
- Accucheck AC/HS
7. Misc
- Follow up with social issues; pt may need to be d/c to senior living care facility as he was living alone, and his apartment lease recently ended.
8. Cough
- Dr. Betts discussed CT chest with pulm. Pulm feels bacteria pneumonia is unlikely and pt cleared for d/c.
Anticipated Discharge: Today
Subjective/Interval History
-
Date of Service: August 05, 2024
No complaints today. Pt resting in bed comfortably.
Objective Data
-
Vital Signs:
Vital Signs
Temp Pulse Resp BP Pulse Ox
98.6 F 77 18 153/65 96
08/04/24 23:20 08/05/24 11:06 08/05/24 11:06 08/05/24 08:45 08/05/24 11:06
I&O
08/04/24 08/05/24 08/06/24
06:59 06:59 06:59
Intake Total 1560 / 1560 1420 / 1420
Balance 1560 / 1560 1420 / 1420
Review of Systems
-
History Source: Patient
All other systems: Reviewed and negative
Physical Exam
-
General: Well Developed, Well Nourished and Obese
HEENT: Normocephalic and Atraumatic
Respiratory: Clear to Auscultation
Cardiac: Regular Rhythm and S1/S2
GI: Soft and Nontender
Musculoskeletal: Other
Skin: Warm
Neuro: Awake, Alert and Oriented
Psych: Calm
Data Reviewed
-
Old Records: Reviewed
--- NOTE | 2024-08-05 12:19 | W.PN.NEPH.PH ---
Today's Communication / Plan
-
follow labs
Assessment/Plan
-
IMP:
Left Leg pain due to minimally Displaced Proximal Fibular Shaft Fracture
Reactive leukocytosis
chronic HFpEF: recovered EF
NAOMI on CKD3-mid 1 range
Permanent Atrial Fibrillation
Essential HTN
IDDM2
Obesity due to excess calories
CAD
s/p PPM
h/o K stone
Plan:
cr was at baseline as of 08/03
wt relatively stable on po lasix
cont farxiga
ok for 25mg losartan on dc
check labs
BMP in 1week with PCP
f/u nephro in [place]
-
-
Date of Service: August 05, 2024
CC / HPI / ROS
-
Chief Complaint:
NAOMI
CKD
History of Present Illness:
NAOMI/Cr down to 1.5 stable, no labs today
BP stable
no fever
hb stable 9.5
Review of Systems:
mild SOB-seem chronic
no n/v
no cp
Labs
-
Labs:
WBC Cancelled 08/04/24 06:00
RBC Cancelled 08/04/24 06:00
Hgb Cancelled 08/04/24 06:00
Hct Cancelled 08/04/24 06:00
Plt Count Cancelled 08/04/24 06:00
Sodium Cancelled 08/04/24 06:00
Potassium Cancelled 08/04/24 06:00
Chloride Cancelled 08/04/24 06:00
Carbon Dioxide Cancelled 08/04/24 06:00
BUN Cancelled 08/04/24 06:00
Creatinine Cancelled 08/04/24 06:00
eGFR Cancelled 08/04/24 06:00
Glucose Cancelled 08/04/24 06:00
Calcium Cancelled 08/04/24 06:00
Phosphorus 2.8 mg/dl (2.5-4.5) 08/02/24 05:31
Lzq-K-Dqubardrdce Pept 381 pg/ml 07/29/24 15:40
Albumin 3.3 g/dl (3.5-5.0) L 07/29/24 20:39
Physical Exam
-
Vital Signs:
Vital Signs
Temp Pulse Resp BP Pulse Ox
98.6 F 77 18 153/65 96
08/04/24 23:20 08/05/24 11:06 08/05/24 11:06 08/05/24 08:45 08/05/24 11:06
Cardiovascular:: Regular rate and rhythm
Respiratory:: Bilateral: CTA
Lung Excursion:: Normal
Abdomen:: Nontender and Soft
Extremity Edema:: None: Bilateral:
Lewis Catheter: No
--- NOTE | 2024-08-05 12:33 | VNURNOTE ---
Home 02 paperwork faxed to Ros at [facility].
[2024-08-05 13:02] LABS: Glucose - Point of Care 242 mg/dl (70-99)
[2024-08-05] MEDS: NOVOLOG FLEXPEN-LOW RESISTANCE 2 UNITS SC (13:15)
[2024-08-05 15:00] VITALS: BP 140/70
--- NOTE | 2024-08-05 15:42 | CM ---
Reviewed chart, placed a call to patient's sister who requested that patient be home tomorrow prior to 11 as his caregivers will be available after that. Patient's appeal was denied. His sister was made aware. Attending updated. [facility] liason for [facility]
arranging for [facility] services.
Plan: Case management will continue to follow and assist with discharge planning. Home tomorrow with [facility].
[2024-08-05 16:53] LABS: Glucose - Point of Care 166 mg/dl (70-99)
[2024-08-05] MEDS: TYLENOL 650 MG PO (19:25)
[2024-08-05 20:43] LABS: Glucose - Point of Care 170 mg/dl (70-99)
[2024-08-05] MEDS: LIPITOR 10 MG PO (21:47)
[2024-08-05] MEDS: LANTUS 0.1 UNITS SC (21:47)
[2024-08-05 23:10] VITALS: PULSE 2; PULSE 63
[2024-08-05 23:56] VITALS: BP 140/67
[2024-08-06 04:06] VITALS: PULSE 2
[2024-08-06 07:00] VITALS: BP 143/73
[2024-08-06] MEDS: DUONEB 3 ML INH ×2 (07:33→11:17)
[2024-08-06] MEDS: ADVAIR HFA 45/21 MCG INHALER 2 PUFF INH (07:33)
[2024-08-06 07:34] LABS: Glucose - Point of Care 149 mg/dl (70-99)
[2024-08-06] MEDS: NOVOLOG FLEXPEN-LOW RESISTANCE SC (09:07)
[2024-08-06] MEDS: LASIX 80 MG PO (09:13)
[2024-08-06] MEDS: PROTONIX 40 MG PO (09:13)
[2024-08-06] MEDS: FARXIGA 10 MG PO (09:14)
[2024-08-06] MEDS: ELIQUIS 5 MG PO (09:14)
[2024-08-06] MEDS: BUSPAR 10 MG PO (09:14)
[2024-08-06] MEDS: LEXAPRO 20 MG PO (09:14)
[2024-08-06] MEDS: TOPROL XL 25 MG PO (09:14)
[2024-08-06] MEDS: NEURONTIN 300 MG PO (09:14)
[2024-08-06] MEDS: DESENEX/MITRAZOL/ZEASORB 1 APPLIC TOPICAL (09:15)
[2024-08-06] MEDS: MIRALAX PO (09:15)
[2024-08-06] MEDS: BACTROBAN 2% OINTMENT 1 APPLIC TOPICAL (09:16)
[2024-08-06] MEDS: NOVOLOG FLEXPEN 2 UNITS SC (09:20)
--- NOTE | 2024-08-06 10:52 | CM ---
Reviewed chart, patient medically cleared for discharge. Ambulance transport set up and transfer sheet was provided to [employer] [facility] manager. Patient will be going home with VN. He is refusing o2. [employer] rep tried to deliver yesterday and patient's
sister denied, and reprimanded [employer] rep. Spoke with attending to make aware. She spoke with patient who denied wanting o2. He was made aware of medical repercussions and dangers with not receiving enough o2. Patient expressed understanding and
still declined.
Plan: Case management will continue to follow and assist with discharge planning. Home with caregivers, sister and brother in law support and VN.
[2024-08-06 11:00] VITALS: BMI 36.0
--- NOTE | 2024-08-06 11:09 | W.PN.NEPH.PH ---
Today's Communication / Plan
-
dc planning
Assessment/Plan
-
IMP:
Left Leg pain due to minimally Displaced Proximal Fibular Shaft Fracture
Reactive leukocytosis
chronic HFpEF: recovered EF
NAOMI on CKD3-mid 1 range
Permanent Atrial Fibrillation
Essential HTN
IDDM2
Obesity due to excess calories
CAD
s/p PPM
h/o K stone
Plan:
continue lasix
continue farxiga
ok for 25mg losartan on dc
follow BMP
BMP in 1week with PCP
f/u nephro in [place]
-
-
Date of Service: August 06, 2024
CC / HPI / ROS
-
Chief Complaint:
NAOMI
CKD
History of Present Illness:
NAOMI/Cr down to 1.5 08/03, no labs today
BP stable
no fever
on supplemental O2
Review of Systems:
mild SOB-seem chronic
no n/v
no cp
complains of cough
Labs
-
Labs:
WBC Cancelled 08/04/24 06:00
RBC Cancelled 08/04/24 06:00
Hgb Cancelled 08/04/24 06:00
Hct Cancelled 08/04/24 06:00
Plt Count Cancelled 08/04/24 06:00
Sodium Cancelled 08/05/24 22:11
Potassium Cancelled 08/05/24 22:11
Chloride Cancelled 08/05/24 22:11
Carbon Dioxide Cancelled 08/05/24 22:11
BUN Cancelled 08/05/24 22:11
Creatinine Cancelled 08/05/24 22:11
eGFR Cancelled 08/05/24 22:11
Glucose Cancelled 08/05/24 22:11
Calcium Cancelled 08/05/24 22:11
Phosphorus 2.8 mg/dl (2.5-4.5) 08/02/24 05:31
Wtr-E-Qfdhknxazmh Pept 381 pg/ml 07/29/24 15:40
Albumin 3.3 g/dl (3.5-5.0) L 07/29/24 20:39
Physical Exam
-
Vital Signs:
Vital Signs
Temp Pulse Resp BP Pulse Ox
97.6 F 58 16 143/73 94
08/06/24 07:00 08/06/24 07:42 08/06/24 07:42 08/06/24 07:00 08/06/24 07:42
Cardiovascular:: Regular rate and rhythm
Respiratory:: Bilateral: Coarse
Lung Excursion:: Normal
Abdomen:: Nontender and Soft
Bowel Sounds:: Normal
Extremity Edema:: None: Bilateral:
--- NOTE | 2024-08-06 16:14 | W.PN.HOSP.TC ---
Addendum entered and electronically signed by Renetta Wagner MD 08/06/24 16:50:
I saw and evaluated the patient independently. I reviewed the resident�s note and agree with findings and plan as documented by Dr. Bagley.
GENERAL: well developed, well nourished, male in no apparent distress
HEENT: NC/AT
HEART: regular rate and rhythm, +S1, +S2
LUNGS : clear to auscultation bilaterally
ABDOM: soft, nontender, nondistended, + bowel sounds
EXT: no cyanosis, clubbing, or edema
NEUROLOGIC: grossly intact
Acute hypoxemic respiratory insufficiency--Appreciate pulmonary. Patient's acute hypoxemic respiratory failure is likely due to hypoventilation, EARL/OHS, low lung volumes with elevated hemidiaphragm and bibasilar atelectasis, and restrictive lung
disease due to obesity--OK for d/c BUT family refused O2
NAOMI on CKD3---likely due to hypotension--holding Losartan--Cr improved to 1.5--bladder scans with PRN straight cath
Left Leg pain due to minimally Displaced Proximal Fibular Shaft Fracture--Reactive leukocytosis-case discussed with ortho on admission, OK for weight bearing as tolerated with crutches or walker-follow up in office in 4 weeks for x-rays (per
Rigoberto)-PT/OT
Chronic HFpEF without acute exacerbation--CXR: No acute cardiopulmonary abnormality. Low lung volumes with elevation of the right hemidiaphragm and likely bibasilar atelectasis--cont home dose Lasix
Paroxysmal Atrial Fibrillation-cont Eliquis
Essential HTN-patient was hypotensive in beginning of ER say, BPs have improved-holding CEPHALOMETRIC ANALYST Losartan/Coreg
DM2-cont Lantus/premeal Novolog/SSI/accuchecks
Obesity due to excess calories-Encourage weight loss-Affects all aspects of care
code status --FULL
DVT proph--Eliquis
Original Note:
Today's Communication/Plan
-
.
Assessment / Plan
Assessment / Plan
Pt still medically cleared for discharge; to be discharged home today.
Home O2 assessment performed yesterday; pt is in need of continuous home O2 at 2L. Pt seems amenable, but per case management, upon O2 delivery, the patient's sister denied the delivery. Conversation was had with the patient about the importance of
oxygenation and the therapeutic benefits of home oxygen. Pt to be discharged home today.
1. Proximal Fibular Shaft Fracture
- Pt seen and cleared by ortho
- Pt is OK to bear weight as tolerated; can use crutches or walker as needed
- Pt given CAM walking boot rx prior to d/c
- Pt advised to follow up with ortho outpatient in 4 weeks.
2. History of CHF
- CXR shows no acute cardiopulmonary abnormality and bibasilar atelectasis.
- ProBNP 381
- Only trace edema today.
- Continue home dose Lasix
3. Stage 3 Chronic Kidney Disease
- Cr improved to 1.5. Follow up with PCP.
4. HTN
- 127/66, stable today.
- Per card reccs, consider restarting home meds.
5. A-fib
- Continue Eleiquis, Coreg held.
6. Type 2 DM
- Continue Lantus/ Sliding Scale Insulins
- Accucheck AC/HS
7. Misc
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
8. Cough
- Dr. Betts discussed CT chest with pulm. Pulm feels bacteria pneumonia is unlikely and pt cleared for d/c.
Anticipated Discharge: Today
Subjective/Interval History
-
Date of Service: August 06, 2024
Pt was medically cleared for discharge on August 04; patient appealed the discharge and appeal was denied. Pt still complains of some lingering cough. Home O2 assessment recommended home oxygen. Pt seems amenable, but per case management, upon O2
delivery, the patient's sister denied the delivery. Conversation was had with the patient about the importance of oxygenation and the therapeutic benefits of home oxygen. Pt to be discharged home today.
Objective Data
-
Vital Signs:
Vital Signs
Temp Pulse Resp BP Pulse Ox
97.6 F 62 16 143/73 94
08/06/24 07:00 08/06/24 11:20 08/06/24 11:20 08/06/24 07:00 08/06/24 07:42
I&O
08/05/24 08/06/24 08/07/24
06:59 06:59 06:59
Intake Total 1420 / 1420 720 / 720
Balance 1420 / 1420 720 / 720
Review of Systems
-
History Source: Patient
Constitutional: Reports No Symptoms
EENT: Reports No Symptoms Reported
Respiratory: Reports Cough
Cardiac: Reports No Symptoms
Abdomen/GI: Reports No Symptoms
Neuro: Reports No Symptoms
Physical Exam
-
General: No Apparent Distress, Comfortable, Conversant and Obese
HEENT: Normocephalic and Atraumatic
Respiratory: Clear to Auscultation
Cardiac: Regular Rhythm and S1/S2
GI: Soft and Nontender
Neuro: Awake, Alert and Oriented
Psych: Calm
Data Reviewed
-
Old Records: Reviewed
== END 2024-08-06 12:10 | disposition home health service (06) | DRG 563 ==
LOC: 3 WEST ACU 18:33
PROVIDERS: Registered Nurse; ADMITTING PHYSICIAN Student in an Organized Health Care Education/Training Program; ATTENDING PHYSICIAN Internal Medicine; CONSULT PHYSICIAN Internal Medicine; CONSULT PHYSICIAN Internal Medicine Critical Care Medicine; EMERGENCY PHYSICIAN Emergency Medicine; OTHER PHYSICIAN Internal Medicine Cardiovascular Disease
PROC: 5A09357 Assistance with Respiratory Ventilation, Less than 24 Consecutive Hours, Continuous Positive Airway Pressure (ICD-10-PCS; 2024-07-30)
DX: S82.492A Other fracture of shaft of left fibula, initial encounter for closed fracture (principal); I13.0 Hypertensive heart and chronic kidney disease with heart failure and stage 1 through stage 4 chronic kidney disease, or unspecified chronic kidney disease; N17.9 Acute kidney failure, unspecified; I42.9 Cardiomyopathy, unspecified; I44.2 Atrioventricular block, complete; I48.21 Permanent atrial fibrillation; I5A Non-ischemic myocardial injury (non-traumatic); J98.11 Atelectasis; E66.2 Morbid (severe) obesity with alveolar hypoventilation; I50.32 Chronic diastolic (congestive) heart failure; D69.6 Thrombocytopenia, unspecified; I27.20 Pulmonary hypertension, unspecified; D63.1 Anemia in chronic kidney disease; E11.22 Type 2 diabetes mellitus with diabetic chronic kidney disease; E11.40 Type 2 diabetes mellitus with diabetic neuropathy, unspecified; E11.65 Type 2 diabetes mellitus with hyperglycemia; F32.A Depression, unspecified; N18.30 Chronic kidney disease, stage 3 unspecified; J44.9 Chronic obstructive pulmonary disease, unspecified; Z68.34 Body mass index [BMI] 34.0-34.9, adult; I48.0 Paroxysmal atrial fibrillation; W06.XXXA Fall from bed, initial encounter; E78.00 Pure hypercholesterolemia, unspecified; F41.9 Anxiety disorder, unspecified; K40.90 Unilateral inguinal hernia, without obstruction or gangrene, not specified as recurrent; K21.9 Gastro-esophageal reflux disease without esophagitis; I25.10 Atherosclerotic heart disease of native coronary artery without angina pectoris; J98.4 Other disorders of lung; N20.0 Calculus of kidney; E27.9 Disorder of adrenal gland, unspecified; M10.9 Gout, unspecified; I95.9 Hypotension, unspecified; M54.2 Cervicalgia; M25.572 Pain in left ankle and joints of left foot; R29.6 Repeated falls; R09.02 Hypoxemia; R09.89 Other specified symptoms and signs involving the circulatory and respiratory systems; Z79.01 Long term (current) use of anticoagulants; Z79.4 Long term (current) use of insulin; Z79.84 Long term (current) use of oral hypoglycemic drugs; Z79.899 Other long term (current) drug therapy; Z95.0 Presence of cardiac pacemaker; Z87.01 Personal history of pneumonia (recurrent); Z91.81 History of falling; Z82.49 Family history of ischemic heart disease and other diseases of the circulatory system
CPT/HCPCS: 70450; 71046; 71250; 72125; 72170; 73590; 73610; 74176; 80048; 80076; 81003; 82533; 82570; 82607; 82728; 82746; 82805; 82962; 83036; 83540; 83550; 83735; 83880; 84100; 84132; 84300; 84484; 85025; 85027; 86850; 86900; 86901; 93005; 94640; 94660; 97116; 97163; 97167; 97530; 97535; 99285

== ENCOUNTER 2024-09-19 23:29 | Emergency (ER) | payer MEDICARE, SELFPAY ==
[2024-09-19 23:32] VITALS: BP 168/88
[2024-09-19 23:50] VITALS: BMI 35.4
[2024-09-20] VITALS (9 sets, daily range): BP systolic 113–148; BP diastolic 64–98
--- NOTE | 2024-09-20 00:33 | ED.GENMED ---
History of Present Illness
<ZOHREH Egan - Last Filed: 09/20/24 00:56>
General
Chief Complaint: Abdominal Symptoms
Source: patient
Time Seen by Provider: 09/20/24 00:10
Nursing documentation reviewed up to this point in time: agreed with
History of Present Illness
History of Present Illness:
Pt is a 73 yo M who presents to the ED via EMS for diarrhea. Pt states that he has had diarrhea for a few days now. Pt states that he has about 2 episodes of diarrhea a day since onset. He denies taking any medication for relief. Pt states that he
has been eating and drinking less since the diarrhea began. Pt also reports that he has mucus in his throat for months now. He states that he has to clear his throat and that he has some clear mucus production. Pt denies abdominal pain, nausea,
vomiting, hematochezia, fever, chills, cough, weakness, bloating, sick contacts.
Past History
<ZOHREH Egan - Last Filed: 09/20/24 00:56>
Past History
ED Past Medical History: Arrthythmia (Atrial fib), Asthma, CHF, COPD, HTN, IDDM, [place] (Denies) and Other (Sleep apnea uses CPAP, Neuropathy, PNA, )
ED Past Surgical History: Cardiac (Pacemaker for III degree heart blocl), Orthopedic (Right hip surgery, Back surgery, ) and Tonsilectomy
Social History
Tobacco: Non-smoker
Alcohol: None
Personal: Single
Living: with family (Sister)
Family History
Family History: Unable to obtain
Review of Systems
<ZOHREH Egan - Last Filed: 09/20/24 00:56>
Review of Systems
Allergies reviewed?: Yes
Constitutional: Reports no symptoms
EENT: Reports no symptoms
Respiratory: Reports no symptoms
Cardiac: Reports no symptoms
ABD/GI: Reports diarrhea
: Reports no symptoms
Neurological: Reports no symptoms
Phy Exam
<Marti Garner [facility] - Last Filed: 09/20/24 00:56>
General Physical Exam
General Presentation: well appearing
General age: appears stated age
General Skin: warm
General Habitus: normal
General Mental: alert
General Hydration: appears well hydrated
Cardiovascular Exam
Cardiovascular Exam: regular rate/rhythm
Pulmonary Exam
Pulmonary Exam: lungs clear
Gastrointestinal Exam
Gastrointestinal Exam: normal bowel sounds, non tender, soft and non distended
Palpation: left upper quadrant: No tenderness, left lower quadrant: No tenderness, right upper quadrant: No tenderness and right lower quadrant: No tenderness
Course
<Marti Garner [facility] - Last Filed: 09/20/24 00:56>
Orders/Labs/Results
Orders:
Orders
09/20/24 00:41
0.9% Sodium Chloride 1000 ml [Nss] 1,000 ml IV BOLUS
09/20/24 01:06
Complete Blood Count/With Diff Urgent
09/20/24 02:51
Comprehensive Metabolic Panel Urgent
Comment: REDRAW
Lipase Urgent
Comment: REDRAW
09/20/24 04:50
Barrier 1 applic APPLIC ONCE STA
Abnormal Lab Results
09/20/24 09/20/24 09/20/24
01:06 02:51 02:54
RBC 4.14 L 10^6/uL
(4.70-6.10)
Hgb 12.4 L g/dL
(13.0-18.0)
Hct 36.5 L %
(39.0-52.0)
MPV 12.9 H fL
(7.4-10.4)
Abs Immat Gran (auto) 0.1 H 10^3/uL
(0-0.05)
Immature Gran % 0.8 H %
(0-0.5)
Carbon Dioxide 33 H mmol/L
(22-30)
Glucose 123 H mg/dl
(70-99)
Calcium 8.3 L mg/dl
(8.4-10.2)
POC Glucose 103 H mg/dl
(70-99)
09/20/24 01:06
09/20/24 02:51
Vital Signs
Initial and Last Documented VS:
Initial Vital Signs
Temp Pulse Resp BP Pulse Ox
98.3 F 63 14 168/88 96
09/19/24 23:32 09/19/24 23:32 09/19/24 23:32 09/19/24 23:32 09/19/24 23:32
Last Documented Vital Signs
Temp Pulse Resp BP Pulse Ox
98.3 F 64 18 129/74 98
09/19/24 23:32 09/20/24 11:00 09/20/24 11:00 09/20/24 11:00 09/20/24 11:00
<Imtiaz Oliver, DO - Last Filed: 09/21/24 23:17>
Orders/Labs/Results
Orders:
Orders
09/20/24 00:41
0.9% Sodium Chloride 1000 ml [Nss] 1,000 ml IV BOLUS
09/20/24 01:06
Complete Blood Count/With Diff Urgent
09/20/24 02:51
Comprehensive Metabolic Panel Urgent
Comment: REDRAW
Lipase Urgent
Comment: REDRAW
09/20/24 04:50
Barrier 1 applic APPLIC ONCE STA
Abnormal Lab Results
09/20/24 09/20/24 09/20/24
01:06 02:51 02:54
RBC 4.14 L 10^6/uL
(4.70-6.10)
Hgb 12.4 L g/dL
(13.0-18.0)
Hct 36.5 L %
(39.0-52.0)
MPV 12.9 H fL
(7.4-10.4)
Abs Immat Gran (auto) 0.1 H 10^3/uL
(0-0.05)
Immature Gran % 0.8 H %
(0-0.5)
Carbon Dioxide 33 H mmol/L
(22-30)
Glucose 123 H mg/dl
(70-99)
Calcium 8.3 L mg/dl
(8.4-10.2)
POC Glucose 103 H mg/dl
(70-99)
09/20/24 01:06
09/20/24 02:51
Vital Signs
Initial and Last Documented VS:
Initial Vital Signs
Temp Pulse Resp BP Pulse Ox
98.3 F 63 14 168/88 96
09/19/24 23:32 09/19/24 23:32 09/19/24 23:32 09/19/24 23:32 09/19/24 23:32
Last Documented Vital Signs
Temp Pulse Resp BP Pulse Ox
98.3 F 64 18 129/74 98
09/19/24 23:32 09/20/24 11:00 09/20/24 11:00 09/20/24 11:00 09/20/24 11:00
<ZOHREH Egan - Last Filed: 09/20/24 00:56>
MDM/Problems Addressed
Differential Diagnosis Includes:
Viral gastroenteritis, dehydration
<ZOHREH Egan - Last Filed: 09/20/24 00:56>
*Critical Care Note
Total Time (30-74mins, 75-104mins- exclusive of procedures): Not Applicable
ED Attending Note
<ZOHREH Egan - Last Filed: 09/20/24 00:56>
-
Portions of this chart may have been created with voice recognition software.� Occasional wrong word or��sound alike� substitutions may have occurred due to the inherent limitations of voice recognition software.
<Imtiaz Oliver DO - Last Filed: 09/21/24 23:17>
ED Attending Note
Patient seen and examined by attending physician: Yes
I performed the substantive portion of visit, reviewed & personally made and approve the management plan that is documented in note by myself or MIRIAM.: Yes
ED Attending Note:
73-year-old gentleman presents to the emergency department after having diarrhea. This has been going on for several days now. He has been having about 2 episodes a day since this began several days ago patient also states that for months he has
been having excess mucus production in his mouth. He states he is getting tired of clearing his throat. He also reports some extra clear mucus production. Denies any difficulty swallowing. Reports no sore throat. Patient was seen in conjunction
with the PA student. I have reviewed and agree with the history and treatment plan presented. On my independent physical exam, patient is awake, alert, and oriented x3 minimal to no apparent distress resting comfortably on the bed. Heart is
regular rate rhythm. Lungs clear to auscultation bilaterally. Abdomen is soft and nontender. Moves all 4 extremities.
Discharge Plan
Departure
Patient Disposition: Home (Routine Discharge)
Date of Disposition: 09/20/24
Time of Disposition: 06:01
Patient with high blood pressure during this ER visit?: No
Discharge Problem:
Diarrhea
Instructions: Diarrhea in teens and adults, Dehydration, Adult (DC), [place] Diet, BLOOD PRESSURE
Prescriptions:
No Action
atorvastatin [Lipitor] 10 mg Tablet
10 mg PO HS
escitalopram oxalate [Lexapro] 20 mg Tablet
20 mg PO DAILY
fluticasone propion-salmeterol [Wixela Inhub] 100-50 mcg/dose Blister With Device
1 inh INHALATION R BID
Eliquis 5 mg tablet
5 mg PO BID Qty: 30 0RF
gabapentin 300 mg capsule
300 mg PO BID
pantoprazole [Protonix] 40 mg Tablet,Delayed Release (Dr/Ec)
40 mg PO DAILY
buspirone 10 mg Tablet
10 mg PO BID
insulin lispro 100 unit/mL solution
0 sliding scale dose SC AC
Patient Comments:
04/09/24:141-180=4u,181-220=6u,221-260=8u,261-300=10u,301-350=12u,351-400=14u,401-500=16u
insulin glargine [Lantus Solostar U-100 Insulin] 100 unit/mL (3 mL) Insulin Pen
15 unit SC HS
Refresh Classic (PF) 1.4-0.6 % dropperette
1 drops BOTH EYES QIDPRN PRN (Reason: dry eyes)
Jardiance 10 mg Tablet
10 mg PO DAILY Qty: 0 0RF
polyethylene glycol 3350 [HealthyLax] 17 gram Powder In Packet
17 g PO DAILY Qty: 0 0RF
furosemide 80 mg Tablet
80 mg PO DAILY Qty: 0 0RF
mupirocin 2 % Ointment
1 applic topical DAILY Qty: 2 0RF
metoprolol succinate 25 mg Tablet Extended Release 24 Hr
25 mg PO DAILY Qty: 30 0RF
Referrals:
[facility] [Outside]
[facility] [Outside]
UNKNOWN - PT DOES,NOT KNOW [Family Provider] -
Activity Restrictions/Additional Instructions:
It was a pleasure meeting you and taking part in your care. We hope for your continued healing and wellness.
Please read discharge instructions in their entirety. However, they are for general education and may not describe your exact diagnosis at discharge. Information on your ER visit and medical conditions were discussed with you along with appropriate
follow up information...
If indicated, please take your medications as instructed and indicated on discharge paperwork.
Please schedule a follow up appointment as directed. Call to schedule an appointment
Please return to the emergency department with ANY change in, persisting, or worsening of symptoms. If any of your symptoms do not improve, or persist, or become more severe within 6-12 hours, please return to the emergency department for further
care.
Please return to the emergency department if you develop a headache, neck pain/stiffness, fever greater than 100.4F, chest pain, shortness of breath, persistent nausea, vomiting, slurred speech, difficulty walking, numbness/tingling, weakness, signs
of infection or any other symptoms that are worrisome to you.
If you have any questions or concerns please do not hesitate to call the Hospital at or E-mail me directly at [email or web address]
Interventions
Interventions:
*Risk Screen - Suicide Last Done: 09/19/24 23:32
*General Assessment Last Done: 09/19/24 23:32
*Neglect/Abuse Screening Last Done: 09/19/24 23:32
ED- Fall Risk Assessment Last Done: 09/19/24 23:48
*ED COVID-19 Vaccine History Last Done: 09/19/24 23:48
*Nursing Disposition Last Done: 09/20/24 11:30
NP-Oabhha-Wtcjutnrno Assessment Last Done: 09/19/24 23:48
Discharge Date and Time
Discharge Date/Time: 09/20/24 11:30
Print Language: LITHUANIAN
[2024-09-20 01:17] LABS: % Basophils 0.8 % (0-2); % Eosinophils 2.8 % (0-6); % Immature Granulocytes 0.8 % (0-0.5); % Lymphocytes 28.1 % (20.5-51.1); % Monocytes 6.5 % (1.7-9.3); Absolute Basophils 0.1 10^3/uL (0-0.2); Absolute Eosinophils 0.3 10^3/uL (0-0.7); Absolute Immature Granulocytes 0.1 10^3/uL (0-0.05); Absolute Lymphocytes 2.7 10^3/uL (1.2-3.4); Absolute Monocytes 0.6 10^3/uL (0.1-0.6); Absolute Neutrophils 5.9 10^3/uL (1.4-6.5); Hematocrit 36.5 % (39.0-52.0); Hemoglobin 12.4 g/dL (13.0-18.0); Mean Corpuscular Volume 88.2 fL (80.0-94.0); Mean Platelet Volume 12.9 fL (7.4-10.4); Nucleated Red Blood Cells % 0 % (-); Platelet Count 200 10^3/uL (130-400); Red Blood Cell Count 4.14 10^6/uL (4.70-6.10); Red Cell Dist. Width 14.2 % (11.5-14.5); White Blood Cell Count 9.7 10^3/uL (4.8-10.8)
[2024-09-20 02:56] LABS: Glucose - Point of Care 103 mg/dl (70-99)
[2024-09-20 03:20] LABS: ALT (SGPT) 11 U/L (0-50); AST (SGOT) 17 U/L (17-59); Albumin 3.6 g/dl (3.5-5.0); Alkaline Phosphatase 70 U/L (38-126); Blood Urea Nitrogen 15 mg/dl (9-20); Calcium 8.3 mg/dl (8.4-10.2); Carbon Dioxide 33 mmol/L (22-30); Chloride 103 mmol/L (98-107); Estimated Creatinine Clearance 62 ml/min; Glucose 123 mg/dl (70-99); Potassium 3.7 mmol/L (3.5-5.1); Sodium 143 mmol/L (135-145); Total Protein 6.6 g/dl (6.3-8.2); eGFR 57.29
[2024-09-20] MEDS: NSS 1000 IV (03:26)
[2024-09-20 05:29] LABS: Lipase 80 U/L (23-300)
== END 2024-09-20 11:30 | disposition home or self-care (01) ==
LOC: EMR 23:29
PROVIDERS: EMERGENCY PHYSICIAN Student in an Organized Health Care Education/Training Program
DX: R19.7 Diarrhea, unspecified (principal); R09.89 Other specified symptoms and signs involving the circulatory and respiratory systems; I48.91 Unspecified atrial fibrillation; I11.0 Hypertensive heart disease with heart failure; I50.9 Heart failure, unspecified; J44.9 Chronic obstructive pulmonary disease, unspecified; E11.40 Type 2 diabetes mellitus with diabetic neuropathy, unspecified; G47.30 Sleep apnea, unspecified; J45.909 Unspecified asthma, uncomplicated; I25.2 Old myocardial infarction; Z95.0 Presence of cardiac pacemaker; Z87.01 Personal history of pneumonia (recurrent); Z79.01 Long term (current) use of anticoagulants; Z79.4 Long term (current) use of insulin
CPT/HCPCS: 99284; 96360; 80053; 82962; 83690; 85025

== ENCOUNTER 2024-09-21 23:51 | Inpatient (IN) | payer MEDICARE, SELFPAY ==
[2024-09-21 17:20] VITALS: BP 141/73
--- NOTE | 2024-09-21 17:21 | ED.GENMED ---
ED Provider Triage
<Francois Cox Jr., PA-C - Last Filed: 09/21/24 17:21>
-
Patient seen by provider in Triage?: Seen in Triage
Attestation: A medical screening examination has been initiated by a qualified medical provider. Based on the assessment performed at this time, it has been determined that an emergent medical condition may exist and the patient has been informed
that further medical evaluation and possible additional diagnostic testing may be needed.
HPI: 73-year-old male presenting via EMS with concerns of ongoing nausea vomiting diarrhea as well as new onset cough. Was here yesterday for similar. Initial labs and chest x-ray ordered. Generally well-appearing here no distress
GENERAL: Alert , in no apparent distress
EYE: No visual abnormalities.
NECK: Trachea midline
ENT: No visible abnormalities.
LUNGS: No acute respiratory distress
NEUROLOGICAL: Alert and oriented
SKIN: Skin intact. No visible changes.
MUSCULOSKELETAL: Moving extremities normally
PSYCH: Normal and appropriate interaction.
This is a medical evaluation conducted in person to initiate diagnostic evaluation and provide initial therapeutics. Please see further documentation by the treating clinician.
History of Present Illness
<Francois Cox Jr., PA-C - Last Filed: 09/21/24 17:21>
General
Chief Complaint: Abdominal Symptoms
Time Seen by Provider: 09/21/24 19:47
<LUCRETIA Hercules - Last Filed: 09/21/24 23:15>
General
Source: patient
Exam Limitations: none
History of Present Illness
History of Present Illness:
This is a 73 year old male that comes in with c/o nausea, vomiting, diarrhea. States that he was here yesterday with the same thing. States that he was sent home. States that he has a cough and was sweaty. State that he is nauseated and vomiting
with diarrhea. States that it is hard for him to get to the [place]. States that he had chills, SOB. Denies any fever, chest pain, abd pain, headache, dizziness, urinary burning.
Past History
<Francois Cox Jr., PA-C - Last Filed: 09/21/24 17:21>
Past History
ED Past Medical History: Arrthythmia (Atrial fib), Asthma, CHF, COPD, HTN, IDDM, IA (Denies) and Other (Sleep apnea uses CPAP, Neuropathy, PNA, )
ED Past Surgical History: Cardiac (Pacemaker for III degree heart blocl), Orthopedic (Right hip surgery, Back surgery, ) and Tonsilectomy
Social History
Tobacco: Non-smoker
Alcohol: None
Personal: Single
Living: with family (Sister)
Family History
Family History: Unable to obtain
<LUCRETIA Hercules - Last Filed: 09/21/24 23:15>
Past History
ED Past Medical History: Asthma and COPD
ED Past Surgical History: Cardiac (Pacemaker for III degree heart block)
Review of Systems
<LUCRETIA Hercules - Last Filed: 09/21/24 23:15>
Review of Systems
All Other Systems: ROS reviewed and negative except as documented in HPI and ROS
Constitutional: Reports chills; Denies fever
EENT: Reports no symptoms
Respiratory: Reports trouble breathing; Denies cough
Cardiac: Denies chest pain
ABD/GI: Reports nausea, vomiting and diarrhea; Denies abdominal pain
: Reports no symptoms; Denies dysuria, frequency or urgency
Musculoskeletal: Reports no symptoms
Skin: Reports no symptoms
Neurological: Reports no symptoms; Denies dizzy or headache
Psychiatric: Reports no symptoms
Phy Exam
<LUCRETIA Hercules - Last Filed: 09/21/24 23:15>
General Physical Exam
General Presentation: no apparent distress
General age: appears stated age
General Skin: warm and dry
General Habitus: elderly
General Mental: alert
General Hydration: dry mucous membranes
ENT Exam
ENT Exam: TM's normal, pharynx normal and neck supple
Eye Exam
Eye Exam: EOMI
Cardiovascular Exam
Cardiovascular Exam: regular rate/rhythm and normal peripheral pulses
Pulmonary Exam
Pulmonary Exam: no respiratory distress, chest non tender, no rhonchi, no wheezing, no cough and other (Fine crackles at right base)
Gastrointestinal Exam
Gastrointestinal Exam: normal bowel sounds, soft, no organomegaly, no pulsatile mass, non distended and tender (Generalized tenderness with palpation)
Musculoskeletal Exam
Musculoskeletal Exam: no edema
Skin Exam
Skin Exam: normal color, warm/dry, no rash and no petechia
Psychiatric Exam
Psychiatric Exam: normal mood/affect
Course
<Francois Cox Jr., CORNELL - Last Filed: 09/21/24 17:21>
Orders/Labs/Results
Orders:
Orders
09/21/24
Chest [CR Chest - 2 Views ] Urgent
Comment:
Reason For Exam: cough
09/21/24 17:20
Urinalysis Reflex To Culture Urgent
09/21/24 19:49
Complete Blood Count/With Diff Urgent
Comprehensive Metabolic Panel Urgent
Lactic Acid Urgent
Lipase Urgent
09/21/24 20:20
0.9% Sodium Chloride 500 ml [Nss] 500 ml IV BOLUS
09/21/24 20:21
CT Abd/pelvis W Iv Cont Urgent
Comment:
Reason For Exam: Generalized abd discomfort
09/21/24 20:29
Ondansetron Injectable [Zofran] 4 mg IV NOW STA
09/21/24 20:31
Ondansetron Injectable [Zofran] 4 mg IV NOW STA
Abnormal Lab Results
09/21/24
19:49
WBC 13.5 H 10^3/uL
(4.8-10.8)
RBC 4.55 L 10^6/uL
(4.70-6.10)
MPV 12.8 H fL
(7.4-10.4)
Abs Immat Gran (auto) 0.2 H 10^3/uL
(0-0.05)
Absolute Neuts (auto) 11.2 H 10^3/uL
(1.4-6.5)
Absolute Monos (auto) 0.7 H 10^3/uL
(0.1-0.6)
Immature Gran % 1.7 H %
(0-0.5)
Neutrophils % 82.7 H %
(42.2-75.2)
Lymphocytes % 8.5 L %
(20.5-51.1)
BUN 21 H mg/dl
(9-20)
Creatinine 1.5 H mg/dL
(0.7-1.3)
Glucose 168 H mg/dl
(70-99)
Lactic Acid 2.4 H mmol/L
(0.7-2.0)
09/21/24 19:49
09/21/24 19:49
Vital Signs
Initial and Last Documented VS:
Initial Vital Signs
Temp Pulse Resp BP Pulse Ox
98.1 F 75 20 141/73 97
09/21/24 17:20 09/21/24 17:20 09/21/24 17:20 09/21/24 17:20 09/21/24 17:20
Last Documented Vital Signs
Temp Pulse Resp BP Pulse Ox
98.1 F 71 24 115/79 92
09/21/24 17:20 09/21/24 22:30 09/21/24 22:30 09/21/24 20:00 09/21/24 22:30
<LUCRETIA Hercules - Last Filed: 09/21/24 23:15>
Orders/Labs/Results
Orders:
Orders
09/21/24
Chest [CR Chest - 2 Views ] Urgent
Comment:
Reason For Exam: cough
09/21/24 17:20
Urinalysis Reflex To Culture Urgent
09/21/24 19:49
Complete Blood Count/With Diff Urgent
Comprehensive Metabolic Panel Urgent
Lactic Acid Urgent
Lipase Urgent
09/21/24 20:20
0.9% Sodium Chloride 500 ml [Nss] 500 ml IV BOLUS
09/21/24 20:21
CT Abd/pelvis W Iv Cont Urgent
Comment:
Reason For Exam: Generalized abd discomfort
09/21/24 20:29
Ondansetron Injectable [Zofran] 4 mg IV NOW STA
09/21/24 20:31
Ondansetron Injectable [Zofran] 4 mg IV NOW STA
Abnormal Lab Results
09/21/24
19:49
WBC 13.5 H 10^3/uL
(4.8-10.8)
RBC 4.55 L 10^6/uL
(4.70-6.10)
MPV 12.8 H fL
(7.4-10.4)
Abs Immat Gran (auto) 0.2 H 10^3/uL
(0-0.05)
Absolute Neuts (auto) 11.2 H 10^3/uL
(1.4-6.5)
Absolute Monos (auto) 0.7 H 10^3/uL
(0.1-0.6)
Immature Gran % 1.7 H %
(0-0.5)
Neutrophils % 82.7 H %
(42.2-75.2)
Lymphocytes % 8.5 L %
(20.5-51.1)
BUN 21 H mg/dl
(9-20)
Creatinine 1.5 H mg/dL
(0.7-1.3)
Glucose 168 H mg/dl
(70-99)
Lactic Acid 2.4 H mmol/L
(0.7-2.0)
09/21/24 19:49
09/21/24 19:49
Leukocytosis, Slight Dehydration. hyperglycemia. lactic acid elevation at 2.4
Vital Signs
Initial and Last Documented VS:
Initial Vital Signs
Temp Pulse Resp BP Pulse Ox
98.1 F 75 20 141/73 97
09/21/24 17:20 09/21/24 17:20 09/21/24 17:20 09/21/24 17:20 09/21/24 17:20
Last Documented Vital Signs
Temp Pulse Resp BP Pulse Ox
98.1 F 71 24 115/79 92
09/21/24 17:20 09/21/24 22:30 09/21/24 22:30 09/21/24 20:00 09/21/24 22:30
<LUCRETIA Hercules - Last Filed: 09/21/24 23:15>
MDM/Problems Addressed
Differential Diagnosis Includes:
Viral GI syndrome. Colitis,
MDM/Problems Addressed:
This is a 73 year old female that comes in with c/o nausea, vomiting and diarrhea. States that he was here yesterday with the same thing. States that he is no better.
Will check labs, CT abd, give IV fluids.
Back into see patient. Explained that his CT is normal along with his cet x-ray. Patient lactic acid is elevated and patient is having trouble caring for himself. Will admit. Hospitalist notified.
Chronic conditions affecting care: DM
Acute Exacerbation and/or Progression of Chronic Illness: DM
<LUCRETIA Hercules - Last Filed: 09/21/24 23:15>
*Radiology
Radiology exam reviewed: preliminary read by ED provider (Chest-low lung volumes, Chest negative for active disease) and radiology read reviewed (CT- No acute inflammatory process within the abdomen or pelvis. No bowel obstruction. No obstructive
uropathy. Stable small right intrarenal calculus without hydronephrosis. Cholelithiasis and sludge. No CT evidence of acute cholecystitis. )
*Unit Operator Interpretation
Rate: normal
Heart Rate: 68
Rhythm: ventricular paced
*Critical Care Note
Total Time (30-74mins, 75-104mins- exclusive of procedures): Not Applicable
ED Attending Note
<Francois Cox Jr., PA-C - Last Filed: 09/21/24 17:21>
-
Portions of this chart may have been created with voice recognition software.� Occasional wrong word or��sound alike� substitutions may have occurred due to the inherent limitations of voice recognition software.
Discharge Plan
Departure
Patient Disposition: Admit
Date of Disposition: 09/21/24
Time of Disposition: 23:14
Admit to: Med/Surg
Presentation/result/management discussed w/ accepting MD/DO: Hospitalist
Patient with high blood pressure during this ER visit?: No
Condition: Good
Covid-19: Not Applicable
Discharge Problem:
Nausea, vomiting and diarrhea, Dehydration
Prescriptions:
No Action
atorvastatin [Lipitor] 10 mg Tablet
10 mg PO HS
escitalopram oxalate [Lexapro] 20 mg Tablet
20 mg PO DAILY
fluticasone propion-salmeterol [Wixela Inhub] 100-50 mcg/dose Blister With Device
1 inh INHALATION R BID
Eliquis 5 mg tablet
5 mg PO BID Qty: 30 0RF
gabapentin 300 mg capsule
300 mg PO BID
pantoprazole [Protonix] 40 mg Tablet,Delayed Release (Dr/Ec)
40 mg PO DAILY
buspirone 10 mg Tablet
10 mg PO BID
insulin lispro 100 unit/mL solution
0 sliding scale dose SC AC
Patient Comments:
04/09/24:141-180=4u,181-220=6u,221-260=8u,261-300=10u,301-350=12u,351-400=14u,401-500=16u
insulin glargine [Lantus Solostar U-100 Insulin] 100 unit/mL (3 mL) Insulin Pen
15 unit SC HS
Refresh Classic (PF) 1.4-0.6 % dropperette
1 drops BOTH EYES QIDPRN PRN (Reason: dry eyes)
Jardiance 10 mg Tablet
10 mg PO DAILY Qty: 0 0RF
polyethylene glycol 3350 [HealthyLax] 17 gram Powder In Packet
17 g PO DAILY Qty: 0 0RF
furosemide 80 mg Tablet
80 mg PO DAILY Qty: 0 0RF
mupirocin 2 % Ointment
1 applic topical DAILY Qty: 2 0RF
metoprolol succinate 25 mg Tablet Extended Release 24 Hr
25 mg PO DAILY Qty: 30 0RF
Referrals:
UNKNOWN - PT DOES,NOT KNOW [Family Provider] -
Interventions
Interventions:
*Risk Screen - Suicide Last Done: 09/21/24 17:20
*General Assessment Last Done: 09/21/24 17:20
*Neglect/Abuse Screening Last Done: 09/21/24 17:20
ED- Fall Risk Assessment Last Done: 09/21/24 19:44
*ED COVID-19 Vaccine History Last Done: 09/21/24 19:44
SP-Enbqvl-Qpcrkmkbrg Assessment Last Done: 09/21/24 19:48
Discharge Date and Time
Print Language: INDIAN
[2024-09-21 19:34] VITALS: BP 108/63
[2024-09-21 19:44] VITALS: BMI 32.5
[2024-09-21 20:00] VITALS: BP 115/79
[2024-09-21 20:03] LABS: % Basophils 0.5 % (0-2); % Eosinophils 1.3 % (0-6); % Immature Granulocytes 1.7 % (0-0.5); % Lymphocytes 8.5 % (20.5-51.1); % Monocytes 5.3 % (1.7-9.3); % Neutrophils 82.7 % (42.2-75.2); Absolute Basophils 0.1 10^3/uL (0-0.2); Absolute Eosinophils 0.2 10^3/uL (0-0.7); Absolute Immature Granulocytes 0.2 10^3/uL (0-0.05); Absolute Lymphocytes 1.2 10^3/uL (1.2-3.4); Absolute Monocytes 0.7 10^3/uL (0.1-0.6); Absolute Neutrophils 11.2 10^3/uL (1.4-6.5); Hematocrit 40.7 % (39.0-52.0); Hemoglobin 13.8 g/dL (13.0-18.0); Mean Corp Hgb Conc. 33.9 g/dL (33.0-37.0); Mean Corpuscular Hgb 30.3 pg (27.0-31.0); Mean Corpuscular Volume 89.5 fL (80.0-94.0); Mean Platelet Volume 12.8 fL (7.4-10.4); Nucleated Red Blood Cells % 0 % (-); Platelet Count 228 10^3/uL (130-400); Red Blood Cell Count 4.55 10^6/uL (4.70-6.10); Red Cell Dist. Width 14.1 % (11.5-14.5); White Blood Cell Count 13.5 10^3/uL (4.8-10.8)
[2024-09-21 20:18] LABS: Lactic Acid 2.4 mmol/L (0.7-2.0)
[2024-09-21 20:20] LABS: ALT (SGPT) 13 U/L (0-50); AST (SGOT) 23 U/L (17-59); Albumin 4.3 g/dl (3.5-5.0); Alkaline Phosphatase 88 U/L (38-126); Blood Urea Nitrogen 21 mg/dl (9-20); Calcium 9.1 mg/dl (8.4-10.2); Carbon Dioxide 30 mmol/L (22-30); Chloride 100 mmol/L (98-107); Estimated Creatinine Clearance 54 ml/min; Glucose 168 mg/dl (70-99); Lipase 98 U/L (23-300); Potassium 4.1 mmol/L (3.5-5.1); Sodium 139 mmol/L (135-145); Total Bilirubin 1.2 mg/dl (0.2-1.3); Total Protein 7.6 g/dl (6.3-8.2); eGFR 48.25
[2024-09-21] MEDS: NSS 500 IV (20:28)
[2024-09-21] MEDS: ZOFRAN 4 MG IV (20:31)
--- NOTE | 2024-09-21 23:13 | HPS.HSE ---
Family Physician
-
Family Physician: NOT KNOW UNKNOWN - PT DOES
Chief Complaint
-
n/v/d
History of Present Illness
73-year-old with past medical history of A-fib, asthma, CHF, hypertension, diabetes, sleep apnea uses BiPAP, neuropathy presented to us with nausea vomiting diarrhea since Friday. Patient stated some abdominal discomfort. Stated poor appetite.
stated chills. Denied fever. Denied headache, dizzy, syncope. Patient complained of short of breath. Denied chest pain. Patient stated some cough. Denied dysuria hematuria.
CT abdomen pelvis with no acute findings. Admitting for further management. Patient received normal saline, Zofran in ER.
Medical History
Past Medical History
Past Medical History: Reports Other
Additional Past Medical History:
EARL
pneumonia
CHF
complete heart block
lung disease
atrial fib
cad
htn
COPD
asthma
pleural effusion
CKD
depression
dysphagia
anxiety
Past Surgical History: Reports Other
Additional Past Surgical History:
laminectomy
hip fracture repair
tonsillectomy
Social History
Tobacco: Non-smoker
Alcohol: None
Drug: None
Personal: Single
Living: Alone
Family History
Family History: Not pertinent
Allergies / Home Medications
Allergies reflects when Allergies were last updated in [facility].
Home Medications with original date entered in [facility]
Allergy/Medication List:
Allergies
Allergy/AdvReac Type Severity Reaction Status Date / Time
No Known Allergies Allergy Verified 09/21/24 17:24
Home Medications
atorvastatin 10 mg tablet (Lipitor) 10 mg PO HS High cholesterol 09/04/22
escitalopram oxalate 20 mg tablet (Lexapro) 20 mg PO DAILY Depression 09/04/22
fluticasone 100 mcg-salmeterol 50 mcg/dose blistr powdr for inhalation (Wixela Inhub) 1 inh inhalation R BID Lung/breathing issues 09/05/22
apixaban 5 mg tablet (Eliquis) 5 mg PO BID Blood thinner #30 tabs 05/06/23
gabapentin 300 mg capsule 300 mg PO BID Pain 06/12/23
buspirone 10 mg tablet 10 mg PO BID Mental Health/Anxiety 11/27/23
pantoprazole 40 mg tablet,delayed release (Protonix) 40 mg PO DAILY Gastrointestinal Issue 11/27/23
insulin glargine 100 unit/mL (3 mL) subcutaneous pen (Lantus Solostar U-100 Insulin) 15 unit SC HS Diabetes 04/09/24
insulin lispro 100 unit/mL subcutaneous solution 0 sliding scale dose SC AC Diabetes 04/09/24
polyvinyl alcohol-povidone (PF) 1.4 %-0.6 % eye drops in a dropperette (Refresh Classic (PF)) 1 drops BOTH EYES QIDPRN PRN dry eyes 04/09/24
empagliflozin 10 mg tablet (Jardiance) 10 mg PO DAILY #0 tabs 06/03/24
furosemide 80 mg tablet 80 mg PO DAILY #0 tabs 06/03/24
polyethylene glycol 3350 17 gram oral powder packet (HealthyLax) 17 g PO DAILY #0 ea 06/03/24
metoprolol succinate 25 mg tablet,extended release 24 hr 25 mg PO DAILY #30 tabs 08/03/24
mupirocin 2 % topical ointment 1 applic topical DAILY Infection #2 tubes 08/03/24
Review of Systems
-
Constitutional: Reports No Symptoms
EENT: Reports No Symptoms
Respiratory: Reports Cough and Trouble Breathing
Cardiac: Reports No Symptoms
Abdomen/GI: Reports Abdominal Pain, Nausea, Vomiting and Diarrhea
: Reports No Symptoms
Musculoskeletal: Reports No Symptoms
Skin: Reports No Symptoms
Neurological: Reports No Symptoms
Endocrine: Reports No Symptoms
Hematologic/Lymphatic: Reports No Symptoms
Psych: Reports No Symptoms
Physical Exam
Vital Signs
Vital Signs
Temp Pulse Resp BP Pulse Ox
98.1 F 71 24 115/79 92
09/21/24 17:20 09/21/24 22:30 09/21/24 22:30 09/21/24 20:00 09/21/24 22:30
Physical Exam
General: Well Developed, Well Nourished and No Apparent Distress
HEENT: NormoCephalic, Moist mucous membranes and Atraumatic
Respiratory: Clear
Cardiac: S1/S2 and Regular Rhythm; No Murmur or Rub
GI: Soft, Non Tender, Non Distended and Normal Bowel Sounds; No Organomegaly
Rectal: Deferred by Provider
Musculoskeletal: No Clubbing, No Cyanosis and Other (Bilateral lower extremity edema)
Skin: No Rash
Neuro: AO x 3 and Nonfocal/grossly intact
Psych: Calm
Laboratory Results
-
09/21/24 19:49
09/21/24 19:49
Laboratory Results
Lactic Acid 2.4 mmol/L (0.7-2.0) H 09/21/24 19:49
Total Bilirubin 1.2 mg/dl (0.2-1.3) 09/21/24 19:49
AST 23 U/L (17-59) 09/21/24 19:49
ALT 13 U/L (0-50) 09/21/24 19:49
Alkaline Phosphatase 88 U/L (38-126) 09/21/24 19:49
Lipase 98 U/L (23-300) 09/21/24 19:49
Data Reviewed
-
CT Scan: Report Reviewed by me
Lab Data: Labs Reviewed by me
Impression/Plan
-
#n/v/d likely gastroenteritis
-wbc 13.5, lactic 2.4
-Ct abdomen pelvis with the impression of o acute inflammatory process within the abdomen or pelvis.No bowel obstruction.No obstructive uropathy. Stable small right intrarenal calculus without hydronephrosis.Cholelithiasis and sludge. No CT evidence
of acute cholecystitis.
-Will obtain stool for cultures norovirus,
-Keep n.p.o.
-Continue to monitor WBCs
-Trend lactic
#cough/sob likely viral
-chest x ray with Chronic prominent asymmetric elevation of the right diaphragm.No evidence of pneumonia or congestive heart failure. No pneumothorax or pleural effusion.Finalized
-ctm
#CKD stage 3b
-cr 1.5
-ctm
#History of CHF
-Bilateral lower extremities edema today.
-Hold Lasix
-Strict LYNDON, daily weight
# Hyperlipidemia
-Statin continued
# Anxiety
-Lexapro, buspirone continued
# History of COPD/asthma
-Patient noted in acute exacerbation
-Fluticasone continued
#A-fib
- Continue Eliquis
-Metoprolol continued with hold parameters
# Type 2 DM/neuropathy
- Continue Lantus/ Sliding Scale Insulins
- Accucheck
-Gabapentin continued
-Jardiance held
# DVT prophylaxis
-Eliquis
# Sleep apnea
-BiPAP at bedtime
CODE STATus
-Full code
[2024-09-21 23:39] VITALS: BP 160/88
--- NOTE | 2024-09-21 23:43 | W.PN.UPDATE ---
Update Note
Progress Note Update
This is an addendum to the H&P written by Tara Null on 09/21/2024. Patient seen and examined independently with [facility].
73-year-old male past medical history of permanent atrial fibrillation on Eliquis, HFpEF, hypertension, CKD 3, restrictive lung disease, obstructive sleep apnea, diabetes, presenting with nausea and vomiting and diarrhea over the past few days after
eating lasagna at a supermarket. Also with new dry cough and acute on chronic shortness of breath intermittently.
Labs show leukocytosis. Renal function at baseline. Lactic of 2.4. CT abdomen pelvis shows no acute process within the abdomen or pelvis. Chest x-ray appears to show low lung volumes/atelectasis. Report pending. COVID and influenza pending.
Presentation consistent with acute viral gastroenteritis. Check norovirus, stool culture. NPO. IV fluids given but hold further fluids due to shortness of breath and chronic heart failure.
Shortness of breath possibly secondary to viral URI. Not overtly in heart failure. Check BNP. Hold Lasix for now due to significant GI losses. Reduce insulin.
[2024-09-21 23:47] LABS: Lactic Acid 1.3 mmol/L (0.7-2.0)
[2024-09-22] VITALS (12 sets, daily range): BP systolic 110–139; BP diastolic 50–76; PULSE 2–84; BMI 30.8
[2024-09-22 00:03] LABS: COVID-19 Antigen Negative (Negative)
[2024-09-22 00:23] LABS: NT-proBNP 680 pg/ml
[2024-09-22] MEDS: TYLENOL 650 MG PO ×2 (02:52→21:40)
[2024-09-22 05:50] LABS: Hematocrit 37.5 % (39.0-52.0); Hemoglobin 12.5 g/dL (13.0-18.0); Mean Corp Hgb Conc. 33.3 g/dL (33.0-37.0); Mean Corpuscular Hgb 30.8 pg (27.0-31.0); Mean Corpuscular Volume 92.4 fL (80.0-94.0); Mean Platelet Volume 12.8 fL (7.4-10.4); Platelet Count 176 10^3/uL (130-400); Red Blood Cell Count 4.06 10^6/uL (4.70-6.10); Red Cell Dist. Width 14.1 % (11.5-14.5); White Blood Cell Count 7.5 10^3/uL (4.8-10.8)
[2024-09-22 05:54] LABS: Blood Urea Nitrogen 23 mg/dl (9-20); Calcium 8.7 mg/dl (8.4-10.2); Carbon Dioxide 29 mmol/L (22-30); Chloride 101 mmol/L (98-107); Estimated Creatinine Clearance 51 ml/min; Glucose 159 mg/dl (70-99); Potassium 3.7 mmol/L (3.5-5.1); Sodium 139 mmol/L (135-145); eGFR 44.65
[2024-09-22] MEDS: ADVAIR HFA 45/21 MCG INHALER 2 PUFF INH ×2 (07:07→19:32)
--- NOTE | 2024-09-22 07:24 | W.PN.HOSP.TC ---
Today's Communication/Plan
-
Symptoms somewhat better
Trial clear liquids diet
AM labs
Assessment / Plan
Assessment / Plan
Physical Exam
General: Not in acute distress
HEENT: Normocephalic
Respiratory: Clear to Auscultation Bilaterally
Cardiac: S1/S2 and Regular Rhythm
GI: Soft, Non Tender, Non Distended and Normal Bowel Sounds
Musculoskeletal: No Cyanosis and Other (Bilateral lower extremity edema)
Skin: Warm. Dry.
Neuro: AAO x 3 and Nonfocal/grossly intact
Psych: Calm
Assessment/Plan
73-year-old male past medical history of permanent atrial fibrillation on Eliquis, HFpEF, hypertension, CKD 3, restrictive lung disease, obstructive sleep apnea, diabetes, presenting with nausea and vomiting and diarrhea over the past few days after
eating lasagna at a supermarket. Also with new dry cough and acute on chronic shortness of breath intermittently.
Labs show leukocytosis. Renal function at baseline. Lactic of 2.4. CT abdomen pelvis shows no acute process within the abdomen or pelvis. Chest x-ray appears to show low lung volumes/atelectasis. Report pending. COVID and influenza pending.
Presentation consistent with acute viral gastroenteritis. Check norovirus, stool culture. NPO. IV fluids given but hold further fluids due to shortness of breath and chronic heart failure.
Shortness of breath possibly secondary to viral URI. Not overtly in heart failure. Check BNP. Hold Lasix for now due to significant GI losses. Reduce insulin.
#Nausea/Vomiting/Diarrhea likely acute gastroenteritis
#Fever 100.7 F on 09/22/24 morning
#Leukocytosis - RESOLVED
#Lactic Acidosis - RESOLVED
-WBC improving
-CT Abdomen Pelvis with no acute process, showed cholelithiasis (and sludge) but no cholecystitis
-Obtain stool studies including Norovirus and stool cultures when able
-Trial Clear Liquids Diet today
-Patient reports some cough, but CXR with no pneumonia or evidence of CHF
-Influenza and COVID negative
-Bilateral lower extremities with chronic, mild erythema near the ankles, patient says they have been present for a long time, no convincing evidence of cellulitis
-Continue to monitor patient clinically of antibiotics especially with resolution of lactic acidosis and normalization of the WBC
-If patient needs IV fluids, then can give small 250 cc boluses at a time given history of CHF
#Cough/SOB likely viral
-Suspected bronchitis or aspiration from vomiting. CXR with no acute findings except chronic prominent asymmetric elevation of the right diaphragm
-Required 2 liters of oxygen in the ED
-proBNP 680 which is far below the age-related cutoff to rule in CHF exacerbation for age (even though patient is obese, which can lower the proBNP)
#CKD stage 3b
-Creatinine ~1.5 (at baseline)
-Continue to monitor BMP
#Chronic HFpEF: recovered EF
-Bilateral lower extremities edema today.
-Hold Lasix given episodes of vomiting and diarrhea for the past at least 2 to 3 days
-Strict I' and O's, daily weights
#Stable small right intrarenal calculus without hydronephrosis on CT Imaging
#Cholelithiasis and sludge on CT Imaging
#Chronic prominent asymmetric elevation of the right diaphragm on Chest X-Ray
#History of Left Leg pain due to minimally Displaced Proximal Fibular Shaft Fracture
#Hyperlipidemia
-Continue statin
#Anxiety
-Lexapro, buspirone continued
#History of COPD/asthma
-Patient noted in acute exacerbation
-Fluticasone continued
#Permanent Atrial Fibrillation status post PPM
-Continue Eliquis
-Metoprolol continued with hold parameters
#Coronary Artery Disease
#Essential Hypertension
# Type 2 DM/neuropathy
- Continue Lantus/ Sliding Scale Insulins
- Accucheck
-Gabapentin continued
-Jardiance held
#History of Kidney Stone
#Obesity due to excess calories
#Sleep apnea
-BiPAP at bedtime
DVT Prophylaxis: Eliquis
CODE STATUS: Full code
Patient's contact: his sister Kyra ([phone])
Anticipated Discharge: 24 - 48 hours
Subjective/Interval History
-
Date of Service: September 22, 2024
Patient was seen and examined. He reported he is still feeling weak, not much change from previous, and no abdominal pain.
Objective Data
-
Labs:
Laboratory Results
09/21/24 09/22/24
19:49 05:26
WBC 13.5 H 7.5
Hgb 13.8 12.5 L
Hct 40.7 37.5 L
Plt Count 228 176 D
Sodium 139 139
Potassium 4.1 3.7
Chloride 100 101
Carbon Dioxide 30 29
BUN 21 H 23 H
Creatinine 1.5 H 1.6 H
Glucose 168 H 159 H
Calcium 9.1 8.7
Total Bilirubin 1.2
AST 23
ALT 13
Alkaline Phosphatase 88
Vital Signs:
Vital Signs
Temp Pulse Resp BP Pulse Ox
100.7 F H 72 17 136/64 97
09/22/24 02:49 09/22/24 07:13 09/22/24 07:13 09/22/24 02:00 09/22/24 07:13
[2024-09-22 07:56] LABS: Glucose - Point of Care 150 mg/dl (70-99)
[2024-09-22 08:27] LABS: Glycohemoglobin (HgbA1c) 5.8 % (4.0-5.6)
--- NOTE | 2024-09-22 08:34 | VNURNOTE ---
Chart reviewed. [facility], [facility]. Will continue to follow hospital course and DC plans.
[2024-09-22] MEDS: BUSPAR 10 MG PO ×2 (11:50→20:26)
[2024-09-22] MEDS: ELIQUIS 5 MG PO ×2 (11:50→20:26)
[2024-09-22] MEDS: LEXAPRO 20 MG PO (11:51)
[2024-09-22] MEDS: PROTONIX 40 MG PO (11:51)
[2024-09-22] MEDS: NOVOLOG FLEXPEN-LOW RESISTANCE SC ×2 (11:52→16:38)
[2024-09-22] MEDS: NEURONTIN 300 MG PO ×2 (11:52→20:26)
[2024-09-22] MEDS: TOPROL XL 25 MG PO (11:55)
[2024-09-22 12:28] LABS: Glucose - Point of Care 155 mg/dl (70-99)
[2024-09-22] MEDS: NOVOLOG FLEXPEN-LOW RESISTANCE 1 UNITS SC (14:09)
--- NOTE | 2024-09-22 15:22 | CM ---
CM reviewed medical records. CM was updated by Chasidy Powell regarding patient's home condition. Patient is well known to this CM from prior admissions.
[facility] has caregivers for a few time during the week. Field RN stated that she always finds patient incontinent and laying in bed. Patient is at times unable to get food. HIs sister is available as needed for assistance, but
only visits occasionally.
Sister expressed to [facility] she feels that patient needs STR. CM will await PT recommendations.
--- NOTE | 2024-09-22 15:22 | VNURNOTE ---
Received updated info from primary VN Kaley. Informed that VN very often finds at home laying in own excrement, not able to get out of bed, and not taking meds or getting food. Family and patient initially were very resistant to [employer] help.
Patient getting help of an aide 2x/week - not sufficient for his needs. Per VN, sister not consistently helping with care or meds. Patient living alone in apt. Would benefit w/placement. Updates given to NILDA Sommer.
[2024-09-22 16:29] LABS: Glucose - Point of Care 135 mg/dl (70-99)
[2024-09-22 21:26] LABS: Glucose - Point of Care 151 mg/dl (70-99)
[2024-09-22] MEDS: LIPITOR 10 MG PO (21:31)
[2024-09-22] MEDS: LANTUS 0.07 UNITS SC (21:33)
[2024-09-23] VITALS (9 sets, daily range): BP systolic 99–132; BP diastolic 51–67; PULSE 2–77; O2SAT 96; BMI 32.5
[2024-09-23] MEDS: ADVAIR HFA 45/21 MCG INHALER 2 PUFF INH ×2 (07:31→19:23)
[2024-09-23 07:54] LABS: Glucose - Point of Care 122 mg/dl (70-99)
[2024-09-23] MEDS: NOVOLOG FLEXPEN-LOW RESISTANCE SC (07:55)
[2024-09-23] MEDS: TOPROL XL 25 MG PO (08:45)
[2024-09-23] MEDS: LEXAPRO 20 MG PO (08:46)
[2024-09-23] MEDS: NEURONTIN 300 MG PO ×2 (08:46→20:37)
[2024-09-23] MEDS: PROTONIX 40 MG PO (08:46)
[2024-09-23] MEDS: ELIQUIS 5 MG PO ×2 (08:46→20:37)
[2024-09-23] MEDS: BUSPAR 10 MG PO ×2 (08:46→20:37)
--- NOTE | 2024-09-23 11:37 | RESPNOTE ---
Attempted to complete home O2 assessment with pt. Pt would like 'to eat before he walks'. Pts food tray arrived when present. Will reattempt home O2 assessment when pt is done eating.
[2024-09-23 11:49] LABS: Glucose - Point of Care 162 mg/dl (70-99)
[2024-09-23] MEDS: NOVOLOG FLEXPEN-LOW RESISTANCE 1 UNITS SC ×2 (11:53→15:04)
--- NOTE | 2024-09-23 12:24 | W.PN.HOSP.TC ---
Today's Communication/Plan
-
Advance diet -- GI symptoms improving
Still on oxygen -- no new symptoms -- patient reports on and off SOB for many months, check echo
PT/OT, probably will need SNF placement
Assessment / Plan
Assessment / Plan
Physical Exam
General: Not in acute distress
HEENT: Normocephalic
Respiratory: Clear to Auscultation Bilaterally
Cardiac: S1/S2 and Regular Rhythm
GI: Soft, Non Tender, Non Distended and Normal Bowel Sounds
Musculoskeletal: No Cyanosis and Other (Bilateral lower extremity edema)
Skin: Warm. Dry.
Neuro: AAO x 3 and Nonfocal/grossly intact. Bilateral lower extremity strength and sensation intact.
Psych: Calm
Assessment/Plan
73-year-old male past medical history of permanent atrial fibrillation on Eliquis, HFpEF, hypertension, CKD 3, restrictive lung disease, obstructive sleep apnea, diabetes, presenting with nausea and vomiting and diarrhea over the past few days after
eating lasagna at a supermarket. Also with new dry cough and acute on chronic shortness of breath intermittently.
Labs show leukocytosis. Renal function at baseline. Initial lactic acid of 2.4. CT abdomen pelvis showed no acute process within the abdomen or pelvis. Chest x-ray appears to show low lung volumes/atelectasis.
Presentation consistent with acute viral gastroenteritis. Check norovirus, stool culture. NPO. IV fluids given but hold further fluids due to shortness of breath and chronic heart failure.
Shortness of breath possibly secondary to viral URI. Not overtly in heart failure. Check BNP. Hold Lasix for now due to significant GI losses. Reduce insulin.
#Nausea/Vomiting/Diarrhea likely acute gastroenteritis - RESOLVED
#Fever 100.7 F on 09/22/24 morning - RESOLVED
#Leukocytosis - RESOLVED
#Lactic Acidosis - RESOLVED
-WBC improving as of yesterday, today's labs still pending
-CT Abdomen Pelvis with no acute process, showed cholelithiasis (and sludge) but no cholecystitis
-Obtain stool studies including Norovirus and stool cultures if patient has diarrhea again
-Advance diet to CHF diet
-Patient reports some cough, but CXR with no pneumonia or evidence of CHF
-Influenza and COVID negative
-Bilateral lower extremities with chronic, mild erythema near the ankles, patient says they have been present for a long time, no convincing evidence of cellulitis
-Continue to monitor patient clinically of antibiotics especially with resolution of lactic acidosis and normalization of the WBC
-If patient needs IV fluids, then can give small 250 cc boluses at a time given history of CHF
#Cough/SOB likely viral
-Suspected bronchitis or aspiration from vomiting. CXR with no acute findings except chronic prominent asymmetric elevation of the right diaphragm
-Required 2 liters of oxygen in the ED, still on oxygen
-proBNP 680 which is far below the age-related cutoff to rule in CHF exacerbation for age (even though patient is obese, which can lower the proBNP)
-Check Echo and EKG
-Patient sees Dr. Rivas (pulmonary) outpatient -- no need for pulmonary consult at this time, but will still consider discussing case with Dr. Rivas
#CKD stage 3b
-Creatinine ~1.5 (at baseline)
-Continue to monitor BMP
#Chronic HFpEF: recovered EF
-Bilateral lower extremities edema today.
-Hold Lasix given episodes of vomiting and diarrhea for the past at least 2 to 3 days
-Strict I's and O's, daily weights
#Stable small right intrarenal calculus without hydronephrosis on CT Imaging
#Cholelithiasis and sludge on CT Imaging
#Chronic prominent asymmetric elevation of the right diaphragm on Chest X-Ray
#History of Left Leg pain due to minimally Displaced Proximal Fibular Shaft Fracture
#Hyperlipidemia
-Continue statin
#Anxiety
-Lexapro, buspirone continued
#History of COPD/asthma
-Patient noted in acute exacerbation
-Fluticasone continued
#Permanent Atrial Fibrillation status post PPM
-Continue Eliquis
-Metoprolol continued with hold parameters
#Coronary Artery Disease
#Essential Hypertension
# Type 2 DM/neuropathy
-Continue Lantus/ Sliding Scale Insulins
-Accucheck
-Gabapentin continued
-Jardiance held
#History of Kidney Stone
#Obesity due to excess calories
#Sleep apnea
-BiPAP at bedtime
DVT Prophylaxis: Eliquis
CODE STATUS: Full code
Patient's contact: his sister Kyra ([phone])
Disposition: On 09/23/24, I discussed patient's case with patient's nurse, who mentioned that patient has generalized weakness and chronic fecal and urinary incontinence, patient will likely need placement.
Anticipated Discharge: > 48 hours
Subjective/Interval History
-
Date of Service: September 23, 2024
Patient was seen and examined. He reported improvement in his diarrhea and abdominal pain, denied chest pain, SOB or any other complaints.
Objective Data
-
Vital Signs:
Vital Signs
Temp Pulse Resp BP Pulse Ox
97.8 F 63 18 99/62 96
09/23/24 11:45 09/23/24 11:45 09/23/24 11:45 09/23/24 11:45 09/23/24 11:45
I&O
09/22/24 09/23/24 09/24/24
06:59 06:59 06:59
Intake Total 1620 / 1620
Balance 1620 / 1620
[2024-09-23 14:01] LABS: % Basophils 0.8 % (0-2); % Eosinophils 8.3 % (0-6); % Immature Granulocytes 0.6 % (0-0.5); % Lymphocytes 20.8 % (20.5-51.1); % Monocytes 8.5 % (1.7-9.3); Absolute Eosinophils 0.4 10^3/uL (0-0.7); Absolute Monocytes 0.4 10^3/uL (0.1-0.6); Absolute Neutrophils 2.9 10^3/uL (1.4-6.5); Hematocrit 33.6 % (39.0-52.0); Hemoglobin 11.3 g/dL (13.0-18.0); Mean Corp Hgb Conc. 33.6 g/dL (33.0-37.0); Mean Corpuscular Hgb 30.4 pg (27.0-31.0); Mean Corpuscular Volume 90.3 fL (80.0-94.0); Mean Platelet Volume 12.5 fL (7.4-10.4); Nucleated Red Blood Cells % 0 % (-); Platelet Count 148 10^3/uL (130-400); Red Blood Cell Count 3.72 10^6/uL (4.70-6.10); Red Cell Dist. Width 14.6 % (11.5-14.5); White Blood Cell Count 4.7 10^3/uL (4.8-10.8)
[2024-09-23 14:16] LABS: Blood Urea Nitrogen 19 mg/dl (9-20); Calcium 8.1 mg/dl (8.4-10.2); Carbon Dioxide 29 mmol/L (22-30); Chloride 100 mmol/L (98-107); Estimated Creatinine Clearance 54 ml/min; Glucose 157 mg/dl (70-99); Magnesium 1.4 mg/dl (1.6-2.3); Potassium 3.5 mmol/L (3.5-5.1); Sodium 137 mmol/L (135-145); eGFR 48.25
[2024-09-23 15:04] LABS: Glucose - Point of Care 170 mg/dl (70-99)
[2024-09-23 21:25] LABS: Glucose - Point of Care 157 mg/dl (70-99)
[2024-09-23] MEDS: LIPITOR 10 MG PO (22:14)
[2024-09-23] MEDS: LANTUS 0.07 UNITS SC (22:15)
[2024-09-23] MEDS: MAG-TAB SR 84 MG PO (23:25)
[2024-09-23] MEDS: KCL 40 MEQ PO (23:25)
[2024-09-24] VITALS (9 sets, daily range): BP systolic 96–141; BP diastolic 53–69; PULSE 2–69; O2SAT 96; BMI 33.0
[2024-09-24] MEDS: ADVAIR HFA 45/21 MCG INHALER 2 PUFF INH ×2 (07:28→20:03)
[2024-09-24 08:05] LABS: Glucose - Point of Care 138 mg/dl (70-99)
[2024-09-24] MEDS: ELIQUIS 5 MG PO ×2 (08:06→21:42)
[2024-09-24] MEDS: PROTONIX 40 MG PO (08:07)
[2024-09-24] MEDS: BUSPAR 10 MG PO ×2 (08:08→21:42)
[2024-09-24] MEDS: LEXAPRO 20 MG PO (08:08)
[2024-09-24] MEDS: NEURONTIN 300 MG PO ×2 (08:08→21:42)
[2024-09-24] MEDS: NOVOLOG FLEXPEN-LOW RESISTANCE SC ×2 (08:08→16:53)
[2024-09-24] MEDS: TOPROL XL PO (08:08)
[2024-09-24 08:58] LABS: % Basophils 0.9 % (0-2); % Eosinophils 5.5 % (0-6); % Immature Granulocytes 0.9 % (0-0.5); % Lymphocytes 31.8 % (20.5-51.1); % Monocytes 9.1 % (1.7-9.3); % Neutrophils 51.8 % (42.2-75.2); Absolute Basophils 0.1 10^3/uL (0-0.2); Absolute Eosinophils 0.3 10^3/uL (0-0.7); Absolute Immature Granulocytes 0.1 10^3/uL (0-0.05); Absolute Lymphocytes 1.9 10^3/uL (1.2-3.4); Absolute Monocytes 0.5 10^3/uL (0.1-0.6); Hematocrit 33.8 % (39.0-52.0); Hemoglobin 11.4 g/dL (13.0-18.0); Mean Corp Hgb Conc. 33.7 g/dL (33.0-37.0); Mean Corpuscular Hgb 30.2 pg (27.0-31.0); Mean Corpuscular Volume 89.7 fL (80.0-94.0); Mean Platelet Volume 12.5 fL (7.4-10.4); Nucleated Red Blood Cells % 0 % (-); Platelet Count 119 10^3/uL (130-400); Red Blood Cell Count 3.77 10^6/uL (4.70-6.10); Red Cell Dist. Width 14.3 % (11.5-14.5); White Blood Cell Count 5.8 10^3/uL (4.8-10.8)
[2024-09-24 09:16] LABS: Blood Urea Nitrogen 20 mg/dl (9-20); Calcium 7.9 mg/dl (8.4-10.2); Carbon Dioxide 29 mmol/L (22-30); Chloride 101 mmol/L (98-107); Estimated Creatinine Clearance 63 ml/min; Glucose 128 mg/dl (70-99); Magnesium 1.5 mg/dl (1.6-2.3); Potassium 3.8 mmol/L (3.5-5.1); Sodium 136 mmol/L (135-145); eGFR 57.29
[2024-09-24 11:28] LABS: Glucose - Point of Care 189 mg/dl (70-99)
[2024-09-24] MEDS: MAGNESIUM OXIDE 500 MG PO (11:54)
[2024-09-24] MEDS: NOVOLOG FLEXPEN-LOW RESISTANCE 1 UNITS SC (12:54)
--- NOTE | 2024-09-24 13:18 | W.PN.HOSP.TC ---
Today's Communication/Plan
-
Patient says he cannot go home until tomorrow at the earliest as he needs someone to pick him up, but otherwise is doing well
Will need to check AM labs and optimize electrolytes
Assessment / Plan
Assessment / Plan
Physical Exam
General: Not in acute distress
HEENT: Normocephalic
Respiratory: Clear to Auscultation Bilaterally
Cardiac: S1/S2 and Regular Rhythm
GI: Soft, Non Tender, Non Distended and Normal Bowel Sounds
Musculoskeletal: No Cyanosis and Other (Bilateral lower extremity edema)
Skin: Warm. Dry.
Neuro: AAO x 3 and Nonfocal/grossly intact. Bilateral lower extremity strength and sensation intact.
Psych: Calm
Assessment/Plan
73-year-old male past medical history of permanent atrial fibrillation on Eliquis, HFpEF, hypertension, CKD 3, restrictive lung disease, obstructive sleep apnea, diabetes, presenting with nausea and vomiting and diarrhea over the past few days after
eating lasagna at a supermarket. Also with new dry cough and acute on chronic shortness of breath intermittently. Labs initially showed leukocytosis. Renal function at baseline. Initial lactic acid of 2.4. CT abdomen pelvis showed no acute process
within the abdomen or pelvis. Chest x-ray appeared to show low lung volumes/atelectasis. Presentation consistent with acute viral gastroenteritis. IV fluids given but hold further fluids due to shortness of breath and chronic heart failure.
#Nausea/Vomiting/Diarrhea Secondary to Norovirus - RESOLVED
#Norovirus
#Fever 100.7 F on 09/22/24 morning - RESOLVED
#Leukocytosis - RESOLVED
#Lactic Acidosis - RESOLVED
-CT Abdomen Pelvis with no acute process, showed cholelithiasis (and sludge) but no cholecystitis
-Patient is positive for Norovirus, although his GI symptoms have improved
-Cholesterol Lowering Diet
-Patient reports some cough, but CXR with no pneumonia or evidence of CHF
-Influenza and COVID negative
-Bilateral lower extremities with chronic, mild erythema near the ankles, patient says they have been present for a long time, no convincing evidence of cellulitis
-Continue to monitor patient clinically of antibiotics especially with resolution of lactic acidosis and normalization of the WBC
-If patient needs IV fluids, then can give small 250 cc boluses at a time given history of CHF
#Cough/SOB likely viral
-Now on room air
-Suspected bronchitis or aspiration from vomiting. CXR with no acute findings except chronic prominent asymmetric elevation of the right diaphragm
-Required 2 liters of oxygen in the ED, now off oxygen
-proBNP 680 which is far below the age-related cutoff to rule in CHF exacerbation for age (even though patient is obese, which can lower the proBNP)
-Echocardiogram with LVEF 55%, possible basal inferior wall hypokinesis. Wall motion is also consistent with conduction abnormality -- follow-up with cardiology outpatient
-Patient sees Dr. Rivas (pulmonary) outpatient -- no need for pulmonary consult at this time -- follow-up with pulmonary outpatient
-Home oxygen assessment on discharge
#Prolonged QTc
#Left Upper Extremity Swelling
-Could be swelling from IV access
-Check LUE ultrasound
#Borderline Low Magnesium
#Hypocalcemia
-Replaced, continue to monitor BMP
-Replace Calcium
#CKD stage 3b
-Creatinine ~1.5 (at baseline)
-Continue to monitor BMP
#Chronic HFpEF: recovered EF
-Bilateral lower extremities edema today.
-Hold Lasix given episodes of vomiting and diarrhea for the past at least 2 to 3 days
-Strict I's and O's, daily weights
#Stable small right intrarenal calculus without hydronephrosis on CT Imaging
#Cholelithiasis and sludge on CT Imaging
#Chronic prominent asymmetric elevation of the right diaphragm on Chest X-Ray
#History of Left Leg pain due to minimally Displaced Proximal Fibular Shaft Fracture
#Hyperlipidemia
-Continue statin
#Anxiety
-Lexapro, buspirone continued
#History of COPD/asthma
-Patient noted in acute exacerbation
-Fluticasone continued
#Permanent Atrial Fibrillation status post PPM
-Continue Eliquis
-Metoprolol continued with hold parameters
#Coronary Artery Disease
#Essential Hypertension
# Type 2 DM/neuropathy
-Continue Lantus/ Sliding Scale Insulins
-Accucheck
-Gabapentin continued
-Jardiance held
#History of Kidney Stone
#Obesity due to excess calories
#Sleep apnea
-BiPAP at bedtime
DVT Prophylaxis: Eliquis
CODE STATUS: Full code
Patient's contact: his sister Kyra ([phone])
Disposition: On 09/23/24, I discussed patient's case with patient's nurse, who mentioned that patient has generalized weakness and chronic fecal and urinary incontinence, patient will likely need placement.
Anticipated Discharge: 24 - 48 hours
Subjective/Interval History
-
Date of Service: September 24, 2024
Patient was seen and examined. He denied any abdominal pain, diarrhea, and was eating lunch fine.
Objective Data
-
Labs:
Laboratory Results
09/24/24
08:22
WBC 5.8
Hgb 11.4 L
Hct 33.8 L
Plt Count 119 L
Sodium 136
Potassium 3.8
Chloride 101
Carbon Dioxide 29
BUN 20
Creatinine 1.3
Glucose 128 H
Calcium 7.9 L
Vital Signs:
Vital Signs
Temp Pulse Resp BP Pulse Ox
98.0 F 62 17 117/69 96
09/24/24 10:55 09/24/24 10:55 09/24/24 10:55 09/24/24 10:55 09/24/24 10:55
I&O
09/23/24 09/24/24 09/25/24
06:59 06:59 06:59
Intake Total 1620 / 1620 1200 / 1200
Balance 1620 / 1620 1200 / 1200
--- NOTE | 2024-09-24 16:26 | CM ---
Upon review of PT notes, PT indicating rehab however patient not agreeable and would like to return home when cleared. Will f/u to determine if he is agreeable to [facility].
Plan: Case management will continue to follow and assist with discharge planning. Home tentative with [facility].
--- NOTE | 2024-09-24 16:35 | PTCARENOTE ---
Pt positive for norovirus provider aware.
[2024-09-24 16:42] LABS: Glucose - Point of Care 122 mg/dl (70-99)
[2024-09-24] MEDS: OSCAL CAL 500 500 MG PO (21:42)
[2024-09-24] MEDS: LIPITOR 10 MG PO (21:45)
[2024-09-24 21:46] LABS: Glucose - Point of Care 147 mg/dl (70-99)
[2024-09-24] MEDS: LANTUS 0.07 UNITS SC (21:52)
[2024-09-25 02:21] VITALS: PULSE 2
[2024-09-25 03:59] VITALS: BP 142/62
[2024-09-25 06:00] VITALS: BMI 32.9
[2024-09-25 07:16] LABS: Glucose - Point of Care 112 mg/dl (70-99)
[2024-09-25] MEDS: ADVAIR HFA 45/21 MCG INHALER 2 PUFF INH ×2 (07:31→19:29)
--- NOTE | 2024-09-25 08:21 | W.PN.HOSP.TC ---
Today's Communication/Plan
-
Diarrhea again, and patient saying he feels terrible and cannot go home yet, complex social situation at home and his sister not available to take care of him. He declined SNF although SNF was recommended.
Supplement with IV Magnesium
Assessment / Plan
Assessment / Plan
Physical Exam
General: Not in acute distress
HEENT: Normocephalic
Respiratory: Clear to Auscultation Bilaterally
Cardiac: S1/S2 and Regular Rhythm
GI: Soft, Non Tender, Non Distended and Normal Bowel Sounds
Musculoskeletal: No Cyanosis and Other (Bilateral lower extremity edema)
Skin: Warm. Dry.
Neuro: AAO x 3 and Nonfocal/grossly intact. Bilateral lower extremity strength and sensation intact.
Psych: Calm
Assessment/Plan
73-year-old male past medical history of permanent atrial fibrillation on Eliquis, HFpEF, hypertension, CKD 3, restrictive lung disease, obstructive sleep apnea, diabetes, presenting with nausea and vomiting and diarrhea over the past few days after
eating lasagna at a supermarket. Also with new dry cough and acute on chronic shortness of breath intermittently. Labs initially showed leukocytosis. Renal function at baseline. Initial lactic acid of 2.4. CT abdomen pelvis showed no acute process
within the abdomen or pelvis. Chest x-ray appeared to show low lung volumes/atelectasis. Presentation consistent with acute viral gastroenteritis. IV fluids given but hold further fluids due to shortness of breath and chronic heart failure.
#Nausea/Vomiting/Diarrhea Secondary to Norovirus
#Norovirus
#Fever 100.7 F on 09/22/24 morning - RESOLVED
#Leukocytosis - RESOLVED
#Lactic Acidosis - RESOLVED
-CT Abdomen Pelvis with no acute process, showed cholelithiasis (and sludge) but no cholecystitis
-Patient is positive for Norovirus, although his GI symptoms have improved
-Cholesterol Lowering Diet
-Patient reports some cough, but CXR with no pneumonia or evidence of CHF
-Influenza and COVID negative
-Bilateral lower extremities with chronic, mild erythema near the ankles, patient says they have been present for a long time, no convincing evidence of cellulitis
-Continue to monitor patient clinically of antibiotics especially with resolution of lactic acidosis and normalization of the WBC
-If patient needs IV fluids, then can give small 250 cc boluses at a time given history of CHF
-Diarrhea returned on 09/25/24 -- possibly from Magnesium oxide -- hold Magnesium oxide for now and replace any low magnesium with IV -- if MgO needed on discharge, can do smaller doses spread throughout day with food
#Cough/SOB likely viral
-Now on room air
-Suspected bronchitis or aspiration from vomiting. CXR with no acute findings except chronic prominent asymmetric elevation of the right diaphragm
-Required 2 liters of oxygen in the ED, now off oxygen
-proBNP 680 which is far below the age-related cutoff to rule in CHF exacerbation for age (even though patient is obese, which can lower the proBNP)
-Echocardiogram with LVEF 55%, possible basal inferior wall hypokinesis. Wall motion is also consistent with conduction abnormality -- follow-up with cardiology outpatient
-Patient sees Dr. Rivas (pulmonary) outpatient -- no need for pulmonary consult at this time -- follow-up with pulmonary outpatient
-Home oxygen assessment on discharge
#Prolonged QTc
#Left Upper Extremity Swelling
-Could be swelling from IV access
-LUE ultrasound showed normal results
#Borderline Low Magnesium
#Hypocalcemia
-Replaced, continue to monitor BMP
-Replace Calcium
#CKD stage 3b
-Creatinine ~1.5 (at baseline)
-Continue to monitor BMP
#Chronic HFpEF: recovered EF
-Bilateral lower extremities edema today.
-Hold Lasix given episodes of vomiting and diarrhea
-Strict I's and O's, daily weights
#Stable small right intrarenal calculus without hydronephrosis on CT Imaging
#Cholelithiasis and sludge on CT Imaging
#Chronic prominent asymmetric elevation of the right diaphragm on Chest X-Ray
#History of Left Leg pain due to minimally Displaced Proximal Fibular Shaft Fracture
#Hyperlipidemia
-Continue statin
#Anxiety
-Lexapro, buspirone continued
#History of COPD/asthma
-Patient noted in acute exacerbation
-Fluticasone continued
#Permanent Atrial Fibrillation status post PPM
-Continue Eliquis
-Metoprolol continued with hold parameters
#Coronary Artery Disease
#Essential Hypertension
# Type 2 DM/neuropathy
-Continue Lantus/ Sliding Scale Insulins
-Accucheck
-Gabapentin continued
-Jardiance held
#History of Kidney Stone
#Obesity due to excess calories
#Sleep apnea
-BiPAP at bedtime
DVT Prophylaxis: Eliquis
CODE STATUS: Full code
Patient's contact: his sister Kyra ([phone])
Disposition: On 09/23/24, I discussed patient's case with patient's nurse, who mentioned that patient has generalized weakness and chronic fecal and urinary incontinence, patient will likely need placement.
Anticipated Discharge: 24 - 48 hours
Subjective/Interval History
-
Date of Service: September 25, 2024
Patient was seen and examined. He reported continued diarrhea again.
Objective Data
-
Labs:
Laboratory Results
09/25/24
06:00
WBC Pending
Hgb Pending
Hct Pending
Plt Count Pending
Vital Signs:
Vital Signs
Temp Pulse Resp BP Pulse Ox
99.0 F 65 16 142/62 94
09/25/24 03:59 09/25/24 07:35 09/25/24 07:35 09/25/24 03:59 09/25/24 07:35
I&O
09/24/24 09/25/24 09/26/24
06:59 06:59 06:59
Intake Total 1200 / 1200 960 / 960
Balance 1200 / 1200 960 / 960
[2024-09-25 08:33] VITALS: BP 143/73
[2024-09-25] MEDS: PROTONIX 40 MG PO (08:50)
[2024-09-25] MEDS: LEXAPRO 20 MG PO (08:50)
[2024-09-25] MEDS: NOVOLOG FLEXPEN-LOW RESISTANCE SC ×2 (08:50→17:47)
[2024-09-25] MEDS: MAGNESIUM OXIDE 500 MG PO (08:51)
[2024-09-25] MEDS: TOPROL XL 25 MG PO (08:51)
[2024-09-25] MEDS: NEURONTIN 300 MG PO ×2 (08:51→21:45)
[2024-09-25] MEDS: BUSPAR 10 MG PO ×2 (08:51→21:45)
[2024-09-25] MEDS: ELIQUIS 5 MG PO ×2 (08:52→21:45)
[2024-09-25 09:46] LABS: % Basophils 0.9 % (0-2); % Eosinophils 4.4 % (0-6); % Immature Granulocytes 1.1 % (0-0.5); % Lymphocytes 21.5 % (20.5-51.1); % Neutrophils 66.1 % (42.2-75.2); Absolute Basophils 0.1 10^3/uL (0-0.2); Absolute Eosinophils 0.3 10^3/uL (0-0.7); Absolute Immature Granulocytes 0.1 10^3/uL (0-0.05); Absolute Lymphocytes 1.4 10^3/uL (1.2-3.4); Absolute Monocytes 0.4 10^3/uL (0.1-0.6); Absolute Neutrophils 4.2 10^3/uL (1.4-6.5); Hematocrit 31.6 % (39.0-52.0); Hemoglobin 10.9 g/dL (13.0-18.0); Mean Corp Hgb Conc. 34.5 g/dL (33.0-37.0); Mean Corpuscular Hgb 30.6 pg (27.0-31.0); Mean Corpuscular Volume 88.8 fL (80.0-94.0); Mean Platelet Volume 13.3 fL (7.4-10.4); Nucleated Red Blood Cells % 0 % (-); Platelet Count 140 10^3/uL (130-400); Red Blood Cell Count 3.56 10^6/uL (4.70-6.10); Red Cell Dist. Width 14.1 % (11.5-14.5); White Blood Cell Count 6.4 10^3/uL (4.8-10.8)
[2024-09-25 10:01] LABS: Albumin 3.3 g/dl (3.5-5.0); Magnesium 1.5 mg/dl (1.6-2.3)
[2024-09-25 12:46] LABS: Glucose - Point of Care 152 mg/dl (70-99)
[2024-09-25] MEDS: NOVOLOG FLEXPEN-LOW RESISTANCE 1 UNITS SC (12:47)
[2024-09-25] MEDS: MAGNESIUM SULFATE 50 IV (13:30)
[2024-09-25] MEDS: REFRESH EYE DROPS (PF) 1 DROPS BOTH EYES (15:08)
[2024-09-25 15:13] LABS: Blood Urea Nitrogen 18 mg/dl (9-20); Calcium 8.6 mg/dl (8.4-10.2); Carbon Dioxide 28 mmol/L (22-30); Chloride 100 mmol/L (98-107); Estimated Creatinine Clearance 63 ml/min; Glucose 147 mg/dl (70-99); Potassium 4.2 mmol/L (3.5-5.1); Sodium 136 mmol/L (135-145); eGFR 57.29
[2024-09-25 16:17] VITALS: BP 124/60
[2024-09-25 17:36] LABS: Glucose - Point of Care 130 mg/dl (70-99)
[2024-09-25 21:23] LABS: Glucose - Point of Care 144 mg/dl (70-99)
[2024-09-25] MEDS: LIPITOR 10 MG PO (21:45)
[2024-09-25] MEDS: LANTUS 0.07 UNITS SC (21:47)
[2024-09-25 22:15] VITALS: PULSE 2; PULSE 71
[2024-09-25 23:52] VITALS: BP 102/61
[2024-09-26 02:45] VITALS: PULSE 2; PULSE 76
[2024-09-26 05:55] VITALS: BMI 34.5
[2024-09-26] MEDS: ADVAIR HFA 45/21 MCG INHALER 2 PUFF INH ×2 (08:04→20:00)
[2024-09-26 08:10] LABS: Glucose - Point of Care 126 mg/dl (70-99)
--- NOTE | 2024-09-26 08:15 | W.PN.HOSP.TC ---
Today's Communication/Plan
-
Patient refused labs this morning -- attempts were made to draw labs but patient said he was in pain from needle sticks and refused to get needle stick on his hand to draw labs (IV nurse/pipe finishing supervisor said she could get from a vein near his wrist or
hand, but he refused). I explained the important of labwork to check his electrolytes and how if his potassium and magnesium are low, it can be dangerous, but he still refused further labwork today.
Diarrhea resolved after stopping Magnesium Oxide -- if MgO needed on discharge, can do smaller doses spread throughout day with food
Assessment / Plan
Assessment / Plan
Physical Exam
General: Not in acute distress
HEENT: Normocephalic
Respiratory: Clear to Auscultation Bilaterally
Cardiac: S1/S2 and Regular Rhythm
GI: Soft, Non Tender, Non Distended and Normal Bowel Sounds
Musculoskeletal: No Cyanosis and Other (Bilateral lower extremity edema)
Skin: Warm. Dry.
Neuro: AAO x 3 and Nonfocal/grossly intact. Bilateral lower extremity strength and sensation intact.
Psych: Calm
Assessment/Plan
73-year-old male past medical history of permanent atrial fibrillation on Eliquis, HFpEF, hypertension, CKD 3, restrictive lung disease, obstructive sleep apnea, diabetes, presenting with nausea and vomiting and diarrhea over the past few days after
eating lasagna at a supermarket. Also with new dry cough and acute on chronic shortness of breath intermittently. Labs initially showed leukocytosis. Renal function at baseline. Initial lactic acid of 2.4. CT abdomen pelvis showed no acute process
within the abdomen or pelvis. Chest x-ray appeared to show low lung volumes/atelectasis. Presentation consistent with acute viral gastroenteritis. IV fluids given but hold further fluids due to shortness of breath and chronic heart failure.
#Nausea/Vomiting/Diarrhea Secondary to Norovirus
#Norovirus
#Fever 100.7 F on 09/22/24 morning - RESOLVED
#Leukocytosis - RESOLVED
#Lactic Acidosis - RESOLVED
-CT Abdomen Pelvis with no acute process, showed cholelithiasis (and sludge) but no cholecystitis
-Patient is positive for Norovirus, although his GI symptoms have improved
-Cholesterol Lowering Diet
-Patient reports some cough, but CXR with no pneumonia or evidence of CHF
-Influenza and COVID negative
-Bilateral lower extremities with chronic, mild erythema near the ankles, patient says they have been present for a long time, no convincing evidence of cellulitis
-Continue to monitor patient clinically of antibiotics especially with resolution of lactic acidosis and normalization of the WBC
-If patient needs IV fluids, then can give small 250 cc boluses at a time given history of CHF
-Diarrhea returned on 09/25/24 -- possibly from Magnesium oxide -- held Magnesium oxide for now -- diarrhea improved after this -- if MgO needed on discharge, can do smaller doses spread throughout day with food
#Cough/SOB likely viral
-Now on room air
-Suspected bronchitis or aspiration from vomiting. CXR with no acute findings except chronic prominent asymmetric elevation of the right diaphragm
-Required 2 liters of oxygen in the ED, now off oxygen
-proBNP 680 which is far below the age-related cutoff to rule in CHF exacerbation for age (even though patient is obese, which can lower the proBNP)
-Echocardiogram with LVEF 55%, possible basal inferior wall hypokinesis. Wall motion is also consistent with conduction abnormality -- follow-up with cardiology outpatient
-Patient sees Dr. Rivas (pulmonary) outpatient -- no need for pulmonary consult at this time -- follow-up with pulmonary outpatient
-Home oxygen assessment on discharge
#Prolonged QTc
#Left Upper Extremity Swelling
-Could be swelling from IV access
-LUE ultrasound showed normal results
#Borderline Low Magnesium
#Hypocalcemia
-Replaced, continue to monitor BMP
-Replace Calcium
#CKD stage 3b
-Creatinine ~1.5 (at baseline)
-Continue to monitor BMP
#Chronic HFpEF: recovered EF
-Bilateral lower extremities edema today.
-Hold Lasix given episodes of vomiting and diarrhea
-Strict I's and O's, daily weights
#Stable small right intrarenal calculus without hydronephrosis on CT Imaging
#Cholelithiasis and sludge on CT Imaging
#Chronic prominent asymmetric elevation of the right diaphragm on Chest X-Ray
#History of Left Leg pain due to minimally Displaced Proximal Fibular Shaft Fracture
#Hyperlipidemia
-Continue statin
#Anxiety
-Lexapro, buspirone continued
#History of COPD/asthma
-Patient noted in acute exacerbation
-Fluticasone continued
#Permanent Atrial Fibrillation status post PPM
-Continue Eliquis
-Metoprolol continued with hold parameters
#Coronary Artery Disease
#Essential Hypertension
# Type 2 DM/neuropathy
-Continue Lantus/ Sliding Scale Insulins
-Accucheck
-Gabapentin continued
-Jardiance held
#History of Kidney Stone
#Obesity due to excess calories
#Sleep apnea
-BiPAP at bedtime
DVT Prophylaxis: Eliquis
Code Status: Full code
Patient's contact: his sister Kyra ([phone])
Disposition: On 09/23/24, I discussed patient's case with patient's nurse, who mentioned that patient has chronic generalized weakness and chronic fecal and urinary incontinence, patient will likely need placement. Patient's
sister is absolutely against a SNF and is arranging for 24 hr care for him however, the caregivers are not in place yet. Patient's sister is out of town and he can�t go home because there�s no one
there.
Anticipated Discharge: > 48 hours
Subjective/Interval History
-
Date of Service: September 26, 2024
Patient was seen and examined. Diarrhea has improved.
Objective Data
-
Labs:
Laboratory Results
09/26/24
06:00
WBC Pending
Hgb Pending
Hct Pending
Plt Count Pending
Sodium Pending
Potassium Pending
Chloride Pending
Carbon Dioxide Pending
BUN Pending
Creatinine Pending
Glucose Pending
Calcium Pending
Vital Signs:
Vital Signs
Temp Pulse Resp BP Pulse Ox
98.3 F 64 16 102/61 95
09/25/24 23:52 09/26/24 08:06 09/26/24 08:06 09/25/24 23:52 09/26/24 08:06
I&O
09/25/24 09/26/24 09/27/24
06:59 06:59 06:59
Intake Total 960 / 960 1680 / 1680
Balance 960 / 960 1680 / 1680
[2024-09-26 08:45] VITALS: BP 130/74
[2024-09-26] MEDS: NEURONTIN 300 MG PO ×2 (08:48→22:19)
[2024-09-26] MEDS: NOVOLOG FLEXPEN-LOW RESISTANCE SC ×2 (08:48→17:38)
[2024-09-26] MEDS: TOPROL XL 25 MG PO (08:48)
[2024-09-26] MEDS: LEXAPRO 20 MG PO (08:48)
[2024-09-26] MEDS: PROTONIX 40 MG PO (08:48)
[2024-09-26] MEDS: BUSPAR 10 MG PO ×2 (09:03→22:19)
[2024-09-26] MEDS: ELIQUIS 5 MG PO ×2 (09:03→22:19)
[2024-09-26] MEDS: REFRESH EYE DROPS (PF) 1 DROPS BOTH EYES (09:06)
--- NOTE | 2024-09-26 09:58 | PTCARENOTE ---
Patient is refusing lab draw. RN explained importance of evaluating labs. Patient stated, 'I will think about it and let you know.'
--- NOTE | 2024-09-26 10:45 | PTCARENOTE ---
Patient frequently screaming for RN. RN asked patient to stop screaming and notified patient that RN was in another patient's room. Patient continued to yell for nurse and then proceeded to call handle rounder operator multiple times. RN into see patient agin.
Patient stqtes, 'I have called you 28 times, where were you?
[2024-09-26 12:08] LABS: Glucose - Point of Care 187 mg/dl (70-99)
[2024-09-26 12:24] VITALS: BP 117/58
--- NOTE | 2024-09-26 13:05 | CM ---
Received notification from attending that he spoke with patient and patient now agreeable to transfer to an NH. Spoke with nursing electronics supervisor who stated that patient's sister called and would like return call. Placed a return call to patient's
sister, Kyra, who stated that she does not want for patient to transfer to a SNF under any circumstances as he has been to multiple and has never improved. She stated that she is in the process of arranging for 24 hr care however she is away this
weekend and unable to put plans in place.
Attending updated.
Plan: Case management will continue to follow and assist with discharge planning. Home with 24 hr care.
[2024-09-26] MEDS: NOVOLOG FLEXPEN-LOW RESISTANCE 1 UNITS SC (13:21)
[2024-09-26 16:07] VITALS: BP 153/80
[2024-09-26 17:11] LABS: Glucose - Point of Care 148 mg/dl (70-99)
[2024-09-26 21:51] LABS: Glucose - Point of Care 124 mg/dl (70-99)
[2024-09-26] MEDS: LIPITOR 10 MG PO (22:19)
[2024-09-26] MEDS: LANTUS 0.07 UNITS SC (22:20)
[2024-09-26 23:00] VITALS: BP 103/49
[2024-09-26 23:25] VITALS: PULSE 2; PULSE 62
[2024-09-27 02:58] VITALS: PULSE 2
[2024-09-27 05:58] VITALS: BMI 34.1
--- NOTE | 2024-09-27 06:41 | W.PN.HOSP.TC ---
Today's Communication/Plan
-
ankle X-ray
PT/OT
safe discharge planning
Assessment / Plan
Assessment / Plan
Physical Exam
General: Not in acute distress
HEENT: Normocephalic
Respiratory: Clear to Auscultation Bilaterally
Cardiac: S1/S2 and Regular Rhythm
GI: Soft, Non Tender, Non Distended and Normal Bowel Sounds
Musculoskeletal: No Cyanosis and Other (Bilateral lower extremity edema)
Skin: Warm. Dry.
Neuro: AAO x 3 and Nonfocal/grossly intact. Bilateral lower extremity strength and sensation intact.
Psych: Calm
Assessment/Plan
73-year-old male past medical history of permanent atrial fibrillation on Eliquis, HFpEF, hypertension, CKD 3, restrictive lung disease, obstructive sleep apnea, diabetes, presenting with nausea and vomiting and diarrhea over the past few days after
eating lasagna at a supermarket. Also with new dry cough and acute on chronic shortness of breath intermittently. Labs initially showed leukocytosis. Renal function at baseline. Initial lactic acid of 2.4. CT abdomen pelvis showed no acute process
within the abdomen or pelvis. Chest x-ray appeared to show low lung volumes/atelectasis. Presentation consistent with acute viral gastroenteritis. IV fluids given but hold further fluids due to shortness of breath and chronic heart failure.
#Nausea/Vomiting/Diarrhea Secondary to Norovirus
#Norovirus
#Fever 100.7 F on 09/22/24 morning - RESOLVED
#Leukocytosis - RESOLVED
#Lactic Acidosis - RESOLVED
-CT Abdomen Pelvis with no acute process, showed cholelithiasis (and sludge) but no cholecystitis
-Patient is positive for Norovirus, although his GI symptoms have improved
-Cholesterol Lowering Diet
-Patient reports some cough, but CXR with no pneumonia or evidence of CHF
-Influenza and COVID negative
-Bilateral lower extremities with chronic, mild erythema near the ankles, patient says they have been present for a long time, no convincing evidence of cellulitis
-Continue to monitor patient clinically of antibiotics especially with resolution of lactic acidosis and normalization of the WBC
-If patient needs IV fluids, then can give small 250 cc boluses at a time given history of CHF
-Diarrhea returned on 09/25/24 -- possibly from Magnesium oxide -- held Magnesium oxide for now -- diarrhea since improved/resolved --
#Cough/SOB likely viral
-Now on room air
-Suspected bronchitis or aspiration from vomiting. CXR with no acute findings except chronic prominent asymmetric elevation of the right diaphragm
-Required 2 liters of oxygen in the ED, now off oxygen
-proBNP 680 which is far below the age-related cutoff to rule in CHF exacerbation for age (even though patient is obese, which can lower the proBNP)
-Echocardiogram with LVEF 55%, possible basal inferior wall hypokinesis. Wall motion is also consistent with conduction abnormality -- follow-up with cardiology outpatient
-Patient sees Dr. Rivas (pulmonary) outpatient -- no need for pulmonary consult at this time -- follow-up with pulmonary outpatient
-Home oxygen assessment on discharge
#Prolonged QTc
#Left Upper Extremity Swelling
-Could be swelling from IV access
-LUE ultrasound showed normal results
#Borderline Low Magnesium
#Hypocalcemia
-Calcium and Magnesium Repleted
-patient refusing subsequent follow up labs , not urgent, outpt repeat recommended
#CKD stage 3b
-Creatinine ~1.5 (at baseline)
-Continue to monitor BMP
#Chronic HFpEF: recovered EF
-Bilateral lower extremities edema today.
-Hold Lasix given episodes of vomiting and diarrhea
-Strict I's and O's, daily weights
#Stable small right intrarenal calculus without hydronephrosis on CT Imaging
#Cholelithiasis and sludge on CT Imaging
#Chronic prominent asymmetric elevation of the right diaphragm on Chest X-Ray
#History of Left Leg pain due to minimally Displaced Proximal Fibular Shaft Fracture
#Hyperlipidemia
-Continue statin
#Anxiety
-Lexapro, buspirone continued
#History of COPD/asthma
-Patient noted in acute exacerbation
-Fluticasone continued
#Permanent Atrial Fibrillation status post PPM
-Continue Eliquis
-Metoprolol continued with hold parameters
#Coronary Artery Disease
#Essential Hypertension
# Type 2 DM/neuropathy
-Continue Lantus/ Sliding Scale Insulins
-Accucheck
-Gabapentin continued
-Jardiance held
#History of Kidney Stone
#Obesity due to excess calories
#Sleep apnea
-BiPAP at bedtime
#Reporting Right Ankle Pain
Right Ankle X-ray appreciated
-No evidence of acute fracture or dislocation.
-Small to moderate posterior calcaneal spur.
-Multiple small soft tissue calcifications within the right lower leg, greatest anteromedially, most likely on the basis of chronic venous insufficiency.
DVT Prophylaxis: Eliquis
Code Status: Full code
Patient's contact: his sister Kyra ([phone])
Disposition: On 09/23/24, Dr Alonzo discussed patient's case with patient's nurse, who mentioned that patient has chronic generalized weakness and chronic fecal and urinary incontinence, patient will likely need placement. Patient's
sister is absolutely against a SNF and is arranging for 24 hr care for him however, the caregivers are not in place yet. Patient's sister is out of town and he can�t go home because there�s no one there.
I spent a total of 40 minutes with the patient or on the floor. More than 50% of this time involved counseling and coordination of care.
Anticipated Discharge: 24 - 48 hours
Subjective/Interval History
-
Date of Service: September 27, 2024
No acute distress. Reporting right ankle pain
Objective Data
-
Labs:
Laboratory Results
09/27/24
06:00
Sodium Pending
Potassium Pending
Chloride Pending
Carbon Dioxide Pending
BUN Pending
Creatinine Pending
Glucose Pending
Calcium Pending
Vital Signs:
Vital Signs
Temp Pulse Resp BP Pulse Ox
98.2 F 58 19 103/49 97
09/26/24 23:00 09/26/24 23:00 09/26/24 23:00 09/26/24 23:00 09/26/24 23:00
I&O
09/25/24 09/26/24 09/27/24
06:59 06:59 06:59
Intake Total 960 / 960 1680 / 1680
Balance 960 / 960 1680 / 1680
[2024-09-27 07:35] VITALS: BP 108/71
[2024-09-27 08:07] LABS: Glucose - Point of Care 113 mg/dl (70-99)
[2024-09-27] MEDS: ADVAIR HFA 45/21 MCG INHALER 2 PUFF INH ×2 (08:14→19:32)
[2024-09-27] MEDS: NOVOLOG FLEXPEN-LOW RESISTANCE SC ×3 (08:21→16:57)
[2024-09-27] MEDS: PROTONIX 40 MG PO (09:18)
[2024-09-27] MEDS: LEXAPRO 20 MG PO (09:18)
[2024-09-27] MEDS: ELIQUIS 5 MG PO ×2 (09:18→21:07)
[2024-09-27] MEDS: BUSPAR 10 MG PO ×2 (09:18→21:07)
[2024-09-27] MEDS: NEURONTIN 300 MG PO ×2 (09:18→21:07)
[2024-09-27] MEDS: TOPROL XL PO (09:19)
--- NOTE | 2024-09-27 10:37 | CM ---
Received call from patient's sister, Kyra, who stated that she is still working on lining up caregivers for patient but nothing is in place as of now. She stated that due to the holidays things have been more difficult. She feels that she can get
everything arranged soon and is actively working on it. Will update attending.
Plan: Case management will continue to follow and assist with discharge planning. Home with caregivers once arranged.
[2024-09-27] MEDS: REFRESH EYE DROPS (PF) 1 DROPS BOTH EYES (10:42)
[2024-09-27 12:13] LABS: Glucose - Point of Care 144 mg/dl (70-99)
[2024-09-27 15:49] VITALS: BP 108/59
--- NOTE | 2024-09-27 16:40 | PTCARENOTE ---
Patient uncooperative with care at times. Also has been verbally abusive towards staff members. Attempts to reinforce that this behavior is inappropriate met with more verbal abuse.
Attempted to educate on importance of fluid restriction and patient stated 'Screw that bullshit.'
[2024-09-27 16:48] LABS: Glucose - Point of Care 118 mg/dl (70-99)
[2024-09-27 21:06] VITALS: BMI 34.1
[2024-09-27] MEDS: LIPITOR 10 MG PO (21:07)
[2024-09-27 21:35] LABS: Glucose - Point of Care 125 mg/dl (70-99)
[2024-09-27] MEDS: LANTUS 0.07 UNITS SC (21:39)
[2024-09-27 22:30] VITALS: PULSE 2; PULSE 77
[2024-09-27 23:08] VITALS: BP 126/59
[2024-09-28] VITALS (7 sets, daily range): BP systolic 134–157; BP diastolic 65–93; PULSE 2–76; BMI 33.8
[2024-09-28] MEDS: ADVAIR HFA 45/21 MCG INHALER 2 PUFF INH ×2 (07:37→19:35)
[2024-09-28] MEDS: PROTONIX 40 MG PO (08:09)
[2024-09-28] MEDS: NEURONTIN 300 MG PO ×3 (08:09→20:17)
[2024-09-28] MEDS: TOPROL XL 25 MG PO (08:09)
[2024-09-28] MEDS: LEXAPRO 20 MG PO (08:09)
[2024-09-28] MEDS: BUSPAR 10 MG PO ×2 (08:09→20:17)
[2024-09-28] MEDS: ELIQUIS 5 MG PO ×2 (08:10→20:17)
--- NOTE | 2024-09-28 08:26 | W.PN.HOSP.TC ---
Today's Communication/Plan
-
increase Gabapentin
resume Lasix
glycemic control
pending Lower ext Arterial US CHAPARRO
Assessment / Plan
Assessment / Plan
Physical Exam
General: Not in acute distress
HEENT: Normocephalic
Respiratory: Clear to Auscultation Bilaterally
Cardiac: S1/S2 and Regular Rhythm
GI: Soft, Non Tender, Non Distended and Normal Bowel Sounds
Musculoskeletal: No Cyanosis, right straight leg raise positive
Skin: Warm. Dry.
Neuro: AAO x 3
Psych: Calm
Assessment/Plan
73-year-old male past medical history of permanent atrial fibrillation on Eliquis, HFpEF, hypertension, CKD 3, restrictive lung disease, obstructive sleep apnea, diabetes, presenting with nausea and vomiting and diarrhea over the past few days after
eating lasagna at a supermarket. Also with new dry cough and acute on chronic shortness of breath intermittently. Labs initially showed leukocytosis. Renal function at baseline. Initial lactic acid of 2.4. CT abdomen pelvis showed no acute process
within the abdomen or pelvis. Chest x-ray appeared to show low lung volumes/atelectasis. Presentation consistent with acute viral gastroenteritis. IV fluids given but hold further fluids due to shortness of breath and chronic heart failure.
#Nausea/Vomiting/Diarrhea Secondary to Norovirus
#Norovirus
#Fever 100.7 F on 09/22/24 morning - RESOLVED
#Leukocytosis - RESOLVED
#Lactic Acidosis - RESOLVED
-CT Abdomen Pelvis with no acute process, showed cholelithiasis (and sludge) but no cholecystitis
-Patient is positive for Norovirus, although his GI symptoms have improved
-Cholesterol Lowering Diet
-Patient reports some cough, but CXR with no pneumonia or evidence of CHF
-Influenza and COVID negative
-Bilateral lower extremities with chronic, mild erythema near the ankles, patient says they have been present for a long time, no convincing evidence of cellulitis
-Continue to monitor patient clinically of antibiotics especially with resolution of lactic acidosis and normalization of the WBC
-If patient needs IV fluids, then can give small 250 cc boluses at a time given history of CHF
-Diarrhea returned on 09/25/24 -- possibly from Magnesium oxide -- held Magnesium oxide for now -- diarrhea since improved/resolved --
#Cough/SOB likely viral
-Now on room air
-Suspected bronchitis or aspiration from vomiting. CXR with no acute findings except chronic prominent asymmetric elevation of the right diaphragm
-Required 2 liters of oxygen in the ED, now off oxygen
-proBNP 680 which is far below the age-related cutoff to rule in CHF exacerbation for age (even though patient is obese, which can lower the proBNP)
-Echocardiogram with LVEF 55%, possible basal inferior wall hypokinesis. Wall motion is also consistent with conduction abnormality -- follow-up with cardiology outpatient
-Patient sees Dr. Rivas (pulmonary) outpatient -- no need for pulmonary consult at this time -- follow-up with pulmonary outpatient
-Home oxygen assessment on discharge
#Prolonged QTc
#Left Upper Extremity Swelling
-Could be swelling from IV access
-LUE ultrasound showed normal results
#Borderline Low Magnesium
#Hypocalcemia
-Calcium and Magnesium Repleted
-patient refusing subsequent follow up labs , not urgent, outpt repeat recommended
#CKD stage 3b
-Creatinine ~1.5 (at baseline)
-Continue to monitor BMP
#Chronic HFpEF: recovered EF
-Bilateral lower extremities edema today.
-Hold Lasix given episodes of vomiting and diarrhea
-Strict I's and O's, daily weights
#Stable small right intrarenal calculus without hydronephrosis on CT Imaging
#Cholelithiasis and sludge on CT Imaging
#Chronic prominent asymmetric elevation of the right diaphragm on Chest X-Ray
#History of Left Leg pain due to minimally Displaced Proximal Fibular Shaft Fracture
#Hyperlipidemia
-Continue statin
#Anxiety
-Lexapro, buspirone continued
#History of COPD/asthma
-Patient noted in acute exacerbation
-Fluticasone continued
#Permanent Atrial Fibrillation status post PPM
-Continue Eliquis
-Metoprolol continued with hold parameters
#Coronary Artery Disease
#Essential Hypertension
# Type 2 DM/neuropathy
-Continue Lantus/ Sliding Scale Insulins
-Accucheck
-Gabapentin continued increased from 300 mg BID to TID
-Jardiance held
#History of Kidney Stone
#Obesity due to excess calories
#Sleep apnea
-BiPAP at bedtime
#Reporting Right Ankle Pain radiating/shooting up leg
Right Ankle X-ray appreciated
-No evidence of acute fracture or dislocation.
-Small to moderate posterior calcaneal spur.
-Multiple small soft tissue calcifications within the right lower leg, greatest anteromedially, most likely on the basis of chronic venous insufficiency.
Suspect sciatica vs neuropathy vs PAD
home Gabapentin increased to TID as above
pending arterial CHAPARRO lower ext's
DVT Prophylaxis: Eliquis
Code Status: Full code
Patient's contact: his sister Kyra ([phone])
Disposition: On 09/23/24, Dr Alonzo discussed patient's case with patient's nurse, who mentioned that patient has chronic generalized weakness and chronic fecal and urinary incontinence, patient will likely need placement. Patient's sister is
absolutely against SNF and is arranging for 24 hr care for him however, the caregivers are not in place yet. Patient's sister is out of town and he can�t go home because there�s no one there.
Discussed with patient and patient's sister Kyra
I spent a total of 40 minutes with the patient or on the floor. More than 50% of this time involved counseling and coordination of care.
Anticipated Discharge: 24 - 48 hours
Subjective/Interval History
-
Date of Service: September 28, 2024
Diarrhea appears resolved at this time. Continues to report RLE pain that travels up his leg from his ankle. Reports the pain interferes with his ambulation, able to take a few steps with walker before the pain causes him to stop and rest.
Objective Data
-
Vital Signs:
Vital Signs
Temp Pulse Resp BP Pulse Ox
98.7 F 72 16 139/65 98
09/28/24 03:38 09/28/24 07:38 09/28/24 07:38 09/28/24 03:38 09/28/24 07:38
I&O
09/27/24 09/28/24 09/29/24
06:59 06:59 06:59
Intake Total 1140 / 1140
Output Total 200 / 200
Balance 940 / 940
[2024-09-28 08:43] LABS: Glucose - Point of Care 105 mg/dl (70-99)
[2024-09-28] MEDS: NOVOLOG FLEXPEN-LOW RESISTANCE SC ×2 (08:53→17:19)
--- NOTE | 2024-09-28 09:50 | CM ---
PT OT indicate SNF.
As per prior CM notes Sister Kyra requests home with [facility] .They refused SNF.
Kyra is working on securing 24 hour care givers but has not secured yet.
PLAN Home with [facility] after 24 hours care givers secured
[2024-09-28 11:37] LABS: Glucose - Point of Care 167 mg/dl (70-99)
[2024-09-28] MEDS: NOVOLOG FLEXPEN-LOW RESISTANCE 1 UNITS SC (12:57)
[2024-09-28 17:20] LABS: Glucose - Point of Care 144 mg/dl (70-99)
[2024-09-28] MEDS: LIPITOR 10 MG PO (20:17)
[2024-09-28 22:10] LABS: Glucose - Point of Care 148 mg/dl (70-99)
[2024-09-28] MEDS: LANTUS 0.07 UNITS SC (22:19)
[2024-09-29 04:57] VITALS: PULSE 2
[2024-09-29 06:00] VITALS: BMI 34.1
[2024-09-29 07:00] VITALS: BP 139/74
--- NOTE | 2024-09-29 07:12 | W.PN.HOSP.TC ---
Today's Communication/Plan
-
lidocaine patches
trial low dose baclofen
pain control
Home lasix resumed, cont fluid restriction
Pending arterial study
cont PT/OT
Assessment / Plan
Assessment / Plan
Physical Exam
General: Not in acute distress
HEENT: Normocephalic
Respiratory: faint basilar crackles
Cardiac: S1/S2 and Regular Rhythm
GI: Soft, Non Tender, Non Distended and Normal Bowel Sounds
Musculoskeletal: No Cyanosis, right straight leg raise positive
Skin: Warm. Dry.
Neuro: AAO x 3
Psych: Calm
Assessment/Plan
73-year-old male past medical history of permanent atrial fibrillation on Eliquis, HFpEF, hypertension, CKD 3, restrictive lung disease, obstructive sleep apnea, diabetes, presenting with nausea and vomiting and diarrhea over the past few days after
eating lasagna at a supermarket. Also with new dry cough and acute on chronic shortness of breath intermittently. Labs initially showed leukocytosis. Renal function at baseline. Initial lactic acid of 2.4. CT abdomen pelvis showed no acute process
within the abdomen or pelvis. Chest x-ray appeared to show low lung volumes/atelectasis. Presentation consistent with acute viral gastroenteritis. IV fluids given but hold further fluids due to shortness of breath and chronic heart failure.
#Nausea/Vomiting/Diarrhea Secondary to Norovirus
#Norovirus
#Fever 100.7 F on 09/22/24 morning - RESOLVED
#Leukocytosis - RESOLVED
#Lactic Acidosis - RESOLVED
-CT Abdomen Pelvis with no acute process, showed cholelithiasis (and sludge) but no cholecystitis
-Patient is positive for Norovirus, although his GI symptoms have improved
-Cholesterol Lowering Diet
-Patient reports some cough, but CXR with no pneumonia or evidence of CHF
-Influenza and COVID negative
-Bilateral lower extremities with chronic, mild erythema near the ankles, patient says they have been present for a long time, no convincing evidence of cellulitis
-Continue to monitor patient clinically of antibiotics especially with resolution of lactic acidosis and normalization of the WBC
-If patient needs IV fluids, then can give small 250 cc boluses at a time given history of CHF
-Diarrhea returned on 09/25/24 -- possibly from Magnesium oxide -- held Magnesium oxide for now -- diarrhea since improved/resolved --
#Cough/SOB resolved
-Required 2 liters of oxygen in the ED
-weaned off oxygen supplementation to room air
-Suspected bronchitis or aspiration from vomiting. CXR with no acute findings
#Prolonged QTc
#Borderline Low Magnesium resolved
#Hypocalcemia resolved
-Calcium and Magnesium Repleted
#CKD stage 3b
#Chronic HFpEF: recovered EF
-Bilateral lower extremities edema today.
-Lasix held given episodes of vomiting and diarrhea, since resolved Lasix resumed
-Strict I's and O's, daily weights
-fluid restriction
#Stable small right intrarenal calculus without hydronephrosis on CT Imaging
#Cholelithiasis and sludge on CT Imaging
#Chronic prominent asymmetric elevation of the right diaphragm on Chest X-Ray
#History of Left Leg pain due to minimally Displaced Proximal Fibular Shaft Fracture
#Hyperlipidemia
-Continue statin
#Anxiety
-Lexapro, buspirone continued
#History of COPD/asthma
-Patient noted in acute exacerbation
-Fluticasone continued
#Permanent Atrial Fibrillation status post PPM
-Continue Eliquis
-Metoprolol continued with hold parameters
#Coronary Artery Disease
#Essential Hypertension
# Type 2 DM/neuropathy
-Continue Lantus/ Sliding Scale Insulins
-Accucheck
-Gabapentin continued increased from 300 mg BID to TID
-Jardiance held
#History of Kidney Stone
#Obesity due to excess calories
#Sleep apnea
-BiPAP at bedtime
#Reporting Right Ankle Pain radiating/shooting up leg
Right Ankle X-ray appreciated
-No evidence of acute fracture or dislocation.
-Small to moderate posterior calcaneal spur.
-Multiple small soft tissue calcifications within the right lower leg, greatest anteromedially, most likely on the basis of chronic venous insufficiency.
Rt Tibula/Fibula XR appreciated no acute abn's
Rt Hip and Femur XR's appreciated no acute abn's
Suspect sciatica vs neuropathy vs PAD vs muscle cramping/spasm (possible multifactorial all or partial contributing)
home Gabapentin increased to TID as above
Lidocaine patches thigh and ankle
trial low dose baclofen
pending arterial CHAPARRO lower ext's
cont PT/OT
DVT Prophylaxis: Eliquis
Code Status: Full code
Patient's contact: his sister Kyra ([phone])
Disposition: On 09/23/24, Dr Alonzo discussed patient's case with patient's nurse, who mentioned that patient has chronic generalized weakness and chronic fecal and urinary incontinence, patient will likely need placement. Patient's sister is
absolutely against SNF and is arranging for 24 hr care for him however, the caregivers are not in place yet. Patient's sister is out of town and he can�t go home because there�s no one there.
Discussed with patient and patient's sister Kyra
I spent a total of 40 minutes with the patient or on the floor. More than 50% of this time involved counseling and coordination of care.
Anticipated Discharge: 24 - 48 hours
Subjective/Interval History
-
Date of Service: September 29, 2024
Seen and examined at bedside in no acute distress resting comfortably in bed. Reports persistent RLE pain. Also notes some shortness of breath, though respiratory status remains stable on room air. Notably patient has also been gaining weight.
Discussed with nurse noted concerns patient has been cheating on his fluid restriction.
Objective Data
-
Vital Signs:
Vital Signs
Temp Pulse Resp BP Pulse Ox
98.0 F 64 18 136/93 94
09/28/24 23:26 09/28/24 23:26 09/28/24 23:26 09/28/24 23:26 09/28/24 23:26
I&O
09/28/24 09/29/24 09/30/24
06:59 06:59 06:59
Intake Total 1140 / 1140 360 / 360
Output Total 200 / 200
Balance 940 / 940 360 / 360
[2024-09-29 07:21] LABS: Glucose - Point of Care 129 mg/dl (70-99)
[2024-09-29] MEDS: NOVOLOG FLEXPEN-LOW RESISTANCE SC ×2 (07:23→16:24)
[2024-09-29] MEDS: ADVAIR HFA 45/21 MCG INHALER 2 PUFF INH ×2 (07:40→17:21)
[2024-09-29] MEDS: LEXAPRO 20 MG PO (08:04)
[2024-09-29] MEDS: NEURONTIN 300 MG PO ×3 (08:04→21:52)
[2024-09-29] MEDS: ELIQUIS 5 MG PO ×2 (08:04→20:25)
[2024-09-29] MEDS: PROTONIX 40 MG PO (08:04)
[2024-09-29] MEDS: REFRESH EYE DROPS (PF) 1 DROPS BOTH EYES ×2 (08:04→20:29)
[2024-09-29] MEDS: LASIX 80 MG PO (08:04)
[2024-09-29] MEDS: TOPROL XL 25 MG PO (08:05)
[2024-09-29] MEDS: BUSPAR 10 MG PO ×2 (08:05→20:24)
[2024-09-29 11:45] LABS: Glucose - Point of Care 168 mg/dl (70-99)
[2024-09-29 12:41] LABS: Blood Urea Nitrogen 18 mg/dl (9-20); Calcium 8.5 mg/dl (8.4-10.2); Carbon Dioxide 29 mmol/L (22-30); Chloride 100 mmol/L (98-107); Estimated Creatinine Clearance 64 ml/min; Glucose 120 mg/dl (70-99); Magnesium 1.8 mg/dl (1.6-2.3); Phosphorus 2.7 mg/dl (2.5-4.5); Potassium 4.7 mmol/L (3.5-5.1); Sodium 135 mmol/L (135-145); eGFR 57.29
[2024-09-29] MEDS: LIDOCAINE 4% PATCH 1 PATCH TOPICAL ×2 (12:56→12:57)
[2024-09-29] MEDS: NOVOLOG FLEXPEN-LOW RESISTANCE 1 UNITS SC (12:57)
[2024-09-29] MEDS: LIORESAL 2.5 MG PO ×2 (12:57→20:25)
[2024-09-29 16:06] VITALS: BP 126/90
[2024-09-29 16:24] LABS: Glucose - Point of Care 147 mg/dl (70-99)
[2024-09-29 21:47] LABS: Glucose - Point of Care 136 mg/dl (70-99)
[2024-09-29] MEDS: LIPITOR 10 MG PO (21:52)
[2024-09-29] MEDS: LANTUS 0.07 UNITS SC (21:52)
[2024-09-29 22:54] VITALS: PULSE 2
[2024-09-29 23:00] VITALS: BP 108/58
[2024-09-30 06:00] VITALS: BMI 34.1
--- NOTE | 2024-09-30 06:46 | W.PN.HOSP.TC ---
Today's Communication/Plan
-
pain improving
cont PT/OT
lidocaine patches
low dose baclofen
Lasix
Fluid restriction loosen to 64 oz
cont PT/OT
Assessment / Plan
Assessment / Plan
Physical Exam
General: Not in acute distress
HEENT: Normocephalic
Respiratory: faint basilar crackles
Cardiac: S1/S2 and Regular Rhythm
GI: Soft, Non Tender, Non Distended and Normal Bowel Sounds
Musculoskeletal: No Cyanosis, right straight leg raise positive
Skin: Warm. Dry.
Neuro: AAO x 3
Psych: Calm
Assessment/Plan
73-year-old male past medical history of permanent atrial fibrillation on Eliquis, HFpEF, hypertension, CKD 3, restrictive lung disease, obstructive sleep apnea, diabetes, presenting with nausea and vomiting and diarrhea over the past few days after
eating lasagna at a supermarket. Also with new dry cough and acute on chronic shortness of breath intermittently. Labs initially showed leukocytosis. Renal function at baseline. Initial lactic acid of 2.4. CT abdomen pelvis showed no acute process
within the abdomen or pelvis. Chest x-ray appeared to show low lung volumes/atelectasis. Presentation consistent with acute viral gastroenteritis. IV fluids given but hold further fluids due to shortness of breath and chronic heart failure.
#Nausea/Vomiting/Diarrhea Secondary to Norovirus
#Norovirus
#Fever 100.7 F on 09/22/24 morning - RESOLVED
#Leukocytosis - RESOLVED
#Lactic Acidosis - RESOLVED
-CT Abdomen Pelvis with no acute process, showed cholelithiasis (and sludge) but no cholecystitis
-Norovirus pos, diarrhea since resolved
-Influenza and COVID negative
-Diarrhea later returned, attributed to PO mag oxide resolved with discontinuation
#SOB resolved
-Required 2 liters of oxygen in the ED
-weaned off oxygen supplementation to room air
-Suspected bronchitis or aspiration from vomiting (acute bronchitis vs aspiration pneumonitis). CXR with no acute findings
#Chronic Cough
cont with outpt Pulm follow up, previously arranged as per pt
mucinex
#Prolonged QTc
#Borderline Low Magnesium
#Hypocalcemia
-resolved following repletions and resolution diarrhea
#CKD stage 3b
#Chronic HFpEF: recovered EF
-Bilateral lower extremities edema today.
-Lasix held given episodes of vomiting and diarrhea, since resolved, Lasix resumed
-Strict I's and O's, daily weights
-fluid restriction
#Stable small right intrarenal calculus without hydronephrosis on CT Imaging
#Cholelithiasis and sludge on CT Imaging
#Chronic prominent asymmetric elevation of the right diaphragm on Chest X-Ray
#History of Left Leg pain due to minimally Displaced Proximal Fibular Shaft Fracture
#Hyperlipidemia
-Continue statin
#Anxiety
-Lexapro, buspirone continued
#History of COPD/asthma
-Patient noted in acute exacerbation
-Fluticasone continued
#Permanent Atrial Fibrillation status post PPM
-Continue Eliquis
-Metoprolol continued with hold parameters
#Coronary Artery Disease
#Essential Hypertension
# Type 2 DM/neuropathy
-Continue Lantus/ Sliding Scale Insulins
-Accucheck
-Gabapentin continued increased from 300 mg BID to TID
-Jardiance held
#History of Kidney Stone
#Obesity due to excess calories
#Sleep apnea
-BiPAP at bedtime
#Reporting Right Ankle Pain radiating/shooting up leg
Right Ankle X-ray appreciated
-No evidence of acute fracture or dislocation.
-Small to moderate posterior calcaneal spur.
-Multiple small soft tissue calcifications within the right lower leg, greatest anteromedially, most likely on the basis of chronic venous insufficiency.
Rt Tibula/Fibula XR appreciated no acute abn's
Rt Hip and Femur XR's appreciated no acute abn's
Suspect sciatica vs neuropathy vs PAD vs muscle cramping/spasm (possible multifactorial all or partial contributing)
home Gabapentin increased to TID as above
Lidocaine patches thigh and ankle
trial low dose baclofen
arterial CHAPARRO lower ext's appreciated no significant PAD
cont PT/OT
DVT Prophylaxis: Eliquis
Code Status: Full code
Patient's contact: his sister Kyra ([phone])
Disposition: On 09/23/24, Dr Alonzo discussed patient's case with patient's nurse, who mentioned that patient has chronic generalized weakness and chronic fecal and urinary incontinence, patient will likely need placement. Patient's sister is
absolutely against SNF and is arranging for 24 hr care for him however, the caregivers are not in place yet. Patient's sister is out of town and he can�t go home because there�s no one there.
Discussed with patient and patient's sister Kyra
I spent a total of 40 minutes with the patient or on the floor. More than 50% of this time involved counseling and coordination of care.
Anticipated Discharge: 24 - 48 hours
Subjective/Interval History
-
Date of Service: September 30, 2024
Notes improvement in right lower extremity pain. No new episodes diarrhea.
Objective Data
-
Vital Signs:
Vital Signs
Temp Pulse Resp BP Pulse Ox
98 F 57 14 108/58 95
09/29/24 23:00 09/29/24 23:00 09/29/24 23:00 09/29/24 23:00 09/29/24 23:00
I&O
09/28/24 09/29/24 09/30/24
06:59 06:59 06:59
Intake Total 1140 / 1140 360 / 360
Output Total 200 / 200
Balance 940 / 940 360 / 360
[2024-09-30] MEDS: ADVAIR HFA 45/21 MCG INHALER 2 PUFF INH ×2 (07:21→19:27)
[2024-09-30 07:27] VITALS: BP 143/72
[2024-09-30 07:39] LABS: Glucose - Point of Care 108 mg/dl (70-99)
[2024-09-30] MEDS: NOVOLOG FLEXPEN-LOW RESISTANCE SC ×2 (07:57→17:27)
[2024-09-30] MEDS: LIDOCAINE 4% PATCH 1 PATCH TOPICAL ×2 (08:32→08:33)
[2024-09-30] MEDS: LEXAPRO 20 MG PO (08:33)
[2024-09-30] MEDS: BUSPAR 10 MG PO ×2 (08:33→20:18)
[2024-09-30] MEDS: PROTONIX 40 MG PO (08:33)
[2024-09-30] MEDS: ELIQUIS 5 MG PO ×2 (08:33→20:17)
[2024-09-30] MEDS: LIORESAL 2.5 MG PO ×2 (08:33→20:18)
[2024-09-30] MEDS: TOPROL XL 25 MG PO (08:33)
[2024-09-30] MEDS: NEURONTIN 300 MG PO ×3 (08:34→20:17)
[2024-09-30] MEDS: LASIX 80 MG PO (08:34)
[2024-09-30] MEDS: REFRESH EYE DROPS (PF) 1 DROPS BOTH EYES (10:48)
[2024-09-30 11:41] LABS: Glucose - Point of Care 155 mg/dl (70-99)
[2024-09-30] MEDS: NOVOLOG FLEXPEN-LOW RESISTANCE 1 UNITS SC (13:17)
--- NOTE | 2024-09-30 13:56 | PN.CDI ---
CDI
- -
CDI:
Physician Documentation Request
Admit Date: 09/21/24 23:51
Dear Doctor Aminah,
Patient admitted with Norovirus.
09/29 PN, 'Cough/SOB resolved....-weaned off oxygen supplementation to room air- Suspected bronchitis or aspiration from vomiting....CXR with no acute findings.'
Based on the above, please provide in your note the likely diagnosis associated with the above findings:
Aspiration pneumonitis
Acute bronchitis
Other
Use of terms such as suspected, likely, concern for, or probable (associated with a specific diagnosis that is being evaluated, monitored, or treated as if it exists) are acceptable and can be coded in the inpatient setting, when documented at the
time of discharge.
Thank you,
Chasidy AVILAN,RN,CCDS
CDI Specialist
Available via [facility] text
Please use your independent medical judgment in providing your response.
[2024-09-30 15:06] VITALS: BP 139/69
[2024-09-30 16:27] LABS: Glucose - Point of Care 143 mg/dl (70-99)
[2024-09-30] MEDS: LIDOCAINE 4% PATCH 2 PATCH TOPICAL (17:30)
[2024-09-30] MEDS: LIPITOR 10 MG PO (20:17)
[2024-09-30] MEDS: MUCINEX 1200 MG PO (20:17)
[2024-09-30 22:01] LABS: Glucose - Point of Care 143 mg/dl (70-99)
[2024-09-30] MEDS: LANTUS 0.07 UNITS SC (22:13)
[2024-09-30 22:41] VITALS: PULSE 2; PULSE 71
[2024-09-30 23:15] VITALS: BP 108/57
[2024-10-01 04:07] VITALS: PULSE 2
[2024-10-01 06:00] VITALS: BMI 34.2
[2024-10-01 07:10] VITALS: BP 110/59
[2024-10-01] MEDS: ADVAIR HFA 45/21 MCG INHALER 2 PUFF INH ×2 (07:25→19:27)
[2024-10-01 07:59] LABS: Glucose - Point of Care 128 mg/dl (70-99)
--- NOTE | 2024-10-01 08:43 | W.PN.HOSP.TC ---
Today's Communication/Plan
-
PT/OT
Claritin, cepacol prn
bengay-like cream right thigh
Cont pain control
Lasix
Fluid restriction
Assessment / Plan
Assessment / Plan
Physical Exam
General: Not in acute distress
HEENT: Normocephalic
Respiratory: faint basilar crackles
Cardiac: S1/S2 and Regular Rhythm
GI: Soft, Non Tender, Non Distended and Normal Bowel Sounds
Musculoskeletal: No Cyanosis, right straight leg raise positive
Skin: Warm. Dry.
Neuro: AAO x 3
Psych: Calm
Assessment/Plan
73-year-old male past medical history of permanent atrial fibrillation on Eliquis, HFpEF, hypertension, CKD 3, restrictive lung disease, obstructive sleep apnea, diabetes, presenting with nausea and vomiting and diarrhea over the past few days after
eating lasagna at a supermarket. Also with new dry cough and acute on chronic shortness of breath intermittently. Labs initially showed leukocytosis. Renal function at baseline. Initial lactic acid of 2.4. CT abdomen pelvis showed no acute process
within the abdomen or pelvis. Chest x-ray appeared to show low lung volumes/atelectasis. Presentation consistent with acute viral gastroenteritis. IV fluids given but hold further fluids due to shortness of breath and chronic heart failure.
#Nausea/Vomiting/Diarrhea Secondary to Norovirus
#Norovirus
#Fever 100.7 F on 09/22/24 morning - RESOLVED
#Leukocytosis - RESOLVED
#Lactic Acidosis - RESOLVED
-CT Abdomen Pelvis with no acute process, showed cholelithiasis (and sludge) but no cholecystitis
-Norovirus pos, diarrhea since resolved
-Influenza and COVID negative
-Diarrhea later returned, attributed to PO mag oxide resolved with discontinuation
#SOB resolved
-Required 2 liters of oxygen in the ED
-weaned off oxygen supplementation to room air
-Suspected bronchitis or aspiration from vomiting (acute bronchitis vs aspiration pneumonitis). CXR with no acute findings
#Chronic Cough
#post-nasal drip
cont with outpt Pulm follow up, previously arranged as per pt
mucinex
Claritin
cepacol prn sore throat
#Prolonged QTc
#Borderline Low Magnesium
#Hypocalcemia
-resolved following repletions and resolution diarrhea
#CKD stage 3b
#Chronic HFpEF: recovered EF
-Bilateral lower extremities edema today.
-Lasix held given episodes of vomiting and diarrhea, since resolved, Lasix resumed
-Strict I's and O's, daily weights
-fluid restriction
#Stable small right intrarenal calculus without hydronephrosis on CT Imaging
#Cholelithiasis and sludge on CT Imaging
#Chronic prominent asymmetric elevation of the right diaphragm on Chest X-Ray
#History of Left Leg pain due to minimally Displaced Proximal Fibular Shaft Fracture
#Hyperlipidemia
-Continue statin
#Anxiety
-Lexapro, buspirone continued
#History of COPD/asthma
-Patient noted in acute exacerbation
-Fluticasone continued
#Permanent Atrial Fibrillation status post PPM
-Continue Eliquis
-Metoprolol continued with hold parameters
#Coronary Artery Disease
#Essential Hypertension
# Type 2 DM/neuropathy
-Continue Lantus/ Sliding Scale Insulins
-Accucheck
-Gabapentin continued increased from 300 mg BID to TID
-Jardiance held
#History of Kidney Stone
#Obesity due to excess calories
#Sleep apnea
-BiPAP at bedtime
#Reporting Right Ankle Pain radiating/shooting up leg
Right Ankle X-ray appreciated
-No evidence of acute fracture or dislocation.
-Small to moderate posterior calcaneal spur.
-Multiple small soft tissue calcifications within the right lower leg, greatest anteromedially, most likely on the basis of chronic venous insufficiency.
Rt Tibula/Fibula XR appreciated no acute abn's
Rt Hip and Femur XR's appreciated no acute abn's
Suspect sciatica vs neuropathy vs PAD vs muscle cramping/spasm (possible multifactorial all or partial contributing)
home Gabapentin increased to TID as above
Lidocaine patches thigh and ankle
trial low dose baclofen
arterial CHAPARRO lower ext's appreciated no significant PAD
cont PT/OT
bengay-like cream added
DVT Prophylaxis: Eliquis
Code Status: Full code
Patient's contact: his sister Kyra ([phone])
Disposition: On 09/23/24, Dr Alonzo discussed patient's case with patient's nurse, who mentioned that patient has chronic generalized weakness and chronic fecal and urinary incontinence, patient will likely need placement. Patient's sister is
absolutely against SNF and is arranging for 24 hr care for him however, the caregivers are not in place yet. Patient's sister is out of town and he can�t go home because there�s no one there.
Discussed with patient and patient's sister Kyra
I spent a total of 35 minutes with the patient or on the floor. More than 50% of this time involved counseling and coordination of care.
Anticipated Discharge: 24 - 48 hours
Subjective/Interval History
-
Date of Service: October 01, 2024
reports post-nasal drip, coughing. RLE pain improved, remains exacerbated with activity walking but most likely this is due to physical deconditioning, neuropathy and sciatica also likely contributing as well.
Objective Data
-
Vital Signs:
Vital Signs
Temp Pulse Resp BP Pulse Ox
97.8 F 74 16 110/59 95
10/01/24 07:10 10/01/24 07:28 10/01/24 07:28 10/01/24 07:10 10/01/24 07:28
I&O
09/30/24 10/01/24 10/02/24
06:59 06:59 06:59
Intake Total 1320 / 1320
Balance 1320 / 1320
--- NOTE | 2024-10-01 09:20 | PTCARENOTE ---
Patient currently asleep in bed and snoring intermittently.
[2024-10-01] MEDS: NOVOLOG FLEXPEN-LOW RESISTANCE SC ×2 (09:22→16:57)
--- NOTE | 2024-10-01 10:24 | PTCARENOTE ---
Patient sitting upright in bed feeding self breakfast.
[2024-10-01] MEDS: LIORESAL 2.5 MG PO ×2 (10:26→20:34)
[2024-10-01] MEDS: TOPROL XL 25 MG PO (10:35)
[2024-10-01] MEDS: NEURONTIN 300 MG PO ×3 (10:35→22:31)
[2024-10-01] MEDS: LASIX 80 MG PO (10:35)
[2024-10-01] MEDS: MUCINEX 1200 MG PO ×2 (10:35→20:33)
[2024-10-01] MEDS: LEXAPRO 20 MG PO (10:36)
[2024-10-01] MEDS: ELIQUIS 5 MG PO ×2 (10:36→20:33)
[2024-10-01] MEDS: TYLENOL 650 MG PO (10:36)
[2024-10-01] MEDS: BUSPAR 10 MG PO ×2 (10:37→20:33)
[2024-10-01] MEDS: PROTONIX 40 MG PO (10:37)
[2024-10-01] MEDS: LIDOCAINE 4% PATCH 1 PATCH TOPICAL ×2 (10:37→10:38)
[2024-10-01] MEDS: LIDOCAINE 4% PATCH 2 PATCH TOPICAL (10:39)
[2024-10-01] MEDS: REFRESH EYE DROPS (PF) 1 DROPS BOTH EYES (11:03)
[2024-10-01 13:19] LABS: Glucose - Point of Care 168 mg/dl (70-99)
[2024-10-01] MEDS: NOVOLOG FLEXPEN-LOW RESISTANCE 1 UNITS SC (13:35)
[2024-10-01] MEDS: ANESTHETIC LOZENGE 1 LOZENGE PO ×2 (13:38→20:35)
[2024-10-01] MEDS: CLARITIN 10 MG PO (13:38)
[2024-10-01 15:10] VITALS: BP 114/84
[2024-10-01 15:27] VITALS: PULSE 85; O2SAT 95
--- NOTE | 2024-10-01 16:00 | CM ---
Patient still requiring lasix, on fluid restriction. PT still indicating SNF at discharge if patient's family unable to arrange for 24 care.
Plan: Case management will f/u with patient's sister to determine where she is in the process of caregivers so that they are arranged for when patient is medically cleared.
[2024-10-01 16:51] LABS: Glucose - Point of Care 139 mg/dl (70-99)
[2024-10-01] MEDS: BenGay-Like 1 APPLIC TOPICAL ×2 (17:07→22:35)
[2024-10-01 22:05] LABS: Glucose - Point of Care 141 mg/dl (70-99)
[2024-10-01] MEDS: LIPITOR 10 MG PO (22:32)
[2024-10-01] MEDS: LANTUS 0.07 UNITS SC (22:33)
[2024-10-01 23:00] VITALS: BP 102/60
[2024-10-02 06:00] VITALS: BMI 33.3
[2024-10-02 07:10] VITALS: BP 142/65
[2024-10-02] MEDS: NEURONTIN 300 MG PO ×3 (07:44→21:12)
[2024-10-02] MEDS: LIORESAL 2.5 MG PO ×2 (07:44→21:14)
[2024-10-02] MEDS: ANESTHETIC LOZENGE 1 LOZENGE PO ×2 (07:44→21:15)
[2024-10-02] MEDS: LASIX 80 MG PO (07:44)
[2024-10-02] MEDS: PROTONIX 40 MG PO (07:44)
[2024-10-02] MEDS: CLARITIN 10 MG PO (07:46)
[2024-10-02] MEDS: MUCINEX 1200 MG PO ×2 (07:46→21:12)
[2024-10-02] MEDS: BUSPAR 10 MG PO ×2 (07:46→21:13)
[2024-10-02] MEDS: ELIQUIS 5 MG PO ×2 (07:46→21:13)
[2024-10-02] MEDS: LIDOCAINE 4% PATCH 1 PATCH TOPICAL ×2 (07:47→07:48)
[2024-10-02] MEDS: LEXAPRO 20 MG PO (07:47)
[2024-10-02] MEDS: TOPROL XL 25 MG PO (07:47)
[2024-10-02] MEDS: LIDOCAINE 4% PATCH 2 PATCH TOPICAL (07:48)
[2024-10-02 07:49] LABS: Glucose - Point of Care 127 mg/dl (70-99)
[2024-10-02] MEDS: NOVOLOG FLEXPEN-LOW RESISTANCE SC (07:54)
[2024-10-02] MEDS: BenGay-Like 1 APPLIC TOPICAL ×4 (07:57→21:16)
[2024-10-02] MEDS: ADVAIR HFA 45/21 MCG INHALER 2 PUFF INH ×2 (08:27→21:40)
[2024-10-02] MEDS: REFRESH EYE DROPS (PF) 1 DROPS BOTH EYES (08:30)
--- NOTE | 2024-10-02 12:18 | W.PN.HOSP.TC ---
Today's Communication/Plan
-
cont pain control
PT/OT
supportive care cough/sore throat
safe Discharge planning tomorrow home with home services, family available to assist.
Assessment / Plan
Assessment / Plan
Physical Exam
General: Not in acute distress
HEENT: Normocephalic
Respiratory: faint basilar crackles
Cardiac: S1/S2 and Regular Rhythm
GI: Soft, Non Tender, Non Distended and Normal Bowel Sounds
Musculoskeletal: No Cyanosis, right straight leg raise positive
Skin: Warm. Dry.
Neuro: AAO x 3
Psych: Calm
Assessment/Plan
73-year-old male past medical history of permanent atrial fibrillation on Eliquis, HFpEF, hypertension, CKD 3, restrictive lung disease, obstructive sleep apnea, diabetes, presenting with nausea and vomiting and diarrhea over the past few days after
eating lasagna at a supermarket. Also with new dry cough and acute on chronic shortness of breath intermittently. Labs initially showed leukocytosis. Renal function at baseline. Initial lactic acid of 2.4. CT abdomen pelvis showed no acute process
within the abdomen or pelvis. Chest x-ray appeared to show low lung volumes/atelectasis. Presentation consistent with acute viral gastroenteritis. IV fluids given but hold further fluids due to shortness of breath and chronic heart failure.
#Nausea/Vomiting/Diarrhea Secondary to Norovirus
#Norovirus
#Fever 100.7 F on 09/22/24 morning - RESOLVED
#Leukocytosis - RESOLVED
#Lactic Acidosis - RESOLVED
-CT Abdomen Pelvis with no acute process, showed cholelithiasis (and sludge) but no cholecystitis
-Norovirus pos, diarrhea since resolved
-Influenza and COVID negative
-Diarrhea later returned, attributed to PO mag oxide resolved with discontinuation
#SOB resolved
-Required 2 liters of oxygen in the ED
-weaned off oxygen supplementation to room air
-Suspected bronchitis or aspiration from vomiting (acute bronchitis vs aspiration pneumonitis). CXR with no acute findings
#Chronic Cough
#post-nasal drip
#suspect Viral URI
COVID flu neg
cont with outpt Pulm follow up, previously arranged as per pt
mucinex
Claritin
cepacol prn sore throat
#Prolonged QTc
#Borderline Low Magnesium
#Hypocalcemia
-resolved following repletions and resolution diarrhea
#CKD stage 3b
#Chronic HFpEF: recovered EF
-Bilateral lower extremities edema today.
-Lasix held given episodes of vomiting and diarrhea, since resolved, Lasix resumed
-Strict I's and O's, daily weights
-fluid restriction
#Stable small right intrarenal calculus without hydronephrosis on CT Imaging
#Cholelithiasis and sludge on CT Imaging
#Chronic prominent asymmetric elevation of the right diaphragm on Chest X-Ray
#History of Left Leg pain due to minimally Displaced Proximal Fibular Shaft Fracture
#Hyperlipidemia
-Continue statin
#Anxiety
-Lexapro, buspirone continued
#History of COPD/asthma
-Patient noted in acute exacerbation
-Fluticasone continued
#Permanent Atrial Fibrillation status post PPM
-Continue Eliquis
-Metoprolol continued with hold parameters
#Coronary Artery Disease
#Essential Hypertension
# Type 2 DM/neuropathy
-Continue Lantus/ Sliding Scale Insulins
-Accucheck
-Gabapentin continued increased from 300 mg BID to TID
-Jardiance held
#History of Kidney Stone
#Obesity due to excess calories
#Sleep apnea
-BiPAP at bedtime
#Reporting Right Ankle Pain radiating/shooting up leg
Right Ankle X-ray appreciated
-No evidence of acute fracture or dislocation.
-Small to moderate posterior calcaneal spur.
-Multiple small soft tissue calcifications within the right lower leg, greatest anteromedially, most likely on the basis of chronic venous insufficiency.
Rt Tibula/Fibula XR appreciated no acute abn's
Rt Hip and Femur XR's appreciated no acute abn's
Suspect sciatica vs neuropathy vs PAD vs muscle cramping/spasm (possible multifactorial all or partial contributing)
home Gabapentin increased to TID as above
Lidocaine patches thigh and ankle
trial low dose baclofen
arterial CHAPARRO lower ext's appreciated no significant PAD
cont PT/OT
bengay-like cream added
DVT Prophylaxis: Eliquis
Code Status: Full code
Patient's contact: his sister Kyra ([phone])
Disposition: On 09/23/24, Dr Alonzo discussed patient's case with patient's nurse, who mentioned that patient has chronic generalized weakness and chronic fecal and urinary incontinence, patient will likely need placement. Patient's sister is
absolutely against SNF and is arranging for 24 hr care for him however, the caregivers are not in place yet. Patient's sister is out of town and he can�t go home because there�s no one there.
Discussed with patient and patient's sister Kyra
I spent a total of 35 minutes with the patient or on the floor. More than 50% of this time involved counseling and coordination of care.
Anticipated Discharge: Within 24 hours
Subjective/Interval History
-
Date of Service: October 02, 2024
No acute distress sitting up comfortably in chair. Cough persists. RLE pain improved.
Objective Data
-
Vital Signs:
Vital Signs
Temp Pulse Resp BP Pulse Ox
97.5 F 74 18 142/65 95
10/02/24 07:10 10/02/24 08:31 10/02/24 08:31 10/02/24 07:10 10/02/24 08:31
I&O
10/01/24 10/02/24 10/03/24
06:59 06:59 06:59
Intake Total 1320 / 1320 2400 / 2400
Balance 1320 / 1320 2400 / 2400
[2024-10-02 12:19] LABS: Glucose - Point of Care 187 mg/dl (70-99)
[2024-10-02] MEDS: NOVOLOG FLEXPEN-LOW RESISTANCE 1 UNITS SC ×2 (12:29→17:53)
[2024-10-02 14:17] LABS: COVID-19 Antigen Negative (Negative)
[2024-10-02 15:10] VITALS: BP 90/46
[2024-10-02] MEDS: TESSALON PERLES 200 MG PO (15:56)
[2024-10-02 17:15] LABS: Glucose - Point of Care 158 mg/dl (70-99)
[2024-10-02] MEDS: LIPITOR 10 MG PO (21:14)
[2024-10-02 21:56] LABS: Glucose - Point of Care 149 mg/dl (70-99)
[2024-10-02 22:20] VITALS: PULSE 2; PULSE 71
[2024-10-02] MEDS: LANTUS 0.07 UNITS SC (22:56)
[2024-10-02 23:00] VITALS: BP 121/51
[2024-10-03 03:45] VITALS: PULSE 2
[2024-10-03 06:00] VITALS: BMI 33.9
--- NOTE | 2024-10-03 06:23 | W.PN.HOSP.TC ---
Today's Communication/Plan
-
Discharge held for evaluation worsening cough concern for possible developing pna
Likely Viral URI, planned for discharge tomorrow, home with home services, if remains stable/improves
Assessment / Plan
Assessment / Plan
Physical Exam
General: no acute distress, appears comfortable
HEENT: Normocephalic
Respiratory: Clear to auscultation b/l
Cardiac: S1/S2 and Regular Rhythm
GI: Soft, Non Tender, Non Distended and Normal Bowel Sounds
Musculoskeletal: No Cyanosis, right straight leg raise positive
Skin: Warm. Dry.
Neuro: AAO x 3
Psych: Calm
Assessment/Plan
73-year-old male past medical history of permanent atrial fibrillation on Eliquis, HFpEF, hypertension, CKD 3, restrictive lung disease, obstructive sleep apnea, diabetes, presenting with nausea and vomiting and diarrhea over the past few days after
eating lasagna at a supermarket. Also with new dry cough and acute on chronic shortness of breath intermittently. Labs initially showed leukocytosis. Renal function at baseline. Initial lactic acid of 2.4. CT abdomen pelvis showed no acute process
within the abdomen or pelvis. Chest x-ray appeared to show low lung volumes/atelectasis. Presentation consistent with acute viral gastroenteritis. IV fluids given but hold further fluids due to shortness of breath and chronic heart failure.
#Nausea/Vomiting/Diarrhea Secondary to Norovirus
#Norovirus
#Fever 100.7 F on 09/22/24 morning - RESOLVED
#Leukocytosis - RESOLVED
#Lactic Acidosis - RESOLVED
-CT Abdomen Pelvis with no acute process, showed cholelithiasis (and sludge) but no cholecystitis
-Norovirus pos, diarrhea since resolved
-Influenza and COVID negative
-Diarrhea later returned, attributed to PO mag oxide resolved with discontinuation
#SOB resolved
-Required 2 liters of oxygen in the ED
-weaned off oxygen supplementation to room air
-Suspected bronchitis or aspiration from vomiting (acute bronchitis vs aspiration pneumonitis). CXR with no acute findings
#Chronic Cough
#post-nasal drip
#likely Viral URI
COVID flu neg
cont with outpt Pulm follow up, previously arranged as per pt
mucinex
Claritin
cepacol, chloraseptic spray prn sore throat
afebrile, no significant leukocytosis, CR chest appreciated worsening left basilar atelectasis (incentive spirometer ordered)
#Prolonged QTc
#Borderline Low Magnesium
#Hypocalcemia
-resolved following repletions and resolution diarrhea
#CKD stage 3a [correction to prior documentation]
#Chronic HFpEF: recovered EF
-Bilateral lower extremities edema today.
-Lasix held given episodes of vomiting and diarrhea, since resolved, Lasix resumed
-Strict I's and O's, daily weights
-fluid restriction
#Stable small right intrarenal calculus without hydronephrosis on CT Imaging
#Cholelithiasis and sludge on CT Imaging
#Chronic prominent asymmetric elevation of the right diaphragm on Chest X-Ray
#History of Left Leg pain due to minimally Displaced Proximal Fibular Shaft Fracture
#Hyperlipidemia
-Continue statin
#Anxiety
-Lexapro, buspirone continued
#History of COPD/asthma
-Patient noted in acute exacerbation
-Fluticasone continued
#Permanent Atrial Fibrillation status post PPM
-Continue Eliquis
-Metoprolol continued with hold parameters
#Coronary Artery Disease
#Essential Hypertension
# Type 2 DM/neuropathy
-Continue Lantus/ Sliding Scale Insulins
-Accucheck
-Gabapentin continued increased from 300 mg BID to TID
#History of Kidney Stone
#Obesity due to excess calories
#Sleep apnea
-BiPAP at bedtime
#Reporting Right Ankle Pain radiating/shooting up leg
Right Ankle X-ray appreciated
-No evidence of acute fracture or dislocation.
-Small to moderate posterior calcaneal spur.
-Multiple small soft tissue calcifications within the right lower leg, greatest anteromedially, most likely on the basis of chronic venous insufficiency.
Rt Tibula/Fibula XR appreciated no acute abn's
Rt Hip and Femur XR's appreciated no acute abn's
Suspect sciatica vs neuropathy vs PAD vs muscle cramping/spasm (possible multifactorial all or partial contributing)
home Gabapentin increased to TID as above
Lidocaine patches thigh and ankle
trial low dose baclofen
arterial CHAPARRO lower ext's appreciated no significant PAD
cont PT/OT
bengay-like cream added
DVT Prophylaxis: Eliquis
Code Status: Full code
Patient's contact: his sister Kyra ([phone])
Disposition: On 09/23/24, Dr Alonzo discussed patient's case with patient's nurse, who mentioned that patient has chronic generalized weakness and chronic fecal and urinary incontinence, patient will likely need placement. Patient's sister is
absolutely against SNF and is arranging for 24 hr care for him however, the caregivers are not in place yet. Patient's sister is out of town and he can�t go home because there�s no one there.
Discussed with patient and patient's sister Kyra
I spent a total of 35 minutes with the patient or on the floor. More than 50% of this time involved counseling and coordination of care.
Anticipated Discharge: Within 24 hours
Subjective/Interval History
-
Date of Service: October 03, 2024
Reporting worsening cough and nasal congestion. Likely viral URI. Evaluated further for possible developing pna.
Objective Data
-
Vital Signs:
Vital Signs
Temp Pulse Resp BP Pulse Ox
98.2 F 57 20 121/51 96
10/02/24 23:00 10/02/24 23:00 10/02/24 23:00 10/02/24 23:00 10/02/24 23:00
I&O
12/27/24 12/28/24 12/29/24
06:59 06:59 06:59
Intake Total 1320 / 1320 2400 / 2400 1140 / 1140
Balance 1320 / 1320 2400 / 2400 1140 / 1140
[2024-10-03 07:00] VITALS: BP 111/64
[2024-10-03] MEDS: ADVAIR HFA 45/21 MCG INHALER 2 PUFF INH ×2 (07:23→19:23)
[2024-10-03 09:04] LABS: Glucose - Point of Care 113 mg/dl (70-99)
[2024-10-03] MEDS: NOVOLOG FLEXPEN-LOW RESISTANCE SC ×2 (09:09→16:21)
[2024-10-03] MEDS: CHLORASEPTIC/SORE THROAT SPRAY 1 SPRAY PO (09:16)
[2024-10-03] MEDS: TESSALON PERLES 200 MG PO (09:16)
[2024-10-03] MEDS: TOPROL XL 25 MG PO (09:19)
[2024-10-03] MEDS: LASIX 80 MG PO (09:20)
[2024-10-03] MEDS: BUSPAR 10 MG PO ×2 (09:20→20:39)
[2024-10-03] MEDS: CLARITIN 10 MG PO (09:20)
[2024-10-03] MEDS: ELIQUIS 5 MG PO ×2 (09:20→20:39)
[2024-10-03] MEDS: PROTONIX 40 MG PO ×2 (09:20→20:39)
[2024-10-03] MEDS: LEXAPRO 20 MG PO (09:20)
[2024-10-03] MEDS: MUCINEX 1200 MG PO ×2 (09:21→20:39)
[2024-10-03] MEDS: NEURONTIN 300 MG PO ×3 (09:21→22:26)
[2024-10-03] MEDS: LIORESAL 2.5 MG PO (09:21)
[2024-10-03] MEDS: LIDOCAINE 4% PATCH 1 PATCH TOPICAL ×2 (09:22→09:23)
[2024-10-03] MEDS: LIDOCAINE 4% PATCH 2 PATCH TOPICAL (09:22)
[2024-10-03] MEDS: BenGay-Like 1 APPLIC TOPICAL ×4 (09:24→22:28)
[2024-10-03 11:05] LABS: Hematocrit 33.9 % (39.0-52.0); Hemoglobin 11.1 g/dL (13.0-18.0); Mean Corp Hgb Conc. 32.7 g/dL (33.0-37.0); Mean Corpuscular Hgb 29.6 pg (27.0-31.0); Mean Corpuscular Volume 90.4 fL (80.0-94.0); Mean Platelet Volume 12.9 fL (7.4-10.4); Platelet Count 145 10^3/uL (130-400); Red Blood Cell Count 3.75 10^6/uL (4.70-6.10); Red Cell Dist. Width 14.6 % (11.5-14.5); White Blood Cell Count 6.5 10^3/uL (4.8-10.8)
[2024-10-03 11:21] LABS: Blood Urea Nitrogen 23 mg/dl (9-20); Calcium 8.4 mg/dl (8.4-10.2); Carbon Dioxide 29 mmol/L (22-30); Chloride 99 mmol/L (98-107); Estimated Creatinine Clearance 59 ml/min; Glucose 185 mg/dl (70-99); Magnesium 1.8 mg/dl (1.6-2.3); Phosphorus 3.4 mg/dl (2.5-4.5); Potassium 3.9 mmol/L (3.5-5.1); Sodium 136 mmol/L (135-145); eGFR 52.41
[2024-10-03 12:27] LABS: Glucose - Point of Care 207 mg/dl (70-99)
[2024-10-03] MEDS: NOVOLOG FLEXPEN-LOW RESISTANCE 2 UNITS SC (13:17)
--- NOTE | 2024-10-03 14:32 | RESPNOTE ---
Nebulized Normal saline given to the patient with aerosol mask as per the physician order and patient tolerated the nebulizer very well.
[2024-10-03 15:00] VITALS: BP 108/51
[2024-10-03 16:22] LABS: Glucose - Point of Care 119 mg/dl (70-99)
[2024-10-03] MEDS: LIORESAL 5 MG PO (20:39)
[2024-10-03 21:36] LABS: Glucose - Point of Care 149 mg/dl (70-99)
[2024-10-03] MEDS: LANTUS 0.07 UNITS SC (22:25)
[2024-10-03] MEDS: LIPITOR 10 MG PO (22:26)
[2024-10-03 23:13] VITALS: PULSE 2; PULSE 65
[2024-10-03 23:35] VITALS: BP 104/54
[2024-10-04] VITALS (7 sets, daily range): BP systolic 103–124; BP diastolic 43–75; PULSE 2–96; O2SAT 92; BMI 34.2
--- NOTE | 2024-10-04 06:33 | W.PN.HOSP.TC ---
Today's Communication/Plan
-
discharge
Assessment / Plan
Assessment / Plan
Physical Exam
General: no acute distress, appears comfortable
HEENT: Normocephalic
Respiratory: Clear to auscultation b/l
Cardiac: S1/S2 and Regular Rhythm
GI: Soft, Non Tender, Non Distended and Normal Bowel Sounds
Musculoskeletal: No Cyanosis, right straight leg raise positive
Skin: Warm. Dry.
Neuro: AAO x 3
Psych: Calm
Assessment/Plan
73-year-old male past medical history of permanent atrial fibrillation on Eliquis, HFpEF, hypertension, CKD 3, restrictive lung disease, obstructive sleep apnea, diabetes, presenting with nausea and vomiting and diarrhea over the past few days after
eating lasagna at a supermarket. Also with new dry cough and acute on chronic shortness of breath intermittently. Labs initially showed leukocytosis. Renal function at baseline. Initial lactic acid of 2.4. CT abdomen pelvis showed no acute process
within the abdomen or pelvis. Chest x-ray appeared to show low lung volumes/atelectasis. Presentation consistent with acute viral gastroenteritis. IV fluids given but hold further fluids due to shortness of breath and chronic heart failure.
#Nausea/Vomiting/Diarrhea Secondary to Norovirus
#Norovirus
#Fever 100.7 F on 09/22/24 morning - RESOLVED
#Leukocytosis - RESOLVED
#Lactic Acidosis - RESOLVED
-CT Abdomen Pelvis with no acute process, showed cholelithiasis (and sludge) but no cholecystitis
-Norovirus pos, diarrhea since resolved
-Influenza and COVID negative
-Diarrhea later returned, attributed to PO mag oxide resolved with discontinuation
#SOB resolved
-Required 2 liters of oxygen in the ED
-weaned off oxygen supplementation to room air
-Suspected bronchitis or aspiration from vomiting (acute bronchitis vs aspiration pneumonitis). CXR with no acute findings
#Chronic Cough
#post-nasal drip
#likely Viral URI
COVID flu neg
mucinex
Claritin
cepacol, chloraseptic spray prn sore throat
afebrile, no significant leukocytosis, CR chest repeated and noted worsening left basilar atelectasis (incentive spirometer ordered) otherwise no pneumonia or pulm edema noted
cont with outpt Pulm follow up, previously arranged as per pt
#Prolonged QTc
#Borderline Low Magnesium
#Hypocalcemia
-resolved following repletions and resolution diarrhea
#CKD stage 3a [correction to prior documentation]
#Chronic HFpEF: recovered EF
-Bilateral lower extremities edema today.
-Lasix held given episodes of vomiting and diarrhea, since resolved, Lasix resumed
-fluid restriction
#Stable small right intrarenal calculus without hydronephrosis on CT Imaging
#Cholelithiasis and sludge on CT Imaging
#Chronic prominent asymmetric elevation of the right diaphragm on Chest X-Ray
#History of Left Leg pain due to minimally Displaced Proximal Fibular Shaft Fracture
#Hyperlipidemia
-Continue statin
#Anxiety
-Lexapro, buspirone continued
#History of COPD/asthma
-Patient noted in acute exacerbation
-Fluticasone continued
#Permanent Atrial Fibrillation status post PPM
-Continue Eliquis
-Metoprolol continued with hold parameters
#Coronary Artery Disease
#Essential Hypertension
# Type 2 DM/neuropathy
-Continue Lantus/ Sliding Scale Insulins
-Accucheck
-Gabapentin continued increased from 300 mg BID to TID
#History of Kidney Stone
#Obesity due to excess calories
#Sleep apnea
-BiPAP at bedtime
#Reporting Right Ankle Pain radiating/shooting up leg
Right Ankle X-ray appreciated
-No evidence of acute fracture or dislocation.
-Small to moderate posterior calcaneal spur.
-Multiple small soft tissue calcifications within the right lower leg, greatest anteromedially, most likely on the basis of chronic venous insufficiency.
Rt Tibula/Fibula XR appreciated no acute abn's
Rt Hip and Femur XR's appreciated no acute abn's
Suspect sciatica vs neuropathy vs muscle cramping/spasm vs physical deconditioning (possible multifactorial all or partial contributing)
home Gabapentin increased to TID as above
Lidocaine patches thigh and ankle
baclofen
arterial CHAPARRO lower ext's appreciated no significant PAD
cont PT/OT
bengay-like cream added
DVT Prophylaxis: Eliquis
Code Status: Full code
Patient's contact: his sister Kyra ([phone])
Disposition: On 09/23/24, Dr Alonzo discussed patient's case with patient's nurse, who mentioned that patient has chronic generalized weakness and chronic fecal and urinary incontinence, patient will likely need placement. Patient's sister is
absolutely against SNF and is arranging for 24 hr care for him however, the caregivers are not in place yet. Patient's sister is out of town and he can�t go home because there�s no one there.
Medically stable for discharge home with home services and outpatient follow up recommendations.
Discussed with patient and patient's sister Kyra
Total Time Preparing Discharge __40 minutes including examination of the patient, summary of the hospital stay, instructions for continuing care to all relevant caregivers; and preparation of discharge records, prescriptions, and referral
forms if necessary.
Anticipated Discharge: Today (discharge)
Subjective/Interval History
-
Date of Service: October 04, 2024
No acute distress. Appears comfortable. Reports persistent cough.
Objective Data
-
Vital Signs:
Vital Signs
Temp Pulse Resp BP Pulse Ox
98.6 F 72 16 104/54 95
10/03/24 23:35 10/03/24 23:35 10/03/24 23:35 10/03/24 23:35 10/03/24 23:35
I&O
10/02/24 10/03/24 10/04/24
06:59 06:59 06:59
Intake Total 2400 / 2400 1140 / 1140 2029
Balance 2400 / 2400 1140 / 1140 2029
[2024-10-04] MEDS: ADVAIR HFA 45/21 MCG INHALER 2 PUFF INH ×2 (07:44→19:18)
[2024-10-04 07:54] LABS: Glucose - Point of Care 113 mg/dl (70-99)
[2024-10-04] MEDS: NOVOLOG FLEXPEN-LOW RESISTANCE SC ×2 (08:02→16:45)
[2024-10-04] MEDS: MUCINEX 1200 MG PO ×2 (09:36→21:02)
[2024-10-04] MEDS: NEURONTIN 300 MG PO ×3 (09:37→21:02)
[2024-10-04] MEDS: LIORESAL 5 MG PO ×2 (09:37→21:04)
[2024-10-04] MEDS: LIDOCAINE 4% PATCH 1 PATCH TOPICAL ×2 (09:37→09:38)
[2024-10-04] MEDS: ELIQUIS 5 MG PO ×2 (09:37→21:03)
[2024-10-04] MEDS: LASIX 80 MG PO (09:37)
[2024-10-04] MEDS: BUSPAR 10 MG PO ×2 (09:37→21:04)
[2024-10-04] MEDS: LEXAPRO 20 MG PO (09:37)
[2024-10-04] MEDS: TOPROL XL 25 MG PO (09:37)
[2024-10-04] MEDS: PROTONIX 40 MG PO ×2 (09:37→21:04)
[2024-10-04] MEDS: CLARITIN 10 MG PO (09:37)
[2024-10-04] MEDS: LIDOCAINE 4% PATCH 2 PATCH TOPICAL (09:38)
[2024-10-04] MEDS: BenGay-Like TOPICAL (10:04)
--- NOTE | 2024-10-04 10:17 | W.DCSUMMARY ---
Discharge Summary
Discharge Data
Date of Admission: 09/21/24
Date of Discharge: 10/05/24
-
Pending Results: No
Hospital Course
73-year-old male past medical history of permanent atrial fibrillation on Eliquis, HFpEF, hypertension, CKD 3, restrictive lung disease, obstructive sleep apnea, diabetes, presented with nausea, vomiting, and diarrhea over the past few days after
eating lasagna at a supermarket. Also with new dry cough and acute on chronic shortness of breath intermittently. Labs initially showed leukocytosis. Renal function at baseline. Initial lactic acid of 2.4. CT abdomen pelvis showed no acute process
within the abdomen or pelvis. Chest x-ray appeared to show low lung volumes/atelectasis. Presentation consistent with acute viral gastroenteritis. IV fluids given but later held due to shortness of breath and chronic heart failure.
Nausea/Vomiting/Diarrhea found to be due to Norovirus. Symptoms eventually resolved with symptomatic management. SOB resolved, Required 2 liters of oxygen in the ED, weaned off oxygen supplementation to room air, Suspected bronchitis or aspiration
from vomiting (acute bronchitis vs aspiration pneumonitis). CXR with no acute findings. Chronic Cough, post-nasal drip, likely Viral URI, COVID flu neg, mucinex, Claritin, cepacol, chloraseptic spray prn sore throat. Afebrile, no significant
leukocytosis, CR chest repeated and noted worsening left basilar atelectasis (incentive spirometer ordered) otherwise no pneumonia or pulm edema noted. Cont with outpt Pulm follow up, previously arranged as per pt. Borderline Low Magnesium and
Hypocalcemia likely due to diarrhea, resolved with repletions and resolution of diarrhea. Reporting Right Ankle Pain radiating/shooting up leg. Right Ankle X-ray appreciated no evidence of acute fracture or dislocation, small to moderate posterior
calcaneal spur, multiple small soft tissue calcifications within the right lower leg, greatest anteromedially, most likely on the basis of chronic venous insufficiency. Rt Tibula/Fibula XR appreciated no acute abn's. Rt Hip and Femur XR's
appreciated no acute abn's. Suspect sciatica vs neuropathy vs muscle cramping/spasm vs physical deconditioning (possible multifactorial all or partial contributing). Home Gabapentin was increased to TID. Lidocaine patches thigh and ankle were
prescribed. Baclofen was started. Arterial CHAPARRO lower ext's appreciated no significant PAD. Bengay-like cream was also added. On 09/23/24, Dr Alonzo discussed patient's case with patient's nurse, who mentioned that patient has chronic
generalized weakness and chronic fecal and urinary incontinence, patient will likely need placement. PT/OT also recommending snf rehab. Patient's sister absolutely against SNF and arranging for 24 hr care for him however, the caregivers are not in
place yet. Patient's sister is out of town and he can�t go home because there�s no one there. Discharge was subsequently delayed awaiting safe conditions. Medically stable, patient was discharged home with home services and outpatient follow up
recommendations.
Discharge Plan
-
Patient Disposition: Home with Home Care
Discharge Diagnosis/Procedures: Norovirus
Chronic Cough
post-nasal drip
Viral Upper Respiratory Infection (COVID Flu negative)
Prolonged QTc
Hypomagnesemia and Hypocalcemia due to diarrhea (resolved)
Chronic Kidney Disease Stage III
Chronic Heart Failure with Preserved Ejection Fraction
Hyperlipidemia
Anxiety
COPD/asthma
Permanent Atrial Fibrillation status post PPM
Coronary Artery Disease
Essential Hypertension
History Diabetes (recent A1c 5.8 at prediabetes level)
Neuropathy
Sciatica
Obesity
Sleep apnea
Left Basilar Atelectasis
Condition: Fair
Diet: Low Cholesterol, 2 Gram Sodium, Diabetic, Carb Controlled and Restrict fluids to 64 oz
Activity: With assistance, As tolerated and With Walker
Driving Restrictions: No driving
Bathing Restrictions: None
Others Tests: Repeat Chest X-ray with primary care provider or Pulmonology in 1 month of discharge.
Other Services: PT and OT
Activity Restrictions/Additional Instructions:
Please follow up with primary care provider in 1 week of discharge and pulmonology in 2 weeks of discharge.
Baclofen has been prescribed for muscle pain/cramping/spasm.
Tessalon Perle has been prescribed as needed for cough
Flonase nasal spray prescribed to help with nasal congestion, post-nasal drip (likely exacerbating cough)
Mucinex prescribed for cough, ok to stop when symptom resolves.
Lidocaine patches have been prescribed for lower back and right Leg/thigh/ankle pain
Lantus has been reduced to 7U as this has been sufficient to keep sugars under control. Novolog has been placed on hold as sugars have been well controlled without it (please follow up with primary care provider to determine when safe to resume, if
necessary to resume, and/or if an alternative agent is required instead).
Please keep a log of your sugars at home before meals and at bedtime (four times a day). Results to be discussed with your primary care provider for further evaluation management history of diabetes (most recent A1c 5.8 prediabetic level)
Please take medications as prescribed/recommended and follow up with primary care provider and/or other healthcare provider involved in your care for refills and/or further adjustment to your medication regimen as necessary.
Referrals:
Rashel Rivas MD [Active] - in two weeks
UNKNOWN - PT DOES,NOT KNOW [Family Provider] -
Prescriptions:
New
guaifenesin 600 mg Tablet Extended Release 12hr
1,200 mg PO Q12 7 Days Qty: 28 0RF
Rx Instructions:
ok to stop when symptom (coughing) resolves
benzonatate 100 mg Capsule
200 mg PO TIDPRN PRN (Reason: cough) Qty: 30 0RF
lidocaine 4 % Adhesive Patch,Medicated
1 patch topical DIRECTED Qty: 30 0RF
Rx Instructions:
Apply 2 patches to lower back, 1 patch to right thigh, 1 patch to right ankle, avoid open wounds
fluticasone propionate [Flonase Allergy Relief] 50 mcg/actuation spray,suspension
1 spray intranasal DAILY Qty: 16 0RF
Rx Instructions:
each nostril
baclofen 5 mg Tablet
5 mg PO BID 14 Days Qty: 28 0RF
Continued
atorvastatin [Lipitor] 10 mg Tablet
10 mg PO HS
escitalopram oxalate [Lexapro] 20 mg Tablet
20 mg PO DAILY
fluticasone propion-salmeterol [Wixela Inhub] 100-50 mcg/dose Blister With Device
1 inh INHALATION R BID
Eliquis 5 mg tablet
5 mg PO BID Qty: 30 0RF
gabapentin 300 mg capsule
300 mg PO BID
pantoprazole [Protonix] 40 mg Tablet,Delayed Release (Dr/Ec)
40 mg PO DAILY
buspirone 10 mg Tablet
10 mg PO BID
Refresh Classic (PF) 1.4-0.6 % dropperette
1 drops BOTH EYES QIDPRN PRN (Reason: dry eyes)
mupirocin 2 % Ointment
1 applic topical DAILY Qty: 2 0RF
metoprolol succinate 25 mg Tablet Extended Release 24 Hr
25 mg PO DAILY Qty: 30 0RF
loperamide 2 mg Capsule
2 mg PO DAILYPRN PRN (Reason: diarrhea)
furosemide 80 mg tablet
80 mg PO DAILY
Changed
polyethylene glycol 3350 [HealthyLax] 17 gram Powder In Packet
17 g PO DAILYPRN PRN (Reason: constipation) Qty: 0 0RF
insulin glargine [Lantus Solostar U-100 Insulin] 100 unit/mL (3 mL) Insulin Pen
7 unit SC HS Qty: 0 0RF
Held
insulin lispro 100 unit/mL solution
6 unit SC AC
Hold Instructions: Follow up with primary care provider to determine when safe to resume, if necessary to resume, and/or if an alternative agent is required instead.
Discharge Orders:
Discharge Patient (As Directed); Ordered 10/04/24
Ordered By: Rafat Burr
Discharge Date and Time
Discharge Date/Time: 10/05/24 11:13
Print Language: NEPALI
[2024-10-04 11:52] LABS: Glucose - Point of Care 261 mg/dl (70-99)
[2024-10-04] MEDS: NOVOLOG FLEXPEN-LOW RESISTANCE 3 UNITS SC (12:23)
[2024-10-04] MEDS: BenGay-Like 1 APPLIC TOPICAL ×3 (15:03→21:11)
--- NOTE | 2024-10-04 15:32 | CM ---
Addendum entered by JELENA Pierre 10/04/24 17:44:
Patient mentioned [facility] stating that he would like to be a resident there. Requested Chief Innovation Officer through [facility] to determine if he can get on waiting list. Patient still refusing SNF at this time.
Original Note:
Spoke with attending who stated that patient is medically cleared for discharge. Spoke with patient's sister who confirmed that his aides can be there in the morning and if he leaves tonight after dinner, she will check on him. Met with patient who
is agreeable to leaving tonight. He signed IMM. It was reviewed and placed on chart.
Completed medical necessity and transfer sheet for ambulance p/u to [facility].
RN updated.
[facility] arranged for transport.
Plan: Case management will continue to follow and assist with discharge planning. Home with [facility] and aides that are private pay.
[2024-10-04 16:39] LABS: Glucose - Point of Care 120 mg/dl (70-99)
[2024-10-04 20:04] LABS: Glucose - Point of Care 143 mg/dl (70-99)
[2024-10-04] MEDS: REFRESH EYE DROPS (PF) 1 DROPS BOTH EYES (21:01)
[2024-10-04] MEDS: LIPITOR 10 MG PO (21:03)
[2024-10-04] MEDS: LANTUS 0.07 UNITS SC (21:05)
--- NOTE | 2024-10-04 21:22 | W.PN.UPDATE ---
Addendum entered and electronically signed by Rafat Burr MD 10/05/24 08:02:
See Case Mgmt note from 10/04/24
Original Note:
Update Note
Progress Note Update
Patient and his sister are extremely concerned with patient being dropped off tonight and being home alone w/no caregiver. Patient does not want to be discharged tonight. Will arrange for discharge in the morning, patient and his sister are in
agreement as caregivers will be available for patient. Transport to be arranged for ~ 11 am.
[2024-10-04 21:34] LABS: Glucose - Point of Care 160 mg/dl (70-99)
[2024-10-05 02:47] VITALS: PULSE 2
[2024-10-05 03:00] VITALS: BP 93/41
[2024-10-05 06:00] VITALS: BMI 34.1
[2024-10-05 07:30] VITALS: BP 127/54
[2024-10-05] MEDS: ADVAIR HFA 45/21 MCG INHALER 2 PUFF INH (07:45)
[2024-10-05 08:33] LABS: Glucose - Point of Care 123 mg/dl (70-99)
[2024-10-05] MEDS: NOVOLOG FLEXPEN-LOW RESISTANCE SC (08:35)
[2024-10-05] MEDS: TOPROL XL 25 MG PO (08:57)
[2024-10-05] MEDS: CLARITIN 10 MG PO (08:57)
[2024-10-05] MEDS: LEXAPRO 20 MG PO (08:57)
[2024-10-05] MEDS: NEURONTIN 300 MG PO (08:57)
[2024-10-05] MEDS: MUCINEX 1200 MG PO (08:57)
[2024-10-05] MEDS: BUSPAR 10 MG PO (08:57)
[2024-10-05] MEDS: LASIX 80 MG PO (08:57)
[2024-10-05] MEDS: LIORESAL 5 MG PO (08:57)
[2024-10-05] MEDS: ELIQUIS 5 MG PO (08:57)
[2024-10-05] MEDS: PROTONIX 40 MG PO (08:57)
[2024-10-05] MEDS: LIDOCAINE 4% PATCH 2 PATCH TOPICAL (08:58)
[2024-10-05] MEDS: LIDOCAINE 4% PATCH 1 PATCH TOPICAL ×2 (08:58)
[2024-10-05] MEDS: BenGay-Like 1 APPLIC TOPICAL (08:59)
[2024-10-05] MEDS: REFRESH EYE DROPS (PF) 1 DROPS BOTH EYES (10:45)
--- NOTE | 2024-10-05 12:07 | W.PN.UPDATE ---
Update Note
Progress Note Update
Patient left therefore not seen
== END 2024-10-05 11:13 | disposition home health service (06) | DRG 391 ==
LOC: 3 WEST ACU 23:51
PROVIDERS: Clinical Nurse Specialist Family Health; Hospitalist; Internal Medicine; Physician Assistant; Registered Nurse; ADMITTING PHYSICIAN Hospitalist; ATTENDING PHYSICIAN Hospitalist; EMERGENCY PHYSICIAN Emergency Medicine
PROC: 5A09357 Assistance with Respiratory Ventilation, Less than 24 Consecutive Hours, Continuous Positive Airway Pressure (ICD-10-PCS; 2024-09-25)
DX: A08.11 Acute gastroenteropathy due to Norwalk agent (principal); J69.0 Pneumonitis due to inhalation of food and vomit; I50.32 Chronic diastolic (congestive) heart failure; I13.0 Hypertensive heart and chronic kidney disease with heart failure and stage 1 through stage 4 chronic kidney disease, or unspecified chronic kidney disease; I48.21 Permanent atrial fibrillation; J98.11 Atelectasis; I44.2 Atrioventricular block, complete; J44.1 Chronic obstructive pulmonary disease with (acute) exacerbation; J45.901 Unspecified asthma with (acute) exacerbation; E87.20 Acidosis, unspecified; J44.0 Chronic obstructive pulmonary disease with (acute) lower respiratory infection; J20.9 Acute bronchitis, unspecified; E83.51 Hypocalcemia; E83.42 Hypomagnesemia; N18.31 Chronic kidney disease, stage 3a; E78.5 Hyperlipidemia, unspecified; F41.9 Anxiety disorder, unspecified; J06.9 Acute upper respiratory infection, unspecified; E11.40 Type 2 diabetes mellitus with diabetic neuropathy, unspecified; E11.22 Type 2 diabetes mellitus with diabetic chronic kidney disease; E66.09 Other obesity due to excess calories; G47.33 Obstructive sleep apnea (adult) (pediatric); Z68.34 Body mass index [BMI] 34.0-34.9, adult; N20.0 Calculus of kidney; K80.20 Calculus of gallbladder without cholecystitis without obstruction; E86.0 Dehydration; R94.31 Abnormal electrocardiogram [ECG] [EKG]; I25.10 Atherosclerotic heart disease of native coronary artery without angina pectoris; F32.A Depression, unspecified; M25.571 Pain in right ankle and joints of right foot; R13.10 Dysphagia, unspecified; M54.30 Sciatica, unspecified side; Z11.52 Encounter for screening for COVID-19; Z95.0 Presence of cardiac pacemaker; Z79.4 Long term (current) use of insulin; Z79.01 Long term (current) use of anticoagulants; I87.2 Venous insufficiency (chronic) (peripheral)
CPT/HCPCS: 93308; 71046; 73502; 73552; 73590; 73600; 74177; 80048; 80053; 82040; 82962; 83036; 83605; 83690; 83735; 83880; 84100; 85025; 85027; 87045; 87046; 87324; 87427; 87449; 87502; 87798; 87811; 89055; 93005; 93321; 93325; 93922; 93925; 93971; 94640; 94660; 94761; 97110; 97116; 97162; 97166; 97530; Q9967

== ENCOUNTER 2024-12-12 08:42 | Emergency (ER) | payer MEDICARE, SELFPAY ==
[2024-12-12 08:49] VITALS: BP 151/85
[2024-12-12 09:00] VITALS: BP 140/64
[2024-12-12 09:01] VITALS: BP 140/64; BMI 33.4
--- NOTE | 2024-12-12 09:27 | ED.GENMED ---
History of Present Illness
General
Chief Complaint: Weakness
Time Seen by Provider: 12/12/24 09:07
History of Present Illness
History of Present Illness:
Patient is a 74-year-old male with history of hypertension, CHF, A-fib, diabetes, CKD presenting to the emergency department with vomiting. Patient states around 4 AM he woke up with nausea and 1 episode of emesis that was all water. He states he
has been having some vague abdominal pain. He also states that he has been having low back pain for the past few days that started after he fell a few days ago. States that he landed on his bottom which is where the pain is. Did not hit his head
or lose,. Initially he told triage that he feels weak however he denied that to me. He does state that he has peripheral neuropathy which has been flaring up. The numbness tingling is not new. No new weakness. He is wheelchair-bound. He does
state that he is compliant with his Lasix.
Past History
Past History
ED Past Medical History: Arrthythmia (Atrial fib), Asthma, CHF, COPD, HTN, IDDM, RI (Denies) and Other (Sleep apnea uses CPAP, Neuropathy, PNA, )
ED Past Surgical History: Cardiac (Pacemaker for III degree heart block), Orthopedic (Right hip surgery, Back surgery, ) and Tonsilectomy
Social History
Tobacco: Non-smoker
Alcohol: None
Personal: Single
Living: with family (Sister)
Family History
Family History: Unable to obtain
Phy Exam
Physical Exam
Physical Exam:
GENERAL: in no acute distress
HEENT: normocephalic, extraocular movements intact, moist oral mucosa
NECK: normal inspection
RESPIRATORY: no respiratory distress, clear to auscultation bilaterally
CARDIOVASCULAR: regular rate and rhythm
ABDOMEN/: soft, non-distended, diffusely tender to palpation, no rebound or guarding
EXTREMITIES: non-tender, mild edema bilaterally right worse than left which is at baseline
NEUROLOGIC: awake and alert, moves all extremities, equal strength in upper and lower extremities, normal sensation
SKIN: warm
Sepsis
Sepsis Screening
Sepsis Assessment: Sepsis Ruled Out
Sepsis Screen
Sepsis Screen: Sepsis Ruled Out
Date: 12/12/24
Time: 14:14
Course
Orders/Labs/Results
Orders:
Orders
12/12/24 09:26
Electrocardiogram (*1) Urgent
Reason for Study: Abdominal Pain
CT Abd/pelvis W Iv Cont Urgent
Comment:
Reason For Exam: nausea, diffuse abd pain, back pain
EKG- Treatment ONCE
Urinalysis Reflex To Culture Urgent
Metoclopramide [Reglan] 10 mg IV NOW STA
12/12/24 09:41
Complete Blood Count/With Diff Urgent
Comprehensive Metabolic Panel Urgent
12/12/24 09:43
0.9% Sodium Chloride 500 ml [Nss] 500 ml IV BOLUS
Abnormal Lab Results
12/12/24
09:41
RBC 4.25 L 10^6/uL
(4.70-6.10)
Hgb 12.6 L g/dL
(13.0-18.0)
Hct 38.2 L %
(39.0-52.0)
RDW 15.5 H %
(11.5-14.5)
MPV 12.9 H fL
(7.4-10.4)
Abs Immat Gran (auto) 0.2 H 10^3/uL
(0-0.05)
Absolute Neuts (auto) 8.0 H 10^3/uL
(1.4-6.5)
Immature Gran % 1.9 H %
(0-0.5)
Neutrophils % 78.8 H %
(42.2-75.2)
Lymphocytes % 12.8 L %
(20.5-51.1)
Creatinine 1.4 H mg/dL
(0.7-1.3)
Glucose 169 H mg/dl
(70-99)
Total Bilirubin 1.5 H mg/dl
(0.2-1.3)
12/12/24 09:41
12/12/24 09:41
Vital Signs
Initial and Last Documented VS:
Initial Vital Signs
Temp Pulse Resp BP Pulse Ox
98.9 F 75 22 140/64 94
12/12/24 09:01 12/12/24 09:01 12/12/24 09:01 12/12/24 09:01 12/12/24 09:01
Last Documented Vital Signs
Temp Pulse Resp BP Pulse Ox
98.9 F 75 22 140/64 94
12/12/24 09:01 12/12/24 09:01 12/12/24 09:01 12/12/24 09:01 12/12/24 09:01
MDM/Problems Addressed
Differential Diagnosis Includes:
Patient is a 74-year-old man with history of A-fib, CHF, hypertension, CKD, diabetes presenting to the emergency department with weakness and nausea. Vitals unremarkable exam does show diffuse abdominal tenderness. Differential is broad but
consists of viral gastritis versus constipation or obstruction though less likely. Regarding patient's low back pain certainly could be fracture given the fall. No red flags to suggest cauda equina or osteomyelitis/discitis. Will check blood
work urine EKG and obtain CT scan to evaluate both the abdomen and the back
*Critical Care Note
Total Time (30-74mins, 75-104mins- exclusive of procedures): Not Applicable
Update Note
Update Note:
On reevaluation patient resting comfortably. He is tolerating p.o. Blood works unremarkable. CT scan with mild acute uncomplicated colitis. Patient aware of these findings. Will hold off on any treatment at this time given that he is
well-appearing and is afebrile. Will discharge at this time
ED Attending Note
-
Portions of this chart may have been created with voice recognition software.� Occasional wrong word or��sound alike� substitutions may have occurred due to the inherent limitations of voice recognition software.
Discharge Plan
Departure
Patient Disposition: Home (Routine Discharge)
Date of Disposition: 12/12/24
Time of Disposition: 14:10
Patient with high blood pressure during this ER visit?: No
Discharge Problem:
Colitis
Instructions: Colitis - Discharge instructions
Prescriptions:
No Action
atorvastatin [Lipitor] 10 mg Tablet
10 mg PO HS
escitalopram oxalate [Lexapro] 20 mg Tablet
20 mg PO DAILY
fluticasone propion-salmeterol [Wixela Inhub] 100-50 mcg/dose Blister With Device
1 inh INHALATION R BID
Eliquis 5 mg tablet
5 mg PO BID Qty: 30 0RF
gabapentin 300 mg capsule
300 mg PO BID
pantoprazole [Protonix] 40 mg Tablet,Delayed Release (Dr/Ec)
40 mg PO DAILY
buspirone 10 mg Tablet
10 mg PO BID
insulin lispro 100 unit/mL solution
6 unit SC AC
Refresh Classic (PF) 1.4-0.6 % dropperette
1 drops BOTH EYES QIDPRN PRN (Reason: dry eyes)
mupirocin 2 % Ointment
1 applic topical DAILY Qty: 2 0RF
metoprolol succinate 25 mg Tablet Extended Release 24 Hr
25 mg PO DAILY Qty: 30 0RF
loperamide 2 mg Capsule
2 mg PO DAILYPRN PRN (Reason: diarrhea)
furosemide 80 mg tablet
80 mg PO DAILY
guaifenesin 600 mg Tablet Extended Release 12hr
1,200 mg PO Q12 7 Days Qty: 28 0RF
Rx Instructions:
ok to stop when symptom (coughing) resolves
benzonatate 100 mg Capsule
200 mg PO TIDPRN PRN (Reason: cough) Qty: 30 0RF
polyethylene glycol 3350 [HealthyLax] 17 gram Powder In Packet
17 g PO DAILYPRN PRN (Reason: constipation) Qty: 0 0RF
insulin glargine [Lantus Solostar U-100 Insulin] 100 unit/mL (3 mL) Insulin Pen
7 unit SC HS Qty: 0 0RF
lidocaine 4 % Adhesive Patch,Medicated
1 patch topical DIRECTED Qty: 30 0RF
Rx Instructions:
Apply 2 patches to lower back, 1 patch to right thigh, 1 patch to right ankle, avoid open wounds
fluticasone propionate [Flonase Allergy Relief] 50 mcg/actuation spray,suspension
1 spray intranasal DAILY Qty: 16 0RF
Rx Instructions:
each nostril
baclofen 5 mg Tablet
5 mg PO BID 14 Days Qty: 28 0RF
Referrals:
Alexander Mar MD [Family Provider] -
Discharge Date and Time
Print Language: SAO TOMEAN
[2024-12-12 09:51] LABS: % Basophils 0.8 % (0-2); % Eosinophils 1.1 % (0-6); % Immature Granulocytes 1.9 % (0-0.5); % Lymphocytes 12.8 % (20.5-51.1); % Monocytes 4.6 % (1.7-9.3); % Neutrophils 78.8 % (42.2-75.2); Absolute Basophils 0.1 10^3/uL (0-0.2); Absolute Eosinophils 0.1 10^3/uL (0-0.7); Absolute Immature Granulocytes 0.2 10^3/uL (0-0.05); Absolute Lymphocytes 1.3 10^3/uL (1.2-3.4); Absolute Monocytes 0.5 10^3/uL (0.1-0.6); Hematocrit 38.2 % (39.0-52.0); Hemoglobin 12.6 g/dL (13.0-18.0); Mean Corpuscular Hgb 29.6 pg (27.0-31.0); Mean Corpuscular Volume 89.9 fL (80.0-94.0); Mean Platelet Volume 12.9 fL (7.4-10.4); Nucleated Red Blood Cells % 0 % (-); Platelet Count 192 10^3/uL (130-400); Red Blood Cell Count 4.25 10^6/uL (4.70-6.10); Red Cell Dist. Width 15.5 % (11.5-14.5); White Blood Cell Count 10.2 10^3/uL (4.8-10.8)
[2024-12-12 10:00] VITALS: BP 140/74
[2024-12-12 10:02] LABS: ALT (SGPT) 12 U/L (0-50); AST (SGOT) 17 U/L (17-59); Albumin 3.8 g/dl (3.5-5.0); Alkaline Phosphatase 100 U/L (38-126); Blood Urea Nitrogen 20 mg/dl (9-20); Calcium 9.3 mg/dl (8.4-10.2); Carbon Dioxide 30 mmol/L (22-30); Chloride 102 mmol/L (98-107); Estimated Creatinine Clearance 56 ml/min; Glucose 169 mg/dl (70-99); Potassium 4.1 mmol/L (3.5-5.1); Sodium 140 mmol/L (135-145); Total Bilirubin 1.5 mg/dl (0.2-1.3); Total Protein 7.1 g/dl (6.3-8.2); eGFR 52.09
--- NOTE | 2024-12-12 13:25 | CM ---
Addendum entered by Ros Garcia RN 12/12/24 14:17:
CM spoke with patient's sister who stated that she will be meet patient at home at 6pm. Patient is agreeable to plan and BLS transport to home. CM updated ED physician.
Original Note:
Cm reviewed medical records. CM spoke with patient's sister Kyra. Kyra reports that patient is active with [facility]. Patient does not have an aide at this time, family is working to hire additional assistance. Kyra stated that she is working with
[facility] to secure further assistance in patient's apartment.
CM discussed with ED physician. Plan to continue further medical work up.
[2024-12-12] MEDS: NSS 500 IV (14:47)
[2024-12-12] MEDS: TYLENOL 650 MG PO (15:06)
[2024-12-12 16:42] VITALS: BP 126/62
[2024-12-12 18:51] VITALS: BP 109/56
== END 2024-12-12 18:57 | disposition home or self-care (01) ==
LOC: EMR 08:42
PROVIDERS: EMERGENCY PHYSICIAN Student in an Organized Health Care Education/Training Program; FAMILY PHYSICIAN Internal Medicine
DX: K52.9 Noninfective gastroenteritis and colitis, unspecified (principal); M54.50 Low back pain, unspecified; R11.2 Nausea with vomiting, unspecified; R10.9 Unspecified abdominal pain; R53.1 Weakness; W19.XXXA Unspecified fall, initial encounter; R60.0 Localized edema; I13.0 Hypertensive heart and chronic kidney disease with heart failure and stage 1 through stage 4 chronic kidney disease, or unspecified chronic kidney disease; I50.9 Heart failure, unspecified; N18.9 Chronic kidney disease, unspecified; I48.91 Unspecified atrial fibrillation; J44.89 Other specified chronic obstructive pulmonary disease; E11.22 Type 2 diabetes mellitus with diabetic chronic kidney disease; E11.42 Type 2 diabetes mellitus with diabetic polyneuropathy; G47.30 Sleep apnea, unspecified; I44.2 Atrioventricular block, complete; Z79.01 Long term (current) use of anticoagulants; Z95.0 Presence of cardiac pacemaker; Z87.01 Personal history of pneumonia (recurrent); Z99.3 Dependence on wheelchair
CPT/HCPCS: 99285; 96360; 74177; 80053; 85025; 93005; Q9967

== ENCOUNTER 2024-12-27 16:06 | Emergency (ER) | payer MEDICARE, SELFPAY ==
[2024-12-27] VITALS (7 sets, daily range): BP systolic 121–146; BP diastolic 57–89; BMI 34.2
[2024-12-27 17:21] LABS: Glucose - Point of Care 252 mg/dl (70-99)
--- NOTE | 2024-12-27 18:11 | ED.GENMED ---
History of Present Illness
<Imtiaz Corea DO - Last Filed: 12/29/24 15:09>
General
Chief Complaint: Abdominal Symptoms
Source: patient
Time Seen by Provider: 12/27/24 17:50
History of Present Illness
History of Present Illness:
74-year-old male presents to the emergency room complaining of nausea and vomiting. Patient states that when he consumes food he vomits shortly thereafter. He is able to tolerate liquids. He vomits its mostly clear liquid and not necessarily the
food that he consumed. He at times feels mildly short of breath but currently he does not. He denies chest pain. Patient also complaining of increased severity of his peripheral neuropathy. He has been taking gabapentin which has not been
adequately alleviating his symptoms. He had been on baclofen after being discharged in the hospital in October. His primary care doctor who is in [place] has not renewed it. He is switching family doctors to Dr. Kim in the near future.
Patient denies any constipation or diarrhea. Patient denies any change in his medications over the past month. He lives alone in an apartment. He does have visiting nurses check on him and that is who encouraged him to come to the emergency room
for evaluation. Patient has had a wound on his right lower extremity for the past week. Unclear how this developed. Patient denies any fever or chills.
Past History
<DO Roger Ramachandran Last Filed: 12/29/24 15:09>
Past History
ED Past Medical History: Arrthythmia (Atrial fib), Asthma, CHF, COPD, HTN, IDDM, [place] (Denies) and Other (Sleep apnea uses CPAP, Neuropathy, PNA, )
ED Past Surgical History: Cardiac (Pacemaker for III degree heart block), Orthopedic (Right hip surgery, Back surgery, ) and Tonsilectomy
Social History
Tobacco: Non-smoker
Alcohol: None
Personal: Single
Living: with family (Sister)
Family History
Family History: Unable to obtain
Phy Exam
<Imtiaz Corea, DO - Last Filed: 12/29/24 15:09>
Physical Exam
Physical Exam:
General: Awake, Alert, Oriented X3. No acute distress, age, chronically ill
Vitals: unremarkable
Head: Atraumatic
Eyes: Pupils equal, EOMI
Throat: Airway intact, no exudates, dry mucosa
Neck: Trachea midline
Lungs: Clear and equal b/l
Heart: Regular rate, no murmurs
Abd: Soft, Nontender, No pulsatile mass
Neuro: Cranial nerves intact, muscle strength equal bilaterally, cerebellar exam normal
Skin: Warm, dry, no rash
Extremities: pulses equal b/l, changes of chronic venous stasis bilaterally, 1 cm x 2 cm superficial wound noted in the mid right tibia region. There is mild erythema surrounding this. No purulent discharge.
Course
<Imtiaz Corea, DO - Last Filed: 12/29/24 15:09>
Orders/Labs/Results
Orders:
Orders
12/27/24 18:10
Electrocardiogram (*1) Urgent
Reason for Study: Fatigue / Weakness
0.9% Sodium Chloride 500 ml [Nss] 500 ml IV BOLUS
12/27/24 18:11
EKG- Treatment ONCE
12/27/24 18:17
CR Chest - 2 Views Urgent
Comment:
Reason For Exam: sob, nausea
12/27/24 18:45
CMP [Comprehensive Metabolic Panel] Urgent
Complete Blood Count/With Diff Urgent
Lipase Urgent
12/27/24 19:38
NT-proBNP Urgent
Troponin I Urgent
12/27/24 21:37
Urinalysis Reflex To Culture Urgent
Date Specimen was Collected: 12/27/24
Time Specimen was Collected: 21:31
12/27/24 23:04
Case Management Consult ONCE
Case Management Consult: Discharge Planning
12/27/24 23:20
Morphine Sulfate 4 mg IV NOW STA
12/27/24 23:43
CeFAZolin 1 GRAM [Ancef] 1 gram in 5 ml IV NOW
12/27/24 23:45
CeFAZolin 1 GRAM [Ancef] 1 gram in 5 ml IV Q8H
12/28/24 00:13
Propofol [Diprivan] 20 ml .ROUTE .STK-MED
12/28/24 10:00
CeFAZolin 1 GRAM [Ancef] 1 gram in 5 ml IV Q8H
Abnormal Lab Results
12/27/24 12/27/24
17:19 18:45
RBC 3.94 L 10^6/uL
(4.70-6.10)
Hgb 11.8 L g/dL
(13.0-18.0)
Hct 35.9 L %
(39.0-52.0)
MCHC 32.9 L g/dL
(33.0-37.0)
RDW 15.8 H %
(11.5-14.5)
MPV 12.9 H fL
(7.4-10.4)
Abs Immat Gran (auto) 0.1 H 10^3/uL
(0-0.05)
Immature Gran % 0.9 H %
(0-0.5)
Sodium 146 H mmol/L
(135-145)
Carbon Dioxide 34 H mmol/L
(22-30)
BUN 22 H mg/dl
(9-20)
Creatinine 1.4 H mg/dL
(0.7-1.3)
Glucose 173 H mg/dl
(70-99)
AST 16 L U/L
(17-59)
POC Glucose 252 H mg/dl
(70-99)
12/27/24 18:45
12/27/24 18:45
Vital Signs
Initial and Last Documented VS:
Initial Vital Signs
Temp Pulse Resp BP Pulse Ox
98.5 F 73 20 124/73 95
12/27/24 16:11 12/27/24 16:11 12/27/24 16:11 12/27/24 16:11 12/27/24 16:11
Last Documented Vital Signs
Temp Pulse Resp BP Pulse Ox
98.2 F 64 18 118/74 98
12/28/24 15:17 12/28/24 15:17 12/28/24 15:17 12/28/24 15:17 12/28/24 15:17
<Cale Roberts, DO - Last Filed: 12/27/24 23:24>
Orders/Labs/Results
Orders:
Orders
12/27/24 18:10
Electrocardiogram (*1) Urgent
Reason for Study: Fatigue / Weakness
0.9% Sodium Chloride 500 ml [Nss] 500 ml IV BOLUS
12/27/24 18:11
EKG- Treatment ONCE
12/27/24 18:17
CR Chest - 2 Views Urgent
Comment:
Reason For Exam: sob, nausea
12/27/24 18:45
CMP [Comprehensive Metabolic Panel] Urgent
Complete Blood Count/With Diff Urgent
Lipase Urgent
12/27/24 19:38
NT-proBNP Urgent
Troponin I Urgent
12/27/24 21:37
Urinalysis Reflex To Culture Urgent
Date Specimen was Collected: 12/27/24
Time Specimen was Collected: 21:31
12/27/24 23:04
Case Management Consult ONCE
Case Management Consult: Discharge Planning
12/27/24 23:20
Morphine Sulfate 4 mg IV NOW STA
12/27/24 23:43
CeFAZolin 1 GRAM [Ancef] 1 gram in 5 ml IV NOW
12/27/24 23:45
CeFAZolin 1 GRAM [Ancef] 1 gram in 5 ml IV Q8H
12/28/24 00:13
Propofol [Diprivan] 20 ml .ROUTE .STK-MED
12/28/24 10:00
CeFAZolin 1 GRAM [Ancef] 1 gram in 5 ml IV Q8H
Abnormal Lab Results
12/27/24 12/27/24
17:19 18:45
RBC 3.94 L 10^6/uL
(4.70-6.10)
Hgb 11.8 L g/dL
(13.0-18.0)
Hct 35.9 L %
(39.0-52.0)
MCHC 32.9 L g/dL
(33.0-37.0)
RDW 15.8 H %
(11.5-14.5)
MPV 12.9 H fL
(7.4-10.4)
Abs Immat Gran (auto) 0.1 H 10^3/uL
(0-0.05)
Immature Gran % 0.9 H %
(0-0.5)
Sodium 146 H mmol/L
(135-145)
Carbon Dioxide 34 H mmol/L
(22-30)
BUN 22 H mg/dl
(9-20)
Creatinine 1.4 H mg/dL
(0.7-1.3)
Glucose 173 H mg/dl
(70-99)
AST 16 L U/L
(17-59)
POC Glucose 252 H mg/dl
(70-99)
12/27/24 18:45
12/27/24 18:45
Vital Signs
Initial and Last Documented VS:
Initial Vital Signs
Temp Pulse Resp BP Pulse Ox
98.5 F 73 20 124/73 95
12/27/24 16:11 12/27/24 16:11 12/27/24 16:11 12/27/24 16:11 12/27/24 16:11
Last Documented Vital Signs
Temp Pulse Resp BP Pulse Ox
98.2 F 64 18 118/74 98
12/28/24 15:17 12/28/24 15:17 12/28/24 15:17 12/28/24 15:17 12/28/24 15:17
<Imtiaz Corea, DO - Last Filed: 12/29/24 15:09>
*Critical Care Note
Total Time (30-74mins, 75-104mins- exclusive of procedures): Not Applicable
<Cale Roberts, DO - Last Filed: 12/27/24 23:24>
Update Note
Update Note:
11:20 PM care of patient was was transitioned earlier in the night pending urinalysis. Patient complaining of neuropathy in his legs at his not being treated appropriately with gabapentin, per patient. He is also concerned about infection of his
right leg. The cellulitic changes of his right leg are superficial and minimal. Urinalysis negative. Patient requesting to be admitted for convenience sake since he cannot get into his house until tomorrow night. I discussed with patient that he
would be observation status and he would not meet inpatient criteria. Will start IV Ancef in the emergency department and have case management evaluate in the morning to discuss disposition
ED Attending Note
<Imtiaz Corea, DO - Last Filed: 12/29/24 15:09>
-
Portions of this chart may have been created with voice recognition software.� Occasional wrong word or��sound alike� substitutions may have occurred due to the inherent limitations of voice recognition software.
Discharge Plan
Departure
Patient Disposition: Home (Routine Discharge)
Date of Disposition: 12/27/24
Time of Disposition: 23:24
Patient with high blood pressure during this ER visit?: No
Condition: Good
Discharge Problem:
Peripheral neuropathy, Nausea, Open wound of right lower extremity
Instructions: Peripheral neuropathy, Wound care - ED discharge instructions
Prescriptions:
New
cephalexin 500 mg capsule
500 mg PO QID 7 Days Qty: 28 0RF
No Action
atorvastatin [Lipitor] 10 mg Tablet
10 mg PO HS
escitalopram oxalate [Lexapro] 20 mg Tablet
20 mg PO DAILY
Eliquis 5 mg tablet
5 mg PO BID Qty: 30 0RF
gabapentin 300 mg capsule
300 mg PO BID
pantoprazole [Protonix] 40 mg Tablet,Delayed Release (Dr/Ec)
40 mg PO DAILY
buspirone 10 mg Tablet
10 mg PO BID
Refresh Classic (PF) 1.4-0.6 % dropperette
1 drops BOTH EYES QIDPRN PRN (Reason: dry eyes)
metoprolol succinate 25 mg Tablet Extended Release 24 Hr
25 mg PO DAILY Qty: 30 0RF
furosemide 80 mg tablet
80 mg PO DAILY
polyethylene glycol 3350 [HealthyLax] 17 gram Powder In Packet
17 g PO DAILYPRN PRN (Reason: constipation) Qty: 0 0RF
baclofen 5 mg Tablet
5 mg PO BID 14 Days Qty: 28 0RF
insulin lispro 100 unit/mL Insulin Pen
6 sliding scale dose SC AC
ondansetron 4 mg tablet,disintegrating
4 mg PO Q8HPRN PRN (Reason: nausea and vomiting)
insulin glargine [Lantus Solostar U-100 Insulin] 100 unit/mL (3 mL) insulin pen
7 - 15 unit SC HS
Referrals:
Alexander Mar MD [Family Provider] - Follow up in 5-7 days
Interventions
Interventions:
*Risk Screen - Suicide Last Done: 12/27/24 16:11
*General Assessment Last Done: 12/27/24 16:11
*Neglect/Abuse Screening Last Done: 12/28/24 05:46
*ED- Fall Risk Assessment Last Done: 12/28/24 05:46
*ED COVID-19 Vaccine History Last Done: 12/28/24 05:48
*Nursing Disposition Last Done: 12/28/24 15:17
AQ-Pyxuli-Kdehevemoq Assessment Last Done: 12/27/24 18:30
Discharge Date and Time
Print Language: CAPE VERDEAN
[2024-12-27 18:53] LABS: % Basophils 0.9 % (0-2); % Eosinophils 2.9 % (0-6); % Immature Granulocytes 0.9 % (0-0.5); % Lymphocytes 25.3 % (20.5-51.1); % Monocytes 7.4 % (1.7-9.3); % Neutrophils 62.6 % (42.2-75.2); Absolute Basophils 0.1 10^3/uL (0-0.2); Absolute Eosinophils 0.2 10^3/uL (0-0.7); Absolute Immature Granulocytes 0.1 10^3/uL (0-0.05); Absolute Lymphocytes 2.1 10^3/uL (1.2-3.4); Absolute Monocytes 0.6 10^3/uL (0.1-0.6); Absolute Neutrophils 5.1 10^3/uL (1.4-6.5); Hematocrit 35.9 % (39.0-52.0); Hemoglobin 11.8 g/dL (13.0-18.0); Mean Corp Hgb Conc. 32.9 g/dL (33.0-37.0); Mean Corpuscular Hgb 29.9 pg (27.0-31.0); Mean Corpuscular Volume 91.1 fL (80.0-94.0); Mean Platelet Volume 12.9 fL (7.4-10.4); Nucleated Red Blood Cells % 0 % (-); Platelet Count 203 10^3/uL (130-400); Red Blood Cell Count 3.94 10^6/uL (4.70-6.10); Red Cell Dist. Width 15.8 % (11.5-14.5); White Blood Cell Count 8.2 10^3/uL (4.8-10.8)
[2024-12-27 19:07] LABS: ALT (SGPT) 12 U/L (0-50); AST (SGOT) 16 U/L (17-59); Albumin 3.8 g/dl (3.5-5.0); Alkaline Phosphatase 74 U/L (38-126); Blood Urea Nitrogen 22 mg/dl (9-20); Carbon Dioxide 34 mmol/L (22-30); Chloride 105 mmol/L (98-107); Glucose 173 mg/dl (70-99); Lipase 97 U/L (23-300); Potassium 4.1 mmol/L (3.5-5.1); Sodium 146 mmol/L (135-145); Total Bilirubin 0.9 mg/dl (0.2-1.3); Total Protein 6.8 g/dl (6.3-8.2); eGFR 52.09
[2024-12-27] MEDS: NSS 500 IV (19:10)
[2024-12-27 20:15] LABS: NT-proBNP 658 pg/ml; Troponin I < 0.012 ng/ml
[2024-12-27 21:48] LABS: Urine Albumin Negative (Neg - Trace); Urine Bilirubin Negative (Negative); Urine Character Clear (Clear); Urine Color Yellow; Urine Glucose Negative (Negative); Urine Ketone Negative (Negative); Urine Leukocyte Negative (Negative); Urine Nitrite Negative (Negative); Urine Occult Blood Negative (Negative); Urine Urobilinogen Negative (Neg - 1+)
[2024-12-27] MEDS: MORPHINE SULFATE 4 MG IV (23:43)
[2024-12-27] MEDS: ANCEF 5 IV (23:49)
[2024-12-28] VITALS: BP 121/56
[2024-12-28 01:00] VITALS: BP 112/57
[2024-12-28 05:48] VITALS: BP 120/61
--- NOTE | 2024-12-28 09:31 | PHANOTE ---
med rec note- patient waiting for case manger from last night (12/27/24), patient stated he came with a home medication list, unable to locate since patient was in two different ed rooms, also try to go over meds list on file from 09/2024 but patient
can not remember most of his. patient ecw is random 08/2024 and then 02/2024, no pdmp and no family.
--- NOTE | 2024-12-28 10:17 | CM ---
Patient seen at bedside
IA complete
Lives in an apartment alone, elevator access
Has private caregivers Fri & Sat - sister's also assist
PLOF: Wheelchair, walker
DME: Wheelchair, walker, shower chair
Patient is current with VN - liaison [place] aware
Will resume care
Spoke with sister Kyra
[facility] transportation forms on clipboard, request 3pm transport as brother in law will be at apt at 3:30pm
[2024-12-28] MEDS: ANCEF 5 IV (10:56)
--- NOTE | 2024-12-28 14:00 | PTCARENOTE ---
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 Pt seen by CM and VN - already has VN set up at home. Pt ate 100% of breakfast and lunch - no N/V. Pt asking to be given gowns/socks/linens to take home w/ him - request denied.
[2024-12-28 15:17] VITALS: BP 118/74
== END 2024-12-28 15:17 | disposition home or self-care (01) ==
LOC: EMR 16:06
PROVIDERS: Emergency Medicine; EMERGENCY PHYSICIAN Emergency Medicine; FAMILY PHYSICIAN Internal Medicine
DX: R11.2 Nausea with vomiting, unspecified (principal); S81.801A Unspecified open wound, right lower leg, initial encounter; X58.XXXA Exposure to other specified factors, initial encounter; I48.91 Unspecified atrial fibrillation; J44.89 Other specified chronic obstructive pulmonary disease; E11.9 Type 2 diabetes mellitus without complications; I44.2 Atrioventricular block, complete; E11.40 Type 2 diabetes mellitus with diabetic neuropathy, unspecified; I87.8 Other specified disorders of veins; I11.0 Hypertensive heart disease with heart failure; I50.9 Heart failure, unspecified; G47.30 Sleep apnea, unspecified; I25.2 Old myocardial infarction; Z79.4 Long term (current) use of insulin; Z79.01 Long term (current) use of anticoagulants; Z95.0 Presence of cardiac pacemaker; Z87.01 Personal history of pneumonia (recurrent)
CPT/HCPCS: 71046; 80053; 81003; 82962; 83690; 83880; 84484; 85025; 93005; 96361; 96374; 96375; 96376; 99284

== ENCOUNTER 2025-02-05 16:42 | Observation (INO) | payer MEDICARE, SELFPAY ==
[2025-02-05] VITALS (12 sets, daily range): BP systolic 121–157; BP diastolic 64–99; PULSE 2–76; O2SAT 97; BMI 33.5
--- NOTE | 2025-02-05 14:17 | ED.GENMED ---
History of Present Illness
General
Chief Complaint: Weakness
Source: patient
Exam Limitations: none
Time Seen by Provider: 02/05/25 14:05
History of Present Illness
History of Present Illness:
See MDM
Past History
Past History
ED Past Medical History: Arrthythmia (Atrial fib), Asthma, CHF, COPD, HTN, IDDM, [place] (Denies) and Other (Sleep apnea uses CPAP, Neuropathy, PNA, )
ED Past Surgical History: Cardiac (Pacemaker for III degree heart block), Orthopedic (Right hip surgery, Back surgery, ) and Tonsilectomy
Social History
Tobacco: Non-smoker
Alcohol: None
Personal: Single
Living: with family (Sister)
Family History
Family History: Unable to obtain
Phy Exam
Physical Exam
Physical Exam:
See MDM
Course
Orders/Labs/Results
Orders:
Orders
02/05/25 14:00
ECG [Electrocardiogram (*1)] Urgent
Reason for Study: Shortness of Breath
EKG- Treatment ONCE
02/05/25 14:13
BNP [NT-proBNP] Urgent
Complete Blood Count/With Diff Urgent
Comprehensive Metabolic Panel Urgent
Troponin I Urgent
02/05/25 14:14
0.9% Sodium Chloride 1000 ml [Nss] 1,000 ml IV BOLUS
Lorazepam [Ativan] 0.5 mg IV NOW STA
02/05/25 14:15
CR Chest Portable - 1 View Urgent
Comment:
Reason For Exam: SOB
Reason Study Needs to be Portable: Unable to Transport
02/05/25 15:24
Lorazepam [Ativan] 0.5 mg IV NOW STA
02/05/25 15:35
Case Management Consult ONCE
Case Management Consult: Discharge Planning
Pt Eval And Treat Urgent
Activity Level: Ambulate
02/05/25 15:51
Add On- LAB Urgent
Tests Added?: lipase
Stool For WBC Urgent
CHAD Source: Feces/Stool
Specimen Description:
Ot Eval And Treat Routine
02/05/25 15:52
C difficile Antigen & Toxins Urgent
CHAD Source: Feces/Stool
Specimen Description:
02/05/25 16:04
Add On- LAB Routine
Tests Added?: LDH, direct bili, retics
Admit/Transfer Patient As Directed
Co-Sign Provider:
Level of Care: Observation services
Assign to:: Telemetry
Physician / Group: Roger
Diagnosis: ambulatory deficiency
Reason for Telemetry: Arrhythmia
Date to Stop Telemetry: 02/08/25
Time to Stop Telemetry: 11:00
PRN Pain Medication Management As Directed
May give lesser potent ordered pain med per pt: Yes
preference::
Protocol:: Medication orders for pain may be administered in a
manner that supports deferring to patient preference
when the pt is:
- Requesting an ordered lesser potent pain medication.
Least to most potent pain medications are defined
as: acetaminophen < NSAID < tramadol < opioids
(morphine, oxycodone, hydromorphone).
- Requesting a lesser dose of the same medication IF
ORDERED.
- Requesting a less intrusive route of administration
if both routes are prescribed by the provider (PO <
IV).
02/05/25 16:06
Code Status As Directed
Resuscitation Status: Full Code
02/06/25 06:00
Cortisol, Random IN AM
TSH Reflex To Free T4 IN AM
02/08/25 11:00
DC Protocol for Telemetry ONCE
Abnormal Lab Results
02/05/25
14:13
RBC 3.88 L 10^6/uL
(4.70-6.10)
Hgb 12.0 L g/dL
(13.0-18.0)
Hct 34.4 L %
(39.0-52.0)
RDW 15.4 H %
(11.5-14.5)
MPV 13.2 H fL
(7.4-10.4)
Abs Immat Gran (auto) 0.1 H 10^3/uL
(0-0.05)
Absolute Neuts (auto) 6.9 H 10^3/uL
(1.4-6.5)
Absolute Monos (auto) 0.7 H 10^3/uL
(0.1-0.6)
Immature Gran % 1.1 H %
(0-0.5)
Lymphocytes % 17.6 L %
(20.5-51.1)
Glucose 137 H mg/dl
(70-99)
Total Bilirubin 1.5 H mg/dl
(0.2-1.3)
Albumin 3.4 L g/dl
(3.5-5.0)
02/05/25 14:13
02/05/25 14:13
Vital Signs
Initial and Last Documented VS:
Initial Vital Signs
Temp Pulse Resp BP Pulse Ox
98.5 F 86 20 121/69 95
02/05/25 14:02 02/05/25 14:02 02/05/25 14:02 02/05/25 14:02 02/05/25 14:02
Last Documented Vital Signs
Temp Pulse Resp BP Pulse Ox
98.5 F 86 20 121/69 95
02/05/25 14:02 02/05/25 14:02 02/05/25 14:02 02/05/25 14:02 02/05/25 14:02
MDM/Problems Addressed
Differential Diagnosis Includes:
HPI and MDM Narrative:
74-year-old male presenting with generalized weakness and fatigue. Patient has been evaluated multiple times for generalized weakness which he required rehab stay. He complains of persistent diarrhea. He does live alone and uses his wheelchair.
He states he is having trouble transitioning to his walker and is having transitioning to the shower seat. Patient states he is unable to care for himself and this state
Physical exam
General: Weak on deconditioned
HEENT: protecting airway. Dry mucous membranes
Neck: appears supple
CV: No evidence of cyanosis
Resp: No accessory muscle use
Abd: Non-distended. Soft and nontender
Extremities: +1 pitting edema bilateral extremities
Neuro: alert
Psych: Normal affect
Skin: Intact
Problems Addressed including Acute and Chronic Conditions affecting care:
1. Generalized weakness
Acuity: acute
Prognosis: stable
Details: Likely in setting of dehydration and deconditioning. Will obtain basic blood work
2. Diarrhea
Acuity: acute
Prognosis: stable
Details: If patient can provide sample, will obtain stool culture
Updates
Chest x-ray clear. Blood work without significant abnormalities. Given his inability to appropriately perform activities of daily living, will admit for case management and PT
I had case management PT evaluate at bedside but they are unable to place for the emergency department today.
Differential Diagnosis (but not limited to): viral syndrome, deconditioning, dehydration
Testing considered: CT abdomen/pelvis but he has no abdominal tenderness
Drug therapy (if applicable): OTC meds, please see d/c instruction regarding Rx drugs
Amount and/or Complexity of Data Reviewed
Clinical info obtained from: Patient
External data reviewed: N/A
Labs I independently reviewed (but not limited to): White blood cell count normal
Radiology: X-ray independently reviewed: Chest x-ray clear
Pulse Ox: not hypoxic
EKG independently reviewed: N/A
Hydrology Professor: N/A
Critical Care: N/A
Risk of Complication:
Social Determinants of health: Good social support
Discussed with other providers: Hospitalist
Escalation of Care includes Admit/Obs: Given his inability to appropriately perform activities of daily living, will admit for PT and case management
Occasional wrong word or 'sound a like' substitutions may have occurred due to the inherent limitations of voice recognition software. Read the chart carefully and recognize, using context, where substitutions have occurred.
*Critical Care Note
Total Time (30-74mins, 75-104mins- exclusive of procedures): Not Applicable
ED Attending Note
-
Portions of this chart may have been created with voice recognition software.� Occasional wrong word or��sound alike� substitutions may have occurred due to the inherent limitations of voice recognition software.
Discharge Plan
Departure
Patient Disposition: Admit
Date of Disposition: 02/05/25
Time of Disposition: 15:25
Admit to: Med/Surg
Presentation/result/management discussed w/ accepting MD/DO: Hospitalist
Discharge Problem:
Weakness
Prescriptions:
No Action
atorvastatin [Lipitor] 10 mg Tablet
10 mg PO HS
escitalopram oxalate [Lexapro] 20 mg Tablet
20 mg PO DAILY
Eliquis 5 mg tablet
5 mg PO BID Qty: 30 0RF
gabapentin 300 mg capsule
300 mg PO BID
pantoprazole [Protonix] 40 mg Tablet,Delayed Release (Dr/Ec)
40 mg PO DAILY
buspirone 10 mg Tablet
10 mg PO BID
Refresh Classic (PF) 1.4-0.6 % dropperette
1 drops BOTH EYES QIDPRN PRN (Reason: dry eyes)
metoprolol succinate 25 mg Tablet Extended Release 24 Hr
25 mg PO DAILY Qty: 30 0RF
furosemide 80 mg tablet
80 mg PO DAILY
polyethylene glycol 3350 [HealthyLax] 17 gram Powder In Packet
17 g PO DAILYPRN PRN (Reason: constipation) Qty: 0 0RF
baclofen 5 mg Tablet
5 mg PO BID 14 Days Qty: 28 0RF
insulin lispro 100 unit/mL Insulin Pen
6 sliding scale dose SC AC
ondansetron 4 mg tablet,disintegrating
4 mg PO Q8HPRN PRN (Reason: nausea and vomiting)
insulin glargine [Lantus Solostar U-100 Insulin] 100 unit/mL (3 mL) insulin pen
7 - 15 unit SC HS
cephalexin 500 mg capsule
500 mg PO QID 7 Days Qty: 28 0RF
Referrals:
Boris Kim MD [Family Provider] -
Interventions
Interventions:
*Risk Screen - Suicide Last Done: 02/05/25 14:02
*General Assessment Last Done: 02/05/25 14:02
*Neglect/Abuse Screening Last Done: 02/05/25 14:02
ED- Cardiac Assessment Last Done: 02/05/25 14:02
ED- Neurological Assessment Last Done: 02/05/25 14:02
ED- Pulmonary Assessment Last Done: 02/05/25 14:02
Discharge Date and Time
Print Language: CROATIAN
[2025-02-05] MEDS: NSS 1000 IV (14:25)
[2025-02-05] MEDS: ATIVAN 0.5 MG IV ×2 (14:26→15:45)
[2025-02-05 14:31] LABS: % Basophils 0.6 % (0-2); % Eosinophils 2.8 % (0-6); % Immature Granulocytes 1.1 % (0-0.5); % Lymphocytes 17.6 % (20.5-51.1); % Monocytes 6.8 % (1.7-9.3); % Neutrophils 71.1 % (42.2-75.2); Absolute Basophils 0.1 10^3/uL (0-0.2); Absolute Eosinophils 0.3 10^3/uL (0-0.7); Absolute Immature Granulocytes 0.1 10^3/uL (0-0.05); Absolute Lymphocytes 1.7 10^3/uL (1.2-3.4); Absolute Monocytes 0.7 10^3/uL (0.1-0.6); Absolute Neutrophils 6.9 10^3/uL (1.4-6.5); Hematocrit 34.4 % (39.0-52.0); Mean Corp Hgb Conc. 34.9 g/dL (33.0-37.0); Mean Corpuscular Hgb 30.9 pg (27.0-31.0); Mean Corpuscular Volume 88.7 fL (80.0-94.0); Mean Platelet Volume 13.2 fL (7.4-10.4); Nucleated Red Blood Cells % 0 % (-); Platelet Count 163 10^3/uL (130-400); Red Blood Cell Count 3.88 10^6/uL (4.70-6.10); Red Cell Dist. Width 15.4 % (11.5-14.5); White Blood Cell Count 9.7 10^3/uL (4.8-10.8)
[2025-02-05 14:47] LABS: ALT (SGPT) 11 U/L (0-50); AST (SGOT) 17 U/L (17-59); Albumin 3.4 g/dl (3.5-5.0); Alkaline Phosphatase 87 U/L (38-126); Blood Urea Nitrogen 15 mg/dl (9-20); Calcium 9.1 mg/dl (8.4-10.2); Carbon Dioxide 26 mmol/L (22-30); Chloride 105 mmol/L (98-107); Estimated Creatinine Clearance 66 ml/min; Glucose 137 mg/dl (70-99); Potassium 4.1 mmol/L (3.5-5.1); Sodium 139 mmol/L (135-145); Total Bilirubin 1.5 mg/dl (0.2-1.3); Total Protein 6.4 g/dl (6.3-8.2); eGFR > 60.00
[2025-02-05 14:53] LABS: NT-proBNP 476 pg/ml; Troponin I < 0.012 ng/ml
--- NOTE | 2025-02-05 15:58 | CM ---
Addendum entered by Selene Restrepo 02/05/25 16:12:
Call from sister and brother in-law
Pt has a hospital bed,commode, and shower chair
They provide a private suty aide 3x weekly Fri/Sat and Mon
JAMES is there on other days 3x times daily to assist pt
Sister and JAMES noted that pt can return home tomorrow under their care
Private duty has left for the day and they are out of town
He will need to be home by 4PM tomorrow if they are to take him home
Original Note:
ED CM consult for SNF placement
Bedside meeting with pt
He resides alone in a apartment with elevator access
Pt is indep with transfers from bed/chair and able to self propel wheelchair
He is able to stand/pivot- unable to ambulate
He only bathes with assistance
Has private duty 2x weekly Fri/Sat and his brother in-law assists as well
His sister providers assistance with errands and shopping
He is current with [facility]
Discussion with Dr Duran
OT order requested as pt will require auth for SNF
Pt would like to dc home but is in agreement with SNF referrals
[employer] [facility] sent via [facility] and all pending
VM left for sister/Kyra with update
Discharge Disposition- anticipate SNF pending auth
--- NOTE | 2025-02-05 16:10 | HPS.HSE ---
Family Physician
-
Family Physician: Boris Kim
Chief Complaint
-
weakness, diarrhea
History of Present Illness
74yo M with PMHX of EARL, HFpEF, CAD, persistent Afib on eliquis, HTN, HLD, DM, wheelchair dependent 2/2 morbid obesity called EMS since his helper could not assit him anymore wtih showering. Patient himself c/o progressive weakness for past week as
well as loose stools averaging 3 times per day. Patient lives alone and dependent on assistance for ADL. He is obviously needs to be in skilled facility since he is unable to care for himself at home and keeps firing helpers as per chart. Upon
admission ED physician promptly attempted to work with CM on placement, however apparently this was not successful due to late timing and weekend.
Patient presented with vomiting in december and found acute uncomplicated colitis at that time.
Medical History
Past Medical History
Past Medical History: Reports Other
Additional Past Medical History:
see HPI
Past Surgical History: Reports Other
Additional Past Surgical History:
See HPI
Social History
Tobacco: Non-smoker
Alcohol: None
Drug: None
Family History
Family History: Not pertinent
Allergies / Home Medications
Allergies reflects when Allergies were last updated in [employer].
Home Medications with original date entered in [employer]
Allergy/Medication List:
Allergies
Allergy/AdvReac Type Severity Reaction Status Date / Time
No Known Allergies Allergy Verified 02/05/25 14:01
Home Medications
atorvastatin 10 mg tablet (Lipitor) 10 mg PO HS High cholesterol 09/04/22
escitalopram oxalate 20 mg tablet (Lexapro) 20 mg PO DAILY Depression 09/04/22
apixaban 5 mg tablet (Eliquis) 5 mg PO BID Blood thinner #30 tabs 05/06/23
gabapentin 300 mg capsule 300 mg PO BID Pain 06/12/23
buspirone 10 mg tablet 10 mg PO BID Mental Health/Anxiety 11/27/23
pantoprazole 40 mg tablet,delayed release (Protonix) 40 mg PO DAILY Gastrointestinal Issue 11/27/23
polyvinyl alcohol-povidone (PF) 1.4 %-0.6 % eye drops in a dropperette (Refresh Classic (PF)) 1 drops BOTH EYES QIDPRN PRN dry eyes 04/09/24
metoprolol succinate 25 mg tablet,extended release 24 hr 25 mg PO DAILY #30 tabs 08/03/24
furosemide 80 mg tablet 80 mg PO DAILY Fluid Retention/Swelling 09/22/24
baclofen 5 mg tablet 5 mg PO BID 14 days #28 tabs 10/04/24
polyethylene glycol 3350 17 gram oral powder packet (HealthyLax) 17 g PO DAILYPRN PRN constipation #0 ea 10/04/24
cephalexin 500 mg capsule 500 mg PO QID 7 days #28 caps 12/28/24
insulin glargine 100 unit/mL (3 mL) subcutaneous pen (Lantus Solostar U-100 Insulin) 7 - 15 unit SC HS Diabetes 12/28/24
insulin lispro 100 unit/mL subcutaneous pen 6 sliding scale dose SC AC 12/28/24
ondansetron 4 mg disintegrating tablet 4 mg PO Q8HPRN PRN nausea and vomiting 12/28/24
Review of Systems
-
History Source: Patient
A 12 point ROS was completed and negative except as noted: Yes
Constitutional: Reports Fatigue
Abdomen/GI: Reports Diarrhea
Physical Exam
Vital Signs
Vital Signs
Temp Pulse Resp BP Pulse Ox
98.5 F 86 20 121/69 95
02/05/25 14:02 02/05/25 14:02 02/05/25 14:02 02/05/25 14:02 02/05/25 14:02
Physical Exam
General: Comfortable, Conversant and Good Appetite
HEENT: NormoCephalic, Anicteric and Moist mucous membranes
Respiratory: Clear; No Wheezes, Rales or Crackles
Cardiac: S1/S2 and Regular Rhythm; No Murmur
GI: Soft, Non Tender, Non Distended and Normal Bowel Sounds
Genito-urinary: No costovertebral tender
Musculoskeletal: No Clubbing, No Cyanosis and No Edema
Skin: Warm and Other (b/l LE stasis dermatitis)
Neuro: Awake, Alert, Oriented and AO x 3
Psych: Calm
Laboratory Results
-
02/05/25 14:13
02/05/25 14:13
Laboratory Results
Total Bilirubin 1.5 mg/dl (0.2-1.3) H 02/05/25 14:13
AST 17 U/L (17-59) 02/05/25 14:13
ALT 11 U/L (0-50) 02/05/25 14:13
Alkaline Phosphatase 87 U/L (38-126) 02/05/25 14:13
Troponin I < 0.012 ng/ml 02/05/25 14:13
Data Reviewed
-
Lab Data: Labs Reviewed by me
Impression/Plan
-
A/P:
#Social issue
#Chronic ambulatory deficiency
#R adrenal adenoma
Check TSH, cortisol
CM consult
PT/OT
Placement
Check UA
#Diarrhea
stool for WBC and C.diff
hold laxatives
#Recurrent mild bilirubinemia
no abdominal pain
check LDH, direct bili, retics
#DM type 2 with nephropathy
Insulin SS, DM diet, AccuCheck
#CAD stable
#Persistent Afib s/p PPM
#chronic HFpEF
#Mild chronic anemia
#Recurrent thrombocytopenia
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
#Chronic cough
#EARL
#R hemidiaphragm elevation
#Restrictive lung disease
#HLD
#Anxiety d/o
#Morbid obesity with BMI
advise to decrease calorie intake
cont home meds
cont CPAP
#LE wound
not appearing infected
Wound care
DVT ppx hep
Full code - discussed in details with patient
I have spent 78min reviewing chart, test results providing direct patient care
--- NOTE | 2025-02-05 17:04 | PHANOTE ---
med rec tech note: patient is unable to give a med rec. He states that 'the nurse fills my med box', but he did not arrive here from a facility. I have called his sister and left a message.
[2025-02-05 18:56] LABS: Glucose - Point of Care 101 mg/dl (70-99)
[2025-02-05] MEDS: NOVOLOG FLEXPEN-MODERATE RESISTANCE SC (19:16)
--- NOTE | 2025-02-05 19:37 | PTCARENOTE ---
1815 Pt received from ED via stretcher. AAOX3. Pt assisted to bed with the transfer sliding sheet with assist of three staff. Pt tolerated well.
[2025-02-05] MEDS: ELIQUIS 5 MG PO (20:56)
[2025-02-05] MEDS: LIORESAL 5 MG PO (20:56)
[2025-02-05] MEDS: BUSPAR 10 MG PO (20:56)
[2025-02-05] MEDS: DESENEX/MITRAZOL/ZEASORB 1 APPLIC TOPICAL (20:57)
[2025-02-05] MEDS: NEURONTIN 300 MG PO (20:57)
[2025-02-05] MEDS: LIPITOR 10 MG PO (20:58)
[2025-02-05 21:18] LABS: Glucose - Point of Care 160 mg/dl (70-99)
[2025-02-05] MEDS: LANTUS 0.1 UNITS SC (21:57)
[2025-02-05] MEDS: TYLENOL 650 MG PO (22:02)
[2025-02-06] VITALS (8 sets, daily range): BP systolic 122–152; BP diastolic 56–91; PULSE 2–51; BMI 33.3
[2025-02-06 07:12] LABS: Glucose - Point of Care 104 mg/dl (70-99)
[2025-02-06 07:29] LABS: ALT (SGPT) < 10 U/L (0-50); AST (SGOT) 13 U/L (17-59); Albumin 2.7 g/dl (3.5-5.0); Alkaline Phosphatase 63 U/L (38-126); Blood Urea Nitrogen 14 mg/dl (9-20); Calcium 8.6 mg/dl (8.4-10.2); Carbon Dioxide 30 mmol/L (22-30); Chloride 107 mmol/L (98-107); Estimated Creatinine Clearance 66 ml/min; Glucose 107 mg/dl (70-99); Magnesium 1.9 mg/dl (1.6-2.3); Potassium 3.6 mmol/L (3.5-5.1); Sodium 141 mmol/L (135-145); Total Bilirubin 0.8 mg/dl (0.2-1.3); Total Protein 5.3 g/dl (6.3-8.2); eGFR > 60.00
[2025-02-06 07:57] LABS: Cortisol, Random 7.6 ug/dl; TSH Reflex To Free T4 2.15 uIU/ml (0.47-4.68)
[2025-02-06] MEDS: LIORESAL 5 MG PO ×2 (08:09→20:23)
[2025-02-06] MEDS: LASIX 80 MG PO (08:09)
[2025-02-06] MEDS: BUSPAR 10 MG PO ×2 (08:09→20:23)
[2025-02-06] MEDS: TOPROL XL 25 MG PO (08:09)
[2025-02-06] MEDS: PROTONIX 40 MG PO (08:09)
[2025-02-06] MEDS: LEXAPRO 20 MG PO (08:10)
[2025-02-06] MEDS: ELIQUIS 5 MG PO ×2 (08:10→20:23)
[2025-02-06] MEDS: NEURONTIN 300 MG PO ×2 (08:10→20:23)
[2025-02-06] MEDS: DESENEX/MITRAZOL/ZEASORB 1 APPLIC TOPICAL ×2 (08:15→20:23)
[2025-02-06 08:23] LABS: % Basophils 0.9 % (0-2); % Eosinophils 3.8 % (0-6); % Immature Granulocytes 0.8 % (0-0.5); % Lymphocytes 38.7 % (20.5-51.1); % Monocytes 6.3 % (1.7-9.3); % Neutrophils 49.5 % (42.2-75.2); Absolute Basophils 0.1 10^3/uL (0-0.2); Absolute Eosinophils 0.2 10^3/uL (0-0.7); Absolute Immature Granulocytes 0.1 10^3/uL (0-0.05); Absolute Lymphocytes 2.5 10^3/uL (1.2-3.4); Absolute Monocytes 0.4 10^3/uL (0.1-0.6); Absolute Neutrophils 3.2 10^3/uL (1.4-6.5); Hematocrit 29.2 % (39.0-52.0); Hemoglobin 9.8 g/dL (13.0-18.0); Mean Corp Hgb Conc. 33.6 g/dL (33.0-37.0); Mean Corpuscular Hgb 30.3 pg (27.0-31.0); Mean Corpuscular Volume 90.4 fL (80.0-94.0); Mean Platelet Volume 13.3 fL (7.4-10.4); Nucleated Red Blood Cells % 0 % (-); Platelet Count 130 10^3/uL (130-400); Red Blood Cell Count 3.23 10^6/uL (4.70-6.10); Red Cell Dist. Width 15.2 % (11.5-14.5); White Blood Cell Count 6.4 10^3/uL (4.8-10.8)
--- NOTE | 2025-02-06 08:29 | W.PN.HOSP.TC ---
Addendum entered and electronically signed by Polo Duran MD 02/06/25 08:33:
#anemia
no overt bleed
follow H&H
stool for occult blood ordered, RN informed
Original Note:
Today's Communication/Plan
-
ACTH stim test and pending placement
Assessment / Plan
Assessment / Plan
74yo M with PMHX of EARL, HFpEF, CAD, persistent Afib on eliquis, HTN, HLD, DM, wheelchair dependent 2/2 morbid obesity called EMS since his helper could not assit him anymore wtih showering. Patient himself c/o progressive weakness for past week as
well as loose stools averaging 3 times per day. Patient lives alone and dependent on assistance for ADL. He is obviously needs to be in skilled facility since he is unable to care for himself at home and keeps firing helpers as per chart. Upon
admission ED physician promptly attempted to work with CM on placement, however apparently this was not successful due to late timing and weekend.
Patient did not have GI symptoms while in the [facility]
A/P:
#Social issue
#Chronic ambulatory deficiency
#R adrenal adenoma
TSH WNL
COrtisol low - needs ACTH stim test with baseline ACTH level - RN informed on process, should coordinate with lab
CM consult
PT/OT
Placement
UA still pending
#Diarrhea
resolved
if reoccurs - stool for WBC and C.diff
hold laxatives
#Recurrent mild bilirubinemia
no abdominal pain
LDH, direct bili, retics - never done by lab on initial blood test, bili normalized later
#DM type 2 with nephropathy
Insulin SS, DM diet, AccuCheck
#CAD stable
#Persistent Afib s/p PPM
#chronic HFpEF
#Mild chronic anemia
#Recurrent thrombocytopenia
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
#Chronic cough
#EARL
#R hemidiaphragm elevation
#Restrictive lung disease
#HLD
#Anxiety d/o
#Morbid obesity with BMI
advise to decrease calorie intake
cont home meds
cont CPAP
#LE wound
not appearing infected
Wound care
DVT ppx hep
Full code - discussed in details with patient
I have spent 38min reviewing chart, test results providing direct patient care
Anticipated Discharge: 24 - 48 hours
Subjective/Interval History
-
Date of Service: February 06, 2025
Objective Data
-
Labs:
Laboratory Results
02/06/25
06:26
WBC 6.4
Hgb 9.8 L
Hct 29.2 L
Plt Count 130 D
Sodium 141
Potassium 3.6
Chloride 107
Carbon Dioxide 30
BUN 14
Creatinine 1.2
Glucose 107 H
Calcium 8.6
Total Bilirubin 0.8
AST 13 L
ALT < 10
Alkaline Phosphatase 63
Vital Signs:
Vital Signs
Temp Pulse Resp BP Pulse Ox
97.0 F 53 17 126/56 95
02/06/25 07:00 02/06/25 07:00 02/06/25 07:00 02/06/25 07:00 02/06/25 07:00
I&O
02/05/25 02/06/25 02/07/25
06:59 06:59 06:59
Intake Total 600 / 600
Balance 600 / 600
Review of Systems
-
History Source: Patient
All other systems: Reviewed and negative
Abdomen/GI: Denies Nausea, Vomiting or Diarrhea
Physical Exam
-
General: No Apparent Distress
Neuro: Awake, Alert, Oriented and AO x 3
Psych: Calm
[2025-02-06] MEDS: NOVOLOG FLEXPEN-MODERATE RESISTANCE SC ×2 (09:27→16:52)
[2025-02-06 10:52] LABS: Glycohemoglobin (HgbA1c) 5.7 % (4.0-5.6)
[2025-02-06 12:03] LABS: Glucose - Point of Care 193 mg/dl (70-99)
[2025-02-06] MEDS: NOVOLOG FLEXPEN-MODERATE RESISTANCE 1 UNITS SC (13:30)
--- NOTE | 2025-02-06 16:18 | W.PN.UPDATE ---
Update Note
Progress Note Update
patient keeps changing his mid agreeing then declining ACTH stim test. Might be reasonable to defer to the later date or even outpatient
--- NOTE | 2025-02-06 16:19 | VATNOTE ---
Patient refused cortisol testing x 2, MD Duran aware, order to cancel testing at this time.
[2025-02-06 16:38] LABS: Glucose - Point of Care 124 mg/dl (70-99)
[2025-02-06] MEDS: LIPITOR 10 MG PO (20:23)
[2025-02-06 20:25] LABS: Hemoglobin 10.8 g/dL (13.0-18.0)
[2025-02-06 21:24] LABS: Glucose - Point of Care 106 mg/dl (70-99)
[2025-02-06] MEDS: LANTUS SC (21:45)
--- NOTE | 2025-02-06 21:53 | PTCARENOTE ---
Jasvir texted House Provider, Risa Lira, asking if she still wanted me to give the pt's 10 units of Lantus HS as pt's blood sugar= 106. Advised to hold the HS Lantus at this time.
[2025-02-07] VITALS (9 sets, daily range): BP systolic 108–174; BP diastolic 54–84; PULSE 2–60; BMI 33.8
[2025-02-07] MEDS: MYLICON 80 MG PO (01:36)
[2025-02-07] MEDS: TIGAN 200 MG IM (01:36)
--- NOTE | 2025-02-07 03:00 | PTCARENOTE ---
Pt repeatedly asking different staff members for hospital gowns to take home. Have advised pt that we cannot do that.
[2025-02-07] MEDS: BUSPAR 10 MG PO ×2 (08:00→21:19)
[2025-02-07 08:03] LABS: Glucose - Point of Care 114 mg/dl (70-99)
[2025-02-07] MEDS: PROTONIX 40 MG PO (08:08)
[2025-02-07] MEDS: LIORESAL 5 MG PO ×2 (08:08→21:19)
[2025-02-07] MEDS: LASIX 80 MG PO (08:08)
[2025-02-07] MEDS: NEURONTIN 300 MG PO ×3 (08:08→21:19)
[2025-02-07] MEDS: ELIQUIS 5 MG PO ×2 (08:09→21:19)
[2025-02-07] MEDS: LEXAPRO 20 MG PO (08:10)
[2025-02-07] MEDS: TOPROL XL PO ×2 (08:10→08:12)
[2025-02-07] MEDS: DESENEX/MITRAZOL/ZEASORB 1 APPLIC TOPICAL ×2 (08:13→21:21)
--- NOTE | 2025-02-07 08:31 | VNURNOTE ---
Chart reviewed. [facility]. Will continue to follow hospital course and DC plans.
[2025-02-07] MEDS: NOVOLOG FLEXPEN-MODERATE RESISTANCE SC ×2 (09:36→16:53)
--- NOTE | 2025-02-07 12:11 | WOUNDNOTE ---
L MEDIAL LOWER LEG
--- NOTE | 2025-02-07 12:15 | WOUNDNOTE ---
[facility] RN note: Patient admitted with weakness and acute bronchitis.
See H&P for complete history. Lives alone has caregivers for ADL's.
PMH: ED Past Medical History: Arrthythmia (Atrial fib), Asthma, CHF, COPD, HTN, IDDM, CT (Denies) and Other (Sleep apnea uses CPAP, Neuropathy, PNA, )
ED Past Surgical History: Cardiac (Pacemaker for III degree heart block), Orthopedic (Right hip surgery, Back surgery, ) and Tonsilectomy
Wound Location and type/assessment: Patient admitted with: L leg open blister, suspect venous. Patient confirmed that his legs swell up, trace edema today. Aware that he could benefit from compression stockings but can't get them on. R leg healed
abrasion. R lateral heel patient reports painful, has healing skin fissure with dried blood. L heel blanchable red. Patient turned self, sacrum intact.
Appetite: Good.
Pressure redistribution devices in place: On Accumax, pillows under calves.
Plan: Adaptic and silicone foam applied to L leg. Applied Vaseline to legs, will order mineral oil. Adhesive foams applied to heels and andres wraps knee high. Will confirm orders with hospitalist and updated nurse Latosha.
Updated care plan and will follow as needed.
Note to case management of equipment requested for discharge: VN if going home.
Recommend follow up at wound care center upon discharge.
[2025-02-07 12:16] LABS: Glucose - Point of Care 158 mg/dl (70-99)
[2025-02-07] MEDS: NOVOLOG FLEXPEN-MODERATE RESISTANCE 1 UNITS SC (13:55)
--- NOTE | 2025-02-07 14:27 | CM ---
CM met with Wisam in room 321 today to discuss discharge. Per Wisam, his sister will decide the discharge plan.
Call placed to pt's sister ([phone]) and had to leave a voicemail; requested return call to discuss discharge options.
Snf referrals sent to 15 facilities. Of the 15 facilities, 4 facilities have offered a bed for admission.
Plan: await return call from pt's sister to discuss available SNF options: [facility], [facility], [facility] have offered a bed at discharge. CM to obtain SNF authorization once facility has been
identified.
[2025-02-07 16:48] LABS: Glucose - Point of Care 127 mg/dl (70-99)
--- NOTE | 2025-02-07 17:10 | W.PN.HOSP.TC ---
Today's Communication/Plan
-
Placement
Assessment / Plan
Assessment / Plan
74yo M with PMHX of EARL, HFpEF, CAD, persistent Afib on eliquis, HTN, HLD, DM, wheelchair dependent 2/2 morbid obesity called EMS since his helper could not assit him anymore wtih showering. Patient himself c/o progressive weakness for past week as
well as loose stools averaging 3 times per day. Patient lives alone and dependent on assistance for ADL. He is obviously needs to be in skilled facility since he is unable to care for himself at home and keeps firing helpers as per chart. Upon
admission ED physician promptly attempted to work with CM on placement, however apparently this was not successful due to late timing and weekend.
Patient did not have GI symptoms while in the [facility]
Impression
Failure to thrive
Chronic ambulatory dysfunction baseline
Chronic kidney disease stage IIIb
Chronic heart failure preserved ejection fraction.
Dyslipidemia
Type 2 diabetes with neuropathy baseline COPD/asthma.
Permanent atrial fibrillation status post PPM.
Anticoagulation with Eliquis.
CAD.
Essential hypertension.
Chronic back pain/sciatica.
Sleep apnea.
Incidentaloma
Plan:
Failure to thrive likely multifactorial.
Patient is bedridden with helpers at home.
Current workup with no acute issues requiring inpatient hospitalization.
Pending disposition including possible placement to snf facility if patient agree versus discharge home with helpers
CAD
Paroxysmal atrial fibrillation
Anticoagulation with Eliquis.
Chronic CHF preserved EF
Volume status compensated
Continue current regimen including metoprolol, Lipitor, apixaban, oral Lasix
IDDM 2
Recent hemoglobin A1c 5.7
Continue diabetic diet
Continue insulin
Continue basal bolus protocol with serial Accu-Cheks
Diabetic neuropathy.
Complains of lower extremity pain as well as sciatica pain
Continue baclofen
Increase Neurontin to 300 mg 3 times daily
Incidentaloma.
Random cortisol in the situation with limited clinical value
Will require outpatient follow-up and workup
Anticipated Discharge: Within 24 hours
Subjective/Interval History
-
Date of Service: February 07, 2025
Objective Data
-
Vital Signs:
Vital Signs
Temp Pulse Resp BP Pulse Ox
98.2 F 57 18 108/54 96
02/07/25 15:19 02/07/25 15:19 02/07/25 15:19 02/07/25 15:19 02/07/25 15:19
I&O
02/06/25 02/07/25 02/08/25
06:59 06:59 06:59
Intake Total 600 / 600 0 / 1860
Balance 600 / 600 1859 / 1859
Physical Exam
-
General: No Apparent Distress
HEENT: Normocephalic, Atraumatic and Moist Mucous Membranes
Respiratory: Clear to Auscultation
Cardiac: Regular Rhythm and S1/S2; Negative Murmur, Rub or Gallop
GI: Soft, Nontender, Nondistended and Normal Bowel Sounds; Negative Organomegaly
Rectal: Deferred by Provider
Musculoskeletal: No Clubbing, No Cyanosis and No Edema
Skin: Negative Rash
Neuro: Awake, Alert, Oriented and AO x 3
Psych: Calm
[2025-02-07 17:24] LABS: Urine Albumin Negative (Neg - Trace); Urine Bilirubin Negative (Negative); Urine Character Clear (Clear); Urine Glucose Negative (Negative); Urine Ketone Negative (Negative); Urine Leukocyte Negative (Negative); Urine Nitrite Negative (Negative); Urine Occult Blood Negative (Negative); Urine Urobilinogen Negative (Neg - 1+)
[2025-02-07 17:58] LABS: Urine Color Straw
--- NOTE | 2025-02-07 20:52 | RESPNOTE ---
Spoke with patient regarding what alondra he will go on to [facility] CPAP tonight. Patient stated ' after 11 '' PM.
[2025-02-07] MEDS: LIPITOR 10 MG PO (21:19)
[2025-02-07] MEDS: LANTUS 0.1 UNITS SC (21:20)
[2025-02-07 21:21] LABS: Glucose - Point of Care 151 mg/dl (70-99)
[2025-02-08] VITALS (11 sets, daily range): BP systolic 102–145; BP diastolic 44–68; PULSE 2–54; O2SAT 96; BMI 33.9
[2025-02-08 07:53] LABS: Glucose - Point of Care 115 mg/dl (70-99)
[2025-02-08] MEDS: NOVOLOG FLEXPEN-MODERATE RESISTANCE SC ×2 (08:01→16:50)
[2025-02-08] MEDS: DESENEX/MITRAZOL/ZEASORB 1 APPLIC TOPICAL ×2 (08:20→20:29)
[2025-02-08] MEDS: HYDROPHOR 1 APPLIC TOPICAL (08:20)
[2025-02-08] MEDS: NEURONTIN 300 MG PO ×2 (08:21→16:12)
[2025-02-08] MEDS: PROTONIX 40 MG PO (08:21)
[2025-02-08] MEDS: LIORESAL 5 MG PO ×2 (08:21→20:28)
[2025-02-08] MEDS: LEXAPRO 20 MG PO (08:23)
[2025-02-08] MEDS: TOPROL XL PO (08:23)
[2025-02-08] MEDS: TOPROL XL 25 MG PO (08:23)
[2025-02-08] MEDS: LASIX 80 MG PO (08:23)
[2025-02-08] MEDS: BUSPAR 10 MG PO ×2 (08:24→20:28)
[2025-02-08] MEDS: ELIQUIS 5 MG PO ×2 (08:24→20:28)
[2025-02-08 12:13] LABS: Glucose - Point of Care 156 mg/dl (70-99)
--- NOTE | 2025-02-08 12:20 | CM ---
Addendum entered by Ceci Cedeno 02/08/25 16:27:
Called [facility] [phone]
Spoke with Madison - Pended reference #: [id number]
start 02/09/25
Faxed clinicals to [phone]
PLAN: [facility], pending auth approval
Addendum entered by Ceci Cedeno 02/08/25 16:01:
[facility] cannot accept, offered [facility] but patient refused
Spoke with Criselda from [facility], bed available, private room-patient agreeable
[facility] NPI #: [id number]
Dr. Gideon Saleh NPI #: [id number]
CM will call insurance for auth ([facility] transitions) [phone]
Original Note:
Spoke with patient and sister Kyra
now agreeable to SNF - patient preferred [facility]
Called Nan galanison and she will check & look at referral and get back to CM
Will need to obtain insurance auth prior
PT/OT will need to see (last note 02/06)
PLAN: SNF, pending bed availability, will need insurance auth
[2025-02-08] MEDS: NOVOLOG FLEXPEN-MODERATE RESISTANCE 1 UNITS SC (12:32)
--- NOTE | 2025-02-08 16:04 | W.PN.HOSP.TC ---
Today's Communication/Plan
-
Ongoing disposition efforts to [facility] facility
Assessment / Plan
Assessment / Plan
74yo M with PMHX of EARL, HFpEF, CAD, persistent Afib on eliquis, HTN, HLD, DM, wheelchair dependent 2/2 morbid obesity called EMS since his helper could not assit him anymore wtih showering. Patient himself c/o progressive weakness for past week as
well as loose stools averaging 3 times per day. Patient lives alone and dependent on assistance for ADL. He is obviously needs to be in skilled facility since he is unable to care for himself at home and keeps firing helpers as per chart. Upon
admission ED physician promptly attempted to work with CM on placement, however apparently this was not successful due to late timing and weekend.
Patient did not have GI symptoms while in the [facility]
Impression
Failure to thrive
Chronic ambulatory dysfunction baseline
Chronic kidney disease stage IIIb
Chronic heart failure preserved ejection fraction.
Dyslipidemia
Type 2 diabetes with neuropathy baseline COPD/asthma.
Permanent atrial fibrillation status post PPM.
Anticoagulation with Eliquis.
CAD.
Essential hypertension.
Chronic back pain/sciatica.
Sleep apnea.
Incidentaloma
Plan:
Failure to thrive likely multifactorial.
Patient is bedridden with helpers at home.
Current workup with no acute issues requiring inpatient hospitalization.
Pending disposition including possible placement to [facility] facility if patient agree versus discharge home with helpers
CAD
Paroxysmal atrial fibrillation
Anticoagulation with Eliquis.
Chronic CHF preserved EF
Volume status compensated
Continue current regimen including metoprolol, Lipitor, apixaban, oral Lasix
IDDM 2
Recent hemoglobin A1c 5.7
Continue diabetic diet
Continue insulin
Continue basal bolus protocol with serial Accu-Cheks
Diabetic neuropathy.
Complains of lower extremity pain as well as sciatica pain
Continue baclofen
Increase Neurontin to 300 mg 3 times daily
Incidentaloma.
Random cortisol in the situation with limited clinical value
Will require outpatient follow-up and workup
Anticipated Discharge: Within 24 hours
Subjective/Interval History
-
Date of Service: February 08, 2025
Objective Data
-
Vital Signs:
Vital Signs
Temp Pulse Resp BP Pulse Ox
98.0 F 55 19 136/64 98
02/08/25 15:05 02/08/25 15:05 02/08/25 15:05 02/08/25 15:05 02/08/25 15:05
I&O
02/07/25 02/08/25 02/09/25
06:59 06:59 06:59
Intake Total 1859
Balance 1859
Physical Exam
-
General: No Apparent Distress
HEENT: Normocephalic, Atraumatic and Moist Mucous Membranes
Respiratory: Clear to Auscultation
Cardiac: Regular Rhythm and S1/S2; Negative Murmur, Rub or Gallop
GI: Soft, Nontender, Nondistended and Normal Bowel Sounds; Negative Organomegaly
Rectal: Deferred by Provider
Musculoskeletal: No Clubbing, No Cyanosis and No Edema
Skin: Negative Rash
Neuro: Awake, Alert, Oriented and AO x 3
Psych: Calm
[2025-02-08 16:37] LABS: Glucose - Point of Care 129 mg/dl (70-99)
[2025-02-08 21:19] LABS: Glucose - Point of Care 139 mg/dl (70-99)
[2025-02-09] MEDS: LIPITOR 10 MG PO (00:13)
[2025-02-09] MEDS: NEURONTIN 300 MG PO ×3 (00:13→16:53)
[2025-02-09] MEDS: LANTUS 0.1 UNITS SC (00:14)
[2025-02-09 00:21] LABS: Glucose - Point of Care 111 mg/dl (70-99)
[2025-02-09 03:16] VITALS: PULSE 2
[2025-02-09 06:00] VITALS: BMI 32.6
[2025-02-09 07:32] VITALS: BP 110/59
[2025-02-09] MEDS: LIORESAL 5 MG PO (08:00)
[2025-02-09] MEDS: BUSPAR 10 MG PO (08:03)
[2025-02-09] MEDS: LEXAPRO 20 MG PO (08:03)
[2025-02-09] MEDS: ELIQUIS 5 MG PO (08:04)
[2025-02-09] MEDS: PROTONIX 40 MG PO (08:04)
[2025-02-09] MEDS: LASIX 80 MG PO (08:04)
[2025-02-09] MEDS: TOPROL XL PO (08:05)
[2025-02-09] MEDS: DESENEX/MITRAZOL/ZEASORB 1 APPLIC TOPICAL (08:06)
[2025-02-09] MEDS: HYDROPHOR 1 APPLIC TOPICAL (08:06)
[2025-02-09 08:24] LABS: Glucose - Point of Care 93 mg/dl (70-99)
[2025-02-09] MEDS: NOVOLOG FLEXPEN-MODERATE RESISTANCE SC ×2 (08:46→16:53)
--- NOTE | 2025-02-09 09:17 | CM ---
Addendum entered by Ceci Cedeno 02/09/25 11:00:
1700 transport set - notified Jennifer liaison
PLAN: [facility]
Report #: [phone]
Fax #: [phone]
Addendum entered by Ceci Cedeno 02/09/25 10:31:
Patient agreeable with [facility] SNF-IMM explained & signed. In chart
Jennifer will get back to with report & fax #:s
PLAN: [facility]
Original Note:
Received call from Maite from [facility]
Auth approved - Reference #: [id number] for [facility]
Start date 02/09/25 ---NRD 02/11/25
Counselling Psychologist is Gregoria [phone] Fax #: [phone]
Left message with Jennifer almazan with auth approval information - await call back for Report & Fax #'s
Left message for sister Kyra [phone]
PLAN: [facility]
transportation forms on chart
--- NOTE | 2025-02-09 11:08 | W.DS.TRANS ---
DC Summary - [employer]
-
Discharge Instructions:
Discharge Diagnosis/Procedures Failure to thrive
Chronic ambulatory dysfunction baseline
Chronic kidney disease stage IIIb
Chronic heart failure preserved ejection
fraction.
Dyslipidemia
Type 2 diabetes with neuropathy baseline COPD/
asthma.
Permanent atrial fibrillation status post PPM.
Anticoagulation with Eliquis.
CAD.
Essential hypertension.
Chronic back pain/sciatica.
Sleep apnea.
Incidentaloma
Diet Diabetic, Carb Controlled
Others Tests Incidentaloma.
Will require outpatient endocrinology follow-up.
Instructions:
Stand-Alone Forms:
Changes to Home Medications: No
Discharge Medications:
DC Medications w/original date entered in [employer]
atorvastatin 10 mg tablet (Lipitor) 10 mg PO HS High cholesterol 09/04/22
escitalopram oxalate 20 mg tablet (Lexapro) 20 mg PO DAILY Depression 09/04/22
apixaban 5 mg tablet (Eliquis) 5 mg PO BID Blood thinner #30 tabs 05/06/23
buspirone 10 mg tablet 10 mg PO BID Mental Health/Anxiety 11/27/23
pantoprazole 40 mg tablet,delayed release (Protonix) 40 mg PO DAILY Gastrointestinal Issue 11/27/23
polyvinyl alcohol-povidone (PF) 1.4 %-0.6 % eye drops in a dropperette (Refresh Classic (PF)) 1 drops BOTH EYES QIDPRN PRN dry eyes 04/09/24
metoprolol succinate 25 mg tablet,extended release 24 hr 25 mg PO DAILY #30 tabs 08/03/24
furosemide 80 mg tablet 80 mg PO DAILY Fluid Retention/Swelling 09/22/24
baclofen 5 mg tablet 5 mg PO BID 14 days #28 tabs 10/04/24
polyethylene glycol 3350 17 gram oral powder packet (HealthyLax) 17 g PO DAILYPRN PRN constipation #0 ea 10/04/24
insulin glargine 100 unit/mL (3 mL) subcutaneous pen (Lantus Solostar U-100 Insulin) 7 - 15 unit SC HS Diabetes 12/28/24
insulin lispro 100 unit/mL subcutaneous pen 6 sliding scale dose SC AC 12/28/24
ondansetron 4 mg disintegrating tablet 4 mg PO Q8HPRN PRN nausea and vomiting 12/28/24
gabapentin 300 mg capsule 300 mg PO TID Pain #0 caps 02/09/25
sennosides 8.6 mg-docusate sodium 50 mg tablet 1 tab PO BIDPRN PRN constipation #15 tabs 02/09/25
Home Medication Changes
Pending Results: No
[2025-02-09 12:19] LABS: Glucose - Point of Care 194 mg/dl (70-99)
[2025-02-09] MEDS: NOVOLOG FLEXPEN-MODERATE RESISTANCE 1 UNITS SC (12:49)
[2025-02-09 15:48] VITALS: BP 105/48
[2025-02-09 16:53] LABS: Glucose - Point of Care 103 mg/dl (70-99)
== END 2025-02-09 17:16 ==
LOC: 3 WEST ACU 16:42
PROVIDERS: ADMITTING PHYSICIAN Internal Medicine; ATTENDING PHYSICIAN Internal Medicine; EMERGENCY PHYSICIAN Student in an Organized Health Care Education/Training Program; FAMILY PHYSICIAN Internal Medicine
DX: R62.7 Adult failure to thrive (principal); R53.1 Weakness; Z60.2 Problems related to living alone; Z99.3 Dependence on wheelchair; D64.9 Anemia, unspecified; Z65.8 Other specified problems related to psychosocial circumstances; D35.01 Benign neoplasm of right adrenal gland; E66.01 Morbid (severe) obesity due to excess calories; I13.0 Hypertensive heart and chronic kidney disease with heart failure and stage 1 through stage 4 chronic kidney disease, or unspecified chronic kidney disease; E11.22 Type 2 diabetes mellitus with diabetic chronic kidney disease; I50.32 Chronic diastolic (congestive) heart failure; N18.32 Chronic kidney disease, stage 3b; E78.5 Hyperlipidemia, unspecified; E11.40 Type 2 diabetes mellitus with diabetic neuropathy, unspecified; J44.89 Other specified chronic obstructive pulmonary disease; Z74.01 Bed confinement status; I25.10 Atherosclerotic heart disease of native coronary artery without angina pectoris; I48.21 Permanent atrial fibrillation; Z79.4 Long term (current) use of insulin; Z79.01 Long term (current) use of anticoagulants; G89.29 Other chronic pain; M54.9 Dorsalgia, unspecified; Z95.0 Presence of cardiac pacemaker; D69.6 Thrombocytopenia, unspecified; F41.9 Anxiety disorder, unspecified; G47.33 Obstructive sleep apnea (adult) (pediatric); J98.4 Other disorders of lung; Z79.899 Other long term (current) drug therapy
CPT/HCPCS: 71045; 80053; 81003; 82533; 82962; 83036; 83735; 83880; 84443; 84484; 85014; 85018; 85025; 93005; 94660; 96361; 96374; 96376; 97167; 97530; 97535; 99285; G0378

== ENCOUNTER 2025-04-11 18:37 | Observation (INO) | payer MEDICARE, SELFPAY ==
[2025-04-11] VITALS (9 sets, daily range): BP systolic 102–168; BP diastolic 52–77; PULSE 2–88; BMI 34.1
--- NOTE | 2025-04-11 14:48 | ED.GENMED ---
History of Present Illness
General
Chief Complaint: Fainting/Passed Out
Source: patient
Exam Limitations: none
Time Seen by Provider: 04/11/25 14:47
History of Present Illness
History of Present Illness:
74yoM with a history of coronary artery disease, atrial fibrillation on Eliquis, CHF, heart block s/p pacemaker, hypertension, hyperlipidemia, type 2 diabetes, obesity, EARL, and CKD presenting via EMS for evaluation after a syncopal episode.
Patient was on the toilet attempting to have a bowel movement. He started to feel lightheaded, nauseous, and short of breath. He then lost consciousness. EMS reports that he was unconscious for a few minutes. Patient was hoping that EMS would
just help him get off the toilet but they insisted that he come to the ED to get evaluated. He denies any dizziness currently. He has been experiencing a 'bronchial cough' and chest discomfort after coughing for the past few weeks.
Past History
Past History
ED Past Medical History: Arrthythmia (Atrial fib), Asthma, CHF, COPD, HTN, IDDM, UT (Denies) and Other (Sleep apnea uses CPAP, Neuropathy, PNA, )
ED Past Surgical History: Cardiac (Pacemaker for III degree heart block), Orthopedic (Right hip surgery, Back surgery, ) and Tonsilectomy
Social History
Tobacco: Non-smoker
Alcohol: None
Personal: Single
Living: with family (Sister)
Family History
Family History: Unable to obtain
Phy Exam
Physical Exam
Physical Exam:
Chronically ill appearing male, no acute distress
General Physical Exam
General Presentation: no apparent distress
General Skin: warm and dry
General Habitus: normal and elderly
General Mental: alert
ENT Exam
ENT Exam: normocephalic
Cardiovascular Exam
Cardiovascular Exam: regular rate/rhythm
Pulmonary Exam
Pulmonary Exam: lungs clear, no respiratory distress, no rales, no crackles, no rhonchi and no wheezing
Neurological Exam
Neurological Exam: alert
Desirae Coma Scale
Eye Opening: Spontaneous
Verbal Response: Oriented
Motor Response: Obeys Commands
GCS Total Score: 15
Skin Exam
Skin Exam: normal color and warm/dry
Psychiatric Exam
Psychiatric Exam: normal mood/affect
Course
Orders/Labs/Results
Orders:
Orders
04/11/25 Breakfast
1800 calorie (15 carb) Diabetic
At Your Request: Limited Participation
04/11/25 14:40
Electrocardiogram (*1) Urgent
Reason for Study: Syncope
EKG- Treatment ONCE
04/11/25 14:42
Basic Metabolic Panel Urgent
Complete Blood Count/With Diff Urgent
Troponin I Urgent
04/11/25 14:48
Cardiac Monitoring- Treatment ONCE
Interrogate Pacemaker- Treatment ONCE
04/11/25 14:57
CR Chest - 2 Views Urgent
Comment:
Reason For Exam: cough
04/11/25 16:38
Ondansetron Injectable [Zofran] 4 mg IV NOW STA
04/11/25 17:42
Orthostatic Vital Signs As Directed
Orthostatic VS Frequency: Now
04/11/25 17:51
Admit/Transfer Patient As Directed
Co-Sign Provider:
Level of Care: Observation services
Assign to:: Telemetry
Physician / Group: josee holt
Diagnosis: near syncope
Reason for Telemetry: Syncope
Date to Stop Telemetry: 04/13/25
Time to Stop Telemetry: 11:00
Code Status As Directed
Resuscitation Status: Full Code
PRN Pain Medication Management As Directed
May give lesser potent ordered pain med per pt: Yes
preference::
Protocol:: Medication orders for pain may be administered in a
manner that supports deferring to patient preference
when the pt is:
- Requesting an ordered lesser potent pain medication.
Least to most potent pain medications are defined
as: acetaminophen < NSAID < tramadol < opioids
(morphine, oxycodone, hydromorphone).
- Requesting a lesser dose of the same medication IF
ORDERED.
- Requesting a less intrusive route of administration
if both routes are prescribed by the provider (PO <
IV).
04/11/25 20:52
Acetaminophen [Tylenol] 650 mg PO Q4HPRN PRN
Apixaban [Eliquis] 5 mg PO BID
Artificial Tears (Pf) [Refresh Eye Drops (Pf)] 1 drops BOTH EYES QIDPRN PRN dry eyes
Baclofen [Lioresal] 5 mg PO BIDPRN PRN spasms
Bisacodyl [Dulcolax] 10 mg RECTAL [id number] PRN
Buspirone [Buspar] 10 mg PO BID
Dextrose 50%-Water [Dextrose 50% Syringe] 12.5 grams IV [id number] PRN
Docusate W/Senna [Senokot-S] 1 tablet PO BIDPRN PRN
Gabapentin [Neurontin] 300 mg PO BID AT 0800,1700
Glucagon [GlucaGen] 1 mg IM PRN PRN
Polyethylene Glycol Powder [Miralax] 17 grams PO DAILYPRN PRN
04/11/25 20:52
Activity As Directed
Activity Level: As Tolerated
Bedside Glucose Monitoring As Directed
Frequency: AC&HS
Additional Instructions:: Change to q6h if pt on TPN, tube feeding or not eating
Vital Signs As Directed
Frequency: Per unit guidelines
04/11/25 21:15
Fluticasone/Salmeterol 45/21 [Advair Hfa 45/21 Mcg Inhaler] 2 puff INH R BID
04/11/25 22:00
Atorvastatin [Lipitor] 10 mg PO HS
Gabapentin [Neurontin] 600 mg PO HS
04/12/25 06:00
Basic Metabolic Panel IN AM
Complete Blood Count/No Diff IN AM
Glycohemoglobin (HgbA1c) IN AM
04/12/25 07:30
Insulin Aspart Corrective Low [Novolog Flexpen-Low Resistance] See Protocol SC AC
04/12/25 08:00
Escitalopram Oxalate [Lexapro] 20 mg PO DAILY
Furosemide [Lasix] 80 mg PO DAILY
Metoprolol Xl [Toprol Xl] 25 mg PO DAILY
Pantoprazole [Protonix] 40 mg PO DAILY
04/13/25 11:00
DC Protocol for Telemetry ONCE
Abnormal Lab Results
04/11/25
14:42
RBC 3.80 L 10^6/uL
(4.70-6.10)
Hgb 11.5 L g/dL
(13.0-18.0)
Hct 35.0 L %
(39.0-52.0)
MCHC 32.9 L g/dL
(33.0-37.0)
RDW 15.6 H %
(11.5-14.5)
MPV 14.0 H fL
(7.4-10.4)
Abs Immat Gran (auto) 0.2 H 10^3/uL
(0-0.05)
Absolute Neuts (auto) 8.0 H 10^3/uL
(1.4-6.5)
Immature Gran % 1.4 H %
(0-0.5)
Neutrophils % 75.9 H %
(42.2-75.2)
Lymphocytes % 15.6 L %
(20.5-51.1)
Chloride 108 H mmol/L
(98-107)
BUN 21 H mg/dl
(9-20)
Creatinine 1.5 H mg/dL
(0.7-1.3)
Glucose 166 H mg/dl
(70-99)
04/11/25 14:42
04/11/25 14:42
Vital Signs
Initial and Last Documented VS:
Initial Vital Signs
Temp Pulse Resp BP Pulse Ox
98.2 F 70 13 134/59 95
04/11/25 14:42 04/11/25 14:42 04/11/25 14:42 04/11/25 14:42 04/11/25 14:42
Last Documented Vital Signs
Temp Pulse Resp BP Pulse Ox
98.2 F 52 16 165/69 95
04/11/25 14:42 04/11/25 22:42 04/11/25 22:42 04/11/25 20:00 04/11/25 22:42
MDM/Problems Addressed
Differential Diagnosis Includes:
74yoM here after a syncopal episode while on the toilet attempting to defecate. Mullins lightheaded, nauseous, and SOB prior to episode. Dizziness resolved. VSS. He is awake, alert, with a GCS of 15. Differential diagnosis includes: vasovagal syncope,
orthostasis, dehydration, cardiogenic syncope
Initial ED plan: Check cardiac labs, EKG, and CXR. Interrogate pacemaker.
*Pulse Oximetry
Patient hypoxic: no (95%)
*EKG
Interpreted by ED Provider?: Yes
EKG Intrepretation Date: 04/11/25
Heart Rate: 74
Rate: normal
Rhythm: ventricular paced
Ischemia: no ischemia
*Critical Care Note
Total Time (30-74mins, 75-104mins- exclusive of procedures): Not Applicable
Update Note
Update Note:
EKG shows paced rhythm and there were no events on pacemaker interrogation. Labs overall unremarkable and troponin WNL. CXR is clear. Suspect vasovagal syncope. He continues to complain of ongoing dizziness and nausea. Given persistent symptoms,
will admit for further evaluation.
ED Attending Note
-
Portions of this chart may have been created with voice recognition software.� Occasional wrong word or��sound alike� substitutions may have occurred due to the inherent limitations of voice recognition software.
Discharge Plan
Departure
Patient Disposition: Admit
Date of Disposition: 04/11/25
Time of Disposition: 17:22
Presentation/result/management discussed w/ accepting MD/DO: Hospitalist
Discharge Problem:
Syncope
Interventions
Interventions:
*Risk Screen - Suicide Last Done: 04/11/25 14:42
*General Assessment Last Done: 04/11/25 14:42
*Neglect/Abuse Screening Last Done: 04/11/25 14:42
*ED- Fall Risk Assessment Last Done: 04/11/25 14:42
*ED COVID-19 Vaccine History Last Done: 04/11/25 14:42
*Nursing Disposition Last Done: 04/11/25 20:48
ED- Cardiac Assessment Last Done: 04/11/25 14:42
ED- Neurological Assessment Last Done: 04/11/25 14:42
Discharge Date and Time
Discharge Date/Time: 04/11/25 20:49
--- NOTE | 2025-04-11 15:03 | VATNOTE ---
Called by ED RN to place an IV in pt's arm and draw lab work. Attempted x1 unsuccessfully. During attempt pt kept repeating to me that he feels faint. Attempted a second IV placement and pt states 'I refuse! I don't want it!' PCN aware.
--- NOTE | 2025-04-11 16:32 | VATNOTE ---
Called back to the ED by PCN, states pt is now agreeable to IV site/labs
[2025-04-11 16:41] LABS: Hematocrit 35.0 % (39.0-52.0); Hemoglobin 11.5 g/dL (13.0-18.0); Mean Corp Hgb Conc. 32.9 g/dL (33.0-37.0); Mean Corpuscular Volume 92.1 fL (80.0-94.0); Nucleated Red Blood Cells % 0 % (-); Platelet Count 175 10^3/uL (130-400); Red Cell Dist. Width 15.6 % (11.5-14.5)
[2025-04-11] MEDS: ZOFRAN 4 MG IV (16:46)
[2025-04-11 16:51] LABS: Blood Urea Nitrogen 21 mg/dl (9-20); Calcium 9.2 mg/dl (8.4-10.2); Carbon Dioxide 29 mmol/L (22-30); Chloride 108 mmol/L (98-107); Glucose 166 mg/dl (70-99); Sodium 142 mmol/L (135-145); eGFR 47.95
[2025-04-11 17:02] LABS: Troponin I < 0.012 ng/ml
--- NOTE | 2025-04-11 17:29 | HPS.HSE ---
Family Physician
-
Family Physician: Alexander Mar MD
Chief Complaint
-
near syncope.
History of Present Illness
74yoM with a history of coronary artery disease, atrial fibrillation on Eliquis, CHF, heart block s/p pacemaker, hypertension, hyperlipidemia, type 2 diabetes, obesity, EARL, and CKD presenting via EMS for evaluation after a syncopal episode.
Patient was on the toilet attempting to have a bowel movement. He started to feel lightheaded, nauseous, and short of breath. he almost passed out. he complained of MALDONADO. denied fever, chills, chest pain. he has chronic cough. denied abdominal pain,
n,v. he gets incontinence of diarrhea for past few days. denied dysuria or hematuria. he is having bronchial cough for past few days for which he is taking Mucinex with no relief in his symptoms.
admitting for further management.
Medical History
Past Medical History
Past Medical History: Reports Other
Additional Past Medical History:
Pneumonia
Sleep apnea
CHF
Pacemaker
Complete heart block
Lyme disease
Paroxysmal A-fib
Coronary artery disease
Hypertension
Past Surgical History: Reports Other
Additional Past Surgical History:
Laminectomy
Hip fracture repair
Tonsillectomy
Social History
Tobacco: Non-smoker
Alcohol: None
Drug: None
Personal: Single
Living: Alone
Family History
Family History: Not pertinent
Allergies / Home Medications
Allergies reflects when Allergies were last updated in [facility].
Home Medications with original date entered in [facility]
Allergy/Medication List:
Allergies
Allergy/AdvReac Type Severity Reaction Status Date / Time
No Known Allergies Allergy Verified 02/05/25 14:01
Home Medications
atorvastatin 10 mg tablet (Lipitor) 10 mg PO HS High cholesterol 09/04/22
escitalopram oxalate 20 mg tablet (Lexapro) 20 mg PO DAILY Depression 09/04/22
apixaban 5 mg tablet (Eliquis) 5 mg PO BID Blood thinner #30 tabs 05/06/23
buspirone 10 mg tablet 10 mg PO BID Mental Health/Anxiety 11/27/23
pantoprazole 40 mg tablet,delayed release (Protonix) 40 mg PO DAILY Gastrointestinal Issue 11/27/23
polyvinyl alcohol-povidone (PF) 1.4 %-0.6 % eye drops in a dropperette (Refresh Classic (PF)) 1 drops BOTH EYES QIDPRN PRN dry eyes 04/09/24
metoprolol succinate 25 mg tablet,extended release 24 hr 25 mg PO DAILY #30 tabs 08/03/24
furosemide 80 mg tablet 80 mg PO DAILY Fluid Retention/Swelling 09/22/24
baclofen 5 mg tablet 5 mg PO BID 14 days #28 tabs 10/04/24
polyethylene glycol 3350 17 gram oral powder packet (HealthyLax) 17 g PO DAILYPRN PRN constipation #0 ea 10/04/24
insulin glargine 100 unit/mL (3 mL) subcutaneous pen (Lantus Solostar U-100 Insulin) 7 - 15 unit SC HS Diabetes 12/28/24
insulin lispro 100 unit/mL subcutaneous pen 6 sliding scale dose SC AC 12/28/24
ondansetron 4 mg disintegrating tablet 4 mg PO Q8HPRN PRN nausea and vomiting 12/28/24
gabapentin 300 mg capsule 300 mg PO TID Pain #0 caps 02/09/25
sennosides 8.6 mg-docusate sodium 50 mg tablet 1 tab PO BIDPRN PRN constipation #15 tabs 02/09/25
Review of Systems
-
Constitutional: Reports No Symptoms
EENT: Reports No Symptoms
Respiratory: Reports No Symptoms
Cardiac: Reports No Symptoms
Abdomen/GI: Reports Diarrhea
: Reports No Symptoms
Musculoskeletal: Reports No Symptoms
Skin: Reports No Symptoms
Neurological: Reports Dizzy and Headache
Endocrine: Reports No Symptoms
Hematologic/Lymphatic: Reports No Symptoms
Psych: Reports No Symptoms
Physical Exam
Vital Signs
Vital Signs
Temp Pulse Resp BP Pulse Ox
98.2 F 60 15 130/63 96
04/11/25 14:42 04/11/25 16:45 04/11/25 16:30 04/11/25 16:00 04/11/25 16:45
Physical Exam
General: Well Developed, Well Nourished and No Apparent Distress
HEENT: NormoCephalic, Moist mucous membranes and Atraumatic
Respiratory: Clear
Cardiac: S1/S2 and Regular Rhythm; No Murmur or Rub
GI: Soft, Non Tender, Non Distended and Normal Bowel Sounds; No Organomegaly
Rectal: Deferred by Provider
Musculoskeletal: No Clubbing, No Cyanosis and No Edema
Skin: No Rash
Neuro: AO x 3 and Nonfocal/grossly intact
Psych: Calm
Laboratory Results
-
04/11/25 14:42
04/11/25 14:42
Laboratory Results
Total Bilirubin Cancelled 04/11/25 14:42
AST Cancelled 04/11/25 14:42
ALT Cancelled 04/11/25 14:42
Alkaline Phosphatase Cancelled 04/11/25 14:42
Troponin I < 0.012 ng/ml 04/11/25 14:42
Data Reviewed
-
Diagnostic Radiology: Report Reviewed by me
Lab Data: Labs Reviewed by me
Impression/Plan
-
#near syncope likely vagovagal
-no events on pacemaker interrogation
-troponin normal
-chest x ray with cardiopulmonary process
-EKG with ventricular paced Rhythm with occasional PVCs
#diarrhea likely viral
-consider stool culture if continues to have diarrhea.
#anemia of chronic disease
-hgb stable at 11.5
-no active bleeding
-ctm
#CKD stage 3b
-cr 1.5
-ctm
#CAD
#Paroxysmal atrial fibrillation
-Anticoagulation with Eliquis.
#Chronic CHF preserved EF
-Volume status compensated
-Continue current regimen including metoprolol, Lipitor, apixaban, oral Lasix
#IDDM 2
-Continue diabetic diet
-Continue insulin
-Continue basal bolus protocol with serial Accu-Cheks
#Diabetic neuropathy.
-Continue baclofen and Neurontin
#GERD
-PPI continued
#DVT
eliquis
#CODE status
-full code
--- NOTE | 2025-04-11 17:51 | W.PN.UPDATE ---
Update Note
Progress Note Update
This note serves as an addendum to the H&P by core drill operator helper MIRIAM Tara WINN
HPI
74M Obese , EARL HX CAD, A Fib , CHF seen at ER
- came in after a near syncopal episode precceded lightheadedness on the toilet attempting BM
- No events on pacemaker interrogation and troponin normal.
- continues to complain of dizziness and nausea.
- EMS reports that he was unconscious for a few minutes but patient denies
Patient was hoping that EMS would just help him get off the toilet but they insisted that he come to the ED to get evaluated.
Vital Signs
Temp Pulse Resp BP Pulse Ox
98.2 F 60 15 130/63 96
04/11/25 14:42 04/11/25 16:45 04/11/25 16:30 04/11/25 16:00 04/11/25 16:45
PE
Gen:Obese
HEENT: moist OM, multiple intact vesicles present on mid lower lip
Neck: no JVD
Lungs: CTA
Cor: RR S1S2
MS:
Relevant data
WCC 10.5 Hgb 11.5
Cr 1.5 is at baseline ( Baseline Cr 1.4 )
eGFR 47 ( baseline low 50s)
NEG TPNI
EKG
Ventricular-paced rhythm WITH OCCASIONAL PREMATURE VENTRICULAR COMPLEXES
ABNORMAL ECG
WHEN COMPARED WITH ECG OF 05-FEB-2025 20:20,
PREMATURE VENTRICULAR COMPLEXES ARE NOW PRESENT
VENT. RATE HAS INCREASED BY 14 BPM
Confirmed by MD OMAR, KRYSTA Buckner ([id number]) on 04/11/2025 4:15:46 PM
CXR: No acute cardiopulmonary process.
09/23/24 TTE
LVEF 55
Possible basal inferior wall hypokinesis. Wall motion is also consistent with conduction abnormality.
Normal right ventricular size and function.
Pacer wire present.
Aortic sclerosis without stenosis.
Last hospitalist admission: 02/05/2025 - 02/09/2025
DISCHARGE DIAGNOSIS: Failure to thrive.
OTHER CONDITIONS:
1. Chronic kidney disease stage IIIB.
2. Chronic heart failure, preserved ejection fraction.
3. Dyslipidemia.
4. Type 2 diabetes, insulin requiring.
5. Permanent atrial fibrillation, status post PPM.
6. Anticoagulation with Eliquis.
7. Coronary artery disease.
8. Essential hypertension.
9. Chronic back pain.
10. Sleep apnea.
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
ASSESSMENT & PLAN
Pending Rx reconciliation
Near Syncope vs syncope with attemted defecation
Presumed vasovagal syncope
Preceded by lightheadedness
Prior HX syncope
- Fall precaution
- ortho VS
- PT
PPM
- no events on PPM interrogation
Permanent AF
s/p PPM.
- on chr Eliquis.
Known HX
HX chronic ambulatory deficiency
Known R adrenal adenoma
Recurrent mild bilirubinemia. no abdominal pain
IR DM type 2 with nephropathy : Insulin SS, DM diet, AccuCheck
CKD3b
chr HFpEF
Dyslipidemia.
CAD
Essential HTN
Chronic back pain.
Sleep apnea.
Incidentaloma.
DVT Px: SQH
Full code
IP TLM
--- NOTE | 2025-04-11 18:01 | PHANOTE ---
med rec note- patient does not know his medication, states a nurse comes out and does his medication, looks like she come be from [place], patient stated she has not been out for a couple of days, ecw looks like he has 5 appointment and cancelled
all of them.
--- NOTE | 2025-04-11 18:02 | W.PN.UPDATE ---
Update Note
Progress Note Update
This note serves as an addendum to the H&P by special needs bus driver MIRIAM Tara WINN
HPI
74M Obese , EARL HX CAD, A Fib , CHF seen at ER
- came in after a near syncopal episode precceded lightheadedness on the toilet attempting BM
- No events on pacemaker interrogation and troponin normal.
- continues to complain of dizziness and nausea.
- EMS reports that he was unconscious for a few minutes but patient denies
Patient was hoping that EMS would just help him get off the toilet but they insisted that he come to the ED to get evaluated.
Relevant VS
Vital Signs
Temp Pulse Resp BP Pulse Ox
98.2 F 60 15 130/63 96
04/11/25 14:42 04/11/25 16:45 04/11/25 16:30 04/11/25 16:00 04/11/25 16:45
PE
Gen:
HEENT: moist OM, multiple intact vesicles present on mid lower lip
Neck: no JVD
Lungs: CTA
Cor: RR S1S2
Abdomen:
VALET MANAGER:
MS:
Psych:
Relevant data
WCC 10.5 Hgb 11.5
Cr 1.5 is at baseline ( Baseline Cr 1.4 )
eGFR 47 ( baseline low 50s)
NEG TPNI
CXR: No acute cardiopulmonary process.
EKG
Ventricular-paced rhythm WITH OCCASIONAL PREMATURE VENTRICULAR COMPLEXES
ABNORMAL ECG
WHEN COMPARED WITH ECG OF 05-FEB-2025 20:20,
PREMATURE VENTRICULAR COMPLEXES ARE NOW PRESENT
VENT. RATE HAS INCREASED BY 14 BPM
Confirmed by MD OMAR, KRYSTA Buckner ([id number]) on 04/11/2025 4:15:46 PM
09/23/24 TTE
LVEF 55
Possible basal inferior wall hypokinesis. Wall motion is also consistent with conduction abnormality.
Normal right ventricular size and function.
Pacer wire present.
Aortic sclerosis without stenosis.
Last hospitalist admission: 02/05/2025 - 02/09/2025
DISCHARGE DIAGNOSIS: Failure to thrive.
OTHER CONDITIONS:
1. Chronic kidney disease stage IIIB.
2. Chronic heart failure, preserved ejection fraction.
3. Dyslipidemia.
4. Type 2 diabetes, insulin requiring.
5. Permanent atrial fibrillation, status post PPM.
6. Anticoagulation with Eliquis.
7. Coronary artery disease.
8. Essential hypertension.
9. Chronic back pain.
10. Sleep apnea.
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
ASSESSMENT & PLAN
Pending Rx reconciliation
Near Syncope vs syncope with attemted defecation
Presumed vasovagal syncope
Preceded by lightheadedness
Prior HX syncope
- Fall precaution
- ortho VS
- PT
PPM
- no events on PPM interrogation
Permanent AF
s/p PPM.
- on chr Eliquis.
Known HX
HX chronic ambulatory deficiency
Known R adrenal adenoma
Recurrent mild bilirubinemia. no abdominal pain
IR DM type 2 with nephropathy : Insulin SS, DM diet, AccuCheck
CKD3b
chr HFpEF
Dyslipidemia.
CAD
Essential HTN
Chronic back pain.
Sleep apnea.
Incidentaloma.
DVT Px: SQH
Full code
OBS TLM
[2025-04-11 21:21] LABS: Glucose - Point of Care 191 mg/dl (70-99)
[2025-04-11] MEDS: NEURONTIN PO (22:00)
[2025-04-11] MEDS: BUSPAR 10 MG PO (22:01)
[2025-04-11] MEDS: NEURONTIN 600 MG PO (22:02)
[2025-04-11] MEDS: LIPITOR 10 MG PO (22:02)
[2025-04-11] MEDS: ELIQUIS 5 MG PO (22:02)
[2025-04-11] MEDS: LANTUS 0.07 UNITS SC (22:03)
[2025-04-11] MEDS: ADVAIR HFA 45/21 MCG INHALER 2 PUFF INH (22:39)
[2025-04-12] VITALS (8 sets, daily range): BP systolic 103–157; BP diastolic 46–80; PULSE 2–85; BMI 34.1
[2025-04-12] MEDS: ROXICODONE 5 MG PO (04:22)
[2025-04-12] MEDS: TYLENOL 650 MG PO (05:56)
[2025-04-12 07:44] LABS: Glucose - Point of Care 118 mg/dl (70-99)
[2025-04-12] MEDS: NOVOLOG FLEXPEN-LOW RESISTANCE SC ×2 (07:52→16:55)
[2025-04-12] MEDS: NEURONTIN 300 MG PO ×2 (08:14→17:07)
[2025-04-12] MEDS: LEXAPRO 20 MG PO (08:14)
[2025-04-12] MEDS: ELIQUIS 5 MG PO ×2 (08:15→20:32)
[2025-04-12] MEDS: PROTONIX 40 MG PO (08:15)
[2025-04-12] MEDS: BUSPAR 10 MG PO ×2 (08:15→20:32)
[2025-04-12] MEDS: ADVAIR HFA 45/21 MCG INHALER 2 PUFF INH ×2 (08:15→19:59)
[2025-04-12 10:03] LABS: Blood Urea Nitrogen 19 mg/dl (9-20); Calcium 8.4 mg/dl (8.4-10.2); Carbon Dioxide 23 mmol/L (22-30); Chloride 106 mmol/L (98-107); Estimated Creatinine Clearance 57 ml/min; Glucose 130 mg/dl (70-99); Potassium 3.9 mmol/L (3.5-5.1); Sodium 135 mmol/L (135-145); eGFR 52.09
--- NOTE | 2025-04-12 10:22 | VNURNOTE ---
Chart reviewed. Patient is current with VN. Will continue to follow hospital course and DC plans.
[2025-04-12 11:42] LABS: Glucose - Point of Care 176 mg/dl (70-99)
[2025-04-12] MEDS: NOVOLOG FLEXPEN-LOW RESISTANCE 1 UNITS SC (11:44)
[2025-04-12 12:01] LABS: Glycohemoglobin (HgbA1c) 5.7 % (4.0-5.6)
--- NOTE | 2025-04-12 13:26 | W.PN.HOSP.TC ---
Today's Communication/Plan
-
Check orthostatic vital signs once
Hold Lasix
Cut back on metoprolol to 12.5 mg twice daily
500 mL of IV fluids
PT OT consult
Discharge planning for possible discharge tomorrow
Assessment / Plan
Assessment / Plan
74-year-old with near syncope. Patient was on the toilet attempting to have a bowel movement felt lightheaded and nauseous almost passed out. Patient has no other complaints now except for neuropathy in the right leg and low back pain. Patient
has a history of lumbar laminectomy
Chest x-ray-no acute process
Awake alert oriented
Cardiovascular system S1-S2 appreciated
Chest clear to auscultation
Abdomen soft and nontender
Bilateral lower extremity good strength in the peripheral muscles
Complains of pain down the right leg and the low back
# Near-syncope
Likely vasovagal
Or mild dehydration/NAOMI secondary to diarrhea/heat/Lasix
Check orthostatic vital signs once
No events on pacemaker interrogation
Troponin is normal
# Diarrhea
If patient has more diarrhea get stool studies
None since admission
x-ray of the abdomen no constipation
# Acute kidney [id number] up with IV fluids. Hold Lasix
# Sciatica with pain radiating to the right leg-check lumbar spine x-ray. Keep Lidoderm patch
# Coronary disease -continue Beta-smooth, Statin, Eliquis
# Persistent Atrial fibrillation-continue Eliquis, metoprolol cut back metoprolol to 12.5 mg.
# History of pacemaker placement for Heart block
# Chronic HFpEF
Continue Metoprolol, Hold Lasix in the setting of diarrhea and acute kidney injury
Will cut back Lasix to 60 mg for discharge
# Chronic anemia
# Hyperlipidemia-continue statin
# Diabetes-hemoglobin A1c- 5.7
Diabetic neuropathy-continue gabapentin
Patient uses Lantus insulin 7 units at bedtime and 6 units AC at home
Continue Lantus 7 units and sliding scale coverage
# Anxiety/depression-continue buspirone, Lexapro
# COPD-continue Advair or equivalent
# GERD-PPI
# Ambulatory dysfunction/chronic back pain/sciatica
# Sleep apnea-BIPAP
# H/O C diff
# Obesity with a BMI of 34
# DVT prophylaxis-Eliquis
# Full code
Discussed with nursing
Called Sister and updated
PT OT consult
Part of this note was created using voice recognition system. Occasional wrong word or��sound alike� substitutions may have inadvertently occurred due to the inherent limitations of voice recognition software. If noted kindly bring it to my
attention for correction.
Anticipated Discharge: Within 24 hours
Subjective/Interval History
-
Date of Service: April 12, 2025
Objective Data
-
Labs:
Laboratory Results
04/12/25
08:56
WBC Pending
Hgb Pending
Hct Pending
Plt Count Pending
Sodium 135
Potassium 3.9
Chloride 106
Carbon Dioxide 23
BUN 19
Creatinine 1.4 H
Glucose 130 H
Calcium 8.4
Vital Signs:
Vital Signs
Temp Pulse Resp BP Pulse Ox
97.5 F 70 16 157/80 95
04/12/25 11:45 04/12/25 11:45 04/12/25 11:45 04/12/25 11:45 04/12/25 11:45
I&O
04/11/25 04/12/25 04/13/25
06:59 06:59 06:59
Intake Total 480 / 480
Balance 480 / 480
[2025-04-12] MEDS: LIDOCAINE 4% PATCH 1 PATCH TOPICAL (14:48)
[2025-04-12] MEDS: NSS 500 IV (14:49)
[2025-04-12 15:05] LABS: Hematocrit 31.6 % (39.0-52.0); Hemoglobin 10.6 g/dL (13.0-18.0); Mean Corp Hgb Conc. 34.2 g/dL (33.0-37.0); Mean Corpuscular Volume 91.4 fL (80.0-94.0); Platelet Count 132 10^3/uL (130-400); Red Cell Dist. Width 15.4 % (11.5-14.5)
[2025-04-12 16:32] LABS: Glucose - Point of Care 107 mg/dl (70-99)
--- NOTE | 2025-04-12 16:56 | CM ---
Late entry from today at 2:16pm:
CM met with Wisam at bedside to complete IA.
He resides alone in a apartment with elevator access, reports being non-ambulatory; (I) with transfers from bed/chair and able to self propel his W/C.
He only bathes with assistance
Has private duty 2x weekly Fri/Sat and his brother in-law assists as well
His sister providers assistance with errands and shopping
He is current with [facility]
Plan: Discharge to prior living situation with resumption of [facility].
[2025-04-12] MEDS: REMOVE LIDOCAINE PATCH 1 PATCH REMOVE (20:33)
[2025-04-12 21:09] LABS: Glucose - Point of Care 159 mg/dl (70-99)
[2025-04-12] MEDS: LANTUS 0.07 UNITS SC (21:33)
[2025-04-12] MEDS: LIPITOR 10 MG PO (21:33)
[2025-04-12] MEDS: NEURONTIN 600 MG PO (21:33)
[2025-04-13] VITALS (9 sets, daily range): BP systolic 113–189; BP diastolic 55–78; PULSE 2–63; O2SAT 92
[2025-04-13] MEDS: ADVAIR HFA 45/21 MCG INHALER 2 PUFF INH (06:26)
[2025-04-13 07:58] LABS: Glucose - Point of Care 133 mg/dl (70-99)
[2025-04-13] MEDS: NOVOLOG FLEXPEN-LOW RESISTANCE SC ×2 (08:10→16:51)
[2025-04-13] MEDS: ELIQUIS 5 MG PO (08:14)
[2025-04-13] MEDS: NEURONTIN 300 MG PO ×2 (08:15→16:56)
[2025-04-13] MEDS: TOPROL XL 12.5 MG PO ×2 (08:16→17:38)
[2025-04-13] MEDS: PROTONIX 40 MG PO (08:17)
[2025-04-13] MEDS: LEXAPRO 20 MG PO (08:17)
[2025-04-13] MEDS: LIDOCAINE 4% PATCH 1 PATCH TOPICAL (08:18)
[2025-04-13] MEDS: BUSPAR 10 MG PO (08:19)
[2025-04-13 09:19] LABS: Blood Urea Nitrogen 18 mg/dl (9-20); Calcium 8.3 mg/dl (8.4-10.2); Carbon Dioxide 27 mmol/L (22-30); Chloride 106 mmol/L (98-107); Estimated Creatinine Clearance 57 ml/min; Glucose 123 mg/dl (70-99); Potassium 4.0 mmol/L (3.5-5.1); Sodium 138 mmol/L (135-145); eGFR 52.09
[2025-04-13 12:08] LABS: Glucose - Point of Care 169 mg/dl (70-99)
[2025-04-13] MEDS: NOVOLOG FLEXPEN-LOW RESISTANCE 1 UNITS SC (12:28)
--- NOTE | 2025-04-13 15:03 | W.PN.HOSP.TC ---
Addendum entered and electronically signed by Rd Pichardo MD 04/13/25 17:31:
BP noted. Will add metoprolol 25 mg back
Addendum entered and electronically signed by Rd Pichardo MD 04/13/25 17:28:
Dictation- [id number]
Addendum entered and electronically signed by Rd Pichardo MD 04/13/25 15:14:
I discussed with Dr. Adam who is patient's outpatient lapeler. He is okay with patient cutting back Lasix to 40 mg daily. Patient needs to keep an eye on his weight and follow-up with him in a couple of months.
Original Note:
Today's Communication/Plan
-
Discharge
Assessment / Plan
Assessment / Plan
74-year-old with near syncope. Patient was on the toilet attempting to have a bowel movement felt lightheaded and nauseous almost passed out. Patient has no other complaints now except for neuropathy in the right leg and low back pain. Patient
has a history of lumbar laminectomy
Chest x-ray-no acute process
L-spine v-kpf-yikpqzkdrjvy changes
States that food here is delicious and makes him gain weight.
Awake alert oriented
Sitting in the chair
Cardiovascular system S1-S2 appreciated
Chest clear to auscultation
Abdomen soft and nontender
Bilateral lower extremity good strength in the peripheral muscles
# Near-syncope
Likely vasovagal
Or mild dehydration/NAOMI secondary to diarrhea/heat/Lasix
Check orthostatic vital signs once
No events on pacemaker interrogation
Troponin is normal
# Diarrhea
None since admission
x-ray of the abdomen no constipation
# Acute kidney gojafn-rdeahr-volrbk up with IV fluids. Hold Lasix
# Sciatica with pain radiating to the right leg-check lumbar spine x-ray. Keep Lidoderm patch
# Coronary disease -continue Beta-smooth, Statin, Eliquis
# Persistent Atrial fibrillation-continue Eliquis, metoprolol cut back metoprolol to 12.5 mg.
# History of pacemaker placement for Heart block
# Chronic HFpEF
Continue Metoprolol, Hold Lasix in the setting of diarrhea and acute kidney injury
Will cut back Lasix to 60 mg for discharge
# Chronic anemia
# Hyperlipidemia-continue statin
# Diabetes-hemoglobin A1c- 5.7
Diabetic neuropathy-continue gabapentin
Patient uses Lantus insulin 7 units at bedtime and 6 units AC at home
Continue Lantus 7 units and sliding scale coverage
# Anxiety/depression-continue buspirone, Lexapro
# COPD-continue Advair or equivalent
# GERD-PPI
# Ambulatory dysfunction/chronic back pain/sciatica
# Sleep apnea-BIPAP
# H/O C diff
# Obesity with a BMI of 34
# DVT prophylaxis-Eliquis
# Full code
Discussed with nursing
Called Sister and updated yesterday 04/12/2025 .
PT OT consult home health
Part of this note was created using voice recognition system. Occasional wrong word or��sound alike� substitutions may have inadvertently occurred due to the inherent limitations of voice recognition software. If noted kindly bring it to my
attention for correction.
Anticipated Discharge: Today
Subjective/Interval History
-
Date of Service: April 13, 2025
Objective Data
-
Labs:
Laboratory Results
04/13/25
08:24
Sodium 138
Potassium 4.0
Chloride 106
Carbon Dioxide 27
BUN 18
Creatinine 1.4 H
Glucose 123 H
Calcium 8.3 L
Vital Signs:
Vital Signs
Temp Pulse Resp BP Pulse Ox
98.3 F 67 17 118/69 90
04/13/25 11:10 04/13/25 11:10 04/13/25 11:10 04/13/25 14:27 04/13/25 11:10
I&O
04/12/25 04/13/25 04/14/25
06:59 06:59 06:59
Intake Total 480 / 480 660 / 660
Balance 480 / 480 660 / 660
--- NOTE | 2025-04-13 15:22 | W.DS.TRANS ---
DC Summary - Alternative Dispute Resolution Mediator
-
Discharge Instructions:
Discharge Diagnosis/Procedures Presyncope
Sciatica
Coronary artery disease
Persistent defibrillation
Pacemaker
Chronic HFpEF
Diabetes
High cholesterol
Anxiety and depression
COPD
Ambulatory dysfunction
Diet Diabetic, Carb Controlled,2 Gram Sodium,Restrict
fluids to 64 oz
Activity As tolerated,With assistance
Driving Restrictions No driving
Other Services VN,PT,OT
Instructions:
Stand-Alone Forms:
Changes to Home Medications: Yes
Discharge Medications:
DC Medications w/original date entered in [employer]
atorvastatin 10 mg tablet (Lipitor) 10 mg PO HS High cholesterol 09/04/22
escitalopram oxalate 20 mg tablet (Lexapro) 20 mg PO DAILY Depression 09/04/22
apixaban 5 mg tablet (Eliquis) 5 mg PO BID Blood thinner #30 tabs 05/06/23
buspirone 10 mg tablet 10 mg PO BID Mental Health/Anxiety 11/27/23
pantoprazole 40 mg tablet,delayed release (Protonix) 40 mg PO DAILY Gastrointestinal Issue 11/27/23
polyvinyl alcohol-povidone (PF) 1.4 %-0.6 % eye drops in a dropperette (Refresh Classic (PF)) 1 drops BOTH EYES QIDPRN PRN dry eyes 04/09/24
polyethylene glycol 3350 17 gram oral powder packet (HealthyLax) 17 g PO DAILYPRN PRN constipation #0 ea 10/04/24
insulin glargine 100 unit/mL (3 mL) subcutaneous pen (Lantus Solostar U-100 Insulin) 7 unit SC HS Diabetes 12/28/24
ondansetron 4 mg disintegrating tablet 4 mg PO Q8HPRN PRN nausea and vomiting 12/28/24
sennosides 8.6 mg-docusate sodium 50 mg tablet 1 tab PO BIDPRN PRN constipation #15 tabs 02/09/25
baclofen 5 mg tablet 5 mg PO BIDPRN PRN spasms 04/11/25
gabapentin 300 mg capsule 300 mg PO BID Pain 04/11/25
fluticasone 100 mcg-salmeterol 50 mcg/dose blistr powdr for inhalation (Advair Diskus) 1 inh inhalation R BID Lung/breathing issues #0 ea 04/13/25
furosemide 80 mg tablet 40 mg (1/2 x 80 mg) PO DAILY Fluid Retention/Swelling #30 tabs 04/13/25
gabapentin 600 mg tablet 600 mg PO HS Neurological Condition #0 tabs 04/13/25
insulin lispro 100 unit/mL subcutaneous pen 6 sliding scale dose SC AC Diabetes #0 mL 04/13/25
lidocaine 4 % topical patch 1 patch topical DAILY Pain #0 ea 04/13/25
metoprolol succinate 25 mg tablet,extended release 24 hr 12.5 mg (1/2 x 25 mg) PO DAILY #30 tabs 04/13/25
polyethylene glycol 3350 17 gram oral powder packet 17 g PO DAILYPRN PRN constipation #0 ea 04/13/25
Home Medication Changes
miralax new
Lasix and Metoprolol decreased.
Pending Results: No
--- NOTE | 2025-04-13 15:28 | CM ---
Pt is cleared for discharge to home today. NILDA called his sister to make her aware of same. Initially she balked at discharge, however since the transport is scheduled for 6:30 this evening, she was agreeable. Pt will have dinner prior to leaving
the hospital today.
IMM provided and signed by Wisam.
Plan: Discharge to home this evening at 6:30PM. [facility] will continue to follow.
[2025-04-13] MEDS: TYLENOL 650 MG PO (15:41)
[2025-04-13 16:46] LABS: Glucose - Point of Care 121 mg/dl (70-99)
== END 2025-04-13 18:46 | disposition home health service (06) ==
LOC: 3 WEST ACU 18:37
PROVIDERS: Emergency Medicine; Registered Nurse; ADMITTING PHYSICIAN Internal Medicine; ATTENDING PHYSICIAN Hospitalist; EMERGENCY PHYSICIAN Emergency Medicine; FAMILY PHYSICIAN Internal Medicine
DX: R55 Syncope and collapse (principal); I25.10 Atherosclerotic heart disease of native coronary artery without angina pectoris; J44.9 Chronic obstructive pulmonary disease, unspecified; F32.A Depression, unspecified; F41.9 Anxiety disorder, unspecified; E78.00 Pure hypercholesterolemia, unspecified; E11.22 Type 2 diabetes mellitus with diabetic chronic kidney disease; I50.32 Chronic diastolic (congestive) heart failure; R19.7 Diarrhea, unspecified; I48.21 Permanent atrial fibrillation; E11.40 Type 2 diabetes mellitus with diabetic neuropathy, unspecified; N17.9 Acute kidney failure, unspecified; K21.9 Gastro-esophageal reflux disease without esophagitis; G89.29 Other chronic pain; M54.31 Sciatica, right side; E66.9 Obesity, unspecified; D35.01 Benign neoplasm of right adrenal gland; I13.0 Hypertensive heart and chronic kidney disease with heart failure and stage 1 through stage 4 chronic kidney disease, or unspecified chronic kidney disease; R62.7 Adult failure to thrive; N18.32 Chronic kidney disease, stage 3b; D63.1 Anemia in chronic kidney disease; G47.33 Obstructive sleep apnea (adult) (pediatric); Z68.34 Body mass index [BMI] 34.0-34.9, adult; Z79.01 Long term (current) use of anticoagulants; Z79.4 Long term (current) use of insulin; Z79.899 Other long term (current) drug therapy; Z95.0 Presence of cardiac pacemaker
CPT/HCPCS: 71046; 72110; 74019; 80048; 82962; 83036; 84484; 85025; 85027; 93005; 94640; 94660; 96374; 97162; 97167; 99285; G0378

== ENCOUNTER 2025-07-18 10:25 | Emergency (ER) | payer MEDICARE, SELFPAY ==
[2025-07-18] VITALS (7 sets, daily range): BP systolic 128–189; BP diastolic 78–116; BMI 33.4
--- NOTE | 2025-07-18 11:14 | ED.GENMED ---
History of Present Illness
<Trinity Cash PERFORATOR LOADER - Last Filed: 07/18/25 16:58>
General
Chief Complaint: Failure to Thrive
Source: patient
Exam Limitations: none
Time Seen by Provider: 07/18/25 10:47
Nursing documentation reviewed up to this point in time: agreed with
History of Present Illness
History of Present Illness:
74-year-old male with history of asthma, sleep apnea on BiPAP, COPD, e,cad, pacemaker, CHF PEF, IDDM, HLD, anxiety/depression, ambulatory dysfunction, lives at home by himself, [id number]-vl-[id number] comes in the a.m. and p.m. to get him his meals and clean
him up. He has an aide coming once a week to shower him. He gets PT and OT twice weekly. Patient presents for increasing swelling, redness and pain of right lower extremity. He states both legs are more swollen than usual and 'the Lasix is not
working.'
He denies fever or chills. Denies shortness of breath or chest pain. Denies abdominal pain
Past History
<Trinity Cash PERFORATOR LOADER - Last Filed: 07/18/25 16:58>
Past History
ED Past Medical History: Arrthythmia (Atrial fib), Asthma, CHF, COPD, HTN, IDDM, MD (Denies) and Other (Sleep apnea uses CPAP, Neuropathy, PNA, )
ED Past Surgical History: Cardiac (Pacemaker for III degree heart block), Orthopedic (Right hip surgery, Back surgery, ) and Tonsilectomy
Social History
Tobacco: Non-smoker
Alcohol: None
Personal: Single
Living: with family (Sister)
Family History
Family History: Unable to obtain
Review of Systems
<Trinity Cash PERFORATOR LOADER - Last Filed: 07/18/25 16:58>
Review of Systems
Allergies reviewed?: Yes
All Other Systems: ROS reviewed and negative except as documented in HPI and ROS
Phy Exam
<Trinity Cash, PERFORATOR LOADER - Last Filed: 07/18/25 16:58>
Physical Exam
Physical Exam:
GENERAL: No acute distress. A&Ox3.
CONSTITUTIONAL: Afebrile.
EYES: clear, conjunctivae normal
ENMT: moist mucus membranes, Pharynx nl
RESPIRATORY: Regular respirations, nonlabored, lungs clear.
CARDIOVASCULAR: Regular rate and rhythm, no murmurs, no rubs. Palpable bilateral pedal pulses, feet are pink, warm
GI: Soft, nontender, normal BS
MUSCULOSKELETAL: Moves with ease. Well perfused. Bilateral lower extremity edema, right greater than left including feet.
SKIN: Warm, dry, pink. Right lower extremity, anterior aspect with 12 x 15 cm area mild erythema, abrasions. Large bullous blister right heel covered with sponge dressing. Surrounding skin is normal.
PSYCH: Normal mood and affect. Well kept, interactive and appropriate
NEUROLOGIC: Awake, alert and oriented. No focal neurological deficits
Course
<Trinity Cash, PERFORATOR LOADER - Last Filed: 07/18/25 16:58>
Orders/Labs/Results
Orders:
Orders
07/18/25 11:24
Complete Blood Count/With Diff Urgent
Comprehensive Metabolic Panel Urgent
NT-proBNP Urgent
Comment: ADD ON
07/18/25 11:33
US Periph Venous LOWER Ext RT Urgent
Comment:
Reason For Exam: swelling, redness
07/18/25 14:12
Case Management Consult ONCE
Case Management Consult: Discharge Planning
Comment: Pt can be discharged with cellulitis RLE. He has every excuse in the world why he can't go home.
There is no medical reason to admit. Please evaluate. Thank you!
07/18/25 14:36
Add On- LAB Urgent
Tests Added?: BNP
CR Chest - 2 Views Urgent
Comment:
Reason For Exam: legs swelling, SOB
07/18/25 15:29
Doxycycline [Vibramycin] 100 mg PO NOW STA
Abnormal Lab Results
07/18/25
11:24
RBC 4.12 L 10^6/uL
(4.70-6.10)
Hgb 12.8 L g/dL
(13.0-18.0)
Hct 37.4 L %
(39.0-52.0)
MCH 31.1 H pg
(27.0-31.0)
RDW 15.5 H %
(11.5-14.5)
MPV 13.0 H fL
(7.4-10.4)
Abs Immat Gran (auto) 0.1 H 10^3/uL
(0-0.05)
Immature Gran % 1.0 H %
(0-0.5)
BUN 21 H mg/dl
(9-20)
Glucose 114 H mg/dl
(70-99)
Total Bilirubin 1.5 H mg/dl
(0.2-1.3)
07/18/25 11:24
07/18/25 11:24
Vital Signs
Initial and Last Documented VS:
Initial Vital Signs
Temp Pulse Resp BP Pulse Ox
98.2 F 53 12 189/78 98
07/18/25 10:29 07/18/25 10:29 07/18/25 10:29 07/18/25 10:29 07/18/25 10:29
Last Documented Vital Signs
Temp Pulse Resp BP Pulse Ox
98.2 F 76 17 168/99 95
07/18/25 10:29 07/18/25 15:00 07/18/25 15:00 07/18/25 15:00 07/18/25 15:00
Public Relations Senior Associate consulted with Physician
Public Relations Senior Associate consulted with physician?: Yes
Name of Physician Consulted: Shaista
<Sandy Noonan, DO - Last Filed: 07/18/25 14:41>
Orders/Labs/Results
Orders:
Orders
07/18/25 11:24
Complete Blood Count/With Diff Urgent
Comprehensive Metabolic Panel Urgent
NT-proBNP Urgent
Comment: ADD ON
07/18/25 11:33
US Periph Venous LOWER Ext RT Urgent
Comment:
Reason For Exam: swelling, redness
07/18/25 14:12
Case Management Consult ONCE
Case Management Consult: Discharge Planning
Comment: Pt can be discharged with cellulitis RLE. He has every excuse in the world why he can't go home.
There is no medical reason to admit. Please evaluate. Thank you!
07/18/25 14:36
Add On- LAB Urgent
Tests Added?: BNP
CR Chest - 2 Views Urgent
Comment:
Reason For Exam: legs swelling, SOB
07/18/25 15:29
Doxycycline [Vibramycin] 100 mg PO NOW STA
Abnormal Lab Results
07/18/25
11:24
RBC 4.12 L 10^6/uL
(4.70-6.10)
Hgb 12.8 L g/dL
(13.0-18.0)
Hct 37.4 L %
(39.0-52.0)
MCH 31.1 H pg
(27.0-31.0)
RDW 15.5 H %
(11.5-14.5)
MPV 13.0 H fL
(7.4-10.4)
Abs Immat Gran (auto) 0.1 H 10^3/uL
(0-0.05)
Immature Gran % 1.0 H %
(0-0.5)
BUN 21 H mg/dl
(9-20)
Glucose 114 H mg/dl
(70-99)
Total Bilirubin 1.5 H mg/dl
(0.2-1.3)
07/18/25 11:24
07/18/25 11:24
Vital Signs
Initial and Last Documented VS:
Initial Vital Signs
Temp Pulse Resp BP Pulse Ox
98.2 F 53 12 189/78 98
07/18/25 10:29 07/18/25 10:29 07/18/25 10:29 07/18/25 10:07/18/25 10:29
Last Documented Vital Signs
Temp Pulse Resp BP Pulse Ox
98.2 F 76 17 168/99 95
07/18/25 10:29 07/18/25 15:00 07/18/25 15:00 07/18/25 15:00 07/18/25 15:00
<Trinity Cash PERFORATOR LOADER - Last Filed: 07/18/25 16:58>
MDM/Problems Addressed
Differential Diagnosis Includes:
DVT: Cellulitis
MDM/Problems Addressed:
74-year-old male with history of asthma, sleep apnea on BiPAP, COPD, e,cad, pacemaker, CHF PEF, IDDM, HLD, anxiety/depression, ambulatory dysfunction, lives at home by himself, [id number]-yu-hws comes in the a.m. and p.m. to get him his meals and clean
him up. He has an aide coming once a week to shower him. He gets PT and OT twice weekly. Patient presents for increasing swelling, redness and pain of right lower extremity. He states both legs are more swollen than usual and 'the Lasix is not
working.' States he had a teleconference with his PCP Dr. Mar a month ago and that is when his Lasix was increased.
He denies fever or chills. Denies new shortness of breath, denies chest pain. Denies abdominal pain
No respiratory embarrassment, lungs CTA, no hypoxemia
Bullous blister on right heel 6 x 6 cm filled with clear fluid, cleansed with betadine, small puncture made with sterile needle and fluid drained. Skin covering remains intact. Sponge dressing applied.
CBC with no clinically significant abnormality
CMP with no clinically significant abnormality
1:30 PM:
Ultrasound right lower extremity radiology report reviewed, no evidence of DVT at the level of the popliteal veins. The peroneal and posterior tibial veins were not well-visualized on this exam
3:30 p.m.
BNP 1950
CXR: Radiology report read: No acute cardiopulmonary abnormality.
Patient is stable for discharge
Rx for doxycycline sent to his pharmacy, first dose given here
Diagnosis: Mild cellulitis right lower extremity
Dr. Gilbert into examine patient and agrees with assessment and plan
<Trinity Cash PERFORATOR LOADER - Last Filed: 07/18/25 16:58>
*Pulse Oximetry
SaO2: 95
Oxygen Mode of Delivery: Room air
Patient hypoxic: no
*Critical Care Note
Total Time (30-74mins, 75-104mins- exclusive of procedures): Not Applicable
<Trinity Cash PERFORATOR LOADER - Last Filed: 07/18/25 16:58>
Patient Management
Social determinants of health affecting care: Other (Patient states his arqvmvs-oi-cql comes in the morning and gives him breakfast and cleaned him up, comes in the evening and gets his dinner, has ate once a week for showering, has PT and OT each
twice weekly.)
ED Attending Note
<Trinity Cash PERFORATOR LOADER - Last Filed: 07/18/25 16:58>
-
Portions of this chart may have been created with voice recognition software.� Occasional wrong word or��sound alike� substitutions may have occurred due to the inherent limitations of voice recognition software.
<Sandy Noonan DO - Last Filed: 07/18/25 14:41>
ED Attending Note
Patient seen and examined by attending physician: Yes
I performed the substantive portion of visit, reviewed & personally made and approve the management plan that is documented in note by myself or MIRIAM.: Yes
I performed a history and physical exam of patient and discussed management with resident, I reviewed resident's note and agree with documented findings and plan of care.: Yes
ED Attending Note:
74-year-old male with history of COPD, sleep apnea on BiPAP, Tdap, diabetes, ambulatory issues presenting to the emergency department for bilateral lower extremity swelling, right greater than left. Notes that he has been taking Lasix, however is
not helping. Patient is minimally ambulatory at home, his brother will help him to the bathroom twice a day. Notes redness in the right leg. Denies fever. Denies chest pain. Does note some chronic dyspnea.
Vital signs are significant for high blood pressure, however improved without intervention. On exam patient is in no acute respiratory distress. Unremarkable cardiac and pulmonary exam. On examination of the lower extremities, bilateral pitting
edema with right greater than left with generalized redness to the right anterior givens. No significant wounds. DVT a consideration given patient's essentially nonambulatory status. Ultrasound obtained, no DVT. Do suspect component of chronic
edema with possible cellulitis with redness to the right leg with increased swelling to the right leg in comparison to the left leg. Labs obtained which are unremarkable. Lower suspicion for CHF without any additional signs of volume overload on
exam. Feel patient is overall appropriate for discharge with outpatient antibiotic therapy with outpatient follow-up. Patient expresses issues with his social situation. Case management consulted note the patient has refused services in the past.
They were discussed with him but ultimately plan for discharge with outpatient management
Discharge Plan
Departure
Patient Disposition: Home (Routine Discharge)
Date of Disposition: 07/18/25
Time of Disposition: 15:30
Patient with high blood pressure during this ER visit?: No
Condition: Fair
Discharge Problem:
Cellulitis of right lower extremity
Instructions: Cellulitis (skin infection) in adults - ED (DC)
Prescriptions:
New
doxycycline hyclate 100 mg tablet
100 mg PO BID Qty: 20 0RF
No Action
atorvastatin [Lipitor] 10 mg Tablet
10 mg PO HS
escitalopram oxalate [Lexapro] 20 mg Tablet
20 mg PO DAILY
Eliquis 5 mg tablet
5 mg PO BID Qty: 30 0RF
pantoprazole [Protonix] 40 mg Tablet,Delayed Release (Dr/Ec)
40 mg PO DAILY
buspirone 10 mg Tablet
10 mg PO BID
Refresh Classic (PF) 1.4-0.6 % dropperette
1 drops BOTH EYES QIDPRN PRN (Reason: dry eyes)
insulin glargine [Lantus Solostar U-100 Insulin] 100 unit/mL (3 mL) insulin pen
7 unit SC HS
gabapentin 300 mg capsule
300 mg PO BID
gabapentin 600 mg Tablet
600 mg PO HS Qty: 0 0RF
furosemide 80 mg tablet
40 mg PO DAILY Qty: 30 0RF
metoprolol succinate 25 mg Tablet Extended Release 24 Hr
25 mg PO DAILY Qty: 30 0RF
Referrals:
UNKNOWN - PT DOES,NOT KNOW [Family Provider]
Interventions
Interventions:
*Risk Screen - Suicide Last Done: 07/18/25 10:29
*Neglect/Abuse Screening Last Done: 07/18/25 10:29
*ED- Fall Risk Assessment Last Done: 07/18/25 10:29
*ED COVID-19 Vaccine History Last Done: 07/18/25 10:29
*ED Influenza Vaccine History Last Done: 07/18/25 10:29
Discharge Date and Time
Print Language: DANISH
[2025-07-18 11:35] LABS: Hematocrit 37.4 % (39.0-52.0); Hemoglobin 12.8 g/dL (13.0-18.0); Mean Corp Hgb Conc. 34.2 g/dL (33.0-37.0); Mean Corpuscular Volume 90.8 fL (80.0-94.0); Nucleated Red Blood Cells % 0 % (-); Platelet Count 182 10^3/uL (130-400); Red Cell Dist. Width 15.5 % (11.5-14.5)
[2025-07-18 11:55] LABS: ALT (SGPT) 15 U/L (0-50); AST (SGOT) 20 U/L (17-59); Albumin 4.3 g/dl (3.5-5.0); Alkaline Phosphatase 96 U/L (38-126); Blood Urea Nitrogen 21 mg/dl (9-20); Calcium 9.1 mg/dl (8.4-10.2); Carbon Dioxide 28 mmol/L (22-30); Chloride 104 mmol/L (98-107); Estimated Creatinine Clearance 62 ml/min; Glucose 114 mg/dl (70-99); Potassium 4.2 mmol/L (3.5-5.1); Sodium 140 mmol/L (135-145); Total Protein 8.0 g/dl (6.3-8.2); eGFR 56.93
[2025-07-18] MEDS: VIBRAMYCIN 100 MG PO (15:45)
--- NOTE | 2025-07-18 16:23 | EDCM ---
CM received consult, pt for discharge but does not want to leave. I met with pt bedside in ED. Discussed that there is no reason to admit, discussed SNF but pt refuses. He told me there is 'no one there to receive him', confirmed that he lives alone
and there is not usually anyone there.
I called and spoke to his sister Kyra, they cannot transport him home but will supervisor picking crew his antibiotic at the pharmacy and her will go over to his apartment later today. She encouraged him to consider going to SNF but I told her he refused
when I spoke to him.
Transport arranged with [facility], pt stated he needed an ambulance, declined wheelchair van. Transport scheduled for 1630. Per sister, they need to assist him to his wheelchair and JAMES will go over tonight and help him to bed. I discussed this
with patient and told him to let ambulance crew know.
I notified Licha from [facility] that pt is being discharged home and will resume care.
No further CM needs at this time.
== END 2025-07-18 16:35 | disposition home or self-care (01) ==
LOC: EMR 10:25
PROVIDERS: Registered Nurse; EMERGENCY PHYSICIAN Student in an Organized Health Care Education/Training Program
DX: L03.115 Cellulitis of right lower limb (principal); E10.40 Type 1 diabetes mellitus with diabetic neuropathy, unspecified; I25.10 Atherosclerotic heart disease of native coronary artery without angina pectoris; I48.91 Unspecified atrial fibrillation; I44.2 Atrioventricular block, complete; I50.32 Chronic diastolic (congestive) heart failure; E78.5 Hyperlipidemia, unspecified; J44.89 Other specified chronic obstructive pulmonary disease; G47.30 Sleep apnea, unspecified; F41.9 Anxiety disorder, unspecified; F32.A Depression, unspecified; R26.9 Unspecified abnormalities of gait and mobility; Z87.01 Personal history of pneumonia (recurrent); Z79.4 Long term (current) use of insulin; Z95.0 Presence of cardiac pacemaker
CPT/HCPCS: 99284; 71046; 80053; 83880; 85025; 93971

== ENCOUNTER 2025-08-04 00:35 | Emergency (ER) | payer MEDICARE, SELFPAY ==
[2025-08-04 00:44] VITALS: BP 113/87
[2025-08-04 01:19] VITALS: BMI 33.3
[2025-08-04 01:22] VITALS: BP 131/59
[2025-08-04 02:00] VITALS: BP 117/49
[2025-08-04 03:00] VITALS: BP 132/66
--- NOTE | 2025-08-04 04:19 | ED.GENMED ---
History of Present Illness
General
Chief Complaint: Generalized Pain
Source: patient, ambulance crew and previous hospital records
Exam Limitations: none
Time Seen by Provider: 08/04/25 02:59
Nursing documentation reviewed up to this point in time: agreed with
History of Present Illness
History of Present Illness:
The patient is a 74-year-old male with a history of congestive heart failure with preserved EF, and chronic obstructive pulmonary disease (COPD), obstructive sleep apnea, on BiPAP, AICD/pacemaker, insulin-dependent diabetes, hyperlipidemia,
anxiety/depression, chronic neuropathy with chronic pain, chronic ambulatory dysfunction, who presented to the emergency department with difficulty breathing, a sensation of pressure on the top of the head, and stomach discomfort, including
constipation that was resolved with difficulty. The patient reports that he needed assistance from EMS to get from his bed to the bathroom. These symptoms have been ongoing, although the patient had a similar presentation two weeks ago and the
evaluation at that time, including blood work, chest X-ray, and ultrasound of the leg, showed no acute findings warranting hospital admission. The patient also reports concerns about edema in the legs and significant pain from peripheral neuropathy,
particularly at night, affecting sleep.
The patient uses a wheelchair and expresses challenges with self-care, relying on his loatjui-dd-dqt and a home health aide for assistance. He also receives physical therapy twice a week and is expecting a home assessment from a palliative care
doctor, tomorrow. The patient reports taking gabapentin for neuropathic pain but mentions it is not providing relief. He has also been prescribed oxycodone, though it is noted that this is not typically recommended for neuropathy due to risk
factors, including fall risk. He was initially hoping to be admitted to the hospital. Similar request noted during ED visit 2 weeks ago however no indication for acute hospitalization, evaluated by case management and discharged to home.
After lengthy discussion with the patient, he does note that his ongoing issues are chronic, no acute issues.
He is most concerned with some intermittent shortness of breath but has not had a cough, no chest pain. No recent change in medications.
He has been compliant with compression stockings during the day, off at nighttime.
Uses CPAP at nighttime but admits that this occasionally falls off and he is unable to pick it up off the ground once this happens.
His dytdfnd-wm-wtq helps him twice daily and patient has a home health aide that gives him a shower once a week. The home health aide is scheduled to come to the house today, August 04.
He also notes intermittent dental pain and admits that he has difficulty getting out of the house to seek dentist evaluation. He denies difficulty chewing nor difficulty swallowing. No facial pain or swelling and has not had a fever.
He is also noted some pain and redness posterior left elbow, ongoing for several weeks. No injury nor fall.
Past History
Past History
ED Past Medical History: Arrthythmia (Atrial fib), Asthma, CHF, COPD, HTN, IDDM, ID (Denies) and Other (Sleep apnea uses CPAP, Neuropathy, PNA, )
ED Past Surgical History: Cardiac (Pacemaker for III degree heart block), Orthopedic (Right hip surgery, Back surgery, ) and Tonsilectomy
Social History
Tobacco: Non-smoker
Alcohol: None
Personal: Single
Living: alone (Cowxyhd-qg-myl and or sister visit twice daily to assist with meals, medications, ambulation. Home health aide once weekly and physical therapy twice weekly.)
Employment: Retired
Family History
Family History: Other (Noncontributory)
Phy Exam
Physical Exam
Physical Exam:
GENERAL: 74-year-old gentleman appears his stated age, awake and alert, pleasant, quite chatty and overall appears in no acute distress. No respiratory distress, no cough. Vital signs within normal limits.
EYE: pupils equal and reactive. anicteric
NECK: Supple, nontender, no meningismus, no significant adenopathy. No JVD.
ENT: posterior pharynx is clear, oral mucosa is moist. TM clear b/l, nares patent.
CARDIAC: Regular rate and rhythm. no murmur.
LUNGS: Clear breath sounds bilaterally, no acute respiratory distress, no wheezes/rales/rhonchi
ABDOMEN: Rotund, soft, nondistended, without focal tenderness, no r/g, no cvat. normoactive BS.
NEUROLOGICAL: Alert and oriented x3, no focal neuro deficits.
SKIN: Warm and dry, normal color, there is chronic appearing dermatitis bilateral anterior lower legs right greater than left without erythema. There is a superficial vesicle right heel that is very minimally fluctuant, no erythema, no focal
tenderness. No drainage. No surrounding erythema nor soft tissue swelling. Left posterior elbow has a 4 cm circular erythematous patch with mildly raised borders that is minimally tender to palpation. No palpable heat. No lymphangitis. No
fluctuance. Full elbow range of motion without difficulty nor pain.
MUSCULOSKELETAL: No clubbing or cyanosis. There is trace edema noted bilateral dorsal feet. Peripheral pulses are full and equal b/l. No palpable tenderness.
PSYCH: Normal and appropriate interaction.
Course
Orders/Labs/Results
Orders:
Orders
08/04/25 03:45
Electrocardiogram (*1) Urgent
Reason for Study: Shortness of Breath
EKG- Treatment ONCE
08/04/25 03:46
CR Obstruct Series W/pa Chest Urgent
Comment:
Reason For Exam: intermittent SOB, abd pain
08/04/25 04:47
Clotrimazole/Betamet Diprop [Lotrisone Cream] 1 applic TOPICAL NOW STA
08/04/25 05:05
Complete Blood Count/With Diff Urgent
Comprehensive Metabolic Panel Urgent
Lipase Urgent
NT-proBNP Urgent
Troponin I Urgent
Abnormal Lab Results
08/04/25
05:05
RBC 3.70 L 10^6/uL
(4.70-6.10)
Hgb 11.5 L g/dL
(13.0-18.0)
Hct 34.0 L %
(39.0-52.0)
MCH 31.1 H pg
(27.0-31.0)
RDW 15.8 H %
(11.5-14.5)
Abs Immat Gran (auto) 0.1 H 10^3/uL
(0-0.05)
Immature Gran % 0.9 H %
(0-0.5)
BUN 34 H mg/dl
(9-20)
Creatinine 1.4 H mg/dL
(0.7-1.3)
Glucose 129 H mg/dl
(70-99)
08/04/25 05:05
08/04/25 05:05
Vital Signs
Initial and Last Documented VS:
Initial Vital Signs
Temp Pulse Resp BP Pulse Ox
99.5 F 82 20 113/87 95
08/04/25 00:44 08/04/25 00:44 08/04/25 00:44 08/04/25 00:44 08/04/25 00:44
Last Documented Vital Signs
Temp Pulse Resp BP Pulse Ox
99.5 F 82 20 132/66 94
08/04/25 00:44 08/04/25 00:44 08/04/25 00:44 08/04/25 03:00 08/04/25 06:15
MDM/Problems Addressed
Differential Diagnosis Includes:
The Differential Diagnosis includes, in no particular order and is not limited to:
- Exacerbation of COPD
- Congestive heart failure
- Peripheral neuropathy
- Benign headache such as tension headache
- Constipation-related discomfort
- Medication side effects or interactions
- Anxiety or stress-related symptoms
- Possible fungal or bacterial skin infection
- Dental-related pain
- Dehydration or electrolyte imbalance
MDM/Problems Addressed:
Patient presents with multiple seemingly unrelated complaints, all ongoing for quite some time.
It appears that his most pressing issue is social service in nature.
He resides at home alone but does have assistance from his rshymgm-id-old twice daily, home health aide once per week and physical therapy/Occupational Therapy twice per week.
He has had telehealth visits with his PCP who resides in [place] and has an appointment with a palliative care physician scheduled for tomorrow. This palliative care provider is meeting with patient at his home.
Upon review of records patient briefly hospitalized in February of this year with no acute medical issues but more so related to inability to care for himself. He was transferred to halfway facility where he was then discharged back to home.
During most recent visit 2 weeks ago, patient requested to be admitted to the hospital but unfortunately, extensive workup found no acute medical issues requiring acute hospitalization.
He was evaluated by case management and according to case management notes, patient has had similar request for hospitalization and although admitted to a halfway facility, he refused continued stay in SNF and instead elected to be
discharged to home.
He does admit to some chronic neuropathic pain. Maintained on gabapentin and reportedly receives intermittent prescription for oxycodone from his PCP. According to PDMP the last prescription was in March of this year.
Overall appears comfortable. He is quite chatty and admits that we will likely not find any acute issues requiring acute hospitalization.
He is amenable to check labs, EKG, obstruction series.
Will assess for potential exacerbation of CHF. There is nothing to suggest exacerbation of COPD.
If no acute findings he is amenable for discharge to home.
Chronic conditions affecting care: DM, HTN, Cardiomyopathy, Arrhythmia and COPD
*Radiology
Radiology exam reviewed: preliminary read by ED provider (Obstruction series shows poor inspiratory effort otherwise clear lung sharma. Small to moderate amount of stool within the rectum otherwise no obstruction. No free air. Spinal stimulator
lumbar spine.)
*Pulse Oximetry
SaO2: 97
Oxygen Mode of Delivery: Room air
Patient hypoxic: no
*EKG
Interpreted by ED Provider?: Yes
Comparison EKG: no changes (Unchanged from previous April 2025)
Rate: normal
Rhythm: ventricular paced
*Second Crusher Interpretation
Rate: normal
Interpretation: normal
Rhythm: ventricular paced
*Critical Care Note
Total Time (30-74mins, 75-104mins- exclusive of procedures): Not Applicable
Update Note
Update Note:
06:45
Patient continues to appear comfortable. Drinking rebecca bob. Pleasant.
Labs are unremarkable. Similar and unchanged from previous except her BNP has improved. Chronic kidney disease is stable and unchanged.
Obstruction series shows no obstruction. Clear lung sharma.
At this point no indication for acute hospitalization.
Will discharge back to home with recommendations to continue follow-up with his PCP.
He request we placed knee-high compression stockings bilateral lower legs prior to discharge. He generally wears these during the day, on a daily basis, then off at nighttime. He is unable to put stockings on himself.
Patient is scheduled for visit with palliative care physician tomorrow.
Recommend he discuss his options for chronic pain/neuropathic pain with his PCP as well as palliative care provider. Overall appears comfortable, no indication to initiate opioid medication at this point.
ED Attending Note
-
Portions of this chart may have been created with voice recognition software.� Occasional wrong word or��sound alike� substitutions may have occurred due to the inherent limitations of voice recognition software.
Discharge Plan
Departure
Patient Disposition: Home (Routine Discharge)
Date of Disposition: 08/04/25
Time of Disposition: 06:43
Patient with high blood pressure during this ER visit?: No
Condition: Good
Discharge Problem:
Chronic neuropathic pain, Chronic nonambulatory state, Inability to care for self at home, Ambulatory dysfunction
Prescriptions:
No Action
atorvastatin [Lipitor] 10 mg Tablet
10 mg PO HS
escitalopram oxalate [Lexapro] 20 mg Tablet
20 mg PO DAILY
Eliquis 5 mg tablet
5 mg PO BID Qty: 30 0RF
pantoprazole [Protonix] 40 mg Tablet,Delayed Release (Dr/Ec)
40 mg PO DAILY
buspirone 10 mg Tablet
10 mg PO BID
Refresh Classic (PF) 1.4-0.6 % dropperette
1 drops BOTH EYES QIDPRN PRN (Reason: dry eyes)
insulin glargine [Lantus Solostar U-100 Insulin] 100 unit/mL (3 mL) insulin pen
7 unit SC HS
gabapentin 300 mg capsule
300 mg PO BID
gabapentin 600 mg Tablet
600 mg PO HS Qty: 0 0RF
furosemide 80 mg tablet
40 mg PO DAILY Qty: 30 0RF
metoprolol succinate 25 mg Tablet Extended Release 24 Hr
25 mg PO DAILY Qty: 30 0RF
doxycycline hyclate 100 mg tablet
100 mg PO BID Qty: 20 0RF
Referrals:
Alexander Mar MD [Family Provider, Internal Medicine] - Call in 1-3 days for appt
Interventions
Interventions:
*Risk Screen - Suicide Last Done: 08/04/25 00:54
*General Assessment Last Done: 08/04/25 01:19
*Neglect/Abuse Screening Last Done: 08/04/25 00:54
*ED- Fall Risk Assessment Last Done: 08/04/25 00:54
*ED COVID-19 Vaccine History Last Done: 08/04/25 00:54
*ED Influenza Vaccine History Last Done: 08/04/25 00:54
Discharge Date and Time
Print Language: KITTITIAN
[2025-08-04] MEDS: LOTRISONE CREAM 1 APPLIC TOPICAL (05:06)
[2025-08-04 05:50] LABS: ALT (SGPT) 13 U/L (0-50); AST (SGOT) 20 U/L (17-59); Albumin 4.0 g/dl (3.5-5.0); Alkaline Phosphatase 76 U/L (38-126); Blood Urea Nitrogen 34 mg/dl (9-20); Calcium 8.5 mg/dl (8.4-10.2); Carbon Dioxide 28 mmol/L (22-30); Chloride 104 mmol/L (98-107); Estimated Creatinine Clearance 56 ml/min; Glucose 129 mg/dl (70-99); Lipase 62 U/L (23-300); Potassium 4.3 mmol/L (3.5-5.1); Sodium 142 mmol/L (135-145); Total Protein 7.2 g/dl (6.3-8.2); eGFR 52.09
[2025-08-04 05:58] LABS: Troponin I 0.014 ng/ml
[2025-08-04 05:59] LABS: Hematocrit 34.0 % (39.0-52.0); Hemoglobin 11.5 g/dL (13.0-18.0); Mean Corp Hgb Conc. 33.8 g/dL (33.0-37.0); Mean Corpuscular Volume 91.9 fL (80.0-94.0); Nucleated Red Blood Cells % 0 % (-); Platelet Count 155 10^3/uL (130-400); Red Cell Dist. Width 15.8 % (11.5-14.5)
[2025-08-04 07:57] VITALS: BP 143/71
== END 2025-08-04 10:40 | disposition home or self-care (01) ==
LOC: EMR 00:35
PROVIDERS: EMERGENCY PHYSICIAN Emergency Medicine; FAMILY PHYSICIAN Internal Medicine
DX: M79.2 Neuralgia and neuritis, unspecified (principal); G89.29 Other chronic pain; R26.2 Difficulty in walking, not elsewhere classified; K08.89 Other specified disorders of teeth and supporting structures; E11.22 Type 2 diabetes mellitus with diabetic chronic kidney disease; E11.40 Type 2 diabetes mellitus with diabetic neuropathy, unspecified; I13.0 Hypertensive heart and chronic kidney disease with heart failure and stage 1 through stage 4 chronic kidney disease, or unspecified chronic kidney disease; I50.32 Chronic diastolic (congestive) heart failure; N18.9 Chronic kidney disease, unspecified; E78.5 Hyperlipidemia, unspecified; G47.33 Obstructive sleep apnea (adult) (pediatric); J44.9 Chronic obstructive pulmonary disease, unspecified; Z95.810 Presence of automatic (implantable) cardiac defibrillator; I42.9 Cardiomyopathy, unspecified; Z79.4 Long term (current) use of insulin
CPT/HCPCS: 99285; 74022; 80053; 83690; 83880; 84484; 85025; 93005